=== PATIENT | female | born 1945 | race Hispanic/Latino ===

== ENCOUNTER 2018-03-24 20:23 | Inpatient (IN) | payer MEDICARE ==
[2018-03-24] MEDS ORDERED: Sodium Chloride 0.9% 1,000 ML IV ONE (20:46)
[2018-03-24] MEDS ORDERED: Sodium Chloride 0.9% 1,000 ML ONE (21:03)
[2018-03-24 21:11] LABS: BASO % 0.7 % (0.0-2.0); EOS % 0.6 % (0.0-4.0); HEMOGLOBIN 13.6 g/dL (11.0-16.0); LYMPH # 0.8 K/uL (1.0-4.3); MEAN CELL VOLUME 94.3 fL (81.0-99.0); MEAN CORPUSCULAR HEMOGLOBIN 32.4 pg (27.0-31.0); MEAN CORPUSCULAR HGB CONC 34.3 g/dL (33.0-37.0); MONO # 0.6 K/uL (0.0-0.8); MONO % 9.9 % (0.0-10.0); NEUT % 76.8 % (50.0-75.0); RBC 4.21 Mil/uL (3.80-5.20); RED CELL DISTRIBUTION WIDTH 14.3 % (11.5-14.5); WHITE BLOOD COUNT 6.5 K/uL (4.8-10.8)
[2018-03-24 21:15] LABS: ALBUMIN 3.5 g/dL (3.5-5.0); ALT/SGPT 23 U/L (9-52); AST/SGOT 39 U/L (14-36); BLOOD UREA NITROGEN 17 mg/dL (7-17); CALCIUM 8.5 mg/dl (8.6-10.4); GFR AFRICAN-AMERICAN > 60; GFR NON-AFRICAN AMERICAN > 60; LIPASE 125 U/L (23-300)
--- NOTE | 2018-03-24 21:18 | C.PDOC ---
History Of Present Illness 72 year female with no significant PMHx presents to the ED c/o weight loss of approximately 20 Lbs since last year along with frequent diarrhea stools. Patient also states having heat intolerance along with lower extremity swelling. Patient went to her PMD and was told she had hyperthyroidism and was placed on methimazole and betta blockers. Patient noted that since then diarrhea diminished however she still having 3-4 bowel movements a day. Patient recently ahd her betta fabienne changed from metoprolol to propanolol because her pulse was at 120s after changing the medication pulsed lowered to 100. Patient denies recent travel, recent camping, sick contacts. Chief Complaint (Nursing): GI Problem History Per: Patient History/Exam Limitations: no limitations Onset/Duration Of Symptoms: Days Current Symptoms Are (Timing): Still Present Location Of Pain/Discomfort: Diffuse Associated Symptoms: Diarrhea. denies: Nausea, Vomiting Exacerbating Factors: None Alleviating Factors: None Recent travel outside of the [place]: No Additional History Per: Patient Abnormal Vaginal Bleeding: No Past Medical History Reviewed: Historical Data, Nursing Documentation, Vital Signs Vital Signs: Last Vital Signs Temp 100.1 F H 03/24/18 21:08 Pulse 82 03/24/18 23:35 Resp 19 03/24/18 23:35 BP 86/32 L 03/24/18 23:35 Pulse Ox 95 03/24/18 23:44 - Medical History PMH: Cardia Arrhythmia, Hyperthyroidism (DX 2017. MARCH) Surgical History: No Surg Hx Family History: States: Unknown Family Hx - Social History Hx Alcohol Use: No Hx Substance Use: No - Immunization History Hx Tetanus Toxoid Vaccination: No Hx Influenza Vaccination: No Hx Pneumococcal Vaccination: No Review Of Systems Constitutional: Positive for: Weakness. Negative for: Fever, Chills Cardiovascular: Negative for: Chest Pain, Palpitations Respiratory: Negative for: Shortness of Breath Gastrointestinal: Positive for: Diarrhea. Negative for: Vomiting, Abdominal Pain Skin: Negative for: Rash Psych: Negative for: Depression, Suicidal ideation Physical Exam - Physical Exam Appears: Non-toxic, No Acute Distress Skin: Normal Color, Warm, Dry, Other (poor turgor ) Head: Atraumatic, Normacephalic Eye(s): bilateral: Normal Inspection Nose: No Discharge Oral Mucosa: Moist Neck: Normal ROM, Supple, Other (no thyromegaly) Chest: Symmetrical Cardiovascular: Rhythm Regular (midly accelerated at 104), No Murmur, No JVD Respiratory: Normal Breath Sounds, No Rales, No Rhonchi, No Wheezing Gastrointestinal/Abdominal: Soft, No Tenderness, No Guarding, No Rebound Extremity: Normal ROM, No Tenderness, Capillary Refill (< 2 seconds), Swelling ( 2+ b/l mid calf area) Pulses: Left Dorsalis Pedis: Normal, Right Dorsalis Pedis: Normal Neurological/Psych: Oriented x3, Normal Speech, Normal Cranial Nerves, Normal Motor, Normal Sensation Gait: Steady ED Course And Treatment - Laboratory Results Result Diagrams: 03/24/18 20:59 03/24/18 20:59 O2 Sat by Pulse Oximetry: 95 (ON RA) Pulse Ox Interpretation: Normal - CT Scan/US US abdomen Other Rad Studies (CT/US): Read By Radiologist, Radiology Report Reviewed CT/US Interpretation: FINDINGS: Liver: The liver measures 15.7 cm in craniocaudal span. No intrahepatic bile duct dilation. Gallbladder: Gallstones are seen in the gallbladder. The gallbladder wall is thickened measuring 5. mm. A trace amount of pericholecystic fluid is noted. Common bile duct: The common bile duct measures 4 mm. No stones. No dilation. Pancreas: The pancreatic head is not well-seen due to overlying bowel gas. The pancreatic tail is. not well-seen due to bowel gas. Right kidney: The right kidney measures 11.6 x 4.5 x 5.8 cm. No stones. No hydronephrosis. Free fluid: There is normal blood flow direction in the main portal vein. IMPRESSION: 1. Cholelithiasis with gallbladder wall thickening and small amount of pericholecystic fluid. This could. represent acute cholecystitis. Clinical correlation suggested.. Medical Decision Making Medical Decision Making: Impression: diarrhea related to hyperthyroidism, acute febrile illness, Gastroenteritis Plan: * Labs * IV fluids * Tylenol 650 mg PO * Zofran 4 mg IVP * Blood culture * Urine culture * Stool culture * UA Disposition - Disposition Disposition: HOSPITALIZED Disposition Time: 05:35 Condition: FAIR - Clinical Impression Clinical Impression: Cholecystitis - Scribe Statement The provider has reviewed the documentation as recorded by the Scribe Winston Lazaro All medical record entries made by the Scribe were at my direction and personally dictated by me. I have reviewed the chart and agree that the record accurately reflects my personal performance of the history, physical exam, medical decision making, and the department course for this patient. I have also personally directed, reviewed, and agree with the discharge instructions and disposition.
--- NOTE | 2018-03-24 23:41 | US ---
EXAM: US Abdomen Limited, Right Upper Quadrant EXAM DATE/TIME: Exam ordered 03/24/2018 10:04 PM CLINICAL HISTORY: 72 years old, female; Pain; Abdominal pain; Additional info: Lft elevation, pain TECHNIQUE: Real-time ultrasound of the right upper quadrant with image documentation. COMPARISON: No relevant prior studies available. FINDINGS: Liver: The liver measures 15.7 cm in craniocaudal span. No intrahepatic bile duct dilation. Gallbladder: Gallstones are seen in the gallbladder. The gallbladder wall is thickened measuring 5 mm. A trace amount of pericholecystic fluid is noted. Common bile duct: The common bile duct measures 4 mm. No stones. No dilation. Pancreas: The pancreatic head is not well-seen due to overlying bowel gas. The pancreatic tail is not well-seen due to bowel gas. Right kidney: The right kidney measures 11.6 x 4.5 x 5.8 cm. No stones. No hydronephrosis. Free fluid: There is normal blood flow direction in the main portal vein. IMPRESSION: 1. Cholelithiasis with gallbladder wall thickening and small amount of pericholecystic fluid. This could represent acute cholecystitis. Clinical correlation suggested..
[2018-03-24] MEDS ORDERED: Piperacillin/Tazobact 2.25 gm Inj IVPB STA (23:52)
[2018-03-25] MEDS ORDERED: Piperacillin/Tazobact 3.375 gm 100 ML IVPB ONE (00:07)
[2018-03-25] MEDS ORDERED: Iodixanol 320 MG/ML 100 ML BOTTLE IV ONE (01:31)
--- NOTE | 2018-03-25 01:44 | CP.PCM.CON ---
<Gregg John - Last Filed: 03/25/18 01:39> History of Present Illness - History of Present Illness History of Present Illness: Surgery: Dr. Cummins Reason for consult: r/o cholecystitis CC: yellow diarrhea HPI: Patient is a 72 y/o F w/ recent pmhx of hyperthyroidism presents complaining of yellow colored diarrhea, n/v which started about 1 day ago. She denies pain. She reports similar symptoms in the past on and off for about 20 years. She denies blood in stool or vomit. She states she notices the change in stool when she "eats something she isn't supposed to" i.e fatty foods. She states she has been told she has gallstones in the past and had pain before but currently denies similar symptoms of pain. She denies chest pain, SOB. She complains of subjective fever and chills. PMH: hyperthyroidism currently on Methimazole and Propranolol PSH: none Social: current light tobacco user however has smoked almost a pack/day since age 16, denies ETOH or drug abuse. Lives with family. Review of Systems - Constitutional Constitutional: Anorexia, Chills, Fever - EENT Eyes: absent: Blurred Vision, Change in Vision Ears: absent: Disequilibrium, Dizziness Nose/Mouth/Throat: absent: Nasal Congestion, Nasal Trauma - Cardiovascular Cardiovascular: absent: Chest Pain, Diaphoresis, Dyspnea - Respiratory Respiratory: absent: Cough, Wheezing - Gastrointestinal Gastrointestinal: Change in Stool Character, Diarrhea, Loose Stools, Nausea, Vomiting. absent: Abdominal Pain, Bloating, Constipation, Hematemesis, Hematochezia - Genitourinary Genitourinary: absent: Hematuria, Pyuria - Musculoskeletal Musculoskeletal: absent: Back Pain, Neck Pain - Integumentary Integumentary: absent: Acne, Bleeding Lesions - Neurological Neurological: absent: Disequilibrium, Dizziness - Psychiatric Psychiatric: absent: Anxiety, Depression - Endocrine Endocrine: absent: Polyphagia, Polyuria - Hematologic/Lymphatic Hematologic: absent: Easy Bleeding, Easy Bruising Past Patient History - Past Social History Smoking Status: Light Smoker < 10 Cigarettes Daily - CARDIAC Hx Cardia Arrhythmia: Yes - ENDOCRINE/METABOLIC Hx Hyperthyroidism: Yes (DX March) - PSYCHIATRIC Hx Substance Use: No Meds Allergies/Adverse Reactions: Allergies Allergy/AdvReac Type Severity Reaction Status Date / Time No Known Allergies Allergy Unverified 03/24/18 20:31 - Medications Medications: Current Medications Acetaminophen (Tylenol 325mg Tab) 650 mg PO Q6 PRN PRN Reason: Fever >100.4 F Lactated Ringer's (Lactated Ringer's) 1,000 mls @ 75 mls/hr IV .[id number] NEREYDA Ondansetron HCl (Zofran Inj) 4 mg IVP Q4 PRN PRN Reason: Nausea/Vomiting Physical Exam - Constitutional Appears: Non-toxic, No Acute Distress, Chronically Ill - Head Exam Head Exam: ATRAUMATIC, NORMOCEPHALIC - Eye Exam Eye Exam: EOMI, Normal appearance - ENT Exam ENT Exam: Mucous Membranes Moist - Respiratory Exam Respiratory Exam: NORMAL BREATHING PATTERN. absent: Respiratory Distress - Cardiovascular Exam Cardiovascular Exam: REGULAR RHYTHM. absent: Tachycardia - GI/Abdominal Exam GI & Abdominal Exam: Soft. absent: Distended, Guarding, Hernia, Rebound, Rigid , Tenderness - Extremities Exam Extremities exam: Positive for: normal inspection. Negative for: calf tenderness - Neurological Exam Neurological exam: Alert, Oriented x3 - Psychiatric Exam Psychiatric exam: Normal Affect, Normal Mood - Skin Skin Exam: Dry, Normal Color, Warm Results - Vital Signs Recent Vital Signs: Last Vital Signs Temp 100.1 F H 03/24/18 21:08 Pulse 82 03/24/18 23:35 Resp 19 03/24/18 23:35 BP 86/32 L 03/24/18 23:35 Pulse Ox 95 03/24/18 23:44 - Labs Result Diagrams: 03/24/18 20:59 03/24/18 20:59 Labs: Laboratory Results - last 24 hr 03/24/18 03/24/18 03/24/18 20:59 20:59 21:06 WBC 6.5 RBC 4.21 Hgb 13.6 Hct 39.7 MCV 94.3 MCH 32.4 H MCHC 34.3 RDW 14.3 Plt Count 114 L MPV 9.0 Neut % (Auto) 76.8 H Lymph % (Auto) 12.0 L Parmer % (Auto) 9.9 Eos % (Auto) 0.6 Baso % (Auto) 0.7 Neut # (Auto) 5.0 Lymph # (Auto) 0.8 L Parmer # (Auto) 0.6 Eos # (Auto) 0.0 Baso # (Auto) 0.0 Differential Comment Sodium 134 Potassium 4.8 Chloride 97 L Carbon Dioxide 21 L Anion Gap 21 H BUN 17 Creatinine 0.6 L Est GFR ( Amer) > 60 Est GFR (Non-Af Amer) > 60 Random Glucose 91 Lactic Acid 2.4 H Calcium 8.5 L Total Bilirubin 3.5 H AST 39 H ALT 23 Alkaline Phosphatase 103 Total Protein 7.0 Albumin 3.5 Globulin 3.5 Albumin/Globulin Ratio 1.0 Lipase 125 - Imaging and Cardiology US - abdomen Status: Report reviewed by me Additional comment: 5mm GB wall, + fluid, + stones, CBD 4mm no stones or dilation Assessment & Plan - Assessment and Plan (Free Text) Assessment: 72 y/o female w/ diarrhea found to have cholelithiasis r/o cholecystitis Plan: -Tbili 3.5-> will repeat in am after hydration if remains elevated will consider MRCP -plan for HIDA in am, patient w/o abdominal pain at this time -NPO- ok for meds -IVF hydration -symptomatic control -f/u CT scan -pending HIDA determines further surgical intervention, will need full medical clearance prior to OR. -further recs per Dr. Maria G Cross PGY3 <Warren Cummins - Last Filed: 03/29/18 22:09> Meds - Medications Medications: Current Medications Acetaminophen (Tylenol 650mg/20.3ml Solution Ud) 650 mg PO Q4H PRN PRN Reason: Temperature above 100.6 Last Admin: 03/28/18 14:47 Dose: 650 mg Cholestyramine Resin (Prevalite) 4 gm PO Q8H NEREYDA Last Admin: 03/29/18 15:20 Dose: 4 gm Famotidine (Pepcid) 20 mg PO BID NEREYDA Last Admin: 03/29/18 17:57 Dose: 20 mg Norepinephrine Bitartrate 4 mg (/ Dextrose) 254 mls @ 15.24 mls/hr IV .[id number] PRN; Protocol; 4 MCG/MIN PRN Reason: TITRATE PER MD ORDER Last Admin: 03/29/18 17:51 Dose: 3 mcg/min, 11.43 mls/hr Vasopressin 40 units/ Sodium (Chloride) 40 mls @ 0.6 mls/hr IV .Q24H NEREYDA; 0.01 UNITS/MIN PRN Reason: Protocol Last Admin: 03/29/18 17:49 Dose: 0.03 units/min, 1.8 mls/hr Meropenem 500 mg/ Sodium (Chloride) 100 mls @ 100 mls/hr IVPB Q8 NEREYDA PRN Reason: Protocol Last Admin: 03/29/18 21:09 Dose: 100 mls/hr Vancomycin/Sodium Chloride (Vancomycin 1 Gm/Ns 200 Ml) 1 gm in 200 mls @ 166.7 mls/hr IVPB Q24H NEREYDA PRN Reason: Protocol Stop: 04/01/18 10:01 Last Admin: 03/29/18 09:51 Dose: 166.7 mls/hr Acyclovir 500 mg/ Sodium (Chloride) 100 mls @ 100 mls/hr IV Q12H NEREYDA PRN Reason: Protocol Last Admin: 03/29/18 15:20 Dose: 100 mls/hr Sodium Chloride (Sodium Chloride 0.9%) 1,000 mls @ 75 mls/hr IV .[id number] [facility] Last Admin: 03/29/18 09:49 Dose: Not Given Fluconazole (Diflucan Iv 100 Mg/50 Ml Ns) 50 mls @ 100 mls/hr IVPB Q24H [facility] PRN Reason: Protocol Last Admin: 03/29/18 17:46 Dose: 100 mls/hr Levetiracetam 1,000 mg/ Sodium (Chloride) 110 mls @ 420 mls/hr IVPB Q12H [facility] Last Admin: 03/29/18 14:41 Dose: 420 mls/hr Propofol (Diprivan) 1,000 mg in 100 mls @ 1.742 mls/hr IV .Q24H PRN; Protocol; 5 MCG/KG/MIN PRN Reason: TITRATE PER MD ORDER Last Admin: 03/29/18 13:46 Dose: 5 mcg/kg/min, 1.742 mls/hr Insulin Aspart (Novolog) 0 unit SC Q6H [facility] PRN Reason: Protocol Last Admin: 03/29/18 17:57 Dose: Not Given Lactulose (Enulose) 20 gm PO BID [facility] Last Admin: 03/29/18 17:47 Dose: 20 gm Midodrine (Proamatine) 5 mg PO Q8H [facility] Last Admin: 03/29/18 21:19 Dose: 5 mg Phytonadione (Vitamin K Tab) 10 mg PO DAILY NEREYDA Stop: 03/31/18 10:01 Last Admin: 03/29/18 16:00 Dose: 10 mg Potassium Phos/Sodium Phos (Neutra-Phos) 1 pkt PO BID [facility] Last Admin: 03/29/18 17:59 Dose: 1 pkt Propranolol HCl (Inderal) 10 mg PO DAILY [facility] Last Admin: 03/29/18 09:50 Dose: 10 mg Propylthiouracil (Propylthiouracil) 300 mg PO Q8H NEREYDA Stop: 03/30/18 12:01 Last Admin: 03/29/18 21:00 Dose: 300 mg Results - Vital Signs Recent Vital Signs: Last Vital Signs Temp 97.8 F 03/29/18 16:00 Pulse 74 03/29/18 18:11 Resp 23 03/29/18 18:11 BP 106/49 L 03/29/18 18:11 Pulse Ox 92 L 03/29/18 18:11 - Labs Result Diagrams: 03/29/18 07:04 03/29/18 07:01 Labs: Laboratory Results - last 24 hr 03/29/18 03/29/18 03/29/18 05:22 07:01 07:01 WBC RBC Hgb Hct MCV MCH MCHC RDW Plt Count MPV Neut % (Auto) Lymph % (Auto) Parmer % (Auto) Eos % (Auto) Baso % (Auto) Neut # (Auto) Lymph # (Auto) Parmer # (Auto) Eos # (Auto) Baso # (Auto) PT INR Puncture Site Rr pCO2 40 pO2 71 L HCO3 33.2 H ABG pH 7.54 H ABG Total CO2 35.4 H ABG O2 Saturation 97.6 ABG Base Excess 10.7 H ABG Hemoglobin 11.9 ABG Carboxyhemoglobin 2.1 H POC ABG HHb (Measured) 2.3 ABG Methemoglobin 1.1 Jake Test Pos A-a O2 Difference 236.0 Respiratory Index 3.3 Hgb O2 Saturation 94.5 L Vent Mode Prvc Mechanical Rate 12 FiO2 50.0 Tidal Volume 380 PEEP 5 Sodium 140 Potassium 3.4 L Chloride 97 L Carbon Dioxide 35 H Anion Gap 12 BUN 45 H Creatinine 0.6 L Est GFR ( Amer) > 60 Est GFR (Non-Af Amer) > 60 Random Glucose 162 H Lactic Acid Calcium 7.5 L Phosphorus 1.4 L Magnesium 2.0 Total Bilirubin 7.2 H AST 2139 H ALT 914 H Alkaline Phosphatase 86 Total Protein 4.6 L Albumin 1.9 L Globulin 2.7 Albumin/Globulin Ratio 0.7 L Free T4 Thyroxine (T4) 6.18 Free T3 pg/mL 7.99 H Total T3 1.76 03/29/18 03/29/18 03/29/18 07:04 07:05 15:20 WBC 13.0 H RBC 3.90 Hgb 12.3 Hct 37.0 MCV 95.1 MCH 31.7 H MCHC 33.3 RDW 14.3 Plt Count 85 L MPV 11.1 Neut % (Auto) 80.1 H Lymph % (Auto) 13.3 L Parmer % (Auto) 5.5 Eos % (Auto) 0.9 Baso % (Auto) 0.2 Neut # (Auto) 10.4 H Lymph # (Auto) 1.7 Parmer # (Auto) 0.7 Eos # (Auto) 0.1 Baso # (Auto) 0.0 PT 30.2 H* INR 2.8 Puncture Site pCO2 pO2 HCO3 ABG pH ABG Total CO2 ABG O2 Saturation ABG Base Excess ABG Hemoglobin ABG Carboxyhemoglobin POC ABG HHb (Measured) ABG Methemoglobin Jake Test A-a O2 Difference Respiratory Index Hgb O2 Saturation Vent Mode Mechanical Rate FiO2 Tidal Volume PEEP Sodium Potassium Chloride Carbon Dioxide Anion Gap BUN Creatinine Est GFR ( Amer) Est GFR (Non-Af Amer) Random Glucose Lactic Acid Calcium Phosphorus Magnesium Total Bilirubin AST ALT Alkaline Phosphatase Total Protein Albumin Globulin Albumin/Globulin Ratio Free T4 5.21 H Thyroxine (T4) Free T3 pg/mL Total T3 03/29/18 15:29 WBC RBC Hgb Hct MCV MCH MCHC RDW Plt Count MPV Neut % (Auto) Lymph % (Auto) Parmer % (Auto) Eos % (Auto) Baso % (Auto) Neut # (Auto) Lymph # (Auto) Parmer # (Auto) Eos # (Auto) Baso # (Auto) PT INR Puncture Site pCO2 pO2 HCO3 ABG pH ABG Total CO2 ABG O2 Saturation ABG Base Excess ABG Hemoglobin ABG Carboxyhemoglobin POC ABG HHb (Measured) ABG Methemoglobin Jake Test A-a O2 Difference Respiratory Index Hgb O2 Saturation Vent Mode Mechanical Rate FiO2 Tidal Volume PEEP Sodium Potassium Chloride Carbon Dioxide Anion Gap BUN Creatinine Est GFR ( Amer) Est GFR (Non-Af Amer) Random Glucose Lactic Acid 1.7 Calcium Phosphorus Magnesium Total Bilirubin AST ALT Alkaline Phosphatase Total Protein Albumin Globulin Albumin/Globulin Ratio Free T4 Thyroxine (T4) Free T3 pg/mL Total T3 Attending/Attestation - Attestation I have personally seen and examined this patient.: Yes I have fully participated in the care of the patient.: Yes I have reviewed all pertinent clinical information: Yes Notes (Text): Pt was seen and examined at bedside Agree with above note and assessment Pt with severe gastroenteritis with gallstones Labs and radiology reviewed Ass: Gastroenteritis with acidosis with septic shock, gallstone Plan : GI consult ICU management IV antibiotics NPO, IVF Plan d.w pt in detail Risk and benefit explained in detail.
[2018-03-25] MEDS ORDERED: Lactated Ringer's 1,000 ML IV SCH ×3 (01:45→11:03)
[2018-03-25] MEDS ORDERED: Vitamins A & D Oint UD Foilpak ONE (02:12)
[2018-03-25] MEDS ORDERED: Sodium Chloride 0.9% 1,000 ML IV SCH (02:15)
--- NOTE | 2018-03-25 02:24 | CP.PCM.HP ---
<Mayda Estevez - Last Filed: 03/25/18 02:15> History of Present Illness - History of Present Illness History of Present Illness: H&P: 72 year old female with past medical history of recently diagnosed hyperthyroidism 2 weeks ago presented to hospital for intractable diarrhea, N/V and fall. Patient's daughter is at bedside and helps with history. Since yesterday, patient complained of subjective fevers and chills. Yesterday evening patient developed diarrhea with loose watery stools and N/V. She had about 3 episodes of NB/NB vomiting. patient denies having any hematochezia or hemetemesis. Later in the evening, patient was trying to get out of bed when she felt very dizzy and she fell. Denies hitting her or any LOC. Patient was then brought to ED. Patient was diagnosed with hyperthyroidism 2 weeks ago at which point she was started on methimazole and metoprolol. Due to feeling tired and fatigued, her BB was switched to propanolol earlier yesterday by her field traffic investigator and her methimazole was increased as well from tid to QID. ROS: Currently denies CP, SOB, abd pain, N/V, F/C, LA, dizziness. Patient is still c/o diarrhea and lightheadedness PMHx: stated above Sx: denies Social: current smoker 40-50 years, denies ETOH or drug use Meds: methimazole 10 mg BID and Propanolol 20 mg PO BID PMD: Tamra Marie Endo: Dr. Jess Veloz Cardio: Dr. Wilhelm Present on Admission - Present on Admission Any Indicators Present on Admission: No Review of Systems - Constitutional Constitutional: Chills, Fever - EENT Eyes: absent: Blurred Vision, Change in Vision Nose/Mouth/Throat: absent: Nasal Congestion, Nasal Discharge - Cardiovascular Cardiovascular: absent: Chest Pain, Dyspnea, Dyspnea on Exertion, Edema, Leg Edema - Respiratory Respiratory: absent: Cough, Dyspnea, Wheezing, Chest Congestion - Gastrointestinal Gastrointestinal: Diarrhea, Loose Stools, Nausea, Vomiting. absent: Abdominal Pain, Bloating, Constipation, Hematemesis, Hematochezia - Genitourinary Genitourinary: absent: Dysuria, Urinary Urgency - Musculoskeletal Musculoskeletal: absent: Back Pain, Numbness, Tingling - Integumentary Integumentary: absent: Acne, Lesions, Rash, Wounds - Neurological Neurological: absent: Tingling, Weakness - Psychiatric Psychiatric: absent: Anxiety, Depression - Endocrine Endocrine: Palpitations Past Patient History - Past Social History Smoking Status: Light Smoker < 10 Cigarettes Daily Chewing Tobacco Use: No Cigar Use: No Alcohol: None Drugs: Denies - CARDIAC Hx Cardia Arrhythmia: Yes - ENDOCRINE/METABOLIC Hx Hyperthyroidism: Yes (DX March) - PSYCHIATRIC Hx Substance Use: No Meds Allergies/Adverse Reactions: Allergies Allergy/AdvReac Type Severity Reaction Status Date / Time No Known Allergies Allergy Unverified 03/24/18 20:31 Physical Exam - Constitutional Appears: Non-toxic, No Acute Distress - Head Exam Head Exam: ATRAUMATIC - Eye Exam Eye Exam: EOMI - ENT Exam ENT Exam: Mucous Membranes Moist - Respiratory Exam Respiratory Exam: Clear to Auscultation Bilateral. absent: Rales, Rhonchi, Wheezes, Respiratory Distress - Cardiovascular Exam Cardiovascular Exam: REGULAR RHYTHM, +S1, +S2. absent: Diastolic murmur, Gallop , Rubs, Systolic Murmur - GI/Abdominal Exam GI & Abdominal Exam: Normal Bowel Sounds, Soft. absent: Distended, Firm, Guarding, Rebound, Rigid, Tenderness - Extremities Exam Extremities exam: Negative for: pedal edema, tenderness - Neurological Exam Neurological exam: Alert, Oriented x3 - Psychiatric Exam Psychiatric exam: Normal Affect, Normal Mood - Skin Skin Exam: Dry, Intact, Normal Color, Warm Results - Vital Signs Recent Vital Signs: Last Vital Signs Temp 100.1 F H 03/24/18 21:08 Pulse 82 03/24/18 23:35 Resp 19 03/24/18 23:35 BP 86/32 L 03/24/18 23:35 Pulse Ox 95 03/24/18 23:44 - Labs Result Diagrams: 03/24/18 20:59 03/24/18 20:59 Labs: Laboratory Results - last 24 hr 03/24/18 03/24/18 03/24/18 20:59 20:59 21:06 WBC 6.5 RBC 4.21 Hgb 13.6 Hct 39.7 MCV 94.3 MCH 32.4 H MCHC 34.3 RDW 14.3 Plt Count 114 L MPV 9.0 Neut % (Auto) 76.8 H Lymph % (Auto) 12.0 L [place] % (Auto) 9.9 Eos % (Auto) 0.6 Baso % (Auto) 0.7 Neut # (Auto) 5.0 Lymph # (Auto) 0.8 L [place] # (Auto) 0.6 Eos # (Auto) 0.0 Baso # (Auto) 0.0 Differential Comment Sodium 134 Potassium 4.8 Chloride 97 L Carbon Dioxide 21 L Anion Gap 21 H BUN 17 Creatinine 0.6 L Est GFR ( Amer) > 60 Est GFR (Non-Af Amer) > 60 Random Glucose 91 Lactic Acid 2.4 H Calcium 8.5 L Total Bilirubin 3.5 H AST 39 H ALT 23 Alkaline Phosphatase 103 Total Protein 7.0 Albumin 3.5 Globulin 3.5 Albumin/Globulin Ratio 1.0 Lipase 125 Assessment & Plan - Assessment and Plan (Free Text) Assessment: 72 year old female with past medical history of recently diagnosed hyperthyroidism is admitted for intractable diarrhea, N/V likely 2/2 gastroenteritis vs. cholecystitis vs. hyperthyroidism. US on admission showed cholelithiasis with gallbladder wall thickening and small amount of pericholecystic fluid which could represent acute cholecystitis. Patient was noted to have low grade temp of 100.1 on admission and was tachycardic. Intractable diarrhea - 2/2 gastroeneteritis vs. hyperthyroidism vs. cholecystitis - Will check stool studies for stool leukocytes, cultures, c diff and electrolytes - Will also check TSH and Free T4 - NS 100 cc - Will monitor Is and Os Cholelithiasis - with questionable cholecystitis seen on US - Surgery, Dr. Cummins consulted - Will check CT of abd pelvis. HIDA scan also ordered for am - NPO - Pain management with tylenol prn - zofran prn Hyperthyroidism - Recently diagnosed 2 weeks ago. - Will continue home medication: methimazole 10 mg BID - will hold propanolol for now until pt fluid resuscitated - Will check TSh and free T4 Lightheadedness - Likely due to dehydration vs. BB - Will start pt on LR 100 cc - Will check echo in am Prophylaxis - SCDs - Lovenox - Pepcid Case discussed with attending, dr. Quach - Date & Time Date: 03/25/18 Time: 02:24 <Balwinder Quach - Last Filed: 03/25/18 07:59> Results - Vital Signs Recent Vital Signs: Last Vital Signs Temp 98.5 F 03/25/18 06:27 Pulse 86 03/25/18 05:43 Resp 20 03/25/18 05:43 BP 101/48 L 03/25/18 05:43 Pulse Ox 92 L 03/25/18 05:43 - Labs Result Diagrams: 03/25/18 05:57 03/24/18 20:59 Labs: Laboratory Results - last 24 hr 03/24/18 03/24/18 03/24/18 20:59 20:59 21:06 WBC 6.5 RBC 4.21 Hgb 13.6 Hct 39.7 MCV 94.3 MCH 32.4 H MCHC 34.3 RDW 14.3 Plt Count 114 L MPV 9.0 Neut % (Auto) 76.8 H Lymph % (Auto) 12.0 L [place] % (Auto) 9.9 Eos % (Auto) 0.6 Baso % (Auto) 0.7 Neut # (Auto) 5.0 Lymph # (Auto) 0.8 L [place] # (Auto) 0.6 Eos # (Auto) 0.0 Baso # (Auto) 0.0 Differential Comment Sodium 134 Potassium 4.8 Chloride 97 L Carbon Dioxide 21 L Anion Gap 21 H BUN 17 Creatinine 0.6 L Est GFR ( Amer) > 60 Est GFR (Non-Af Amer) > 60 Random Glucose 91 Lactic Acid 2.4 H Calcium 8.5 L Total Bilirubin 3.5 H AST 39 H ALT 23 Alkaline Phosphatase 103 Total Protein 7.0 Albumin 3.5 Globulin 3.5 Albumin/Globulin Ratio 1.0 Lipase 125 Thyroxine (T4) TSH 3rd Generation 03/25/18 03/25/18 05:57 05:57 WBC 4.1 L RBC 3.74 L Hgb 12.0 Hct 35.3 MCV 94.4 MCH 32.1 H MCHC 34.0 RDW 13.9 Plt Count 88 L D MPV 8.6 Neut % (Auto) Lymph % (Auto) 13.3 L [place] % (Auto) 8.3 Eos % (Auto) 1.6 Baso % (Auto) 0.4 Neut # (Auto) Lymph # (Auto) 0.5 L [place] # (Auto) 0.3 Eos # (Auto) 0.1 Baso # (Auto) 0.0 Differential Comment Sodium Potassium Chloride Carbon Dioxide Anion Gap BUN Creatinine Est GFR ( Amer) Est GFR (Non-Af Amer) Random Glucose Lactic Acid Calcium Total Bilirubin AST ALT Alkaline Phosphatase Total Protein Albumin Globulin Albumin/Globulin Ratio Lipase Thyroxine (T4) 13.8 H TSH 3rd Generation < 0.02 L Attending/Attestation - Attestation I have personally seen and examined this patient.: Yes I have fully participated in the care of the patient.: Yes I have reviewed all pertinent clinical information: Yes Notes (Text): 03/25/18 07:54 * Hypotension likely form diarrhea, as presentation intractable, 2 days * Being treated and meds adjusted for hyperthyroid currently on methimazole 10mg bid, and propranolol 20mg bid * ? cholecystities distended gb lili gb fluid, and calculus, but clinically not tender no wbc count, if need any surg diagnosis should be confirmed by HIDA. * Tobacco abuse * Weight loss from hyperthyroid, which also needs out patient w/u to begin with thyroid scan, to r/o toxic nodule. * Prone to leg edema * Thrombocytopenia Plan IVF Possible hida continue methimazole, propranolol once fluid replaced and bp restored Echo Gi/dvt prophylaxis
--- NOTE | 2018-03-25 03:42 | CT ---
EXAM: CT Abdomen and Pelvis With Intravenous Contrast CLINICAL HISTORY: 72 years old, female; Pain; Abdominal pain TECHNIQUE: Axial computed tomography images of the abdomen and pelvis with intravenous contrast. All CT scans at this facility use one or more dose reduction techniques, viz.: automated exposure control; ma/kV adjustment per patient size (including targeted exams where dose is matched to indication; i.e. head); or iterative reconstruction technique. Coronal and sagittal reformatted images were created and reviewed. CONTRAST: 100 mL of administered intravenously. COMPARISON: US - GALL BLADDER 2018-03-24 22:36 FINDINGS: Lung bases: There is minimal bibasilar atelectasis. Pleural space: Trace right pleural effusion and overlying compressive atelectasis or infiltrate. Heart: The heart demonstrates mild diffuse enlargement. ABDOMEN: Liver: There is a focal liver hypodensity that cannot be further characterized on the current examination. Gallbladder and bile ducts: The gallbladder is distended and thickwalled. Mild haziness of the pericholecystic fat. No ductal dilation. Pancreas: The pancreatic duct is mildly prominent in the measuring 3 mm. In the pancreas is otherwise unremarkable. Spleen: There is a 7 mm hypervascular lesions. No splenomegaly. Adrenals: Unremarkable. No mass. Kidneys and ureters: There is a 3 mm stone in the lower pole of the left kidney.The right kidney is normal. No hydronephrosis. Stomach and bowel: Unremarkable. No obstruction. No mucosal thickening. PELVIS: Appendix: The appendix is mildly prominent measuring 7 mm. Bladder: Unremarkable. No mass. Reproductive: Unremarkable as visualized. ABDOMEN and PELVIS: Intraperitoneal space: Unremarkable. No free air. No significant fluid collection. Bones/joints: No acute fracture. No dislocation. Soft tissues: Unremarkable. Vasculature: The vasculature demonstrates diffuse mild atherosclerotic calcification. There is no evidence of an abdominal aortic aneurysm. Lymph nodes: Unremarkable. No enlarged lymph nodes. IMPRESSION: The gallbladder is distended and thickwalled with minimal stranding of the pericholecystic fat. The combination of findings including the ultrasound raises suspicion for acute cholecystitis. Refer to the dedicated abdominal ultrasound report. Small right pleural effusion with overlying compressive atelectasis or infiltrate. 5 mm small to characterize low-density liver lesion. For patients with low to average risk of malignancy, no further follow-up is necessary. For patients with high risk of malignancy (known malignancy that can metastasize or other risk factors), recommend follow-up abdominal CT or MR in 6 months. Hypervascular splenic lesion. Recommend follow-up abdominal MRI in 6-12 months.
[2018-03-25 06:03] LABS: RBC 3.74 Mil/uL (3.80-5.20); WHITE BLOOD COUNT 4.1 K/uL (4.8-10.8)
[2018-03-25 06:04] LABS: BASO % 0.4 % (0.0-2.0); EOS % 1.6 % (0.0-4.0); LYMPH # 0.5 K/uL (1.0-4.3); LYMPH % 13.3 % (20.0-40.0); MEAN CELL VOLUME 94.4 fL (81.0-99.0); MEAN CORPUSCULAR HEMOGLOBIN 32.1 pg (27.0-31.0); MEAN PLATELET VOLUME 8.6 fL (7.2-11.7); MONO # 0.3 K/uL (0.0-0.8); MONO % 8.3 % (0.0-10.0); RED CELL DISTRIBUTION WIDTH 13.9 % (11.5-14.5)
[2018-03-25 06:05] LABS: EOS # 0.1 K/uL (0.0-0.7)
[2018-03-25 06:34] LABS: T4 13.8 ug/dL (5.5-11.0)
[2018-03-25] MEDS ORDERED: methIMAzole 5 MG TAB PO SCH (10:00)
[2018-03-25] MEDS: methIMAzole 5 MG TAB PO SCH ×2 (11:08→18:55)
[2018-03-25] MEDS: Enoxaparin 40 mg Syringe SC SCH (12:33)
--- NOTE | 2018-03-25 12:34 | CP.PCM.PN ---
<Shannon Weaver - Last Filed: 03/25/18 16:02> Subjective - Date & Time of Evaluation Date of Evaluation: 03/25/18 Time of Evaluation: 08:00 - Subjective Subjective: Medicine Note for Hospitalist Service - Dr. Arnel Jean Patient was seen and examined at bedside. Patient reports weakness, nausea and diarrhea. Denied fever, chills, headache, chest pain, vomiting, or urinary symptoms. Objective - Vital Signs/Intake and Output Vital Signs (last 24 hours): Temp Pulse Resp BP Pulse Ox 98.9 F 121 H 23 104/54 L 94 L 03/25/18 11:47 03/25/18 11:40 03/25/18 11:40 03/25/18 11:06 03/25/18 11:40 Intake and Output: 03/25/18 03/25/18 06:59 18:59 Intake Total 100 Balance 100 - Medications Medications: Current Medications Acetaminophen (Tylenol 325mg Tab) 650 mg PO Q6 PRN PRN Reason: Fever >100.4 F Enoxaparin Sodium (Lovenox) 40 mg SC DAILY [facility] Last Admin: 03/25/18 12:33 Dose: 40 mg Famotidine (Pepcid) 20 mg PO BID [facility] Last Admin: 03/25/18 12:33 Dose: Not Given Lactated Ringer's (Lactated Ringer's) 1,000 mls @ 150 mls/hr IV .Q6H40M [facility] Last Admin: 03/25/18 11:07 Dose: 150 mls/hr Methimazole (Tapazole) 10 mg PO BID [facility] Last Admin: 03/25/18 11:08 Dose: 10 mg Ondansetron HCl (Zofran Inj) 4 mg IVP Q4 PRN PRN Reason: Nausea/Vomiting Propranolol HCl (Inderal) 10 mg PO DAILY [facility] - Labs Labs: 03/25/18 05:57 - Constitutional Appears: No Acute Distress - Head Exam Head Exam: NORMAL INSPECTION, NORMOCEPHALIC - Eye Exam Eye Exam: EOMI, Normal appearance (no exolpthamous noted ), PERRL Pupil Exam: NORMAL ACCOMODATION - ENT Exam ENT Exam: Mucous Membranes Dry, Normal Oropharynx - Neck Exam Neck Exam: absent: Thyromegaly (no nodules palpated ) - Respiratory Exam Respiratory Exam: Clear to Ausculation Bilateral, NORMAL BREATHING PATTERN - Cardiovascular Exam Cardiovascular Exam: Tachycardia - GI/Abdominal Exam GI & Abdominal Exam: Soft, Tenderness (generalized ), Normal Bowel Sounds - Extremities Exam Extremities Exam: Normal Inspection. absent: Pedal Edema, Tenderness - Neurological Exam Neurological Exam: Alert, Awake, Oriented x3 - Psychiatric Exam Psychiatric exam: Normal Affect, Normal Mood - Skin Skin Exam: Dry, Intact, Normal Color, Warm Assessment and Plan - Assessment and Plan (Free Text) Assessment: 72 year old female with past medical history of recently diagnosed hyperthyroidism is admitted for intractable diarrhea, N/V likely 2/2 gastroenteritis vs. cholecystitis vs. hyperthyroidism. Abdominal US on admission showed cholelithiasis with gallbladder wall thickening and small amount of pericholecystic fluid which could represent acute cholecystitis. HIDA - negative, cystic duct patent. Plan: Hyperthyroidism - Patient's mobile tester does not come to [facility]; Dr. Ani House consulted - Recently diagnosed 2 weeks ago - Thyroid US: no nodules, cysts, or masses noted - TSH: < 0.02, T4: 13.8, will repeat - Will continue the following medications and adjust accordingly: methimazole 10 mg BID, restarted propanolol 10mg PO daily - F/U autoimmune work up Tachycardia Likely 2/2 Hyperthyroidism - Will continue the following medications and adjust accordingly: methimazole 10 mg BID, restarted propanolol 10mg PO daily Intractable diarrhea Dehydration Dizziness - Likely secondary to hyperthyroidism - Will check stool studies for stool leukocytes, cultures, c diff and electrolytes - LR @150cc/hr - Once stool studies negative for infective cause, will place on Imodium for relief - Currently on liquid diet will advance as tolerated Hx of Cholelithiasis Ruled out Acute Cholecystitis - Surgery, Dr. Cummins consulted - CT of abd pelvis: GB distended and thick walled; combination of findings when associated with ultrasound are suspicuous for acute julio. - Abdominal US: cholelithiasis with GBW thickening and small amounts of percholecystic fluid. This could represent Acute cholecystitis. - HIDA scan: negative; patent cystic duct Liver Lesion - Incidental finding on CT. 5mm small lesion. If low risk of malignancy, no further follow up necessary. If high risk, recommended follow up CT or MRI in 6- 12 months. 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 Recommended follow up abdominal MRI in 6-12 months. Prophylaxis - SCDs - Lovenox - Pepcid Disposition: Pending reccs from [facility] for medical optimization to control her sympathetic symptoms. Rule out infectious cause for n/v/d. DW Dr. Arnel Jean, Shannon Weaver DO, PGY1 <Arnel Jean H - Last Filed: 03/25/18 16:38> Objective - Vital Signs/Intake and Output Vital Signs (last 24 hours): Temp Pulse Resp BP Pulse Ox 98.9 F 104 H 29 H 119/78 98 03/25/18 11:47 03/25/18 14:00 03/25/18 14:00 03/25/18 12:36 03/25/18 14:00 Intake and Output: 03/25/18 03/25/18 06:59 18:59 Intake Total 100 Balance 100 - Medications Medications: Current Medications Acetaminophen (Tylenol 650mg/20.3ml Solution Ud) 650 mg PO Q4H PRN PRN Reason: Temperature above 100.6 Enoxaparin Sodium (Lovenox) 40 mg SC DAILY [facility] Last Admin: 03/25/18 12:33 Dose: 40 mg Famotidine (Pepcid) 20 mg PO BID [facility] Last Admin: 03/25/18 12:33 Dose: Not Given Lactated Ringer's (Lactated Ringer's) 1,000 mls @ 150 mls/hr IV .Q6H40M [facility] Last Admin: 03/25/18 11:07 Dose: 150 mls/hr Ibuprofen (Motrin Tab) 400 mg PO Q6H PRN PRN Reason: Pain, Mild (1-3) Methimazole (Tapazole) 10 mg PO BID [facility] Last Admin: 03/25/18 11:08 Dose: 10 mg Ondansetron HCl (Zofran Inj) 4 mg IVP Q4 PRN PRN Reason: Nausea/Vomiting Propranolol HCl (Inderal) 10 mg PO DAILY [facility] - Labs Labs: 03/25/18 05:57 Attending/Attestation - Attestation I have personally seen and examined this patient.: Yes I have fully participated in the care of the patient.: Yes I have reviewed all pertinent clinical information, including history, physical exam and plan: Yes Notes (Text): 03/25/18 16:32 Medical attending: Patient was seen and eamined by me. Agree with the above note by the resident The patient is a 72 YO female who family explains has been recently diagnosed hyperthyroidism The patient has just been started on medication by her mobile tester She has been having a lot of diarrhea that is watery and it appears she has been dehydrated from this. We are continuing the patient on IVF - the blood pressure improved. When first arrived to hospital there was U/S and also CT of abdomen suggesting possible cholecystitis - however she does not have a WBC and never reported abdominal pain. HIDA scan returned and was normal. Will need ultrasound of thyroid, conintue with the tapazole and also propranolol , and also endocrinology evaluation and also replacement of IVF thank you Arnel Jean
--- NOTE | 2018-03-25 12:53 | NM ---
PROCEDURE: Nuclear Medicine Hepatobiliary Scan HISTORY: r/o cholecystitis COMPARISON: None available. TECHNIQUE: 8.3 mCi of technetium 99m Mebrofenin was administered intravenously. Planar images of the abdomen were obtained at 5 min intervals to 60 mins. Delayed images were also obtained. FINDINGS: LIVER: Timely and homogenous uptake. COMMON BILE DUCT: identified at 25 mins. GALLBLADDER: identified at 20 mins. SMALL BOWEL: Identified at 46 mins. IMPRESSION: Normal Hepatobiliary Scan. The cystic duct is patent.
--- NOTE | 2018-03-25 12:57 | RAD ---
HISTORY: decreased SaO2 COMPARISON: No prior study available for comparison TECHNIQUE: Chest PA and lateral FINDINGS: LUNGS: .No acute consolidation. PLEURA: No significant pleural effusion identified. No pneumothorax apparent. CARDIOVASCULAR: Cardiomegaly. OSSEOUS STRUCTURES: No significant abnormalities. VISUALIZED UPPER ABDOMEN: Normal. OTHER FINDINGS: None. IMPRESSION: No active disease.
--- NOTE | 2018-03-25 15:29 | US ---
HISTORY: new diagnosed hyperthyroidism TECHNIQUE: Sonographic evaluation of the thyroid gland. COMPARISON: FINDINGS: RIGHT LOBE: Measures 5.2 x 2.6 x 2.0 cm. Heterogeneous echotexture echotexture but normal flow. Nodules: None LEFT LOBE: Measures 4.9 x 1.9 x 2.2 cm. Heterogeneous echotexture echotexture but normal flow. Nodules: None ISTHMUS: Measures 5.7 cm. Heterogeneous echotexture echotexture but normal flow. Nodules: None OTHER FINDINGS: None . IMPRESSION: Mildly enlarged right lobe and isthmus are identified with the left lobe upper limits normal size. Overall parenchymal appearance is heterogeneous in echotexture without focal mass or cyst is defined.
[2018-03-25] MEDS ORDERED: Etomidate 20 mg/10ml Inj IV ONE (16:23)
[2018-03-25] MEDS ORDERED: Acetaminophen 650mg/20.3ml solution UD PO PRN (16:25)
[2018-03-25 16:47] LABS: BASO % 0.4 % (0.0-2.0); EOS % 0.4 % (0.0-4.0); HEMOGLOBIN 13.2 g/dL (11.0-16.0); INR 3.1; LYMPH # 0.4 K/uL (1.0-4.3); LYMPH % 6.1 % (20.0-40.0); MEAN CELL VOLUME 96.2 fL (81.0-99.0); MEAN CORPUSCULAR HEMOGLOBIN 31.7 pg (27.0-31.0); MEAN PLATELET VOLUME 9.4 fL (7.2-11.7); MONO # 0.8 K/uL (0.0-0.8); MONO % 11.1 % (0.0-10.0); NEUT # 5.8 K/uL (1.8-7.0); NRBC % 0.2 % (0.0-2.0); PLATELET COUNT 84 K/uL (130-400); RBC 4.16 Mil/uL (3.80-5.20); RED CELL DISTRIBUTION WIDTH 14.7 % (11.5-14.5)
--- NOTE | 2018-03-25 16:48 | RAD ---
HISTORY: post intubation COMPARISON: Portable chest 03/25/2018. FINDINGS: Endotracheal tube is identified placed terminating 2.5 cm above the kaila. LUNGS: No active pulmonary disease. PLEURA: No significant pleural effusion identified, no pneumothorax apparent. CARDIOVASCULAR: Stable cardiomegaly. No pulmonary vascular congestion. OSSEOUS STRUCTURES: No significant abnormalities. VISUALIZED UPPER ABDOMEN: Normal. OTHER FINDINGS: None. IMPRESSION: Stable cardiomegaly. No interval pulmonary vascular congestion, infiltrate, pneumothorax or pleural effusion identified. ET tube in good apparent position.
[2018-03-25 16:49] LABS: SQUAMOUS EPITHIAL 8 /hpf (0-5); URINE BACTERIA FEW (<OCC); URINE BILIRUBIN NEGATIVE (NEGATIVE); URINE BLOOD 1+ (NEGATIVE); URINE CLARITY Hazy (Clear); URINE COLOR Amber (YELLOW); URINE GLUCOSE (UA) NORMAL (Normal); URINE LEUKOCYTE ESTERASE TRACE Leu/uL (Negative); URINE PROTEIN 1+ mg/dL (NEGATIVE); URINE UROBILINOGEN NORMAL mg/dL (0.2-1.0)
[2018-03-25 16:53] LABS: ARTERIAL BLOOD GAS HCO3 17.2 mmol/L (21-28); ARTERIAL BLOOD GAS HEMOGLOBIN 12.7 g/dL (11.7-17.4); ARTERIAL BLOOD GAS O2 SAT 100.5 % (95-98); ARTERIAL BLOOD GAS PCO2 31 mm/Hg (35-45); ARTERIAL BLOOD GAS PO2 500 mm/Hg (80-100); ARTERIAL BLOOD GAS TCO2 16.3 mmol/L (22-28)
[2018-03-25 16:53] LABS: PROTHROMBIN TIME 34.1 SECONDS (9.7-12.2)
--- NOTE | 2018-03-25 16:57 | CARD ---
APPROVED REPORT EXAM: Two-dimensional and M-mode echocardiogram with Doppler and color Doppler. Other Information Quality : Good[employer] : INDICATION Dyspnea Tachycardia 2D DIMENSIONS IVSd0.6 (0.7-1.1cm)LVDd5.5 (3.9-5.9cm) PWd0.7 (0.7-1.1cm)LVDs5.0 (2.5-4.0cm) FS (%) 9.5 %LVEF (%)20.6 (>50%) M-Mode DIMENSIONS Left Atrium (MM)4.34 (2.5-4.0cm)Aortic Root2.44 (2.2-3.7cm) Aortic Cusp Exc.1.93 (1.5-2.0cm) Aortic Valve AI P 1/2 [id number] Mitral Valve MV E Khqiknsk13.6cm/sMV A Dsjdepbc23.3cm/sE/A ratio1.5 TDI E/Lateral E'0.0E/Medial E'0.0 Tricuspid Valve TR Peak [id number]/sTR Peak [id number] LEFT VENTRICLE The Left Ventricle is mildly dilated. There is normal left ventricular wall thickness. The systolic function is severely impaired. There is global hypokinesis of the left ventricle. Transmitral Doppler flow pattern is abnormal. No left ventricle thrombus noted on this study. RIGHT VENTRICLE The right ventricle is normal size. There is normal right ventricular wall thickness. Systolic function is mildly reduced. ATRIA The left atrium is mildly dilated. The right atrium is mildly dilated. AORTIC VALVE The aortic valve is mildly thickened. There is mild aortic regurgitation. MITRAL VALVE The mitral valve is mildly thickened. There is no mitral valve stenosis. Mitral regurgitation is mild to moderate. TRICUSPID VALVE There is moderate tricuspid regurgitation. GREAT VESSELS The aortic root is normal in size. The IVC collapses <50% with inspiration. PERICARDIAL EFFUSION There is no pericardial effusion. <Conclusion> The Left Ventricle is mildly dilated. There is normal left ventricular wall thickness. The systolic function is severely impaired. There is global hypokinesis of the left ventricle. No left ventricle thrombus noted on this study. There is mild aortic regurgitation. Mitral regurgitation is mild to moderate. There is moderate tricuspid regurgitation.
[2018-03-25 17:04] LABS: ALB/GLOB RATIO 0.9 (1.0-2.1); ALBUMIN 3.1 g/dL (3.5-5.0); ALT/SGPT 84 U/L (9-52); AST/SGOT 278 U/L (14-36); BLOOD UREA NITROGEN 32 mg/dL (7-17); CALCIUM 8.4 mg/dl (8.6-10.4); GFR AFRICAN-AMERICAN 59; GFR NON-AFRICAN AMERICAN 49
[2018-03-25] MEDS ORDERED: Dextrose 50% SYRINGE Inj (50 ml) IV STA ×2 (17:07→17:08)
[2018-03-25] MEDS ORDERED: Dextrose 50% SYRINGE Inj (50 ml) ONE (17:07)
[2018-03-25] MEDS ORDERED: Sodium Chloride 0.9% 250 ML IV ONE (17:19)
[2018-03-25] MEDS: Acetaminophen 650mg/20.3ml solution UD PO PRN (17:23)
[2018-03-25 17:25] LABS: BANDS 2 % (0-2); LYMPHOCYTE 5 % (20-40); MONOCYTE 8 % (0-10); NEUTROPHIL 85 % (50-75); TOTAL CELLS COUNTED 100
[2018-03-25 17:26] LABS: PLATELET ESTIMATE DECREASED (NORMAL)
[2018-03-25 17:47] LABS: ARTERIAL BLOOD GAS HEMOGLOBIN 12.4 g/dL (11.7-17.4); ARTERIAL BLOOD GAS O2 SAT 82.5 % (95-98); ARTERIAL BLOOD GAS PCO2 32 mm/Hg (35-45); ARTERIAL BLOOD GAS PH 7.22 (7.35-7.45); ARTERIAL BLOOD GAS PO2 49 mm/Hg (80-100); ARTERIAL BLOOD GAS TCO2 14.1 mmol/L (22-28)
[2018-03-25] MEDS ORDERED: Sodium Bicarbonate (8.4%) 50 Meq Syringe IVP ONE ×2 (17:49→17:50)
[2018-03-25] MEDS ORDERED: Sodium Chloride 0.9% 500 ML IV ONE (17:59)
[2018-03-25] MEDS ORDERED: Propranolol 1 mg/mL Inj IVP ONE (18:02)
--- NOTE | 2018-03-25 18:27 | CP.PCM.CON ---
<Blanca Carmen - Last Filed: 03/25/18 20:32> History of Present Illness - History of Present Illness History of Present Illness: 72 year old female with past medical history of recently diagnosed hyperthyroidism 2 weeks ago presented to hospital for intractable diarrhea, N/V and fall. Patient's daughter is at bedside and helps with history. Since yesterday, patient complained of subjective fevers and chills. Yesterday evening patient developed diarrhea with loose watery stools and N/V. She had about 3 episodes of NB/NB vomiting. patient denies having any hematochezia or hemetemesis. Later in the evening, patient was trying to get out of bed when she felt very dizzy and she fell. Denies hitting her or any LOC. Patient was then brought to ED. Patient was diagnosed with hyperthyroidism 2 weeks ago at which point she was started on methimazole and metoprolol. Due to feeling tired and fatigued, her BB was switched to propanolol earlier yesterday by her group marketing vp and her methimazole was increased as well from tid to QID. ICU team consulted on this patient for Respiratory distress post HIDA scan. Patient was intubated emergently and started on Norepinephrine and BiCarb Drip. Patient currently being treated for thyroid storm with Hydrocortisone and Methimazole ROS: Intubated. History from Chart. PMHx: stated above Sx: denies Social: current smoker 40-50 years, denies ETOH or drug use Meds: methimazole 10 mg BID and Propanolol 20 mg PO BID PMD: Tamra Marie Endo: Dr. Jess Veloz Cardio: Dr. Wilhelm Review of Systems - Review of Systems Systems not reviewed;Unavailable: Intubated All systems: reviewed and no additional remarkable complaints except (As per HPI ) Past Patient History - Past Social History Smoking Status: Light Smoker < 10 Cigarettes Daily - CARDIAC Hx Cardia Arrhythmia: Yes - PULMONARY Hx Respiratory Disorders: No - NEUROLOGICAL Hx Neurological Disorder: No - HEENT Hx HEENT Problems: No - RENAL Hx Chronic Kidney Disease: No - ENDOCRINE/METABOLIC Hx Hyperthyroidism: Yes (DX March) - HEMATOLOGICAL/ONCOLOGICAL Hx Blood Disorders: No - INTEGUMENTARY Hx Dermatological Problems: No - MUSCULOSKELETAL/RHEUMATOLOGICAL Hx Falls: Yes (felt dizzy at home and fell) - GASTROINTESTINAL Hx Diarrhea: Yes Hx Nausea: Yes - GENITOURINARY/GYNECOLOGICAL Hx Genitourinary Disorders: No - PSYCHIATRIC Hx Psychophysiologic Disorder: No Hx Substance Use: No - SURGICAL HISTORY Hx Surgeries: No - ANESTHESIA Hx Anesthesia: Yes Hx Anesthesia Reactions: No Hx Malignant Hyperthermia: No Has any member of the family had a problem w/ anesthesia?: No Meds Allergies/Adverse Reactions: Allergies Allergy/AdvReac Type Severity Reaction Status Date / Time No Known Allergies Allergy Unverified 03/24/18 20:31 - Medications Medications: Current Medications Acetaminophen (Tylenol 650mg/20.3ml Solution Ud) 650 mg PO Q4H PRN PRN Reason: Temperature above 100.6 Last Admin: 03/25/18 17:23 Dose: 650 mg Enoxaparin Sodium (Lovenox) 40 mg SC DAILY [facility] Last Admin: 03/25/18 12:33 Dose: 40 mg Famotidine (Pepcid) 20 mg PO BID [facility] Last Admin: 03/25/18 12:33 Dose: Not Given Piperacillin Sod/Tazobactam Sod (Zosyn 3.375 Gm Iv Premix) 3.375 gm in 50 mls @ 100 mls/hr IVPB Q8H [facility] PRN Reason: Protocol Sodium Bicarbonate 100 meq/ (Sodium Chloride) 1,100 mls @ 75 mls/hr IV .[id number] [facility] Last Admin: 03/25/18 18:14 Dose: 75 mls/hr Norepinephrine Bitartrate 4 mg (/ Dextrose) 254 mls @ 15.24 mls/hr IV .[id number] PRN; Protocol; 4 MCG/MIN PRN Reason: TITRATE PER MD ORDER Last Admin: 03/25/18 18:15 Dose: 4 mcg/min, 15.24 mls/hr Sodium Chloride (Sodium Chloride 0.9%) 500 mls @ 1,000 mls/hr IV .Q30M ONE Stop: 03/25/18 18:28 Last Admin: 03/25/18 18:18 Dose: 1,000 mls/hr Methimazole (Tapazole) 10 mg PO TID [facility] Propranolol HCl (Inderal) 10 mg PO DAILY [facility] Propranolol HCl (Propranolol Inj) 5 mg IVP ONCE ONE Stop: 03/25/18 18:03 Physical Exam - Additional Findings Additional findings: - Constitutional Appears: No Acute Distress - Head Exam Head Exam: NORMAL INSPECTION, NORMOCEPHALIC - Eye Exam Eye Exam: EOMI, Normal appearance (no exolpthamous noted ), PERRL Pupil Exam: NORMAL ACCOMODATION - ENT Exam ENT Exam: Mucous Membranes Dry, Normal Oropharynx - Neck Exam Neck Exam: absent: Thyromegaly (no nodules palpated ) - Respiratory Exam Respiratory Exam: Clear to Ausculation Bilateral, NORMAL BREATHING PATTERN - Cardiovascular Exam Cardiovascular Exam: Tachycardia - GI/Abdominal Exam GI & Abdominal Exam: Soft, Normal Bowel Sounds. - Extremities Exam Extremities Exam: Normal Inspection. absent: Pedal Edema, Tenderness - Neurological Exam Neurological Exam: Intubated. - Psychiatric Exam Psychiatric exam: Normal Affect, Normal Mood - Skin Skin Exam: Dry, Intact, Normal Color, Warm Results - Vital Signs Recent Vital Signs: Last Vital Signs Temp 104.1 F H 03/25/18 16:00 Pulse 104 H 03/25/18 17:30 Resp 28 H 03/25/18 17:30 BP 80/35 L 03/25/18 18:15 Pulse Ox 98 03/25/18 17:30 - Labs Result Diagrams: 03/25/18 16:34 03/25/18 16:39 Labs: Laboratory Results - last 24 hr 03/24/18 03/24/18 03/24/18 20:59 20:59 21:06 WBC 6.5 RBC 4.21 Hgb 13.6 Hct 39.7 MCV 94.3 MCH 32.4 H MCHC 34.3 RDW 14.3 Plt Count 114 L MPV 9.0 Neut % (Auto) 76.8 H Lymph % (Auto) 12.0 L [place] % (Auto) 9.9 Eos % (Auto) 0.6 Baso % (Auto) 0.7 Neut # (Auto) 5.0 Lymph # (Auto) 0.8 L [place] # (Auto) 0.6 Eos # (Auto) 0.0 Baso # (Auto) 0.0 Neutrophils % (Manual) Band Neutrophils % Lymphocytes % (Manual) Monocytes % (Manual) Differential Comment Platelet Estimate RBC Morphology PT INR Puncture Site pCO2 pO2 HCO3 ABG pH ABG Total CO2 ABG O2 Saturation ABG Base Excess ABG Hemoglobin ABG Carboxyhemoglobin POC ABG HHb (Measured) ABG Methemoglobin Jake Test A-a O2 Difference Respiratory Index Hgb O2 Saturation Vent Mode Mechanical Rate FiO2 Tidal Volume PEEP Sodium 134 Potassium 4.8 Chloride 97 L Carbon Dioxide 21 L Anion Gap 21 H BUN 17 Creatinine 0.6 L Est GFR ( Amer) > 60 Est GFR (Non-Af Amer) > 60 Random Glucose 91 Lactic Acid 2.4 H Calcium 8.5 L Total Bilirubin 3.5 H AST 39 H ALT 23 Alkaline Phosphatase 103 Total Creatine Kinase Total Protein 7.0 Albumin 3.5 Globulin 3.5 Albumin/Globulin Ratio 1.0 Lipase 125 Thyroxine (T4) TSH 3rd Generation Urine Color Urine Clarity Urine pH Ur Specific [place] Urine Protein Urine Glucose (UA) Urine Ketones Urine Blood Urine Nitrate Urine Bilirubin Urine Urobilinogen Ur Leukocyte Esterase Urine WBC (Auto) Urine RBC (Auto) Ur Squamous Epith Cells Urine Bacteria 03/25/18 03/25/18 03/25/18 05:57 05:57 16:34 WBC 4.1 L 7.0 D RBC 3.74 L 4.16 Hgb 12.0 13.2 Hct 35.3 40.0 MCV 94.4 96.2 MCH 32.1 H 31.7 H MCHC 34.0 33.0 RDW 13.9 14.7 H Plt Count 88 L D 84 L MPV 8.6 9.4 Neut % (Auto) 82.0 H Lymph % (Auto) 13.3 L 6.1 L [place] % (Auto) 8.3 11.1 H Eos % (Auto) 1.6 0.4 Baso % (Auto) 0.4 0.4 Neut # (Auto) 5.8 Lymph # (Auto) 0.5 L 0.4 L [place] # (Auto) 0.3 0.8 Eos # (Auto) 0.1 0.0 Baso # (Auto) 0.0 0.0 Neutrophils % (Manual) 85 H Band Neutrophils % 2 Lymphocytes % (Manual) 5 L Monocytes % (Manual) 8 Differential Comment Platelet Estimate Decreased L RBC Morphology Normal PT INR Puncture Site pCO2 pO2 HCO3 ABG pH ABG Total CO2 ABG O2 Saturation ABG Base Excess ABG Hemoglobin ABG Carboxyhemoglobin POC ABG HHb (Measured) ABG Methemoglobin Jake Test A-a O2 Difference Respiratory Index Hgb O2 Saturation Vent Mode Mechanical Rate FiO2 Tidal Volume PEEP Sodium Potassium Chloride Carbon Dioxide Anion Gap BUN Creatinine Est GFR ( Amer) Est GFR (Non-Af Amer) Random Glucose Lactic Acid Calcium Total Bilirubin AST ALT Alkaline Phosphatase Total Creatine Kinase Total Protein Albumin Globulin Albumin/Globulin Ratio Lipase Thyroxine (T4) 13.8 H TSH 3rd Generation < 0.02 L Urine Color Urine Clarity Urine pH Ur Specific [place] Urine Protein Urine Glucose (UA) Urine Ketones Urine Blood Urine Nitrate Urine Bilirubin Urine Urobilinogen Ur Leukocyte Esterase Urine WBC (Auto) Urine RBC (Auto) Ur Squamous Epith Cells Urine Bacteria 03/25/18 03/25/18 03/25/18 16:34 16:34 16:34 WBC RBC Hgb Hct MCV MCH MCHC RDW Plt Count MPV Neut % (Auto) Lymph % (Auto) [place] % (Auto) Eos % (Auto) Baso % (Auto) Neut # (Auto) Lymph # (Auto) [place] # (Auto) Eos # (Auto) Baso # (Auto) Neutrophils % (Manual) Band Neutrophils % Lymphocytes % (Manual) Monocytes % (Manual) Differential Comment Platelet Estimate RBC Morphology PT 34.1 H* INR 3.1 Puncture Site pCO2 pO2 HCO3 ABG pH ABG Total CO2 ABG O2 Saturation ABG Base Excess ABG Hemoglobin ABG Carboxyhemoglobin POC ABG HHb (Measured) ABG Methemoglobin Jake Test A-a O2 Difference Respiratory Index Hgb O2 Saturation Vent Mode Mechanical Rate FiO2 Tidal Volume PEEP Sodium Potassium Chloride Carbon Dioxide Anion Gap BUN Creatinine Est GFR ( Amer) Est GFR (Non-Af Amer) Random Glucose Lactic Acid 5.1 H* Calcium Total Bilirubin AST ALT Alkaline Phosphatase Total Creatine Kinase Total Protein Albumin Globulin Albumin/Globulin Ratio Lipase Thyroxine (T4) TSH 3rd Generation Urine Color Martha Urine Clarity Hazy Urine pH 5.0 Ur Specific [place] 1.057 H Urine Protein 1+ H Urine Glucose (UA) Normal Urine Ketones Negative Urine Blood 1+ H Urine Nitrate Negative Urine Bilirubin Negative Urine Urobilinogen Normal Ur Leukocyte Esterase Trace Urine WBC (Auto) 13 H Urine RBC (Auto) 14 H Ur Squamous Epith Cells 8 H Urine Bacteria Few H 03/25/18 03/25/18 03/25/18 16:39 16:50 17:44 WBC RBC Hgb Hct MCV MCH MCHC RDW Plt Count MPV Neut % (Auto) Lymph % (Auto) [place] % (Auto) Eos % (Auto) Baso % (Auto) Neut # (Auto) Lymph # (Auto) [place] # (Auto) Eos # (Auto) Baso # (Auto) Neutrophils % (Manual) Band Neutrophils % Lymphocytes % (Manual) Monocytes % (Manual) Differential Comment Platelet Estimate RBC Morphology PT INR Puncture Site Lb Line pCO2 31 L 32 L pO2 500 H 49 L HCO3 17.2 L 14.0 L ABG pH 7.30 L 7.22 L ABG Total CO2 16.3 L 14.1 L ABG O2 Saturation 100.5 H 82.5 L ABG Base Excess -9.9 L -13.5 L ABG Hemoglobin 12.7 12.4 ABG Carboxyhemoglobin 1.7 H 2.1 H POC ABG HHb (Measured) -0.5 L 17.0 H ABG Methemoglobin 1.2 0.8 Jake Test Na Na A-a O2 Difference 174.0 196.0 Respiratory Index 0.3 4.0 Hgb O2 Saturation 97.5 80.1 L Vent Mode Prvc Prvc Mechanical Rate 14 18 FiO2 100.0 40.0 Tidal Volume 400 400 PEEP 5 5 Sodium 135 Potassium 4.9 Chloride 101 Carbon Dioxide 17 L Anion Gap 21 H BUN 32 H Creatinine 1.1 Est GFR ( Amer) 59 Est GFR (Non-Af Amer) 49 Random Glucose < 20 L* D Lactic Acid Calcium 8.4 L Total Bilirubin 4.4 H AST 278 H D ALT 84 H D Alkaline Phosphatase 89 Total Creatine Kinase Total Protein 6.4 Albumin 3.1 L Globulin 3.3 Albumin/Globulin Ratio 0.9 L Lipase Thyroxine (T4) TSH 3rd Generation Urine Color Urine Clarity Urine pH Ur Specific [place] Urine Protein Urine Glucose (UA) Urine Ketones Urine Blood Urine Nitrate Urine Bilirubin Urine Urobilinogen Ur Leukocyte Esterase Urine WBC (Auto) Urine RBC (Auto) Ur Squamous Epith Cells Urine Bacteria 03/25/18 18:07 WBC RBC Hgb Hct MCV MCH MCHC RDW Plt Count MPV Neut % (Auto) Lymph % (Auto) [place] % (Auto) Eos % (Auto) Baso % (Auto) Neut # (Auto) Lymph # (Auto) [place] # (Auto) Eos # (Auto) Baso # (Auto) Neutrophils % (Manual) Band Neutrophils % Lymphocytes % (Manual) Monocytes % (Manual) Differential Comment Platelet Estimate RBC Morphology PT INR Puncture Site pCO2 pO2 HCO3 ABG pH ABG Total CO2 ABG O2 Saturation ABG Base Excess ABG Hemoglobin ABG Carboxyhemoglobin POC ABG HHb (Measured) ABG Methemoglobin Jake Test A-a O2 Difference Respiratory Index Hgb O2 Saturation Vent Mode Mechanical Rate FiO2 Tidal Volume PEEP Sodium Potassium Chloride Carbon Dioxide Anion Gap BUN Creatinine Est GFR ( Amer) Est GFR (Non-Af Amer) Random Glucose Lactic Acid Calcium Total Bilirubin AST ALT Alkaline Phosphatase Total Creatine Kinase 854 H Total Protein Albumin Globulin Albumin/Globulin Ratio Lipase Thyroxine (T4) TSH 3rd Generation Urine Color Urine Clarity Urine pH Ur Specific [place] Urine Protein Urine Glucose (UA) Urine Ketones Urine Blood Urine Nitrate Urine Bilirubin Urine Urobilinogen Ur Leukocyte Esterase Urine WBC (Auto) Urine RBC (Auto) Ur Squamous Epith Cells Urine Bacteria Assessment & Plan - Assessment and Plan (Free Text) Assessment: 72 year old female with past medical history of recently diagnosed hyperthyroidism is admitted for intractable diarrhea, N/V likely 2/2 gastroenteritis vs. cholecystitis vs. hyperthyroidism. Abdominal US on admission showed cholelithiasis with gallbladder wall thickening and small amount of pericholecystic fluid which could represent acute cholecystitis. HIDA - negative, cystic duct patent. Patient admitted to ICU for respiratory distress likely 2/2 to thyroid storm. Patient intubated in the ICU and started on Levophed and Bicarb drip. Treatment for thyroid storm began with Methimazole. Plan: Neuro: GCS: 7T Sedation: None Cardio A: tachycardia 2/2 to thyroid storm, Hypotension Cont. Propanolol Cont. Levophed Drip Cardiology on Consult. Pulm: Intubated PRVC 18RR, 40% Fi02, 400 TV, and 5 PEEP AB.22/32/49/14 Renal A: Metabolic Acidosis, Hypocalcemia, MICHELLE (Cr. from 0.6-1.1) Cont. Sodium Bicarb Drip GI A: Elevated LFTs, Likely Shock liver. Diarrhea Monitor Pepcid BID Liquid Diet. C Diff Ordered Fecal Leukocytes ORdered Endo: A: Hyperthyroidism, Thyroid Storm. TSH= <0.02, T4 - 12.9 Tapazole 10mg TID Propanolol 10mg Daily Thyroid US: no nodules, cysts, or masses noted F/U Autoimmune Workup Endocrinology Consulted. Heme/Onc A: Thrombycytopenia Monitor plaletes and stop Lovenox if it continues to downtrend Monitor H&H and signs of bleeding. Consider HIT panel. ID: A: Febrile likely 2/2 to thyroid storm NO Leukocytosis Zosyn for Empiric Coverage. PRN Tylenol F/U Pancultures ProCal Ordered Proph Lovenox and Pepcid Patient seen and discussed with ATtending Blanca Carmen, PGY- 1 <Jose Duran - Last Filed: 03/26/18 16:44> Meds - Medications Medications: Current Medications Acetaminophen (Tylenol 650mg/20.3ml Solution Ud) 650 mg PO Q4H PRN PRN Reason: Temperature above 100.6 Last Admin: 03/25/18 17:23 Dose: 650 mg Cholestyramine Resin (Prevalite) 4 gm PO Q8H [facility] Last Admin: 03/26/18 09:00 Dose: 4 gm Enoxaparin Sodium (Lovenox) 30 mg SC DAILY [facility] Famotidine (Pepcid) 20 mg PO BID [facility] Last Admin: 03/26/18 09:12 Dose: 20 mg Hydrocortisone Sodium Succinate (Solu-Cortef) 100 mg IV Q8H [facility] Last Admin: 03/26/18 09:13 Dose: 100 mg Piperacillin Sod/Tazobactam Sod (Zosyn 3.375 Gm Iv Premix) 3.375 gm in 50 mls @ 100 mls/hr IVPB Q8H [facility] PRN Reason: Protocol Last Admin: 03/26/18 09:30 Dose: 100 mls/hr Norepinephrine Bitartrate 4 mg (/ Dextrose) 254 mls @ 15.24 mls/hr IV .[id number] PRN; Protocol; 4 MCG/MIN PRN Reason: TITRATE PER MD ORDER Last Admin: 03/26/18 15:46 Dose: 9.84 mcg/min, 37.5 mls/hr Vasopressin 40 units/ Sodium (Chloride) 42 mls @ 0.63 mls/hr IV .Q24H [facility]; 0.01 UNITS/MIN PRN Reason: Protocol Last Admin: 03/26/18 13:50 Dose: 0.03 units/min, 2.4 mls/hr Dextrose (Dextrose 10% In Water) 500 mls @ 50 mls/hr IV .Q10H [facility] Last Admin: 03/26/18 05:27 Dose: 50 mls/hr Sodium Bicarbonate 150 meq/ (Dextrose) 1,000 mls @ 150 mls/hr IV .Q6H40M [facility] Propranolol HCl (Inderal) 10 mg PO DAILY [facility] Last Admin: 03/26/18 09:12 Dose: 10 mg Propylthiouracil (Propylthiouracil) 100 mg PO Q6 [facility] Last Admin: 03/26/18 13:40 Dose: 100 mg Results - Vital Signs Recent Vital Signs: Last Vital Signs Temp 98.9 F 03/26/18 12:00 Pulse 82 03/26/18 15:10 Resp 23 03/26/18 15:10 BP 99/39 L 03/26/18 15:46 Pulse Ox 98 03/26/18 15:10 - Labs Result Diagrams: 03/26/18 06:13 03/26/18 06:14 Labs: Laboratory Results - last 24 hr 03/25/18 03/25/18 03/25/18 08:15 16:34 16:34 WBC 7.0 D RBC 4.16 Hgb 13.2 Hct 40.0 MCV 96.2 MCH 31.7 H MCHC 33.0 RDW 14.7 H Plt Count 84 L MPV 9.4 Neut % (Auto) 82.0 H Lymph % (Auto) 6.1 L [place] % (Auto) 11.1 H Eos % (Auto) 0.4 Baso % (Auto) 0.4 Neut # (Auto) 5.8 Lymph # (Auto) 0.4 L [place] # (Auto) 0.8 Eos # (Auto) 0.0 Baso # (Auto) 0.0 Neutrophils % (Manual) 85 H Band Neutrophils % 2 Lymphocytes % (Manual) 5 L Monocytes % (Manual) 8 Toxic Granulation Platelet Estimate Decreased L Large Platelets RBC Morphology Normal Poikilocytosis (manual Ovalocytes Jeff Cells PT 34.1 H* INR 3.1 Puncture Site pCO2 pO2 HCO3 ABG pH ABG Total CO2 ABG O2 Saturation ABG Base Excess ABG Hemoglobin ABG Carboxyhemoglobin POC ABG HHb (Measured) ABG Methemoglobin Jake Test ABG Potassium A-a O2 Difference Respiratory Index Hgb O2 Saturation Glucose Lactate Vent Mode Mechanical Rate FiO2 Tidal Volume PEEP Crit Value Called To Crit Value Called By Crit Value Read Back Blood Gas Notified Time Sodium Potassium Chloride Carbon Dioxide Anion Gap BUN Creatinine Est GFR ( Amer) Est GFR (Non-Af Amer) POC Glucose (mg/dL) Random Glucose Lactic Acid Calcium Phosphorus Magnesium Total Bilirubin AST ALT Alkaline Phosphatase Total Creatine Kinase CK-MB (Mass) Troponin I Total Protein Albumin Globulin Albumin/Globulin Ratio Procalcitonin Free T4 Thyroxine (T4) Free T3 pg/mL Total T3 TSH 3rd Generation Cortisol AM Sample Arterial Blood Potassium Urine Color Urine Clarity Urine pH Ur Specific [place] Urine Protein Urine Glucose (UA) Urine Ketones Urine Blood Urine Nitrate Urine Bilirubin Urine Urobilinogen Ur Leukocyte Esterase Urine WBC (Auto) Urine RBC (Auto) Ur Squamous Epith Cells Urine Bacteria Stool Occult Blood C. difficile Ag & Toxin Negative 03/25/18 03/25/18 03/25/18 16:34 16:34 16:39 WBC RBC Hgb Hct MCV MCH MCHC RDW Plt Count MPV Neut % (Auto) Lymph % (Auto) [place] % (Auto) Eos % (Auto) Baso % (Auto) Neut # (Auto) Lymph # (Auto) [place] # (Auto) Eos # (Auto) Baso # (Auto) Neutrophils % (Manual) Band Neutrophils % Lymphocytes % (Manual) Monocytes % (Manual) Toxic Granulation Platelet Estimate Large Platelets RBC Morphology Poikilocytosis (manual Ovalocytes [place] Cells PT INR Puncture Site pCO2 pO2 HCO3 ABG pH ABG Total CO2 ABG O2 Saturation ABG Base Excess ABG Hemoglobin ABG Carboxyhemoglobin POC ABG HHb (Measured) ABG Methemoglobin Jake Test ABG Potassium A-a O2 Difference Respiratory Index Hgb O2 Saturation Glucose Lactate Vent Mode Mechanical Rate FiO2 Tidal Volume PEEP Crit Value Called To Crit Value Called By Crit Value Read Back Blood Gas Notified Time Sodium 135 Potassium 4.9 Chloride 101 Carbon Dioxide 17 L Anion Gap 21 H BUN 32 H Creatinine 1.1 Est GFR ( Amer) 59 Est GFR (Non-Af Amer) 49 POC Glucose (mg/dL) Random Glucose < 20 L* D Lactic Acid 5.1 H* Calcium 8.4 L Phosphorus Magnesium Total Bilirubin 4.4 H AST 278 H D ALT 84 H D Alkaline Phosphatase 89 Total Creatine Kinase CK-MB (Mass) Troponin I Total Protein 6.4 Albumin 3.1 L Globulin 3.3 Albumin/Globulin Ratio 0.9 L Procalcitonin Free T4 Thyroxine (T4) Free T3 pg/mL Total T3 TSH 3rd Generation Cortisol AM Sample Arterial Blood Potassium Urine Color Martha Urine Clarity Hazy Urine pH 5.0 Ur Specific [place] 1.057 H Urine Protein 1+ H Urine Glucose (UA) Normal Urine Ketones Negative Urine Blood 1+ H Urine Nitrate Negative Urine Bilirubin Negative Urine Urobilinogen Normal Ur Leukocyte Esterase Trace Urine WBC (Auto) 13 H Urine RBC (Auto) 14 H Ur Squamous Epith Cells 8 H Urine Bacteria Few H Stool Occult Blood C. difficile Ag & Toxin 03/25/18 03/25/18 03/25/18 16:50 17:44 18:07 WBC RBC Hgb Hct MCV MCH MCHC RDW Plt Count MPV Neut % (Auto) Lymph % (Auto) [place] % (Auto) Eos % (Auto) Baso % (Auto) Neut # (Auto) Lymph # (Auto) [place] # (Auto) Eos # (Auto) Baso # (Auto) Neutrophils % (Manual) Band Neutrophils % Lymphocytes % (Manual) Monocytes % (Manual) Toxic Granulation Platelet Estimate Large Platelets RBC Morphology Poikilocytosis (manual Ovalocytes [place] Cells PT INR Puncture Site Lb Line pCO2 31 L 32 L pO2 500 H 49 L HCO3 17.2 L 14.0 L ABG pH 7.30 L 7.22 L ABG Total CO2 16.3 L 14.1 L ABG O2 Saturation 100.5 H 82.5 L ABG Base Excess -9.9 L -13.5 L ABG Hemoglobin 12.7 12.4 ABG Carboxyhemoglobin 1.7 H 2.1 H POC ABG HHb (Measured) -0.5 L 17.0 H ABG Methemoglobin 1.2 0.8 Jake Test Na Na ABG Potassium A-a O2 Difference 174.0 196.0 Respiratory Index 0.3 4.0 Hgb O2 Saturation 97.5 80.1 L Glucose Lactate Vent Mode Prvc Prvc Mechanical Rate 14 18 FiO2 100.0 40.0 Tidal Volume 400 400 PEEP 5 5 Crit Value Called To Crit Value Called By Crit Value Read Back Blood Gas Notified Time Sodium Potassium Chloride Carbon Dioxide Anion Gap BUN Creatinine Est GFR ( Amer) Est GFR (Non-Af Amer) POC Glucose (mg/dL) Random Glucose Lactic Acid Calcium Phosphorus Magnesium Total Bilirubin AST ALT Alkaline Phosphatase Total Creatine Kinase 854 H CK-MB (Mass) 5.47 H Troponin I 0.1050 Total Protein Albumin Globulin Albumin/Globulin Ratio Procalcitonin Free T4 Thyroxine (T4) 12.9 H Free T3 pg/mL Total T3 TSH 3rd Generation Cortisol AM Sample Arterial Blood Potassium Urine Color Urine Clarity Urine pH Ur Specific [place] Urine Protein Urine Glucose (UA) Urine Ketones Urine Blood Urine Nitrate Urine Bilirubin Urine Urobilinogen Ur Leukocyte Esterase Urine WBC (Auto) Urine RBC (Auto) Ur Squamous Epith Cells Urine Bacteria Stool Occult Blood C. difficile Ag & Toxin 03/25/18 03/25/18 03/25/18 20:40 20:42 20:42 WBC 8.8 RBC 4.13 Hgb 13.3 Hct 40.0 MCV 97.0 MCH 32.1 H MCHC 33.1 RDW 14.8 H Plt Count 67 L MPV 9.3 Neut % (Auto) 86.3 H Lymph % (Auto) 5.5 L [place] % (Auto) 6.8 Eos % (Auto) 0.7 Baso % (Auto) 0.7 Neut # (Auto) 7.6 H Lymph # (Auto) 0.5 L [place] # (Auto) 0.6 Eos # (Auto) 0.1 Baso # (Auto) 0.1 Neutrophils % (Manual) 92 H Band Neutrophils % 2 Lymphocytes % (Manual) 3 L Monocytes % (Manual) 3 Toxic Granulation Platelet Estimate Decreased L Large Platelets RBC Morphology Normal Poikilocytosis (manual Ovalocytes [place] Cells PT INR Puncture Site pCO2 pO2 HCO3 ABG pH ABG Total CO2 ABG O2 Saturation ABG Base Excess ABG Hemoglobin ABG Carboxyhemoglobin POC ABG HHb (Measured) ABG Methemoglobin Jake Test ABG Potassium A-a O2 Difference Respiratory Index Hgb O2 Saturation Glucose Lactate Vent Mode Mechanical Rate FiO2 Tidal Volume PEEP Crit Value Called To Crit Value Called By Crit Value Read Back Blood Gas Notified Time Sodium Potassium Chloride Carbon Dioxide Anion Gap BUN Creatinine Est GFR ( Amer) Est GFR (Non-Af Amer) POC Glucose (mg/dL) 136 H Random Glucose Lactic Acid Calcium Phosphorus Magnesium Total Bilirubin AST ALT Alkaline Phosphatase Total Creatine Kinase CK-MB (Mass) Troponin I Total Protein Albumin Globulin Albumin/Globulin Ratio Procalcitonin 7.60 H Free T4 Thyroxine (T4) Free T3 pg/mL Total T3 TSH 3rd Generation Cortisol AM Sample Arterial Blood Potassium Urine Color Urine Clarity Urine pH Ur Specific [place] Urine Protein Urine Glucose (UA) Urine Ketones Urine Blood Urine Nitrate Urine Bilirubin Urine Urobilinogen Ur Leukocyte Esterase Urine WBC (Auto) Urine RBC (Auto) Ur Squamous Epith Cells Urine Bacteria Stool Occult Blood C. difficile Ag & Toxin 03/25/18 03/25/18 03/25/18 20:42 22:21 23:40 WBC RBC Hgb Hct MCV MCH MCHC RDW Plt Count MPV Neut % (Auto) Lymph % (Auto) [place] % (Auto) Eos % (Auto) Baso % (Auto) Neut # (Auto) Lymph # (Auto) [place] # (Auto) Eos # (Auto) Baso # (Auto) Neutrophils % (Manual) Band Neutrophils % Lymphocytes % (Manual) Monocytes % (Manual) Toxic Granulation Platelet Estimate Large Platelets RBC Morphology Poikilocytosis (manual Ovalocytes [place] Cells PT INR Puncture Site Lb pCO2 26 L pO2 198 H HCO3 13.6 L ABG pH 7.24 L ABG Total CO2 11.9 L ABG O2 Saturation 100.3 H ABG Base Excess -14.6 L ABG Hemoglobin ABG Carboxyhemoglobin POC ABG HHb (Measured) ABG Methemoglobin Jake Test Na ABG Potassium 4.0 A-a O2 Difference 55.0 Respiratory Index 0.3 Hgb O2 Saturation Glucose 77 Lactate 11.4 H* Vent Mode Prvc Mechanical Rate 18 FiO2 40.0 Tidal Volume 400 PEEP 5 Crit Value Called To Dr. gomez Crit Value Called By Pj mancuso Crit Value Read Back Y Blood Gas Notified Time 2225 Sodium 137 133.0 Potassium 4.2 Chloride 102 99.0 Carbon Dioxide 12 L Anion Gap 27 H BUN 35 H Creatinine 1.4 H Est GFR ( Amer) 45 Est GFR (Non-Af Amer) 37 POC Glucose (mg/dL) 79 Random Glucose 120 H Lactic Acid Calcium 7.6 L Phosphorus Magnesium Total Bilirubin 4.8 H AST 974 H D ALT 234 H D Alkaline Phosphatase 75 Total Creatine Kinase CK-MB (Mass) Troponin I Total Protein 5.8 L Albumin 2.7 L Globulin 3.0 Albumin/Globulin Ratio 0.9 L Procalcitonin Free T4 Thyroxine (T4) Free T3 pg/mL Total T3 TSH 3rd Generation Cortisol AM Sample Arterial Blood Potassium 4.0 Urine Color Urine Clarity Urine pH Ur Specific [place] Urine Protein Urine Glucose (UA) Urine Ketones Urine Blood Urine Nitrate Urine Bilirubin Urine Urobilinogen Ur Leukocyte Esterase Urine WBC (Auto) Urine RBC (Auto) Ur Squamous Epith Cells Urine Bacteria Stool Occult Blood C. difficile Ag & Toxin 03/26/18 03/26/18 03/26/18 03:16 04:25 05:03 WBC RBC Hgb Hct MCV MCH MCHC RDW Plt Count MPV Neut % (Auto) Lymph % (Auto) [place] % (Auto) Eos % (Auto) Baso % (Auto) Neut # (Auto) Lymph # (Auto) [place] # (Auto) Eos # (Auto) Baso # (Auto) Neutrophils % (Manual) Band Neutrophils % Lymphocytes % (Manual) Monocytes % (Manual) Toxic Granulation Platelet Estimate Large Platelets RBC Morphology Poikilocytosis (manual Ovalocytes Jeff Cells PT INR Puncture Site Lb pCO2 27 L pO2 179 H HCO3 17.9 L ABG pH 7.35 ABG Total CO2 15.7 L ABG O2 Saturation 99.9 H ABG Base Excess -9.1 L ABG Hemoglobin ABG Carboxyhemoglobin POC ABG HHb (Measured) ABG Methemoglobin Jake Test Na ABG Potassium 4.0 A-a O2 Difference 72.0 Respiratory Index 0.4 Hgb O2 Saturation Glucose 52 L Lactate 12.1 H* Vent Mode Prvc Mechanical Rate 18 FiO2 40.0 Tidal Volume 400 PEEP 5 Crit Value Called To Nirmala karimi/rn Crit Value Called By Phil monge/rt Crit Value Read Back Y Blood Gas Notified Time 445 Sodium 134.0 Potassium Chloride 98.0 Carbon Dioxide Anion Gap BUN Creatinine Est GFR ( Amer) Est GFR (Non-Af Amer) POC Glucose (mg/dL) 60 L Random Glucose Lactic Acid Calcium Phosphorus Magnesium Total Bilirubin AST ALT Alkaline Phosphatase Total Creatine Kinase 3135 H CK-MB (Mass) 21.2 H Troponin I 0.1160 Total Protein Albumin Globulin Albumin/Globulin Ratio Procalcitonin Free T4 Thyroxine (T4) Free T3 pg/mL Total T3 TSH 3rd Generation Cortisol AM Sample Arterial Blood Potassium 4.0 Urine Color Urine Clarity Urine pH Ur Specific [place] Urine Protein Urine Glucose (UA) Urine Ketones Urine Blood Urine Nitrate Urine Bilirubin Urine Urobilinogen Ur Leukocyte Esterase Urine WBC (Auto) Urine RBC (Auto) Ur Squamous Epith Cells Urine Bacteria Stool Occult Blood C. difficile Ag & Toxin 03/26/18 03/26/18 03/26/18 05:06 06:08 06:13 WBC 11.9 H RBC 4.02 Hgb 12.9 Hct 38.5 MCV 95.9 MCH 32.0 H MCHC 33.4 RDW 14.6 H Plt Count 82 L MPV 10.7 Neut % (Auto) 87.2 H Lymph % (Auto) 7.3 L [place] % (Auto) 5.3 Eos % (Auto) 0.1 Baso % (Auto) 0.1 Neut # (Auto) 10.4 H Lymph # (Auto) 0.9 L [place] # (Auto) 0.6 Eos # (Auto) 0.0 Baso # (Auto) 0.0 Neutrophils % (Manual) 72 Band Neutrophils % 16 H* Lymphocytes % (Manual) 7 L Monocytes % (Manual) 5 Toxic Granulation Present Platelet Estimate Decreased L Large Platelets Present RBC Morphology Poikilocytosis (manual Slight Ovalocytes Slight [place] Cells Slight PT INR Puncture Site pCO2 pO2 HCO3 ABG pH ABG Total CO2 ABG O2 Saturation ABG Base Excess ABG Hemoglobin ABG Carboxyhemoglobin POC ABG HHb (Measured) ABG Methemoglobin Jake Test ABG Potassium A-a O2 Difference Respiratory Index Hgb O2 Saturation Glucose Lactate Vent Mode Mechanical Rate FiO2 Tidal Volume PEEP Crit Value Called To Crit Value Called By Crit Value Read Back Blood Gas Notified Time Sodium Potassium Chloride Carbon Dioxide Anion Gap BUN Creatinine Est GFR ( Amer) Est GFR (Non-Af Amer) POC Glucose (mg/dL) 62 L Random Glucose Lactic Acid Calcium Phosphorus Magnesium Total Bilirubin AST ALT Alkaline Phosphatase Total Creatine Kinase CK-MB (Mass) Troponin I Total Protein Albumin Globulin Albumin/Globulin Ratio Procalcitonin Free T4 Thyroxine (T4) Free T3 pg/mL Total T3 TSH 3rd Generation Cortisol AM Sample Arterial Blood Potassium Urine Color Urine Clarity Urine pH Ur Specific [place] Urine Protein Urine Glucose (UA) Urine Ketones Urine Blood Urine Nitrate Urine Bilirubin Urine Urobilinogen Ur Leukocyte Esterase Urine WBC (Auto) Urine RBC (Auto) Ur Squamous Epith Cells Urine Bacteria Stool Occult Blood Positive H C. difficile Ag & Toxin 03/26/18 03/26/18 03/26/18 06:14 06:14 06:14 WBC RBC Hgb Hct MCV MCH MCHC RDW Plt Count MPV Neut % (Auto) Lymph % (Auto) [place] % (Auto) Eos % (Auto) Baso % (Auto) Neut # (Auto) Lymph # (Auto) [place] # (Auto) Eos # (Auto) Baso # (Auto) Neutrophils % (Manual) Band Neutrophils % Lymphocytes % (Manual) Monocytes % (Manual) Toxic Granulation Platelet Estimate Large Platelets RBC Morphology Poikilocytosis (manual Ovalocytes Jeff Cells PT INR Puncture Site pCO2 pO2 HCO3 ABG pH ABG Total CO2 ABG O2 Saturation ABG Base Excess ABG Hemoglobin ABG Carboxyhemoglobin POC ABG HHb (Measured) ABG Methemoglobin Jake Test ABG Potassium A-a O2 Difference Respiratory Index Hgb O2 Saturation Glucose Lactate Vent Mode Mechanical Rate FiO2 Tidal Volume PEEP Crit Value Called To Crit Value Called By Crit Value Read Back Blood Gas Notified Time Sodium 140 Potassium 4.4 Chloride 98 Carbon Dioxide 16 L Anion Gap 30 H BUN 40 H Creatinine 1.7 H Est GFR ( Amer) 36 Est GFR (Non-Af Amer) 30 POC Glucose (mg/dL) Random Glucose 44 L Lactic Acid Calcium 7.1 L Phosphorus 7.4 H Magnesium 1.9 Total Bilirubin 5.4 H AST 1390 H ALT 361 H D Alkaline Phosphatase 70 Total Creatine Kinase CK-MB (Mass) Troponin I Total Protein 5.7 L Albumin 2.7 L Globulin 3.0 Albumin/Globulin Ratio 0.9 L Procalcitonin Free T4 > 6.99 H Thyroxine (T4) 14.4 H Free T3 pg/mL Total T3 TSH 3rd Generation < 0.02 L Cortisol AM Sample > 616.0 H Arterial Blood Potassium Urine Color Urine Clarity Urine pH Ur Specific [place] Urine Protein Urine Glucose (UA) Urine Ketones Urine Blood Urine Nitrate Urine Bilirubin Urine Urobilinogen Ur Leukocyte Esterase Urine WBC (Auto) Urine RBC (Auto) Ur Squamous Epith Cells Urine Bacteria Stool Occult Blood C. difficile Ag & Toxin 03/26/18 03/26/18 03/26/18 07:40 08:54 08:54 WBC RBC Hgb Hct MCV MCH MCHC RDW Plt Count MPV Neut % (Auto) Lymph % (Auto) [place] % (Auto) Eos % (Auto) Baso % (Auto) Neut # (Auto) Lymph # (Auto) [place] # (Auto) Eos # (Auto) Baso # (Auto) Neutrophils % (Manual) Band Neutrophils % Lymphocytes % (Manual) Monocytes % (Manual) Toxic Granulation Platelet Estimate Large Platelets RBC Morphology Poikilocytosis (manual Ovalocytes [place] Cells PT INR Puncture Site pCO2 pO2 HCO3 ABG pH ABG Total CO2 ABG O2 Saturation ABG Base Excess ABG Hemoglobin ABG Carboxyhemoglobin POC ABG HHb (Measured) ABG Methemoglobin Jake Test ABG Potassium A-a O2 Difference Respiratory Index Hgb O2 Saturation Glucose Lactate Vent Mode Mechanical Rate FiO2 Tidal Volume PEEP Crit Value Called To Crit Value Called By Crit Value Read Back Blood Gas Notified Time Sodium Potassium Chloride Carbon Dioxide Anion Gap BUN Creatinine Est GFR ( Amer) Est GFR (Non-Af Amer) POC Glucose (mg/dL) 130 H Random Glucose Lactic Acid Calcium Phosphorus Magnesium Total Bilirubin AST ALT Alkaline Phosphatase Total Creatine Kinase CK-MB (Mass) Troponin I Total Protein Albumin Globulin Albumin/Globulin Ratio Procalcitonin 8.51 H Free T4 Thyroxine (T4) Free T3 pg/mL > 22.80 H Total T3 6.42 H TSH 3rd Generation Cortisol AM Sample Arterial Blood Potassium Urine Color Urine Clarity Urine pH Ur Specific [place] Urine Protein Urine Glucose (UA) Urine Ketones Urine Blood Urine Nitrate Urine Bilirubin Urine Urobilinogen Ur Leukocyte Esterase Urine WBC (Auto) Urine RBC (Auto) Ur Squamous Epith Cells Urine Bacteria Stool Occult Blood C. difficile Ag & Toxin 03/26/18 11:36 WBC RBC Hgb Hct MCV MCH MCHC RDW Plt Count MPV Neut % (Auto) Lymph % (Auto) [place] % (Auto) Eos % (Auto) Baso % (Auto) Neut # (Auto) Lymph # (Auto) [place] # (Auto) Eos # (Auto) Baso # (Auto) Neutrophils % (Manual) Band Neutrophils % Lymphocytes % (Manual) Monocytes % (Manual) Toxic Granulation Platelet Estimate Large Platelets RBC Morphology Poikilocytosis (manual Ovalocytes [place] Cells PT INR Puncture Site pCO2 pO2 HCO3 ABG pH ABG Total CO2 ABG O2 Saturation ABG Base Excess ABG Hemoglobin ABG Carboxyhemoglobin POC ABG HHb (Measured) ABG Methemoglobin Jake Test ABG Potassium A-a O2 Difference Respiratory Index Hgb O2 Saturation Glucose Lactate Vent Mode Mechanical Rate FiO2 Tidal Volume PEEP Crit Value Called To Crit Value Called By Crit Value Read Back Blood Gas Notified Time Sodium Potassium Chloride Carbon Dioxide Anion Gap BUN Creatinine Est GFR ( Amer) Est GFR (Non-Af Amer) POC Glucose (mg/dL) 201 H Random Glucose Lactic Acid Calcium Phosphorus Magnesium Total Bilirubin AST ALT Alkaline Phosphatase Total Creatine Kinase CK-MB (Mass) Troponin I Total Protein Albumin Globulin Albumin/Globulin Ratio Procalcitonin Free T4 Thyroxine (T4) Free T3 pg/mL Total T3 TSH 3rd Generation Cortisol AM Sample Arterial Blood Potassium Urine Color Urine Clarity Urine pH Ur Specific [place] Urine Protein Urine Glucose (UA) Urine Ketones Urine Blood Urine Nitrate Urine Bilirubin Urine Urobilinogen Ur Leukocyte Esterase Urine WBC (Auto) Urine RBC (Auto) Ur Squamous Epith Cells Urine Bacteria Stool Occult Blood C. difficile Ag & Toxin Attending/Attestation - Attestation I have personally seen and examined this patient.: Yes I have fully participated in the care of the patient.: Yes I have reviewed all pertinent clinical information: Yes Notes (Text): patient seen and examined. 72-year-old female initially admitted to telemetry for possible sepsis/ thyrotoxicosis and later transferred to intensive care unit after got intubated for respiratory distress and lethargy. Patient with long history of smoking. patient found to be in thyrotoxicosis crisis/storm Started on hydrocortisone, propranolol, methimazole, Endocrinology evaluation patient found to have low ejection fraction gentle hydration IV antibiotics Culture and sensitivity vent management
[2018-03-25 18:28] LABS: CK-MB 5.47 ng/mL (0.0-3.38); TROPONIN I 0.105 ng/mL (0.00-0.120)
[2018-03-25 18:33] LABS: T4 12.9 ug/dL (5.5-11.0)
--- NOTE | 2018-03-25 18:41 | CP.PCM.PN ---
Subjective - Date & Time of Evaluation Date of Evaluation: 03/25/18 Time of Evaluation: 18:35 - Subjective Subjective: Patient had to be intubated after she became alter mental status as well as difficulty breathing. She had echo just returned and was reporting severe left ventricular dysfunction and hypokinesis - her EF is only 20% I spoke with endocrinology about the elevated fever of 104 F as well as HRs that have been in the 100 - 110 range. Considering her severe elevated temperatures as well as elevated HR that our concern was for thyroid storm. As mentioned previously she only recently has been diagnosed with hyperthyroidism and only very recently started on medication propranolol as well as tapazole. We are giving IV hydrocortisone as well as I spoke with the family members at bed side as well. We need cardiology evaluation as well whom I spoke to. 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 Objective - Vital Signs/Intake and Output Vital Signs (last 24 hours): Temp Pulse Resp BP Pulse Ox 104.1 F H 104 H 28 H 80/35 L 98 03/25/18 16:00 03/25/18 17:30 03/25/18 17:30 03/25/18 18:15 03/25/18 17:30 Intake and Output: 03/25/18 03/25/18 06:59 18:59 Intake Total 200 Output Total 100 Balance 100 - Medications Medications: Current Medications Acetaminophen (Tylenol 650mg/20.3ml Solution Ud) 650 mg PO Q4H PRN PRN Reason: Temperature above 100.6 Last Admin: 03/25/18 17:23 Dose: 650 mg Enoxaparin Sodium (Lovenox) 40 mg SC DAILY [facility] Last Admin: 03/25/18 12:33 Dose: 40 mg Famotidine (Pepcid) 20 mg PO BID [facility] Last Admin: 03/25/18 12:33 Dose: Not Given Piperacillin Sod/Tazobactam Sod (Zosyn 3.375 Gm Iv Premix) 3.375 gm in 50 mls @ 100 mls/hr IVPB Q8H [facility] PRN Reason: Protocol Sodium Bicarbonate 100 meq/ (Sodium Chloride) 1,100 mls @ 75 mls/hr IV .[id number] [facility] Last Admin: 03/25/18 18:14 Dose: 75 mls/hr Norepinephrine Bitartrate 4 mg (/ Dextrose) 254 mls @ 15.24 mls/hr IV .[id number] PRN; Protocol; 4 MCG/MIN PRN Reason: TITRATE PER MD ORDER Last Admin: 03/25/18 18:15 Dose: 4 mcg/min, 15.24 mls/hr Methimazole (Tapazole) 10 mg PO TID NEREYDA Propranolol HCl (Inderal) 10 mg PO DAILY NEREYDA Propranolol HCl (Propranolol Inj) 5 mg IVP ONCE ONE Stop: 03/25/18 18:03 - Labs Labs: 03/25/18 16:34 03/25/18 16:39 PT 34.1 SECONDS (9.7-12.2) H* 03/25/18 16:34 INR 3.1 03/25/18 16:34 - Constitutional Appears: Confused, Chronically Ill - Head Exam Additional comments: Now intubated - Neurological Exam Neurological Exam: absent: Alert, Awake, Oriented x3 Additional comments: Intubated - Skin Skin Exam: Dry, Pallor Assessment and Plan - Assessment and Plan (Free Text) Assessment: 72 year old female with past medical history of recently diagnosed hyperthyroidism is admitted for intractable diarrhea, shortly thereafter developed respiratory distress and required intubation. There are fever 104 and rapid tachycardia. An echo was done showing severe hypokinesis and also low EF of 20% Thyroid Storm, elevated temperatures, rapid HR 03/25: Discussed with endocrinology. Has recieved IV hydrocortosone 250 mg Patient has been given IV hydrocortisone as well increased dose of tapazole to Q8. Continue the propranolol now, has also received IV propranol Per discussion with family members the patient has only been recently diagnosed with hyperthyroidism Will continue the following medications and adjust accordingly: methimazole 10 mg Q8H, Inderall 10 QD Respiratory failure: Now intubated 03/25: Likley secondary from worsening cardiac function. EF is very low and hypokinesis seen on echo She now has a central line and also on pressor IV levophed as well as bicarb ggt. Intractable diarrhea - secondary to hyperthyroidism Dehydration Dizziness Likely secondary to hyperthyroidism Will check stool studies for stool leukocytes, cultures, c diff and electrolytes Once stool studies negative for infective cause, will place on Imodium for relief Liver Lesion Incidental finding on CT. 5mm small lesion. If low risk of malignancy, no further follow up necessary. If high risk, recommended follow up CT or MRI in 6- 12 months. 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 Recommended follow up abdominal MRI in 6-12 months.
[2018-03-25] MEDS: Piperacill/Tazo 3.375gm in Dex 3.375 GM/50 ML BAG IVPB SCH (18:53)
[2018-03-25 20:45] LABS: BASO # 0.1 K/uL (0.0-0.2); BASO % 0.7 % (0.0-2.0); EOS # 0.1 K/uL (0.0-0.7); EOS % 0.7 % (0.0-4.0); HEMOGLOBIN 13.3 g/dL (11.0-16.0); LYMPH # 0.5 K/uL (1.0-4.3); LYMPH % 5.5 % (20.0-40.0); MEAN CORPUSCULAR HEMOGLOBIN 32.1 pg (27.0-31.0); MEAN CORPUSCULAR HGB CONC 33.1 g/dL (33.0-37.0); MEAN PLATELET VOLUME 9.3 fL (7.2-11.7); MONO # 0.6 K/uL (0.0-0.8); MONO % 6.8 % (0.0-10.0); NEUT # 7.6 K/uL (1.8-7.0); NEUT % 86.3 % (50.0-75.0); NRBC % 0.1 % (0.0-2.0); PLATELET COUNT 67 K/uL (130-400); RBC 4.13 Mil/uL (3.80-5.20); RED CELL DISTRIBUTION WIDTH 14.8 % (11.5-14.5); WHITE BLOOD COUNT 8.8 K/uL (4.8-10.8)
[2018-03-25 21:10] LABS: ALB/GLOB RATIO 0.9 (1.0-2.1); ALBUMIN 2.7 g/dL (3.5-5.0); CALCIUM 7.6 mg/dl (8.6-10.4)
[2018-03-25 21:25] LABS: BANDS 2 % (0-2); LYMPHOCYTE 3 % (20-40); MONOCYTE 3 % (0-10); NEUTROPHIL 92 % (50-75); PLATELET ESTIMATE DECREASED (NORMAL); TOTAL CELLS COUNTED 100
[2018-03-25 22:26] LABS: ARTERIAL BLOOD GAS HCO3 13.6 mmol/L (21-28); ARTERIAL BLOOD GAS O2 SAT 100.3 % (95-98); ARTERIAL BLOOD GAS PCO2 26 mm/Hg (35-45); ARTERIAL BLOOD GAS PH 7.24 (7.35-7.45); ARTERIAL BLOOD GAS PO2 198 mm/Hg (80-100); ARTERIAL BLOOD GAS TCO2 11.9 mmol/L (22-28)
[2018-03-26] MEDS: Piperacill/Tazo 3.375gm in Dex 3.375 GM/50 ML BAG IVPB SCH ×3 (01:22→16:59)
[2018-03-26 03:42] LABS: TROPONIN I 0.116 ng/mL (0.00-0.120)
[2018-03-26 03:51] LABS: CK-MB 21.2 ng/mL (0.0-3.38)
[2018-03-26 04:38] LABS: ARTERIAL BLOOD GAS HCO3 17.9 mmol/L (21-28); ARTERIAL BLOOD GAS O2 SAT 99.9 % (95-98); ARTERIAL BLOOD GAS PCO2 27 mm/Hg (35-45); ARTERIAL BLOOD GAS PH 7.35 (7.35-7.45); ARTERIAL BLOOD GAS PO2 179 mm/Hg (80-100); ARTERIAL BLOOD GAS TCO2 15.7 mmol/L (22-28)
[2018-03-26 06:18] LABS: BASO % 0.1 % (0.0-2.0); EOS % 0.1 % (0.0-4.0); HEMOGLOBIN 12.9 g/dL (11.0-16.0); LYMPH # 0.9 K/uL (1.0-4.3); LYMPH % 7.3 % (20.0-40.0); MEAN CELL VOLUME 95.9 fL (81.0-99.0); MEAN CORPUSCULAR HGB CONC 33.4 g/dL (33.0-37.0); MEAN PLATELET VOLUME 10.7 fL (7.2-11.7); MONO # 0.6 K/uL (0.0-0.8); MONO % 5.3 % (0.0-10.0); NEUT # 10.4 K/uL (1.8-7.0); NEUT % 87.2 % (50.0-75.0); PLATELET COUNT 82 K/uL (130-400); RBC 4.02 Mil/uL (3.80-5.20); RED CELL DISTRIBUTION WIDTH 14.6 % (11.5-14.5); WHITE BLOOD COUNT 11.9 K/uL (4.8-10.8)
[2018-03-26 06:46] LABS: ALB/GLOB RATIO 0.9 (1.0-2.1); ALBUMIN 2.7 g/dL (3.5-5.0); ALT/SGPT 361 U/L (9-52); BLOOD UREA NITROGEN 40 mg/dL (7-17); CALCIUM 7.1 mg/dl (8.6-10.4)
[2018-03-26 06:56] LABS: T4 14.4 ug/dL (5.5-11.0)
[2018-03-26 07:00] LABS: AST/SGOT 1390 U/L (14-36); GFR AFRICAN-AMERICAN 36; GFR NON-AFRICAN AMERICAN 30
[2018-03-26 08:20] LABS: BANDS 16 % (0-2); LYMPHOCYTE 7 % (20-40); MONOCYTE 5 % (0-10); OVALOCYTES SLIGHT; PLATELET ESTIMATE DECREASED (NORMAL); POIKILOCYTOSIS SLIGHT; TOTAL CELLS COUNTED 100
[2018-03-26 08:21] LABS: BURR CELLS SLIGHT; NEUTROPHIL 72 % (50-75); TOXIC GRANULATION PRESENT
--- NOTE | 2018-03-26 08:21 | CP.PCM.CON ---
History of Present Illness - History of Present Illness History of Present Illness: patient seen/examined. full consutl to follow discussed with daughter at the bedside. severe LV dysfunction, possibly related to hyperthyroidism. consider change to more cardioselective betablocker. medical therapy. eventual Lifevest. Past Patient History - Past Social History Smoking Status: Light Smoker < 10 Cigarettes Daily - CARDIAC Hx Cardia Arrhythmia: Yes - PULMONARY Hx Respiratory Disorders: No - NEUROLOGICAL Hx Neurological Disorder: No - HEENT Hx HEENT Problems: No - RENAL Hx Chronic Kidney Disease: No - ENDOCRINE/METABOLIC Hx Hyperthyroidism: Yes (DX 2017. MARCH) - HEMATOLOGICAL/ONCOLOGICAL Hx Blood Disorders: No - INTEGUMENTARY Hx Dermatological Problems: No - MUSCULOSKELETAL/RHEUMATOLOGICAL Hx Falls: Yes (felt dizzy at home and fell) - GASTROINTESTINAL Hx Diarrhea: Yes Hx Nausea: Yes - GENITOURINARY/GYNECOLOGICAL Hx Genitourinary Disorders: No - PSYCHIATRIC Hx Psychophysiologic Disorder: No Hx Substance Use: No - SURGICAL HISTORY Hx Surgeries: No - ANESTHESIA Hx Anesthesia: Yes Hx Anesthesia Reactions: No Hx Malignant Hyperthermia: No Has any member of the family had a problem w/ anesthesia?: No Meds Allergies/Adverse Reactions: Allergies Allergy/AdvReac Type Severity Reaction Status Date / Time No Known Allergies Allergy Unverified 03/24/18 20:31 - Medications Medications: Current Medications Acetaminophen (Tylenol 650mg/20.3ml Solution Ud) 650 mg PO Q4H PRN PRN Reason: Temperature above 100.6 Last Admin: 03/25/18 17:23 Dose: 650 mg Cholestyramine Resin (Prevalite) 4 gm PO Q8H REPLACED BY [facility] Enoxaparin Sodium (Lovenox) 40 mg SC DAILY REPLACED BY [facility] Last Admin: 03/25/18 12:33 Dose: 40 mg Famotidine (Pepcid) 20 mg PO BID REPLACED BY [facility] Last Admin: 03/25/18 18:52 Dose: 20 mg Hydrocortisone Sodium Succinate (Solu-Cortef) 100 mg IV Q8H REPLACED BY [facility] Piperacillin Sod/Tazobactam Sod (Zosyn 3.375 Gm Iv Premix) 3.375 gm in 50 mls @ 100 mls/hr IVPB Q8H NEREYDA PRN Reason: Protocol Last Admin: 03/26/18 01:22 Dose: 100 mls/hr Norepinephrine Bitartrate 4 mg (/ Dextrose) 254 mls @ 15.24 mls/hr IV .[id number] PRN; Protocol; 4 MCG/MIN PRN Reason: TITRATE PER MD ORDER Last Titration: 03/26/18 04:03 Dose: 9.84 mcg/min, 37.5 mls/hr Sodium Bicarbonate 150 meq/ (Sodium Chloride) 1,150 mls @ 150 mls/hr IV .[id number] NEREYDA Last Admin: 03/26/18 07:54 Dose: 150 mls/hr Vasopressin 40 units/ Sodium (Chloride) 42 mls @ 0.63 mls/hr IV .Q24H NEREYDA; 0.01 UNITS/MIN PRN Reason: Protocol Last Titration: 03/26/18 04:00 Dose: 0.03 units/min, 2.4 mls/hr Dextrose (Dextrose 10% In Water) 500 mls @ 50 mls/hr IV .Q10H NEREYDA Last Admin: 03/26/18 05:27 Dose: 50 mls/hr Methimazole (Tapazole) 10 mg PO TID REPLACED BY [facility] Last Admin: 03/25/18 20:44 Dose: 10 mg Propranolol HCl (Inderal) 10 mg PO DAILY REPLACED BY [facility] Results - Vital Signs Recent Vital Signs: Last Vital Signs Temp 100.1 F H 03/26/18 04:00 Pulse 85 03/26/18 07:50 Resp 23 03/26/18 07:50 BP 103/38 L 03/26/18 07:44 Pulse Ox 97 03/26/18 07:50 - Labs Result Diagrams: 03/26/18 06:13 03/26/18 06:14 Labs: Laboratory Results - last 24 hr 03/25/18 03/25/18 03/25/18 16:34 16:34 16:34 WBC 7.0 D RBC 4.16 Hgb 13.2 Hct 40.0 MCV 96.2 MCH 31.7 H MCHC 33.0 RDW 14.7 H Plt Count 84 L MPV 9.4 Neut % (Auto) 82.0 H Lymph % (Auto) 6.1 L [place] % (Auto) 11.1 H Eos % (Auto) 0.4 Baso % (Auto) 0.4 Neut # (Auto) 5.8 Lymph # (Auto) 0.4 L [place] # (Auto) 0.8 Eos # (Auto) 0.0 Baso # (Auto) 0.0 Neutrophils % (Manual) 85 H Band Neutrophils % 2 Lymphocytes % (Manual) 5 L Monocytes % (Manual) 8 Platelet Estimate Decreased L RBC Morphology Normal PT 34.1 H* INR 3.1 Puncture Site pCO2 pO2 HCO3 ABG pH ABG Total CO2 ABG O2 Saturation ABG Base Excess ABG Hemoglobin ABG Carboxyhemoglobin POC ABG HHb (Measured) ABG Methemoglobin Jake Test ABG Potassium A-a O2 Difference Respiratory Index Hgb O2 Saturation Glucose Lactate Vent Mode Mechanical Rate FiO2 Tidal Volume PEEP Crit Value Called To Crit Value Called By Crit Value Read Back Blood Gas Notified Time Sodium Potassium Chloride Carbon Dioxide Anion Gap BUN Creatinine Est GFR ( Amer) Est GFR (Non-Af Amer) POC Glucose (mg/dL) Random Glucose Lactic Acid Calcium Phosphorus Magnesium Total Bilirubin AST ALT Alkaline Phosphatase Total Creatine Kinase CK-MB (Mass) Troponin I Total Protein Albumin Globulin Albumin/Globulin Ratio Procalcitonin Free T4 Thyroxine (T4) TSH 3rd Generation Arterial Blood Potassium Urine Color Martha Urine Clarity Hazy Urine pH 5.0 Ur Specific Reform 1.057 H Urine Protein 1+ H Urine Glucose (UA) Normal Urine Ketones Negative Urine Blood 1+ H Urine Nitrate Negative Urine Bilirubin Negative Urine Urobilinogen Normal Ur Leukocyte Esterase Trace Urine WBC (Auto) 13 H Urine RBC (Auto) 14 H Ur Squamous Epith Cells 8 H Urine Bacteria Few H Stool Occult Blood 03/25/18 03/25/18 03/25/18 16:34 16:39 16:50 WBC RBC Hgb Hct MCV MCH MCHC RDW Plt Count MPV Neut % (Auto) Lymph % (Auto) [place] % (Auto) Eos % (Auto) Baso % (Auto) Neut # (Auto) Lymph # (Auto) [place] # (Auto) Eos # (Auto) Baso # (Auto) Neutrophils % (Manual) Band Neutrophils % Lymphocytes % (Manual) Monocytes % (Manual) Platelet Estimate RBC Morphology PT INR Puncture Site Lb pCO2 31 L pO2 500 H HCO3 17.2 L ABG pH 7.30 L ABG Total CO2 16.3 L ABG O2 Saturation 100.5 H ABG Base Excess -9.9 L ABG Hemoglobin 12.7 ABG Carboxyhemoglobin 1.7 H POC ABG HHb (Measured) -0.5 L ABG Methemoglobin 1.2 Jake Test Na ABG Potassium A-a O2 Difference 174.0 Respiratory Index 0.3 Hgb O2 Saturation 97.5 Glucose Lactate Vent Mode Prvc Mechanical Rate 14 FiO2 100.0 Tidal Volume 400 PEEP 5 Crit Value Called To Crit Value Called By Crit Value Read Back Blood Gas Notified Time Sodium 135 Potassium 4.9 Chloride 101 Carbon Dioxide 17 L Anion Gap 21 H BUN 32 H Creatinine 1.1 Est GFR ( Amer) 59 Est GFR (Non-Af Amer) 49 POC Glucose (mg/dL) Random Glucose < 20 L* D Lactic Acid 5.1 H* Calcium 8.4 L Phosphorus Magnesium Total Bilirubin 4.4 H AST 278 H D ALT 84 H D Alkaline Phosphatase 89 Total Creatine Kinase CK-MB (Mass) Troponin I Total Protein 6.4 Albumin 3.1 L Globulin 3.3 Albumin/Globulin Ratio 0.9 L Procalcitonin Free T4 Thyroxine (T4) TSH 3rd Generation Arterial Blood Potassium Urine Color Urine Clarity Urine pH Ur Specific Reform Urine Protein Urine Glucose (UA) Urine Ketones Urine Blood Urine Nitrate Urine Bilirubin Urine Urobilinogen Ur Leukocyte Esterase Urine WBC (Auto) Urine RBC (Auto) Ur Squamous Epith Cells Urine Bacteria Stool Occult Blood 03/25/18 03/25/18 03/25/18 17:44 18:07 20:40 WBC RBC Hgb Hct MCV MCH MCHC RDW Plt Count MPV Neut % (Auto) Lymph % (Auto) [place] % (Auto) Eos % (Auto) Baso % (Auto) Neut # (Auto) Lymph # (Auto) [place] # (Auto) Eos # (Auto) Baso # (Auto) Neutrophils % (Manual) Band Neutrophils % Lymphocytes % (Manual) Monocytes % (Manual) Platelet Estimate RBC Morphology PT INR Puncture Site Line pCO2 32 L pO2 49 L HCO3 14.0 L ABG pH 7.22 L ABG Total CO2 14.1 L ABG O2 Saturation 82.5 L ABG Base Excess -13.5 L ABG Hemoglobin 12.4 ABG Carboxyhemoglobin 2.1 H POC ABG HHb (Measured) 17.0 H ABG Methemoglobin 0.8 Jake Test Na ABG Potassium A-a O2 Difference 196.0 Respiratory Index 4.0 Hgb O2 Saturation 80.1 L Glucose Lactate Vent Mode Prvc Mechanical Rate 18 FiO2 40.0 Tidal Volume 400 PEEP 5 Crit Value Called To Crit Value Called By Crit Value Read Back Blood Gas Notified Time Sodium Potassium Chloride Carbon Dioxide Anion Gap BUN Creatinine Est GFR ( Amer) Est GFR (Non-Af Amer) POC Glucose (mg/dL) 136 H Random Glucose Lactic Acid Calcium Phosphorus Magnesium Total Bilirubin AST ALT Alkaline Phosphatase Total Creatine Kinase 854 H CK-MB (Mass) 5.47 H Troponin I 0.1050 Total Protein Albumin Globulin Albumin/Globulin Ratio Procalcitonin Free T4 Thyroxine (T4) 12.9 H TSH 3rd Generation Arterial Blood Potassium Urine Color Urine Clarity Urine pH Ur Specific Reform Urine Protein Urine Glucose (UA) Urine Ketones Urine Blood Urine Nitrate Urine Bilirubin Urine Urobilinogen Ur Leukocyte Esterase Urine WBC (Auto) Urine RBC (Auto) Ur Squamous Epith Cells Urine Bacteria Stool Occult Blood 03/25/18 03/25/18 03/25/18 20:42 20:42 20:42 WBC 8.8 RBC 4.13 Hgb 13.3 Hct 40.0 MCV 97.0 MCH 32.1 H MCHC 33.1 RDW 14.8 H Plt Count 67 L MPV 9.3 Neut % (Auto) 86.3 H Lymph % (Auto) 5.5 L [place] % (Auto) 6.8 Eos % (Auto) 0.7 Baso % (Auto) 0.7 Neut # (Auto) 7.6 H Lymph # (Auto) 0.5 L [place] # (Auto) 0.6 Eos # (Auto) 0.1 Baso # (Auto) 0.1 Neutrophils % (Manual) 92 H Band Neutrophils % 2 Lymphocytes % (Manual) 3 L Monocytes % (Manual) 3 Platelet Estimate Decreased L RBC Morphology Normal PT INR Puncture Site pCO2 pO2 HCO3 ABG pH ABG Total CO2 ABG O2 Saturation ABG Base Excess ABG Hemoglobin ABG Carboxyhemoglobin POC ABG HHb (Measured) ABG Methemoglobin Jake Test ABG Potassium A-a O2 Difference Respiratory Index Hgb O2 Saturation Glucose Lactate Vent Mode Mechanical Rate FiO2 Tidal Volume PEEP Crit Value Called To Crit Value Called By Crit Value Read Back Blood Gas Notified Time Sodium 137 Potassium 4.2 Chloride 102 Carbon Dioxide 12 L Anion Gap 27 H BUN 35 H Creatinine 1.4 H Est GFR ( Amer) 45 Est GFR (Non-Af Amer) 37 POC Glucose (mg/dL) Random Glucose 120 H Lactic Acid Calcium 7.6 L Phosphorus Magnesium Total Bilirubin 4.8 H AST 974 H D ALT 234 H D Alkaline Phosphatase 75 Total Creatine Kinase CK-MB (Mass) Troponin I Total Protein 5.8 L Albumin 2.7 L Globulin 3.0 Albumin/Globulin Ratio 0.9 L Procalcitonin 7.60 H Free T4 Thyroxine (T4) TSH 3rd Generation Arterial Blood Potassium Urine Color Urine Clarity Urine pH Ur Specific Reform Urine Protein Urine Glucose (UA) Urine Ketones Urine Blood Urine Nitrate Urine Bilirubin Urine Urobilinogen Ur Leukocyte Esterase Urine WBC (Auto) Urine RBC (Auto) Ur Squamous Epith Cells Urine Bacteria Stool Occult Blood 03/25/18 03/25/18 03/26/18 22:21 23:40 03:16 WBC RBC Hgb Hct MCV MCH MCHC RDW Plt Count MPV Neut % (Auto) Lymph % (Auto) [place] % (Auto) Eos % (Auto) Baso % (Auto) Neut # (Auto) Lymph # (Auto) [place] # (Auto) Eos # (Auto) Baso # (Auto) Neutrophils % (Manual) Band Neutrophils % Lymphocytes % (Manual) Monocytes % (Manual) Platelet Estimate RBC Morphology PT INR Puncture Site Lb pCO2 26 L pO2 198 H HCO3 13.6 L ABG pH 7.24 L ABG Total CO2 11.9 L ABG O2 Saturation 100.3 H ABG Base Excess -14.6 L ABG Hemoglobin ABG Carboxyhemoglobin POC ABG HHb (Measured) ABG Methemoglobin Jake Test Na ABG Potassium 4.0 A-a O2 Difference 55.0 Respiratory Index 0.3 Hgb O2 Saturation Glucose 77 Lactate 11.4 H* Vent Mode Prvc Mechanical Rate 18 FiO2 40.0 Tidal Volume 400 PEEP 5 Crit Value Called To Dr. gomez Crit Value Called By Pj mancuso Crit Value Read Back Y Blood Gas Notified Time 2224 Sodium 133.0 Potassium Chloride 99.0 Carbon Dioxide Anion Gap BUN Creatinine Est GFR ( Amer) Est GFR (Non-Af Amer) POC Glucose (mg/dL) 79 Random Glucose Lactic Acid Calcium Phosphorus Magnesium Total Bilirubin AST ALT Alkaline Phosphatase Total Creatine Kinase 3135 H CK-MB (Mass) 21.2 H Troponin I 0.1160 Total Protein Albumin Globulin Albumin/Globulin Ratio Procalcitonin Free T4 Thyroxine (T4) TSH 3rd Generation Arterial Blood Potassium 4.0 Urine Color Urine Clarity Urine pH Ur Specific Reform Urine Protein Urine Glucose (UA) Urine Ketones Urine Blood Urine Nitrate Urine Bilirubin Urine Urobilinogen Ur Leukocyte Esterase Urine WBC (Auto) Urine RBC (Auto) Ur Squamous Epith Cells Urine Bacteria Stool Occult Blood 03/26/18 03/26/18 03/26/18 04:25 05:03 05:06 WBC RBC Hgb Hct MCV MCH MCHC RDW Plt Count MPV Neut % (Auto) Lymph % (Auto) [place] % (Auto) Eos % (Auto) Baso % (Auto) Neut # (Auto) Lymph # (Auto) [place] # (Auto) Eos # (Auto) Baso # (Auto) Neutrophils % (Manual) Band Neutrophils % Lymphocytes % (Manual) Monocytes % (Manual) Platelet Estimate RBC Morphology PT INR Puncture Site Lb pCO2 27 L pO2 179 H HCO3 17.9 L ABG pH 7.35 ABG Total CO2 15.7 L ABG O2 Saturation 99.9 H ABG Base Excess -9.1 L ABG Hemoglobin ABG Carboxyhemoglobin POC ABG HHb (Measured) ABG Methemoglobin Jake Test Na ABG Potassium 4.0 A-a O2 Difference 72.0 Respiratory Index 0.4 Hgb O2 Saturation Glucose 52 L Lactate 12.1 H* Vent Mode Prvc Mechanical Rate 18 FiO2 40.0 Tidal Volume 400 PEEP 5 Crit Value Called To Nirmala karimi/rn Crit Value Called By Phil monge/rt Crit Value Read Back Y Blood Gas Notified Time 445 Sodium 134.0 Potassium Chloride 98.0 Carbon Dioxide Anion Gap BUN Creatinine Est GFR ( Amer) Est GFR (Non-Af Amer) POC Glucose (mg/dL) 60 L 62 L Random Glucose Lactic Acid Calcium Phosphorus Magnesium Total Bilirubin AST ALT Alkaline Phosphatase Total Creatine Kinase CK-MB (Mass) Troponin I Total Protein Albumin Globulin Albumin/Globulin Ratio Procalcitonin Free T4 Thyroxine (T4) TSH 3rd Generation Arterial Blood Potassium 4.0 Urine Color Urine Clarity Urine pH Ur Specific Reform Urine Protein Urine Glucose (UA) Urine Ketones Urine Blood Urine Nitrate Urine Bilirubin Urine Urobilinogen Ur Leukocyte Esterase Urine WBC (Auto) Urine RBC (Auto) Ur Squamous Epith Cells Urine Bacteria Stool Occult Blood 03/26/18 03/26/18 03/26/18 06:08 06:13 06:14 WBC 11.9 H RBC 4.02 Hgb 12.9 Hct 38.5 MCV 95.9 MCH 32.0 H MCHC 33.4 RDW 14.6 H Plt Count 82 L MPV 10.7 Neut % (Auto) 87.2 H Lymph % (Auto) 7.3 L [place] % (Auto) 5.3 Eos % (Auto) 0.1 Baso % (Auto) 0.1 Neut # (Auto) 10.4 H Lymph # (Auto) 0.9 L [place] # (Auto) 0.6 Eos # (Auto) 0.0 Baso # (Auto) 0.0 Neutrophils % (Manual) Band Neutrophils % Lymphocytes % (Manual) Monocytes % (Manual) Platelet Estimate RBC Morphology PT INR Puncture Site pCO2 pO2 HCO3 ABG pH ABG Total CO2 ABG O2 Saturation ABG Base Excess ABG Hemoglobin ABG Carboxyhemoglobin POC ABG HHb (Measured) ABG Methemoglobin Jake Test ABG Potassium A-a O2 Difference Respiratory Index Hgb O2 Saturation Glucose Lactate Vent Mode Mechanical Rate FiO2 Tidal Volume PEEP Crit Value Called To Crit Value Called By Crit Value Read Back Blood Gas Notified Time Sodium 140 Potassium 4.4 Chloride 98 Carbon Dioxide 16 L Anion Gap 30 H BUN 40 H Creatinine 1.7 H Est GFR ( Amer) 36 Est GFR (Non-Af Amer) 30 POC Glucose (mg/dL) Random Glucose 44 L Lactic Acid Calcium 7.1 L Phosphorus 7.4 H Magnesium 1.9 Total Bilirubin 5.4 H AST 1390 H ALT 361 H D Alkaline Phosphatase 70 Total Creatine Kinase CK-MB (Mass) Troponin I Total Protein 5.7 L Albumin 2.7 L Globulin 3.0 Albumin/Globulin Ratio 0.9 L Procalcitonin Free T4 Thyroxine (T4) 14.4 H TSH 3rd Generation < 0.02 L Arterial Blood Potassium Urine Color Urine Clarity Urine pH Ur Specific Reform Urine Protein Urine Glucose (UA) Urine Ketones Urine Blood Urine Nitrate Urine Bilirubin Urine Urobilinogen Ur Leukocyte Esterase Urine WBC (Auto) Urine RBC (Auto) Ur Squamous Epith Cells Urine Bacteria Stool Occult Blood Positive H 03/26/18 03/26/18 06:14 07:40 WBC RBC Hgb Hct MCV MCH MCHC RDW Plt Count MPV Neut % (Auto) Lymph % (Auto) [place] % (Auto) Eos % (Auto) Baso % (Auto) Neut # (Auto) Lymph # (Auto) [place] # (Auto) Eos # (Auto) Baso # (Auto) Neutrophils % (Manual) Band Neutrophils % Lymphocytes % (Manual) Monocytes % (Manual) Platelet Estimate RBC Morphology PT INR Puncture Site pCO2 pO2 HCO3 ABG pH ABG Total CO2 ABG O2 Saturation ABG Base Excess ABG Hemoglobin ABG Carboxyhemoglobin POC ABG HHb (Measured) ABG Methemoglobin Jake Test ABG Potassium A-a O2 Difference Respiratory Index Hgb O2 Saturation Glucose Lactate Vent Mode Mechanical Rate FiO2 Tidal Volume PEEP Crit Value Called To Crit Value Called By Crit Value Read Back Blood Gas Notified Time Sodium Potassium Chloride Carbon Dioxide Anion Gap BUN Creatinine Est GFR ( Amer) Est GFR (Non-Af Amer) POC Glucose (mg/dL) 130 H Random Glucose Lactic Acid Calcium Phosphorus Magnesium Total Bilirubin AST ALT Alkaline Phosphatase Total Creatine Kinase CK-MB (Mass) Troponin I Total Protein Albumin Globulin Albumin/Globulin Ratio Procalcitonin Free T4 > 6.99 H Thyroxine (T4) TSH 3rd Generation Arterial Blood Potassium Urine Color Urine Clarity Urine pH Ur Specific Reform Urine Protein Urine Glucose (UA) Urine Ketones Urine Blood Urine Nitrate Urine Bilirubin Urine Urobilinogen Ur Leukocyte Esterase Urine WBC (Auto) Urine RBC (Auto) Ur Squamous Epith Cells Urine Bacteria Stool Occult Blood
--- NOTE | 2018-03-26 08:21 | CP.PCM.CON ---
History of Present Illness - History of Present Illness History of Present Illness: I was asked to evaluate patient by Dr Gomez. Patient is a 72 year old female with PMH HTN, thryoid condition who presents with thyroid storm. The patient was previously diagnosed with hyperthyroidism, howevere was noncomplinat with outpatient therapy. The patient was seen by her loaders as outpatient, started on Toprol XL and was scheduled for echocardiogram. She presented with tachycardia fever hypotension. the patient required intubation. She currently has cardiomyopathy by echocardiogram with severe LV dysfunction, EF 20%. Review of Systems - Review of Systems Systems not reviewed;Unavailable: Intubated Past Patient History - Past Social History Smoking Status: Light Smoker < 10 Cigarettes Daily - CARDIAC Hx Cardia Arrhythmia: Yes - PULMONARY Hx Respiratory Disorders: No - NEUROLOGICAL Hx Neurological Disorder: No - HEENT Hx HEENT Problems: No - RENAL Hx Chronic Kidney Disease: No - ENDOCRINE/METABOLIC Hx Hyperthyroidism: Yes (DX March) - HEMATOLOGICAL/ONCOLOGICAL Hx Blood Disorders: No - INTEGUMENTARY Hx Dermatological Problems: No - MUSCULOSKELETAL/RHEUMATOLOGICAL Hx Falls: Yes (felt dizzy at home and fell) - GASTROINTESTINAL Hx Diarrhea: Yes Hx Nausea: Yes - GENITOURINARY/GYNECOLOGICAL Hx Genitourinary Disorders: No - PSYCHIATRIC Hx Psychophysiologic Disorder: No Hx Substance Use: No - SURGICAL HISTORY Hx Surgeries: No - ANESTHESIA Hx Anesthesia: Yes Hx Anesthesia Reactions: No Hx Malignant Hyperthermia: No Has any member of the family had a problem w/ anesthesia?: No Meds Allergies/Adverse Reactions: Allergies Allergy/AdvReac Type Severity Reaction Status Date / Time No Known Allergies Allergy Unverified 03/24/18 20:31 - Medications Medications: Current Medications Acetaminophen (Tylenol 650mg/20.3ml Solution Ud) 650 mg PO Q4H PRN PRN Reason: Temperature above 100.6 Last Admin: 03/25/18 17:23 Dose: 650 mg Cholestyramine Resin (Prevalite) 4 gm PO Q8H [facility] Enoxaparin Sodium (Lovenox) 40 mg SC DAILY [facility] Last Admin: 03/25/18 12:33 Dose: 40 mg Famotidine (Pepcid) 20 mg PO BID [facility] Last Admin: 03/25/18 18:52 Dose: 20 mg Hydrocortisone Sodium Succinate (Solu-Cortef) 100 mg IV Q8H [facility] Piperacillin Sod/Tazobactam Sod (Zosyn 3.375 Gm Iv Premix) 3.375 gm in 50 mls @ 100 mls/hr IVPB Q8H NEREYDA PRN Reason: Protocol Last Admin: 03/26/18 01:22 Dose: 100 mls/hr Norepinephrine Bitartrate 4 mg (/ Dextrose) 254 mls @ 15.24 mls/hr IV .[id number] PRN; Protocol; 4 MCG/MIN PRN Reason: TITRATE PER MD ORDER Last Titration: 03/26/18 04:03 Dose: 9.84 mcg/min, 37.5 mls/hr Sodium Bicarbonate 150 meq/ (Sodium Chloride) 1,150 mls @ 150 mls/hr IV .[id number] NEREYDA Last Admin: 03/26/18 07:54 Dose: 150 mls/hr Vasopressin 40 units/ Sodium (Chloride) 42 mls @ 0.63 mls/hr IV .Q24H NEREYDA; 0.01 UNITS/MIN PRN Reason: Protocol Last Titration: 03/26/18 04:00 Dose: 0.03 units/min, 2.4 mls/hr Dextrose (Dextrose 10% In Water) 500 mls @ 50 mls/hr IV .Q10H NEREYDA Last Admin: 03/26/18 05:27 Dose: 50 mls/hr Methimazole (Tapazole) 10 mg PO TID NEREYDA Last Admin: 03/25/18 20:44 Dose: 10 mg Propranolol HCl (Inderal) 10 mg PO DAILY NEREYDA Physical Exam - Constitutional Appears: Toxic - Head Exam Head Exam: NORMAL INSPECTION - Eye Exam Eye Exam: Normal appearance - ENT Exam ENT Exam: Mucous Membranes Dry - Neck Exam Neck exam: Positive for: Full Rom - Respiratory Exam Respiratory Exam: Decreased Breath Sounds - Cardiovascular Exam Cardiovascular Exam: Tachycardia - GI/Abdominal Exam GI & Abdominal Exam: Normal Bowel Sounds - Rectal Exam Rectal Exam: Deferred - Extremities Exam Extremities exam: Negative for: pedal edema - Back Exam Back exam: NORMAL INSPECTION - Skin Skin Exam: Normal Color Results - Vital Signs Recent Vital Signs: Last Vital Signs Temp 100.1 F H 03/26/18 04:00 Pulse 85 03/26/18 07:50 Resp 23 03/26/18 07:50 BP 103/38 L 03/26/18 07:44 Pulse Ox 97 03/26/18 07:50 - Labs Result Diagrams: 03/30/18 06:33 03/30/18 06:35 Labs: Laboratory Results - last 24 hr 03/25/18 03/25/18 03/25/18 16:34 16:34 16:34 WBC 7.0 D RBC 4.16 Hgb 13.2 Hct 40.0 MCV 96.2 MCH 31.7 H MCHC 33.0 RDW 14.7 H Plt Count 84 L MPV 9.4 Neut % (Auto) 82.0 H Lymph % (Auto) 6.1 L Weld % (Auto) 11.1 H Eos % (Auto) 0.4 Baso % (Auto) 0.4 Neut # (Auto) 5.8 Lymph # (Auto) 0.4 L Weld # (Auto) 0.8 Eos # (Auto) 0.0 Baso # (Auto) 0.0 Neutrophils % (Manual) 85 H Band Neutrophils % 2 Lymphocytes % (Manual) 5 L Monocytes % (Manual) 8 Platelet Estimate Decreased L RBC Morphology Normal PT 34.1 H* INR 3.1 Puncture Site pCO2 pO2 HCO3 ABG pH ABG Total CO2 ABG O2 Saturation ABG Base Excess ABG Hemoglobin ABG Carboxyhemoglobin POC ABG HHb (Measured) ABG Methemoglobin Jake Test ABG Potassium A-a O2 Difference Respiratory Index Hgb O2 Saturation Glucose Lactate Vent Mode Mechanical Rate FiO2 Tidal Volume PEEP Crit Value Called To Crit Value Called By Crit Value Read Back Blood Gas Notified Time Sodium Potassium Chloride Carbon Dioxide Anion Gap BUN Creatinine Est GFR ( Amer) Est GFR (Non-Af Amer) POC Glucose (mg/dL) Random Glucose Lactic Acid Calcium Phosphorus Magnesium Total Bilirubin AST ALT Alkaline Phosphatase Total Creatine Kinase CK-MB (Mass) Troponin I Total Protein Albumin Globulin Albumin/Globulin Ratio Procalcitonin Free T4 Thyroxine (T4) TSH 3rd Generation Arterial Blood Potassium Urine Color Martha Urine Clarity Hazy Urine pH 5.0 Ur Specific [place] 1.057 H Urine Protein 1+ H Urine Glucose (UA) Normal Urine Ketones Negative Urine Blood 1+ H Urine Nitrate Negative Urine Bilirubin Negative Urine Urobilinogen Normal Ur Leukocyte Esterase Trace Urine WBC (Auto) 13 H Urine RBC (Auto) 14 H Ur Squamous Epith Cells 8 H Urine Bacteria Few H Stool Occult Blood 03/25/18 03/25/18 03/25/18 16:34 16:39 16:50 WBC RBC Hgb Hct MCV MCH MCHC RDW Plt Count MPV Neut % (Auto) Lymph % (Auto) Weld % (Auto) Eos % (Auto) Baso % (Auto) Neut # (Auto) Lymph # (Auto) Weld # (Auto) Eos # (Auto) Baso # (Auto) Neutrophils % (Manual) Band Neutrophils % Lymphocytes % (Manual) Monocytes % (Manual) Platelet Estimate RBC Morphology PT INR Puncture Site Lb pCO2 31 L pO2 500 H HCO3 17.2 L ABG pH 7.30 L ABG Total CO2 16.3 L ABG O2 Saturation 100.5 H ABG Base Excess -9.9 L ABG Hemoglobin 12.7 ABG Carboxyhemoglobin 1.7 H POC ABG HHb (Measured) -0.5 L ABG Methemoglobin 1.2 Jake Test Na ABG Potassium A-a O2 Difference 174.0 Respiratory Index 0.3 Hgb O2 Saturation 97.5 Glucose Lactate Vent Mode Prvc Mechanical Rate 14 FiO2 100.0 Tidal Volume 400 PEEP 5 Crit Value Called To Crit Value Called By Crit Value Read Back Blood Gas Notified Time Sodium 135 Potassium 4.9 Chloride 101 Carbon Dioxide 17 L Anion Gap 21 H BUN 32 H Creatinine 1.1 Est GFR ( Amer) 59 Est GFR (Non-Af Amer) 49 POC Glucose (mg/dL) Random Glucose < 20 L* D Lactic Acid 5.1 H* Calcium 8.4 L Phosphorus Magnesium Total Bilirubin 4.4 H AST 278 H D ALT 84 H D Alkaline Phosphatase 89 Total Creatine Kinase CK-MB (Mass) Troponin I Total Protein 6.4 Albumin 3.1 L Globulin 3.3 Albumin/Globulin Ratio 0.9 L Procalcitonin Free T4 Thyroxine (T4) TSH 3rd Generation Arterial Blood Potassium Urine Color Urine Clarity Urine pH Ur Specific [place] Urine Protein Urine Glucose (UA) Urine Ketones Urine Blood Urine Nitrate Urine Bilirubin Urine Urobilinogen Ur Leukocyte Esterase Urine WBC (Auto) Urine RBC (Auto) Ur Squamous Epith Cells Urine Bacteria Stool Occult Blood 03/25/18 03/25/18 03/25/18 17:44 18:07 20:40 WBC RBC Hgb Hct MCV MCH MCHC RDW Plt Count MPV Neut % (Auto) Lymph % (Auto) Weld % (Auto) Eos % (Auto) Baso % (Auto) Neut # (Auto) Lymph # (Auto) Weld # (Auto) Eos # (Auto) Baso # (Auto) Neutrophils % (Manual) Band Neutrophils % Lymphocytes % (Manual) Monocytes % (Manual) Platelet Estimate RBC Morphology PT INR Puncture Site Line pCO2 32 L pO2 49 L HCO3 14.0 L ABG pH 7.22 L ABG Total CO2 14.1 L ABG O2 Saturation 82.5 L ABG Base Excess -13.5 L ABG Hemoglobin 12.4 ABG Carboxyhemoglobin 2.1 H POC ABG HHb (Measured) 17.0 H ABG Methemoglobin 0.8 Jake Test Na ABG Potassium A-a O2 Difference 196.0 Respiratory Index 4.0 Hgb O2 Saturation 80.1 L Glucose Lactate Vent Mode Prvc Mechanical Rate 18 FiO2 40.0 Tidal Volume 400 PEEP 5 Crit Value Called To Crit Value Called By Crit Value Read Back Blood Gas Notified Time Sodium Potassium Chloride Carbon Dioxide Anion Gap BUN Creatinine Est GFR ( Amer) Est GFR (Non-Af Amer) POC Glucose (mg/dL) 136 H Random Glucose Lactic Acid Calcium Phosphorus Magnesium Total Bilirubin AST ALT Alkaline Phosphatase Total Creatine Kinase 854 H CK-MB (Mass) 5.47 H Troponin I 0.1050 Total Protein Albumin Globulin Albumin/Globulin Ratio Procalcitonin Free T4 Thyroxine (T4) 12.9 H TSH 3rd Generation Arterial Blood Potassium Urine Color Urine Clarity Urine pH Ur Specific [place] Urine Protein Urine Glucose (UA) Urine Ketones Urine Blood Urine Nitrate Urine Bilirubin Urine Urobilinogen Ur Leukocyte Esterase Urine WBC (Auto) Urine RBC (Auto) Ur Squamous Epith Cells Urine Bacteria Stool Occult Blood 03/25/18 03/25/18 03/25/18 20:42 20:42 20:42 WBC 8.8 RBC 4.13 Hgb 13.3 Hct 40.0 MCV 97.0 MCH 32.1 H MCHC 33.1 RDW 14.8 H Plt Count 67 L MPV 9.3 Neut % (Auto) 86.3 H Lymph % (Auto) 5.5 L Weld % (Auto) 6.8 Eos % (Auto) 0.7 Baso % (Auto) 0.7 Neut # (Auto) 7.6 H Lymph # (Auto) 0.5 L Weld # (Auto) 0.6 Eos # (Auto) 0.1 Baso # (Auto) 0.1 Neutrophils % (Manual) 92 H Band Neutrophils % 2 Lymphocytes % (Manual) 3 L Monocytes % (Manual) 3 Platelet Estimate Decreased L RBC Morphology Normal PT INR Puncture Site pCO2 pO2 HCO3 ABG pH ABG Total CO2 ABG O2 Saturation ABG Base Excess ABG Hemoglobin ABG Carboxyhemoglobin POC ABG HHb (Measured) ABG Methemoglobin Jake Test ABG Potassium A-a O2 Difference Respiratory Index Hgb O2 Saturation Glucose Lactate Vent Mode Mechanical Rate FiO2 Tidal Volume PEEP Crit Value Called To Crit Value Called By Crit Value Read Back Blood Gas Notified Time Sodium 137 Potassium 4.2 Chloride 102 Carbon Dioxide 12 L Anion Gap 27 H BUN 35 H Creatinine 1.4 H Est GFR ( Amer) 45 Est GFR (Non-Af Amer) 37 POC Glucose (mg/dL) Random Glucose 120 H Lactic Acid Calcium 7.6 L Phosphorus Magnesium Total Bilirubin 4.8 H AST 974 H D ALT 234 H D Alkaline Phosphatase 75 Total Creatine Kinase CK-MB (Mass) Troponin I Total Protein 5.8 L Albumin 2.7 L Globulin 3.0 Albumin/Globulin Ratio 0.9 L Procalcitonin 7.60 H Free T4 Thyroxine (T4) TSH 3rd Generation Arterial Blood Potassium Urine Color Urine Clarity Urine pH Ur Specific [place] Urine Protein Urine Glucose (UA) Urine Ketones Urine Blood Urine Nitrate Urine Bilirubin Urine Urobilinogen Ur Leukocyte Esterase Urine WBC (Auto) Urine RBC (Auto) Ur Squamous Epith Cells Urine Bacteria Stool Occult Blood 03/25/18 03/25/18 03/26/18 22:21 23:40 03:16 WBC RBC Hgb Hct MCV MCH MCHC RDW Plt Count MPV Neut % (Auto) Lymph % (Auto) Weld % (Auto) Eos % (Auto) Baso % (Auto) Neut # (Auto) Lymph # (Auto) Weld # (Auto) Eos # (Auto) Baso # (Auto) Neutrophils % (Manual) Band Neutrophils % Lymphocytes % (Manual) Monocytes % (Manual) Platelet Estimate RBC Morphology PT INR Puncture Site Lb pCO2 26 L pO2 198 H HCO3 13.6 L ABG pH 7.24 L ABG Total CO2 11.9 L ABG O2 Saturation 100.3 H ABG Base Excess -14.6 L ABG Hemoglobin ABG Carboxyhemoglobin POC ABG HHb (Measured) ABG Methemoglobin Jake Test Na ABG Potassium 4.0 A-a O2 Difference 55.0 Respiratory Index 0.3 Hgb O2 Saturation Glucose 77 Lactate 11.4 H* Vent Mode Prvc Mechanical Rate 18 FiO2 40.0 Tidal Volume 400 PEEP 5 Crit Value Called To Dr. gomez Crit Value Called By Pj mancuso Crit Value Read Back Y Blood Gas Notified Time 2225 Sodium 133.0 Potassium Chloride 99.0 Carbon Dioxide Anion Gap BUN Creatinine Est GFR ( Amer) Est GFR (Non-Af Amer) POC Glucose (mg/dL) 79 Random Glucose Lactic Acid Calcium Phosphorus Magnesium Total Bilirubin AST ALT Alkaline Phosphatase Total Creatine Kinase 3135 H CK-MB (Mass) 21.2 H Troponin I 0.1160 Total Protein Albumin Globulin Albumin/Globulin Ratio Procalcitonin Free T4 Thyroxine (T4) TSH 3rd Generation Arterial Blood Potassium 4.0 Urine Color Urine Clarity Urine pH Ur Specific [place] Urine Protein Urine Glucose (UA) Urine Ketones Urine Blood Urine Nitrate Urine Bilirubin Urine Urobilinogen Ur Leukocyte Esterase Urine WBC (Auto) Urine RBC (Auto) Ur Squamous Epith Cells Urine Bacteria Stool Occult Blood 03/26/18 03/26/18 03/26/18 04:25 05:03 05:06 WBC RBC Hgb Hct MCV MCH MCHC RDW Plt Count MPV Neut % (Auto) Lymph % (Auto) Weld % (Auto) Eos % (Auto) Baso % (Auto) Neut # (Auto) Lymph # (Auto) Weld # (Auto) Eos # (Auto) Baso # (Auto) Neutrophils % (Manual) Band Neutrophils % Lymphocytes % (Manual) Monocytes % (Manual) Platelet Estimate RBC Morphology PT INR Puncture Site Lb pCO2 27 L pO2 179 H HCO3 17.9 L ABG pH 7.35 ABG Total CO2 15.7 L ABG O2 Saturation 99.9 H ABG Base Excess -9.1 L ABG Hemoglobin ABG Carboxyhemoglobin POC ABG HHb (Measured) ABG Methemoglobin Jake Test Na ABG Potassium 4.0 A-a O2 Difference 72.0 Respiratory Index 0.4 Hgb O2 Saturation Glucose 52 L Lactate 12.1 H* Vent Mode Prvc Mechanical Rate 18 FiO2 40.0 Tidal Volume 400 PEEP 5 Crit Value Called To Nirmala karimi/rn Crit Value Called By Phil monge/rt Crit Value Read Back Y Blood Gas Notified Time 445 Sodium 134.0 Potassium Chloride 98.0 Carbon Dioxide Anion Gap BUN Creatinine Est GFR ( Amer) Est GFR (Non-Af Amer) POC Glucose (mg/dL) 60 L 62 L Random Glucose Lactic Acid Calcium Phosphorus Magnesium Total Bilirubin AST ALT Alkaline Phosphatase Total Creatine Kinase CK-MB (Mass) Troponin I Total Protein Albumin Globulin Albumin/Globulin Ratio Procalcitonin Free T4 Thyroxine (T4) TSH 3rd Generation Arterial Blood Potassium 4.0 Urine Color Urine Clarity Urine pH Ur Specific [place] Urine Protein Urine Glucose (UA) Urine Ketones Urine Blood Urine Nitrate Urine Bilirubin Urine Urobilinogen Ur Leukocyte Esterase Urine WBC (Auto) Urine RBC (Auto) Ur Squamous Epith Cells Urine Bacteria Stool Occult Blood 03/26/18 03/26/18 03/26/18 06:08 06:13 06:14 WBC 11.9 H RBC 4.02 Hgb 12.9 Hct 38.5 MCV 95.9 MCH 32.0 H MCHC 33.4 RDW 14.6 H Plt Count 82 L MPV 10.7 Neut % (Auto) 87.2 H Lymph % (Auto) 7.3 L Weld % (Auto) 5.3 Eos % (Auto) 0.1 Baso % (Auto) 0.1 Neut # (Auto) 10.4 H Lymph # (Auto) 0.9 L Weld # (Auto) 0.6 Eos # (Auto) 0.0 Baso # (Auto) 0.0 Neutrophils % (Manual) Band Neutrophils % Lymphocytes % (Manual) Monocytes % (Manual) Platelet Estimate RBC Morphology PT INR Puncture Site pCO2 pO2 HCO3 ABG pH ABG Total CO2 ABG O2 Saturation ABG Base Excess ABG Hemoglobin ABG Carboxyhemoglobin POC ABG HHb (Measured) ABG Methemoglobin Jake Test ABG Potassium A-a O2 Difference Respiratory Index Hgb O2 Saturation Glucose Lactate Vent Mode Mechanical Rate FiO2 Tidal Volume PEEP Crit Value Called To Crit Value Called By Crit Value Read Back Blood Gas Notified Time Sodium 140 Potassium 4.4 Chloride 98 Carbon Dioxide 16 L Anion Gap 30 H BUN 40 H Creatinine 1.7 H Est GFR ( Amer) 36 Est GFR (Non-Af Amer) 30 POC Glucose (mg/dL) Random Glucose 44 L Lactic Acid Calcium 7.1 L Phosphorus 7.4 H Magnesium 1.9 Total Bilirubin 5.4 H AST 1390 H ALT 361 H D Alkaline Phosphatase 70 Total Creatine Kinase CK-MB (Mass) Troponin I Total Protein 5.7 L Albumin 2.7 L Globulin 3.0 Albumin/Globulin Ratio 0.9 L Procalcitonin Free T4 Thyroxine (T4) 14.4 H TSH 3rd Generation < 0.02 L Arterial Blood Potassium Urine Color Urine Clarity Urine pH Ur Specific [place] Urine Protein Urine Glucose (UA) Urine Ketones Urine Blood Urine Nitrate Urine Bilirubin Urine Urobilinogen Ur Leukocyte Esterase Urine WBC (Auto) Urine RBC (Auto) Ur Squamous Epith Cells Urine Bacteria Stool Occult Blood Positive H 03/26/18 03/26/18 06:14 07:40 WBC RBC Hgb Hct MCV MCH MCHC RDW Plt Count MPV Neut % (Auto) Lymph % (Auto) Weld % (Auto) Eos % (Auto) Baso % (Auto) Neut # (Auto) Lymph # (Auto) Weld # (Auto) Eos # (Auto) Baso # (Auto) Neutrophils % (Manual) Band Neutrophils % Lymphocytes % (Manual) Monocytes % (Manual) Platelet Estimate RBC Morphology PT INR Puncture Site pCO2 pO2 HCO3 ABG pH ABG Total CO2 ABG O2 Saturation ABG Base Excess ABG Hemoglobin ABG Carboxyhemoglobin POC ABG HHb (Measured) ABG Methemoglobin Jake Test ABG Potassium A-a O2 Difference Respiratory Index Hgb O2 Saturation Glucose Lactate Vent Mode Mechanical Rate FiO2 Tidal Volume PEEP Crit Value Called To Crit Value Called By Crit Value Read Back Blood Gas Notified Time Sodium Potassium Chloride Carbon Dioxide Anion Gap BUN Creatinine Est GFR ( Amer) Est GFR (Non-Af Amer) POC Glucose (mg/dL) 130 H Random Glucose Lactic Acid Calcium Phosphorus Magnesium Total Bilirubin AST ALT Alkaline Phosphatase Total Creatine Kinase CK-MB (Mass) Troponin I Total Protein Albumin Globulin Albumin/Globulin Ratio Procalcitonin Free T4 > 6.99 H Thyroxine (T4) TSH 3rd Generation Arterial Blood Potassium Urine Color Urine Clarity Urine pH Ur Specific [place] Urine Protein Urine Glucose (UA) Urine Ketones Urine Blood Urine Nitrate Urine Bilirubin Urine Urobilinogen Ur Leukocyte Esterase Urine WBC (Auto) Urine RBC (Auto) Ur Squamous Epith Cells Urine Bacteria Stool Occult Blood - EKG Data EKG Interpreted by: Myself Assessment & Plan (1) Cardiomyopathy Assessment and Plan: 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 conservative therapy, recommend cardioselective beta fabienne. patient will misti need eventual Lifevest and further cardiac evaluation Status: Acute
[2018-03-26 08:22] LABS: LARGE PLATELETS PRESENT
--- NOTE | 2018-03-26 08:34 | RAD ---
HISTORY: s/p LEFT TLC COMPARISON: Chest radiograph performed approximately 3 hours prior FINDINGS: LUNGS: No active pulmonary disease. PLEURA: No significant pleural effusion identified, no pneumothorax apparent. CARDIOVASCULAR: Sclerotic aortic calcifications. Cardiomediastinal silhouette stably enlarged. OSSEOUS STRUCTURES: Unchanged. VISUALIZED UPPER ABDOMEN: Normal. OTHER FINDINGS: New left internal jugular access central venous catheter with tip in the distal left innominate vein. New enteric tube with tip in the stomach. Endotracheal tube, unchanged. IMPRESSION: New left internal jugular access central venous catheter and enteric tube in satisfactory position. No appreciable pneumothorax.
--- NOTE | 2018-03-26 08:49 | CP.PCM.PN ---
Subjective - Date & Time of Evaluation Date of Evaluation: 03/26/18 Time of Evaluation: 08:30 - Subjective Subjective: Patient was seen and examined. Again I spoke with patient's family member at bed side. We had a long discussion. As mentioned previously this is a 72 year old female who was just recently diagnosed with hyperthyroidism outpatient. The patient came in on 03/24 with severe uncontrolled diarrhea. She was feeling weak, tired, and reportedly palpitations. She has had weight loss for some time as well. There have been fevers as well. Her respirations and mental status became worse and she required intubation. The patient remains intubated at this time with two IV pressor medications Norepeinephrne as well as Vasopressin She is on also on NaBicarb ggt as well as IVF D10@ 50 at this moment The chest XRAY again reveals cardiomegaly, the lung greenfield looked ok. Her urine out put was 695cc. She had some fluid boluses last night. The T4 level increased. Checking also T3 and Free T3. The % bands this morning was 16, checking procalcitonin as well. She is already on Zosyn will give a one time dose of vancomycin. The blood cultures are negative for 24hrs, howevever the urine cultures are still pending. Objective - Vital Signs/Intake and Output Vital Signs (last 24 hours): Temp Pulse Resp BP Pulse Ox 100.1 F H 85 23 103/38 L 97 03/26/18 04:00 03/26/18 07:50 03/26/18 07:50 03/26/18 07:44 03/26/18 07:50 Intake and Output: 03/26/18 03/26/18 06:59 18:59 Intake Total 2524.5 189.9 Output Total 595 Balance 1929.5 189.9 - Medications Medications: Current Medications Acetaminophen (Tylenol 650mg/20.3ml Solution Ud) 650 mg PO Q4H PRN PRN Reason: Temperature above 100.6 Last Admin: 03/25/18 17:23 Dose: 650 mg Cholestyramine Resin (Prevalite) 4 gm PO Q8H NEREYDA Enoxaparin Sodium (Lovenox) 40 mg SC DAILY [facility] Last Admin: 03/25/18 12:33 Dose: 40 mg Famotidine (Pepcid) 20 mg PO BID [facility] Last Admin: 03/25/18 18:52 Dose: 20 mg Hydrocortisone Sodium Succinate (Solu-Cortef) 100 mg IV Q8H NEREYDA Piperacillin Sod/Tazobactam Sod (Zosyn 3.375 Gm Iv Premix) 3.375 gm in 50 mls @ 100 mls/hr IVPB Q8H NEREYDA PRN Reason: Protocol Last Admin: 03/26/18 01:22 Dose: 100 mls/hr Norepinephrine Bitartrate 4 mg (/ Dextrose) 254 mls @ 15.24 mls/hr IV .[id number] PRN; Protocol; 4 MCG/MIN PRN Reason: TITRATE PER MD ORDER Last Titration: 03/26/18 04:03 Dose: 9.84 mcg/min, 37.5 mls/hr Sodium Bicarbonate 150 meq/ (Sodium Chloride) 1,150 mls @ 150 mls/hr IV .[id number] NEREYDA Last Admin: 03/26/18 07:54 Dose: 150 mls/hr Vasopressin 40 units/ Sodium (Chloride) 42 mls @ 0.63 mls/hr IV .Q24H NEREYDA; 0.01 UNITS/MIN PRN Reason: Protocol Last Titration: 03/26/18 04:00 Dose: 0.03 units/min, 2.4 mls/hr Dextrose (Dextrose 10% In Water) 500 mls @ 50 mls/hr IV .Q10H [facility] Last Admin: 03/26/18 05:27 Dose: 50 mls/hr Methimazole (Tapazole) 10 mg PO TID [facility] Last Admin: 03/25/18 20:44 Dose: 10 mg Propranolol HCl (Inderal) 10 mg PO DAILY [facility] - Labs Labs: 03/26/18 06:13 03/26/18 06:14 PT 34.1 SECONDS (9.7-12.2) H* 03/25/18 16:34 INR 3.1 03/25/18 16:34 - Constitutional Appears: Toxic, Chronically Ill - ENT Exam ENT Exam: Mucous Membranes Dry - Neck Exam Additional comments: Central line. - Respiratory Exam Additional comments: Mechanical breath sounds - Cardiovascular Exam Cardiovascular Exam: REGULAR RHYTHM - GI/Abdominal Exam GI & Abdominal Exam: Soft, Normal Bowel Sounds. absent: Distended, Firm, Guarding, Rigid, Tenderness - Neurological Exam Neurological Exam: absent: Alert, Awake, Oriented x3 Additional comments: Mechanical intubation - Skin Skin Exam: Pallor, Warm Assessment and Plan - Assessment and Plan (Free Text) Assessment: 72 year old female with past medical history of recently diagnosed hyperthyroidism is admitted for intractable diarrhea, shortly thereafter developed respiratory distress and required intubation. There have been fevers as high as 104 and also rapid tachycardia. An echo was done showing severe hypokinesis and also low EF of 20%. She is also being covered with IV abx in case of infection as well. Thyroid Storm, elevated temperatures, rapid HR 03/26: Tmax was 100.1, HR are in the 80s at this time NSR at this moment. She is now on Hydrocortisone 100 mg IV Q8, Cholestramynine 4 via NGT to slow T4 to T3 coversion. Remains on methimazole, considering her situation may have to change to PTU 03/25: Discussed with endocrinology. Has recieved IV hydrocortosone 250 mg Patient has been given IV hydrocortisone as well increased dose of tapazole to Q8. Continue the propranolol now, has also received IV propranol Per discussion with family members the patient has only been recently diagnosed with hyperthyroidism Will continue the following medications and adjust accordingly: methimazole 10 mg Q8H, Inderall 10 QD Respiratory failure: Now intubated 03/26: The chest XRAY is clear. Appreciate cardiology evaluation. 03/25: Likley secondary from worsening cardiac function. EF is very low and hypokinesis seen on echo She now has a central line and also on pressor IV levophed as well as bicarb ggt. Hypoglycemia: 03/26: Overnight has had several low accuchecks - likley she has burned up a lot of her energy stores (fat/glycogen) because of the hyperthyroidism. She was placed on D10 overnight @ 50 Potential sepsis, cultures pending 03/26: Last night was on Zosyn. The bands this morning increased to 16, added vancomycin x 1. Blood cultures negative 24 hrs, urine culture pending, the CXRAY does not have infiltrates Intractable diarrhea - secondary to hyperthyroidism Dehydration Dizziness Likely secondary to hyperthyroidism Will check stool studies for stool leukocytes, cultures, c diff and electrolytes Once stool studies negative for infective cause, will place on Imodium for relief Liver Lesion Incidental finding on CT. 5mm small lesion. If low risk of malignancy, no further follow up necessary. If high risk, recommended follow up CT or MRI in 6- 12 months. 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 Recommended follow up abdominal MRI in 6-12 months.
[2018-03-26] MEDS: Cholestyramine 4 gm/5.5 gm UD Packet PO SCH ×3 (09:00→16:58)
[2018-03-26] MEDS ORDERED: Vancomycin 1 gm/NS 200 ml 1 GM/200 ML BAG IVPB ONE (09:08)
[2018-03-26] MEDS: Enoxaparin 40 mg Syringe SC SCH (09:12)
--- NOTE | 2018-03-26 09:29 | RAD ---
HISTORY: vented COMPARISON: Chest radiograph dated 03/25/2018 FINDINGS: LUNGS: No active pulmonary disease. PLEURA: No significant pleural effusion identified, no pneumothorax apparent. CARDIOVASCULAR: Sclerotic calcifications. Cardiomediastinal silhouette stably enlarged. OSSEOUS STRUCTURES: Unchanged. VISUALIZED UPPER ABDOMEN: Normal. OTHER FINDINGS: Endotracheal, enteric tubes, unchanged. Left internal jugular access central venous catheter, unchanged. IMPRESSION: Stable tubes and lines. No significant interval.
[2018-03-26 09:54] LABS: T3 6.42 nmol/L (1.49-2.60)
[2018-03-26] MEDS ORDERED: Sodium Chloride 0.9% 500 ML IV ONE ×2 (10:16→10:45)
--- NOTE | 2018-03-26 10:46 | CON ---
DATE: LOCATION: ICU, room 17. HISTORY OF PRESENT ILLNESS: This is a 72-year-old female with recent diagnosis of hyperthyroidism and started on medical therapy, presenting here with intractable nausea, vomiting, and diarrhea and is being referred now for endocrine evaluation and management. She was actually evaluated of possible acute cholecystitis with ultrasound evidence of gallstone as noted. However, the HIDA scan was done and was reported as negative at this time. Moreover, she has developed febrile episode with progressive desaturation and hypoxemia and was eventually intubated tonight as noted. PAST MEDICAL HISTORY: As mentioned above, she was initially diagnosed about two weeks ago by Dr. 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 She was also given propranolol medication as noted. FAMILY HISTORY: Positive for hypertension and heart disease. SOCIAL HISTORY: The patient has a supportive family and is a current smoker for the last 50 years or so since her early adulthood. REVIEW OF SYSTEMS: As mentioned above, admits to generalized body weakness with episodic bouts of weakness and lightheadedness, worsened on the day of admission. Also admits to insomnia and obstructive sleep patterns with occasional bifrontal headaches. No visual changes noted otherwise. Bouts of palpitations and shortness of breath, especially on exertion. Her oral intake has been variable with nausea, dyspepsia, 05:20 vomiting episodes followed by loose watery diarrhea and vague and diffuse abdominal pain as noted. Admits episodic bouts of lower extremity paresthesias as well as edema as noted. PHYSICAL EXAMINATION GENERAL: This is an female. VITAL SIGNS: Currently endotracheally intubated with a blood pressure of 100/60, pulse of 110 beats per minute and regular, temperature initially was 100.1, respirations as per ventilator parameters. Height is 5 feet 2 inches, weight is 96 pounds. HEENT: Head is normocephalic. Eyes anicteric with pink conjunctivae. Funduscopy not possible at this time. Ears, nose, and throat otherwise normal. NECK: Supple. Thyroid gland shows nodular thyromegaly which is firm and nontender with no overt thyroid bruits nor any palpable cervical adenopathy nor any palpable thyroid nodule. HEART: Hyperdynamic precardium. S1 and S2 are rapid and regular. LUNGS: Show scattered rhonchi. ABDOMEN: Flat, soft with positive bowel sounds. EXTREMITIES: No peripheral edema. Pulses are +2 bilaterally. LABORATORY DATA: WBC is 8.8, hemoglobin of 13, hematocrit of 40, MCV of 97, platelets of 67,000. Chemistries showed a BUN of 32, sodium 135, potassium 4.9, chloride 101, CO2 of 17. Glucose was reported as less than 20 which is just prior to intubation and creatinine is 1.1. The previous glucose level was 91 mg/dL. Creatine kinase is 854. Troponin is 0.10. The initial thyroxine level is 13.8 with a TSH of less than 0.02 and subsequent T4 was 12.9 mcg/dL with a TSH of less than 0.02. ASSESSMENT: This is a 72-year-old female with early overt hyperthyroidism, on medical therapy prior to this admission with possible autoimmune thyroiditis and nodular goiter, presenting here with acute gastroenteritis like syndrome and possible acute cholecystitis with rapid deterioration to acute respiratory failure, currently endotracheally intubated at this time. With highly doubt the possibility of a thyroid storm which was brought into a diagnostic possibility today as noted. With the mildly elevated thyroxine levels and recent initiation of medical therapy with thiourea and beta-adrenergic blockade, the possibility of the aforementioned thyroid crisis is quite unlikely at this time. She has sinus tachycardia which is expected with physical stressors as noted. Moreover, an echocardiogram done today showed the possibility of dilated cardiomyopathy with extremely low ejection fraction as noted which is not uncommon in patients with hyperthyroidism and cardiac decompensation and congestive heart failure. PLAN OF MANAGEMENT: We will titrate to higher dosing her medical therapy with Tapazole given as 10 mg every 8 hours as discussed with the hospitalist today. We will continue the propranolol medications as ordered and obtain a comprehensive thyroid hormonal profile was given and ordered. We will add thyroid antibodies with thyroid-stimulating immunoglobulin and thyroid peroxidase antibody which will confirm the presence of underlying thyroid autoimmunity. The theater technician started her empirically on hydrocortisone medications as noted. We will obtain serial chemistries and supplement accordingly as needed. We will follow. Ani House MD
[2018-03-26 12:36] LABS: C DIFF TOXIN A B NEGATIVE (NEGATIVE)
[2018-03-26] MEDS ORDERED: Enoxaparin 30 mg Syringe SC SCH (13:13)
--- NOTE | 2018-03-26 14:24 | CP.CCUPN ---
"<Blanca Carmen - Last Filed: 03/26/18 14:21> CCU Subjective - Physician Review Subjective (Free Text): Patient seen and examined at bedside. No overnight events reported. Patient currently on Ventilator. GCS currently 3T. CCU Objective - Vital Signs / Intake & Output Vital Signs (Last 4 hours): Vital Signs Temp Pulse Resp BP Pulse Ox 03/26/18 13:50 113/42 L 03/26/18 13:30 88 24 98 03/26/18 13:20 87 23 98 03/26/18 13:14 87 24 104/36 L 98 03/26/18 13:10 87 24 98 03/26/18 13:00 85 23 98 03/26/18 12:50 84 23 97 03/26/18 12:44 84 23 109/39 L 97 03/26/18 12:25 83 23 97 03/26/18 12:00 98.9 F 03/26/18 11:50 79 20 97 03/26/18 11:44 78 21 91/37 L 98 03/26/18 11:40 78 22 97 03/26/18 11:30 78 20 98 03/26/18 11:20 78 22 97 03/26/18 11:18 92/32 L 03/26/18 11:14 78 22 89/28 L 97 03/26/18 11:10 78 20 97 03/26/18 11:00 82 16 99 03/26/18 10:50 84 22 98 03/26/18 10:44 85 23 100/40 L 97 03/26/18 10:40 86 20 97 03/26/18 10:30 85 22 97 03/26/18 10:28 85 22 102/34 L 97 03/26/18 10:24 85/34 L Intake and Output (Last 8hrs): Intake & Output 03/25/18 03/26/18 03/26/18 22:59 06:59 14:59 Intake Total 1459.0 1930.5 2539.3 Output Total 510 185 200 Balance 949.0 1745.5 2339.3 Weight 98 lb Intake: IV 9 296.0 245 Intake, IV Amount 1390.0 1634.5 2294.3 Left Distal Port Internal 90.0 322.5 277.5 Jugular Left Medial Port Internal 50 50 750 Jugular Left Proximal Port 400 1200 1050 Internal Jugular Right Antecubital 850 left distal port y 12.0 16.8 left proximal port y 50 200 Oral 0 Other 60 Output: Urine 510 185 200 Urethral (Garcia) 510 185 200 Other: # Bowel Movements 1 - Physical Exam Head: Positive for: Atraumatic Pupils: Positive for: PERRL, Sluggish Conjunctiva: Positive for: Normal Mouth: Positive for: Dry Respiratory/Chest: Positive for: Clear to Auscultation Cardiovascular: Positive for: Regular Rate and Rhythm, Normal S1, S2. Negative for: Tachycardic Abdomen: Positive for: Normal Bowel Sounds. Negative for: Distention Neurological: Negative for: GCS=15 (GCS=3T) Skin: Positive for: Warm, Dry Psychiatric: Negative for: Alert, Oriented x 3 - Medications Active Medications: Active Medications Generic Name Dose Route Start Last Admin Trade Name Freq PRN Reason Stop Dose Admin Acetaminophen 650 mg 03/25/18 16:30 03/25/18 17:23 Tylenol 650mg/20.3ml Solution Ud PO 650 mg Q4H PRN Administration Temperature above 100.6 Cholestyramine Resin 4 gm 03/26/18 08:15 03/26/18 09:00 Prevalite PO 4 gm Q8H NEREYDA Administration Enoxaparin Sodium 30 mg 03/26/18 13:13 Lovenox SC DAILY NEREYDA Famotidine 20 mg 03/25/18 10:00 03/26/18 09:12 Pepcid PO 20 mg BID NEREYDA Administration Hydrocortisone Sodium Succinate 100 mg 03/26/18 08:00 03/26/18 09:13 Solu-Cortef IV 100 mg Q8H NEREYDA Administration Piperacillin Sod/Tazobactam Sod 3.375 gm in 50 mls @ 100 mls/hr 03/25/18 18: 00 03/26/18 09:30 Zosyn 3.375 Gm Iv Premix IVPB 100 mls/hr Q8H NEREYDA Administration Protocol Norepinephrine Bitartrate 4 mg 254 mls @ 15.24 mls/hr 03/25/18 17:51 10:24 / Dextrose IV 9.84 mcg/min .[id number] PRN 37.5 mls/hr TITRATE PER MD ORDER Administration Protocol 4 MCG/MIN Sodium Bicarbonate 150 meq/ 1,150 mls @ 150 mls/hr 03/25/18 22:30 03/26/18 07 :54 Sodium Chloride IV 150 mls/hr .[id number] NEREYDA Administration Vasopressin 40 units/ Sodium 42 mls @ 0.63 mls/hr 03/26/18 00:15 03/26/18 13: 50 Chloride IV 0.03 units/min .Q24H NEREYDA 2.4 mls/hr Protocol Administration 0.01 UNITS/MIN Dextrose 500 mls @ 50 mls/hr 03/26/18 05:15 03/26/18 05:27 Dextrose 10% In Water IV 50 mls/hr .Q10H NEREYDA Administration Propranolol HCl 10 mg 03/26/18 10:00 03/26/18 09:12 Inderal PO 10 mg DAILY NEREYDA Administration Propylthiouracil 100 mg 03/26/18 13:30 03/26/18 13:40 Propylthiouracil PO 100 mg Q6 NEREYDA Administration - Patient Studies Lab Studies: Microbiology Studies 03/24/18 20:46 Blood Culture - Preliminary Blood NO GROWTH AFTER 24 HOURS 03/24/18 20:46 Blood Culture - Preliminary Blood NO GROWTH AFTER 24 HOURS Lab Studies 03/26/18 03/26/18 03/26/18 Range/Units 11:36 08:54 08:54 WBC (4.8-10.8) K/uL RBC (3.80-5.20) Mil/uL Hgb (11.0-16.0) g/dL Hct (34.0-47.0) % MCV (81.0-99.0) fL MCH (27.0-31.0) pg MCHC (33.0-37.0) g/dL RDW (11.5-14.5) % Plt Count (130-400) K/uL MPV (7.2-11.7) fL Neut % (Auto) (50.0-75.0) % Lymph % (Auto) (20.0-40.0) % [place] % (Auto) (0.0-10.0) % Eos % (Auto) (0.0-4.0) % Baso % (Auto) (0.0-2.0) % Neut # (Auto) (1.8-7.0) K/uL Lymph # (Auto) (1.0-4.3) K/uL [place] # (Auto) (0.0-0.8) K/uL Eos # (Auto) (0.0-0.7) K/uL Baso # (Auto) (0.0-0.2) K/uL Neutrophils % (Manual) (50-75) % Band Neutrophils % (0-2) % Lymphocytes % (Manual) (20-40) % Monocytes % (Manual) (0-10) % Toxic Granulation Platelet Estimate (NORMAL) Large Platelets RBC Morphology Poikilocytosis (manual Ovalocytes [place] Cells PT (9.7-12.2) SECONDS INR Puncture Site pCO2 (35-45) mm/Hg pO2 (80-100) mm/Hg HCO3 (21-28) mmol/L ABG pH (7.35-7.45) ABG Total CO2 (22-28) mmol/L ABG O2 Saturation (95-98) % ABG Base Excess (-2.0-3.0) mmol/L ABG Hemoglobin (11.7-17.4) g/dL ABG Carboxyhemoglobin (0.5-1.5) % POC ABG HHb (Measured) (0.0-5.0) % ABG Methemoglobin (0.0-3.0) % Jake Test ABG Potassium (3.6-5.2) mmol/L A-a O2 Difference mm/Hg Respiratory Index Hgb O2 Saturation (95.0-98.0) % Glucose (65-105) mg/dl Lactate (0.7-2.1) mmol/L Vent Mode Mechanical Rate FiO2 % Tidal Volume PEEP Crit Value Called To Crit Value Called By Crit Value Read Back Blood Gas Notified Time Sodium (132-148) mmol/L Potassium (3.6-5.2) mmol/L Chloride (98-107) mmol/L Carbon Dioxide (22-30) mmol/L Anion Gap (10-20) BUN (7-17) mg/dL Creatinine (0.7-1.2) mg/dL Est GFR ( Amer) Est GFR (Non-Af Amer) POC Glucose (mg/dL) 201 H (65-110) mg/dL Random Glucose (65-105) mg/dL Lactic Acid (0.7-2.1) mmol/L Calcium (8.6-10.4) mg/dl Phosphorus (2.5-4.5) mg/dL Magnesium (1.6-2.3) mg/dL Total Bilirubin (0.2-1.3) mg/dL AST (14-36) U/L ALT (9-52) U/L Alkaline Phosphatase (38-126) U/L Total Creatine Kinase (30-135) U/L CK-MB (Mass) (0.0-3.38) ng/mL Troponin I (0.00-0.120) ng/mL Total Protein (6.3-8.3) g/dL Albumin (3.5-5.0) g/dL Globulin (2.2-3.9) gm/dL Albumin/Globulin Ratio (1.0-2.1) Procalcitonin 8.51 H (0.19-0.49) NG/ML Free T4 (0.78-2.19) ng/dL Thyroxine (T4) (5.5-11.0) ug/dL Free T3 pg/mL > 22.80 H (2.77-5.27) pg/mL Total T3 6.42 H (1.49-2.60) nmol/L TSH 3rd Generation (0.46-4.68) mIU/L Cortisol AM Sample (4.46-22.7) ug/dL Arterial Blood Potassium (3.6-5.2) mmol/L Urine Color (YELLOW) Urine Clarity (Clear) Urine pH (5.0-8.0) Ur Specific [place] (1.003-1.030) Urine Protein (NEGATIVE) mg/dL Urine Glucose (UA) (Normal) mg/dL Urine Ketones (NEGATIVE) mg/dL Urine Blood (NEGATIVE) Urine Nitrate (NEGATIVE) Urine Bilirubin (NEGATIVE) Urine Urobilinogen (0.2-1.0) mg/dL Ur Leukocyte Esterase (Negative) [place]/uL Urine WBC (Auto) (0-5) /hpf Urine RBC (Auto) (0-3) /hpf Ur Squamous Epith Cells (0-5) /hpf Urine Bacteria (<OCC) Stool Occult Blood (NEGATIVE) C. difficile Ag & Toxin (NEGATIVE) 03/26/18 03/26/18 03/26/18 Range/Units 07:40 06:14 06:14 WBC (4.8-10.8) K/uL RBC (3.80-5.20) Mil/uL Hgb (11.0-16.0) g/dL Hct (34.0-47.0) % MCV (81.0-99.0) fL MCH (27.0-31.0) pg MCHC (33.0-37.0) g/dL RDW (11.5-14.5) % Plt Count (130-400) K/uL MPV (7.2-11.7) fL Neut % (Auto) (50.0-75.0) % Lymph % (Auto) (20.0-40.0) % [place] % (Auto) (0.0-10.0) % Eos % (Auto) (0.0-4.0) % Baso % (Auto) (0.0-2.0) % Neut # (Auto) (1.8-7.0) K/uL Lymph # (Auto) (1.0-4.3) K/uL [place] # (Auto) (0.0-0.8) K/uL Eos # (Auto) (0.0-0.7) K/uL Baso # (Auto) (0.0-0.2) K/uL Neutrophils % (Manual) (50-75) % Band Neutrophils % (0-2) % Lymphocytes % (Manual) (20-40) % Monocytes % (Manual) (0-10) % Toxic Granulation Platelet Estimate (NORMAL) Large Platelets RBC Morphology Poikilocytosis (manual Ovalocytes [place] Cells PT (9.7-12.2) SECONDS INR Puncture Site pCO2 (35-45) mm/Hg pO2 (80-100) mm/Hg HCO3 (21-28) mmol/L ABG pH (7.35-7.45) ABG Total CO2 (22-28) mmol/L ABG O2 Saturation (95-98) % ABG Base Excess (-2.0-3.0) mmol/L ABG Hemoglobin (11.7-17.4) g/dL ABG Carboxyhemoglobin (0.5-1.5) % POC ABG HHb (Measured) (0.0-5.0) % ABG Methemoglobin (0.0-3.0) % Jake Test ABG Potassium (3.6-5.2) mmol/L A-a O2 Difference mm/Hg Respiratory Index Hgb O2 Saturation (95.0-98.0) % Glucose (65-105) mg/dl Lactate (0.7-2.1) mmol/L Vent Mode Mechanical Rate FiO2 % Tidal Volume PEEP Crit Value Called To Crit Value Called By Crit Value Read Back Blood Gas Notified Time Sodium (132-148) mmol/L Potassium (3.6-5.2) mmol/L Chloride (98-107) mmol/L Carbon Dioxide (22-30) mmol/L Anion Gap (10-20) BUN (7-17) mg/dL Creatinine (0.7-1.2) mg/dL Est GFR ( Amer) Est GFR (Non-Af Amer) POC Glucose (mg/dL) 130 H (65-110) mg/dL Random Glucose (65-105) mg/dL Lactic Acid (0.7-2.1) mmol/L Calcium (8.6-10.4) mg/dl Phosphorus (2.5-4.5) mg/dL Magnesium (1.6-2.3) mg/dL Total Bilirubin (0.2-1.3) mg/dL AST (14-36) U/L ALT (9-52) U/L Alkaline Phosphatase (38-126) U/L Total Creatine Kinase (30-135) U/L CK-MB (Mass) (0.0-3.38) ng/mL Troponin I (0.00-0.120) ng/mL Total Protein (6.3-8.3) g/dL Albumin (3.5-5.0) g/dL Globulin (2.2-3.9) gm/dL Albumin/Globulin Ratio (1.0-2.1) Procalcitonin (0.19-0.49) NG/ML Free T4 > 6.99 H (0.78-2.19) ng/dL Thyroxine (T4) (5.5-11.0) ug/dL Free T3 pg/mL (2.77-5.27) pg/mL Total T3 (1.49-2.60) nmol/L TSH 3rd Generation (0.46-4.68) mIU/L Cortisol AM Sample > 616.0 H (4.46-22.7) ug/dL Arterial Blood Potassium (3.6-5.2) mmol/L Urine Color (YELLOW) Urine Clarity (Clear) Urine pH (5.0-8.0) Ur Specific [place] (1.003-1.030) Urine Protein (NEGATIVE) mg/dL Urine Glucose (UA) (Normal) mg/dL Urine Ketones (NEGATIVE) mg/dL Urine Blood (NEGATIVE) Urine Nitrate (NEGATIVE) Urine Bilirubin (NEGATIVE) Urine Urobilinogen (0.2-1.0) mg/dL Ur Leukocyte Esterase (Negative) [place]/uL Urine WBC (Auto) (0-5) /hpf Urine RBC (Auto) (0-3) /hpf Ur Squamous Epith Cells (0-5) /hpf Urine Bacteria (<OCC) Stool Occult Blood (NEGATIVE) C. difficile Ag & Toxin (NEGATIVE) 03/26/18 03/26/18 03/26/18 Range/Units 06:14 06:13 06:08 WBC 11.9 H (4.8-10.8) K/uL RBC 4.02 (3.80-5.20) Mil/uL Hgb 12.9 (11.0-16.0) g/dL Hct 38.5 (34.0-47.0) % MCV 95.9 (81.0-99.0) fL MCH 32.0 H (27.0-31.0) pg MCHC 33.4 (33.0-37.0) g/dL RDW 14.6 H (11.5-14.5) % Plt Count 82 L (130-400) K/uL MPV 10.7 (7.2-11.7) fL Neut % (Auto) 87.2 H (50.0-75.0) % Lymph % (Auto) 7.3 L (20.0-40.0) % [place] % (Auto) 5.3 (0.0-10.0) % Eos % (Auto) 0.1 (0.0-4.0) % Baso % (Auto) 0.1 (0.0-2.0) % Neut # (Auto) 10.4 H (1.8-7.0) K/uL Lymph # (Auto) 0.9 L (1.0-4.3) K/uL [place] # (Auto) 0.6 (0.0-0.8) K/uL Eos # (Auto) 0.0 (0.0-0.7) K/uL Baso # (Auto) 0.0 (0.0-0.2) K/uL Neutrophils % (Manual) 72 (50-75) % Band Neutrophils % 16 H* (0-2) % Lymphocytes % (Manual) 7 L (20-40) % Monocytes % (Manual) 5 (0-10) % Toxic Granulation Present Platelet Estimate Decreased L (NORMAL) Large Platelets Present RBC Morphology Poikilocytosis (manual Slight Ovalocytes Slight Jeff Cells Slight PT (9.7-12.2) SECONDS INR Puncture Site pCO2 (35-45) mm/Hg pO2 (80-100) mm/Hg HCO3 (21-28) mmol/L ABG pH (7.35-7.45) ABG Total CO2 (22-28) mmol/L ABG O2 Saturation (95-98) % ABG Base Excess (-2.0-3.0) mmol/L ABG Hemoglobin (11.7-17.4) g/dL ABG Carboxyhemoglobin (0.5-1.5) % POC ABG HHb (Measured) (0.0-5.0) % ABG Methemoglobin (0.0-3.0) % Jake Test ABG Potassium (3.6-5.2) mmol/L A-a O2 Difference mm/Hg Respiratory Index Hgb O2 Saturation (95.0-98.0) % Glucose (65-105) mg/dl Lactate (0.7-2.1) mmol/L Vent Mode Mechanical Rate FiO2 % Tidal Volume PEEP Crit Value Called To Crit Value Called By Crit Value Read Back Blood Gas Notified Time Sodium 140 (132-148) mmol/L Potassium 4.4 (3.6-5.2) mmol/L Chloride 98 (98-107) mmol/L Carbon Dioxide 16 L (22-30) mmol/L Anion Gap 30 H (10-20) BUN 40 H (7-17) mg/dL Creatinine 1.7 H (0.7-1.2) mg/dL Est GFR ( Amer) 36 Est GFR (Non-Af Amer) 30 POC Glucose (mg/dL) (65-110) mg/dL Random Glucose 44 L (65-105) mg/dL Lactic Acid (0.7-2.1) mmol/L Calcium 7.1 L (8.6-10.4) mg/dl Phosphorus 7.4 H (2.5-4.5) mg/dL Magnesium 1.9 (1.6-2.3) mg/dL Total Bilirubin 5.4 H (0.2-1.3) mg/dL AST 1390 H (14-36) U/L ALT 361 H D (9-52) U/L Alkaline Phosphatase 70 (38-126) U/L Total Creatine Kinase (30-135) U/L CK-MB (Mass) (0.0-3.38) ng/mL Troponin I (0.00-0.120) ng/mL Total Protein 5.7 L (6.3-8.3) g/dL Albumin 2.7 L (3.5-5.0) g/dL Globulin 3.0 (2.2-3.9) gm/dL Albumin/Globulin Ratio 0.9 L (1.0-2.1) Procalcitonin (0.19-0.49) NG/ML Free T4 (0.78-2.19) ng/dL Thyroxine (T4) 14.4 H (5.5-11.0) ug/dL Free T3 pg/mL (2.77-5.27) pg/mL Total T3 (1.49-2.60) nmol/L TSH 3rd Generation < 0.02 L (0.46-4.68) mIU/L Cortisol AM Sample (4.46-22.7) ug/dL Arterial Blood Potassium (3.6-5.2) mmol/L Urine Color (YELLOW) Urine Clarity (Clear) Urine pH (5.0-8.0) Ur Specific [place] (1.003-1.030) Urine Protein (NEGATIVE) mg/dL Urine Glucose (UA) (Normal) mg/dL Urine Ketones (NEGATIVE) mg/dL Urine Blood (NEGATIVE) Urine Nitrate (NEGATIVE) Urine Bilirubin (NEGATIVE) Urine Urobilinogen (0.2-1.0) mg/dL Ur Leukocyte Esterase (Negative) [place]/uL Urine WBC (Auto) (0-5) /hpf Urine RBC (Auto) (0-3) /hpf Ur Squamous Epith Cells (0-5) /hpf Urine Bacteria (<OCC) Stool Occult Blood Positive H (NEGATIVE) C. difficile Ag & Toxin (NEGATIVE) 03/26/18 03/26/18 03/26/18 Range/Units 05:06 05:03 04:25 WBC (4.8-10.8) K/uL RBC (3.80-5.20) Mil/uL Hgb (11.0-16.0) g/dL Hct (34.0-47.0) % MCV (81.0-99.0) fL MCH (27.0-31.0) pg MCHC (33.0-37.0) g/dL RDW (11.5-14.5) % Plt Count (130-400) K/uL MPV (7.2-11.7) fL Neut % (Auto) (50.0-75.0) % Lymph % (Auto) (20.0-40.0) % [place] % (Auto) (0.0-10.0) % Eos % (Auto) (0.0-4.0) % Baso % (Auto) (0.0-2.0) % Neut # (Auto) (1.8-7.0) K/uL Lymph # (Auto) (1.0-4.3) K/uL [place] # (Auto) (0.0-0.8) K/uL Eos # (Auto) (0.0-0.7) K/uL Baso # (Auto) (0.0-0.2) K/uL Neutrophils % (Manual) (50-75) % Band Neutrophils % (0-2) % Lymphocytes % (Manual) (20-40) % Monocytes % (Manual) (0-10) % Toxic Granulation Platelet Estimate (NORMAL) Large Platelets RBC Morphology Poikilocytosis (manual Ovalocytes [place] Cells PT (9.7-12.2) SECONDS INR Puncture Site Lb pCO2 27 L (35-45) mm/Hg pO2 179 H (80-100) mm/Hg HCO3 17.9 L (21-28) mmol/L ABG pH 7.35 (7.35-7.45) ABG Total CO2 15.7 L (22-28) mmol/L ABG O2 Saturation 99.9 H (95-98) % ABG Base Excess -9.1 L (-2.0-3.0) mmol/L ABG Hemoglobin (11.7-17.4) g/dL ABG Carboxyhemoglobin (0.5-1.5) % POC ABG HHb (Measured) (0.0-5.0) % ABG Methemoglobin (0.0-3.0) % Jake Test Na ABG Potassium 4.0 (3.6-5.2) mmol/L A-a O2 Difference 72.0 mm/Hg Respiratory Index 0.4 Hgb O2 Saturation (95.0-98.0) % Glucose 52 L (65-105) mg/dl Lactate 12.1 H* (0.7-2.1) mmol/L Vent Mode Prvc Mechanical Rate 18 FiO2 40.0 % Tidal Volume 400 PEEP 5 Crit Value Called To Nirmala karimi/rn Crit Value Called By Phil monge/rt Crit Value Read Back Y Blood Gas Notified Time 445 Sodium 134.0 (132-148) mmol/L Potassium (3.6-5.2) mmol/L Chloride 98.0 (98-107) mmol/L Carbon Dioxide (22-30) mmol/L Anion Gap (10-20) BUN (7-17) mg/dL Creatinine (0.7-1.2) mg/dL Est GFR ( Amer) Est GFR (Non-Af Amer) POC Glucose (mg/dL) 62 L 60 L (65-110) mg/dL Random Glucose (65-105) mg/dL Lactic Acid (0.7-2.1) mmol/L Calcium (8.6-10.4) mg/dl Phosphorus (2.5-4.5) mg/dL Magnesium (1.6-2.3) mg/dL Total Bilirubin (0.2-1.3) mg/dL AST (14-36) U/L ALT (9-52) U/L Alkaline Phosphatase (38-126) U/L Total Creatine Kinase (30-135) U/L CK-MB (Mass) (0.0-3.38) ng/mL Troponin I (0.00-0.120) ng/mL Total Protein (6.3-8.3) g/dL Albumin (3.5-5.0) g/dL Globulin (2.2-3.9) gm/dL Albumin/Globulin Ratio (1.0-2.1) Procalcitonin (0.19-0.49) NG/ML Free T4 (0.78-2.19) ng/dL Thyroxine (T4) (5.5-11.0) ug/dL Free T3 pg/mL (2.77-5.27) pg/mL Total T3 (1.49-2.60) nmol/L TSH 3rd Generation (0.46-4.68) mIU/L Cortisol AM Sample (4.46-22.7) ug/dL Arterial Blood Potassium 4.0 (3.6-5.2) mmol/L Urine Color (YELLOW) Urine Clarity (Clear) Urine pH (5.0-8.0) Ur Specific [place] (1.003-1.030) Urine Protein (NEGATIVE) mg/dL Urine Glucose (UA) (Normal) mg/dL Urine Ketones (NEGATIVE) mg/dL Urine Blood (NEGATIVE) Urine Nitrate (NEGATIVE) Urine Bilirubin (NEGATIVE) Urine Urobilinogen (0.2-1.0) mg/dL Ur Leukocyte Esterase (Negative) Isabel[place]/uL Urine WBC (Auto) (0-5) /hpf Urine RBC (Auto) (0-3) /hpf Ur Squamous Epith Cells (0-5) /hpf Urine Bacteria (<OCC) Stool Occult Blood (NEGATIVE) C. difficile Ag & Toxin (NEGATIVE) 03/26/18 03/25/18 03/25/18 Range/Units 03:16 23:40 22:21 WBC (4.8-10.8) K/uL RBC (3.80-5.20) Mil/uL Hgb (11.0-16.0) g/dL Hct (34.0-47.0) % MCV (81.0-99.0) fL MCH (27.0-31.0) pg MCHC (33.0-37.0) g/dL RDW (11.5-14.5) % Plt Count (130-400) K/uL MPV (7.2-11.7) fL Neut % (Auto) (50.0-75.0) % Lymph % (Auto) (20.0-40.0) % [place] % (Auto) (0.0-10.0) % Eos % (Auto) (0.0-4.0) % Baso % (Auto) (0.0-2.0) % Neut # (Auto) (1.8-7.0) K/uL Lymph # (Auto) (1.0-4.3) K/uL [place] # (Auto) (0.0-0.8) K/uL Eos # (Auto) (0.0-0.7) K/uL Baso # (Auto) (0.0-0.2) K/uL Neutrophils % (Manual) (50-75) % Band Neutrophils % (0-2) % Lymphocytes % (Manual) (20-40) % Monocytes % (Manual) (0-10) % Toxic Granulation Platelet Estimate (NORMAL) Large Platelets RBC Morphology Poikilocytosis (manual Ovalocytes [place] Cells PT (9.7-12.2) SECONDS INR Puncture Site Lb pCO2 26 L (35-45) mm/Hg pO2 198 H (80-100) mm/Hg HCO3 13.6 L (21-28) mmol/L ABG pH 7.24 L (7.35-7.45) ABG Total CO2 11.9 L (22-28) mmol/L ABG O2 Saturation 100.3 H (95-98) % ABG Base Excess -14.6 L (-2.0-3.0) mmol/L ABG Hemoglobin (11.7-17.4) g/dL ABG Carboxyhemoglobin (0.5-1.5) % POC ABG HHb (Measured) (0.0-5.0) % ABG Methemoglobin (0.0-3.0) % Jake Test Na ABG Potassium 4.0 (3.6-5.2) mmol/L A-a O2 Difference 55.0 mm/Hg Respiratory Index 0.3 Hgb O2 Saturation (95.0-98.0) % Glucose 77 (65-105) mg/dl Lactate 11.4 H* (0.7-2.1) mmol/L Vent Mode Prvc Mechanical Rate 18 FiO2 40.0 % Tidal Volume 400 PEEP 5 Crit Value Called To Dr. gomez Crit Value Called By Pj mancuso Crit Value Read Back Y Blood Gas Notified Time 222 Sodium 133.0 (132-148) mmol/L Potassium (3.6-5.2) mmol/L Chloride 99.0 (98-107) mmol/L Carbon Dioxide (22-30) mmol/L Anion Gap (10-20) BUN (7-17) mg/dL Creatinine (0.7-1.2) mg/dL Est GFR ( Amer) Est GFR (Non-Af Amer) POC Glucose (mg/dL) 79 (65-110) mg/dL Random Glucose (65-105) mg/dL Lactic Acid (0.7-2.1) mmol/L Calcium (8.6-10.4) mg/dl Phosphorus (2.5-4.5) mg/dL Magnesium (1.6-2.3) mg/dL Total Bilirubin (0.2-1.3) mg/dL AST (14-36) U/L ALT (9-52) U/L Alkaline Phosphatase (38-126) U/L Total Creatine Kinase 3135 H (30-135) U/L CK-MB (Mass) 21.2 H (0.0-3.38) ng/mL Troponin I 0.1160 (0.00-0.120) ng/mL Total Protein (6.3-8.3) g/dL Albumin (3.5-5.0) g/dL Globulin (2.2-3.9) gm/dL Albumin/Globulin Ratio (1.0-2.1) Procalcitonin (0.19-0.49) NG/ML Free T4 (0.78-2.19) ng/dL Thyroxine (T4) (5.5-11.0) ug/dL Free T3 pg/mL (2.77-5.27) pg/mL Total T3 (1.49-2.60) nmol/L TSH 3rd Generation (0.46-4.68) mIU/L Cortisol AM Sample (4.46-22.7) ug/dL Arterial Blood Potassium 4.0 (3.6-5.2) mmol/L Urine Color (YELLOW) Urine Clarity (Clear) Urine pH (5.0-8.0) Ur Specific [place] (1.003-1.030) Urine Protein (NEGATIVE) mg/dL Urine Glucose (UA) (Normal) mg/dL Urine Ketones (NEGATIVE) mg/dL Urine Blood (NEGATIVE) Urine Nitrate (NEGATIVE) Urine Bilirubin (NEGATIVE) Urine Urobilinogen (0.2-1.0) mg/dL Ur Leukocyte Esterase (Negative) [place]/uL Urine WBC (Auto) (0-5) /hpf Urine RBC (Auto) (0-3) /hpf Ur Squamous Epith Cells (0-5) /hpf Urine Bacteria (<OCC) Stool Occult Blood (NEGATIVE) C. difficile Ag & Toxin (NEGATIVE) 03/25/18 03/25/18 03/25/18 Range/Units 20:42 20:42 20:42 WBC 8.8 (4.8-10.8) K/uL RBC 4.13 (3.80-5.20) Mil/uL Hgb 13.3 (11.0-16.0) g/dL Hct 40.0 (34.0-47.0) % MCV 97.0 (81.0-99.0) fL MCH 32.1 H (27.0-31.0) pg MCHC 33.1 (33.0-37.0) g/dL RDW 14.8 H (11.5-14.5) % Plt Count 67 L (130-400) K/uL MPV 9.3 (7.2-11.7) fL Neut % (Auto) 86.3 H (50.0-75.0) % Lymph % (Auto) 5.5 L (20.0-40.0) % [place] % (Auto) 6.8 (0.0-10.0) % Eos % (Auto) 0.7 (0.0-4.0) % Baso % (Auto) 0.7 (0.0-2.0) % Neut # (Auto) 7.6 H (1.8-7.0) K/uL Lymph # (Auto) 0.5 L (1.0-4.3) K/uL [place] # (Auto) 0.6 (0.0-0.8) K/uL Eos # (Auto) 0.1 (0.0-0.7) K/uL Baso # (Auto) 0.1 (0.0-0.2) K/uL Neutrophils % (Manual) 92 H (50-75) % Band Neutrophils % 2 (0-2) % Lymphocytes % (Manual) 3 L (20-40) % Monocytes % (Manual) 3 (0-10) % Toxic Granulation Platelet Estimate Decreased L (NORMAL) Large Platelets RBC Morphology Normal Poikilocytosis (manual Ovalocytes [place] Cells PT (9.7-12.2) SECONDS INR Puncture Site pCO2 (35-45) mm/Hg pO2 (80-100) mm/Hg HCO3 (21-28) mmol/L ABG pH (7.35-7.45) ABG Total CO2 (22-28) mmol/L ABG O2 Saturation (95-98) % ABG Base Excess (-2.0-3.0) mmol/L ABG Hemoglobin (11.7-17.4) g/dL ABG Carboxyhemoglobin (0.5-1.5) % POC ABG HHb (Measured) (0.0-5.0) % ABG Methemoglobin (0.0-3.0) % Jake Test ABG Potassium (3.6-5.2) mmol/L A-a O2 Difference mm/Hg Respiratory Index Hgb O2 Saturation (95.0-98.0) % Glucose (65-105) mg/dl Lactate (0.7-2.1) mmol/L Vent Mode Mechanical Rate FiO2 % Tidal Volume PEEP Crit Value Called To Crit Value Called By Crit Value Read Back Blood Gas Notified Time Sodium 137 (132-148) mmol/L Potassium 4.2 (3.6-5.2) mmol/L Chloride 102 (98-107) mmol/L Carbon Dioxide 12 L (22-30) mmol/L Anion Gap 27 H (10-20) BUN 35 H (7-17) mg/dL Creatinine 1.4 H (0.7-1.2) mg/dL Est GFR ( Amer) 45 Est GFR (Non-Af Amer) 37 POC Glucose (mg/dL) (65-110) mg/dL Random Glucose 120 H (65-105) mg/dL Lactic Acid (0.7-2.1) mmol/L Calcium 7.6 L (8.6-10.4) mg/dl Phosphorus (2.5-4.5) mg/dL Magnesium (1.6-2.3) mg/dL Total Bilirubin 4.8 H (0.2-1.3) mg/dL AST 974 H D (14-36) U/L ALT 234 H D (9-52) U/L Alkaline Phosphatase 75 (38-126) U/L Total Creatine Kinase (30-135) U/L CK-MB (Mass) (0.0-3.38) ng/mL Troponin I (0.00-0.120) ng/mL Total Protein 5.8 L (6.3-8.3) g/dL Albumin 2.7 L (3.5-5.0) g/dL Globulin 3.0 (2.2-3.9) gm/dL Albumin/Globulin Ratio 0.9 L (1.0-2.1) Procalcitonin 7.60 H (0.19-0.49) NG/ML Free T4 (0.78-2.19) ng/dL Thyroxine (T4) (5.5-11.0) ug/dL Free T3 pg/mL (2.77-5.27) pg/mL Total T3 (1.49-2.60) nmol/L TSH 3rd Generation (0.46-4.68) mIU/L Cortisol AM Sample (4.46-22.7) ug/dL Arterial Blood Potassium (3.6-5.2) mmol/L Urine Color (YELLOW) Urine Clarity (Clear) Urine pH (5.0-8.0) Ur Specific [place] (1.003-1.030) Urine Protein (NEGATIVE) mg/dL Urine Glucose (UA) (Normal) mg/dL Urine Ketones (NEGATIVE) mg/dL Urine Blood (NEGATIVE) Urine Nitrate (NEGATIVE) Urine Bilirubin (NEGATIVE) Urine Urobilinogen (0.2-1.0) mg/dL Ur Leukocyte Esterase (Negative) [place]/uL Urine WBC (Auto) (0-5) /hpf Urine RBC (Auto) (0-3) /hpf Ur Squamous Epith Cells (0-5) /hpf Urine Bacteria (<OCC) Stool Occult Blood (NEGATIVE) C. difficile Ag & Toxin (NEGATIVE) 03/25/18 03/25/18 03/25/18 Range/Units 20:40 18:07 17:44 WBC (4.8-10.8) K/uL RBC (3.80-5.20) Mil/uL Hgb (11.0-16.0) g/dL Hct (34.0-47.0) % MCV (81.0-99.0) fL MCH (27.0-31.0) pg MCHC (33.0-37.0) g/dL RDW (11.5-14.5) % Plt Count (130-400) K/uL MPV (7.2-11.7) fL Neut % (Auto) (50.0-75.0) % Lymph % (Auto) (20.0-40.0) % [place] % (Auto) (0.0-10.0) % Eos % (Auto) (0.0-4.0) % Baso % (Auto) (0.0-2.0) % Neut # (Auto) (1.8-7.0) K/uL Lymph # (Auto) (1.0-4.3) K/uL [place] # (Auto) (0.0-0.8) K/uL Eos # (Auto) (0.0-0.7) K/uL Baso # (Auto) (0.0-0.2) K/uL Neutrophils % (Manual) (50-75) % Band Neutrophils % (0-2) % Lymphocytes % (Manual) (20-40) % Monocytes % (Manual) (0-10) % Toxic Granulation Platelet Estimate (NORMAL) Large Platelets RBC Morphology Poikilocytosis (manual Ovalocytes [place] Cells PT (9.7-12.2) SECONDS INR Puncture Site Line pCO2 32 L (35-45) mm/Hg pO2 49 L (80-100) mm/Hg HCO3 14.0 L (21-28) mmol/L ABG pH 7.22 L (7.35-7.45) ABG Total CO2 14.1 L (22-28) mmol/L ABG O2 Saturation 82.5 L (95-98) % ABG Base Excess -13.5 L (-2.0-3.0) mmol/L ABG Hemoglobin 12.4 (11.7-17.4) g/dL ABG Carboxyhemoglobin 2.1 H (0.5-1.5) % POC ABG HHb (Measured) 17.0 H (0.0-5.0) % ABG Methemoglobin 0.8 (0.0-3.0) % Jake Test Na ABG Potassium (3.6-5.2) mmol/L A-a O2 Difference 196.0 mm/Hg Respiratory Index 4.0 Hgb O2 Saturation 80.1 L (95.0-98.0) % Glucose (65-105) mg/dl Lactate (0.7-2.1) mmol/L Vent Mode Prvc Mechanical Rate 18 FiO2 40.0 % Tidal Volume 400 PEEP 5 Crit Value Called To Crit Value Called By Crit Value Read Back Blood Gas Notified Time Sodium (132-148) mmol/L Potassium (3.6-5.2) mmol/L Chloride (98-107) mmol/L Carbon Dioxide (22-30) mmol/L Anion Gap (10-20) BUN (7-17) mg/dL Creatinine (0.7-1.2) mg/dL Est GFR ( Amer) Est GFR (Non-Af Amer) POC Glucose (mg/dL) 136 H (65-110) mg/dL Random Glucose (65-105) mg/dL Lactic Acid (0.7-2.1) mmol/L Calcium (8.6-10.4) mg/dl Phosphorus (2.5-4.5) mg/dL Magnesium (1.6-2.3) mg/dL Total Bilirubin (0.2-1.3) mg/dL AST (14-36) U/L ALT (9-52) U/L Alkaline Phosphatase (38-126) U/L Total Creatine Kinase 854 H (30-135) U/L CK-MB (Mass) 5.47 H (0.0-3.38) ng/mL Troponin I 0.1050 (0.00-0.120) ng/mL Total Protein (6.3-8.3) g/dL Albumin (3.5-5.0) g/dL Globulin (2.2-3.9) gm/dL Albumin/Globulin Ratio (1.0-2.1) Procalcitonin (0.19-0.49) NG/ML Free T4 (0.78-2.19) ng/dL Thyroxine (T4) 12.9 H (5.5-11.0) ug/dL Free T3 pg/mL (2.77-5.27) pg/mL Total T3 (1.49-2.60) nmol/L TSH 3rd Generation (0.46-4.68) mIU/L Cortisol AM Sample (4.46-22.7) ug/dL Arterial Blood Potassium (3.6-5.2) mmol/L Urine Color (YELLOW) Urine Clarity (Clear) Urine pH (5.0-8.0) Ur Specific [place] (1.003-1.030) Urine Protein (NEGATIVE) mg/dL Urine Glucose (UA) (Normal) mg/dL Urine Ketones (NEGATIVE) mg/dL Urine Blood (NEGATIVE) Urine Nitrate (NEGATIVE) Urine Bilirubin (NEGATIVE) Urine Urobilinogen (0.2-1.0) mg/dL Ur Leukocyte Esterase (Negative) [place]/uL Urine WBC (Auto) (0-5) /hpf Urine RBC (Auto) (0-3) /hpf Ur Squamous Epith Cells (0-5) /hpf Urine Bacteria (<OCC) Stool Occult Blood (NEGATIVE) C. difficile Ag & Toxin (NEGATIVE) 03/25/18 03/25/18 03/25/18 Range/Units 16:50 16:39 16:34 WBC (4.8-10.8) K/uL RBC (3.80-5.20) Mil/uL Hgb (11.0-16.0) g/dL Hct (34.0-47.0) % MCV (81.0-99.0) fL MCH (27.0-31.0) pg MCHC (33.0-37.0) g/dL RDW (11.5-14.5) % Plt Count (130-400) K/uL MPV (7.2-11.7) fL Neut % (Auto) (50.0-75.0) % Lymph % (Auto) (20.0-40.0) % [place] % (Auto) (0.0-10.0) % Eos % (Auto) (0.0-4.0) % Baso % (Auto) (0.0-2.0) % Neut # (Auto) (1.8-7.0) K/uL Lymph # (Auto) (1.0-4.3) K/uL [place] # (Auto) (0.0-0.8) K/uL Eos # (Auto) (0.0-0.7) K/uL Baso # (Auto) (0.0-0.2) K/uL Neutrophils % (Manual) (50-75) % Band Neutrophils % (0-2) % Lymphocytes % (Manual) (20-40) % Monocytes % (Manual) (0-10) % Toxic Granulation Platelet Estimate (NORMAL) Large Platelets RBC Morphology Poikilocytosis (manual Ovalocytes [place] Cells PT (9.7-12.2) SECONDS INR Puncture Site Lb pCO2 31 L (35-45) mm/Hg pO2 500 H (80-100) mm/Hg HCO3 17.2 L (21-28) mmol/L ABG pH 7.30 L (7.35-7.45) ABG Total CO2 16.3 L (22-28) mmol/L ABG O2 Saturation 100.5 H (95-98) % ABG Base Excess -9.9 L (-2.0-3.0) mmol/L ABG Hemoglobin 12.7 (11.7-17.4) g/dL ABG Carboxyhemoglobin 1.7 H (0.5-1.5) % POC ABG HHb (Measured) -0.5 L (0.0-5.0) % ABG Methemoglobin 1.2 (0.0-3.0) % Jake Test Na ABG Potassium (3.6-5.2) mmol/L A-a O2 Difference 174.0 mm/Hg Respiratory Index 0.3 Hgb O2 Saturation 97.5 (95.0-98.0) % Glucose (65-105) mg/dl Lactate (0.7-2.1) mmol/L Vent Mode Prvc Mechanical Rate 14 FiO2 100.0 % Tidal Volume 400 PEEP 5 Crit Value Called To Crit Value Called By Crit Value Read Back Blood Gas Notified Time Sodium 135 (132-148) mmol/L Potassium 4.9 (3.6-5.2) mmol/L Chloride 101 (98-107) mmol/L Carbon Dioxide 17 L (22-30) mmol/L Anion Gap 21 H (10-20) BUN 32 H (7-17) mg/dL Creatinine 1.1 (0.7-1.2) mg/dL Est GFR ( Amer) 59 Est GFR (Non-Af Amer) 49 POC Glucose (mg/dL) (65-110) mg/dL Random Glucose < 20 L* D (65-105) mg/dL Lactic Acid 5.1 H* (0.7-2.1) mmol/L Calcium 8.4 L (8.6-10.4) mg/dl Phosphorus (2.5-4.5) mg/dL Magnesium (1.6-2.3) mg/dL Total Bilirubin 4.4 H (0.2-1.3) mg/dL AST 278 H D (14-36) U/L ALT 84 H D (9-52) U/L Alkaline Phosphatase 89 (38-126) U/L Total Creatine Kinase (30-135) U/L CK-MB (Mass) (0.0-3.38) ng/mL Troponin I (0.00-0.120) ng/mL Total Protein 6.4 (6.3-8.3) g/dL Albumin 3.1 L (3.5-5.0) g/dL Globulin 3.3 (2.2-3.9) gm/dL Albumin/Globulin Ratio 0.9 L (1.0-2.1) Procalcitonin (0.19-0.49) NG/ML Free T4 (0.78-2.19) ng/dL Thyroxine (T4) (5.5-11.0) ug/dL Free T3 pg/mL (2.77-5.27) pg/mL Total T3 (1.49-2.60) nmol/L TSH 3rd Generation (0.46-4.68) mIU/L Cortisol AM Sample (4.46-22.7) ug/dL Arterial Blood Potassium (3.6-5.2) mmol/L Urine Color (YELLOW) Urine Clarity (Clear) Urine pH (5.0-8.0) Ur Specific [place] (1.003-1.030) Urine Protein (NEGATIVE) mg/dL Urine Glucose (UA) (Normal) mg/dL Urine Ketones (NEGATIVE) mg/dL Urine Blood (NEGATIVE) Urine Nitrate (NEGATIVE) Urine Bilirubin (NEGATIVE) Urine Urobilinogen (0.2-1.0) mg/dL Ur Leukocyte Esterase (Negative) [place]/uL Urine WBC (Auto) (0-5) /hpf Urine RBC (Auto) (0-3) /hpf Ur Squamous Epith Cells (0-5) /hpf Urine Bacteria (<OCC) Stool Occult Blood (NEGATIVE) C. difficile Ag & Toxin (NEGATIVE) 03/25/18 03/25/18 03/25/18 Range/Units 16:34 16:34 16:34 WBC 7.0 D (4.8-10.8) K/uL RBC 4.16 (3.80-5.20) Mil/uL Hgb 13.2 (11.0-16.0) g/dL Hct 40.0 (34.0-47.0) % MCV 96.2 (81.0-99.0) fL MCH 31.7 H (27.0-31.0) pg MCHC 33.0 (33.0-37.0) g/dL RDW 14.7 H (11.5-14.5) % Plt Count 84 L (130-400) K/uL MPV 9.4 (7.2-11.7) fL Neut % (Auto) 82.0 H (50.0-75.0) % Lymph % (Auto) 6.1 L (20.0-40.0) % [place] % (Auto) 11.1 H (0.0-10.0) % Eos % (Auto) 0.4 (0.0-4.0) % Baso % (Auto) 0.4 (0.0-2.0) % Neut # (Auto) 5.8 (1.8-7.0) K/uL Lymph # (Auto) 0.4 L (1.0-4.3) K/uL [place] # (Auto) 0.8 (0.0-0.8) K/uL Eos # (Auto) 0.0 (0.0-0.7) K/uL Baso # (Auto) 0.0 (0.0-0.2) K/uL Neutrophils % (Manual) 85 H (50-75) % Band Neutrophils % 2 (0-2) % Lymphocytes % (Manual) 5 L (20-40) % Monocytes % (Manual) 8 (0-10) % Toxic Granulation Platelet Estimate Decreased L (NORMAL) Large Platelets RBC Morphology Normal Poikilocytosis (manual Ovalocytes [place] Cells PT 34.1 H* (9.7-12.2) SECONDS INR 3.1 Puncture Site pCO2 (35-45) mm/Hg pO2 (80-100) mm/Hg HCO3 (21-28) mmol/L ABG pH (7.35-7.45) ABG Total CO2 (22-28) mmol/L ABG O2 Saturation (95-98) % ABG Base Excess (-2.0-3.0) mmol/L ABG Hemoglobin (11.7-17.4) g/dL ABG Carboxyhemoglobin (0.5-1.5) % POC ABG HHb (Measured) (0.0-5.0) % ABG Methemoglobin (0.0-3.0) % Jake Test ABG Potassium (3.6-5.2) mmol/L A-a O2 Difference mm/Hg Respiratory Index Hgb O2 Saturation (95.0-98.0) % Glucose (65-105) mg/dl Lactate (0.7-2.1) mmol/L Vent Mode Mechanical Rate FiO2 % Tidal Volume PEEP Crit Value Called To Crit Value Called By Crit Value Read Back Blood Gas Notified Time Sodium (132-148) mmol/L Potassium (3.6-5.2) mmol/L Chloride (98-107) mmol/L Carbon Dioxide (22-30) mmol/L Anion Gap (10-20) BUN (7-17) mg/dL Creatinine (0.7-1.2) mg/dL Est GFR ( Amer) Est GFR (Non-Af Amer) POC Glucose (mg/dL) (65-110) mg/dL Random Glucose (65-105) mg/dL Lactic Acid (0.7-2.1) mmol/L Calcium (8.6-10.4) mg/dl Phosphorus (2.5-4.5) mg/dL Magnesium (1.6-2.3) mg/dL Total Bilirubin (0.2-1.3) mg/dL AST (14-36) U/L ALT (9-52) U/L Alkaline Phosphatase (38-126) U/L Total Creatine Kinase (30-135) U/L CK-MB (Mass) (0.0-3.38) ng/mL Troponin I (0.00-0.120) ng/mL Total Protein (6.3-8.3) g/dL Albumin (3.5-5.0) g/dL Globulin (2.2-3.9) gm/dL Albumin/Globulin Ratio (1.0-2.1) Procalcitonin (0.19-0.49) NG/ML Free T4 (0.78-2.19) ng/dL Thyroxine (T4) (5.5-11.0) ug/dL Free T3 pg/mL (2.77-5.27) pg/mL Total T3 (1.49-2.60) nmol/L TSH 3rd Generation (0.46-4.68) mIU/L Cortisol AM Sample (4.46-22.7) ug/dL Arterial Blood Potassium (3.6-5.2) mmol/L Urine Color [place] (YELLOW) Urine Clarity Hazy (Clear) Urine pH 5.0 (5.0-8.0) Ur Specific [place] 1.057 H (1.003-1.030) Urine Protein 1+ H (NEGATIVE) mg/dL Urine Glucose (UA) Normal (Normal) mg/dL Urine Ketones Negative (NEGATIVE) mg/dL Urine Blood 1+ H (NEGATIVE) Urine Nitrate Negative (NEGATIVE) Urine Bilirubin Negative (NEGATIVE) Urine Urobilinogen Normal (0.2-1.0) mg/dL Ur Leukocyte Esterase Trace (Negative) [place]/uL Urine WBC (Auto) 13 H (0-5) /hpf Urine RBC (Auto) 14 H (0-3) /hpf Ur Squamous Epith Cells 8 H (0-5) /hpf Urine Bacteria Few H (<OCC) Stool Occult Blood (NEGATIVE) C. difficile Ag & Toxin (NEGATIVE) 03/25/18 Range/Units 08:15 WBC (4.8-10.8) K/uL RBC (3.80-5.20) Mil/uL Hgb (11.0-16.0) g/dL Hct (34.0-47.0) % MCV (81.0-99.0) fL MCH (27.0-31.0) pg MCHC (33.0-37.0) g/dL RDW (11.5-14.5) % Plt Count (130-400) K/uL MPV (7.2-11.7) fL Neut % (Auto) (50.0-75.0) % Lymph % (Auto) (20.0-40.0) % [place] % (Auto) (0.0-10.0) % Eos % (Auto) (0.0-4.0) % Baso % (Auto) (0.0-2.0) % Neut # (Auto) (1.8-7.0) K/uL Lymph # (Auto) (1.0-4.3) K/uL [place] # (Auto) (0.0-0.8) K/uL Eos # (Auto) (0.0-0.7) K/uL Baso # (Auto) (0.0-0.2) K/uL Neutrophils % (Manual) (50-75) % Band Neutrophils % (0-2) % Lymphocytes % (Manual) (20-40) % Monocytes % (Manual) (0-10) % Toxic Granulation Platelet Estimate (NORMAL) Large Platelets RBC Morphology Poikilocytosis (manual Ovalocytes [place] Cells PT (9.7-12.2) SECONDS INR Puncture Site pCO2 (35-45) mm/Hg pO2 (80-100) mm/Hg HCO3 (21-28) mmol/L ABG pH (7.35-7.45) ABG Total CO2 (22-28) mmol/L ABG O2 Saturation (95-98) % ABG Base Excess (-2.0-3.0) mmol/L ABG Hemoglobin (11.7-17.4) g/dL ABG Carboxyhemoglobin (0.5-1.5) % POC ABG HHb (Measured) (0.0-5.0) % ABG Methemoglobin (0.0-3.0) % Jake Test ABG Potassium (3.6-5.2) mmol/L A-a O2 Difference mm/Hg Respiratory Index Hgb O2 Saturation (95.0-98.0) % Glucose (65-105) mg/dl Lactate (0.7-2.1) mmol/L Vent Mode Mechanical Rate FiO2 % Tidal Volume PEEP Crit Value Called To Crit Value Called By Crit Value Read Back Blood Gas Notified Time Sodium (132-148) mmol/L Potassium (3.6-5.2) mmol/L Chloride (98-107) mmol/L Carbon Dioxide (22-30) mmol/L Anion Gap (10-20) BUN (7-17) mg/dL Creatinine (0.7-1.2) mg/dL Est GFR ( Amer) Est GFR (Non-Af Amer) POC Glucose (mg/dL) (65-110) mg/dL Random Glucose (65-105) mg/dL Lactic Acid (0.7-2.1) mmol/L Calcium (8.6-10.4) mg/dl Phosphorus (2.5-4.5) mg/dL Magnesium (1.6-2.3) mg/dL Total Bilirubin (0.2-1.3) mg/dL AST (14-36) U/L ALT (9-52) U/L Alkaline Phosphatase (38-126) U/L Total Creatine Kinase (30-135) U/L CK-MB (Mass) (0.0-3.38) ng/mL Troponin I (0.00-0.120) ng/mL Total Protein (6.3-8.3) g/dL Albumin (3.5-5.0) g/dL Globulin (2.2-3.9) gm/dL Albumin/Globulin Ratio (1.0-2.1) Procalcitonin (0.19-0.49) NG/ML Free T4 (0.78-2.19) ng/dL Thyroxine (T4) (5.5-11.0) ug/dL Free T3 pg/mL (2.77-5.27) pg/mL Total T3 (1.49-2.60) nmol/L TSH 3rd Generation (0.46-4.68) mIU/L Cortisol AM Sample (4.46-22.7) ug/dL Arterial Blood Potassium (3.6-5.2) mmol/L Urine Color (YELLOW) Urine Clarity (Clear) Urine pH (5.0-8.0) Ur Specific [place] (1.003-1.030) Urine Protein (NEGATIVE) mg/dL Urine Glucose (UA) (Normal) mg/dL Urine Ketones (NEGATIVE) mg/dL Urine Blood (NEGATIVE) Urine Nitrate (NEGATIVE) Urine Bilirubin (NEGATIVE) Urine Urobilinogen (0.2-1.0) mg/dL Ur Leukocyte Esterase (Negative) [place]/uL Urine WBC (Auto) (0-5) /hpf Urine RBC (Auto) (0-3) /hpf Ur Squamous Epith Cells (0-5) /hpf Urine Bacteria (<OCC) Stool Occult Blood (NEGATIVE) C. difficile Ag & Toxin Negative (NEGATIVE) Laboratory Results - last 24 hr 03/25/18 03/25/18 03/25/18 08:15 16:34 16:34 WBC 7.0 D RBC 4.16 Hgb 13.2 Hct 40.0 MCV 96.2 MCH 31.7 H MCHC 33.0 RDW 14.7 H Plt Count 84 L MPV 9.4 Neut % (Auto) 82.0 H Lymph % (Auto) 6.1 L [place] % (Auto) 11.1 H Eos % (Auto) 0.4 Baso % (Auto) 0.4 Neut # (Auto) 5.8 Lymph # (Auto) 0.4 L [place] # (Auto) 0.8 Eos # (Auto) 0.0 Baso # (Auto) 0.0 Neutrophils % (Manual) 85 H Band Neutrophils % 2 Lymphocytes % (Manual) 5 L Monocytes % (Manual) 8 Toxic Granulation Platelet Estimate Decreased L Large Platelets RBC Morphology Normal Poikilocytosis (manual Ovalocytes [place] Cells PT 34.1 H* INR 3.1 Puncture Site pCO2 pO2 HCO3 ABG pH ABG Total CO2 ABG O2 Saturation ABG Base Excess ABG Hemoglobin ABG Carboxyhemoglobin POC ABG HHb (Measured) ABG Methemoglobin Jake Test ABG Potassium A-a O2 Difference Respiratory Index Hgb O2 Saturation Glucose Lactate Vent Mode Mechanical Rate FiO2 Tidal Volume PEEP Crit Value Called To Crit Value Called By Crit Value Read Back Blood Gas Notified Time Sodium Potassium Chloride Carbon Dioxide Anion Gap BUN Creatinine Est GFR ( Amer) Est GFR (Non-Af Amer) POC Glucose (mg/dL) Random Glucose Lactic Acid Calcium Phosphorus Magnesium Total Bilirubin AST ALT Alkaline Phosphatase Total Creatine Kinase CK-MB (Mass) Troponin I Total Protein Albumin Globulin Albumin/Globulin Ratio Procalcitonin Free T4 Thyroxine (T4) Free T3 pg/mL Total T3 TSH 3rd Generation Cortisol AM Sample Arterial Blood Potassium Urine Color Urine Clarity Urine pH Ur Specific [place] Urine Protein Urine Glucose (UA) Urine Ketones Urine Blood Urine Nitrate Urine Bilirubin Urine Urobilinogen Ur Leukocyte Esterase Urine WBC (Auto) Urine RBC (Auto) Ur Squamous Epith Cells Urine Bacteria Stool Occult Blood C. difficile Ag & Toxin Negative 03/25/18 03/25/18 03/25/18 16:34 16:34 16:39 WBC RBC Hgb Hct MCV MCH MCHC RDW Plt Count MPV Neut % (Auto) Lymph % (Auto) [place] % (Auto) Eos % (Auto) Baso % (Auto) Neut # (Auto) Lymph # (Auto) [place] # (Auto) Eos # (Auto) Baso # (Auto) Neutrophils % (Manual) Band Neutrophils % Lymphocytes % (Manual) Monocytes % (Manual) Toxic Granulation Platelet Estimate Large Platelets RBC Morphology Poikilocytosis (manual Ovalocytes Jeff Cells PT INR Puncture Site pCO2 pO2 HCO3 ABG pH ABG Total CO2 ABG O2 Saturation ABG Base Excess ABG Hemoglobin ABG Carboxyhemoglobin POC ABG HHb (Measured) ABG Methemoglobin Jake Test ABG Potassium A-a O2 Difference Respiratory Index Hgb O2 Saturation Glucose Lactate Vent Mode Mechanical Rate FiO2 Tidal Volume PEEP Crit Value Called To Crit Value Called By Crit Value Read Back Blood Gas Notified Time Sodium 135 Potassium 4.9 Chloride 101 Carbon Dioxide 17 L Anion Gap 21 H BUN 32 H Creatinine 1.1 Est GFR ( Amer) 59 Est GFR (Non-Af Amer) 49 POC Glucose (mg/dL) Random Glucose < 20 L* D Lactic Acid 5.1 H* Calcium 8.4 L Phosphorus Magnesium Total Bilirubin 4.4 H AST 278 H D ALT 84 H D Alkaline Phosphatase 89 Total Creatine Kinase CK-MB (Mass) Troponin I Total Protein 6.4 Albumin 3.1 L Globulin 3.3 Albumin/Globulin Ratio 0.9 L Procalcitonin Free T4 Thyroxine (T4) Free T3 pg/mL Total T3 TSH 3rd Generation Cortisol AM Sample Arterial Blood Potassium Urine Color Martha Urine Clarity Hazy Urine pH 5.0 Ur Specific [place] 1.057 H Urine Protein 1+ H Urine Glucose (UA) Normal Urine Ketones Negative Urine Blood 1+ H Urine Nitrate Negative Urine Bilirubin Negative Urine Urobilinogen Normal Ur Leukocyte Esterase Trace Urine WBC (Auto) 13 H Urine RBC (Auto) 14 H Ur Squamous Epith Cells 8 H Urine Bacteria Few H Stool Occult Blood C. difficile Ag & Toxin 03/25/18 03/25/18 03/25/18 16:50 17:44 18:07 WBC RBC Hgb Hct MCV MCH MCHC RDW Plt Count MPV Neut % (Auto) Lymph % (Auto) [place] % (Auto) Eos % (Auto) Baso % (Auto) Neut # (Auto) Lymph # (Auto) [place] # (Auto) Eos # (Auto) Baso # (Auto) Neutrophils % (Manual) Band Neutrophils % Lymphocytes % (Manual) Monocytes % (Manual) Toxic Granulation Platelet Estimate Large Platelets RBC Morphology Poikilocytosis (manual Ovalocytes [place] Cells PT INR Puncture Site Lb Line pCO2 31 L 32 L pO2 500 H 49 L HCO3 17.2 L 14.0 L ABG pH 7.30 L 7.22 L ABG Total CO2 16.3 L 14.1 L ABG O2 Saturation 100.5 H 82.5 L ABG Base Excess -9.9 L -13.5 L ABG Hemoglobin 12.7 12.4 ABG Carboxyhemoglobin 1.7 H 2.1 H POC ABG HHb (Measured) -0.5 L 17.0 H ABG Methemoglobin 1.2 0.8 Jake Test Na Na ABG Potassium A-a O2 Difference 174.0 196.0 Respiratory Index 0.3 4.0 Hgb O2 Saturation 97.5 80.1 L Glucose Lactate Vent Mode Prvc Prvc Mechanical Rate 14 18 FiO2 100.0 40.0 Tidal Volume 400 400 PEEP 5 5 Crit Value Called To Crit Value Called By Crit Value Read Back Blood Gas Notified Time Sodium Potassium Chloride Carbon Dioxide Anion Gap BUN Creatinine Est GFR ( Amer) Est GFR (Non-Af Amer) POC Glucose (mg/dL) Random Glucose Lactic Acid Calcium Phosphorus Magnesium Total Bilirubin AST ALT Alkaline Phosphatase Total Creatine Kinase 854 H CK-MB (Mass) 5.47 H Troponin I 0.1050 Total Protein Albumin Globulin Albumin/Globulin Ratio Procalcitonin Free T4 Thyroxine (T4) 12.9 H Free T3 pg/mL Total T3 TSH 3rd Generation Cortisol AM Sample Arterial Blood Potassium Urine Color Urine Clarity Urine pH Ur Specific [place] Urine Protein Urine Glucose (UA) Urine Ketones Urine Blood Urine Nitrate Urine Bilirubin Urine Urobilinogen Ur Leukocyte Esterase Urine WBC (Auto) Urine RBC (Auto) Ur Squamous Epith Cells Urine Bacteria Stool Occult Blood C. difficile Ag & Toxin 03/25/18 03/25/18 03/25/18 20:40 20:42 20:42 WBC 8.8 RBC 4.13 Hgb 13.3 Hct 40.0 MCV 97.0 MCH 32.1 H MCHC 33.1 RDW 14.8 H Plt Count 67 L MPV 9.3 Neut % (Auto) 86.3 H Lymph % (Auto) 5.5 L [place] % (Auto) 6.8 Eos % (Auto) 0.7 Baso % (Auto) 0.7 Neut # (Auto) 7.6 H Lymph # (Auto) 0.5 L [place] # (Auto) 0.6 Eos # (Auto) 0.1 Baso # (Auto) 0.1 Neutrophils % (Manual) 92 H Band Neutrophils % 2 Lymphocytes % (Manual) 3 L Monocytes % (Manual) 3 Toxic Granulation Platelet Estimate Decreased L Large Platelets RBC Morphology Normal Poikilocytosis (manual Ovalocytes [place] Cells PT INR Puncture Site pCO2 pO2 HCO3 ABG pH ABG Total CO2 ABG O2 Saturation ABG Base Excess ABG Hemoglobin ABG Carboxyhemoglobin POC ABG HHb (Measured) ABG Methemoglobin Jake Test ABG Potassium A-a O2 Difference Respiratory Index Hgb O2 Saturation Glucose Lactate Vent Mode Mechanical Rate FiO2 Tidal Volume PEEP Crit Value Called To Crit Value Called By Crit Value Read Back Blood Gas Notified Time Sodium Potassium Chloride Carbon Dioxide Anion Gap BUN Creatinine Est GFR ( Amer) Est GFR (Non-Af Amer) POC Glucose (mg/dL) 136 H Random Glucose Lactic Acid Calcium Phosphorus Magnesium Total Bilirubin AST ALT Alkaline Phosphatase Total Creatine Kinase CK-MB (Mass) Troponin I Total Protein Albumin Globulin Albumin/Globulin Ratio Procalcitonin 7.60 H Free T4 Thyroxine (T4) Free T3 pg/mL Total T3 TSH 3rd Generation Cortisol AM Sample Arterial Blood Potassium Urine Color Urine Clarity Urine pH Ur Specific [place] Urine Protein Urine Glucose (UA) Urine Ketones Urine Blood Urine Nitrate Urine Bilirubin Urine Urobilinogen Ur Leukocyte Esterase Urine WBC (Auto) Urine RBC (Auto) Ur Squamous Epith Cells Urine Bacteria Stool Occult Blood C. difficile Ag & Toxin 03/25/18 03/25/18 03/25/18 20:42 22:21 23:40 WBC RBC Hgb Hct MCV MCH MCHC RDW Plt Count MPV Neut % (Auto) Lymph % (Auto) [place] % (Auto) Eos % (Auto) Baso % (Auto) Neut # (Auto) Lymph # (Auto) [place] # (Auto) Eos # (Auto) Baso # (Auto) Neutrophils % (Manual) Band Neutrophils % Lymphocytes % (Manual) Monocytes % (Manual) Toxic Granulation Platelet Estimate Large Platelets RBC Morphology Poikilocytosis (manual Ovalocytes [place] Cells PT INR Puncture Site Lb pCO2 26 L pO2 198 H HCO3 13.6 L ABG pH 7.24 L ABG Total CO2 11.9 L ABG O2 Saturation 100.3 H ABG Base Excess -14.6 L ABG Hemoglobin ABG Carboxyhemoglobin POC ABG HHb (Measured) ABG Methemoglobin Jake Test Na ABG Potassium 4.0 A-a O2 Difference 55.0 Respiratory Index 0.3 Hgb O2 Saturation Glucose 77 Lactate 11.4 H* Vent Mode Prvc Mechanical Rate 18 FiO2 40.0 Tidal Volume 400 PEEP 5 Crit Value Called To Dr. gomez Crit Value Called By Pj mancuso Crit Value Read Back Y Blood Gas Notified Time 2224 Sodium 137 133.0 Potassium 4.2 Chloride 102 99.0 Carbon Dioxide 12 L Anion Gap 27 H BUN 35 H Creatinine 1.4 H Est GFR ( Amer) 45 Est GFR (Non-Af Amer) 37 POC Glucose (mg/dL) 79 Random Glucose 120 H Lactic Acid Calcium 7.6 L Phosphorus Magnesium Total Bilirubin 4.8 H AST 974 H D ALT 234 H D Alkaline Phosphatase 75 Total Creatine Kinase CK-MB (Mass) Troponin I Total Protein 5.8 L Albumin 2.7 L Globulin 3.0 Albumin/Globulin Ratio 0.9 L Procalcitonin Free T4 Thyroxine (T4) Free T3 pg/mL Total T3 TSH 3rd Generation Cortisol AM Sample Arterial Blood Potassium 4.0 Urine Color Urine Clarity Urine pH Ur Specific [place] Urine Protein Urine Glucose (UA) Urine Ketones Urine Blood Urine Nitrate Urine Bilirubin Urine Urobilinogen Ur Leukocyte Esterase Urine WBC (Auto) Urine RBC (Auto) Ur Squamous Epith Cells Urine Bacteria Stool Occult Blood C. difficile Ag & Toxin 03/26/18 03/26/18 03/26/18 03:16 04:25 05:03 WBC RBC Hgb Hct MCV MCH MCHC RDW Plt Count MPV Neut % (Auto) Lymph % (Auto) [place] % (Auto) Eos % (Auto) Baso % (Auto) Neut # (Auto) Lymph # (Auto) [place] # (Auto) Eos # (Auto) Baso # (Auto) Neutrophils % (Manual) Band Neutrophils % Lymphocytes % (Manual) Monocytes % (Manual) Toxic Granulation Platelet Estimate Large Platelets RBC Morphology Poikilocytosis (manual Ovalocytes Jeff Cells PT INR Puncture Site Lb pCO2 27 L pO2 179 H HCO3 17.9 L ABG pH 7.35 ABG Total CO2 15.7 L ABG O2 Saturation 99.9 H ABG Base Excess -9.1 L ABG Hemoglobin ABG Carboxyhemoglobin POC ABG HHb (Measured) ABG Methemoglobin Jake Test Na ABG Potassium 4.0 A-a O2 Difference 72.0 Respiratory Index 0.4 Hgb O2 Saturation Glucose 52 L Lactate 12.1 H* Vent Mode Prvc Mechanical Rate 18 FiO2 40.0 Tidal Volume 400 PEEP 5 Crit Value Called To Nirmala karimi/rn Crit Value Called By Phil monge/rt Crit Value Read Back Y Blood Gas Notified Time 445 Sodium 134.0 Potassium Chloride 98.0 Carbon Dioxide Anion Gap BUN Creatinine Est GFR ( Amer) Est GFR (Non-Af Amer) POC Glucose (mg/dL) 60 L Random Glucose Lactic Acid Calcium Phosphorus Magnesium Total Bilirubin AST ALT Alkaline Phosphatase Total Creatine Kinase 3135 H CK-MB (Mass) 21.2 H Troponin I 0.1160 Total Protein Albumin Globulin Albumin/Globulin Ratio Procalcitonin Free T4 Thyroxine (T4) Free T3 pg/mL Total T3 TSH 3rd Generation Cortisol AM Sample Arterial Blood Potassium 4.0 Urine Color Urine Clarity Urine pH Ur Specific [place] Urine Protein Urine Glucose (UA) Urine Ketones Urine Blood Urine Nitrate Urine Bilirubin Urine Urobilinogen Ur Leukocyte Esterase Urine WBC (Auto) Urine RBC (Auto) Ur Squamous Epith Cells Urine Bacteria Stool Occult Blood C. difficile Ag & Toxin 03/26/18 03/26/18 03/26/18 05:06 06:08 06:13 WBC 11.9 H RBC 4.02 Hgb 12.9 Hct 38.5 MCV 95.9 MCH 32.0 H MCHC 33.4 RDW 14.6 H Plt Count 82 L MPV 10.7 Neut % (Auto) 87.2 H Lymph % (Auto) 7.3 L [place] % (Auto) 5.3 Eos % (Auto) 0.1 Baso % (Auto) 0.1 Neut # (Auto) 10.4 H Lymph # (Auto) 0.9 L [place] # (Auto) 0.6 Eos # (Auto) 0.0 Baso # (Auto) 0.0 Neutrophils % (Manual) 72 Band Neutrophils % 16 H* Lymphocytes % (Manual) 7 L Monocytes % (Manual) 5 Toxic Granulation Present Platelet Estimate Decreased L Large Platelets Present RBC Morphology Poikilocytosis (manual Slight Ovalocytes Slight Jeff Cells Slight PT INR Puncture Site pCO2 pO2 HCO3 ABG pH ABG Total CO2 ABG O2 Saturation ABG Base Excess ABG Hemoglobin ABG Carboxyhemoglobin POC ABG HHb (Measured) ABG Methemoglobin Jake Test ABG Potassium A-a O2 Difference Respiratory Index Hgb O2 Saturation Glucose Lactate Vent Mode Mechanical Rate FiO2 Tidal Volume PEEP Crit Value Called To Crit Value Called By Crit Value Read Back Blood Gas Notified Time Sodium Potassium Chloride Carbon Dioxide Anion Gap BUN Creatinine Est GFR ( Amer) Est GFR (Non-Af Amer) POC Glucose (mg/dL) 62 L Random Glucose Lactic Acid Calcium Phosphorus Magnesium Total Bilirubin AST ALT Alkaline Phosphatase Total Creatine Kinase CK-MB (Mass) Troponin I Total Protein Albumin Globulin Albumin/Globulin Ratio Procalcitonin Free T4 Thyroxine (T4) Free T3 pg/mL Total T3 TSH 3rd Generation Cortisol AM Sample Arterial Blood Potassium Urine Color Urine Clarity Urine pH Ur Specific [place] Urine Protein Urine Glucose (UA) Urine Ketones Urine Blood Urine Nitrate Urine Bilirubin Urine Urobilinogen Ur Leukocyte Esterase Urine WBC (Auto) Urine RBC (Auto) Ur Squamous Epith Cells Urine Bacteria Stool Occult Blood Positive H C. difficile Ag & Toxin 03/26/18 03/26/18 03/26/18 06:14 06:14 06:14 WBC RBC Hgb Hct MCV MCH MCHC RDW Plt Count MPV Neut % (Auto) Lymph % (Auto) [place] % (Auto) Eos % (Auto) Baso % (Auto) Neut # (Auto) Lymph # (Auto) [place] # (Auto) Eos # (Auto) Baso # (Auto) Neutrophils % (Manual) Band Neutrophils % Lymphocytes % (Manual) Monocytes % (Manual) Toxic Granulation Platelet Estimate Large Platelets RBC Morphology Poikilocytosis (manual Ovalocytes [place] Cells PT INR Puncture Site pCO2 pO2 HCO3 ABG pH ABG Total CO2 ABG O2 Saturation ABG Base Excess ABG Hemoglobin ABG Carboxyhemoglobin POC ABG HHb (Measured) ABG Methemoglobin Jake Test ABG Potassium A-a O2 Difference Respiratory Index Hgb O2 Saturation Glucose Lactate Vent Mode Mechanical Rate FiO2 Tidal Volume PEEP Crit Value Called To Crit Value Called By Crit Value Read Back Blood Gas Notified Time Sodium 140 Potassium 4.4 Chloride 98 Carbon Dioxide 16 L Anion Gap 30 H BUN 40 H Creatinine 1.7 H Est GFR ( Amer) 36 Est GFR (Non-Af Amer) 30 POC Glucose (mg/dL) Random Glucose 44 L Lactic Acid Calcium 7.1 L Phosphorus 7.4 H Magnesium 1.9 Total Bilirubin 5.4 H AST 1390 H ALT 361 H D Alkaline Phosphatase 70 Total Creatine Kinase CK-MB (Mass) Troponin I Total Protein 5.7 L Albumin 2.7 L Globulin 3.0 Albumin/Globulin Ratio 0.9 L Procalcitonin Free T4 > 6.99 H Thyroxine (T4) 14.4 H Free T3 pg/mL Total T3 TSH 3rd Generation < 0.02 L Cortisol AM Sample > 616.0 H Arterial Blood Potassium Urine Color Urine Clarity Urine pH Ur Specific [place] Urine Protein Urine Glucose (UA) Urine Ketones Urine Blood Urine Nitrate Urine Bilirubin Urine Urobilinogen Ur Leukocyte Esterase Urine WBC (Auto) Urine RBC (Auto) Ur Squamous Epith Cells Urine Bacteria Stool Occult Blood C. difficile Ag & Toxin 03/26/18 03/26/18 03/26/18 07:40 08:54 08:54 WBC RBC Hgb Hct MCV MCH MCHC RDW Plt Count MPV Neut % (Auto) Lymph % (Auto) [place] % (Auto) Eos % (Auto) Baso % (Auto) Neut # (Auto) Lymph # (Auto) [place] # (Auto) Eos # (Auto) Baso # (Auto) Neutrophils % (Manual) Band Neutrophils % Lymphocytes % (Manual) Monocytes % (Manual) Toxic Granulation Platelet Estimate Large Platelets RBC Morphology Poikilocytosis (manual Ovalocytes [place] Cells PT INR Puncture Site pCO2 pO2 HCO3 ABG pH ABG Total CO2 ABG O2 Saturation ABG Base Excess ABG Hemoglobin ABG Carboxyhemoglobin POC ABG HHb (Measured) ABG Methemoglobin Jake Test ABG Potassium A-a O2 Difference Respiratory Index Hgb O2 Saturation Glucose Lactate Vent Mode Mechanical Rate FiO2 Tidal Volume PEEP Crit Value Called To Crit Value Called By Crit Value Read Back Blood Gas Notified Time Sodium Potassium Chloride Carbon Dioxide Anion Gap BUN Creatinine Est GFR ( Amer) Est GFR (Non-Af Amer) POC Glucose (mg/dL) 130 H Random Glucose Lactic Acid Calcium Phosphorus Magnesium Total Bilirubin AST ALT Alkaline Phosphatase Total Creatine Kinase CK-MB (Mass) Troponin I Total Protein Albumin Globulin Albumin/Globulin Ratio Procalcitonin 8.51 H Free T4 Thyroxine (T4) Free T3 pg/mL > 22.80 H Total T3 6.42 H TSH 3rd Generation Cortisol AM Sample Arterial Blood Potassium Urine Color Urine Clarity Urine pH Ur Specific [place] Urine Protein Urine Glucose (UA) Urine Ketones Urine Blood Urine Nitrate Urine Bilirubin Urine Urobilinogen Ur Leukocyte Esterase Urine WBC (Auto) Urine RBC (Auto) Ur Squamous Epith Cells Urine Bacteria Stool Occult Blood C. difficile Ag & Toxin 03/26/18 11:36 WBC RBC Hgb Hct MCV MCH MCHC RDW Plt Count MPV Neut % (Auto) Lymph % (Auto) [place] % (Auto) Eos % (Auto) Baso % (Auto) Neut # (Auto) Lymph # (Auto) [place] # (Auto) Eos # (Auto) Baso # (Auto) Neutrophils % (Manual) Band Neutrophils % Lymphocytes % (Manual) Monocytes % (Manual) Toxic Granulation Platelet Estimate Large Platelets RBC Morphology Poikilocytosis (manual Ovalocytes [place] Cells PT INR Puncture Site pCO2 pO2 HCO3 ABG pH ABG Total CO2 ABG O2 Saturation ABG Base Excess ABG Hemoglobin ABG Carboxyhemoglobin POC ABG HHb (Measured) ABG Methemoglobin Jake Test ABG Potassium A-a O2 Difference Respiratory Index Hgb O2 Saturation Glucose Lactate Vent Mode Mechanical Rate FiO2 Tidal Volume PEEP Crit Value Called To Crit Value Called By Crit Value Read Back Blood Gas Notified Time Sodium Potassium Chloride Carbon Dioxide Anion Gap BUN Creatinine Est GFR ( Amer) Est GFR (Non-Af Amer) POC Glucose (mg/dL) 201 H Random Glucose Lactic Acid Calcium Phosphorus Magnesium Total Bilirubin AST ALT Alkaline Phosphatase Total Creatine Kinase CK-MB (Mass) Troponin I Total Protein Albumin Globulin Albumin/Globulin Ratio Procalcitonin Free T4 Thyroxine (T4) Free T3 pg/mL Total T3 TSH 3rd Generation Cortisol AM Sample Arterial Blood Potassium Urine Color Urine Clarity Urine pH Ur Specific [place] Urine Protein Urine Glucose (UA) Urine Ketones Urine Blood Urine Nitrate Urine Bilirubin Urine Urobilinogen Ur Leukocyte Esterase Urine WBC (Auto) Urine RBC (Auto) Ur Squamous Epith Cells Urine Bacteria Stool Occult Blood C. difficile Ag & Toxin EKG/Cardiology Studies: Cardiology / EKG Studies 03/25/18 17:14 EKG [ELECTROCARDIOGRAM] Stat Comment: Mode Of Transportation: Reason For Exam: code sepsis Fingerstick Blood Sugar Results: 201 Review of Systems - Review of Systems Systems not reviewed;Unavailable: Intubated Assessment/Plan - Assessment and Plan (Free Text) Assessment: 72 year old female with past medical history of recently diagnosed hyperthyroidism is admitted for intractable diarrhea, N/V likely 2/2 gastroenteritis vs. cholecystitis vs. hyperthyroidism. Abdominal US on admission showed cholelithiasis with gallbladder wall thickening and small amount of pericholecystic fluid which could represent acute cholecystitis. HIDA - negative, cystic duct patent. Patient admitted to ICU for respiratory distress likely 2/2 to thyroid storm. Patient intubated in the ICU and started on Levophed and Bicarb drip. Currently being treat for Thyroid Storm. Patient isn't on sedation with a GCS of 3T. Plan: Neuro: GCS: 3T Will order CT Abd/Pelvis. Sedation: None Cardio A: tachycardia 2/2 to thyroid storm, Hypotension Cont. Propanolol Levophed Drip PRN Vasopressin drip Started. Cardiology on Consult, Recs appreciated. Pulm: Intubated PRVC 18RR, 40% Fi02, 400 TV, and 5 PEEP ABG (03/25) 7.22/32/49/14 ABG (03/26) 7.35/27/179/17.9 Renal A: Metabolic Acidosis, Hypocalcemia, MICHELLE (Cr. from 0.6-1.1) Cont. Sodium Bicarb Drip GI A: Elevated LFTs, Likely Shock liver. Diarrhea, HLD Monitor Pepcid BID Liquid Diet. Stool occult blodd - POSITIVE Consider GI Consult. C Diff Ordered - NEGATIVE Fecal Leukocytes ORdered - F/U Prevalite Started. Endo: A: Hyperthyroidism, Thyroid Storm. TSH= <0.02, T4 - 12.9, Free T3= 6.42, Free T3 pg/ml > 22.80 Cortisol > 616. Tapazole 10mg TID- DISCONTINUED START Propylthiouracil per Primary. Propanolol 10mg Daily Thyroid US: no nodules, cysts, or masses noted F/U Autoimmune Workup Endocrinology Consulted. Heme/Onc A: Thrombycytopenia Monitor plaletes and stop Lovenox if it continues to downtrend Monitor H&H and signs of bleeding. Consider HIT panel. ID: A: Febrile likely 2/2 to thyroid storm vs UTI?, Band Neutrophils, Leukocytosis. NO Leukocytosis Cont. Zosyn | 1Gram of Vancomycin given today per Primary. PRN Tylenol F/U Pancultures | Lactate 12.1 from 11.4 yesterday. ProCal Ordered Solu-Cortef 100mg IV q8H started. Proph Lovenox and Pepcid Patient seen and discussed with ATtending Blanca Carmen, PGY- 1 <Jose Duran - Last Filed: 03/26/18 17:31> CCU Objective - Vital Signs / Intake & Output Vital Signs (Last 4 hours): Vital Signs Pulse Resp BP Pulse Ox 03/26/18 15:46 99/39 L 03/26/18 15:10 82 23 98 03/26/18 15:00 83 24 97 03/26/18 14:50 88 22 97 03/26/18 14:44 88 22 114/50 L 97 03/26/18 14:40 93 H 26 H 98 03/26/18 14:30 93 H 26 H 98 03/26/18 14:20 91 H 26 H 98 03/26/18 14:14 92 H 25 H 113/40 L 98 03/26/18 14:10 91 H 25 H 98 03/26/18 13:50 113/42 L 03/26/18 13:44 113/42 L 03/26/18 13:40 89 25 H 98 Intake and Output (Last 8hrs): Intake & Output 03/26/18 03/26/18 03/26/18 06:59 14:59 22:59 Intake Total 1930.5 2736.7 451.4 Output Total 185 300 50 Balance 1745.5 2436.7 401.4 Weight 98 lb Intake: IV 296.0 245 254 Intake, IV Amount 1634.5 2491.7 197.4 Left Distal Port Internal 322.5 322.5 45 Jugular Left Medial Port Internal 50 750 Jugular Left Proximal Port 1200 1200 150 Internal Jugular left distal port y 12.0 19.2 2.4 left proximal port y 50 200 Output: Urine 185 300 50 Urethral (Garcia) 185 300 50 Other: # Bowel Movements 1 1 1 - Medications Active Medications: Active Medications Generic Name Dose Route Start Last Admin Trade Name Freq PRN Reason Stop Dose Admin Acetaminophen 650 mg 03/25/18 16:30 03/25/18 17:23 Tylenol 650mg/20.3ml Solution Ud PO 650 mg Q4H PRN Administration Temperature above 100.6 Cholestyramine Resin 4 gm 03/26/18 08:15 03/26/18 16:58 Prevalite PO 4 gm Q8H NEREYDA Administration Enoxaparin Sodium 30 mg 03/26/18 13:13 Lovenox SC DAILY NEREYDA Famotidine 20 mg 03/25/18 10:00 03/26/18 17:06 Pepcid PO 20 mg BID NEREYDA Administration Hydrocortisone Sodium Succinate 100 mg 03/26/18 08:00 03/26/18 16:59 Solu-Cortef IV 100 mg Q8H NEREYDA Administration Piperacillin Sod/Tazobactam Sod 3.375 gm in 50 mls @ 100 mls/hr 03/25/18 18: 00 03/26/18 16:59 Zosyn 3.375 Gm Iv Premix IVPB 100 mls/hr Q8H NEREYDA Administration Protocol Norepinephrine Bitartrate 4 mg 254 mls @ 15.24 mls/hr 03/25/18 17:51 15:46 / Dextrose IV 9.84 mcg/min .[id number] PRN 37.5 mls/hr TITRATE PER MD ORDER Administration Protocol 4 MCG/MIN Vasopressin 40 units/ Sodium 42 mls @ 0.63 mls/hr 03/26/18 00:15 03/26/18 13: 50 Chloride IV 0.03 units/min .Q24H NEREYDA 2.4 mls/hr Protocol Administration 0.01 UNITS/MIN Dextrose 500 mls @ 50 mls/hr 03/26/18 05:15 03/26/18 05:27 Dextrose 10% In Water IV 50 mls/hr .Q10H NEREYDA Administration Sodium Bicarbonate 150 meq/ 1,000 mls @ 150 mls/hr 03/26/18 15:45 Dextrose IV .[id number] NEREYDA Metronidazole 500 mg in 100 mls @ 100 mls/hr 03/26/18 22:00 Flagyl IVPB Q8 NEREYDA Protocol Propranolol HCl 10 mg 03/26/18 10:00 03/26/18 09:12 Inderal PO 10 mg DAILY NEREYDA Administration Propylthiouracil 100 mg 03/26/18 13:30 03/26/18 17:07 Propylthiouracil PO 100 mg Q6 NEREYDA Administration - Patient Studies Lab Studies: Microbiology Studies 03/25/18 16:00 Blood Culture - Preliminary Blood-Venous NO GROWTH AFTER 24 HOURS 03/25/18 16:30 Blood Culture - Preliminary Blood-Venous NO GROWTH AFTER 24 HOURS 03/24/18 20:46 Blood Culture - Preliminary Blood NO GROWTH AFTER 24 HOURS 03/24/18 20:46 Blood Culture - Preliminary Blood NO GROWTH AFTER 24 HOURS Lab Studies 03/26/18 03/26/18 03/26/18 Range/Units 11:36 08:54 08:54 WBC (4.8-10.8) K/uL RBC (3.80-5.20) Mil/uL Hgb (11.0-16.0) g/dL Hct (34.0-47.0) % MCV (81.0-99.0) fL MCH (27.0-31.0) pg MCHC (33.0-37.0) g/dL RDW (11.5-14.5) % Plt Count (130-400) K/uL MPV (7.2-11.7) fL Neut % (Auto) (50.0-75.0) % Lymph % (Auto) (20.0-40.0) % [place] % (Auto) (0.0-10.0) % Eos % (Auto) (0.0-4.0) % Baso % (Auto) (0.0-2.0) % Neut # (Auto) (1.8-7.0) K/uL Lymph # (Auto) (1.0-4.3) K/uL [place] # (Auto) (0.0-0.8) K/uL Eos # (Auto) (0.0-0.7) K/uL Baso # (Auto) (0.0-0.2) K/uL Neutrophils % (Manual) (50-75) % Band Neutrophils % (0-2) % Lymphocytes % (Manual) (20-40) % Monocytes % (Manual) (0-10) % Toxic Granulation Platelet Estimate (NORMAL) Large Platelets RBC Morphology Poikilocytosis (manual Ovalocytes Jeff Cells Puncture Site pCO2 (35-45) mm/Hg pO2 (80-100) mm/Hg HCO3 (21-28) mmol/L ABG pH (7.35-7.45) ABG Total CO2 (22-28) mmol/L ABG O2 Saturation (95-98) % ABG Base Excess (-2.0-3.0) mmol/L ABG Hemoglobin (11.7-17.4) g/dL ABG Carboxyhemoglobin (0.5-1.5) % POC ABG HHb (Measured) (0.0-5.0) % ABG Methemoglobin (0.0-3.0) % Jake Test ABG Potassium (3.6-5.2) mmol/L A-a O2 Difference mm/Hg Respiratory Index Hgb O2 Saturation (95.0-98.0) % Glucose (65-105) mg/dl Lactate (0.7-2.1) mmol/L Vent Mode Mechanical Rate FiO2 % Tidal Volume PEEP Crit Value Called To Crit Value Called By Crit Value Read Back Blood Gas Notified Time Sodium (132-148) mmol/L Potassium (3.6-5.2) mmol/L Chloride (98-107) mmol/L Carbon Dioxide (22-30) mmol/L Anion Gap (10-20) BUN (7-17) mg/dL Creatinine (0.7-1.2) mg/dL Est GFR ( Amer) Est GFR (Non-Af Amer) POC Glucose (mg/dL) 201 H (65-110) mg/dL Random Glucose (65-105) mg/dL Calcium (8.6-10.4) mg/dl Phosphorus (2.5-4.5) mg/dL Magnesium (1.6-2.3) mg/dL Total Bilirubin (0.2-1.3) mg/dL AST (14-36) U/L ALT (9-52) U/L Alkaline Phosphatase (38-126) U/L Total Creatine Kinase (30-135) U/L CK-MB (Mass) (0.0-3.38) ng/mL Troponin I (0.00-0.120) ng/mL Total Protein (6.3-8.3) g/dL Albumin (3.5-5.0) g/dL Globulin (2.2-3.9) gm/dL Albumin/Globulin Ratio (1.0-2.1) Procalcitonin 8.51 H (0.19-0.49) NG/ML Free T4 (0.78-2.19) ng/dL Thyroxine (T4) (5.5-11.0) ug/dL Free T3 pg/mL > 22.80 H (2.77-5.27) pg/mL Total T3 6.42 H (1.49-2.60) nmol/L TSH 3rd Generation (0.46-4.68) mIU/L Cortisol AM Sample (4.46-22.7) ug/dL Arterial Blood Potassium (3.6-5.2) mmol/L Stool Occult Blood (NEGATIVE) Stool Leukocytes, Qual (NEGATIVE) C. difficile Ag & Toxin (NEGATIVE) 03/26/18 03/26/18 03/26/18 Range/Units 07:40 06:14 06:14 WBC (4.8-10.8) K/uL RBC (3.80-5.20) Mil/uL Hgb (11.0-16.0) g/dL Hct (34.0-47.0) % MCV (81.0-99.0) fL MCH (27.0-31.0) pg MCHC (33.0-37.0) g/dL RDW (11.5-14.5) % Plt Count (130-400) K/uL MPV (7.2-11.7) fL Neut % (Auto) (50.0-75.0) % Lymph % (Auto) (20.0-40.0) % [place] % (Auto) (0.0-10.0) % Eos % (Auto) (0.0-4.0) % Baso % (Auto) (0.0-2.0) % Neut # (Auto) (1.8-7.0) K/uL Lymph # (Auto) (1.0-4.3) K/uL [place] # (Auto) (0.0-0.8) K/uL Eos # (Auto) (0.0-0.7) K/uL Baso # (Auto) (0.0-0.2) K/uL Neutrophils % (Manual) (50-75) % Band Neutrophils % (0-2) % Lymphocytes % (Manual) (20-40) % Monocytes % (Manual) (0-10) % Toxic Granulation Platelet Estimate (NORMAL) Large Platelets RBC Morphology Poikilocytosis (manual Ovalocytes Jeff Cells Puncture Site pCO2 (35-45) mm/Hg pO2 (80-100) mm/Hg HCO3 (21-28) mmol/L ABG pH (7.35-7.45) ABG Total CO2 (22-28) mmol/L ABG O2 Saturation (95-98) % ABG Base Excess (-2.0-3.0) mmol/L ABG Hemoglobin (11.7-17.4) g/dL ABG Carboxyhemoglobin (0.5-1.5) % POC ABG HHb (Measured) (0.0-5.0) % ABG Methemoglobin (0.0-3.0) % Jake Test ABG Potassium (3.6-5.2) mmol/L A-a O2 Difference mm/Hg Respiratory Index Hgb O2 Saturation (95.0-98.0) % Glucose (65-105) mg/dl Lactate (0.7-2.1) mmol/L Vent Mode Mechanical Rate FiO2 % Tidal Volume PEEP Crit Value Called To Crit Value Called By Crit Value Read Back Blood Gas Notified Time Sodium (132-148) mmol/L Potassium (3.6-5.2) mmol/L Chloride (98-107) mmol/L Carbon Dioxide (22-30) mmol/L Anion Gap (10-20) BUN (7-17) mg/dL Creatinine (0.7-1.2) mg/dL Est GFR ( Amer) Est GFR (Non-Af Amer) POC Glucose (mg/dL) 130 H (65-110) mg/dL Random Glucose (65-105) mg/dL Calcium (8.6-10.4) mg/dl Phosphorus (2.5-4.5) mg/dL Magnesium (1.6-2.3) mg/dL Total Bilirubin (0.2-1.3) mg/dL AST (14-36) U/L ALT (9-52) U/L Alkaline Phosphatase (38-126) U/L Total Creatine Kinase (30-135) U/L CK-MB (Mass) (0.0-3.38) ng/mL Troponin I (0.00-0.120) ng/mL Total Protein (6.3-8.3) g/dL Albumin (3.5-5.0) g/dL Globulin (2.2-3.9) gm/dL Albumin/Globulin Ratio (1.0-2.1) Procalcitonin (0.19-0.49) NG/ML Free T4 > 6.99 H (0.78-2.19) ng/dL Thyroxine (T4) (5.5-11.0) ug/dL Free T3 pg/mL (2.77-5.27) pg/mL Total T3 (1.49-2.60) nmol/L TSH 3rd Generation (0.46-4.68) mIU/L Cortisol AM Sample > 616.0 H (4.46-22.7) ug/dL Arterial Blood Potassium (3.6-5.2) mmol/L Stool Occult Blood (NEGATIVE) Stool Leukocytes, Qual (NEGATIVE) C. difficile Ag & Toxin (NEGATIVE) 03/26/18 03/26/18 03/26/18 Range/Units 06:14 06:13 06:08 WBC 11.9 H (4.8-10.8) K/uL RBC 4.02 (3.80-5.20) Mil/uL Hgb 12.9 (11.0-16.0) g/dL Hct 38.5 (34.0-47.0) % MCV 95.9 (81.0-99.0) fL MCH 32.0 H (27.0-31.0) pg MCHC 33.4 (33.0-37.0) g/dL RDW 14.6 H (11.5-14.5) % Plt Count 82 L (130-400) K/uL MPV 10.7 (7.2-11.7) fL Neut % (Auto) 87.2 H (50.0-75.0) % Lymph % (Auto) 7.3 L (20.0-40.0) % [place] % (Auto) 5.3 (0.0-10.0) % Eos % (Auto) 0.1 (0.0-4.0) % Baso % (Auto) 0.1 (0.0-2.0) % Neut # (Auto) 10.4 H (1.8-7.0) K/uL Lymph # (Auto) 0.9 L (1.0-4.3) K/uL [place] # (Auto) 0.6 (0.0-0.8) K/uL Eos # (Auto) 0.0 (0.0-0.7) K/uL Baso # (Auto) 0.0 (0.0-0.2) K/uL Neutrophils % (Manual) 72 (50-75) % Band Neutrophils % 16 H* (0-2) % Lymphocytes % (Manual) 7 L (20-40) % Monocytes % (Manual) 5 (0-10) % Toxic Granulation Present Platelet Estimate Decreased L (NORMAL) Large Platelets Present RBC Morphology Poikilocytosis (manual Slight Ovalocytes Slight [place] Cells Slight Puncture Site pCO2 (35-45) mm/Hg pO2 (80-100) mm/Hg HCO3 (21-28) mmol/L ABG pH (7.35-7.45) ABG Total CO2 (22-28) mmol/L ABG O2 Saturation (95-98) % ABG Base Excess (-2.0-3.0) mmol/L ABG Hemoglobin (11.7-17.4) g/dL ABG Carboxyhemoglobin (0.5-1.5) % POC ABG HHb (Measured) (0.0-5.0) % ABG Methemoglobin (0.0-3.0) % Jake Test ABG Potassium (3.6-5.2) mmol/L A-a O2 Difference mm/Hg Respiratory Index Hgb O2 Saturation (95.0-98.0) % Glucose (65-105) mg/dl Lactate (0.7-2.1) mmol/L Vent Mode Mechanical Rate FiO2 % Tidal Volume PEEP Crit Value Called To Crit Value Called By Crit Value Read Back Blood Gas Notified Time Sodium 140 (132-148) mmol/L Potassium 4.4 (3.6-5.2) mmol/L Chloride 98 (98-107) mmol/L Carbon Dioxide 16 L (22-30) mmol/L Anion Gap 30 H (10-20) BUN 40 H (7-17) mg/dL Creatinine 1.7 H (0.7-1.2) mg/dL Est GFR ( Amer) 36 Est GFR (Non-Af Amer) 30 POC Glucose (mg/dL) (65-110) mg/dL Random Glucose 44 L (65-105) mg/dL Calcium 7.1 L (8.6-10.4) mg/dl Phosphorus 7.4 H (2.5-4.5) mg/dL Magnesium 1.9 (1.6-2.3) mg/dL Total Bilirubin 5.4 H (0.2-1.3) mg/dL AST 1390 H (14-36) U/L ALT 361 H D (9-52) U/L Alkaline Phosphatase 70 (38-126) U/L Total Creatine Kinase (30-135) U/L CK-MB (Mass) (0.0-3.38) ng/mL Troponin I (0.00-0.120) ng/mL Total Protein 5.7 L (6.3-8.3) g/dL Albumin 2.7 L (3.5-5.0) g/dL Globulin 3.0 (2.2-3.9) gm/dL Albumin/Globulin Ratio 0.9 L (1.0-2.1) Procalcitonin (0.19-0.49) NG/ML Free T4 (0.78-2.19) ng/dL Thyroxine (T4) 14.4 H (5.5-11.0) ug/dL Free T3 pg/mL (2.77-5.27) pg/mL Total T3 (1.49-2.60) nmol/L TSH 3rd Generation < 0.02 L (0.46-4.68) mIU/L Cortisol AM Sample (4.46-22.7) ug/dL Arterial Blood Potassium (3.6-5.2) mmol/L Stool Occult Blood Positive H (NEGATIVE) Stool Leukocytes, Qual (NEGATIVE) C. difficile Ag & Toxin (NEGATIVE) 03/26/18 03/26/18 03/26/18 Range/Units 05:06 05:03 04:25 WBC (4.8-10.8) K/uL RBC (3.80-5.20) Mil/uL Hgb (11.0-16.0) g/dL Hct (34.0-47.0) % MCV (81.0-99.0) fL MCH (27.0-31.0) pg MCHC (33.0-37.0) g/dL RDW (11.5-14.5) % Plt Count (130-400) K/uL MPV (7.2-11.7) fL Neut % (Auto) (50.0-75.0) % Lymph % (Auto) (20.0-40.0) % [place] % (Auto) (0.0-10.0) % Eos % (Auto) (0.0-4.0) % Baso % (Auto) (0.0-2.0) % Neut # (Auto) (1.8-7.0) K/uL Lymph # (Auto) (1.0-4.3) K/uL [place] # (Auto) (0.0-0.8) K/uL Eos # (Auto) (0.0-0.7) K/uL Baso # (Auto) (0.0-0.2) K/uL Neutrophils % (Manual) (50-75) % Band Neutrophils % (0-2) % Lymphocytes % (Manual) (20-40) % Monocytes % (Manual) (0-10) % Toxic Granulation Platelet Estimate (NORMAL) Large Platelets RBC Morphology Poikilocytosis (manual Ovalocytes Jeff Cells Puncture Site Lb pCO2 27 L (35-45) mm/Hg pO2 179 H (80-100) mm/Hg HCO3 17.9 L (21-28) mmol/L ABG pH 7.35 (7.35-7.45) ABG Total CO2 15.7 L (22-28) mmol/L ABG O2 Saturation 99.9 H (95-98) % ABG Base Excess -9.1 L (-2.0-3.0) mmol/L ABG Hemoglobin (11.7-17.4) g/dL ABG Carboxyhemoglobin (0.5-1.5) % POC ABG HHb (Measured) (0.0-5.0) % ABG Methemoglobin (0.0-3.0) % Jake Test Na ABG Potassium 4.0 (3.6-5.2) mmol/L A-a O2 Difference 72.0 mm/Hg Respiratory Index 0.4 Hgb O2 Saturation (95.0-98.0) % Glucose 52 L (65-105) mg/dl Lactate 12.1 H* (0.7-2.1) mmol/L Vent Mode Prvc Mechanical Rate 18 FiO2 40.0 % Tidal Volume 400 PEEP 5 Crit Value Called To Nirmala karimi/rn Crit Value Called By Phil monge/rt Crit Value Read Back Y Blood Gas Notified Time 445 Sodium 134.0 (132-148) mmol/L Potassium (3.6-5.2) mmol/L Chloride 98.0 (98-107) mmol/L Carbon Dioxide (22-30) mmol/L Anion Gap (10-20) BUN (7-17) mg/dL Creatinine (0.7-1.2) mg/dL Est GFR ( Amer) Est GFR (Non-Af Amer) POC Glucose (mg/dL) 62 L 60 L (65-110) mg/dL Random Glucose (65-105) mg/dL Calcium (8.6-10.4) mg/dl Phosphorus (2.5-4.5) mg/dL Magnesium (1.6-2.3) mg/dL Total Bilirubin (0.2-1.3) mg/dL AST (14-36) U/L ALT (9-52) U/L Alkaline Phosphatase (38-126) U/L Total Creatine Kinase (30-135) U/L CK-MB (Mass) (0.0-3.38) ng/mL Troponin I (0.00-0.120) ng/mL Total Protein (6.3-8.3) g/dL Albumin (3.5-5.0) g/dL Globulin (2.2-3.9) gm/dL Albumin/Globulin Ratio (1.0-2.1) Procalcitonin (0.19-0.49) NG/ML Free T4 (0.78-2.19) ng/dL Thyroxine (T4) (5.5-11.0) ug/dL Free T3 pg/mL (2.77-5.27) pg/mL Total T3 (1.49-2.60) nmol/L TSH 3rd Generation (0.46-4.68) mIU/L Cortisol AM Sample (4.46-22.7) ug/dL Arterial Blood Potassium 4.0 (3.6-5.2) mmol/L Stool Occult Blood (NEGATIVE) Stool Leukocytes, Qual (NEGATIVE) C. difficile Ag & Toxin (NEGATIVE) 03/26/18 03/25/18 03/25/18 Range/Units 03:16 23:40 22:21 WBC (4.8-10.8) K/uL RBC (3.80-5.20) Mil/uL Hgb (11.0-16.0) g/dL Hct (34.0-47.0) % MCV (81.0-99.0) fL MCH (27.0-31.0) pg MCHC (33.0-37.0) g/dL RDW (11.5-14.5) % Plt Count (130-400) K/uL MPV (7.2-11.7) fL Neut % (Auto) (50.0-75.0) % Lymph % (Auto) (20.0-40.0) % [place] % (Auto) (0.0-10.0) % Eos % (Auto) (0.0-4.0) % Baso % (Auto) (0.0-2.0) % Neut # (Auto) (1.8-7.0) K/uL Lymph # (Auto) (1.0-4.3) K/uL [place] # (Auto) (0.0-0.8) K/uL Eos # (Auto) (0.0-0.7) K/uL Baso # (Auto) (0.0-0.2) K/uL Neutrophils % (Manual) (50-75) % Band Neutrophils % (0-2) % Lymphocytes % (Manual) (20-40) % Monocytes % (Manual) (0-10) % Toxic Granulation Platelet Estimate (NORMAL) Large Platelets RBC Morphology Poikilocytosis (manual Ovalocytes Jeff Cells Puncture Site Lb pCO2 26 L (35-45) mm/Hg pO2 198 H (80-100) mm/Hg HCO3 13.6 L (21-28) mmol/L ABG pH 7.24 L (7.35-7.45) ABG Total CO2 11.9 L (22-28) mmol/L ABG O2 Saturation 100.3 H (95-98) % ABG Base Excess -14.6 L (-2.0-3.0) mmol/L ABG Hemoglobin (11.7-17.4) g/dL ABG Carboxyhemoglobin (0.5-1.5) % POC ABG HHb (Measured) (0.0-5.0) % ABG Methemoglobin (0.0-3.0) % Jake Test Na ABG Potassium 4.0 (3.6-5.2) mmol/L A-a O2 Difference 55.0 mm/Hg Respiratory Index 0.3 Hgb O2 Saturation (95.0-98.0) % Glucose 77 (65-105) mg/dl Lactate 11.4 H* (0.7-2.1) mmol/L Vent Mode Prvc Mechanical Rate 18 FiO2 40.0 % Tidal Volume 400 PEEP 5 Crit Value Called To Dr. gomez Crit Value Called By Pj mancuso Crit Value Read Back Y Blood Gas Notified Time 2225 Sodium 133.0 (132-148) mmol/L Potassium (3.6-5.2) mmol/L Chloride 99.0 (98-107) mmol/L Carbon Dioxide (22-30) mmol/L Anion Gap (10-20) BUN (7-17) mg/dL Creatinine (0.7-1.2) mg/dL Est GFR ( Amer) Est GFR (Non-Af Amer) POC Glucose (mg/dL) 79 (65-110) mg/dL Random Glucose (65-105) mg/dL Calcium (8.6-10.4) mg/dl Phosphorus (2.5-4.5) mg/dL Magnesium (1.6-2.3) mg/dL Total Bilirubin (0.2-1.3) mg/dL AST (14-36) U/L ALT (9-52) U/L Alkaline Phosphatase (38-126) U/L Total Creatine Kinase 3135 H (30-135) U/L CK-MB (Mass) 21.2 H (0.0-3.38) ng/mL Troponin I 0.1160 (0.00-0.120) ng/mL Total Protein (6.3-8.3) g/dL Albumin (3.5-5.0) g/dL Globulin (2.2-3.9) gm/dL Albumin/Globulin Ratio (1.0-2.1) Procalcitonin (0.19-0.49) NG/ML Free T4 (0.78-2.19) ng/dL Thyroxine (T4) (5.5-11.0) ug/dL Free T3 pg/mL (2.77-5.27) pg/mL Total T3 (1.49-2.60) nmol/L TSH 3rd Generation (0.46-4.68) mIU/L Cortisol AM Sample (4.46-22.7) ug/dL Arterial Blood Potassium 4.0 (3.6-5.2) mmol/L Stool Occult Blood (NEGATIVE) Stool Leukocytes, Qual (NEGATIVE) C. difficile Ag & Toxin (NEGATIVE) 03/25/18 03/25/18 03/25/18 Range/Units 20:42 20:42 20:42 WBC 8.8 (4.8-10.8) K/uL RBC 4.13 (3.80-5.20) Mil/uL Hgb 13.3 (11.0-16.0) g/dL Hct 40.0 (34.0-47.0) % MCV 97.0 (81.0-99.0) fL MCH 32.1 H (27.0-31.0) pg MCHC 33.1 (33.0-37.0) g/dL RDW 14.8 H (11.5-14.5) % Plt Count 67 L (130-400) K/uL MPV 9.3 (7.2-11.7) fL Neut % (Auto) 86.3 H (50.0-75.0) % Lymph % (Auto) 5.5 L (20.0-40.0) % [place] % (Auto) 6.8 (0.0-10.0) % Eos % (Auto) 0.7 (0.0-4.0) % Baso % (Auto) 0.7 (0.0-2.0) % Neut # (Auto) 7.6 H (1.8-7.0) K/uL Lymph # (Auto) 0.5 L (1.0-4.3) K/uL [place] # (Auto) 0.6 (0.0-0.8) K/uL Eos # (Auto) 0.1 (0.0-0.7) K/uL Baso # (Auto) 0.1 (0.0-0.2) K/uL Neutrophils % (Manual) 92 H (50-75) % Band Neutrophils % 2 (0-2) % Lymphocytes % (Manual) 3 L (20-40) % Monocytes % (Manual) 3 (0-10) % Toxic Granulation Platelet Estimate Decreased L (NORMAL) Large Platelets RBC Morphology Normal Poikilocytosis (manual Ovalocytes [place] Cells Puncture Site pCO2 (35-45) mm/Hg pO2 (80-100) mm/Hg HCO3 (21-28) mmol/L ABG pH (7.35-7.45) ABG Total CO2 (22-28) mmol/L ABG O2 Saturation (95-98) % ABG Base Excess (-2.0-3.0) mmol/L ABG Hemoglobin (11.7-17.4) g/dL ABG Carboxyhemoglobin (0.5-1.5) % POC ABG HHb (Measured) (0.0-5.0) % ABG Methemoglobin (0.0-3.0) % Jake Test ABG Potassium (3.6-5.2) mmol/L A-a O2 Difference mm/Hg Respiratory Index Hgb O2 Saturation (95.0-98.0) % Glucose (65-105) mg/dl Lactate (0.7-2.1) mmol/L Vent Mode Mechanical Rate FiO2 % Tidal Volume PEEP Crit Value Called To Crit Value Called By Crit Value Read Back Blood Gas Notified Time Sodium 137 (132-148) mmol/L Potassium 4.2 (3.6-5.2) mmol/L Chloride 102 (98-107) mmol/L Carbon Dioxide 12 L (22-30) mmol/L Anion Gap 27 H (10-20) BUN 35 H (7-17) mg/dL Creatinine 1.4 H (0.7-1.2) mg/dL Est GFR ( Amer) 45 Est GFR (Non-Af Amer) 37 POC Glucose (mg/dL) (65-110) mg/dL Random Glucose 120 H (65-105) mg/dL Calcium 7.6 L (8.6-10.4) mg/dl Phosphorus (2.5-4.5) mg/dL Magnesium (1.6-2.3) mg/dL Total Bilirubin 4.8 H (0.2-1.3) mg/dL AST 974 H D (14-36) U/L ALT 234 H D (9-52) U/L Alkaline Phosphatase 75 (38-126) U/L Total Creatine Kinase (30-135) U/L CK-MB (Mass) (0.0-3.38) ng/mL Troponin I (0.00-0.120) ng/mL Total Protein 5.8 L (6.3-8.3) g/dL Albumin 2.7 L (3.5-5.0) g/dL Globulin 3.0 (2.2-3.9) gm/dL Albumin/Globulin Ratio 0.9 L (1.0-2.1) Procalcitonin 7.60 H (0.19-0.49) NG/ML Free T4 (0.78-2.19) ng/dL Thyroxine (T4) (5.5-11.0) ug/dL Free T3 pg/mL (2.77-5.27) pg/mL Total T3 (1.49-2.60) nmol/L TSH 3rd Generation (0.46-4.68) mIU/L Cortisol AM Sample (4.46-22.7) ug/dL Arterial Blood Potassium (3.6-5.2) mmol/L Stool Occult Blood (NEGATIVE) Stool Leukocytes, Qual (NEGATIVE) C. difficile Ag & Toxin (NEGATIVE) 03/25/18 03/25/18 03/25/18 Range/Units 20:40 18:07 17:44 WBC (4.8-10.8) K/uL RBC (3.80-5.20) Mil/uL Hgb (11.0-16.0) g/dL Hct (34.0-47.0) % MCV (81.0-99.0) fL MCH (27.0-31.0) pg MCHC (33.0-37.0) g/dL RDW (11.5-14.5) % Plt Count (130-400) K/uL MPV (7.2-11.7) fL Neut % (Auto) (50.0-75.0) % Lymph % (Auto) (20.0-40.0) % [place] % (Auto) (0.0-10.0) % Eos % (Auto) (0.0-4.0) % Baso % (Auto) (0.0-2.0) % Neut # (Auto) (1.8-7.0) K/uL Lymph # (Auto) (1.0-4.3) K/uL [place] # (Auto) (0.0-0.8) K/uL Eos # (Auto) (0.0-0.7) K/uL Baso # (Auto) (0.0-0.2) K/uL Neutrophils % (Manual) (50-75) % Band Neutrophils % (0-2) % Lymphocytes % (Manual) (20-40) % Monocytes % (Manual) (0-10) % Toxic Granulation Platelet Estimate (NORMAL) Large Platelets RBC Morphology Poikilocytosis (manual Ovalocytes [place] Cells Puncture Site Line pCO2 32 L (35-45) mm/Hg pO2 49 L (80-100) mm/Hg HCO3 14.0 L (21-28) mmol/L ABG pH 7.22 L (7.35-7.45) ABG Total CO2 14.1 L (22-28) mmol/L ABG O2 Saturation 82.5 L (95-98) % ABG Base Excess -13.5 L (-2.0-3.0) mmol/L ABG Hemoglobin 12.4 (11.7-17.4) g/dL ABG Carboxyhemoglobin 2.1 H (0.5-1.5) % POC ABG HHb (Measured) 17.0 H (0.0-5.0) % ABG Methemoglobin 0.8 (0.0-3.0) % Jake Test Na ABG Potassium (3.6-5.2) mmol/L A-a O2 Difference 196.0 mm/Hg Respiratory Index 4.0 Hgb O2 Saturation 80.1 L (95.0-98.0) % Glucose (65-105) mg/dl Lactate (0.7-2.1) mmol/L Vent Mode Prvc Mechanical Rate 18 FiO2 40.0 % Tidal Volume 400 PEEP 5 Crit Value Called To Crit Value Called By Crit Value Read Back Blood Gas Notified Time Sodium (132-148) mmol/L Potassium (3.6-5.2) mmol/L Chloride (98-107) mmol/L Carbon Dioxide (22-30) mmol/L Anion Gap (10-20) BUN (7-17) mg/dL Creatinine (0.7-1.2) mg/dL Est GFR ( Amer) Est GFR (Non-Af Amer) POC Glucose (mg/dL) 136 H (65-110) mg/dL Random Glucose (65-105) mg/dL Calcium (8.6-10.4) mg/dl Phosphorus (2.5-4.5) mg/dL Magnesium (1.6-2.3) mg/dL Total Bilirubin (0.2-1.3) mg/dL AST (14-36) U/L ALT (9-52) U/L Alkaline Phosphatase (38-126) U/L Total Creatine Kinase 854 H (30-135) U/L CK-MB (Mass) 5.47 H (0.0-3.38) ng/mL Troponin I 0.1050 (0.00-0.120) ng/mL Total Protein (6.3-8.3) g/dL Albumin (3.5-5.0) g/dL Globulin (2.2-3.9) gm/dL Albumin/Globulin Ratio (1.0-2.1) Procalcitonin (0.19-0.49) NG/ML Free T4 (0.78-2.19) ng/dL Thyroxine (T4) 12.9 H (5.5-11.0) ug/dL Free T3 pg/mL (2.77-5.27) pg/mL Total T3 (1.49-2.60) nmol/L TSH 3rd Generation (0.46-4.68) mIU/L Cortisol AM Sample (4.46-22.7) ug/dL Arterial Blood Potassium (3.6-5.2) mmol/L Stool Occult Blood (NEGATIVE) Stool Leukocytes, Qual (NEGATIVE) C. difficile Ag & Toxin (NEGATIVE) 03/25/18 Range/Units 08:15 WBC (4.8-10.8) K/uL RBC (3.80-5.20) Mil/uL Hgb (11.0-16.0) g/dL Hct (34.0-47.0) % MCV (81.0-99.0) fL MCH (27.0-31.0) pg MCHC (33.0-37.0) g/dL RDW (11.5-14.5) % Plt Count (130-400) K/uL MPV (7.2-11.7) fL Neut % (Auto) (50.0-75.0) % Lymph % (Auto) (20.0-40.0) % [place] % (Auto) (0.0-10.0) % Eos % (Auto) (0.0-4.0) % Baso % (Auto) (0.0-2.0) % Neut # (Auto) (1.8-7.0) K/uL Lymph # (Auto) (1.0-4.3) K/uL [place] # (Auto) (0.0-0.8) K/uL Eos # (Auto) (0.0-0.7) K/uL Baso # (Auto) (0.0-0.2) K/uL Neutrophils % (Manual) (50-75) % Band Neutrophils % (0-2) % Lymphocytes % (Manual) (20-40) % Monocytes % (Manual) (0-10) % Toxic Granulation Platelet Estimate (NORMAL) Large Platelets RBC Morphology Poikilocytosis (manual Ovalocytes Jeff Cells Puncture Site pCO2 (35-45) mm/Hg pO2 (80-100) mm/Hg HCO3 (21-28) mmol/L ABG pH (7.35-7.45) ABG Total CO2 (22-28) mmol/L ABG O2 Saturation (95-98) % ABG Base Excess (-2.0-3.0) mmol/L ABG Hemoglobin (11.7-17.4) g/dL ABG Carboxyhemoglobin (0.5-1.5) % POC ABG HHb (Measured) (0.0-5.0) % ABG Methemoglobin (0.0-3.0) % Jake Test ABG Potassium (3.6-5.2) mmol/L A-a O2 Difference mm/Hg Respiratory Index Hgb O2 Saturation (95.0-98.0) % Glucose (65-105) mg/dl Lactate (0.7-2.1) mmol/L Vent Mode Mechanical Rate FiO2 % Tidal Volume PEEP Crit Value Called To Crit Value Called By Crit Value Read Back Blood Gas Notified Time Sodium (132-148) mmol/L Potassium (3.6-5.2) mmol/L Chloride (98-107) mmol/L Carbon Dioxide (22-30) mmol/L Anion Gap (10-20) BUN (7-17) mg/dL Creatinine (0.7-1.2) mg/dL Est GFR ( Amer) Est GFR (Non-Af Amer) POC Glucose (mg/dL) (65-110) mg/dL Random Glucose (65-105) mg/dL Calcium (8.6-10.4) mg/dl Phosphorus (2.5-4.5) mg/dL Magnesium (1.6-2.3) mg/dL Total Bilirubin (0.2-1.3) mg/dL AST (14-36) U/L ALT (9-52) U/L Alkaline Phosphatase (38-126) U/L Total Creatine Kinase (30-135) U/L CK-MB (Mass) (0.0-3.38) ng/mL Troponin I (0.00-0.120) ng/mL Total Protein (6.3-8.3) g/dL Albumin (3.5-5.0) g/dL Globulin (2.2-3.9) gm/dL Albumin/Globulin Ratio (1.0-2.1) Procalcitonin (0.19-0.49) NG/ML Free T4 (0.78-2.19) ng/dL Thyroxine (T4) (5.5-11.0) ug/dL Free T3 pg/mL (2.77-5.27) pg/mL Total T3 (1.49-2.60) nmol/L TSH 3rd Generation (0.46-4.68) mIU/L Cortisol AM Sample (4.46-22.7) ug/dL Arterial Blood Potassium (3.6-5.2) mmol/L Stool Occult Blood (NEGATIVE) Stool Leukocytes, Qual Positive H (NEGATIVE) C. difficile Ag & Toxin Negative (NEGATIVE) Laboratory Results - last 24 hr 03/25/18 03/25/18 03/25/18 08:15 17:44 18:07 WBC RBC Hgb Hct MCV MCH MCHC RDW Plt Count MPV Neut % (Auto) Lymph % (Auto) [place] % (Auto) Eos % (Auto) Baso % (Auto) Neut # (Auto) Lymph # (Auto) [place] # (Auto) Eos # (Auto) Baso # (Auto) Neutrophils % (Manual) Band Neutrophils % Lymphocytes % (Manual) Monocytes % (Manual) Toxic Granulation Platelet Estimate Large Platelets RBC Morphology Poikilocytosis (manual Ovalocytes Jeff Cells Puncture Site Line pCO2 32 L pO2 49 L HCO3 14.0 L ABG pH 7.22 L ABG Total CO2 14.1 L ABG O2 Saturation 82.5 L ABG Base Excess -13.5 L ABG Hemoglobin 12.4 ABG Carboxyhemoglobin 2.1 H POC ABG HHb (Measured) 17.0 H ABG Methemoglobin 0.8 Jake Test Na ABG Potassium A-a O2 Difference 196.0 Respiratory Index 4.0 Hgb O2 Saturation 80.1 L Glucose Lactate Vent Mode Prvc Mechanical Rate 18 FiO2 40.0 Tidal Volume 400 PEEP 5 Crit Value Called To Crit Value Called By Crit Value Read Back Blood Gas Notified Time Sodium Potassium Chloride Carbon Dioxide Anion Gap BUN Creatinine Est GFR ( Amer) Est GFR (Non-Af Amer) POC Glucose (mg/dL) Random Glucose Calcium Phosphorus Magnesium Total Bilirubin AST ALT Alkaline Phosphatase Total Creatine Kinase 854 H CK-MB (Mass) 5.47 H Troponin I 0.1050 Total Protein Albumin Globulin Albumin/Globulin Ratio Procalcitonin Free T4 Thyroxine (T4) 12.9 H Free T3 pg/mL Total T3 TSH 3rd Generation Cortisol AM Sample Arterial Blood Potassium Stool Occult Blood Stool Leukocytes, Qual Positive H C. difficile Ag & Toxin Negative 03/25/18 03/25/18 03/25/18 20:40 20:42 20:42 WBC 8.8 RBC 4.13 Hgb 13.3 Hct 40.0 MCV 97.0 MCH 32.1 H MCHC 33.1 RDW 14.8 H Plt Count 67 L MPV 9.3 Neut % (Auto) 86.3 H Lymph % (Auto) 5.5 L [place] % (Auto) 6.8 Eos % (Auto) 0.7 Baso % (Auto) 0.7 Neut # (Auto) 7.6 H Lymph # (Auto) 0.5 L [place] # (Auto) 0.6 Eos # (Auto) 0.1 Baso # (Auto) 0.1 Neutrophils % (Manual) 92 H Band Neutrophils % 2 Lymphocytes % (Manual) 3 L Monocytes % (Manual) 3 Toxic Granulation Platelet Estimate Decreased L Large Platelets RBC Morphology Normal Poikilocytosis (manual Ovalocytes Jeff Cells Puncture Site pCO2 pO2 HCO3 ABG pH ABG Total CO2 ABG O2 Saturation ABG Base Excess ABG Hemoglobin ABG Carboxyhemoglobin POC ABG HHb (Measured) ABG Methemoglobin Jake Test ABG Potassium A-a O2 Difference Respiratory Index Hgb O2 Saturation Glucose Lactate Vent Mode Mechanical Rate FiO2 Tidal Volume PEEP Crit Value Called To Crit Value Called By Crit Value Read Back Blood Gas Notified Time Sodium Potassium Chloride Carbon Dioxide Anion Gap BUN Creatinine Est GFR ( Amer) Est GFR (Non-Af Amer) POC Glucose (mg/dL) 136 H Random Glucose Calcium Phosphorus Magnesium Total Bilirubin AST ALT Alkaline Phosphatase Total Creatine Kinase CK-MB (Mass) Troponin I Total Protein Albumin Globulin Albumin/Globulin Ratio Procalcitonin 7.60 H Free T4 Thyroxine (T4) Free T3 pg/mL Total T3 TSH 3rd Generation Cortisol AM Sample Arterial Blood Potassium Stool Occult Blood Stool Leukocytes, Qual C. difficile Ag & Toxin 03/25/18 03/25/18 03/25/18 20:42 22:21 23:40 WBC RBC Hgb Hct MCV MCH MCHC RDW Plt Count MPV Neut % (Auto) Lymph % (Auto) [place] % (Auto) Eos % (Auto) Baso % (Auto) Neut # (Auto) Lymph # (Auto) [place] # (Auto) Eos # (Auto) Baso # (Auto) Neutrophils % (Manual) Band Neutrophils % Lymphocytes % (Manual) Monocytes % (Manual) Toxic Granulation Platelet Estimate Large Platelets RBC Morphology Poikilocytosis (manual Ovalocytes [place] Cells Puncture Site Lb pCO2 26 L pO2 198 H HCO3 13.6 L ABG pH 7.24 L ABG Total CO2 11.9 L ABG O2 Saturation 100.3 H ABG Base Excess -14.6 L ABG Hemoglobin ABG Carboxyhemoglobin POC ABG HHb (Measured) ABG Methemoglobin Jake Test Na ABG Potassium 4.0 A-a O2 Difference 55.0 Respiratory Index 0.3 Hgb O2 Saturation Glucose 77 Lactate 11.4 H* Vent Mode Prvc Mechanical Rate 18 FiO2 40.0 Tidal Volume 400 PEEP 5 Crit Value Called To Dr. gomez Crit Value Called By Pj mallavo Crit Value Read Back Y Blood Gas Notified Time 2225 Sodium 137 133.0 Potassium 4.2 Chloride 102 99.0 Carbon Dioxide 12 L Anion Gap 27 H BUN 35 H Creatinine 1.4 H Est GFR ( Amer) 45 Est GFR (Non-Af Amer) 37 POC Glucose (mg/dL) 79 Random Glucose 120 H Calcium 7.6 L Phosphorus Magnesium Total Bilirubin 4.8 H AST 974 H D ALT 234 H D Alkaline Phosphatase 75 Total Creatine Kinase CK-MB (Mass) Troponin I Total Protein 5.8 L Albumin 2.7 L Globulin 3.0 Albumin/Globulin Ratio 0.9 L Procalcitonin Free T4 Thyroxine (T4) Free T3 pg/mL Total T3 TSH 3rd Generation Cortisol AM Sample Arterial Blood Potassium 4.0 Stool Occult Blood Stool Leukocytes, Qual C. difficile Ag & Toxin 03/26/18 03/26/18 03/26/18 03:16 04:25 05:03 WBC RBC Hgb Hct MCV MCH MCHC RDW Plt Count MPV Neut % (Auto) Lymph % (Auto) [place] % (Auto) Eos % (Auto) Baso % (Auto) Neut # (Auto) Lymph # (Auto) [place] # (Auto) Eos # (Auto) Baso # (Auto) Neutrophils % (Manual) Band Neutrophils % Lymphocytes % (Manual) Monocytes % (Manual) Toxic Granulation Platelet Estimate Large Platelets RBC Morphology Poikilocytosis (manual Ovalocytes [place] Cells Puncture Site Lb pCO2 27 L pO2 179 H HCO3 17.9 L ABG pH 7.35 ABG Total CO2 15.7 L ABG O2 Saturation 99.9 H ABG Base Excess -9.1 L ABG Hemoglobin ABG Carboxyhemoglobin POC ABG HHb (Measured) ABG Methemoglobin Jake Test Na ABG Potassium 4.0 A-a O2 Difference 72.0 Respiratory Index 0.4 Hgb O2 Saturation Glucose 52 L Lactate 12.1 H* Vent Mode Prvc Mechanical Rate 18 FiO2 40.0 Tidal Volume 400 PEEP 5 Crit Value Called To Nirmala karimi/rn Crit Value Called By Phil monge/rt Crit Value Read Back Y Blood Gas Notified Time 445 Sodium 134.0 Potassium Chloride 98.0 Carbon Dioxide Anion Gap BUN Creatinine Est GFR ( Amer) Est GFR (Non-Af Amer) POC Glucose (mg/dL) 60 L Random Glucose Calcium Phosphorus Magnesium Total Bilirubin AST ALT Alkaline Phosphatase Total Creatine Kinase 3135 H CK-MB (Mass) 21.2 H Troponin I 0.1160 Total Protein Albumin Globulin Albumin/Globulin Ratio Procalcitonin Free T4 Thyroxine (T4) Free T3 pg/mL Total T3 TSH 3rd Generation Cortisol AM Sample Arterial Blood Potassium 4.0 Stool Occult Blood Stool Leukocytes, Qual C. difficile Ag & Toxin 03/26/18 03/26/18 03/26/18 05:06 06:08 06:13 WBC 11.9 H RBC 4.02 Hgb 12.9 Hct 38.5 MCV 95.9 MCH 32.0 H MCHC 33.4 RDW 14.6 H Plt Count 82 L MPV 10.7 Neut % (Auto) 87.2 H Lymph % (Auto) 7.3 L [place] % (Auto) 5.3 Eos % (Auto) 0.1 Baso % (Auto) 0.1 Neut # (Auto) 10.4 H Lymph # (Auto) 0.9 L [place] # (Auto) 0.6 Eos # (Auto) 0.0 Baso # (Auto) 0.0 Neutrophils % (Manual) 72 Band Neutrophils % 16 H* Lymphocytes % (Manual) 7 L Monocytes % (Manual) 5 Toxic Granulation Present Platelet Estimate Decreased L Large Platelets Present RBC Morphology Poikilocytosis (manual Slight Ovalocytes Slight Jeff Cells Slight Puncture Site pCO2 pO2 HCO3 ABG pH ABG Total CO2 ABG O2 Saturation ABG Base Excess ABG Hemoglobin ABG Carboxyhemoglobin POC ABG HHb (Measured) ABG Methemoglobin Jake Test ABG Potassium A-a O2 Difference Respiratory Index Hgb O2 Saturation Glucose Lactate Vent Mode Mechanical Rate FiO2 Tidal Volume PEEP Crit Value Called To Crit Value Called By Crit Value Read Back Blood Gas Notified Time Sodium Potassium Chloride Carbon Dioxide Anion Gap BUN Creatinine Est GFR ( Amer) Est GFR (Non-Af Amer) POC Glucose (mg/dL) 62 L Random Glucose Calcium Phosphorus Magnesium Total Bilirubin AST ALT Alkaline Phosphatase Total Creatine Kinase CK-MB (Mass) Troponin I Total Protein Albumin Globulin Albumin/Globulin Ratio Procalcitonin Free T4 Thyroxine (T4) Free T3 pg/mL Total T3 TSH 3rd Generation Cortisol AM Sample Arterial Blood Potassium Stool Occult Blood Positive H Stool Leukocytes, Qual C. difficile Ag & Toxin 03/26/18 03/26/18 03/26/18 06:14 06:14 06:14 WBC RBC Hgb Hct MCV MCH MCHC RDW Plt Count MPV Neut % (Auto) Lymph % (Auto) [place] % (Auto) Eos % (Auto) Baso % (Auto) Neut # (Auto) Lymph # (Auto) [place] # (Auto) Eos # (Auto) Baso # (Auto) Neutrophils % (Manual) Band Neutrophils % Lymphocytes % (Manual) Monocytes % (Manual) Toxic Granulation Platelet Estimate Large Platelets RBC Morphology Poikilocytosis (manual Ovalocytes Jeff Cells Puncture Site pCO2 pO2 HCO3 ABG pH ABG Total CO2 ABG O2 Saturation ABG Base Excess ABG Hemoglobin ABG Carboxyhemoglobin POC ABG HHb (Measured) ABG Methemoglobin Jake Test ABG Potassium A-a O2 Difference Respiratory Index Hgb O2 Saturation Glucose Lactate Vent Mode Mechanical Rate FiO2 Tidal Volume PEEP Crit Value Called To Crit Value Called By Crit Value Read Back Blood Gas Notified Time Sodium 140 Potassium 4.4 Chloride 98 Carbon Dioxide 16 L Anion Gap 30 H BUN 40 H Creatinine 1.7 H Est GFR ( Amer) 36 Est GFR (Non-Af Amer) 30 POC Glucose (mg/dL) Random Glucose 44 L Calcium 7.1 L Phosphorus 7.4 H Magnesium 1.9 Total Bilirubin 5.4 H AST 1390 H ALT 361 H D Alkaline Phosphatase 70 Total Creatine Kinase CK-MB (Mass) Troponin I Total Protein 5.7 L Albumin 2.7 L Globulin 3.0 Albumin/Globulin Ratio 0.9 L Procalcitonin Free T4 > 6.99 H Thyroxine (T4) 14.4 H Free T3 pg/mL Total T3 TSH 3rd Generation < 0.02 L Cortisol AM Sample > 616.0 H Arterial Blood Potassium Stool Occult Blood Stool Leukocytes, Qual C. difficile Ag & Toxin 03/26/18 03/26/18 03/26/18 07:40 08:54 08:54 WBC RBC Hgb Hct MCV MCH MCHC RDW Plt Count MPV Neut % (Auto) Lymph % (Auto) [place] % (Auto) Eos % (Auto) Baso % (Auto) Neut # (Auto) Lymph # (Auto) [place] # (Auto) Eos # (Auto) Baso # (Auto) Neutrophils % (Manual) Band Neutrophils % Lymphocytes % (Manual) Monocytes % (Manual) Toxic Granulation Platelet Estimate Large Platelets RBC Morphology Poikilocytosis (manual Ovalocytes Jeff Cells Puncture Site pCO2 pO2 HCO3 ABG pH ABG Total CO2 ABG O2 Saturation ABG Base Excess ABG Hemoglobin ABG Carboxyhemoglobin POC ABG HHb (Measured) ABG Methemoglobin Jake Test ABG Potassium A-a O2 Difference Respiratory Index Hgb O2 Saturation Glucose Lactate Vent Mode Mechanical Rate FiO2 Tidal Volume PEEP Crit Value Called To Crit Value Called By Crit Value Read Back Blood Gas Notified Time Sodium Potassium Chloride Carbon Dioxide Anion Gap BUN Creatinine Est GFR ( Amer) Est GFR (Non-Af Amer) POC Glucose (mg/dL) 130 H Random Glucose Calcium Phosphorus Magnesium Total Bilirubin AST ALT Alkaline Phosphatase Total Creatine Kinase CK-MB (Mass) Troponin I Total Protein Albumin Globulin Albumin/Globulin Ratio Procalcitonin 8.51 H Free T4 Thyroxine (T4) Free T3 pg/mL > 22.80 H Total T3 6.42 H TSH 3rd Generation Cortisol AM Sample Arterial Blood Potassium Stool Occult Blood Stool Leukocytes, Qual C. difficile Ag & Toxin 03/26/18 11:36 WBC RBC Hgb Hct MCV MCH MCHC RDW Plt Count MPV Neut % (Auto) Lymph % (Auto) [place] % (Auto) Eos % (Auto) Baso % (Auto) Neut # (Auto) Lymph # (Auto) [place] # (Auto) Eos # (Auto) Baso # (Auto) Neutrophils % (Manual) Band Neutrophils % Lymphocytes % (Manual) Monocytes % (Manual) Toxic Granulation Platelet Estimate Large Platelets RBC Morphology Poikilocytosis (manual Ovalocytes [place] Cells Puncture Site pCO2 pO2 HCO3 ABG pH ABG Total CO2 ABG O2 Saturation ABG Base Excess ABG Hemoglobin ABG Carboxyhemoglobin POC ABG HHb (Measured) ABG Methemoglobin Jake Test ABG Potassium A-a O2 Difference Respiratory Index Hgb O2 Saturation Glucose Lactate Vent Mode Mechanical Rate FiO2 Tidal Volume PEEP Crit Value Called To Crit Value Called By Crit Value Read Back Blood Gas Notified Time Sodium Potassium Chloride Carbon Dioxide Anion Gap BUN Creatinine Est GFR ( Amer) Est GFR (Non-Af Amer) POC Glucose (mg/dL) 201 H Random Glucose Calcium Phosphorus Magnesium Total Bilirubin AST ALT Alkaline Phosphatase Total Creatine Kinase CK-MB (Mass) Troponin I Total Protein Albumin Globulin Albumin/Globulin Ratio Procalcitonin Free T4 Thyroxine (T4) Free T3 pg/mL Total T3 TSH 3rd Generation Cortisol AM Sample Arterial Blood Potassium Stool Occult Blood Stool Leukocytes, Qual C. difficile Ag & Toxin EKG/Cardiology Studies: Cardiology / EKG Studies 03/25/18 17:14 EKG [ELECTROCARDIOGRAM] Stat Comment: Mode Of Transportation: Reason For Exam: code sepsis Attending/Attestation - Attestation I have personally seen and examined this patient.: Yes I have fully participated in the care of the patient.: Yes I have reviewed all pertinent clinical information: Yes Notes (Text): 03/26/18 17:30 Patient seen and examined in the intensive Remained intubated on ventilatory support FiO2 40% On bicarbonate drip for metabolic acidosis Started on two pressors last night for hypotension Continue steroids Continue beta fabienne Started on PTU does not respond to vocal commands CT of the head Continue antibiotics Infectious disease Gentle hydration"
[2018-03-26] MEDS ORDERED: Sodium Bicarbonate 8.4% 150 MEQ in Dextrose 5% In Water 1,000 ML IV SCH (15:45)
[2018-03-26] MEDS ORDERED: Sodium Bicarbonate 8.4% 150 MEQ in Dextrose 5% In Water 850 ML IV SCH (15:45)
[2018-03-26] MEDS: Sodium Bicarbonate 8.4% 150 MEQ in Dextrose 5% In Water 850 ML IV SCH ×2 (16:00→22:54)
--- NOTE | 2018-03-26 16:38 | CP.PCM.CON ---
History of Present Illness - History of Present Illness History of Present Illness: Initial Nephrology Consultation: Assessment: critical non-oliguric Acute Kidney Injury (N17.9) likely due to sepsis/shock, contrast active smoker hyperthyroidism abnormal LFT, cholelithiasis and ? cholecystitis, thyroid storm, acute respi failure s/p intubation septic shock, lactic acidosis coagulopathic, thrombocytopenia Rhabdomyolysis, hyperphosphatemia Plan No acute need for renal replacement therapy at this time but will need close follow up. BP control with meds as ordered (on vasopressors). Patient not on ACEI/ARB due to MICHELLE. maintain hemodynamics stable, avoid hypotension Monitor Input/Output, daily weights and renal function with basic metabolic panel, CPK and phos bicarb drip as D5W with 150 meq bicarb ordered. if need to use 0.45% saline, please do not add more than 75 meq bicarb (to keep fluid isotonic) Dose meds/antibiotics for reduced GFR. Avoid fleets enema/magnesium based laxatives. Avoid nephrotoxins/NSAIDs/ iodinated contrast (unless needed emergently) Glycemic control Further work up/management as per primary team Thanks for allowing me to participate in care of your patient. Will follow patient with you. Please call if any Qs. d/w team and family Dr Sonu Hodge Office: [phone] Chief Complaint; unable HPI: Pt is a 72 F active smoker and recently diagnosed with hyperthyroidism came with loose stool and found to have abnormal LFT, cholelithiasis and ? cholecystitis, thyroid storm, respi failure and intubated, transferred to ICU also with septic shock, lactic acidosis and MICHELLE hence renal consulted no known OTC/herbal meds or NSAIDs had recent iodinated contrast exposure. Noted obvious episodes of low BP. ROS: unable Physical Examination: General Appearance: now in no acute respiratory distress, ill appearing intubated. Vitals reviewed and noted as below Head; Atraumatic, normocephalic ENT: no ulcers no thrush. Tongue is midline/dry. Oropharynx: no rash or ulcers.orally intubated EYES: Pupils are equal, round and reactive to light accommodation. Eye muscles and extraocular movement intact. Sclera is icteric. Neck; supple no lymphadenopathy, no thyromegaly or bruit Lungs: Normal respiratory rate/effort. Breath sounds bilateral equal and clear anteriorly Heart: Normal rate. s1s2 normal. No rub or gallop. Extremities: no edema. No varicose veins Neurological: Patient is not responsive Skin: Warm and dry. Normal turgor. No rash. Palpitation: Normal elasticity for age Abdomen: Abdomen is soft. Bowel sounds +. There is no abdominal tenderness, no guarding/rigidity no organomegaly Psych:unable MSK: no joint tenderness or swelling. Digits and nails normal, no deformity : kidney or bladder not palpable. has johnson Labs/imaging reviewed. Past medical history, past surgical history, family history, social history, allergy reviewed and noted as below Family hx: no hx of CKD. Rest non-contributory CPK 3135 Lactic acid 12 INR 3.1 UA SG 1.057 1 + protein renal imaging: unremarkable Past Patient History - Past Social History Smoking Status: Light Smoker < 10 Cigarettes Daily - CARDIAC Hx Cardia Arrhythmia: Yes - PULMONARY Hx Respiratory Disorders: No - NEUROLOGICAL Hx Neurological Disorder: No - HEENT Hx HEENT Problems: No - RENAL Hx Chronic Kidney Disease: No - ENDOCRINE/METABOLIC Hx Hyperthyroidism: Yes (DX March) - HEMATOLOGICAL/ONCOLOGICAL Hx Blood Disorders: No - INTEGUMENTARY Hx Dermatological Problems: No - MUSCULOSKELETAL/RHEUMATOLOGICAL Hx Falls: Yes (felt dizzy at home and fell) - GASTROINTESTINAL Hx Diarrhea: Yes Hx Nausea: Yes - GENITOURINARY/GYNECOLOGICAL Hx Genitourinary Disorders: No - PSYCHIATRIC Hx Psychophysiologic Disorder: No Hx Substance Use: No - SURGICAL HISTORY Hx Surgeries: No - ANESTHESIA Hx Anesthesia: Yes Hx Anesthesia Reactions: No Hx Malignant Hyperthermia: No Has any member of the family had a problem w/ anesthesia?: No Meds Allergies/Adverse Reactions: Allergies Allergy/AdvReac Type Severity Reaction Status Date / Time No Known Allergies Allergy Unverified 03/24/18 20:31 - Medications Medications: Current Medications Acetaminophen (Tylenol 650mg/20.3ml Solution Ud) 650 mg PO Q4H PRN PRN Reason: Temperature above 100.6 Last Admin: 03/25/18 17:23 Dose: 650 mg Cholestyramine Resin (Prevalite) 4 gm PO Q8H [facility] Last Admin: 03/26/18 09:00 Dose: 4 gm Enoxaparin Sodium (Lovenox) 30 mg SC DAILY [facility] Famotidine (Pepcid) 20 mg PO BID [facility] Last Admin: 03/26/18 09:12 Dose: 20 mg Hydrocortisone Sodium Succinate (Solu-Cortef) 100 mg IV Q8H [facility] Last Admin: 03/26/18 09:13 Dose: 100 mg Piperacillin Sod/Tazobactam Sod (Zosyn 3.375 Gm Iv Premix) 3.375 gm in 50 mls @ 100 mls/hr IVPB Q8H [facility] PRN Reason: Protocol Last Admin: 03/26/18 09:30 Dose: 100 mls/hr Norepinephrine Bitartrate 4 mg (/ Dextrose) 254 mls @ 15.24 mls/hr IV .[id number] PRN; Protocol; 4 MCG/MIN PRN Reason: TITRATE PER MD ORDER Last Admin: 03/26/18 15:46 Dose: 9.84 mcg/min, 37.5 mls/hr Vasopressin 40 units/ Sodium (Chloride) 42 mls @ 0.63 mls/hr IV .Q24H N[facility]; 0.01 UNITS/MIN PRN Reason: Protocol Last Admin: 03/26/18 13:50 Dose: 0.03 units/min, 2.4 mls/hr Dextrose (Dextrose 10% In Water) 500 mls @ 50 mls/hr IV .Q10H [facility] Last Admin: 03/26/18 05:27 Dose: 50 mls/hr Sodium Bicarbonate 150 meq/ (Dextrose) 1,000 mls @ 150 mls/hr IV .[id number] [facility] Propranolol HCl (Inderal) 10 mg PO DAILY [facility] Last Admin: 03/26/18 09:12 Dose: 10 mg Propylthiouracil (Propylthiouracil) 100 mg PO Q6 [facility] Last Admin: 03/26/18 13:40 Dose: 100 mg Results - Vital Signs Recent Vital Signs: Last Vital Signs Temp 98.9 F 03/26/18 12:00 Pulse 82 03/26/18 15:10 Resp 23 03/26/18 15:10 BP 99/39 L 03/26/18 15:46 Pulse Ox 98 03/26/18 15:10 - Labs Result Diagrams: 03/26/18 06:13 03/26/18 06:14 Labs: Laboratory Results - last 24 hr 03/25/18 03/25/18 03/25/18 08:15 16:34 16:34 WBC 7.0 D RBC 4.16 Hgb 13.2 Hct 40.0 MCV 96.2 MCH 31.7 H MCHC 33.0 RDW 14.7 H Plt Count 84 L MPV 9.4 Neut % (Auto) 82.0 H Lymph % (Auto) 6.1 L [place] % (Auto) 11.1 H Eos % (Auto) 0.4 Baso % (Auto) 0.4 Neut # (Auto) 5.8 Lymph # (Auto) 0.4 L [place] # (Auto) 0.8 Eos # (Auto) 0.0 Baso # (Auto) 0.0 Neutrophils % (Manual) 85 H Band Neutrophils % 2 Lymphocytes % (Manual) 5 L Monocytes % (Manual) 8 Toxic Granulation Platelet Estimate Decreased L Large Platelets RBC Morphology Normal Poikilocytosis (manual Ovalocytes Jeff Cells PT 34.1 H* INR 3.1 Puncture Site pCO2 pO2 HCO3 ABG pH ABG Total CO2 ABG O2 Saturation ABG Base Excess ABG Hemoglobin ABG Carboxyhemoglobin POC ABG HHb (Measured) ABG Methemoglobin Jake Test ABG Potassium A-a O2 Difference Respiratory Index Hgb O2 Saturation Glucose Lactate Vent Mode Mechanical Rate FiO2 Tidal Volume PEEP Crit Value Called To Crit Value Called By Crit Value Read Back Blood Gas Notified Time Sodium Potassium Chloride Carbon Dioxide Anion Gap BUN Creatinine Est GFR ( Amer) Est GFR (Non-Af Amer) POC Glucose (mg/dL) Random Glucose Lactic Acid Calcium Phosphorus Magnesium Total Bilirubin AST ALT Alkaline Phosphatase Total Creatine Kinase CK-MB (Mass) Troponin I Total Protein Albumin Globulin Albumin/Globulin Ratio Procalcitonin Free T4 Thyroxine (T4) Free T3 pg/mL Total T3 TSH 3rd Generation Cortisol AM Sample Arterial Blood Potassium Urine Color Urine Clarity Urine pH Ur Specific [place] Urine Protein Urine Glucose (UA) Urine Ketones Urine Blood Urine Nitrate Urine Bilirubin Urine Urobilinogen Ur Leukocyte Esterase Urine WBC (Auto) Urine RBC (Auto) Ur Squamous Epith Cells Urine Bacteria Stool Occult Blood C. difficile Ag & Toxin Negative 03/25/18 03/25/18 03/25/18 16:34 16:34 16:39 WBC RBC Hgb Hct MCV MCH MCHC RDW Plt Count MPV Neut % (Auto) Lymph % (Auto) [place] % (Auto) Eos % (Auto) Baso % (Auto) Neut # (Auto) Lymph # (Auto) [place] # (Auto) Eos # (Auto) Baso # (Auto) Neutrophils % (Manual) Band Neutrophils % Lymphocytes % (Manual) Monocytes % (Manual) Toxic Granulation Platelet Estimate Large Platelets RBC Morphology Poikilocytosis (manual Ovalocytes Whipple Cells PT INR Puncture Site pCO2 pO2 HCO3 ABG pH ABG Total CO2 ABG O2 Saturation ABG Base Excess ABG Hemoglobin ABG Carboxyhemoglobin POC ABG HHb (Measured) ABG Methemoglobin Jake Test ABG Potassium A-a O2 Difference Respiratory Index Hgb O2 Saturation Glucose Lactate Vent Mode Mechanical Rate FiO2 Tidal Volume PEEP Crit Value Called To Crit Value Called By Crit Value Read Back Blood Gas Notified Time Sodium 135 Potassium 4.9 Chloride 101 Carbon Dioxide 17 L Anion Gap 21 H BUN 32 H Creatinine 1.1 Est GFR ( Amer) 59 Est GFR (Non-Af Amer) 49 POC Glucose (mg/dL) Random Glucose < 20 L* D Lactic Acid 5.1 H* Calcium 8.4 L Phosphorus Magnesium Total Bilirubin 4.4 H AST 278 H D ALT 84 H D Alkaline Phosphatase 89 Total Creatine Kinase CK-MB (Mass) Troponin I Total Protein 6.4 Albumin 3.1 L Globulin 3.3 Albumin/Globulin Ratio 0.9 L Procalcitonin Free T4 Thyroxine (T4) Free T3 pg/mL Total T3 TSH 3rd Generation Cortisol AM Sample Arterial Blood Potassium Urine Color [place] Urine Clarity Hazy Urine pH 5.0 Ur Specific [place] 1.057 H Urine Protein 1+ H Urine Glucose (UA) Normal Urine Ketones Negative Urine Blood 1+ H Urine Nitrate Negative Urine Bilirubin Negative Urine Urobilinogen Normal Ur Leukocyte Esterase Trace Urine WBC (Auto) 13 H Urine RBC (Auto) 14 H Ur Squamous Epith Cells 8 H Urine Bacteria Few H Stool Occult Blood C. difficile Ag & Toxin 03/25/18 03/25/18 03/25/18 16:50 17:44 18:07 WBC RBC Hgb Hct MCV MCH MCHC RDW Plt Count MPV Neut % (Auto) Lymph % (Auto) [place] % (Auto) Eos % (Auto) Baso % (Auto) Neut # (Auto) Lymph # (Auto) [place] # (Auto) Eos # (Auto) Baso # (Auto) Neutrophils % (Manual) Band Neutrophils % Lymphocytes % (Manual) Monocytes % (Manual) Toxic Granulation Platelet Estimate Large Platelets RBC Morphology Poikilocytosis (manual Ovalocytes Whipple Cells PT INR Puncture Site Lb Line pCO2 31 L 32 L pO2 500 H 49 L HCO3 17.2 L 14.0 L ABG pH 7.30 L 7.22 L ABG Total CO2 16.3 L 14.1 L ABG O2 Saturation 100.5 H 82.5 L ABG Base Excess -9.9 L -13.5 L ABG Hemoglobin 12.7 12.4 ABG Carboxyhemoglobin 1.7 H 2.1 H POC ABG HHb (Measured) -0.5 L 17.0 H ABG Methemoglobin 1.2 0.8 Jake Test Na Na ABG Potassium A-a O2 Difference 174.0 196.0 Respiratory Index 0.3 4.0 Hgb O2 Saturation 97.5 80.1 L Glucose Lactate Vent Mode Prvc Prvc Mechanical Rate 14 18 FiO2 100.0 40.0 Tidal Volume 400 400 PEEP 5 5 Crit Value Called To Crit Value Called By Crit Value Read Back Blood Gas Notified Time Sodium Potassium Chloride Carbon Dioxide Anion Gap BUN Creatinine Est GFR ( Amer) Est GFR (Non-Af Amer) POC Glucose (mg/dL) Random Glucose Lactic Acid Calcium Phosphorus Magnesium Total Bilirubin AST ALT Alkaline Phosphatase Total Creatine Kinase 854 H CK-MB (Mass) 5.47 H Troponin I 0.1050 Total Protein Albumin Globulin Albumin/Globulin Ratio Procalcitonin Free T4 Thyroxine (T4) 12.9 H Free T3 pg/mL Total T3 TSH 3rd Generation Cortisol AM Sample Arterial Blood Potassium Urine Color Urine Clarity Urine pH Ur Specific [place] Urine Protein Urine Glucose (UA) Urine Ketones Urine Blood Urine Nitrate Urine Bilirubin Urine Urobilinogen Ur Leukocyte Esterase Urine WBC (Auto) Urine RBC (Auto) Ur Squamous Epith Cells Urine Bacteria Stool Occult Blood C. difficile Ag & Toxin 03/25/18 03/25/18 03/25/18 20:40 20:42 20:42 WBC 8.8 RBC 4.13 Hgb 13.3 Hct 40.0 MCV 97.0 MCH 32.1 H MCHC 33.1 RDW 14.8 H Plt Count 67 L MPV 9.3 Neut % (Auto) 86.3 H Lymph % (Auto) 5.5 L [place] % (Auto) 6.8 Eos % (Auto) 0.7 Baso % (Auto) 0.7 Neut # (Auto) 7.6 H Lymph # (Auto) 0.5 L [place] # (Auto) 0.6 Eos # (Auto) 0.1 Baso # (Auto) 0.1 Neutrophils % (Manual) 92 H Band Neutrophils % 2 Lymphocytes % (Manual) 3 L Monocytes % (Manual) 3 Toxic Granulation Platelet Estimate Decreased L Large Platelets RBC Morphology Normal Poikilocytosis (manual Ovalocytes Whipple Cells PT INR Puncture Site pCO2 pO2 HCO3 ABG pH ABG Total CO2 ABG O2 Saturation ABG Base Excess ABG Hemoglobin ABG Carboxyhemoglobin POC ABG HHb (Measured) ABG Methemoglobin Jake Test ABG Potassium A-a O2 Difference Respiratory Index Hgb O2 Saturation Glucose Lactate Vent Mode Mechanical Rate FiO2 Tidal Volume PEEP Crit Value Called To Crit Value Called By Crit Value Read Back Blood Gas Notified Time Sodium Potassium Chloride Carbon Dioxide Anion Gap BUN Creatinine Est GFR ( Amer) Est GFR (Non-Af Amer) POC Glucose (mg/dL) 136 H Random Glucose Lactic Acid Calcium Phosphorus Magnesium Total Bilirubin AST ALT Alkaline Phosphatase Total Creatine Kinase CK-MB (Mass) Troponin I Total Protein Albumin Globulin Albumin/Globulin Ratio Procalcitonin 7.60 H Free T4 Thyroxine (T4) Free T3 pg/mL Total T3 TSH 3rd Generation Cortisol AM Sample Arterial Blood Potassium Urine Color Urine Clarity Urine pH Ur Specific [place] Urine Protein Urine Glucose (UA) Urine Ketones Urine Blood Urine Nitrate Urine Bilirubin Urine Urobilinogen Ur Leukocyte Esterase Urine WBC (Auto) Urine RBC (Auto) Ur Squamous Epith Cells Urine Bacteria Stool Occult Blood C. difficile Ag & Toxin 03/25/18 03/25/18 03/25/18 20:42 22:21 23:40 WBC RBC Hgb Hct MCV MCH MCHC RDW Plt Count MPV Neut % (Auto) Lymph % (Auto) [place] % (Auto) Eos % (Auto) Baso % (Auto) Neut # (Auto) Lymph # (Auto) [place] # (Auto) Eos # (Auto) Baso # (Auto) Neutrophils % (Manual) Band Neutrophils % Lymphocytes % (Manual) Monocytes % (Manual) Toxic Granulation Platelet Estimate Large Platelets RBC Morphology Poikilocytosis (manual Ovalocytes Jeff Cells PT INR Puncture Site Lb pCO2 26 L pO2 198 H HCO3 13.6 L ABG pH 7.24 L ABG Total CO2 11.9 L ABG O2 Saturation 100.3 H ABG Base Excess -14.6 L ABG Hemoglobin ABG Carboxyhemoglobin POC ABG HHb (Measured) ABG Methemoglobin Jake Test Na ABG Potassium 4.0 A-a O2 Difference 55.0 Respiratory Index 0.3 Hgb O2 Saturation Glucose 77 Lactate 11.4 H* Vent Mode Prvc Mechanical Rate 18 FiO2 40.0 Tidal Volume 400 PEEP 5 Crit Value Called To Dr. gomez Crit Value Called By Pj mancuso Crit Value Read Back Y Blood Gas Notified Time 2225 Sodium 137 133.0 Potassium 4.2 Chloride 102 99.0 Carbon Dioxide 12 L Anion Gap 27 H BUN 35 H Creatinine 1.4 H Est GFR ( Amer) 45 Est GFR (Non-Af Amer) 37 POC Glucose (mg/dL) 79 Random Glucose 120 H Lactic Acid Calcium 7.6 L Phosphorus Magnesium Total Bilirubin 4.8 H AST 974 H D ALT 234 H D Alkaline Phosphatase 75 Total Creatine Kinase CK-MB (Mass) Troponin I Total Protein 5.8 L Albumin 2.7 L Globulin 3.0 Albumin/Globulin Ratio 0.9 L Procalcitonin Free T4 Thyroxine (T4) Free T3 pg/mL Total T3 TSH 3rd Generation Cortisol AM Sample Arterial Blood Potassium 4.0 Urine Color Urine Clarity Urine pH Ur Specific [place] Urine Protein Urine Glucose (UA) Urine Ketones Urine Blood Urine Nitrate Urine Bilirubin Urine Urobilinogen Ur Leukocyte Esterase Urine WBC (Auto) Urine RBC (Auto) Ur Squamous Epith Cells Urine Bacteria Stool Occult Blood C. difficile Ag & Toxin 03/26/18 03/26/18 03/26/18 03:16 04:25 05:03 WBC RBC Hgb Hct MCV MCH MCHC RDW Plt Count MPV Neut % (Auto) Lymph % (Auto) [place] % (Auto) Eos % (Auto) Baso % (Auto) Neut # (Auto) Lymph # (Auto) [place] # (Auto) Eos # (Auto) Baso # (Auto) Neutrophils % (Manual) Band Neutrophils % Lymphocytes % (Manual) Monocytes % (Manual) Toxic Granulation Platelet Estimate Large Platelets RBC Morphology Poikilocytosis (manual Ovalocytes Whipple Cells PT INR Puncture Site Lb pCO2 27 L pO2 179 H HCO3 17.9 L ABG pH 7.35 ABG Total CO2 15.7 L ABG O2 Saturation 99.9 H ABG Base Excess -9.1 L ABG Hemoglobin ABG Carboxyhemoglobin POC ABG HHb (Measured) ABG Methemoglobin Jake Test Na ABG Potassium 4.0 A-a O2 Difference 72.0 Respiratory Index 0.4 Hgb O2 Saturation Glucose 52 L Lactate 12.1 H* Vent Mode Prvc Mechanical Rate 18 FiO2 40.0 Tidal Volume 400 PEEP 5 Crit Value Called To Nirmala karimi/rn Crit Value Called By Phil monge/rt Crit Value Read Back Y Blood Gas Notified Time 445 Sodium 134.0 Potassium Chloride 98.0 Carbon Dioxide Anion Gap BUN Creatinine Est GFR ( Amer) Est GFR (Non-Af Amer) POC Glucose (mg/dL) 60 L Random Glucose Lactic Acid Calcium Phosphorus Magnesium Total Bilirubin AST ALT Alkaline Phosphatase Total Creatine Kinase 3135 H CK-MB (Mass) 21.2 H Troponin I 0.1160 Total Protein Albumin Globulin Albumin/Globulin Ratio Procalcitonin Free T4 Thyroxine (T4) Free T3 pg/mL Total T3 TSH 3rd Generation Cortisol AM Sample Arterial Blood Potassium 4.0 Urine Color Urine Clarity Urine pH Ur Specific [place] Urine Protein Urine Glucose (UA) Urine Ketones Urine Blood Urine Nitrate Urine Bilirubin Urine Urobilinogen Ur Leukocyte Esterase Urine WBC (Auto) Urine RBC (Auto) Ur Squamous Epith Cells Urine Bacteria Stool Occult Blood C. difficile Ag & Toxin 03/26/18 03/26/18 03/26/18 05:06 06:08 06:13 WBC 11.9 H RBC 4.02 Hgb 12.9 Hct 38.5 MCV 95.9 MCH 32.0 H MCHC 33.4 RDW 14.6 H Plt Count 82 L MPV 10.7 Neut % (Auto) 87.2 H Lymph % (Auto) 7.3 L [place] % (Auto) 5.3 Eos % (Auto) 0.1 Baso % (Auto) 0.1 Neut # (Auto) 10.4 H Lymph # (Auto) 0.9 L [place] # (Auto) 0.6 Eos # (Auto) 0.0 Baso # (Auto) 0.0 Neutrophils % (Manual) 72 Band Neutrophils % 16 H* Lymphocytes % (Manual) 7 L Monocytes % (Manual) 5 Toxic Granulation Present Platelet Estimate Decreased L Large Platelets Present RBC Morphology Poikilocytosis (manual Slight Ovalocytes Slight Whipple Cells Slight PT INR Puncture Site pCO2 pO2 HCO3 ABG pH ABG Total CO2 ABG O2 Saturation ABG Base Excess ABG Hemoglobin ABG Carboxyhemoglobin POC ABG HHb (Measured) ABG Methemoglobin Jake Test ABG Potassium A-a O2 Difference Respiratory Index Hgb O2 Saturation Glucose Lactate Vent Mode Mechanical Rate FiO2 Tidal Volume PEEP Crit Value Called To Crit Value Called By Crit Value Read Back Blood Gas Notified Time Sodium Potassium Chloride Carbon Dioxide Anion Gap BUN Creatinine Est GFR ( Amer) Est GFR (Non-Af Amer) POC Glucose (mg/dL) 62 L Random Glucose Lactic Acid Calcium Phosphorus Magnesium Total Bilirubin AST ALT Alkaline Phosphatase Total Creatine Kinase CK-MB (Mass) Troponin I Total Protein Albumin Globulin Albumin/Globulin Ratio Procalcitonin Free T4 Thyroxine (T4) Free T3 pg/mL Total T3 TSH 3rd Generation Cortisol AM Sample Arterial Blood Potassium Urine Color Urine Clarity Urine pH Ur Specific [place] Urine Protein Urine Glucose (UA) Urine Ketones Urine Blood Urine Nitrate Urine Bilirubin Urine Urobilinogen Ur Leukocyte Esterase Urine WBC (Auto) Urine RBC (Auto) Ur Squamous Epith Cells Urine Bacteria Stool Occult Blood Positive H C. difficile Ag & Toxin 03/26/18 03/26/18 03/26/18 06:14 06:14 06:14 WBC RBC Hgb Hct MCV MCH MCHC RDW Plt Count MPV Neut % (Auto) Lymph % (Auto) [place] % (Auto) Eos % (Auto) Baso % (Auto) Neut # (Auto) Lymph # (Auto) [place] # (Auto) Eos # (Auto) Baso # (Auto) Neutrophils % (Manual) Band Neutrophils % Lymphocytes % (Manual) Monocytes % (Manual) Toxic Granulation Platelet Estimate Large Platelets RBC Morphology Poikilocytosis (manual Ovalocytes Jeff Cells PT INR Puncture Site pCO2 pO2 HCO3 ABG pH ABG Total CO2 ABG O2 Saturation ABG Base Excess ABG Hemoglobin ABG Carboxyhemoglobin POC ABG HHb (Measured) ABG Methemoglobin Jake Test ABG Potassium A-a O2 Difference Respiratory Index Hgb O2 Saturation Glucose Lactate Vent Mode Mechanical Rate FiO2 Tidal Volume PEEP Crit Value Called To Crit Value Called By Crit Value Read Back Blood Gas Notified Time Sodium 140 Potassium 4.4 Chloride 98 Carbon Dioxide 16 L Anion Gap 30 H BUN 40 H Creatinine 1.7 H Est GFR ( Amer) 36 Est GFR (Non-Af Amer) 30 POC Glucose (mg/dL) Random Glucose 44 L Lactic Acid Calcium 7.1 L Phosphorus 7.4 H Magnesium 1.9 Total Bilirubin 5.4 H AST 1390 H ALT 361 H D Alkaline Phosphatase 70 Total Creatine Kinase CK-MB (Mass) Troponin I Total Protein 5.7 L Albumin 2.7 L Globulin 3.0 Albumin/Globulin Ratio 0.9 L Procalcitonin Free T4 > 6.99 H Thyroxine (T4) 14.4 H Free T3 pg/mL Total T3 TSH 3rd Generation < 0.02 L Cortisol AM Sample > 616.0 H Arterial Blood Potassium Urine Color Urine Clarity Urine pH Ur Specific [place] Urine Protein Urine Glucose (UA) Urine Ketones Urine Blood Urine Nitrate Urine Bilirubin Urine Urobilinogen Ur Leukocyte Esterase Urine WBC (Auto) Urine RBC (Auto) Ur Squamous Epith Cells Urine Bacteria Stool Occult Blood C. difficile Ag & Toxin 03/26/18 03/26/18 03/26/18 07:40 08:54 08:54 WBC RBC Hgb Hct MCV MCH MCHC RDW Plt Count MPV Neut % (Auto) Lymph % (Auto) [place] % (Auto) Eos % (Auto) Baso % (Auto) Neut # (Auto) Lymph # (Auto) [place] # (Auto) Eos # (Auto) Baso # (Auto) Neutrophils % (Manual) Band Neutrophils % Lymphocytes % (Manual) Monocytes % (Manual) Toxic Granulation Platelet Estimate Large Platelets RBC Morphology Poikilocytosis (manual Ovalocytes Jeff Cells PT INR Puncture Site pCO2 pO2 HCO3 ABG pH ABG Total CO2 ABG O2 Saturation ABG Base Excess ABG Hemoglobin ABG Carboxyhemoglobin POC ABG HHb (Measured) ABG Methemoglobin Jake Test ABG Potassium A-a O2 Difference Respiratory Index Hgb O2 Saturation Glucose Lactate Vent Mode Mechanical Rate FiO2 Tidal Volume PEEP Crit Value Called To Crit Value Called By Crit Value Read Back Blood Gas Notified Time Sodium Potassium Chloride Carbon Dioxide Anion Gap BUN Creatinine Est GFR ( Amer) Est GFR (Non-Af Amer) POC Glucose (mg/dL) 130 H Random Glucose Lactic Acid Calcium Phosphorus Magnesium Total Bilirubin AST ALT Alkaline Phosphatase Total Creatine Kinase CK-MB (Mass) Troponin I Total Protein Albumin Globulin Albumin/Globulin Ratio Procalcitonin 8.51 H Free T4 Thyroxine (T4) Free T3 pg/mL > 22.80 H Total T3 6.42 H TSH 3rd Generation Cortisol AM Sample Arterial Blood Potassium Urine Color Urine Clarity Urine pH Ur Specific [place] Urine Protein Urine Glucose (UA) Urine Ketones Urine Blood Urine Nitrate Urine Bilirubin Urine Urobilinogen Ur Leukocyte Esterase Urine WBC (Auto) Urine RBC (Auto) Ur Squamous Epith Cells Urine Bacteria Stool Occult Blood C. difficile Ag & Toxin 03/26/18 11:36 WBC RBC Hgb Hct MCV MCH MCHC RDW Plt Count MPV Neut % (Auto) Lymph % (Auto) [place] % (Auto) Eos % (Auto) Baso % (Auto) Neut # (Auto) Lymph # (Auto) [place] # (Auto) Eos # (Auto) Baso # (Auto) Neutrophils % (Manual) Band Neutrophils % Lymphocytes % (Manual) Monocytes % (Manual) Toxic Granulation Platelet Estimate Large Platelets RBC Morphology Poikilocytosis (manual Ovalocytes Whipple Cells PT INR Puncture Site pCO2 pO2 HCO3 ABG pH ABG Total CO2 ABG O2 Saturation ABG Base Excess ABG Hemoglobin ABG Carboxyhemoglobin POC ABG HHb (Measured) ABG Methemoglobin Jake Test ABG Potassium A-a O2 Difference Respiratory Index Hgb O2 Saturation Glucose Lactate Vent Mode Mechanical Rate FiO2 Tidal Volume PEEP Crit Value Called To Crit Value Called By Crit Value Read Back Blood Gas Notified Time Sodium Potassium Chloride Carbon Dioxide Anion Gap BUN Creatinine Est GFR ( Amer) Est GFR (Non-Af Amer) POC Glucose (mg/dL) 201 H Random Glucose Lactic Acid Calcium Phosphorus Magnesium Total Bilirubin AST ALT Alkaline Phosphatase Total Creatine Kinase CK-MB (Mass) Troponin I Total Protein Albumin Globulin Albumin/Globulin Ratio Procalcitonin Free T4 Thyroxine (T4) Free T3 pg/mL Total T3 TSH 3rd Generation Cortisol AM Sample Arterial Blood Potassium Urine Color Urine Clarity Urine pH Ur Specific [place] Urine Protein Urine Glucose (UA) Urine Ketones Urine Blood Urine Nitrate Urine Bilirubin Urine Urobilinogen Ur Leukocyte Esterase Urine WBC (Auto) Urine RBC (Auto) Ur Squamous Epith Cells Urine Bacteria Stool Occult Blood C. difficile Ag & Toxin
[2018-03-26 16:50] LABS: FECAL LEUKOCYTES POSITIVE (NEGATIVE)
--- NOTE | 2018-03-26 17:10 | CT ---
PROCEDURE: CT HEAD WITHOUT CONTRAST. HISTORY: AMS COMPARISON: None available. TECHNIQUE: Axial computed tomography images were obtained through the head/brain without intravenous contrast. Radiation dose: Total exam DLP = 1343.30 mGy-cm. This CT exam was performed using one or more of the following dose reduction techniques: Automated exposure control, adjustment of the mA and/or kV according to patient size, and/or use of iterative reconstruction technique. FINDINGS: HEMORRHAGE: No intracranial hemorrhage. BRAIN: No mass effect or edema. Minimal diffuse age-appropriate atrophy. No chronic white matter ischemic change. No evidence of acute infarct. VENTRICLES: Unremarkable. No hydrocephalus. CALVARIUM: Unremarkable. PARANASAL SINUSES: Unremarkable as visualized. No significant inflammatory changes. MASTOID AIR CELLS: Unremarkable as visualized. No inflammatory changes. OTHER FINDINGS: None. IMPRESSION: No intracranial mass, hemorrhage or evidence of acute infarct.
--- NOTE | 2018-03-26 17:29 | PCM.PROC ---
Procedures Attestation:: I certify that I have explained the specified Operation(s) or Procedure(s), risks, benefits and reasonable alternatives to the Patient and/or other person responsible. The opportunity was given to ask questions and all questions answered - Intubation Time Out Performed: Yes Sedative: Etomidate Laryngoscope: Krystina ET Tube Size: 7.5 ET Tube Uncuffed: No ET Tube Secured Locarion: Lips ET Tube Placement Confirmation: Visualized Passing Through Cords, Breath Sounds Equal Bilaterally, No Breath Sounds Over Epigastrum, Confirmation w/Capnometry Patient Tolerated Procedure: Well Procedure Immediate Complications: None
--- NOTE | 2018-03-26 17:30 | PCM.PROC ---
Procedures Attestation:: I certify that I have explained the specified Operation(s) or Procedure(s), risks, benefits and reasonable alternatives to the Patient and/or other person responsible. The opportunity was given to ask questions and all questions answered - Central Line Placement Left Internal Jugular Triple Lumen Catheter Aseptic technique was employed throughout the procedure: Hand Hygiene done prior to procedure, Full sterile barriers (mask, hair cover, sterile gown, sterile gloves), Full body sterile drape, Chloraprep Antiseptic: 30 second prep for IJ or SC sites CVP Time Out Performed: Yes Pt. Placed on Pulse Ox Monitor: Yes Central Line Prep: Chlorhexidine-Alcohol Combination Local Anesthesia Used: Lidocaine 1% Amount of Anesthesia Used (mls): 3 Ultrasound Used for Placement: Yes Central Line Lumen Inserted: triple Central Line Length: 16 cm Post Procedure: Sutured in Place, Good Blood Return, All Ports Aspirated, Flushed, Capped, Sterile Dressing Applied Secured by: Suture Post procedure dressing: Chlorhexidine disc (Biopatch) Post Procedure X-Ray: Yes Patient Tolerated Procedure: Well
--- NOTE | 2018-03-26 18:25 | CP.PCM.PN ---
<Gergg John - Last Filed: 03/26/18 18:21> Subjective - Date & Time of Evaluation Date of Evaluation: 03/26/18 Time of Evaluation: 18:21 - Subjective Subjective: Surgery: Dr. Cummins Patient clinically same. Remains intubated in ICU. Requiring 2 pressors for BP support. Objective - Vital Signs/Intake and Output Vital Signs (last 24 hours): Temp Pulse Resp BP Pulse Ox 98.9 F 82 23 99/39 L 98 03/26/18 12:00 03/26/18 15:10 03/26/18 15:10 03/26/18 15:46 03/26/18 15:10 Intake and Output: 03/26/18 03/26/18 06:59 18:59 Intake Total 2524.5 3188.1 Output Total 595 350 Balance 1929.5 2838.1 - Medications Medications: Current Medications Acetaminophen (Tylenol 650mg/20.3ml Solution Ud) 650 mg PO Q4H PRN PRN Reason: Temperature above 100.6 Last Admin: 03/25/18 17:23 Dose: 650 mg Cholestyramine Resin (Prevalite) 4 gm PO Q8H [facility] Last Admin: 03/26/18 16:58 Dose: 4 gm Enoxaparin Sodium (Lovenox) 30 mg SC DAILY [facility] Famotidine (Pepcid) 20 mg PO BID [facility] Last Admin: 03/26/18 17:06 Dose: 20 mg Hydrocortisone Sodium Succinate (Solu-Cortef) 100 mg IV Q8H [facility] Last Admin: 03/26/18 16:59 Dose: 100 mg Piperacillin Sod/Tazobactam Sod (Zosyn 3.375 Gm Iv Premix) 3.375 gm in 50 mls @ 100 mls/hr IVPB Q8H [facility] PRN Reason: Protocol Last Admin: 03/26/18 16:59 Dose: 100 mls/hr Norepinephrine Bitartrate 4 mg (/ Dextrose) 254 mls @ 15.24 mls/hr IV .[id number] PRN; Protocol; 4 MCG/MIN PRN Reason: TITRATE PER MD ORDER Last Admin: 03/26/18 15:46 Dose: 9.84 mcg/min, 37.5 mls/hr Sodium Bicarbonate 150 meq/ (Dextrose) 1,000 mls @ 150 mls/hr IV .[id number] [facility] Metronidazole (Flagyl) 500 mg in 100 mls @ 100 mls/hr IVPB Q8 [facility] PRN Reason: Protocol Vasopressin 40 units/ Sodium (Chloride) 40 mls @ 0.6 mls/hr IV .Q24H [facility]; 0.01 UNITS/MIN PRN Reason: Protocol Propranolol HCl (Inderal) 10 mg PO DAILY [facility] Last Admin: 03/26/18 09:12 Dose: 10 mg Propylthiouracil (Propylthiouracil) 100 mg PO Q6 [facility] Last Admin: 03/26/18 17:07 Dose: 100 mg - Labs Labs: 03/26/18 06:13 03/26/18 06:14 PT 34.1 SECONDS (9.7-12.2) H* 03/25/18 16:34 INR 3.1 03/25/18 16:34 - Constitutional Appears: Toxic, No Acute Distress - Head Exam Head Exam: ATRAUMATIC, NORMOCEPHALIC - Eye Exam Eye Exam: EOMI Additional comments: ET tube intact - ENT Exam ENT Exam: Mucous Membranes Dry - Respiratory Exam Additional comments: mechanical ventilation - Cardiovascular Exam Cardiovascular Exam: REGULAR RHYTHM. absent: Tachycardia - GI/Abdominal Exam GI & Abdominal Exam: Soft. absent: Distended, Tenderness, Rebound Assessment and Plan - Assessment and Plan (Free Text) Assessment: 72 y/o female w/ thyroid storm, cholecystitis ruled out but now with transaminitis Plan: -medical management per ICU -recommend GI consult and possible MRCP to r/o choledocholithiasis -could be 2/2 shock liver -no acute surgical intervention at this time -further recs per Dr. Cummins AKite PGY3 <Warren Cummins B - Last Filed: 03/29/18 22:19> Objective - Vital Signs/Intake and Output Vital Signs (last 24 hours): Temp Pulse Resp BP Pulse Ox 97.8 F 74 23 106/49 L 92 L 03/29/18 16:00 03/29/18 18:11 03/29/18 18:11 03/29/18 18:11 03/29/18 18:11 Intake and Output: 03/29/18 03/30/18 18:59 06:59 Intake Total 2187.1 Output Total 1430 Balance 757.1 - Medications Medications: Current Medications Acetaminophen (Tylenol 650mg/20.3ml Solution Ud) 650 mg PO Q4H PRN PRN Reason: Temperature above 100.6 Last Admin: 03/28/18 14:47 Dose: 650 mg Cholestyramine Resin (Prevalite) 4 gm PO Q8H [facility] Last Admin: 03/29/18 15:20 Dose: 4 gm Famotidine (Pepcid) 20 mg PO BID [facility] Last Admin: 03/29/18 17:57 Dose: 20 mg Norepinephrine Bitartrate 4 mg (/ Dextrose) 254 mls @ 15.24 mls/hr IV .[id number] PRN; Protocol; 4 MCG/MIN PRN Reason: TITRATE PER MD ORDER Last Admin: 03/29/18 17:51 Dose: 3 mcg/min, 11.43 mls/hr Vasopressin 40 units/ Sodium (Chloride) 40 mls @ 0.6 mls/hr IV .Q24H [facility]; 0.01 UNITS/MIN PRN Reason: Protocol Last Admin: 03/29/18 17:49 Dose: 0.03 units/min, 1.8 mls/hr Meropenem 500 mg/ Sodium (Chloride) 100 mls @ 100 mls/hr IVPB Q8 [facility] PRN Reason: Protocol Last Admin: 03/29/18 21:09 Dose: 100 mls/hr Vancomycin/Sodium Chloride (Vancomycin 1 Gm/Ns 200 Ml) 1 gm in 200 mls @ 166.7 mls/hr IVPB Q24H [facility] PRN Reason: Protocol Stop: 04/01/18 10:01 Last Admin: 03/29/18 09:51 Dose: 166.7 mls/hr Acyclovir 500 mg/ Sodium (Chloride) 100 mls @ 100 mls/hr IV Q12H [facility] PRN Reason: Protocol Last Admin: 03/29/18 15:20 Dose: 100 mls/hr Sodium Chloride (Sodium Chloride 0.9%) 1,000 mls @ 75 mls/hr IV .[id number] [facility] Last Admin: 03/29/18 09:49 Dose: Not Given Fluconazole (Diflucan Iv 100 Mg/50 Ml Ns) 50 mls @ 100 mls/hr IVPB Q24H [facility] PRN Reason: Protocol Last Admin: 03/29/18 17:46 Dose: 100 mls/hr Levetiracetam 1,000 mg/ Sodium (Chloride) 110 mls @ 420 mls/hr IVPB Q12H [facility] Last Admin: 03/29/18 14:41 Dose: 420 mls/hr Propofol (Diprivan) 1,000 mg in 100 mls @ 1.742 mls/hr IV .Q24H PRN; Protocol; 5 MCG/KG/MIN PRN Reason: TITRATE PER MD ORDER Last Admin: 03/29/18 13:46 Dose: 5 mcg/kg/min, 1.742 mls/hr Insulin Aspart (Novolog) 0 unit SC Q6H [facility] PRN Reason: Protocol Last Admin: 03/29/18 17:57 Dose: Not Given Lactulose (Enulose) 20 gm PO BID [facility] Last Admin: 03/29/18 17:47 Dose: 20 gm Midodrine (Proamatine) 5 mg PO Q8H [facility] Last Admin: 03/29/18 21:19 Dose: 5 mg Phytonadione (Vitamin K Tab) 10 mg PO DAILY [facility] Stop: 03/31/18 10:01 Last Admin: 03/29/18 16:00 Dose: 10 mg Potassium Phos/Sodium Phos (Neutra-Phos) 1 pkt PO BID [facility] Last Admin: 03/29/18 17:59 Dose: 1 pkt Propranolol HCl (Inderal) 10 mg PO DAILY [facility] Last Admin: 03/29/18 09:50 Dose: 10 mg Propylthiouracil (Propylthiouracil) 300 mg PO Q8H [facility] Stop: 03/30/18 12:01 Last Admin: 03/29/18 21:00 Dose: 300 mg - Labs Labs: 03/29/18 07:04 03/29/18 07:01 PT 30.2 SECONDS (9.7-12.2) H* 03/29/18 15:20 INR 2.8 03/29/18 15:20 Attending/Attestation - Attestation I have personally seen and examined this patient.: Yes I have fully participated in the care of the patient.: Yes I have reviewed all pertinent clinical information, including history, physical exam and plan: Yes Notes (Text): Pt with thyroid andrew and septic shock C/w IV antibiotics C/w ICU management Plan d.w primary team in detail Risk and benefit explained in detail.
[2018-03-26] MEDS: Aztreonam 1 GM in Sodium Chloride 0.9% 100 ML IVPB SCH (21:13)
[2018-03-26] MEDS: metroNIDAZOLE IV 500 mg/100 ml 500 MG/100 ML BAG IVPB SCH (21:52)
[2018-03-26] MEDS: Meropenem 500 MG in Sodium Chloride 0.9% 100 ML IVPB SCH (22:50)
[2018-03-27] MEDS ORDERED: (Novolin R) Insulin Human Regular 100 units/ml vial SC PRN
[2018-03-27] MEDS: Cholestyramine 4 gm/5.5 gm UD Packet PO SCH ×3 (00:12→16:15)
[2018-03-27] MEDS: (Novolin R) Insulin Human Regular 100 units/ml vial SC SCH ×2 (00:13→05:44)
[2018-03-27] MEDS: Aztreonam 1 GM in Sodium Chloride 0.9% 100 ML IVPB SCH ×2 (04:27→11:57)
[2018-03-27] MEDS: metroNIDAZOLE IV 500 mg/100 ml 500 MG/100 ML BAG IVPB SCH ×3 (05:11→21:16)
[2018-03-27 05:18] LABS: ABG ALLEN TEST POS; ARTERIAL BLOOD GAS HCO3 33.5 mmol/L (21-28); ARTERIAL BLOOD GAS O2 SAT 99.3 % (95-98); ARTERIAL BLOOD GAS PCO2 47 mm/Hg (35-45); ARTERIAL BLOOD GAS PH 7.49 (7.35-7.45); ARTERIAL BLOOD GAS PO2 107 mm/Hg (80-100); ARTERIAL BLOOD GAS TCO2 37.2 mmol/L (22-28)
[2018-03-27] MEDS: Meropenem 500 MG in Sodium Chloride 0.9% 100 ML IVPB SCH ×3 (06:15→22:34)
[2018-03-27 06:38] LABS: BASO # 0.1 K/uL (0.0-0.2); BASO % 0.4 % (0.0-2.0); EOS # 0.1 K/uL (0.0-0.7); EOS % 0.7 % (0.0-4.0); HEMOGLOBIN 12.5 g/dL (11.0-16.0); LYMPH % 7.5 % (20.0-40.0); MEAN CELL VOLUME 94.3 fL (81.0-99.0); MEAN CORPUSCULAR HEMOGLOBIN 31.9 pg (27.0-31.0); MEAN CORPUSCULAR HGB CONC 33.8 g/dL (33.0-37.0); MONO # 0.6 K/uL (0.0-0.8); MONO % 4.7 % (0.0-10.0); NEUT % 86.7 % (50.0-75.0); NRBC % 0.1 % (0.0-2.0); PLATELET COUNT 114 K/uL (130-400); RBC 3.93 Mil/uL (3.80-5.20); RED CELL DISTRIBUTION WIDTH 14.3 % (11.5-14.5); WHITE BLOOD COUNT 13.9 K/uL (4.8-10.8)
[2018-03-27] MEDS: Sodium Bicarbonate 8.4% 150 MEQ in Dextrose 5% In Water 850 ML IV SCH (06:50)
[2018-03-27 07:12] LABS: T4 10.1 ug/dL (5.5-11.0)
--- NOTE | 2018-03-27 07:20 | PN ---
DATE: 03/26/2018 ENDO FOLLOWUP NOTE LOCATION: ICU room 17. SUBJECTIVE: This is a 72-year-old female who is currently endotracheally intubated and also concomitant hyperthyroidism; both historically, clinically and biochemically as noted. LABORATORY DATA: Her repeat thyroid studies today showed a total T4 of 14.4 with TSH of less than 0.02 and a free T4 of over 6.99. The free T3 was reported as over 22.80, total T3 of 6.42. The initial total T4 was 12.9 mg/dL. She remains intubated at this time and the possibility of a thyroid crisis has been discussed with the hospitalist who also has started the patient empirically on IV steroid therapy which has been given since last night. Moreover, there has been a discussion, rather, the patient should be changed over to a short-acting thiourea medication such as propylthiouracil or PTU as discussed. This could be given briefly for inpatient management but not for long-term outpatient management, physically only for management of thyrotoxicosis in . We will concur with switching the patient over to propylthiouracil given as 100 mg every 6 hours as ordered. We will obtain serial chemistries and supplement accordingly as needed. We will also obtain serial thyroid studies as ordered. We will follow up with you. Ani House MD
[2018-03-27 07:34] LABS: ALB/GLOB RATIO 0.8 (1.0-2.1); ALBUMIN 2.3 g/dL (3.5-5.0); CALCIUM 6.2 mg/dl (8.6-10.4); T3 2.8 nmol/L (1.49-2.60)
--- NOTE | 2018-03-27 08:11 | CP.PCM.PN ---
<Gregg John - Last Filed: 03/27/18 08:08> Subjective - Date & Time of Evaluation Date of Evaluation: 03/27/18 Time of Evaluation: 08:08 - Subjective Subjective: Surgery: Dr. Cummins Patient remains intubated in ICU. Clinically stable overnight. Pressor support weaning. Blood pressure improving. Objective - Vital Signs/Intake and Output Vital Signs (last 24 hours): Temp Pulse Resp BP Pulse Ox 98.8 F 83 16 120/54 L 98 03/27/18 06:00 03/27/18 07:50 03/27/18 07:50 03/27/18 07:44 03/27/18 07:50 Intake and Output: 03/27/18 03/27/18 06:59 18:59 Intake Total 3952.8 209.9 Output Total 730 Balance 3222.8 209.9 - Medications Medications: Current Medications Acetaminophen (Tylenol 650mg/20.3ml Solution Ud) 650 mg PO Q4H PRN PRN Reason: Temperature above 100.6 Last Admin: 03/25/18 17:23 Dose: 650 mg Cholestyramine Resin (Prevalite) 4 gm PO Q8H [facility] Last Admin: 03/27/18 00:12 Dose: 4 gm Enoxaparin Sodium (Lovenox) 30 mg SC DAILY [facility] Famotidine (Pepcid) 20 mg PO BID [facility] Last Admin: 03/26/18 17:06 Dose: 20 mg Hydrocortisone Sodium Succinate (Solu-Cortef) 100 mg IV Q8H [facility] Last Admin: 03/27/18 00:11 Dose: 100 mg Norepinephrine Bitartrate 4 mg (/ Dextrose) 254 mls @ 15.24 mls/hr IV .[id number] PRN; Protocol; 4 MCG/MIN PRN Reason: TITRATE PER MD ORDER Last Admin: 03/27/18 05:13 Dose: 11.81 mcg/min, 45 mls/hr Sodium Bicarbonate 150 meq/ (Dextrose) 1,000 mls @ 150 mls/hr IV .Q6H40M [facility] Last Admin: 03/27/18 06:50 Dose: 150 mls/hr Metronidazole (Flagyl) 500 mg in 100 mls @ 100 mls/hr IVPB Q8 [facility] PRN Reason: Protocol Last Admin: 03/27/18 05:11 Dose: 100 mls/hr Vasopressin 40 units/ Sodium (Chloride) 40 mls @ 0.6 mls/hr IV .Q24H [facility]; 0.01 UNITS/MIN PRN Reason: Protocol Last Titration: 03/26/18 20:00 Dose: 0.04 units/min, 2.4 mls/hr Meropenem 500 mg/ Sodium (Chloride) 100 mls @ 100 mls/hr IVPB Q8 [facility] PRN Reason: Protocol Last Admin: 03/27/18 06:15 Dose: 100 mls/hr Aztreonam 1 gm/ Sodium (Chloride) 100 mls @ 200 mls/hr IVPB Q8H [facility] PRN Reason: Protocol Last Admin: 03/27/18 04:27 Dose: 200 mls/hr Insulin Human Regular (Novolin R) 0 unit SC Q6H [facility] PRN Reason: Protocol Last Admin: 03/27/18 05:44 Dose: 6 unit Insulin Human Regular (Novolin R) 0 unit SC ACHS [facility] PRN Reason: Protocol Propranolol HCl (Inderal) 10 mg PO DAILY [facility] Last Admin: 03/26/18 09:12 Dose: 10 mg Propylthiouracil (Propylthiouracil) 100 mg PO Q6 [facility] Last Admin: 03/27/18 05:44 Dose: 100 mg - Labs Labs: 03/27/18 06:29 03/27/18 06:31 PT 34.1 SECONDS (9.7-12.2) H* 03/25/18 16:34 INR 3.1 03/25/18 16:34 - Constitutional Appears: Toxic, Chronically Ill - Head Exam Head Exam: ATRAUMATIC, NORMOCEPHALIC - Eye Exam Eye Exam: Scleral icterus - ENT Exam ENT Exam: Mucous Membranes Dry - Respiratory Exam Respiratory Exam: absent: Respiratory Distress Additional comments: mechanical ventilation - Cardiovascular Exam Cardiovascular Exam: REGULAR RHYTHM. absent: Tachycardia - GI/Abdominal Exam GI & Abdominal Exam: Soft. absent: Distended, Guarding, Tenderness, Rebound - Neurological Exam Additional comments: sedated - Skin Skin Exam: Dry, Warm Additional comments: mild jaundice Assessment and Plan - Assessment and Plan (Free Text) Assessment: 72 y/o female w/ sepsis and thyroid storm now with transaminitis Plan: -Cholecystitis r/o, HIDA neg -TBili elevated on admission and continues to rise, could be 2/2 to shock liver vs CBD pathology -recommend GI consult -possible MRCP pending GI recs -will follow -further recs per Dr. Maria G SOS[facility] PGY3 <Warren Cummins - Last Filed: 03/29/18 22:22> Objective - Vital Signs/Intake and Output Vital Signs (last 24 hours): Temp Pulse Resp BP Pulse Ox 97.8 F 74 23 106/49 L 92 L 03/29/18 16:00 03/29/18 18:11 03/29/18 18:11 03/29/18 18:11 03/29/18 18:11 Intake and Output: 03/29/18 03/30/18 18:59 06:59 Intake Total 2187.1 Output Total 1430 Balance 757.1 - Medications Medications: Current Medications Acetaminophen (Tylenol 650mg/20.3ml Solution Ud) 650 mg PO Q4H PRN PRN Reason: Temperature above 100.6 Last Admin: 03/28/18 14:47 Dose: 650 mg Cholestyramine Resin (Prevalite) 4 gm PO Q8H [facility] Last Admin: 03/29/18 15:20 Dose: 4 gm Famotidine (Pepcid) 20 mg PO BID [facility] Last Admin: 03/29/18 17:57 Dose: 20 mg Norepinephrine Bitartrate 4 mg (/ Dextrose) 254 mls @ 15.24 mls/hr IV .[id number] PRN; Protocol; 4 MCG/MIN PRN Reason: TITRATE PER MD ORDER Last Admin: 03/29/18 17:51 Dose: 3 mcg/min, 11.43 mls/hr Vasopressin 40 units/ Sodium (Chloride) 40 mls @ 0.6 mls/hr IV .Q24H [facility]; 0.01 UNITS/MIN PRN Reason: Protocol Last Admin: 03/29/18 17:49 Dose: 0.03 units/min, 1.8 mls/hr Meropenem 500 mg/ Sodium (Chloride) 100 mls @ 100 mls/hr IVPB Q8 [facility] PRN Reason: Protocol Last Admin: 03/29/18 21:09 Dose: 100 mls/hr Vancomycin/Sodium Chloride (Vancomycin 1 Gm/Ns 200 Ml) 1 gm in 200 mls @ 166.7 mls/hr IVPB Q24H [facility] PRN Reason: Protocol Stop: 04/01/18 10:01 Last Admin: 03/29/18 09:51 Dose: 166.7 mls/hr Acyclovir 500 mg/ Sodium (Chloride) 100 mls @ 100 mls/hr IV Q12H [facility] PRN Reason: Protocol Last Admin: 03/29/18 15:20 Dose: 100 mls/hr Sodium Chloride (Sodium Chloride 0.9%) 1,000 mls @ 75 mls/hr IV .[id number] [facility] Last Admin: 03/29/18 09:49 Dose: Not Given Fluconazole (Diflucan Iv 100 Mg/50 Ml Ns) 50 mls @ 100 mls/hr IVPB Q24H [facility] PRN Reason: Protocol Last Admin: 03/29/18 17:46 Dose: 100 mls/hr Levetiracetam 1,000 mg/ Sodium (Chloride) 110 mls @ 420 mls/hr IVPB Q12H [facility] Last Admin: 03/29/18 14:41 Dose: 420 mls/hr Propofol (Diprivan) 1,000 mg in 100 mls @ 1.742 mls/hr IV .Q24H PRN; Protocol; 5 MCG/KG/MIN PRN Reason: TITRATE PER MD ORDER Last Admin: 03/29/18 13:46 Dose: 5 mcg/kg/min, 1.742 mls/hr Insulin Aspart (Novolog) 0 unit SC Q6H [facility] PRN Reason: Protocol Last Admin: 03/29/18 17:57 Dose: Not Given Lactulose (Enulose) 20 gm PO BID [facility] Last Admin: 03/29/18 17:47 Dose: 20 gm Midodrine (Proamatine) 5 mg PO Q8H [facility] Last Admin: 03/29/18 21:19 Dose: 5 mg Phytonadione (Vitamin K Tab) 10 mg PO DAILY [facility] Stop: 03/31/18 10:01 Last Admin: 03/29/18 16:00 Dose: 10 mg Potassium Phos/Sodium Phos (Neutra-Phos) 1 pkt PO BID [facility] Last Admin: 03/29/18 17:59 Dose: 1 pkt Propranolol HCl (Inderal) 10 mg PO DAILY [facility] Last Admin: 03/29/18 09:50 Dose: 10 mg Propylthiouracil (Propylthiouracil) 300 mg PO Q8H [facility] Stop: 03/30/18 12:01 Last Admin: 03/29/18 21:00 Dose: 300 mg - Labs Labs: 03/29/18 07:04 03/29/18 07:01 PT 30.2 SECONDS (9.7-12.2) H* 03/29/18 15:20 INR 2.8 03/29/18 15:20 Attending/Attestation - Attestation I have personally seen and examined this patient.: Yes I have fully participated in the care of the patient.: Yes I have reviewed all pertinent clinical information, including history, physical exam and plan: Yes Notes (Text): Pt was seen and examined at bedside Agree with above note and assessment Pt is improving clinically IV antibiotics No acute general surgical intervention required f.u prn Plan d.w primary team in detail
--- NOTE | 2018-03-27 08:29 | RAD ---
Chest x-ray single frontal view History: Ventilated. Comparison: 03/16/2018 Findings: Lines and tubes in stable position. Diffuse increased interstitial lung markings which may represent venous congestion versus edema versus infiltrate. Right hilar prominence. Tortuous ectatic aorta. Mild cardiomegaly. Degenerative changes in the spine and shoulders. Impression: Lines and tubes in stable position. Diffuse increased interstitial lung markings which may represent venous congestion versus edema versus infiltrate. Right hilar prominence. Tortuous ectatic aorta. Mild cardiomegaly.
[2018-03-27 08:35] LABS: BANDS 18 % (0-2); LYMPHOCYTE 4 % (20-40); MONOCYTE 6 % (0-10); PLATELET ESTIMATE SLIGHTLY DECREASED (NORMAL); REACTIVE LYMPHOCYTES 1 % (0-0); TOTAL CELLS COUNTED 100
[2018-03-27 08:36] LABS: LARGE PLATELETS PRESENT; OVALOCYTES SLIGHT
[2018-03-27 08:37] LABS: NEUTROPHIL 71 % (50-75); POIKILOCYTOSIS SLIGHT
--- NOTE | 2018-03-27 09:04 | CP.PCM.PN ---
Subjective - Date & Time of Evaluation Date of Evaluation: 03/27/18 Time of Evaluation: 09:00 - Subjective Subjective: Patient remains intubated. She remains on two pressor medications as well as sodium bicarb ggt The recorded urine output is 1,200 The urine culture still has not returned, ordering another one. Abx changed to meropenom and aztreonam by ID The T3 decreased yesterday Tmax was 100.3 yesterday. Not on cooling blankets at this moment Family members at bedside and we again discussed. Yesterday had Head CT without contrast and this was negative for acute events. As mentioned previously this is a 72 year old female who was just recently diagnosed with hyperthyroidism outpatient. The patient came in on 03/24 with severe uncontrolled diarrhea. She was feeling weak, tired, and reportedly palpitations. She fell out of her bed as she was trying to go to bathroom. She has had weight loss for some time as well. There have been fevers as well. Her respirations and mental status became worse and she required intubation. My concern is she is in a thyroid crisis/storm possibly from an infection or possible from IV contrast. She also has a very low EF and hypokinesis and it maybe that she had a cardiac arrthmia as well. Her T3 has decreased. Objective - Vital Signs/Intake and Output Vital Signs (last 24 hours): Temp Pulse Resp BP Pulse Ox 98.8 F 83 16 120/54 L 98 03/27/18 06:00 03/27/18 07:50 03/27/18 07:50 03/27/18 07:44 03/27/18 07:50 Intake and Output: 03/27/18 03/27/18 06:59 18:59 Intake Total 3952.8 209.9 Output Total 730 Balance 3222.8 209.9 - Medications Medications: Current Medications Acetaminophen (Tylenol 650mg/20.3ml Solution Ud) 650 mg PO Q4H PRN PRN Reason: Temperature above 100.6 Last Admin: 03/25/18 17:23 Dose: 650 mg Cholestyramine Resin (Prevalite) 4 gm PO Q8H NEREYDA Last Admin: 03/27/18 00:12 Dose: 4 gm Enoxaparin Sodium (Lovenox) 30 mg SC DAILY NEREYDA Famotidine (Pepcid) 20 mg PO BID NEREYDA Last Admin: 03/26/18 17:06 Dose: 20 mg Hydrocortisone Sodium Succinate (Solu-Cortef) 100 mg IV Q8H NEREYDA Last Admin: 03/27/18 00:11 Dose: 100 mg Norepinephrine Bitartrate 4 mg (/ Dextrose) 254 mls @ 15.24 mls/hr IV .[id number] PRN; Protocol; 4 MCG/MIN PRN Reason: TITRATE PER MD ORDER Last Admin: 03/27/18 05:13 Dose: 11.81 mcg/min, 45 mls/hr Sodium Bicarbonate 150 meq/ (Dextrose) 1,000 mls @ 150 mls/hr IV .[id number] NEREYDA Last Admin: 03/27/18 06:50 Dose: 150 mls/hr Metronidazole (Flagyl) 500 mg in 100 mls @ 100 mls/hr IVPB Q8 NEREYDA PRN Reason: Protocol Last Admin: 03/27/18 05:11 Dose: 100 mls/hr Vasopressin 40 units/ Sodium (Chloride) 40 mls @ 0.6 mls/hr IV .Q24H NEREYDA; 0.01 UNITS/MIN PRN Reason: Protocol Last Titration: 03/26/18 20:00 Dose: 0.04 units/min, 2.4 mls/hr Meropenem 500 mg/ Sodium (Chloride) 100 mls @ 100 mls/hr IVPB Q8 NEREYDA PRN Reason: Protocol Last Admin: 03/27/18 06:15 Dose: 100 mls/hr Aztreonam 1 gm/ Sodium (Chloride) 100 mls @ 200 mls/hr IVPB Q8H NEREYDA PRN Reason: Protocol Last Admin: 03/27/18 04:27 Dose: 200 mls/hr Insulin Human Regular (Novolin R) 0 unit SC Q6H NEREYDA PRN Reason: Protocol Last Admin: 03/27/18 05:44 Dose: 6 unit Insulin Human Regular (Novolin R) 0 unit SC ACHS NEREYDA PRN Reason: Protocol Propranolol HCl (Inderal) 10 mg PO DAILY [facility] Last Admin: 03/26/18 09:12 Dose: 10 mg Propylthiouracil (Propylthiouracil) 100 mg PO Q6 [facility] Last Admin: 03/27/18 05:44 Dose: 100 mg - Labs Labs: 03/27/18 06:29 03/27/18 06:31 PT 34.1 SECONDS (9.7-12.2) H* 03/25/18 16:34 INR 3.1 03/25/18 16:34 - Constitutional Appears: Toxic, Unkempt, Cachectic, Chronically Ill - Eye Exam Eye Exam: EOMI, Normal appearance - ENT Exam ENT Exam: Mucous Membranes Moist Additional comments: NGT/OGT - Neck Exam Additional comments: Central line - Respiratory Exam Respiratory Exam: Decreased Breath Sounds Additional comments: Mechanical breath sounds, intubated - GI/Abdominal Exam GI & Abdominal Exam: Soft, Normal Bowel Sounds - Neurological Exam Neuro motor strength exam: Left Upper Extremity: 0, Right Upper Extremity: 0, Left Lower Extremity: 0, Right Lower Extremity: 0 - Skin Skin Exam: Pallor, Warm Assessment and Plan - Assessment and Plan (Free Text) Assessment: 72 year old female with past medical history of recently diagnosed hyperthyroidism is admitted for intractable diarrhea, shortly thereafter developed respiratory distress and required intubation. There have been fevers as high as 104 and also rapid tachycardia. An echo was done showing severe hypokinesis and also low EF of 20%. She is also being covered with IV abx in case of infection as well. Thyroid Storm, elevated temperatures, rapid HR 03/27: The T3 has decreased from 23 to 13. Yesterday started on PTU and Cholestramyine and Hydrocotizone IV. My concern is there maybe some underlying infection that has exacerbated her into thyroid crisis. Or this maybe have been made worse with IV contrast material. The blood cultures negative so far, the urine culture is being re- ordered. CXRAYs look ok, probably not pnuemonia 03/26: Tmax was 100.1, HR are in the 80s at this time NSR at this moment. She is now on Hydrocortisone 100 mg IV Q8, Cholestramynine 4 via NGT to slow T4 to T3 coversion. Remains on methimazole, considering her situation may have to change to PTU 03/25: Discussed with endocrinology. Has recieved IV hydrocortosone 250 mg Patient has been given IV hydrocortisone as well increased dose of tapazole to Q8. Continue the propranolol now, has also received IV propranol Per discussion with family members the patient has only been recently diagnosed with hyperthyroidism Will continue the following medications and adjust accordingly: methimazole 10 mg Q8H, Inderall 10 QD Respiratory failure: Now intubated 03/26: The chest XRAY is clear. Appreciate cardiology evaluation. 03/25: Likley secondary from worsening cardiac function. EF is very low and hypokinesis seen on echo She now has a central line and also on pressor IV levophed as well as bicarb ggt. Hypoglycemia: 03/27: Overnight was high. The D10 was stopped overnight. Started on SSI this morning. Continue follow accucheks 03/26: Overnight has had several low accuchecks - misti she has burned up a lot of her energy stores (fat/glycogen) because of the hyperthyroidism. She was placed on D10 overnight @ 50 Potential sepsis, cultures pending 03/27: Discussed with ID yesterday. Abx changed to meropenom, aztreonam and also flagyl. Blood cultures negative so far. Urine culture has to be taken again. Her UA suggest possible UTI. She did have a HIDA scan and this was negative. 03/26: Last night was on Zosyn. The bands this morning increased to 16, added vancomycin x 1. Blood cultures negative 24 hrs, urine culture pending, the CXRAY does not have infiltrates Intractable diarrhea - secondary to hyperthyroidism Dehydration Dizziness Likely secondary to hyperthyroidism Will check stool studies for stool leukocytes, cultures, c diff and electrolytes Once stool studies negative for infective cause, will place on Imodium for relief Liver Lesion Incidental finding on CT. 5mm small lesion. If low risk of malignancy, no further follow up necessary. If high risk, recommended follow up CT or MRI in 6- 12 months. 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 Recommended follow up abdominal MRI in 6-12 months.
--- NOTE | 2018-03-27 09:41 | CP.PCM.CON ---
<Jeremias Ribeiro - Last Filed: 03/27/18 10:48> History of Present Illness - History of Present Illness History of Present Illness: PGY4 Initial GI Consult Albina Jewell is a 72F w/ hx of hyperthyroidism who presented to the ED with abd pain and diarrhea. At the time of evaluation, pt was intubated and was not able to answer questions. All information obtained was from the EMR, staff , and daughter. Pt arrived to the Ed with complaints of diarrhea, weakness, and abd pain. Pt had been recently diagnosed with hyperthyroidism was started on methimazole as an oupt. The day prior to arrival in the ED patient complained of subjective fevers and chills. The daughter reported her worsening diarrhea 2 -3 days prior. Apparently the stool was watery and not formed. Denies any melena or BRBPR. She had about 3 episodes of NB/NB vomiting. Patient was trying to get out of bed when she felt very dizzy and she fell. Denies hitting her or any LOC. She was found to have acute gallbladder wall thickening and pericholecystic fluid on CT and US. Pt was then taken to [facility] for further eval. After HIDA Scan, pt was in respiratory distress and was eventually extubated. Pt hospital course has been complicated, as she is currently being treated for thyroid storm. GI was consulted for elevated LFTS. PMHx: Hyperhyroidism Sx: denies Social: current smoker 40-50 years, denies ETOH or drug use Meds: methimazole 10 mg BID and Propanolol 20 mg PO BID Endo hx: unknown ROS: could not assess due to sedation Past Patient History - Past Social History Smoking Status: Light Smoker < 10 Cigarettes Daily - CARDIAC Hx Cardia Arrhythmia: Yes - PULMONARY Hx Respiratory Disorders: No - NEUROLOGICAL Hx Neurological Disorder: No - HEENT Hx HEENT Problems: No - RENAL Hx Chronic Kidney Disease: No - ENDOCRINE/METABOLIC Hx Hyperthyroidism: Yes (DX March) - HEMATOLOGICAL/ONCOLOGICAL Hx Blood Disorders: No - INTEGUMENTARY Hx Dermatological Problems: No - MUSCULOSKELETAL/RHEUMATOLOGICAL Hx Falls: Yes (felt dizzy at home and fell) - GASTROINTESTINAL Hx Diarrhea: Yes Hx Nausea: Yes - GENITOURINARY/GYNECOLOGICAL Hx Genitourinary Disorders: No - PSYCHIATRIC Hx Psychophysiologic Disorder: No Hx Substance Use: No - SURGICAL HISTORY Hx Surgeries: No - ANESTHESIA Hx Anesthesia: Yes Hx Anesthesia Reactions: No Hx Malignant Hyperthermia: No Has any member of the family had a problem w/ anesthesia?: No Meds Allergies/Adverse Reactions: Allergies Allergy/AdvReac Type Severity Reaction Status Date / Time No Known Allergies Allergy Unverified 03/24/18 20:31 - Medications Medications: Current Medications Acetaminophen (Tylenol 650mg/20.3ml Solution Ud) 650 mg PO Q4H PRN PRN Reason: Temperature above 100.6 Last Admin: 03/25/18 17:23 Dose: 650 mg Cholestyramine Resin (Prevalite) 4 gm PO Q8H [facility] Last Admin: 03/27/18 09:24 Dose: 4 gm Enoxaparin Sodium (Lovenox) 30 mg SC DAILY [facility] Last Admin: 03/27/18 09:22 Dose: 30 mg Famotidine (Pepcid) 20 mg PO BID [facility] Last Admin: 03/27/18 09:23 Dose: 20 mg Hydrocortisone Sodium Succinate (Solu-Cortef) 100 mg IV Q8H [facility] Last Admin: 03/27/18 09:00 Dose: 100 mg Norepinephrine Bitartrate 4 mg (/ Dextrose) 254 mls @ 15.24 mls/hr IV .[id number] PRN; Protocol; 4 MCG/MIN PRN Reason: TITRATE PER MD ORDER Last Titration: 03/27/18 09:23 Dose: 9 mcg/min, 34.29 mls/hr Sodium Bicarbonate 150 meq/ (Dextrose) 1,000 mls @ 150 mls/hr IV .Q6H40M [facility] Last Admin: 03/27/18 06:50 Dose: 150 mls/hr Metronidazole (Flagyl) 500 mg in 100 mls @ 100 mls/hr IVPB Q8 NEREYDA PRN Reason: Protocol Last Admin: 03/27/18 05:11 Dose: 100 mls/hr Vasopressin 40 units/ Sodium (Chloride) 40 mls @ 0.6 mls/hr IV .Q24H NEREYDA; 0.01 UNITS/MIN PRN Reason: Protocol Last Titration: 03/26/18 20:00 Dose: 0.04 units/min, 2.4 mls/hr Meropenem 500 mg/ Sodium (Chloride) 100 mls @ 100 mls/hr IVPB Q8 NEREYDA PRN Reason: Protocol Last Admin: 03/27/18 06:15 Dose: 100 mls/hr Aztreonam 1 gm/ Sodium (Chloride) 100 mls @ 200 mls/hr IVPB Q8H NEREYDA PRN Reason: Protocol Last Admin: 03/27/18 04:27 Dose: 200 mls/hr Potassium Chloride (Potassium Chloride 20 Meq/100 Ml) 20 meq in 100 mls @ 50 mls/hr IVPB ONCE ONE Stop: 03/27/18 11:17 Last Admin: 03/27/18 09:25 Dose: 50 mls/hr Potassium Chloride (Potassium Chloride 20 Meq/100 Ml) 20 meq in 100 mls @ 50 mls/hr IVPB ONCE ONE Stop: 03/27/18 13:59 Insulin Human Regular (Novolin R) 0 unit SC Q6H NEREYDA PRN Reason: Protocol Last Admin: 03/27/18 05:44 Dose: 6 unit Insulin Human Regular (Novolin R) 0 unit SC ACHS NEREYDA PRN Reason: Protocol Propranolol HCl (Inderal) 10 mg PO DAILY [facility] Last Admin: 03/27/18 09:26 Dose: 10 mg Propylthiouracil (Propylthiouracil) 100 mg PO Q6 [facility] Last Admin: 03/27/18 05:44 Dose: 100 mg Physical Exam - Constitutional Appears: Well, No Acute Distress - Head Exam Head Exam: ATRAUMATIC, NORMOCEPHALIC - Eye Exam Eye Exam: Scleral icterus - ENT Exam ENT Exam: Mucous Membranes Moist, Normal Exam - Neck Exam Neck exam: Positive for: Normal Inspection - Respiratory Exam Respiratory Exam: Clear to Auscultation Bilateral, NORMAL BREATHING PATTERN. absent: Rales, Rhonchi, Wheezes, Respiratory Distress - Cardiovascular Exam Cardiovascular Exam: REGULAR RHYTHM, +S1, +S2 - GI/Abdominal Exam GI & Abdominal Exam: Normal Bowel Sounds, Rigid, Soft. absent: Diminished Bowel Sounds, Distended, Hernia, Organomegaly, Tenderness - Extremities Exam Extremities exam: Negative for: joint swelling, pedal edema - Neurological Exam Neurological exam: Altered - Psychiatric Exam Additional comments: cannot assess - Skin Skin Exam: Dry, Intact, Warm Additional comments: juandiced Results - Vital Signs Recent Vital Signs: Last Vital Signs Temp 98.3 F 03/27/18 08:00 Pulse 82 03/27/18 09:00 Resp 18 03/27/18 09:00 BP 122/54 L 03/27/18 09:00 Pulse Ox 98 03/27/18 09:00 - Labs Result Diagrams: 03/27/18 06:29 03/27/18 06:31 Labs: Laboratory Results - last 24 hr 03/25/18 03/26/18 03/26/18 08:15 06:14 08:54 WBC RBC Hgb Hct MCV MCH MCHC RDW Plt Count MPV Neut % (Auto) Lymph % (Auto) [place] % (Auto) Eos % (Auto) Baso % (Auto) Neut # (Auto) Lymph # (Auto) [place] # (Auto) Eos # (Auto) Baso # (Auto) Neutrophils % (Manual) Band Neutrophils % Lymphocytes % (Manual) Reactive Lymphs % Monocytes % (Manual) Platelet Estimate Large Platelets Poikilocytosis (manual Ovalocytes Puncture Site pCO2 pO2 HCO3 ABG pH ABG Total CO2 ABG O2 Saturation ABG Base Excess ABG Hemoglobin ABG Carboxyhemoglobin POC ABG HHb (Measured) ABG Methemoglobin Jake Test A-a O2 Difference Respiratory Index Hgb O2 Saturation Vent Mode Mechanical Rate FiO2 Tidal Volume PEEP Sodium Potassium Chloride Carbon Dioxide Anion Gap BUN Creatinine Est GFR ( Amer) Est GFR (Non-Af Amer) POC Glucose (mg/dL) Random Glucose Calcium Phosphorus Magnesium Total Bilirubin AST ALT Alkaline Phosphatase Total Creatine Kinase Total Protein Albumin Globulin Albumin/Globulin Ratio Procalcitonin 8.51 H Free T4 Thyroxine (T4) Free T3 pg/mL Total T3 Cortisol AM Sample > 616.0 H Stool Leukocytes, Qual Positive H Random Vancomycin C. difficile Ag & Toxin Negative 03/26/18 03/26/18 03/26/18 08:54 11:36 17:54 WBC RBC Hgb Hct MCV MCH MCHC RDW Plt Count MPV Neut % (Auto) Lymph % (Auto) [place] % (Auto) Eos % (Auto) Baso % (Auto) Neut # (Auto) Lymph # (Auto) [place] # (Auto) Eos # (Auto) Baso # (Auto) Neutrophils % (Manual) Band Neutrophils % Lymphocytes % (Manual) Reactive Lymphs % Monocytes % (Manual) Platelet Estimate Large Platelets Poikilocytosis (manual Ovalocytes Puncture Site pCO2 pO2 HCO3 ABG pH ABG Total CO2 ABG O2 Saturation ABG Base Excess ABG Hemoglobin ABG Carboxyhemoglobin POC ABG HHb (Measured) ABG Methemoglobin Jake Test A-a O2 Difference Respiratory Index Hgb O2 Saturation Vent Mode Mechanical Rate FiO2 Tidal Volume PEEP Sodium Potassium Chloride Carbon Dioxide Anion Gap BUN Creatinine Est GFR ( Amer) Est GFR (Non-Af Amer) POC Glucose (mg/dL) 201 H 259 H Random Glucose Calcium Phosphorus Magnesium Total Bilirubin AST ALT Alkaline Phosphatase Total Creatine Kinase Total Protein Albumin Globulin Albumin/Globulin Ratio Procalcitonin Free T4 Thyroxine (T4) Free T3 pg/mL > 22.80 H Total T3 6.42 H Cortisol AM Sample Stool Leukocytes, Qual Random Vancomycin C. difficile Ag & Toxin 03/26/18 03/27/18 03/27/18 23:37 05:09 05:38 WBC RBC Hgb Hct MCV MCH MCHC RDW Plt Count MPV Neut % (Auto) Lymph % (Auto) [place] % (Auto) Eos % (Auto) Baso % (Auto) Neut # (Auto) Lymph # (Auto) [place] # (Auto) Eos # (Auto) Baso # (Auto) Neutrophils % (Manual) Band Neutrophils % Lymphocytes % (Manual) Reactive Lymphs % Monocytes % (Manual) Platelet Estimate Large Platelets Poikilocytosis (manual Ovalocytes Puncture Site Rr pCO2 47 H pO2 107 H HCO3 33.5 H ABG pH 7.49 H ABG Total CO2 37.2 H ABG O2 Saturation 99.3 H ABG Base Excess 11.0 H ABG Hemoglobin 12.0 ABG Carboxyhemoglobin 1.8 H POC ABG HHb (Measured) 0.7 ABG Methemoglobin 1.1 Jake Test Pos A-a O2 Difference 119.0 Respiratory Index 1.1 Hgb O2 Saturation 96.3 Vent Mode Prvc Mechanical Rate 16 FiO2 40.0 Tidal Volume 400 PEEP 5 Sodium Potassium Chloride Carbon Dioxide Anion Gap BUN Creatinine Est GFR ( Amer) Est GFR (Non-Af Amer) POC Glucose (mg/dL) 325 H 457 H* Random Glucose Calcium Phosphorus Magnesium Total Bilirubin AST ALT Alkaline Phosphatase Total Creatine Kinase Total Protein Albumin Globulin Albumin/Globulin Ratio Procalcitonin Free T4 Thyroxine (T4) Free T3 pg/mL Total T3 Cortisol AM Sample Stool Leukocytes, Qual Random Vancomycin C. difficile Ag & Toxin 03/27/18 03/27/18 03/27/18 06:29 06:31 06:31 WBC 13.9 H RBC 3.93 Hgb 12.5 Hct 37.1 MCV 94.3 MCH 31.9 H MCHC 33.8 RDW 14.3 Plt Count 114 L D MPV 10.0 Neut % (Auto) 86.7 H Lymph % (Auto) 7.5 L [place] % (Auto) 4.7 Eos % (Auto) 0.7 Baso % (Auto) 0.4 Neut # (Auto) 12.0 H Lymph # (Auto) 1.0 [place] # (Auto) 0.6 Eos # (Auto) 0.1 Baso # (Auto) 0.1 Neutrophils % (Manual) 71 Band Neutrophils % 18 H* Lymphocytes % (Manual) 4 L Reactive Lymphs % 1 H Monocytes % (Manual) 6 Platelet Estimate Slightly decreased L Large Platelets Present Poikilocytosis (manual Slight Ovalocytes Slight Puncture Site pCO2 pO2 HCO3 ABG pH ABG Total CO2 ABG O2 Saturation ABG Base Excess ABG Hemoglobin ABG Carboxyhemoglobin POC ABG HHb (Measured) ABG Methemoglobin Jake Test A-a O2 Difference Respiratory Index Hgb O2 Saturation Vent Mode Mechanical Rate FiO2 Tidal Volume PEEP Sodium 137 Potassium 3.1 L Chloride 90 L Carbon Dioxide 39 H Anion Gap 11 BUN 55 H Creatinine 1.3 H Est GFR ( Amer) 49 Est GFR (Non-Af Amer) 40 POC Glucose (mg/dL) Random Glucose 412 H* D Calcium 6.2 L Phosphorus 4.0 Magnesium 2.0 Total Bilirubin 5.1 H AST 2304 H ALT 668 H D Alkaline Phosphatase 80 Total Creatine Kinase 1322 H Total Protein 4.9 L Albumin 2.3 L Globulin 2.7 Albumin/Globulin Ratio 0.8 L Procalcitonin Free T4 Thyroxine (T4) 10.1 Free T3 pg/mL 13.40 H Total T3 2.80 H Cortisol AM Sample Stool Leukocytes, Qual Random Vancomycin 6.5 C. difficile Ag & Toxin 03/27/18 06:31 WBC RBC Hgb Hct MCV MCH MCHC RDW Plt Count MPV Neut % (Auto) Lymph % (Auto) [place] % (Auto) Eos % (Auto) Baso % (Auto) Neut # (Auto) Lymph # (Auto) [place] # (Auto) Eos # (Auto) Baso # (Auto) Neutrophils % (Manual) Band Neutrophils % Lymphocytes % (Manual) Reactive Lymphs % Monocytes % (Manual) Platelet Estimate Large Platelets Poikilocytosis (manual Ovalocytes Puncture Site pCO2 pO2 HCO3 ABG pH ABG Total CO2 ABG O2 Saturation ABG Base Excess ABG Hemoglobin ABG Carboxyhemoglobin POC ABG HHb (Measured) ABG Methemoglobin Jake Test A-a O2 Difference Respiratory Index Hgb O2 Saturation Vent Mode Mechanical Rate FiO2 Tidal Volume PEEP Sodium Potassium Chloride Carbon Dioxide Anion Gap BUN Creatinine Est GFR ( Amer) Est GFR (Non-Af Amer) POC Glucose (mg/dL) Random Glucose Calcium Phosphorus Magnesium Total Bilirubin AST ALT Alkaline Phosphatase Total Creatine Kinase Total Protein Albumin Globulin Albumin/Globulin Ratio Procalcitonin Free T4 6.00 H Thyroxine (T4) Free T3 pg/mL Total T3 Cortisol AM Sample Stool Leukocytes, Qual Random Vancomycin C. difficile Ag & Toxin Assessment & Plan - Assessment and Plan (Free Text) Assessment: Albina Jewell is a 72F w/ hx of hyperthyroidism who presented w/ near syncope, diarrhea, and abd pain. Pt was found to have acute cholecystitis on imaging. Course complicated with sepsis, rhabdomyolysis, thyroid storm, respiratory failure Acute Cholecystitis Repiratory Failure Diarrhea, r/o infectous etiology, DDx: thyroid storm Thyroid storm Elevate liver enzymes, etiology unknown, r/o autoimmune and viral etiology; ddx : acute cholecystitis, rhabdomyolysis MICHELLE Sepsis cholelithiasis Plan: -would stop tube feeds for now -continue to monitor LFTs -recheck INR -continue abx -will sent for hepatitis and autoimmune serologies -HIDA neg -CT revealed normal CBD, + cholelithiasis -continue IV Hydration -Abd U/s Revealed normal CBD -will continue to follow D/W Dr. Pacheco <Loc Pacheco - Last Filed: 03/27/18 14:03> Meds - Medications Medications: Current Medications Acetaminophen (Tylenol 650mg/20.3ml Solution Ud) 650 mg PO Q4H PRN PRN Reason: Temperature above 100.6 Last Admin: 03/25/18 17:23 Dose: 650 mg Cholestyramine Resin (Prevalite) 4 gm PO Q8H [facility] Last Admin: 03/27/18 09:24 Dose: 4 gm Enoxaparin Sodium (Lovenox) 30 mg SC DAILY [facility] Last Admin: 03/27/18 09:22 Dose: 30 mg Famotidine (Pepcid) 20 mg PO BID [facility] Last Admin: 03/27/18 09:23 Dose: 20 mg Hydrocortisone Sodium Succinate (Solu-Cortef) 50 mg IV Q12H NEREYDA Norepinephrine Bitartrate 4 mg (/ Dextrose) 254 mls @ 15.24 mls/hr IV .[id number] PRN; Protocol; 4 MCG/MIN PRN Reason: TITRATE PER MD ORDER Last Admin: 03/27/18 12:01 Dose: 9 mcg/min, 34.29 mls/hr Metronidazole (Flagyl) 500 mg in 100 mls @ 100 mls/hr IVPB Q8 NEREYDA PRN Reason: Protocol Last Admin: 03/27/18 13:42 Dose: 100 mls/hr Vasopressin 40 units/ Sodium (Chloride) 40 mls @ 0.6 mls/hr IV .Q24H NEREYDA; 0.01 UNITS/MIN PRN Reason: Protocol Last Titration: 03/26/18 20:00 Dose: 0.04 units/min, 2.4 mls/hr Meropenem 500 mg/ Sodium (Chloride) 100 mls @ 100 mls/hr IVPB Q8 NEREYDA PRN Reason: Protocol Last Admin: 03/27/18 13:52 Dose: 100 mls/hr Aztreonam 1 gm/ Sodium (Chloride) 100 mls @ 200 mls/hr IVPB Q8H NEREYDA PRN Reason: Protocol Last Admin: 03/27/18 11:57 Dose: 200 mls/hr Potassium Chloride (Potassium Chloride 20 Meq/100 Ml) 20 meq in 100 mls @ 50 mls/hr IVPB ONCE ONE Stop: 03/27/18 13:59 Last Admin: 03/27/18 11:57 Dose: 50 mls/hr Vancomycin/Sodium Chloride (Vancomycin 1 Gm/Ns 200 Ml) 1 gm in 200 mls @ 166.7 mls/hr IVPB Q24H NEREYDA PRN Reason: Protocol Stop: 04/01/18 10:01 Last Admin: 03/27/18 12:20 Dose: 166.7 mls/hr Sodium Chloride (Sodium Chloride 0.9%) 1,000 mls @ 100 mls/hr IV .Q10H NEREYDA Levetiracetam 1,000 mg/ (Dextrose) 110 mls @ 420 mls/hr IVPB Q12H NEREYDA Insulin Aspart (Novolog) 0 unit SC Q6H NEREYDA PRN Reason: Protocol Last Admin: 03/27/18 12:03 Dose: 10 unit Midodrine (Proamatine) 5 mg PO Q8H NEREYDA Propranolol HCl (Inderal) 10 mg PO DAILY NEREYDA Last Admin: 03/27/18 09:26 Dose: 10 mg Propylthiouracil (Propylthiouracil) 300 mg PO Q8H NEREYDA Stop: 03/30/18 12:01 Last Admin: 03/27/18 12:07 Dose: 300 mg Results - Vital Signs Recent Vital Signs: Last Vital Signs Temp 99.7 F H 03/27/18 12:00 Pulse 82 03/27/18 13:14 Resp 20 03/27/18 13:14 BP 110/45 L 03/27/18 13:00 Pulse Ox 97 03/27/18 13:14 - Labs Result Diagrams: 03/27/18 06:29 03/27/18 06:31 Labs: Laboratory Results - last 24 hr 03/25/18 03/26/18 03/26/18 08:15 17:54 23:37 WBC RBC Hgb Hct MCV MCH MCHC RDW Plt Count MPV Neut % (Auto) Lymph % (Auto) [place] % (Auto) Eos % (Auto) Baso % (Auto) Neut # (Auto) Lymph # (Auto) [place] # (Auto) Eos # (Auto) Baso # (Auto) Neutrophils % (Manual) Band Neutrophils % Lymphocytes % (Manual) Reactive Lymphs % Monocytes % (Manual) Platelet Estimate Large Platelets Poikilocytosis (manual Ovalocytes PT INR Puncture Site pCO2 pO2 HCO3 ABG pH ABG Total CO2 ABG O2 Saturation ABG Base Excess ABG Hemoglobin ABG Carboxyhemoglobin POC ABG HHb (Measured) ABG Methemoglobin Jake Test A-a O2 Difference Respiratory Index Hgb O2 Saturation Vent Mode Mechanical Rate FiO2 Tidal Volume PEEP Sodium Potassium Chloride Carbon Dioxide Anion Gap BUN Creatinine Est GFR ( Amer) Est GFR (Non-Af Amer) POC Glucose (mg/dL) 259 H 325 H Random Glucose Lactic Acid Calcium Phosphorus Magnesium Total Bilirubin AST ALT Alkaline Phosphatase Ammonia Total Creatine Kinase Total Protein Albumin Globulin Albumin/Globulin Ratio Free T4 Thyroxine (T4) Free T3 pg/mL Total T3 Stool Leukocytes, Qual Positive H Random Vancomycin IgG Hepatitis A IgM Ab Hep Bs Antigen Hep B Core IgM Ab Hepatitis C Antibody 03/27/18 03/27/18 03/27/18 05:09 05:38 06:29 WBC 13.9 H RBC 3.93 Hgb 12.5 Hct 37.1 MCV 94.3 MCH 31.9 H MCHC 33.8 RDW 14.3 Plt Count 114 L D MPV 10.0 Neut % (Auto) 86.7 H Lymph % (Auto) 7.5 L [place] % (Auto) 4.7 Eos % (Auto) 0.7 Baso % (Auto) 0.4 Neut # (Auto) 12.0 H Lymph # (Auto) 1.0 [place] # (Auto) 0.6 Eos # (Auto) 0.1 Baso # (Auto) 0.1 Neutrophils % (Manual) 71 Band Neutrophils % 18 H* Lymphocytes % (Manual) 4 L Reactive Lymphs % 1 H Monocytes % (Manual) 6 Platelet Estimate Slightly decreased L Large Platelets Present Poikilocytosis (manual Slight Ovalocytes Slight PT INR Puncture Site Rr pCO2 47 H pO2 107 H HCO3 33.5 H ABG pH 7.49 H ABG Total CO2 37.2 H ABG O2 Saturation 99.3 H ABG Base Excess 11.0 H ABG Hemoglobin 12.0 ABG Carboxyhemoglobin 1.8 H POC ABG HHb (Measured) 0.7 ABG Methemoglobin 1.1 Jake Test Pos A-a O2 Difference 119.0 Respiratory Index 1.1 Hgb O2 Saturation 96.3 Vent Mode Prvc Mechanical Rate 16 FiO2 40.0 Tidal Volume 400 PEEP 5 Sodium Potassium Chloride Carbon Dioxide Anion Gap BUN Creatinine Est GFR ( Amer) Est GFR (Non-Af Amer) POC Glucose (mg/dL) 457 H* Random Glucose Lactic Acid Calcium Phosphorus Magnesium Total Bilirubin AST ALT Alkaline Phosphatase Ammonia Total Creatine Kinase Total Protein Albumin Globulin Albumin/Globulin Ratio Free T4 Thyroxine (T4) Free T3 pg/mL Total T3 Stool Leukocytes, Qual Random Vancomycin IgG Hepatitis A IgM Ab Hep Bs Antigen Hep B Core IgM Ab Hepatitis C Antibody 03/27/18 03/27/18 03/27/18 06:31 06:31 06:31 WBC RBC Hgb Hct MCV MCH MCHC RDW Plt Count MPV Neut % (Auto) Lymph % (Auto) [place] % (Auto) Eos % (Auto) Baso % (Auto) Neut # (Auto) Lymph # (Auto) [place] # (Auto) Eos # (Auto) Baso # (Auto) Neutrophils % (Manual) Band Neutrophils % Lymphocytes % (Manual) Reactive Lymphs % Monocytes % (Manual) Platelet Estimate Large Platelets Poikilocytosis (manual Ovalocytes PT INR Puncture Site pCO2 pO2 HCO3 ABG pH ABG Total CO2 ABG O2 Saturation ABG Base Excess ABG Hemoglobin ABG Carboxyhemoglobin POC ABG HHb (Measured) ABG Methemoglobin Jake Test A-a O2 Difference Respiratory Index Hgb O2 Saturation Vent Mode Mechanical Rate FiO2 Tidal Volume PEEP Sodium 137 Potassium 3.1 L Chloride 90 L Carbon Dioxide 39 H Anion Gap 11 BUN 55 H Creatinine 1.3 H Est GFR ( Amer) 49 Est GFR (Non-Af Amer) 40 POC Glucose (mg/dL) Random Glucose 412 H* D Lactic Acid Calcium 6.2 L Phosphorus 4.0 Magnesium 2.0 Total Bilirubin 5.1 H AST 2304 H ALT 668 H D Alkaline Phosphatase 80 Ammonia Total Creatine Kinase 1322 H Total Protein 4.9 L Albumin 2.3 L Globulin 2.7 Albumin/Globulin Ratio 0.8 L Free T4 6.00 H Thyroxine (T4) 10.1 Free T3 pg/mL 13.40 H Total T3 2.80 H Stool Leukocytes, Qual Random Vancomycin 6.5 IgG Hepatitis A IgM Ab Hep Bs Antigen Hep B Core IgM Ab Hepatitis C Antibody 03/27/18 03/27/18 03/27/18 11:30 11:52 11:52 WBC RBC Hgb Hct MCV MCH MCHC RDW Plt Count MPV Neut % (Auto) Lymph % (Auto) [place] % (Auto) Eos % (Auto) Baso % (Auto) Neut # (Auto) Lymph # (Auto) [place] # (Auto) Eos # (Auto) Baso # (Auto) Neutrophils % (Manual) Band Neutrophils % Lymphocytes % (Manual) Reactive Lymphs % Monocytes % (Manual) Platelet Estimate Large Platelets Poikilocytosis (manual Ovalocytes PT 34.1 H* INR 3.1 Puncture Site pCO2 pO2 HCO3 ABG pH ABG Total CO2 ABG O2 Saturation ABG Base Excess ABG Hemoglobin ABG Carboxyhemoglobin POC ABG HHb (Measured) ABG Methemoglobin Jake Test A-a O2 Difference Respiratory Index Hgb O2 Saturation Vent Mode Mechanical Rate FiO2 Tidal Volume PEEP Sodium Potassium Chloride Carbon Dioxide Anion Gap BUN Creatinine Est GFR ( Amer) Est GFR (Non-Af Amer) POC Glucose (mg/dL) 443 H* Random Glucose Lactic Acid 3.3 H Calcium Phosphorus Magnesium Total Bilirubin AST ALT Alkaline Phosphatase Ammonia Total Creatine Kinase Total Protein Albumin Globulin Albumin/Globulin Ratio Free T4 Thyroxine (T4) Free T3 pg/mL Total T3 Stool Leukocytes, Qual Random Vancomycin IgG Hepatitis A IgM Ab Hep Bs Antigen Hep B Core IgM Ab Hepatitis C Antibody 03/27/18 03/27/18 03/27/18 11:52 11:52 11:52 WBC RBC Hgb Hct MCV MCH MCHC RDW Plt Count MPV Neut % (Auto) Lymph % (Auto) [place] % (Auto) Eos % (Auto) Baso % (Auto) Neut # (Auto) Lymph # (Auto) [place] # (Auto) Eos # (Auto) Baso # (Auto) Neutrophils % (Manual) Band Neutrophils % Lymphocytes % (Manual) Reactive Lymphs % Monocytes % (Manual) Platelet Estimate Large Platelets Poikilocytosis (manual Ovalocytes PT INR Puncture Site pCO2 pO2 HCO3 ABG pH ABG Total CO2 ABG O2 Saturation ABG Base Excess ABG Hemoglobin ABG Carboxyhemoglobin POC ABG HHb (Measured) ABG Methemoglobin Jake Test A-a O2 Difference Respiratory Index Hgb O2 Saturation Vent Mode Mechanical Rate FiO2 Tidal Volume PEEP Sodium Potassium Chloride Carbon Dioxide Anion Gap BUN Creatinine Est GFR ( Amer) Est GFR (Non-Af Amer) POC Glucose (mg/dL) Random Glucose Lactic Acid Calcium Phosphorus Magnesium Total Bilirubin AST ALT Alkaline Phosphatase Ammonia 65 H Total Creatine Kinase Total Protein Albumin Globulin Albumin/Globulin Ratio Free T4 Thyroxine (T4) Free T3 pg/mL Total T3 Stool Leukocytes, Qual Random Vancomycin IgG 1286.3 Hepatitis A IgM Ab Negative Hep Bs Antigen Negative Hep B Core IgM Ab Negative Hepatitis C Antibody Negative Attending/Attestation - Attestation I have personally seen and examined this patient.: Yes I have fully participated in the care of the patient.: Yes I have reviewed all pertinent clinical information: Yes Notes (Text): 03/27/18 13:56 I have seen and examined patient with GI fellow. Agree with above documentation with the following additions. In brief, this is a 72 year old female with history of hyperthyroidism who presents with complaint of abdominal pain and diarrhea. Her hospital course was complicated by development of sepsis with respiratory distress requiring intubation. GI called for evaluation of elevated LFTs. She is currently seen in critical care unit on vasopressor support and unable to participate in meaningful conversation. Additional information obtained via chart review, discussion with nursing staff and patient's daughter at bedside. Apparently she began having diarrhea with 2- 3 loose bowel movements daily over the past 2 days without presence of rectal bleeding. In addition, she was describing sharp epigastric abdominal pain. There was no reported fever/chills, weight loss. Unknown regarding prior endoscopic evaluation. Hyperthyroidism - acute disease exacerbation, storm Septic shock Transaminitis Abdominal pain, acute cholecystitis Acute renal insufficiency - NPO - Ventilator and vasopressor support as per critical care team - Continue to monitor LFTs, obtain viral hepatitis and autoimmune panel testing - Continue with antibiotic therapy, obtain blood culture results - Follow up surgical recommendations - US imaging reviewed by me showing normal caliber CBD, +cholelithiasis - Currently no indication for GI intervention, will continue to monitor patient clinical course
[2018-03-27] MEDS ORDERED: (Novolin R) Insulin Human Regular 100 units/ml vial SC SCH (11:30)
[2018-03-27] MEDS: (Novolog) Insulin Aspart, Recombinant 100 u/ml 10 ml vial SC SCH ×2 (12:03→17:53)
[2018-03-27 12:11] LABS: INR 3.1
[2018-03-27 12:14] LABS: PROTHROMBIN TIME 34.1 SECONDS (9.7-12.2)
[2018-03-27] MEDS: Vancomycin 1 gm/NS 200 ml 1 GM/200 ML BAG IVPB SCH (12:20)
--- NOTE | 2018-03-27 12:41 | CP.PCM.PN ---
Subjective - Date & Time of Evaluation Date of Evaluation: 03/27/18 Time of Evaluation: 12:37 - Subjective Subjective: Nephrology Consultation: Assessment: critical non-oliguric Acute Kidney Injury (N17.9) likely due to sepsis/shock, contrast Hypokalemia, hypocalcemia active smoker hyperthyroidism abnormal LFT, cholelithiasis and ? cholecystitis, thyroid storm, acute respi failure s/p intubation septic shock, lactic acidosis coagulopathic, thrombocytopenia Rhabdomyolysis, hyperphosphatemia Plan No acute need for renal replacement therapy at this time, MICHELLE improving. BP control with meds as ordered (on vasopressors). Patient not on ACEI/ARB due to MICHELLE. maintain hemodynamics stable, avoid hypotension Monitor Input/Output, daily weights and renal function with basic metabolic panel, CPK and phos d/c bicarb drip and started NS @ 100 ml/hr GI, Endocrine following dose of calcium gluconate 2 gm IVPB supplement lytes as needed Dose meds/antibiotics for improved GFR. Avoid fleets enema/magnesium based laxatives. Avoid nephrotoxins/NSAIDs Glycemic control Further work up/management as per primary team Thanks for allowing me to participate in care of your patient. Will follow patient with you. Please call if any Qs. d/w team and family Dr Sonu Hodge Office: [phone] Chief Complaint; unable HPI: Pt is a 72 F active smoker and recently diagnosed with hyperthyroidism came with loose stool and found to have abnormal LFT, cholelithiasis and ? cholecystitis, thyroid storm, respi failure and intubated, transferred to ICU also with septic shock, lactic acidosis and MICHELLE hence renal consulted no known OTC/herbal meds or NSAIDs had recent iodinated contrast exposure. Noted obvious episodes of low BP. ROS: unable Physical Examination: General Appearance: now in no acute respiratory distress, ill appearing intubated. Vitals reviewed and noted as below Head; Atraumatic, normocephalic ENT: no ulcers no thrush. Tongue is midline/dry. Oropharynx: no rash or ulcers.orally intubated EYES: Pupils are equal, round and reactive to light accommodation. Eye muscles and extraocular movement intact. Sclera is icteric. Neck; supple no lymphadenopathy, no thyromegaly or bruit Lungs: Normal respiratory rate/effort. Breath sounds bilateral equal and clear anteriorly Heart: Normal rate. s1s2 normal. No rub or gallop. Extremities: no edema. No varicose veins Neurological: Patient is not responsive Skin: Warm and dry. Normal turgor. No rash. Palpitation: Normal elasticity for age Abdomen: Abdomen is soft. Bowel sounds +. There is no abdominal tenderness, no guarding/rigidity no organomegaly Psych:unable MSK: no joint tenderness or swelling. Digits and nails normal, no deformity : kidney or bladder not palpable. has johnson Labs/imaging reviewed. Past medical history, past surgical history, family history, social history, allergy reviewed and noted as below Family hx: no hx of CKD. Rest non-contributory CPK 3135 Lactic acid 12 INR 3.1 UA SG 1.057 1 + protein renal imaging: unremarkable Objective - Vital Signs/Intake and Output Vital Signs (last 24 hours): Temp Pulse Resp BP Pulse Ox 99.7 F H 81 16 112/59 L 97 03/27/18 12:00 03/27/18 12:14 03/27/18 12:14 03/27/18 12:14 03/27/18 12:14 Intake and Output: 03/27/18 03/27/18 06:59 18:59 Intake Total 3952.8 1672.7 Output Total 730 Balance 3222.8 1672.7 - Medications Medications: Current Medications Acetaminophen (Tylenol 650mg/20.3ml Solution Ud) 650 mg PO Q4H PRN PRN Reason: Temperature above 100.6 Last Admin: 03/25/18 17:23 Dose: 650 mg Cholestyramine Resin (Prevalite) 4 gm PO Q8H [facility] Last Admin: 03/27/18 09:24 Dose: 4 gm Enoxaparin Sodium (Lovenox) 30 mg SC DAILY [facility] Last Admin: 03/27/18 09:22 Dose: 30 mg Famotidine (Pepcid) 20 mg PO BID [facility] Last Admin: 03/27/18 09:23 Dose: 20 mg Hydrocortisone Sodium Succinate (Solu-Cortef) 50 mg IV Q12H [facility] Norepinephrine Bitartrate 4 mg (/ Dextrose) 254 mls @ 15.24 mls/hr IV .[id number] PRN; Protocol; 4 MCG/MIN PRN Reason: TITRATE PER MD ORDER Last Admin: 03/27/18 12:01 Dose: 9 mcg/min, 34.29 mls/hr Metronidazole (Flagyl) 500 mg in 100 mls @ 100 mls/hr IVPB Q8 [facility] PRN Reason: Protocol Last Admin: 03/27/18 05:11 Dose: 100 mls/hr Vasopressin 40 units/ Sodium (Chloride) 40 mls @ 0.6 mls/hr IV .Q24H [facility]; 0.01 UNITS/MIN PRN Reason: Protocol Last Titration: 03/26/18 20:00 Dose: 0.04 units/min, 2.4 mls/hr Meropenem 500 mg/ Sodium (Chloride) 100 mls @ 100 mls/hr IVPB Q8 N[facility]YDA PRN Reason: Protocol Last Admin: 03/27/18 06:15 Dose: 100 mls/hr Aztreonam 1 gm/ Sodium (Chloride) 100 mls @ 200 mls/hr IVPB Q8H [facility] PRN Reason: Protocol Last Admin: 03/27/18 11:57 Dose: 200 mls/hr Potassium Chloride (Potassium Chloride 20 Meq/100 Ml) 20 meq in 100 mls @ 50 mls/hr IVPB ONCE ONE Stop: 03/27/18 13:59 Last Admin: 03/27/18 11:57 Dose: 50 mls/hr Vancomycin/Sodium Chloride (Vancomycin 1 Gm/Ns 200 Ml) 1 gm in 200 mls @ 166.7 mls/hr IVPB Q24H [facility] PRN Reason: Protocol Stop: 04/01/18 10:01 Last Admin: 03/27/18 12:20 Dose: 166.7 mls/hr Insulin Aspart (Novolog) 0 unit SC Q6H [facility] PRN Reason: Protocol Last Admin: 03/27/18 12:03 Dose: 10 unit Midodrine (Proamatine) 5 mg PO Q8H [facility] Propranolol HCl (Inderal) 10 mg PO DAILY [facility] Last Admin: 03/27/18 09:26 Dose: 10 mg Propylthiouracil (Propylthiouracil) 300 mg PO Q8H [facility] Stop: 03/30/18 12:01 Last Admin: 03/27/18 12:07 Dose: 300 mg - Labs Labs: 03/27/18 06:29 03/27/18 06:31 PT 34.1 SECONDS (9.7-12.2) H* 03/27/18 11:52 INR 3.1 05/17/18 11:52
[2018-03-27] MEDS ORDERED: Sodium Chloride 0.9% 1,000 ML IV SCH (12:45)
[2018-03-27 12:48] LABS: HEPATITIS B SURFACE AG Negative (NEGATIVE)
[2018-03-27 12:53] LABS: HEPATITIS A IGM NEGATIVE (NEGATIVE); HEPATITIS B CORE AB NEGATIVE (NEGATIVE)
[2018-03-27 13:05] LABS: HEPATITIS C ANTIBODY NEGATIVE (NEGATIVE)
--- NOTE | 2018-03-27 13:21 | CP.PCM.PN ---
Subjective - Date & Time of Evaluation Date of Evaluation: 03/27/18 Time of Evaluation: 12:00 - Subjective Subjective: remains intubated. family is at the bedside Objective - Vital Signs/Intake and Output Vital Signs (last 24 hours): Temp Pulse Resp BP Pulse Ox 99.7 F H 81 16 112/59 L 97 03/27/18 12:00 03/27/18 12:14 03/27/18 12:14 03/27/18 12:14 03/27/18 12:14 Intake and Output: 03/27/18 03/27/18 06:59 18:59 Intake Total 3952.8 1672.7 Output Total 730 Balance 3222.8 1672.7 - Medications Medications: Current Medications Acetaminophen (Tylenol 650mg/20.3ml Solution Ud) 650 mg PO Q4H PRN PRN Reason: Temperature above 100.6 Last Admin: 03/25/18 17:23 Dose: 650 mg Cholestyramine Resin (Prevalite) 4 gm PO Q8H [facility] Last Admin: 03/27/18 09:24 Dose: 4 gm Enoxaparin Sodium (Lovenox) 30 mg SC DAILY [facility] Last Admin: 03/27/18 09:22 Dose: 30 mg Famotidine (Pepcid) 20 mg PO BID [facility] Last Admin: 03/27/18 09:23 Dose: 20 mg Hydrocortisone Sodium Succinate (Solu-Cortef) 50 mg IV Q12H [facility] Norepinephrine Bitartrate 4 mg (/ Dextrose) 254 mls @ 15.24 mls/hr IV .[id number] PRN; Protocol; 4 MCG/MIN PRN Reason: TITRATE PER MD ORDER Last Admin: 03/27/18 12:01 Dose: 9 mcg/min, 34.29 mls/hr Metronidazole (Flagyl) 500 mg in 100 mls @ 100 mls/hr IVPB Q8 [facility] PRN Reason: Protocol Last Admin: 03/27/18 05:11 Dose: 100 mls/hr Vasopressin 40 units/ Sodium (Chloride) 40 mls @ 0.6 mls/hr IV .Q24H [facility]; 0.01 UNITS/MIN PRN Reason: Protocol Last Titration: 03/26/18 20:00 Dose: 0.04 units/min, 2.4 mls/hr Meropenem 500 mg/ Sodium (Chloride) 100 mls @ 100 mls/hr IVPB Q8 [facility] PRN Reason: Protocol Last Admin: 03/27/18 06:15 Dose: 100 mls/hr Aztreonam 1 gm/ Sodium (Chloride) 100 mls @ 200 mls/hr IVPB Q8H [facility] PRN Reason: Protocol Last Admin: 03/27/18 11:57 Dose: 200 mls/hr Potassium Chloride (Potassium Chloride 20 Meq/100 Ml) 20 meq in 100 mls @ 50 mls/hr IVPB ONCE ONE Stop: 03/27/18 13:59 Last Admin: 03/27/18 11:57 Dose: 50 mls/hr Vancomycin/Sodium Chloride (Vancomycin 1 Gm/Ns 200 Ml) 1 gm in 200 mls @ 166.7 mls/hr IVPB Q24H [facility] PRN Reason: Protocol Stop: 04/01/18 10:01 Last Admin: 03/27/18 12:20 Dose: 166.7 mls/hr Sodium Chloride (Sodium Chloride 0.9%) 1,000 mls @ 100 mls/hr IV .Q10H [facility] Insulin Aspart (Novolog) 0 unit SC Q6H [facility] PRN Reason: Protocol Last Admin: 03/27/18 12:03 Dose: 10 unit Midodrine (Proamatine) 5 mg PO Q8H [facility] Propranolol HCl (Inderal) 10 mg PO DAILY [facility] Last Admin: 03/27/18 09:26 Dose: 10 mg Propylthiouracil (Propylthiouracil) 300 mg PO Q8H [facility] Stop: 03/30/18 12:01 Last Admin: 03/27/18 12:07 Dose: 300 mg - Labs Labs: 03/27/18 06:29 03/27/18 06:31 PT 34.1 SECONDS (9.7-12.2) H* 03/27/18 11:52 INR 3.1 03/27/18 11:52 - Constitutional Appears: Non-toxic - Head Exam Head Exam: NORMAL INSPECTION - Eye Exam Eye Exam: Normal appearance - ENT Exam ENT Exam: Mucous Membranes Moist - Neck Exam Neck Exam: Full ROM - Respiratory Exam Respiratory Exam: NORMAL BREATHING PATTERN - Cardiovascular Exam Cardiovascular Exam: REGULAR RHYTHM - GI/Abdominal Exam GI & Abdominal Exam: Normal Bowel Sounds - Rectal Exam Rectal Exam: Deferred - Extremities Exam Extremities Exam: absent: Pedal Edema - Back Exam Back Exam: NORMAL INSPECTION - Neurological Exam Neurological Exam: Alert - Psychiatric Exam Psychiatric exam: Normal Affect - Skin Skin Exam: Normal Color Assessment and Plan (1) Cardiomyopathy Assessment & Plan: dilated. misti due to hyperthyroidism. medical therapy. thryoid control. misti will need a Lifevest Status: Acute
[2018-03-27 13:58] LABS: SQUAMOUS EPITHIAL < 1 /hpf (0-5); URINE BACTERIA RARE (<OCC); URINE BILIRUBIN NEGATIVE (NEGATIVE); URINE BLOOD 2+ (NEGATIVE); URINE CLARITY Hazy (Clear); URINE COLOR Yellow (YELLOW); URINE GLUCOSE (UA) 3+ mg/dL (Normal); URINE LEUKOCYTE ESTERASE 2+ Leu/uL (Negative); URINE PROTEIN NEGATIVE (NEGATIVE); URINE UROBILINOGEN NORMAL mg/dL (0.2-1.0)
--- NOTE | 2018-03-27 14:18 | CP.PCM.CON ---
History of Present Illness - History of Present Illness History of Present Illness: 72 yr old woman who has thyroid storm, who 72 year old female with past medical history of recently diagnosed hyperthyroidism 2 weeks ago presented to hospital for intractable diarrhea, N/V and fall. Patient's daughter is at bedside and helps with history. Since yesterday, patient complained of subjective fevers and chills. Yesterday evening patient developed diarrhea with loose watery stools and N/V. She had about 3 episodes of NB/NB vomiting. patient denies having any hematochezia or hemetemesis. Later in the evening, patient was trying to get out of bed when she felt very dizzy and she fell. Denies hitting her or any LOC. Patient was then brought to ED. Patient was diagnosed with hyperthyroidism 2 weeks ago at which point she was started on methimazole and metoprolol. Due to feeling tired and fatigued, her BB was switched to propanolol earlier yesterday by her director general and her methimazole was increased as well from tid to QID. ROS: Currently denies CP, SOB, abd pain, N/V, F/C, LA, dizziness. Patient is still c/o diarrhea and lightheadedness PMHx: stated above Sx: denies Social: current smoker 40-50 years, denies ETOH or drug use Meds: methimazole 10 mg BID and Propanolol 20 mg PO BID PMD: Tamra Marie Endo: Dr. Jess Veloz Cardio: Dr. Wilhelm Past Patient History - Past Social History Smoking Status: Light Smoker < 10 Cigarettes Daily - CARDIAC Hx Cardia Arrhythmia: Yes - PULMONARY Hx Respiratory Disorders: No - NEUROLOGICAL Hx Neurological Disorder: No - HEENT Hx HEENT Problems: No - RENAL Hx Chronic Kidney Disease: No - ENDOCRINE/METABOLIC Hx Hyperthyroidism: Yes (DX March) - HEMATOLOGICAL/ONCOLOGICAL Hx Blood Disorders: No - INTEGUMENTARY Hx Dermatological Problems: No - MUSCULOSKELETAL/RHEUMATOLOGICAL Hx Falls: Yes (felt dizzy at home and fell) - GASTROINTESTINAL Hx Diarrhea: Yes Hx Nausea: Yes - GENITOURINARY/GYNECOLOGICAL Hx Genitourinary Disorders: No - PSYCHIATRIC Hx Psychophysiologic Disorder: No Hx Substance Use: No - SURGICAL HISTORY Hx Surgeries: No - ANESTHESIA Hx Anesthesia: Yes Hx Anesthesia Reactions: No Hx Malignant Hyperthermia: No Has any member of the family had a problem w/ anesthesia?: No Meds Allergies/Adverse Reactions: Allergies Allergy/AdvReac Type Severity Reaction Status Date / Time No Known Allergies Allergy Unverified 03/24/18 20:31 - Medications Medications: Current Medications Acetaminophen (Tylenol 650mg/20.3ml Solution Ud) 650 mg PO Q4H PRN PRN Reason: Temperature above 100.6 Last Admin: 03/25/18 17:23 Dose: 650 mg Cholestyramine Resin (Prevalite) 4 gm PO Q8H [facility] Last Admin: 03/27/18 09:24 Dose: 4 gm Enoxaparin Sodium (Lovenox) 30 mg SC DAILY [facility] Last Admin: 03/27/18 09:22 Dose: 30 mg Famotidine (Pepcid) 20 mg PO BID [facility] Last Admin: 03/27/18 09:23 Dose: 20 mg Hydrocortisone Sodium Succinate (Solu-Cortef) 50 mg IV Q12H [facility] Norepinephrine Bitartrate 4 mg (/ Dextrose) 254 mls @ 15.24 mls/hr IV .[id number] PRN; Protocol; 4 MCG/MIN PRN Reason: TITRATE PER MD ORDER Last Admin: 03/27/18 12:01 Dose: 9 mcg/min, 34.29 mls/hr Metronidazole (Flagyl) 500 mg in 100 mls @ 100 mls/hr IVPB Q8 [facility] PRN Reason: Protocol Last Admin: 03/27/18 13:42 Dose: 100 mls/hr Vasopressin 40 units/ Sodium (Chloride) 40 mls @ 0.6 mls/hr IV .Q24H [facility]; 0.01 UNITS/MIN PRN Reason: Protocol Last Titration: 03/26/18 20:00 Dose: 0.04 units/min, 2.4 mls/hr Meropenem 500 mg/ Sodium (Chloride) 100 mls @ 100 mls/hr IVPB Q8 [facility] PRN Reason: Protocol Last Admin: 03/27/18 13:52 Dose: 100 mls/hr Aztreonam 1 gm/ Sodium (Chloride) 100 mls @ 200 mls/hr IVPB Q8H [facility] PRN Reason: Protocol Last Admin: 03/27/18 11:57 Dose: 200 mls/hr Vancomycin/Sodium Chloride (Vancomycin 1 Gm/Ns 200 Ml) 1 gm in 200 mls @ 166.7 mls/hr IVPB Q24H [facility] PRN Reason: Protocol Stop: 04/01/18 10:01 Last Admin: 03/27/18 12:20 Dose: 166.7 mls/hr Sodium Chloride (Sodium Chloride 0.9%) 1,000 mls @ 100 mls/hr IV .Q10H [facility] Last Admin: 03/27/18 14:06 Dose: 100 mls/hr Levetiracetam 1,000 mg/ (Dextrose) 110 mls @ 420 mls/hr IVPB Q12H [facility] Acyclovir 500 mg/ Sodium (Chloride) 100 mls @ 100 mls/hr IV Q12H [facility] PRN Reason: Protocol Insulin Aspart (Novolog) 0 unit SC Q6H [facility] PRN Reason: Protocol Last Admin: 03/27/18 12:03 Dose: 10 unit Midodrine (Proamatine) 5 mg PO Q8H [facility] Propranolol HCl (Inderal) 10 mg PO DAILY [facility] Last Admin: 03/27/18 09:26 Dose: 10 mg Propylthiouracil (Propylthiouracil) 300 mg PO Q8H [facility] Stop: 03/30/18 12:01 Last Admin: 03/27/18 12:07 Dose: 300 mg Results - Vital Signs Recent Vital Signs: Last Vital Signs Temp 99.7 F H 03/27/18 12:00 Pulse 78 03/27/18 14:00 Resp 18 03/27/18 14:00 BP 111/40 L 03/27/18 14:00 Pulse Ox 97 03/27/18 14:00 - Labs Result Diagrams: 03/27/18 06:29 03/27/18 06:31 Labs: Laboratory Results - last 24 hr 03/25/18 03/26/18 03/26/18 08:15 17:54 23:37 WBC RBC Hgb Hct MCV MCH MCHC RDW Plt Count MPV Neut % (Auto) Lymph % (Auto) [place] % (Auto) Eos % (Auto) Baso % (Auto) Neut # (Auto) Lymph # (Auto) [place] # (Auto) Eos # (Auto) Baso # (Auto) Neutrophils % (Manual) Band Neutrophils % Lymphocytes % (Manual) Reactive Lymphs % Monocytes % (Manual) Platelet Estimate Large Platelets Poikilocytosis (manual Ovalocytes PT INR Puncture Site pCO2 pO2 HCO3 ABG pH ABG Total CO2 ABG O2 Saturation ABG Base Excess ABG Hemoglobin ABG Carboxyhemoglobin POC ABG HHb (Measured) ABG Methemoglobin Jake Test A-a O2 Difference Respiratory Index Hgb O2 Saturation Vent Mode Mechanical Rate FiO2 Tidal Volume PEEP Sodium Potassium Chloride Carbon Dioxide Anion Gap BUN Creatinine Est GFR ( Amer) Est GFR (Non-Af Amer) POC Glucose (mg/dL) 259 H 325 H Random Glucose Lactic Acid Calcium Phosphorus Magnesium Total Bilirubin AST ALT Alkaline Phosphatase Ammonia Total Creatine Kinase Total Protein Albumin Globulin Albumin/Globulin Ratio Free T4 Thyroxine (T4) Free T3 pg/mL Total T3 Urine Color Urine Clarity Urine pH Ur Specific [place] Urine Protein Urine Glucose (UA) Urine Ketones Urine Blood Urine Nitrate Urine Bilirubin Urine Urobilinogen Ur Leukocyte Esterase Urine WBC (Auto) Urine RBC (Auto) Ur Squamous Epith Cells Urine Bacteria Urine Yeast (Budding) Stool Leukocytes, Qual Positive H Random Vancomycin IgG Hepatitis A IgM Ab Hep Bs Antigen Hep B Core IgM Ab Hepatitis C Antibody 03/27/18 03/27/18 03/27/18 05:09 05:38 06:29 WBC 13.9 H RBC 3.93 Hgb 12.5 Hct 37.1 MCV 94.3 MCH 31.9 H MCHC 33.8 RDW 14.3 Plt Count 114 L D MPV 10.0 Neut % (Auto) 86.7 H Lymph % (Auto) 7.5 L [place] % (Auto) 4.7 Eos % (Auto) 0.7 Baso % (Auto) 0.4 Neut # (Auto) 12.0 H Lymph # (Auto) 1.0 [place] # (Auto) 0.6 Eos # (Auto) 0.1 Baso # (Auto) 0.1 Neutrophils % (Manual) 71 Band Neutrophils % 18 H* Lymphocytes % (Manual) 4 L Reactive Lymphs % 1 H Monocytes % (Manual) 6 Platelet Estimate Slightly decreased L Large Platelets Present Poikilocytosis (manual Slight Ovalocytes Slight PT INR Puncture Site Rr pCO2 47 H pO2 107 H HCO3 33.5 H ABG pH 7.49 H ABG Total CO2 37.2 H ABG O2 Saturation 99.3 H ABG Base Excess 11.0 H ABG Hemoglobin 12.0 ABG Carboxyhemoglobin 1.8 H POC ABG HHb (Measured) 0.7 ABG Methemoglobin 1.1 Jkae Test Pos A-a O2 Difference 119.0 Respiratory Index 1.1 Hgb O2 Saturation 96.3 Vent Mode Prvc Mechanical Rate 16 FiO2 40.0 Tidal Volume 400 PEEP 5 Sodium Potassium Chloride Carbon Dioxide Anion Gap BUN Creatinine Est GFR ( Amer) Est GFR (Non-Af Amer) POC Glucose (mg/dL) 457 H* Random Glucose Lactic Acid Calcium Phosphorus Magnesium Total Bilirubin AST ALT Alkaline Phosphatase Ammonia Total Creatine Kinase Total Protein Albumin Globulin Albumin/Globulin Ratio Free T4 Thyroxine (T4) Free T3 pg/mL Total T3 Urine Color Urine Clarity Urine pH Ur Specific [place] Urine Protein Urine Glucose (UA) Urine Ketones Urine Blood Urine Nitrate Urine Bilirubin Urine Urobilinogen Ur Leukocyte Esterase Urine WBC (Auto) Urine RBC (Auto) Ur Squamous Epith Cells Urine Bacteria Urine Yeast (Budding) Stool Leukocytes, Qual Random Vancomycin IgG Hepatitis A IgM Ab Hep Bs Antigen Hep B Core IgM Ab Hepatitis C Antibody 03/27/18 03/27/18 03/27/18 06:31 06:31 06:31 WBC RBC Hgb Hct MCV MCH MCHC RDW Plt Count MPV Neut % (Auto) Lymph % (Auto) [place] % (Auto) Eos % (Auto) Baso % (Auto) Neut # (Auto) Lymph # (Auto) [place] # (Auto) Eos # (Auto) Baso # (Auto) Neutrophils % (Manual) Band Neutrophils % Lymphocytes % (Manual) Reactive Lymphs % Monocytes % (Manual) Platelet Estimate Large Platelets Poikilocytosis (manual Ovalocytes PT INR Puncture Site pCO2 pO2 HCO3 ABG pH ABG Total CO2 ABG O2 Saturation ABG Base Excess ABG Hemoglobin ABG Carboxyhemoglobin POC ABG HHb (Measured) ABG Methemoglobin Jake Test A-a O2 Difference Respiratory Index Hgb O2 Saturation Vent Mode Mechanical Rate FiO2 Tidal Volume PEEP Sodium 137 Potassium 3.1 L Chloride 90 L Carbon Dioxide 39 H Anion Gap 11 BUN 55 H Creatinine 1.3 H Est GFR ( Amer) 49 Est GFR (Non-Af Amer) 40 POC Glucose (mg/dL) Random Glucose 412 H* D Lactic Acid Calcium 6.2 L Phosphorus 4.0 Magnesium 2.0 Total Bilirubin 5.1 H AST 2304 H ALT 668 H D Alkaline Phosphatase 80 Ammonia Total Creatine Kinase 1322 H Total Protein 4.9 L Albumin 2.3 L Globulin 2.7 Albumin/Globulin Ratio 0.8 L Free T4 6.00 H Thyroxine (T4) 10.1 Free T3 pg/mL 13.40 H Total T3 2.80 H Urine Color Urine Clarity Urine pH Ur Specific [place] Urine Protein Urine Glucose (UA) Urine Ketones Urine Blood Urine Nitrate Urine Bilirubin Urine Urobilinogen Ur Leukocyte Esterase Urine WBC (Auto) Urine RBC (Auto) Ur Squamous Epith Cells Urine Bacteria Urine Yeast (Budding) Stool Leukocytes, Qual Random Vancomycin 6.5 IgG Hepatitis A IgM Ab Hep Bs Antigen Hep B Core IgM Ab Hepatitis C Antibody 03/27/18 03/27/18 03/27/18 11:30 11:52 11:52 WBC RBC Hgb Hct MCV MCH MCHC RDW Plt Count MPV Neut % (Auto) Lymph % (Auto) [place] % (Auto) Eos % (Auto) Baso % (Auto) Neut # (Auto) Lymph # (Auto) [place] # (Auto) Eos # (Auto) Baso # (Auto) Neutrophils % (Manual) Band Neutrophils % Lymphocytes % (Manual) Reactive Lymphs % Monocytes % (Manual) Platelet Estimate Large Platelets Poikilocytosis (manual Ovalocytes PT 34.1 H* INR 3.1 Puncture Site pCO2 pO2 HCO3 ABG pH ABG Total CO2 ABG O2 Saturation ABG Base Excess ABG Hemoglobin ABG Carboxyhemoglobin POC ABG HHb (Measured) ABG Methemoglobin Jake Test A-a O2 Difference Respiratory Index Hgb O2 Saturation Vent Mode Mechanical Rate FiO2 Tidal Volume PEEP Sodium Potassium Chloride Carbon Dioxide Anion Gap BUN Creatinine Est GFR ( Amer) Est GFR (Non-Af Amer) POC Glucose (mg/dL) 443 H* Random Glucose Lactic Acid 3.3 H Calcium Phosphorus Magnesium Total Bilirubin AST ALT Alkaline Phosphatase Ammonia Total Creatine Kinase Total Protein Albumin Globulin Albumin/Globulin Ratio Free T4 Thyroxine (T4) Free T3 pg/mL Total T3 Urine Color Urine Clarity Urine pH Ur Specific [place] Urine Protein Urine Glucose (UA) Urine Ketones Urine Blood Urine Nitrate Urine Bilirubin Urine Urobilinogen Ur Leukocyte Esterase Urine WBC (Auto) Urine RBC (Auto) Ur Squamous Epith Cells Urine Bacteria Urine Yeast (Budding) Stool Leukocytes, Qual Random Vancomycin IgG Hepatitis A IgM Ab Hep Bs Antigen Hep B Core IgM Ab Hepatitis C Antibody 03/27/18 03/27/18 03/27/18 11:52 11:52 11:52 WBC RBC Hgb Hct MCV MCH MCHC RDW Plt Count MPV Neut % (Auto) Lymph % (Auto) [place] % (Auto) Eos % (Auto) Baso % (Auto) Neut # (Auto) Lymph # (Auto) [place] # (Auto) Eos # (Auto) Baso # (Auto) Neutrophils % (Manual) Band Neutrophils % Lymphocytes % (Manual) Reactive Lymphs % Monocytes % (Manual) Platelet Estimate Large Platelets Poikilocytosis (manual Ovalocytes PT INR Puncture Site pCO2 pO2 HCO3 ABG pH ABG Total CO2 ABG O2 Saturation ABG Base Excess ABG Hemoglobin ABG Carboxyhemoglobin POC ABG HHb (Measured) ABG Methemoglobin Jake Test A-a O2 Difference Respiratory Index Hgb O2 Saturation Vent Mode Mechanical Rate FiO2 Tidal Volume PEEP Sodium Potassium Chloride Carbon Dioxide Anion Gap BUN Creatinine Est GFR ( Amer) Est GFR (Non-Af Amer) POC Glucose (mg/dL) Random Glucose Lactic Acid Calcium Phosphorus Magnesium Total Bilirubin AST ALT Alkaline Phosphatase Ammonia 65 H Total Creatine Kinase Total Protein Albumin Globulin Albumin/Globulin Ratio Free T4 Thyroxine (T4) Free T3 pg/mL Total T3 Urine Color Urine Clarity Urine pH Ur Specific [place] Urine Protein Urine Glucose (UA) Urine Ketones Urine Blood Urine Nitrate Urine Bilirubin Urine Urobilinogen Ur Leukocyte Esterase Urine WBC (Auto) Urine RBC (Auto) Ur Squamous Epith Cells Urine Bacteria Urine Yeast (Budding) Stool Leukocytes, Qual Random Vancomycin IgG 1286.3 Hepatitis A IgM Ab Negative Hep Bs Antigen Negative Hep B Core IgM Ab Negative Hepatitis C Antibody Negative 03/27/18 13:40 WBC RBC Hgb Hct MCV MCH MCHC RDW Plt Count MPV Neut % (Auto) Lymph % (Auto) [place] % (Auto) Eos % (Auto) Baso % (Auto) Neut # (Auto) Lymph # (Auto) [place] # (Auto) Eos # (Auto) Baso # (Auto) Neutrophils % (Manual) Band Neutrophils % Lymphocytes % (Manual) Reactive Lymphs % Monocytes % (Manual) Platelet Estimate Large Platelets Poikilocytosis (manual Ovalocytes PT INR Puncture Site pCO2 pO2 HCO3 ABG pH ABG Total CO2 ABG O2 Saturation ABG Base Excess ABG Hemoglobin ABG Carboxyhemoglobin POC ABG HHb (Measured) ABG Methemoglobin Jake Test A-a O2 Difference Respiratory Index Hgb O2 Saturation Vent Mode Mechanical Rate FiO2 Tidal Volume PEEP Sodium Potassium Chloride Carbon Dioxide Anion Gap BUN Creatinine Est GFR ( Amer) Est GFR (Non-Af Amer) POC Glucose (mg/dL) Random Glucose Lactic Acid Calcium Phosphorus Magnesium Total Bilirubin AST ALT Alkaline Phosphatase Ammonia Total Creatine Kinase Total Protein Albumin Globulin Albumin/Globulin Ratio Free T4 Thyroxine (T4) Free T3 pg/mL Total T3 Urine Color Yellow Urine Clarity Hazy Urine pH 5.0 Ur Specific [place] 1.009 Urine Protein Negative Urine Glucose (UA) 3+ H Urine Ketones Negative Urine Blood 2+ H Urine Nitrate Negative Urine Bilirubin Negative Urine Urobilinogen Normal Ur Leukocyte Esterase 2+ H Urine WBC (Auto) 44 H Urine RBC (Auto) 28 H Ur Squamous Epith Cells < 1 Urine Bacteria Rare Urine Yeast (Budding) Mod H Stool Leukocytes, Qual Random Vancomycin IgG Hepatitis A IgM Ab Hep Bs Antigen Hep B Core IgM Ab Hepatitis C Antibody Assessment & Plan - Assessment and Plan (Free Text) Assessment: 72 yr old woman who 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 Plan: 1. MRI brain would be preferable , but repeat ct head can be done tomorrow am. 2. CTA head stat to rule out basiar artery thrombosis. 3. start acyclovir IV 4. Start keppra 1000 mg IV now and on 500 mg IV keppra bid 5. EEG tomorrow 6. Medical management as per ICU team Discussed with family and Dr. Jean and Thank you Dr. sherman
[2018-03-27] MEDS ORDERED: Iodixanol 320 MG/ML 100 ML BOTTLE IV ONE (14:35)
[2018-03-27] MEDS ORDERED: Midazolam 50 mg/10 ml 100 MG in Dextrose 5% In Water 80 ML IV PRN (15:00)
[2018-03-27] MEDS ORDERED: Phytonadione 10 mg/ml Inj (Adult) IV STA (15:05)
[2018-03-27] MEDS ORDERED: Phytonadione 10 MG in Sodium Chloride 0.9% 50 ML IV ONE (15:15)
--- NOTE | 2018-03-27 15:22 | CP.CCUPN ---
CCU Subjective - Physician Review Subjective (Free Text): Patient seen and examined at bedside. Patient's chart reviewed with input from daughters. Patient has long history of thyroid disorder and did not seek medical attention. As per daughters, patient had sympotms of hair loss, weight loss for more than 3 years. Patient's clinical symptoms worsen and patient went to an final inspector paper, but Critical Care Time Spent (in minutes): 45 CCU Objective - Vital Signs / Intake & Output Vital Signs (Last 4 hours): Vital Signs Temp Pulse Resp BP Pulse Ox 03/27/18 15:00 83 17 110/41 L 98 03/27/18 14:00 79 23 111/40 L 97 03/27/18 13:14 82 20 97 03/27/18 13:00 76 17 110/45 L 98 03/27/18 12:14 81 16 112/59 L 97 03/27/18 12:01 17 110/60 97 03/27/18 12:00 99.7 F H 79 16 112/59 L 97 Intake and Output (Last 8hrs): Intake & Output 03/27/18 03/27/18 03/27/18 06:59 14:59 22:59 Intake Total 2613.2 2380.4 236.7 Output Total 500 Balance 2113.2 2380.4 236.7 Weight 110 lb Intake: IV 254 254 Intake, IV Amount 1979.2 2106.4 236.7 Left Distal Port Internal 360 287.2 34.3 Jugular Left Medial Port Internal 400 750 100 Jugular Left Proximal Port 1200 1050 100 Internal Jugular left distal port y 19.2 19.2 2.4 Tube Feeding 160 20 Other 220 Output: Urine 500 Urethral (Garcia) 500 Other: # Bowel Movements 1 - Physical Exam Head: Positive for: Atraumatic Pupils: Positive for: PERRL, Sluggish Conjunctiva: Positive for: Normal Mouth: Positive for: Dry Respiratory/Chest: Positive for: Clear to Auscultation Cardiovascular: Positive for: Regular Rate and Rhythm, Normal S1, S2. Negative for: Tachycardic Abdomen: Positive for: Normal Bowel Sounds. Negative for: Distention Neurological: Negative for: GCS=15 (GCS=3T) Skin: Positive for: Warm, Dry Psychiatric: Negative for: Alert, Oriented x 3 - Medications Active Medications: Active Medications Generic Name Dose Route Start Last Admin Trade Name Freq PRN Reason Stop Dose Admin Acetaminophen 650 mg 03/25/18 16:30 03/25/18 17:23 Tylenol 650mg/20.3ml Solution Ud PO 650 mg Q4H PRN Administration Temperature above 100.6 Cholestyramine Resin 4 gm 03/26/18 08:15 03/27/18 09:24 Prevalite PO 4 gm Q8H NEREYDA Administration Famotidine 20 mg 03/25/18 10:00 03/27/18 09:23 Pepcid PO 20 mg BID NEREYDA Administration Hydrocortisone Sodium Succinate 50 mg 03/27/18 22:00 Solu-Cortef IV Q12H NEREYDA Norepinephrine Bitartrate 4 mg 254 mls @ 15.24 mls/hr 03/25/18 17:51 12:01 / Dextrose IV 9 mcg/min .[id number] PRN 34.29 mls/hr TITRATE PER MD ORDER Administration Protocol 4 MCG/MIN Metronidazole 500 mg in 100 mls @ 100 mls/hr 03/26/18 22:00 03/27/18 13:42 Flagyl IVPB 100 mls/hr Q8 NEREYDA Administration Protocol Vasopressin 40 units/ Sodium 40 mls @ 0.6 mls/hr 03/26/18 18:15 03/26/18 20: 00 Chloride IV 0.04 units/min .Q24H NEREYDA 2.4 mls/hr Protocol Titration 0.01 UNITS/MIN Meropenem 500 mg/ Sodium 100 mls @ 100 mls/hr 03/26/18 22:00 03/27/18 13:52 Chloride IVPB 100 mls/hr Q8 NEREYDA Administration Protocol Aztreonam 1 gm/ Sodium 100 mls @ 200 mls/hr 03/26/18 20:30 03/27/18 11:57 Chloride IVPB 200 mls/hr Q8H NEREYDA Administration Protocol Vancomycin/Sodium Chloride 1 gm in 200 mls @ 166.7 mls/hr 03/27/18 10:00 12:20 Vancomycin 1 Gm/Ns 200 Ml IVPB 04/01/18 10:01 166.7 mls/hr Q24H NEREYDA Administration Protocol Sodium Chloride 1,000 mls @ 100 mls/hr 03/27/18 12:45 03/27/18 14:06 Sodium Chloride 0.9% IV 100 mls/hr .Q10H NEREYDA Administration Levetiracetam 1,000 mg/ 110 mls @ 420 mls/hr 03/27/18 15:00 03/27/18 14:43 Dextrose IVPB 420 mls/hr Q12H NEREYDA Administration Acyclovir 500 mg/ Sodium 100 mls @ 100 mls/hr 03/27/18 16:00 Chloride IV Q12H NEREYDA Protocol Midazolam HCl 100 mg/ Dextrose 100 mls @ 0.99 mls/hr 03/27/18 15:00 IV .Q24H PRN TITRATE PER MD ORDER Protocol 0.02 MG/KG/HR Sodium Chloride 1,000 mls @ 75 mls/hr 03/27/18 15:15 Sodium Chloride 0.9% IV .[id number] NEREYDA Phytonadione 10 mg/ Sodium 51 mls @ 100 mls/hr 03/27/18 15:15 Chloride IV 03/27/18 15:45 ONCE ONE Insulin Aspart 0 unit 03/27/18 12:00 03/27/18 12:03 Novolog SC 10 unit Q6H NEREYDA Administration Protocol Lactulose 20 gm 03/27/18 15:18 Enulose PO BID PRN Other Midodrine 5 mg 03/27/18 14:00 03/27/18 14:18 Proamatine PO 5 mg Q8H NEREYDA Administration Propranolol HCl 10 mg 03/26/18 10:00 03/27/18 09:26 Inderal PO 10 mg DAILY NEREYDA Administration Propylthiouracil 300 mg 03/27/18 12:00 03/27/18 12:07 Propylthiouracil PO 03/30/18 12:01 300 mg Q8H NEREYDA Administration - Patient Studies Lab Studies: Microbiology Studies 03/25/18 16:34 Urine Culture - Final Urine,Catheterized Yeast Species 03/25/18 05:57 MRSA Culture (Admit) - Final Nose MRSA NOT DETECTED 03/24/18 20:46 Blood Culture - Preliminary Blood NO GROWTH AFTER 48 HOURS 03/24/18 20:46 Blood Culture - Preliminary Blood NO GROWTH AFTER 48 HOURS 03/25/18 16:00 Blood Culture - Preliminary Blood-Venous NO GROWTH AFTER 24 HOURS 03/25/18 16:30 Blood Culture - Preliminary Blood-Venous NO GROWTH AFTER 24 HOURS Lab Studies 03/27/18 03/27/18 03/27/18 Range/Units 13:40 11:52 11:52 WBC (4.8-10.8) K/uL RBC (3.80-5.20) Mil/uL Hgb (11.0-16.0) g/dL Hct (34.0-47.0) % MCV (81.0-99.0) fL MCH (27.0-31.0) pg MCHC (33.0-37.0) g/dL RDW (11.5-14.5) % Plt Count (130-400) K/uL MPV (7.2-11.7) fL Neut % (Auto) (50.0-75.0) % Lymph % (Auto) (20.0-40.0) % Bee % (Auto) (0.0-10.0) % Eos % (Auto) (0.0-4.0) % Baso % (Auto) (0.0-2.0) % Neut # (Auto) (1.8-7.0) K/uL Lymph # (Auto) (1.0-4.3) K/uL Bee # (Auto) (0.0-0.8) K/uL Eos # (Auto) (0.0-0.7) K/uL Baso # (Auto) (0.0-0.2) K/uL Neutrophils % (Manual) (50-75) % Band Neutrophils % (0-2) % Lymphocytes % (Manual) (20-40) % Reactive Lymphs % (0-0) % Monocytes % (Manual) (0-10) % Platelet Estimate (NORMAL) Large Platelets Poikilocytosis (manual Ovalocytes PT (9.7-12.2) SECONDS INR Puncture Site pCO2 (35-45) mm/Hg pO2 (80-100) mm/Hg HCO3 (21-28) mmol/L ABG pH (7.35-7.45) ABG Total CO2 (22-28) mmol/L ABG O2 Saturation (95-98) % ABG Base Excess (-2.0-3.0) mmol/L ABG Hemoglobin (11.7-17.4) g/dL ABG Carboxyhemoglobin (0.5-1.5) % POC ABG HHb (Measured) (0.0-5.0) % ABG Methemoglobin (0.0-3.0) % Jake Test A-a O2 Difference mm/Hg Respiratory Index Hgb O2 Saturation (95.0-98.0) % Vent Mode Mechanical Rate FiO2 % Tidal Volume PEEP Sodium (132-148) mmol/L Potassium (3.6-5.2) mmol/L Chloride (98-107) mmol/L Carbon Dioxide (22-30) mmol/L Anion Gap (10-20) BUN (7-17) mg/dL Creatinine (0.7-1.2) mg/dL Est GFR ( Amer) Est GFR (Non-Af Amer) POC Glucose (mg/dL) (65-110) mg/dL Random Glucose (65-105) mg/dL Lactic Acid (0.7-2.1) mmol/L Calcium (8.6-10.4) mg/dl Phosphorus (2.5-4.5) mg/dL Magnesium (1.6-2.3) mg/dL Total Bilirubin (0.2-1.3) mg/dL AST (14-36) U/L ALT (9-52) U/L Alkaline Phosphatase (38-126) U/L Ammonia (9-33) umol/L Total Creatine Kinase (30-135) U/L Total Protein (6.3-8.3) g/dL Albumin (3.5-5.0) g/dL Globulin (2.2-3.9) gm/dL Albumin/Globulin Ratio (1.0-2.1) Free T4 (0.78-2.19) ng/dL Thyroxine (T4) (5.5-11.0) ug/dL Free T3 pg/mL (2.77-5.27) pg/mL Total T3 (1.49-2.60) nmol/L Urine Color Yellow (YELLOW) Urine Clarity Hazy (Clear) Urine pH 5.0 (5.0-8.0) Ur Specific May 1.009 (1.003-1.030) Urine Protein Negative (NEGATIVE) mg/dL Urine Glucose (UA) 3+ H (Normal) mg/dL Urine Ketones Negative (NEGATIVE) mg/dL Urine Blood 2+ H (NEGATIVE) Urine Nitrate Negative (NEGATIVE) Urine Bilirubin Negative (NEGATIVE) Urine Urobilinogen Normal (0.2-1.0) mg/dL Ur Leukocyte Esterase 2+ H (Negative) Isabela/uL Urine WBC (Auto) 44 H (0-5) /hpf Urine RBC (Auto) 28 H (0-3) /hpf Ur Squamous Epith Cells < 1 (0-5) /hpf Urine Bacteria Rare (<OCC) Urine Yeast (Budding) Mod H (NEGATIVE) /hpf Stool Leukocytes, Qual (NEGATIVE) Random Vancomycin ug/mL IgG 1286.3 (700.0-1600.0) mg/dL Hepatitis A IgM Ab Negative (NEGATIVE) Hep Bs Antigen Negative (NEGATIVE) Hep B Core IgM Ab Negative (NEGATIVE) Hepatitis C Antibody Negative (NEGATIVE) 03/27/18 03/27/18 03/27/18 Range/Units 11:52 11:52 11:52 WBC (4.8-10.8) K/uL RBC (3.80-5.20) Mil/uL Hgb (11.0-16.0) g/dL Hct (34.0-47.0) % MCV (81.0-99.0) fL MCH (27.0-31.0) pg MCHC (33.0-37.0) g/dL RDW (11.5-14.5) % Plt Count (130-400) K/uL MPV (7.2-11.7) fL Neut % (Auto) (50.0-75.0) % Lymph % (Auto) (20.0-40.0) % Bee % (Auto) (0.0-10.0) % Eos % (Auto) (0.0-4.0) % Baso % (Auto) (0.0-2.0) % Neut # (Auto) (1.8-7.0) K/uL Lymph # (Auto) (1.0-4.3) K/uL Bee # (Auto) (0.0-0.8) K/uL Eos # (Auto) (0.0-0.7) K/uL Baso # (Auto) (0.0-0.2) K/uL Neutrophils % (Manual) (50-75) % Band Neutrophils % (0-2) % Lymphocytes % (Manual) (20-40) % Reactive Lymphs % (0-0) % Monocytes % (Manual) (0-10) % Platelet Estimate (NORMAL) Large Platelets Poikilocytosis (manual Ovalocytes PT 34.1 H* (9.7-12.2) SECONDS INR 3.1 Puncture Site pCO2 (35-45) mm/Hg pO2 (80-100) mm/Hg HCO3 (21-28) mmol/L ABG pH (7.35-7.45) ABG Total CO2 (22-28) mmol/L ABG O2 Saturation (95-98) % ABG Base Excess (-2.0-3.0) mmol/L ABG Hemoglobin (11.7-17.4) g/dL ABG Carboxyhemoglobin (0.5-1.5) % POC ABG HHb (Measured) (0.0-5.0) % ABG Methemoglobin (0.0-3.0) % Jake Test A-a O2 Difference mm/Hg Respiratory Index Hgb O2 Saturation (95.0-98.0) % Vent Mode Mechanical Rate FiO2 % Tidal Volume PEEP Sodium (132-148) mmol/L Potassium (3.6-5.2) mmol/L Chloride (98-107) mmol/L Carbon Dioxide (22-30) mmol/L Anion Gap (10-20) BUN (7-17) mg/dL Creatinine (0.7-1.2) mg/dL Est GFR ( Amer) Est GFR (Non-Af Amer) POC Glucose (mg/dL) (65-110) mg/dL Random Glucose (65-105) mg/dL Lactic Acid 3.3 H (0.7-2.1) mmol/L Calcium (8.6-10.4) mg/dl Phosphorus (2.5-4.5) mg/dL Magnesium (1.6-2.3) mg/dL Total Bilirubin (0.2-1.3) mg/dL AST (14-36) U/L ALT (9-52) U/L Alkaline Phosphatase (38-126) U/L Ammonia 65 H (9-33) umol/L Total Creatine Kinase (30-135) U/L Total Protein (6.3-8.3) g/dL Albumin (3.5-5.0) g/dL Globulin (2.2-3.9) gm/dL Albumin/Globulin Ratio (1.0-2.1) Free T4 (0.78-2.19) ng/dL Thyroxine (T4) (5.5-11.0) ug/dL Free T3 pg/mL (2.77-5.27) pg/mL Total T3 (1.49-2.60) nmol/L Urine Color (YELLOW) Urine Clarity (Clear) Urine pH (5.0-8.0) Ur Specific May (1.003-1.030) Urine Protein (NEGATIVE) mg/dL Urine Glucose (UA) (Normal) mg/dL Urine Ketones (NEGATIVE) mg/dL Urine Blood (NEGATIVE) Urine Nitrate (NEGATIVE) Urine Bilirubin (NEGATIVE) Urine Urobilinogen (0.2-1.0) mg/dL Ur Leukocyte Esterase (Negative) Isabela/uL Urine WBC (Auto) (0-5) /hpf Urine RBC (Auto) (0-3) /hpf Ur Squamous Epith Cells (0-5) /hpf Urine Bacteria (<OCC) Urine Yeast (Budding) (NEGATIVE) /hpf Stool Leukocytes, Qual (NEGATIVE) Random Vancomycin ug/mL IgG (700.0-1600.0) mg/dL Hepatitis A IgM Ab (NEGATIVE) Hep Bs Antigen (NEGATIVE) Hep B Core IgM Ab (NEGATIVE) Hepatitis C Antibody (NEGATIVE) 03/27/18 03/27/18 03/27/18 Range/Units 11:30 06:31 06:31 WBC (4.8-10.8) K/uL RBC (3.80-5.20) Mil/uL Hgb (11.0-16.0) g/dL Hct (34.0-47.0) % MCV (81.0-99.0) fL MCH (27.0-31.0) pg MCHC (33.0-37.0) g/dL RDW (11.5-14.5) % Plt Count (130-400) K/uL MPV (7.2-11.7) fL Neut % (Auto) (50.0-75.0) % Lymph % (Auto) (20.0-40.0) % Bee % (Auto) (0.0-10.0) % Eos % (Auto) (0.0-4.0) % Baso % (Auto) (0.0-2.0) % Neut # (Auto) (1.8-7.0) K/uL Lymph # (Auto) (1.0-4.3) K/uL Bee # (Auto) (0.0-0.8) K/uL Eos # (Auto) (0.0-0.7) K/uL Baso # (Auto) (0.0-0.2) K/uL Neutrophils % (Manual) (50-75) % Band Neutrophils % (0-2) % Lymphocytes % (Manual) (20-40) % Reactive Lymphs % (0-0) % Monocytes % (Manual) (0-10) % Platelet Estimate (NORMAL) Large Platelets Poikilocytosis (manual Ovalocytes PT (9.7-12.2) SECONDS INR Puncture Site pCO2 (35-45) mm/Hg pO2 (80-100) mm/Hg HCO3 (21-28) mmol/L ABG pH (7.35-7.45) ABG Total CO2 (22-28) mmol/L ABG O2 Saturation (95-98) % ABG Base Excess (-2.0-3.0) mmol/L ABG Hemoglobin (11.7-17.4) g/dL ABG Carboxyhemoglobin (0.5-1.5) % POC ABG HHb (Measured) (0.0-5.0) % ABG Methemoglobin (0.0-3.0) % Jake Test A-a O2 Difference mm/Hg Respiratory Index Hgb O2 Saturation (95.0-98.0) % Vent Mode Mechanical Rate FiO2 % Tidal Volume PEEP Sodium (132-148) mmol/L Potassium (3.6-5.2) mmol/L Chloride (98-107) mmol/L Carbon Dioxide (22-30) mmol/L Anion Gap (10-20) BUN (7-17) mg/dL Creatinine (0.7-1.2) mg/dL Est GFR ( Amer) Est GFR (Non-Af Amer) POC Glucose (mg/dL) 443 H* (65-110) mg/dL Random Glucose (65-105) mg/dL Lactic Acid (0.7-2.1) mmol/L Calcium (8.6-10.4) mg/dl Phosphorus (2.5-4.5) mg/dL Magnesium (1.6-2.3) mg/dL Total Bilirubin (0.2-1.3) mg/dL AST (14-36) U/L ALT (9-52) U/L Alkaline Phosphatase (38-126) U/L Ammonia (9-33) umol/L Total Creatine Kinase (30-135) U/L Total Protein (6.3-8.3) g/dL Albumin (3.5-5.0) g/dL Globulin (2.2-3.9) gm/dL Albumin/Globulin Ratio (1.0-2.1) Free T4 6.00 H (0.78-2.19) ng/dL Thyroxine (T4) (5.5-11.0) ug/dL Free T3 pg/mL (2.77-5.27) pg/mL Total T3 (1.49-2.60) nmol/L Urine Color (YELLOW) Urine Clarity (Clear) Urine pH (5.0-8.0) Ur Specific May (1.003-1.030) Urine Protein (NEGATIVE) mg/dL Urine Glucose (UA) (Normal) mg/dL Urine Ketones (NEGATIVE) mg/dL Urine Blood (NEGATIVE) Urine Nitrate (NEGATIVE) Urine Bilirubin (NEGATIVE) Urine Urobilinogen (0.2-1.0) mg/dL Ur Leukocyte Esterase (Negative) Isabela/uL Urine WBC (Auto) (0-5) /hpf Urine RBC (Auto) (0-3) /hpf Ur Squamous Epith Cells (0-5) /hpf Urine Bacteria (<OCC) Urine Yeast (Budding) (NEGATIVE) /hpf Stool Leukocytes, Qual (NEGATIVE) Random Vancomycin 6.5 ug/mL IgG (700.0-1600.0) mg/dL Hepatitis A IgM Ab (NEGATIVE) Hep Bs Antigen (NEGATIVE) Hep B Core IgM Ab (NEGATIVE) Hepatitis C Antibody (NEGATIVE) 03/27/18 03/27/18 03/27/18 Range/Units 06:31 06:29 05:38 WBC 13.9 H (4.8-10.8) K/uL RBC 3.93 (3.80-5.20) Mil/uL Hgb 12.5 (11.0-16.0) g/dL Hct 37.1 (34.0-47.0) % MCV 94.3 (81.0-99.0) fL MCH 31.9 H (27.0-31.0) pg MCHC 33.8 (33.0-37.0) g/dL RDW 14.3 (11.5-14.5) % Plt Count 114 L D (130-400) K/uL MPV 10.0 (7.2-11.7) fL Neut % (Auto) 86.7 H (50.0-75.0) % Lymph % (Auto) 7.5 L (20.0-40.0) % Bee % (Auto) 4.7 (0.0-10.0) % Eos % (Auto) 0.7 (0.0-4.0) % Baso % (Auto) 0.4 (0.0-2.0) % Neut # (Auto) 12.0 H (1.8-7.0) K/uL Lymph # (Auto) 1.0 (1.0-4.3) K/uL Bee # (Auto) 0.6 (0.0-0.8) K/uL Eos # (Auto) 0.1 (0.0-0.7) K/uL Baso # (Auto) 0.1 (0.0-0.2) K/uL Neutrophils % (Manual) 71 (50-75) % Band Neutrophils % 18 H* (0-2) % Lymphocytes % (Manual) 4 L (20-40) % Reactive Lymphs % 1 H (0-0) % Monocytes % (Manual) 6 (0-10) % Platelet Estimate Slightly decreased L (NORMAL) Large Platelets Present Poikilocytosis (manual Slight Ovalocytes Slight PT (9.7-12.2) SECONDS INR Puncture Site pCO2 (35-45) mm/Hg pO2 (80-100) mm/Hg HCO3 (21-28) mmol/L ABG pH (7.35-7.45) ABG Total CO2 (22-28) mmol/L ABG O2 Saturation (95-98) % ABG Base Excess (-2.0-3.0) mmol/L ABG Hemoglobin (11.7-17.4) g/dL ABG Carboxyhemoglobin (0.5-1.5) % POC ABG HHb (Measured) (0.0-5.0) % ABG Methemoglobin (0.0-3.0) % Jake Test A-a O2 Difference mm/Hg Respiratory Index Hgb O2 Saturation (95.0-98.0) % Vent Mode Mechanical Rate FiO2 % Tidal Volume PEEP Sodium 137 (132-148) mmol/L Potassium 3.1 L (3.6-5.2) mmol/L Chloride 90 L (98-107) mmol/L Carbon Dioxide 39 H (22-30) mmol/L Anion Gap 11 (10-20) BUN 55 H (7-17) mg/dL Creatinine 1.3 H (0.7-1.2) mg/dL Est GFR ( Amer) 49 Est GFR (Non-Af Amer) 40 POC Glucose (mg/dL) 457 H* (65-110) mg/dL Random Glucose 412 H* D (65-105) mg/dL Lactic Acid (0.7-2.1) mmol/L Calcium 6.2 L (8.6-10.4) mg/dl Phosphorus 4.0 (2.5-4.5) mg/dL Magnesium 2.0 (1.6-2.3) mg/dL Total Bilirubin 5.1 H (0.2-1.3) mg/dL AST 2304 H (14-36) U/L ALT 668 H D (9-52) U/L Alkaline Phosphatase 80 (38-126) U/L Ammonia (9-33) umol/L Total Creatine Kinase 1322 H (30-135) U/L Total Protein 4.9 L (6.3-8.3) g/dL Albumin 2.3 L (3.5-5.0) g/dL Globulin 2.7 (2.2-3.9) gm/dL Albumin/Globulin Ratio 0.8 L (1.0-2.1) Free T4 (0.78-2.19) ng/dL Thyroxine (T4) 10.1 (5.5-11.0) ug/dL Free T3 pg/mL 13.40 H (2.77-5.27) pg/mL Total T3 2.80 H (1.49-2.60) nmol/L Urine Color (YELLOW) Urine Clarity (Clear) Urine pH (5.0-8.0) Ur Specific May (1.003-1.030) Urine Protein (NEGATIVE) mg/dL Urine Glucose (UA) (Normal) mg/dL Urine Ketones (NEGATIVE) mg/dL Urine Blood (NEGATIVE) Urine Nitrate (NEGATIVE) Urine Bilirubin (NEGATIVE) Urine Urobilinogen (0.2-1.0) mg/dL Ur Leukocyte Esterase (Negative) Isabela/uL Urine WBC (Auto) (0-5) /hpf Urine RBC (Auto) (0-3) /hpf Ur Squamous Epith Cells (0-5) /hpf Urine Bacteria (<OCC) Urine Yeast (Budding) (NEGATIVE) /hpf Stool Leukocytes, Qual (NEGATIVE) Random Vancomycin ug/mL IgG (700.0-1600.0) mg/dL Hepatitis A IgM Ab (NEGATIVE) Hep Bs Antigen (NEGATIVE) Hep B Core IgM Ab (NEGATIVE) Hepatitis C Antibody (NEGATIVE) 03/27/18 03/26/18 03/26/18 Range/Units 05:09 23:37 17:54 WBC (4.8-10.8) K/uL RBC (3.80-5.20) Mil/uL Hgb (11.0-16.0) g/dL Hct (34.0-47.0) % MCV (81.0-99.0) fL MCH (27.0-31.0) pg MCHC (33.0-37.0) g/dL RDW (11.5-14.5) % Plt Count (130-400) K/uL MPV (7.2-11.7) fL Neut % (Auto) (50.0-75.0) % Lymph % (Auto) (20.0-40.0) % Bee % (Auto) (0.0-10.0) % Eos % (Auto) (0.0-4.0) % Baso % (Auto) (0.0-2.0) % Neut # (Auto) (1.8-7.0) K/uL Lymph # (Auto) (1.0-4.3) K/uL Bee # (Auto) (0.0-0.8) K/uL Eos # (Auto) (0.0-0.7) K/uL Baso # (Auto) (0.0-0.2) K/uL Neutrophils % (Manual) (50-75) % Band Neutrophils % (0-2) % Lymphocytes % (Manual) (20-40) % Reactive Lymphs % (0-0) % Monocytes % (Manual) (0-10) % Platelet Estimate (NORMAL) Large Platelets Poikilocytosis (manual Ovalocytes PT (9.7-12.2) SECONDS INR Puncture Site Rr pCO2 47 H (35-45) mm/Hg pO2 107 H (80-100) mm/Hg HCO3 33.5 H (21-28) mmol/L ABG pH 7.49 H (7.35-7.45) ABG Total CO2 37.2 H (22-28) mmol/L ABG O2 Saturation 99.3 H (95-98) % ABG Base Excess 11.0 H (-2.0-3.0) mmol/L ABG Hemoglobin 12.0 (11.7-17.4) g/dL ABG Carboxyhemoglobin 1.8 H (0.5-1.5) % POC ABG HHb (Measured) 0.7 (0.0-5.0) % ABG Methemoglobin 1.1 (0.0-3.0) % Jake Test Pos A-a O2 Difference 119.0 mm/Hg Respiratory Index 1.1 Hgb O2 Saturation 96.3 (95.0-98.0) % Vent Mode Prvc Mechanical Rate 16 FiO2 40.0 % Tidal Volume 400 PEEP 5 Sodium (132-148) mmol/L Potassium (3.6-5.2) mmol/L Chloride (98-107) mmol/L Carbon Dioxide (22-30) mmol/L Anion Gap (10-20) BUN (7-17) mg/dL Creatinine (0.7-1.2) mg/dL Est GFR ( Amer) Est GFR (Non-Af Amer) POC Glucose (mg/dL) 325 H 259 H (65-110) mg/dL Random Glucose (65-105) mg/dL Lactic Acid (0.7-2.1) mmol/L Calcium (8.6-10.4) mg/dl Phosphorus (2.5-4.5) mg/dL Magnesium (1.6-2.3) mg/dL Total Bilirubin (0.2-1.3) mg/dL AST (14-36) U/L ALT (9-52) U/L Alkaline Phosphatase (38-126) U/L Ammonia (9-33) umol/L Total Creatine Kinase (30-135) U/L Total Protein (6.3-8.3) g/dL Albumin (3.5-5.0) g/dL Globulin (2.2-3.9) gm/dL Albumin/Globulin Ratio (1.0-2.1) Free T4 (0.78-2.19) ng/dL Thyroxine (T4) (5.5-11.0) ug/dL Free T3 pg/mL (2.77-5.27) pg/mL Total T3 (1.49-2.60) nmol/L Urine Color (YELLOW) Urine Clarity (Clear) Urine pH (5.0-8.0) Ur Specific May (1.003-1.030) Urine Protein (NEGATIVE) mg/dL Urine Glucose (UA) (Normal) mg/dL Urine Ketones (NEGATIVE) mg/dL Urine Blood (NEGATIVE) Urine Nitrate (NEGATIVE) Urine Bilirubin (NEGATIVE) Urine Urobilinogen (0.2-1.0) mg/dL Ur Leukocyte Esterase (Negative) Isabela/uL Urine WBC (Auto) (0-5) /hpf Urine RBC (Auto) (0-3) /hpf Ur Squamous Epith Cells (0-5) /hpf Urine Bacteria (<OCC) Urine Yeast (Budding) (NEGATIVE) /hpf Stool Leukocytes, Qual (NEGATIVE) Random Vancomycin ug/mL IgG (700.0-1600.0) mg/dL Hepatitis A IgM Ab (NEGATIVE) Hep Bs Antigen (NEGATIVE) Hep B Core IgM Ab (NEGATIVE) Hepatitis C Antibody (NEGATIVE) 03/25/18 Range/Units 08:15 WBC (4.8-10.8) K/uL RBC (3.80-5.20) Mil/uL Hgb (11.0-16.0) g/dL Hct (34.0-47.0) % MCV (81.0-99.0) fL MCH (27.0-31.0) pg MCHC (33.0-37.0) g/dL RDW (11.5-14.5) % Plt Count (130-400) K/uL MPV (7.2-11.7) fL Neut % (Auto) (50.0-75.0) % Lymph % (Auto) (20.0-40.0) % Bee % (Auto) (0.0-10.0) % Eos % (Auto) (0.0-4.0) % Baso % (Auto) (0.0-2.0) % Neut # (Auto) (1.8-7.0) K/uL Lymph # (Auto) (1.0-4.3) K/uL Bee # (Auto) (0.0-0.8) K/uL Eos # (Auto) (0.0-0.7) K/uL Baso # (Auto) (0.0-0.2) K/uL Neutrophils % (Manual) (50-75) % Band Neutrophils % (0-2) % Lymphocytes % (Manual) (20-40) % Reactive Lymphs % (0-0) % Monocytes % (Manual) (0-10) % Platelet Estimate (NORMAL) Large Platelets Poikilocytosis (manual Ovalocytes PT (9.7-12.2) SECONDS INR Puncture Site pCO2 (35-45) mm/Hg pO2 (80-100) mm/Hg HCO3 (21-28) mmol/L ABG pH (7.35-7.45) ABG Total CO2 (22-28) mmol/L ABG O2 Saturation (95-98) % ABG Base Excess (-2.0-3.0) mmol/L ABG Hemoglobin (11.7-17.4) g/dL ABG Carboxyhemoglobin (0.5-1.5) % POC ABG HHb (Measured) (0.0-5.0) % ABG Methemoglobin (0.0-3.0) % Jake Test A-a O2 Difference mm/Hg Respiratory Index Hgb O2 Saturation (95.0-98.0) % Vent Mode Mechanical Rate FiO2 % Tidal Volume PEEP Sodium (132-148) mmol/L Potassium (3.6-5.2) mmol/L Chloride (98-107) mmol/L Carbon Dioxide (22-30) mmol/L Anion Gap (10-20) BUN (7-17) mg/dL Creatinine (0.7-1.2) mg/dL Est GFR ( Amer) Est GFR (Non-Af Amer) POC Glucose (mg/dL) (65-110) mg/dL Random Glucose (65-105) mg/dL Lactic Acid (0.7-2.1) mmol/L Calcium (8.6-10.4) mg/dl Phosphorus (2.5-4.5) mg/dL Magnesium (1.6-2.3) mg/dL Total Bilirubin (0.2-1.3) mg/dL AST (14-36) U/L ALT (9-52) U/L Alkaline Phosphatase (38-126) U/L Ammonia (9-33) umol/L Total Creatine Kinase (30-135) U/L Total Protein (6.3-8.3) g/dL Albumin (3.5-5.0) g/dL Globulin (2.2-3.9) gm/dL Albumin/Globulin Ratio (1.0-2.1) Free T4 (0.78-2.19) ng/dL Thyroxine (T4) (5.5-11.0) ug/dL Free T3 pg/mL (2.77-5.27) pg/mL Total T3 (1.49-2.60) nmol/L Urine Color (YELLOW) Urine Clarity (Clear) Urine pH (5.0-8.0) Ur Specific May (1.003-1.030) Urine Protein (NEGATIVE) mg/dL Urine Glucose (UA) (Normal) mg/dL Urine Ketones (NEGATIVE) mg/dL Urine Blood (NEGATIVE) Urine Nitrate (NEGATIVE) Urine Bilirubin (NEGATIVE) Urine Urobilinogen (0.2-1.0) mg/dL Ur Leukocyte Esterase (Negative) Isabela/uL Urine WBC (Auto) (0-5) /hpf Urine RBC (Auto) (0-3) /hpf Ur Squamous Epith Cells (0-5) /hpf Urine Bacteria (<OCC) Urine Yeast (Budding) (NEGATIVE) /hpf Stool Leukocytes, Qual Positive H (NEGATIVE) Random Vancomycin ug/mL IgG (700.0-1600.0) mg/dL Hepatitis A IgM Ab (NEGATIVE) Hep Bs Antigen (NEGATIVE) Hep B Core IgM Ab (NEGATIVE) Hepatitis C Antibody (NEGATIVE) Laboratory Results - last 24 hr 03/25/18 03/26/18 03/26/18 08:15 17:54 23:37 WBC RBC Hgb Hct MCV MCH MCHC RDW Plt Count MPV Neut % (Auto) Lymph % (Auto) Bee % (Auto) Eos % (Auto) Baso % (Auto) Neut # (Auto) Lymph # (Auto) Bee # (Auto) Eos # (Auto) Baso # (Auto) Neutrophils % (Manual) Band Neutrophils % Lymphocytes % (Manual) Reactive Lymphs % Monocytes % (Manual) Platelet Estimate Large Platelets Poikilocytosis (manual Ovalocytes PT INR Puncture Site pCO2 pO2 HCO3 ABG pH ABG Total CO2 ABG O2 Saturation ABG Base Excess ABG Hemoglobin ABG Carboxyhemoglobin POC ABG HHb (Measured) ABG Methemoglobin Jake Test A-a O2 Difference Respiratory Index Hgb O2 Saturation Vent Mode Mechanical Rate FiO2 Tidal Volume PEEP Sodium Potassium Chloride Carbon Dioxide Anion Gap BUN Creatinine Est GFR ( Amer) Est GFR (Non-Af Amer) POC Glucose (mg/dL) 259 H 325 H Random Glucose Lactic Acid Calcium Phosphorus Magnesium Total Bilirubin AST ALT Alkaline Phosphatase Ammonia Total Creatine Kinase Total Protein Albumin Globulin Albumin/Globulin Ratio Free T4 Thyroxine (T4) Free T3 pg/mL Total T3 Urine Color Urine Clarity Urine pH Ur Specific May Urine Protein Urine Glucose (UA) Urine Ketones Urine Blood Urine Nitrate Urine Bilirubin Urine Urobilinogen Ur Leukocyte Esterase Urine WBC (Auto) Urine RBC (Auto) Ur Squamous Epith Cells Urine Bacteria Urine Yeast (Budding) Stool Leukocytes, Qual Positive H Random Vancomycin IgG Hepatitis A IgM Ab Hep Bs Antigen Hep B Core IgM Ab Hepatitis C Antibody 03/27/18 03/27/18 03/27/18 05:09 05:38 06:29 WBC 13.9 H RBC 3.93 Hgb 12.5 Hct 37.1 MCV 94.3 MCH 31.9 H MCHC 33.8 RDW 14.3 Plt Count 114 L D MPV 10.0 Neut % (Auto) 86.7 H Lymph % (Auto) 7.5 L Bee % (Auto) 4.7 Eos % (Auto) 0.7 Baso % (Auto) 0.4 Neut # (Auto) 12.0 H Lymph # (Auto) 1.0 Bee # (Auto) 0.6 Eos # (Auto) 0.1 Baso # (Auto) 0.1 Neutrophils % (Manual) 71 Band Neutrophils % 18 H* Lymphocytes % (Manual) 4 L Reactive Lymphs % 1 H Monocytes % (Manual) 6 Platelet Estimate Slightly decreased L Large Platelets Present Poikilocytosis (manual Slight Ovalocytes Slight PT INR Puncture Site Rr pCO2 47 H pO2 107 H HCO3 33.5 H ABG pH 7.49 H ABG Total CO2 37.2 H ABG O2 Saturation 99.3 H ABG Base Excess 11.0 H ABG Hemoglobin 12.0 ABG Carboxyhemoglobin 1.8 H POC ABG HHb (Measured) 0.7 ABG Methemoglobin 1.1 Jake Test Pos A-a O2 Difference 119.0 Respiratory Index 1.1 Hgb O2 Saturation 96.3 Vent Mode Prvc Mechanical Rate 16 FiO2 40.0 Tidal Volume 400 PEEP 5 Sodium Potassium Chloride Carbon Dioxide Anion Gap BUN Creatinine Est GFR ( Amer) Est GFR (Non-Af Amer) POC Glucose (mg/dL) 457 H* Random Glucose Lactic Acid Calcium Phosphorus Magnesium Total Bilirubin AST ALT Alkaline Phosphatase Ammonia Total Creatine Kinase Total Protein Albumin Globulin Albumin/Globulin Ratio Free T4 Thyroxine (T4) Free T3 pg/mL Total T3 Urine Color Urine Clarity Urine pH Ur Specific May Urine Protein Urine Glucose (UA) Urine Ketones Urine Blood Urine Nitrate Urine Bilirubin Urine Urobilinogen Ur Leukocyte Esterase Urine WBC (Auto) Urine RBC (Auto) Ur Squamous Epith Cells Urine Bacteria Urine Yeast (Budding) Stool Leukocytes, Qual Random Vancomycin IgG Hepatitis A IgM Ab Hep Bs Antigen Hep B Core IgM Ab Hepatitis C Antibody 03/27/18 03/27/18 03/27/18 06:31 06:31 06:31 WBC RBC Hgb Hct MCV MCH MCHC RDW Plt Count MPV Neut % (Auto) Lymph % (Auto) Bee % (Auto) Eos % (Auto) Baso % (Auto) Neut # (Auto) Lymph # (Auto) Bee # (Auto) Eos # (Auto) Baso # (Auto) Neutrophils % (Manual) Band Neutrophils % Lymphocytes % (Manual) Reactive Lymphs % Monocytes % (Manual) Platelet Estimate Large Platelets Poikilocytosis (manual Ovalocytes PT INR Puncture Site pCO2 pO2 HCO3 ABG pH ABG Total CO2 ABG O2 Saturation ABG Base Excess ABG Hemoglobin ABG Carboxyhemoglobin POC ABG HHb (Measured) ABG Methemoglobin Jake Test A-a O2 Difference Respiratory Index Hgb O2 Saturation Vent Mode Mechanical Rate FiO2 Tidal Volume PEEP Sodium 137 Potassium 3.1 L Chloride 90 L Carbon Dioxide 39 H Anion Gap 11 BUN 55 H Creatinine 1.3 H Est GFR ( Amer) 49 Est GFR (Non-Af Amer) 40 POC Glucose (mg/dL) Random Glucose 412 H* D Lactic Acid Calcium 6.2 L Phosphorus 4.0 Magnesium 2.0 Total Bilirubin 5.1 H AST 2304 H ALT 668 H D Alkaline Phosphatase 80 Ammonia Total Creatine Kinase 1322 H Total Protein 4.9 L Albumin 2.3 L Globulin 2.7 Albumin/Globulin Ratio 0.8 L Free T4 6.00 H Thyroxine (T4) 10.1 Free T3 pg/mL 13.40 H Total T3 2.80 H Urine Color Urine Clarity Urine pH Ur Specific May Urine Protein Urine Glucose (UA) Urine Ketones Urine Blood Urine Nitrate Urine Bilirubin Urine Urobilinogen Ur Leukocyte Esterase Urine WBC (Auto) Urine RBC (Auto) Ur Squamous Epith Cells Urine Bacteria Urine Yeast (Budding) Stool Leukocytes, Qual Random Vancomycin 6.5 IgG Hepatitis A IgM Ab Hep Bs Antigen Hep B Core IgM Ab Hepatitis C Antibody 03/27/18 03/27/18 03/27/18 11:30 11:52 11:52 WBC RBC Hgb Hct MCV MCH MCHC RDW Plt Count MPV Neut % (Auto) Lymph % (Auto) Bee % (Auto) Eos % (Auto) Baso % (Auto) Neut # (Auto) Lymph # (Auto) Bee # (Auto) Eos # (Auto) Baso # (Auto) Neutrophils % (Manual) Band Neutrophils % Lymphocytes % (Manual) Reactive Lymphs % Monocytes % (Manual) Platelet Estimate Large Platelets Poikilocytosis (manual Ovalocytes PT 34.1 H* INR 3.1 Puncture Site pCO2 pO2 HCO3 ABG pH ABG Total CO2 ABG O2 Saturation ABG Base Excess ABG Hemoglobin ABG Carboxyhemoglobin POC ABG HHb (Measured) ABG Methemoglobin Jake Test A-a O2 Difference Respiratory Index Hgb O2 Saturation Vent Mode Mechanical Rate FiO2 Tidal Volume PEEP Sodium Potassium Chloride Carbon Dioxide Anion Gap BUN Creatinine Est GFR ( Amer) Est GFR (Non-Af Amer) POC Glucose (mg/dL) 443 H* Random Glucose Lactic Acid 3.3 H Calcium Phosphorus Magnesium Total Bilirubin AST ALT Alkaline Phosphatase Ammonia Total Creatine Kinase Total Protein Albumin Globulin Albumin/Globulin Ratio Free T4 Thyroxine (T4) Free T3 pg/mL Total T3 Urine Color Urine Clarity Urine pH Ur Specific May Urine Protein Urine Glucose (UA) Urine Ketones Urine Blood Urine Nitrate Urine Bilirubin Urine Urobilinogen Ur Leukocyte Esterase Urine WBC (Auto) Urine RBC (Auto) Ur Squamous Epith Cells Urine Bacteria Urine Yeast (Budding) Stool Leukocytes, Qual Random Vancomycin IgG Hepatitis A IgM Ab Hep Bs Antigen Hep B Core IgM Ab Hepatitis C Antibody 03/27/18 03/27/18 03/27/18 11:52 11:52 11:52 WBC RBC Hgb Hct MCV MCH MCHC RDW Plt Count MPV Neut % (Auto) Lymph % (Auto) Bee % (Auto) Eos % (Auto) Baso % (Auto) Neut # (Auto) Lymph # (Auto) Bee # (Auto) Eos # (Auto) Baso # (Auto) Neutrophils % (Manual) Band Neutrophils % Lymphocytes % (Manual) Reactive Lymphs % Monocytes % (Manual) Platelet Estimate Large Platelets Poikilocytosis (manual Ovalocytes PT INR Puncture Site pCO2 pO2 HCO3 ABG pH ABG Total CO2 ABG O2 Saturation ABG Base Excess ABG Hemoglobin ABG Carboxyhemoglobin POC ABG HHb (Measured) ABG Methemoglobin Jake Test A-a O2 Difference Respiratory Index Hgb O2 Saturation Vent Mode Mechanical Rate FiO2 Tidal Volume PEEP Sodium Potassium Chloride Carbon Dioxide Anion Gap BUN Creatinine Est GFR ( Amer) Est GFR (Non-Af Amer) POC Glucose (mg/dL) Random Glucose Lactic Acid Calcium Phosphorus Magnesium Total Bilirubin AST ALT Alkaline Phosphatase Ammonia 65 H Total Creatine Kinase Total Protein Albumin Globulin Albumin/Globulin Ratio Free T4 Thyroxine (T4) Free T3 pg/mL Total T3 Urine Color Urine Clarity Urine pH Ur Specific May Urine Protein Urine Glucose (UA) Urine Ketones Urine Blood Urine Nitrate Urine Bilirubin Urine Urobilinogen Ur Leukocyte Esterase Urine WBC (Auto) Urine RBC (Auto) Ur Squamous Epith Cells Urine Bacteria Urine Yeast (Budding) Stool Leukocytes, Qual Random Vancomycin IgG 1286.3 Hepatitis A IgM Ab Negative Hep Bs Antigen Negative Hep B Core IgM Ab Negative Hepatitis C Antibody Negative 03/27/18 13:40 WBC RBC Hgb Hct MCV MCH MCHC RDW Plt Count MPV Neut % (Auto) Lymph % (Auto) Bee % (Auto) Eos % (Auto) Baso % (Auto) Neut # (Auto) Lymph # (Auto) Bee # (Auto) Eos # (Auto) Baso # (Auto) Neutrophils % (Manual) Band Neutrophils % Lymphocytes % (Manual) Reactive Lymphs % Monocytes % (Manual) Platelet Estimate Large Platelets Poikilocytosis (manual Ovalocytes PT INR Puncture Site pCO2 pO2 HCO3 ABG pH ABG Total CO2 ABG O2 Saturation ABG Base Excess ABG Hemoglobin ABG Carboxyhemoglobin POC ABG HHb (Measured) ABG Methemoglobin Jake Test A-a O2 Difference Respiratory Index Hgb O2 Saturation Vent Mode Mechanical Rate FiO2 Tidal Volume PEEP Sodium Potassium Chloride Carbon Dioxide Anion Gap BUN Creatinine Est GFR ( Amer) Est GFR (Non-Af Amer) POC Glucose (mg/dL) Random Glucose Lactic Acid Calcium Phosphorus Magnesium Total Bilirubin AST ALT Alkaline Phosphatase Ammonia Total Creatine Kinase Total Protein Albumin Globulin Albumin/Globulin Ratio Free T4 Thyroxine (T4) Free T3 pg/mL Total T3 Urine Color Yellow Urine Clarity Hazy Urine pH 5.0 Ur Specific May 1.009 Urine Protein Negative Urine Glucose (UA) 3+ H Urine Ketones Negative Urine Blood 2+ H Urine Nitrate Negative Urine Bilirubin Negative Urine Urobilinogen Normal Ur Leukocyte Esterase 2+ H Urine WBC (Auto) 44 H Urine RBC (Auto) 28 H Ur Squamous Epith Cells < 1 Urine Bacteria Rare Urine Yeast (Budding) Mod H Stool Leukocytes, Qual Random Vancomycin IgG Hepatitis A IgM Ab Hep Bs Antigen Hep B Core IgM Ab Hepatitis C Antibody Fingerstick Blood Sugar Results: 443 Review of Systems - Review of Systems Review of Systems: limited ROS 2nd intubation Assessment/Plan - Assessment and Plan (Free Text) Assessment: AMS: suspect encephalopthy metabolic, drug related and/or infectious: obtain ammonia level, pt/inr, repeat ct head, obtain neurology eval and obtain eeg stat , neurology advsied to start vano/kandace and acyclovir -shock: combination of sepsis and cardiogenic: titrate off pressors, start midodrine and hydrocortisone, continue empriical abx, serial lactic -NG tube feeds -MICHELLE: slow resolution avoid nephrotoxic drugs -hyperthyroidism: continu PTU, avoid CT with IV contrast and start propanolol when off pressors -chronic systolic heart failrue:continue to monitor, titrate norepi to keep MAP >65 dvt ppx INR >2.0 PUD ppx protonix Prognosis guarded as patient has been intubated for more than 24 hours and has not awaken despite no sedation. cc time 45 minutes d/w daughters at bedside regarding current clinical management, d/w Dr. Jean and Dr. Hua - Date & Time Date: 03/27/18 Time: 15:00
[2018-03-27] MEDS: Sodium Chloride 0.9% 1,000 ML IV SCH (15:30)
[2018-03-27] MEDS: Acyclovir 500 MG in Sodium Chloride 0.9% 100 ML IV SCH (15:34)
--- NOTE | 2018-03-27 15:51 | CP.PCM.CON ---
History of Present Illness - History of Present Illness History of Present Illness: dictated Past Patient History - Past Social History Smoking Status: Light Smoker < 10 Cigarettes Daily - CARDIAC Hx Cardia Arrhythmia: Yes - PULMONARY Hx Respiratory Disorders: No - NEUROLOGICAL Hx Neurological Disorder: No - HEENT Hx HEENT Problems: No - RENAL Hx Chronic Kidney Disease: No - ENDOCRINE/METABOLIC Hx Hyperthyroidism: Yes (DX 2017. MARCH) - HEMATOLOGICAL/ONCOLOGICAL Hx Blood Disorders: No - INTEGUMENTARY Hx Dermatological Problems: No - MUSCULOSKELETAL/RHEUMATOLOGICAL Hx Falls: Yes (felt dizzy at home and fell) - GASTROINTESTINAL Hx Diarrhea: Yes Hx Nausea: Yes - GENITOURINARY/GYNECOLOGICAL Hx Genitourinary Disorders: No - PSYCHIATRIC Hx Psychophysiologic Disorder: No Hx Substance Use: No - SURGICAL HISTORY Hx Surgeries: No - ANESTHESIA Hx Anesthesia: Yes Hx Anesthesia Reactions: No Hx Malignant Hyperthermia: No Has any member of the family had a problem w/ anesthesia?: No Meds Allergies/Adverse Reactions: Allergies Allergy/AdvReac Type Severity Reaction Status Date / Time No Known Allergies Allergy Unverified 03/24/18 20:31 - Medications Medications: Current Medications Acetaminophen (Tylenol 650mg/20.3ml Solution Ud) 650 mg PO Q4H PRN PRN Reason: Temperature above 100.6 Last Admin: 03/25/18 17:23 Dose: 650 mg Cholestyramine Resin (Prevalite) 4 gm PO Q8H [facility] Last Admin: 03/27/18 09:24 Dose: 4 gm Famotidine (Pepcid) 20 mg PO BID NEREYDA Last Admin: 03/27/18 09:23 Dose: 20 mg Hydrocortisone Sodium Succinate (Solu-Cortef) 50 mg IV Q12H NEREYDA Norepinephrine Bitartrate 4 mg (/ Dextrose) 254 mls @ 15.24 mls/hr IV .[id number] PRN; Protocol; 4 MCG/MIN PRN Reason: TITRATE PER MD ORDER Last Admin: 03/27/18 12:01 Dose: 9 mcg/min, 34.29 mls/hr Metronidazole (Flagyl) 500 mg in 100 mls @ 100 mls/hr IVPB Q8 NEREYDA PRN Reason: Protocol Last Admin: 03/27/18 13:42 Dose: 100 mls/hr Vasopressin 40 units/ Sodium (Chloride) 40 mls @ 0.6 mls/hr IV .Q24H NEREYDA; 0.01 UNITS/MIN PRN Reason: Protocol Last Titration: 03/26/18 20:00 Dose: 0.04 units/min, 2.4 mls/hr Meropenem 500 mg/ Sodium (Chloride) 100 mls @ 100 mls/hr IVPB Q8 NEREYDA PRN Reason: Protocol Last Admin: 03/27/18 13:52 Dose: 100 mls/hr Vancomycin/Sodium Chloride (Vancomycin 1 Gm/Ns 200 Ml) 1 gm in 200 mls @ 166.7 mls/hr IVPB Q24H NEREYDA PRN Reason: Protocol Stop: 04/01/18 10:01 Last Admin: 03/27/18 12:20 Dose: 166.7 mls/hr Sodium Chloride (Sodium Chloride 0.9%) 1,000 mls @ 100 mls/hr IV .Q10H [facility] Last Admin: 03/27/18 14:06 Dose: 100 mls/hr Levetiracetam 1,000 mg/ (Dextrose) 110 mls @ 420 mls/hr IVPB Q12H [facility] Last Admin: 03/27/18 14:43 Dose: 420 mls/hr Acyclovir 500 mg/ Sodium (Chloride) 100 mls @ 100 mls/hr IV Q12H NEREYDA PRN Reason: Protocol Last Admin: 03/27/18 15:34 Dose: 100 mls/hr Midazolam HCl 100 mg/ Dextrose 100 mls @ 0.99 mls/hr IV .Q24H PRN; Protocol; 0.02 MG/KG/HR PRN Reason: TITRATE PER MD ORDER Last Admin: 03/27/18 15:26 Dose: 0.02 mg/kg/hr, 0.99 mls/hr Sodium Chloride (Sodium Chloride 0.9%) 1,000 mls @ 75 mls/hr IV .[id number] [facility] Last Admin: 03/27/18 15:30 Dose: Not Given Fluconazole (Diflucan Iv 100 Mg/50 Ml Ns) 50 mls @ 100 mls/hr IVPB Q24H NEREYDA PRN Reason: Protocol Insulin Aspart (Novolog) 0 unit SC Q6H NEREYDA PRN Reason: Protocol Last Admin: 03/27/18 12:03 Dose: 10 unit Lactulose (Enulose) 20 gm PO BID PRN PRN Reason: Other Midodrine (Proamatine) 5 mg PO Q8H ENREYDA Last Admin: 03/27/18 14:18 Dose: 5 mg Propranolol HCl (Inderal) 10 mg PO DAILY [facility] Last Admin: 03/27/18 09:26 Dose: 10 mg Propylthiouracil (Propylthiouracil) 300 mg PO Q8H [facility] Stop: 03/30/18 12:01 Last Admin: 03/27/18 12:07 Dose: 300 mg Results - Vital Signs Recent Vital Signs: Last Vital Signs Temp 99.7 F H 03/27/18 12:00 Pulse 83 03/27/18 15:00 Resp 17 03/27/18 15:00 BP 110/41 L 03/27/18 15:00 Pulse Ox 98 03/27/18 15:00 - Labs Result Diagrams: 03/27/18 06:29 03/27/18 06:31 Labs: Laboratory Results - last 24 hr 03/25/18 03/26/18 03/26/18 08:15 17:54 23:37 WBC RBC Hgb Hct MCV MCH MCHC RDW Plt Count MPV Neut % (Auto) Lymph % (Auto) [place]gs % (Auto) Eos % (Auto) Baso % (Auto) Neut # (Auto) Lymph # (Auto) [place]gs # (Auto) Eos # (Auto) Baso # (Auto) Neutrophils % (Manual) Band Neutrophils % Lymphocytes % (Manual) Reactive Lymphs % Monocytes % (Manual) Platelet Estimate Large Platelets Poikilocytosis (manual Ovalocytes PT INR Puncture Site pCO2 pO2 HCO3 ABG pH ABG Total CO2 ABG O2 Saturation ABG Base Excess ABG Hemoglobin ABG Carboxyhemoglobin POC ABG HHb (Measured) ABG Methemoglobin Jake Test A-a O2 Difference Respiratory Index Hgb O2 Saturation Vent Mode Mechanical Rate FiO2 Tidal Volume PEEP Sodium Potassium Chloride Carbon Dioxide Anion Gap BUN Creatinine Est GFR ( Amer) Est GFR (Non-Af Amer) POC Glucose (mg/dL) 259 H 325 H Random Glucose Lactic Acid Calcium Phosphorus Magnesium Total Bilirubin AST ALT Alkaline Phosphatase Ammonia Total Creatine Kinase Total Protein Albumin Globulin Albumin/Globulin Ratio Free T4 Thyroxine (T4) Free T3 pg/mL Total T3 Urine Color Urine Clarity Urine pH Ur Specific Dairy Urine Protein Urine Glucose (UA) Urine Ketones Urine Blood Urine Nitrate Urine Bilirubin Urine Urobilinogen Ur Leukocyte Esterase Urine WBC (Auto) Urine RBC (Auto) Ur Squamous Epith Cells Urine Bacteria Urine Yeast (Budding) Stool Leukocytes, Qual Positive H Random Vancomycin IgG Hepatitis A IgM Ab Hep Bs Antigen Hep B Core IgM Ab Hepatitis C Antibody 03/27/18 03/27/18 03/27/18 05:09 05:38 06:29 WBC 13.9 H RBC 3.93 Hgb 12.5 Hct 37.1 MCV 94.3 MCH 31.9 H MCHC 33.8 RDW 14.3 Plt Count 114 L D MPV 10.0 Neut % (Auto) 86.7 H Lymph % (Auto) 7.5 L Twiggs % (Auto) 4.7 Eos % (Auto) 0.7 Baso % (Auto) 0.4 Neut # (Auto) 12.0 H Lymph # (Auto) 1.0 Tw[place]gs # (Auto) 0.6 Eos # (Auto) 0.1 Baso # (Auto) 0.1 Neutrophils % (Manual) 71 Band Neutrophils % 18 H* Lymphocytes % (Manual) 4 L Reactive Lymphs % 1 H Monocytes % (Manual) 6 Platelet Estimate Slightly decreased L Large Platelets Present Poikilocytosis (manual Slight Ovalocytes Slight PT INR Puncture Site Rr pCO2 47 H pO2 107 H HCO3 33.5 H ABG pH 7.49 H ABG Total CO2 37.2 H ABG O2 Saturation 99.3 H ABG Base Excess 11.0 H ABG Hemoglobin 12.0 ABG Carboxyhemoglobin 1.8 H POC ABG HHb (Measured) 0.7 ABG Methemoglobin 1.1 Jake Test Pos A-a O2 Difference 119.0 Respiratory Index 1.1 Hgb O2 Saturation 96.3 Vent Mode Prvc Mechanical Rate 16 FiO2 40.0 Tidal Volume 400 PEEP 5 Sodium Potassium Chloride Carbon Dioxide Anion Gap BUN Creatinine Est GFR ( Amer) Est GFR (Non-Af Amer) POC Glucose (mg/dL) 457 H* Random Glucose Lactic Acid Calcium Phosphorus Magnesium Total Bilirubin AST ALT Alkaline Phosphatase Ammonia Total Creatine Kinase Total Protein Albumin Globulin Albumin/Globulin Ratio Free T4 Thyroxine (T4) Free T3 pg/mL Total T3 Urine Color Urine Clarity Urine pH Ur Specific Dairy Urine Protein Urine Glucose (UA) Urine Ketones Urine Blood Urine Nitrate Urine Bilirubin Urine Urobilinogen Ur Leukocyte Esterase Urine WBC (Auto) Urine RBC (Auto) Ur Squamous Epith Cells Urine Bacteria Urine Yeast (Budding) Stool Leukocytes, Qual Random Vancomycin IgG Hepatitis A IgM Ab Hep Bs Antigen Hep B Core IgM Ab Hepatitis C Antibody 03/27/18 03/27/18 03/27/18 06:31 06:31 06:31 WBC RBC Hgb Hct MCV MCH MCHC RDW Plt Count MPV Neut % (Auto) Lymph % (Auto) [place] % (Auto) Eos % (Auto) Baso % (Auto) Neut # (Auto) Lymph # (Auto) [place] # (Auto) Eos # (Auto) Baso # (Auto) Neutrophils % (Manual) Band Neutrophils % Lymphocytes % (Manual) Reactive Lymphs % Monocytes % (Manual) Platelet Estimate Large Platelets Poikilocytosis (manual Ovalocytes PT INR Puncture Site pCO2 pO2 HCO3 ABG pH ABG Total CO2 ABG O2 Saturation ABG Base Excess ABG Hemoglobin ABG Carboxyhemoglobin POC ABG HHb (Measured) ABG Methemoglobin Jake Test A-a O2 Difference Respiratory Index Hgb O2 Saturation Vent Mode Mechanical Rate FiO2 Tidal Volume PEEP Sodium 137 Potassium 3.1 L Chloride 90 L Carbon Dioxide 39 H Anion Gap 11 BUN 55 H Creatinine 1.3 H Est GFR ( Amer) 49 Est GFR (Non-Af Amer) 40 POC Glucose (mg/dL) Random Glucose 412 H* D Lactic Acid Calcium 6.2 L Phosphorus 4.0 Magnesium 2.0 Total Bilirubin 5.1 H AST 2304 H ALT 668 H D Alkaline Phosphatase 80 Ammonia Total Creatine Kinase 1322 H Total Protein 4.9 L Albumin 2.3 L Globulin 2.7 Albumin/Globulin Ratio 0.8 L Free T4 6.00 H Thyroxine (T4) 10.1 Free T3 pg/mL 13.40 H Total T3 2.80 H Urine Color Urine Clarity Urine pH Ur Specific Dairy Urine Protein Urine Glucose (UA) Urine Ketones Urine Blood Urine Nitrate Urine Bilirubin Urine Urobilinogen Ur Leukocyte Esterase Urine WBC (Auto) Urine RBC (Auto) Ur Squamous Epith Cells Urine Bacteria Urine Yeast (Budding) Stool Leukocytes, Qual Random Vancomycin 6.5 IgG Hepatitis A IgM Ab Hep Bs Antigen Hep B Core IgM Ab Hepatitis C Antibody 03/27/18 03/27/18 03/27/18 11:30 11:52 11:52 WBC RBC Hgb Hct MCV MCH MCHC RDW Plt Count MPV Neut % (Auto) Lymph % (Auto) [place] % (Auto) Eos % (Auto) Baso % (Auto) Neut # (Auto) Lymph # (Auto) [place] # (Auto) Eos # (Auto) Baso # (Auto) Neutrophils % (Manual) Band Neutrophils % Lymphocytes % (Manual) Reactive Lymphs % Monocytes % (Manual) Platelet Estimate Large Platelets Poikilocytosis (manual Ovalocytes PT 34.1 H* INR 3.1 Puncture Site pCO2 pO2 HCO3 ABG pH ABG Total CO2 ABG O2 Saturation ABG Base Excess ABG Hemoglobin ABG Carboxyhemoglobin POC ABG HHb (Measured) ABG Methemoglobin Jake Test A-a O2 Difference Respiratory Index Hgb O2 Saturation Vent Mode Mechanical Rate FiO2 Tidal Volume PEEP Sodium Potassium Chloride Carbon Dioxide Anion Gap BUN Creatinine Est GFR ( Amer) Est GFR (Non-Af Amer) POC Glucose (mg/dL) 443 H* Random Glucose Lactic Acid 3.3 H Calcium Phosphorus Magnesium Total Bilirubin AST ALT Alkaline Phosphatase Ammonia Total Creatine Kinase Total Protein Albumin Globulin Albumin/Globulin Ratio Free T4 Thyroxine (T4) Free T3 pg/mL Total T3 Urine Color Urine Clarity Urine pH Ur Specific Dairy Urine Protein Urine Glucose (UA) Urine Ketones Urine Blood Urine Nitrate Urine Bilirubin Urine Urobilinogen Ur Leukocyte Esterase Urine WBC (Auto) Urine RBC (Auto) Ur Squamous Epith Cells Urine Bacteria Urine Yeast (Budding) Stool Leukocytes, Qual Random Vancomycin IgG Hepatitis A IgM Ab Hep Bs Antigen Hep B Core IgM Ab Hepatitis C Antibody 03/27/18 03/27/18 03/27/18 11:52 11:52 11:52 WBC RBC Hgb Hct MCV MCH MCHC RDW Plt Count MPV Neut % (Auto) Lymph % (Auto) [place] % (Auto) Eos % (Auto) Baso % (Auto) Neut # (Auto) Lymph # (Auto) [place] # (Auto) Eos # (Auto) Baso # (Auto) Neutrophils % (Manual) Band Neutrophils % Lymphocytes % (Manual) Reactive Lymphs % Monocytes % (Manual) Platelet Estimate Large Platelets Poikilocytosis (manual Ovalocytes PT INR Puncture Site pCO2 pO2 HCO3 ABG pH ABG Total CO2 ABG O2 Saturation ABG Base Excess ABG Hemoglobin ABG Carboxyhemoglobin POC ABG HHb (Measured) ABG Methemoglobin Jake Test A-a O2 Difference Respiratory Index Hgb O2 Saturation Vent Mode Mechanical Rate FiO2 Tidal Volume PEEP Sodium Potassium Chloride Carbon Dioxide Anion Gap BUN Creatinine Est GFR ( Amer) Est GFR (Non-Af Amer) POC Glucose (mg/dL) Random Glucose Lactic Acid Calcium Phosphorus Magnesium Total Bilirubin AST ALT Alkaline Phosphatase Ammonia 65 H Total Creatine Kinase Total Protein Albumin Globulin Albumin/Globulin Ratio Free T4 Thyroxine (T4) Free T3 pg/mL Total T3 Urine Color Urine Clarity Urine pH Ur Specific Dairy Urine Protein Urine Glucose (UA) Urine Ketones Urine Blood Urine Nitrate Urine Bilirubin Urine Urobilinogen Ur Leukocyte Esterase Urine WBC (Auto) Urine RBC (Auto) Ur Squamous Epith Cells Urine Bacteria Urine Yeast (Budding) Stool Leukocytes, Qual Random Vancomycin IgG 1286.3 Hepatitis A IgM Ab Negative Hep Bs Antigen Negative Hep B Core IgM Ab Negative Hepatitis C Antibody Negative 03/27/18 13:40 WBC RBC Hgb Hct MCV MCH MCHC RDW Plt Count MPV Neut % (Auto) Lymph % (Auto) [place] % (Auto) Eos % (Auto) Baso % (Auto) Neut # (Auto) Lymph # (Auto) [place] # (Auto) Eos # (Auto) Baso # (Auto) Neutrophils % (Manual) Band Neutrophils % Lymphocytes % (Manual) Reactive Lymphs % Monocytes % (Manual) Platelet Estimate Large Platelets Poikilocytosis (manual Ovalocytes PT INR Puncture Site pCO2 pO2 HCO3 ABG pH ABG Total CO2 ABG O2 Saturation ABG Base Excess ABG Hemoglobin ABG Carboxyhemoglobin POC ABG HHb (Measured) ABG Methemoglobin Jake Test A-a O2 Difference Respiratory Index Hgb O2 Saturation Vent Mode Mechanical Rate FiO2 Tidal Volume PEEP Sodium Potassium Chloride Carbon Dioxide Anion Gap BUN Creatinine Est GFR ( Amer) Est GFR (Non-Af Amer) POC Glucose (mg/dL) Random Glucose Lactic Acid Calcium Phosphorus Magnesium Total Bilirubin AST ALT Alkaline Phosphatase Ammonia Total Creatine Kinase Total Protein Albumin Globulin Albumin/Globulin Ratio Free T4 Thyroxine (T4) Free T3 pg/mL Total T3 Urine Color Yellow Urine Clarity Hazy Urine pH 5.0 Ur Specific Dairy 1.009 Urine Protein Negative Urine Glucose (UA) 3+ H Urine Ketones Negative Urine Blood 2+ H Urine Nitrate Negative Urine Bilirubin Negative Urine Urobilinogen Normal Ur Leukocyte Esterase 2+ H Urine WBC (Auto) 44 H Urine RBC (Auto) 28 H Ur Squamous Epith Cells < 1 Urine Bacteria Rare Urine Yeast (Budding) Mod H Stool Leukocytes, Qual Random Vancomycin IgG Hepatitis A IgM Ab Hep Bs Antigen Hep B Core IgM Ab Hepatitis C Antibody
--- NOTE | 2018-03-27 17:33 | CT ---
PROCEDURE: CT Angiography of the Brain. HISTORY: stroke COMPARISON: None available. TECHNIQUE: CT angiography of the intracranial and neck arteries was performed. Coronal and sagittal maximum intensity projection reformatted images were generated. Contrast Dose: Visipaque 320, 100 cc Radiation dose:Total exam DLP = 444.15 mGy-cm. This CT exam was performed using one or more of the following dose reduction techniques: Automated exposure control, adjustment of the mA and/or kV according to patient size, and/or use of iterative reconstruction technique. FINDINGS: INTERNAL CEREBRAL ARTERIES: Unremarkable. The skull base, petrous, cavernous and supraclinoid segments are bilaterally widely patent. ANTERIOR CEREBRAL ARTERIES: Unremarkable. A1 and A2 segments are widely patent. Smaller distal branches unremarkable, as visualized. MIDDLE CEREBRAL ARTERIES: Unremarkable. M1 and M2 segments are widely patent. Perisylvian branches grossly symmetric. POSTERIOR CIRCULATION: Basilar Artery: Unremarkable. Distal Vertebral Arteries: Unremarkable. Posterior Cerebral Arteries: Unremarkable. Posterior Inferior Cerebellar Arteries: Unremarkable. NECK CTA: Common Carotid arteries: The bilateral common carotid appear widely patent from their origins to their bifurcations with no significant stenosis appreciated. No evidence to suggest common carotid artery dissection trace left carotid bulbar atherosclerotic plaque identified. . Internal Carotid arteries: No significant stenosis is appreciated throughout the cervical internal carotid artery segments bilaterally and there is no evidence of dissection either. External Carotid arteries: Appear unremarkable bilaterally. Vertebral arteries: The bilateral vertebral arteries appear normal in caliber from their origins to their junction with the basilar artery. No significant stenosis or definite pattern of dissection. ANEURYSM/ VASCULAR MALFORMATIONS: None. OTHER FINDINGS: None. IMPRESSION: No occlusion or significant stenosis appreciated within the major intracranial and neck arterial circulation, as discussed above.
[2018-03-27] MEDS: Fluconazole IV 100mg/50 ml NS 50 ML IVPB SCH (18:23)
[2018-03-27] MEDS ORDERED: Acetylcysteine 20% Inhal Soln (4ml) ONE (20:04)
[2018-03-27] MEDS: Acetylcysteine 20% Inhal Soln (4ml) PO SCH (20:11)
--- NOTE | 2018-03-27 22:54 | CARD ---
APPROVED REPORT EKG Measurement Heart [id number] <Conclusion> Normal sinus rhythm Low voltage QRS in limb leads Poor R wave progression Abnormal ECG
[2018-03-28] MEDS: Cholestyramine 4 gm/5.5 gm UD Packet PO SCH ×4 (00:25→23:48)
[2018-03-28] MEDS: Acyclovir 500 MG in Sodium Chloride 0.9% 100 ML IV SCH ×2 (04:02→16:21)
[2018-03-28] MEDS: Sodium Chloride 0.9% 1,000 ML IV SCH ×2 (04:35→18:00)
[2018-03-28] MEDS: metroNIDAZOLE IV 500 mg/100 ml 500 MG/100 ML BAG IVPB SCH (05:06)
[2018-03-28 05:29] LABS: ABG ALLEN TEST POS; ARTERIAL BLOOD GAS HCO3 37.1 mmol/L (21-28); ARTERIAL BLOOD GAS HEMOGLOBIN 11.8 g/dL (11.7-17.4); ARTERIAL BLOOD GAS O2 SAT 98.7 % (95-98); ARTERIAL BLOOD GAS PCO2 43 mm/Hg (35-45); ARTERIAL BLOOD GAS PH 7.57 (7.35-7.45); ARTERIAL BLOOD GAS PO2 76 mm/Hg (80-100); ARTERIAL BLOOD GAS TCO2 40.7 mmol/L (22-28)
[2018-03-28] MEDS: (Novolog) Insulin Aspart, Recombinant 100 u/ml 10 ml vial SC SCH ×4 (05:39→19:12)
[2018-03-28] MEDS: Meropenem 500 MG in Sodium Chloride 0.9% 100 ML IVPB SCH ×3 (06:15→21:18)
[2018-03-28 06:17] LABS: BASO % 0.2 % (0.0-2.0); EOS % 0.2 % (0.0-4.0); HEMOGLOBIN 11.9 g/dL (11.0-16.0); LYMPH # 0.8 K/uL (1.0-4.3); LYMPH % 7.4 % (20.0-40.0); MEAN CELL VOLUME 93.3 fL (81.0-99.0); MEAN CORPUSCULAR HEMOGLOBIN 31.9 pg (27.0-31.0); MEAN CORPUSCULAR HGB CONC 34.3 g/dL (33.0-37.0); MEAN PLATELET VOLUME 10.6 fL (7.2-11.7); MONO # 0.4 K/uL (0.0-0.8); NEUT % 88.2 % (50.0-75.0); NRBC % 0.3 % (0.0-2.0); PLATELET COUNT 80 K/uL (130-400); RBC 3.74 Mil/uL (3.80-5.20); RED CELL DISTRIBUTION WIDTH 14.3 % (11.5-14.5); WHITE BLOOD COUNT 11.3 K/uL (4.8-10.8)
[2018-03-28 06:44] LABS: ALB/GLOB RATIO 0.8 (1.0-2.1); ALT/SGPT 862 U/L (9-52); BLOOD UREA NITROGEN 50 mg/dL (7-17); CALCIUM 6.8 mg/dl (8.6-10.4); GAMMA GLUTAMYL TRANSPEPTIDASE 50 U/L (8-78); GFR AFRICAN-AMERICAN > 60; GFR NON-AFRICAN AMERICAN > 60; T4 8.29 ug/dL (5.5-11.0)
[2018-03-28 06:50] LABS: AST/SGOT 2488 U/L (14-36)
--- NOTE | 2018-03-28 06:51 | CP.PCM.PN ---
Subjective - Date & Time of Evaluation Date of Evaluation: 03/28/18 Time of Evaluation: 06:49 - Subjective Subjective: Ms. Jewell was seen and examined at the bedside in ICU. She is on mechanical ventilator on PRVC mode. Her pupils are reactive to light with 3 mm size equal bilaterally, + corneal reflex, + gag reflex, withdraws from any noxious stimuli with GCS- 4T. EEG was done yesterday. CTA done yesterday which showed no occlusion or significant stenosis appreciated within the major intracranial and neck arterial circulation. There was no untoward events overnight. Objective - Vital Signs/Intake and Output Vital Signs (last 24 hours): Temp Pulse Resp BP Pulse Ox 99.5 F 85 22 124/44 L 93 L 03/28/18 04:00 03/28/18 06:11 03/28/18 06:11 03/28/18 06:11 03/28/18 06:11 Intake and Output: 03/27/18 03/28/18 18:59 06:59 Intake Total 3539.9 2432.6 Output Total 755 980 Balance 2784.9 1452.6 - Medications Medications: Current Medications Acetaminophen (Tylenol 650mg/20.3ml Solution Ud) 650 mg PO Q4H PRN PRN Reason: Temperature above 100.6 Last Admin: 03/25/18 17:23 Dose: 650 mg Acetylcysteine (Acetylcysteine 20%) 8 ml PO Q12H [facility] Stop: 03/29/18 07:16 Last Admin: 03/27/18 20:11 Dose: 8 ml Cholestyramine Resin (Prevalite) 4 gm PO Q8H [facility] Last Admin: 03/28/18 00:25 Dose: 4 gm Famotidine (Pepcid) 20 mg PO BID [facility] Last Admin: 03/27/18 17:56 Dose: 20 mg Hydrocortisone Sodium Succinate (Solu-Cortef) 50 mg IV Q12H [facility] Last Admin: 03/27/18 21:22 Dose: 50 mg Norepinephrine Bitartrate 4 mg (/ Dextrose) 254 mls @ 15.24 mls/hr IV .[id number] PRN; Protocol; 4 MCG/MIN PRN Reason: TITRATE PER MD ORDER Last Titration: 03/28/18 06:16 Dose: 4.93 mcg/min, 18.8 mls/hr Metronidazole (Flagyl) 500 mg in 100 mls @ 100 mls/hr IVPB Q8 [facility] PRN Reason: Protocol Last Admin: 03/28/18 05:06 Dose: 100 mls/hr Vasopressin 40 units/ Sodium (Chloride) 40 mls @ 0.6 mls/hr IV .Q24H [facility]; 0.01 UNITS/MIN PRN Reason: Protocol Last Admin: 03/27/18 17:57 Dose: 0.04 units/min, 2.4 mls/hr Meropenem 500 mg/ Sodium (Chloride) 100 mls @ 100 mls/hr IVPB Q8 [facility] PRN Reason: Protocol Last Admin: 03/28/18 06:15 Dose: 100 mls/hr Vancomycin/Sodium Chloride (Vancomycin 1 Gm/Ns 200 Ml) 1 gm in 200 mls @ 166.7 mls/hr IVPB Q24H [facility] PRN Reason: Protocol Stop: 04/01/18 10:01 Last Admin: 03/27/18 12:20 Dose: 166.7 mls/hr Levetiracetam 1,000 mg/ (Dextrose) 110 mls @ 420 mls/hr IVPB Q12H [facility] Last Admin: 03/28/18 03:23 Dose: 420 mls/hr Acyclovir 500 mg/ Sodium (Chloride) 100 mls @ 100 mls/hr IV Q12H [facility] PRN Reason: Protocol Last Admin: 03/28/18 04:02 Dose: 100 mls/hr Sodium Chloride (Sodium Chloride 0.9%) 1,000 mls @ 75 mls/hr IV .[id number] [facility] Last Admin: 03/28/18 04:35 Dose: Not Given Fluconazole (Diflucan Iv 100 Mg/50 Ml Ns) 50 mls @ 100 mls/hr IVPB Q24H [facility] PRN Reason: Protocol Last Admin: 03/27/18 18:23 Dose: 100 mls/hr Insulin Aspart (Novolog) 0 unit SC Q6H [facility] PRN Reason: Protocol Last Admin: 03/28/18 05:39 Dose: 2 unit Lactulose (Enulose) 20 gm PO BID PRN PRN Reason: Other Midodrine (Proamatine) 5 mg PO Q8H [facility] Last Admin: 03/28/18 05:07 Dose: 5 mg Propranolol HCl (Inderal) 10 mg PO DAILY [facility] Last Admin: 03/27/18 09:26 Dose: 10 mg Propylthiouracil (Propylthiouracil) 300 mg PO Q8H [facility] Stop: 03/30/18 12:01 Last Admin: 03/28/18 03:24 Dose: 300 mg - Labs Labs: 03/28/18 05:59 03/28/18 06:02 PT 34.1 SECONDS (9.7-12.2) H* 03/27/18 11:52 INR 3.1 03/27/18 11:52 - Constitutional Appears: No Acute Distress - Head Exam Head Exam: NORMAL INSPECTION - Eye Exam Pupil Exam: PERRL Additional comments: 3 mm equal bilaterally - Neurological Exam Neuro motor strength exam: Left Upper Extremity: 0, Right Upper Extremity: 0, Left Lower Extremity: 0, Right Lower Extremity: 0 Additional comments: GCS- 4T Assessment and Plan (1) Seizure Assessment & Plan: Case discussed with Dr. Hua, continue all current medical regimen. Recommend repeat CT scan of the head. Pending EEG results. Status: Acute
[2018-03-28 06:57] LABS: T3 2.44 nmol/L (1.49-2.60)
[2018-03-28] MEDS: Acetylcysteine 20% Inhal Soln (4ml) PO SCH ×2 (07:03→18:44)
--- NOTE | 2018-03-28 07:07 | CON ---
DATE: Consult requested by Arnel Jean DO HISTORY OF PRESENT ILLNESS: This patient is a 72-year-old female. She was recently diagnosed with hyperthyroidism two weeks ago and she has been having diarrhea, nausea, vomiting, and falls. She has had these symptoms for a long time but she has not sought medical attention, and the patient was complaining of fever and chills a day before coming here. She came here on 03/25/2018 and in the evening she developed diarrhea, nausea, vomiting and has denied any bleeding on admission. Denied any blood in the vomitus, and she was trying to get out of bed, she fell and was very dizzy. She denied any loss of consciousness, came to the emergency room and the patient was recently diagnosed with hyperthyroidism two weeks ago and was started on metamizole and metoprolol and was very weak and tired and yesterday by her fire truck driver, her metamizole was increased to three times a day or four times a day. The history is taken mostly from the chart and Dr. Jean personally spoke to me about the patient. The patient remains intubated in ICU. I am asked to evaluate. She is on two vasopressors and her family was at the bedside when I saw the patient today. Also, neurologist is following the patient. The patient was having this nausea, vomiting and was admitted. She had no chest pain when she was admitted. No shortness of breath and was just complaining of diarrhea and lightheadedness. SOCIAL HISTORY: Significant for smoking 40-50 years and no ETOH or drug abuse. REVIEW OF SYSTEMS: She has lost weight and was having chills and fever. On admission, she denied any blurred vision or change of vision. She was having no chest pain, no dyspnea. No edema. No cough. No wheezing. She did have diarrhea, loose BM, nausea, vomiting, abdominal pain, bloating, constipation. She had no dysuria, urinary urgency. She had no pain, back pain, or numbness or tingling. No skin problems. She did have endocrine problems and palpitations. No psych issues. She did come with dizziness and her previous history is significant for smoking and was with cardiac, hyperthyroidism diagnosed in 2018, two weeks ago. No history of substance abuse. ALLERGIES: SHE IS NOT ALLERGIC TO ANY MEDICINES. She came with GI symptoms. They did a CAT scan of abdomen and pelvis and the patient was placed on antibiotics. However, this patient from Saturday, the family says, has been confused soon after she had the CAT scan. She had to be intubated for severe shortness of breath and has been intubated and she has not been sedated but she is not waking up and family is concerned. She remains on vasopressors. She is not allergic to any medicine. MEDICATIONS: Include Tylenol, acyclovir was just added today based on the findings in the EEG. 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 She is on hydrocortisone 50 q.12. She is on insulin coverage, lactulose, she is on Talwin q. 12. She is on meropenem. She is on metronidazole, metamizole, midodrine, norepinephrine, propranolol, PTU, sodium chloride, and I just started vancomycin 1 gm and vasopressin, she is on that. I just discontinued Azactam as the cultures are negative so far and only culture lab did is the sputum and urine showed yeast. PHYSICAL EXAMINATION: GENERAL: I find she is intubated and remains unresponsive. VITAL SIGNS: T-max was 100.1 today, pulse 86, blood pressure 109/45, respirations are 17. HEENT: Head is atraumatic, unresponsive, intubated. NECK: Supple, otherwise. LUNGS: Clear mostly. HEART: S1 and S2 are regular. ABDOMEN: Soft and nontender. No guarding, no rigidity present. EXTREMITIES: Have no edema noted. She is making urine. There is a Garcia catheter. LABORATORY DATA: White count is 13.9, hemoglobin 12.5, hematocrit 37.1, platelet count is 114. Chemistry, I might have lost, but the creatinine is 1.3 today. Currently, this computer connection is giving me hard time. EEG, I would like to dictate partially the other information later. I discussed the findings with the neurologist, and she said that the EEG was very suggestive of encephalitis, so acyclovir was added, it was 500 every 12 as she does have renal insufficiency at this time and her thyroid function was suggestive of thyroid storm and she is being followed by Dr. House and has been on medications, so we will follow with them. At this time, I have planned to continue these antibiotics and she remains stable on vasopressors and will follow and also send for test in the blood and she is also looking for neurologist, also suspecting stroke, so that needs to be monitored and that needs to be also seen what the test results will show and just wanted to go over the test, the lab reports, so at this time the computer is back. Sodium is 137, potassium 3.1, chlorides are 90, CO2 is 39, BUN is 55, creatinine is 1.3, and liver functions, AST is 2308 and ALT is 668. These liver functions can also go up with thyroid function drugs, so these need to be monitored for liver toxicity. Also, she is on Keppra, so we will send for a Keppra level tomorrow and ammonia level was little high; so we will follow. At this time, her chest x-ray, I cannot get it at this time. IMPRESSION AND PLAN: This patient with thyroidism came with acute respiratory failure. She was ruled out for cholecystitis by HIDA scan. Did have abdominal pain. Liver function tests are elevated, may be related to the drugs. We will get her Keppra level also and continue present antibiotics and antiviral. We will consider changing the Garcia catheter tomorrow or day after and we will follow with other consultants.. We will follow. Sammy Avendano MD
--- NOTE | 2018-03-28 07:17 | PN ---
DATE: 03/27/2018 ENDO FOLLOWUP NOTE LOCATION: ICU room 17. PHYSICAL EXAMINATION: GENERAL: This is a 72-year-old female with overt thyrotoxicosis both historically, clinically, and biochemically and actually developed acute respiratory failure at this time and endotracheally intubated at this time. ASSESSMENT AND PLAN: She is being empirically treated for possible thyroid crisis with high dose medical therapy using thiourea as ordered. They are switched to over now to propylthiouracil or PTU given as 300 mg every 8 hours as noted. Her glycemic fluctuations are expected with hypothyroid therapy as given. LABORATORY STUDIES: Her latest chemistries showed BUN of 55, sodium 137, potassium 3.1, chloride 90, CO2 of 39, glucose 412, and creatinine 1.3. Her liver profile studies are still elevated as noted with a total creatine kinase of . Continue with the PTU medications as ordered with 300 mg every 8 hours. We will obtain serial thyroid studies and titrate as noted. ASSESSMENT AND PLAN: but high dose of thiourea, possible hepatotoxicity with regard to this matter. The hydrocortisone down to 60 mg IV every 12 hours and tomorrow morning. elevated hydrocortisone as noted. We are awaiting the thyroid antibodies which will confirm on the basis of underlying thyroid autoimmune disease. Ani oHuse MD
[2018-03-28] MEDS ORDERED: Potassium Chloride 20 mEq/15 ml LIQ UD PO STA (07:21)
--- NOTE | 2018-03-28 08:08 | RAD ---
Chest x-ray single frontal view History: Ventilated. Comparison: 03/27/2018 Findings: Lines and tubes stable position. Moderate venous congestion. Diffuse increased interstitial lung markings. Biapical pleural thickening with upper lobe granulomatous changes. Nodularity at the left costophrenic angle. Cardiomegaly. Calcification at the aortic knob. Degenerative changes spine and shoulders. Impression: Lines and tubes stable position. Moderate venous congestion. Diffuse increased interstitial lung markings. Biapical pleural thickening with upper lobe granulomatous changes. Nodularity at the left costophrenic angle. Cardiomegaly. Calcification at the aortic knob. Degenerative changes spine and shoulders.
[2018-03-28] MEDS ORDERED: Phytonadione 10 mg/ml Inj (Adult) SC STA (08:30)
[2018-03-28 08:36] LABS: BANDS 16 % (0-2); LYMPHOCYTE 5 % (20-40); MONOCYTE 2 % (0-10); NEUTROPHIL 77 % (50-75); PLATELET ESTIMATE DECREASED (NORMAL); TOTAL CELLS COUNTED 100
[2018-03-28 08:38] LABS: ANISOCYTOSIS SLIGHT; LARGE PLATELETS PRESENT
[2018-03-28 08:39] LABS: HYPOCHROMIC SLIGHT; POLYCHROMIC SLIGHT
--- NOTE | 2018-03-28 08:56 | CP.PCM.PN ---
Subjective - Date & Time of Evaluation Date of Evaluation: 03/28/18 Time of Evaluation: 08:45 - Subjective Subjective: Patient was seen and examined She remains intubated on PRVC settings at this time HR is 70s to 80s NSR, the blood pressure systolic in the 110s to 120s. They were able to decrease pressors overnight Urine output recorded 1735 Tmax 100.1 Yesterday discussed with neurology, the patient had EEG which was suggestive of either stroke or HSV encephalitis. After some discussion a CTA was done, we did discuss that the contrast could make the thyroid crisis worse but we need to get better evaluation for a stroke. Per my discussion with radiology the CTA was normal. Because the EEG could indicate HSV, Acylovir and Keppra was started. I also spoke with ID as well. The LFT and T maryam are higher, this maybe from the PTU. The T3 was 14 and T4 6.9 today As mentioned previously this is a 72 year old female who was just recently diagnosed with hyperthyroidism outpatient. The patient came in on 03/24 with severe uncontrolled diarrhea. She was feeling weak, tired, and reportedly palpitations. She fell out of her bed as she was trying to go to bathroom. She has had weight loss for some time as well. There have been fevers as well. Her respirations and mental status became worse and she required intubation. My concern is she is in a thyroid crisis/storm possibly from an infection or possible from IV contrast. She also has a very low EF and hypokinesis Objective - Vital Signs/Intake and Output Vital Signs (last 24 hours): Temp Pulse Resp BP Pulse Ox 99.5 F 85 22 124/44 L 93 L 03/28/18 04:00 03/28/18 06:11 03/28/18 06:11 03/28/18 06:11 03/28/18 06:11 Intake and Output: 03/28/18 03/28/18 06:59 18:59 Intake Total 2432.6 Output Total 980 Balance 1452.6 - Medications Medications: Current Medications Acetaminophen (Tylenol 650mg/20.3ml Solution Ud) 650 mg PO Q4H PRN PRN Reason: Temperature above 100.6 Last Admin: 03/25/18 17:23 Dose: 650 mg Acetylcysteine (Acetylcysteine 20%) 8 ml PO Q12H [facility] Stop: 03/29/18 07:16 Last Admin: 03/28/18 07:03 Dose: 8 ml Cholestyramine Resin (Prevalite) 4 gm PO Q8H [facility] Last Admin: 03/28/18 08:13 Dose: 4 gm Famotidine (Pepcid) 20 mg PO BID [facility] Last Admin: 03/27/18 17:56 Dose: 20 mg Hydrocortisone Sodium Succinate (Solu-Cortef) 50 mg IV Q12H [facility] Last Admin: 03/27/18 21:22 Dose: 50 mg Norepinephrine Bitartrate 4 mg (/ Dextrose) 254 mls @ 15.24 mls/hr IV .[id number] PRN; Protocol; 4 MCG/MIN PRN Reason: TITRATE PER MD ORDER Last Titration: 03/28/18 06:16 Dose: 4.93 mcg/min, 18.8 mls/hr Metronidazole (Flagyl) 500 mg in 100 mls @ 100 mls/hr IVPB Q8 [facility] PRN Reason: Protocol Last Admin: 03/28/18 05:06 Dose: 100 mls/hr Vasopressin 40 units/ Sodium (Chloride) 40 mls @ 0.6 mls/hr IV .Q24H [facility]; 0.01 UNITS/MIN PRN Reason: Protocol Last Admin: 03/27/18 17:57 Dose: 0.04 units/min, 2.4 mls/hr Meropenem 500 mg/ Sodium (Chloride) 100 mls @ 100 mls/hr IVPB Q8 [facility] PRN Reason: Protocol Last Admin: 03/28/18 06:15 Dose: 100 mls/hr Vancomycin/Sodium Chloride (Vancomycin 1 Gm/Ns 200 Ml) 1 gm in 200 mls @ 166.7 mls/hr IVPB Q24H [facility] PRN Reason: Protocol Stop: 04/01/18 10:01 Last Admin: 03/27/18 12:20 Dose: 166.7 mls/hr Acyclovir 500 mg/ Sodium (Chloride) 100 mls @ 100 mls/hr IV Q12H [facility] PRN Reason: Protocol Last Admin: 03/28/18 04:02 Dose: 100 mls/hr Sodium Chloride (Sodium Chloride 0.9%) 1,000 mls @ 75 mls/hr IV .[id number] [facility] Last Admin: 03/28/18 04:35 Dose: Not Given Fluconazole (Diflucan Iv 100 Mg/50 Ml Ns) 50 mls @ 100 mls/hr IVPB Q24H [facility] PRN Reason: Protocol Last Admin: 03/27/18 18:23 Dose: 100 mls/hr Potassium Chloride (Potassium Chloride 10 Meq/100 Ml) 10 meq in 100 mls @ 100 mls/hr IVPB ONCE ONE Stop: 03/28/18 08:59 Last Admin: 03/28/18 08:11 Dose: 100 mls/hr Potassium Chloride (Potassium Chloride 20 Meq/100 Ml) 20 meq in 100 mls @ 50 mls/hr IVPB ONCE ONE Stop: 03/28/18 10:59 Potassium Chloride (Potassium Chloride 20 Meq/100 Ml) 20 meq in 100 mls @ 50 mls/hr IVPB ONCE ONE Stop: 03/28/18 10:44 Potassium Chloride (Potassium Chloride 20 Meq/100 Ml) 20 meq in 100 mls @ 50 mls/hr IVPB ONCE ONE Stop: 03/28/18 12:44 Potassium Chloride (Potassium Chloride 20 Meq/100 Ml) 20 meq in 100 mls @ 50 mls/hr IVPB ONCE ONE Stop: 03/28/18 14:44 Levetiracetam 500 mg/ Dextrose 105 mls @ 420 mls/hr IVPB Q12H [facility] Insulin Aspart (Novolog) 0 unit SC Q6H [facility] PRN Reason: Protocol Last Admin: 03/28/18 05:39 Dose: 2 unit Lactulose (Enulose) 20 gm PO BID PRN PRN Reason: Other Midodrine (Proamatine) 5 mg PO Q8H [facility] Last Admin: 03/28/18 05:07 Dose: 5 mg Propranolol HCl (Inderal) 10 mg PO DAILY [facility] Last Admin: 03/27/18 09:26 Dose: 10 mg Propylthiouracil (Propylthiouracil) 300 mg PO Q8H [facility] Stop: 03/30/18 12:01 Last Admin: 03/28/18 03:24 Dose: 300 mg - Labs Labs: 03/28/18 05:59 03/28/18 06:02 PT 34.1 SECONDS (9.7-12.2) H* 03/27/18 11:52 INR 3.1 03/27/18 11:52 - Constitutional Appears: Toxic, Unkempt, Cachectic, Chronically Ill - Eye Exam Eye Exam: Scleral icterus Additional comments: Scheral icturus. Pinpoint pupils. - ENT Exam ENT Exam: Mucous Membranes Moist - Respiratory Exam Respiratory Exam: Clear to Ausculation Bilateral Additional comments: Mechanical breath sounds - Cardiovascular Exam Cardiovascular Exam: REGULAR RHYTHM - GI/Abdominal Exam GI & Abdominal Exam: Soft, Normal Bowel Sounds - Neurological Exam Neurological Exam: absent: Alert, Awake, Oriented x3 Neuro motor strength exam: Left Upper Extremity: 0, Right Upper Extremity: 0, Left Lower Extremity: 0, Right Lower Extremity: 0 - Skin Skin Exam: Pallor, Warm Attending/Attestation - Attestation I have personally seen and examined this patient.: Yes I have fully participated in the care of the patient.: Yes I have reviewed all pertinent clinical information, including history, physical exam and plan: Yes Notes (Text): 72 year old female with past medical history of recently diagnosed hyperthyroidism is admitted for intractable diarrhea, shortly thereafter developed respiratory distress and required intubation. There have been fevers as high as 104 and also rapid tachycardia. An echo was done showing severe hypokinesis and also low EF of 20%. She is also being covered with IV abx in case of infection as well. As of 03/27 she was started on Acylovir for the potential of HSV infection Thyroid Storm, elevated temperatures, rapid HR 03/28: HR is 70s to 80s now. NSR. Tmax 100.1 Hydrocortisone IV decreased to BID. The patient remains on PTU, Propranolol as well. 03/27: The T3 has decreased from 23 to 13. Yesterday started on PTU and Cholestramyine and Hydrocotizone IV. My concern is there maybe some underlying infection that has exacerbated her into thyroid crisis. Or this maybe have been made worse with IV contrast material. The blood cultures negative so far, the urine culture is being re- ordered. CXRAYs look ok, probably not pnuemonia 03/26: Tmax was 100.1, HR are in the 80s at this time NSR at this moment. She is now on Hydrocortisone 100 mg IV Q8, Cholestramynine 4 via NGT to slow T4 to T3 coversion. Remains on methimazole, considering her situation may have to change to PTU 03/25: Discussed with endocrinology. Has recieved IV hydrocortosone 250 mg Patient has been given IV hydrocortisone as well increased dose of tapazole to Q8. Continue the propranolol now, has also received IV propranol Per discussion with family members the patient has only been recently diagnosed with hyperthyroidism Will continue the following medications and adjust accordingly: methimazole 10 mg Q8H, Inderall 10 QD Respiratory failure: Now intubated 03/26: The chest XRAY is clear. Appreciate cardiology evaluation. 03/25: Likley secondary from worsening cardiac function. EF is very low and hypokinesis seen on echo She now has a central line and also on pressor IV levophed as well as bicarb ggt. Hypoglycemia: 03/27: Overnight was high. The D10 was stopped overnight. Started on SSI this morning. Continue follow accucheks 03/26: Overnight has had several low accuchecks - likley she has burned up a lot of her energy stores (fat/glycogen) because of the hyperthyroidism. She was placed on D10 overnight @ 50 Potential sepsis, cultures pending 03/28: Per discussion with neurology, patient was started on Acyclovir last night and Keppra. Blood cultures remains negative. WBC stable, However there is still a large left shift 03/27: Discussed with ID yesterday. Abx changed to meropenom, aztreonam and also flagyl. Blood cultures negative so far. Urine culture has to be taken again. Her UA suggest possible UTI. She did have a HIDA scan and this was negative. 03/26: Last night was on Zosyn. The bands this morning increased to 16, added vancomycin x 1. Blood cultures negative 24 hrs, urine culture pending, the CXRAY does not have infiltrates Intractable diarrhea - secondary to hyperthyroidism Dehydration Dizziness Likely secondary to hyperthyroidism Will check stool studies for stool leukocytes, cultures, c diff and electrolytes Once stool studies negative for infective cause, will place on Imodium for relief Elavated LFTs and Liver Lesion 03/28: The PTU maybe increasing her LFTs Incidental finding on CT. 5mm small lesion. If low risk of malignancy, no further follow up necessary. If high risk, recommended follow up CT or MRI in 6- 12 months. 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 Recommended follow up abdominal MRI in 6-12 months.
[2018-03-28 08:59] LABS: INR 3.2
[2018-03-28 09:08] LABS: PROTHROMBIN TIME 34.9 SECONDS (9.7-12.2)
[2018-03-28 09:14] LABS: CERULOPLASMIN 29 mg/dL (18-53)
--- NOTE | 2018-03-28 10:18 | CP.PCM.PN ---
<Jeremias Ribeiro - Last Filed: 03/28/18 10:18> Subjective - Date & Time of Evaluation Date of Evaluation: 03/28/18 Time of Evaluation: 07:00 - Subjective Subjective: PGY4 GI Follow-up Pt seen and examined bedside Intudated and on vent no overnight events still on pressors ROS: 12 point ROS conducted, neg other than above Objective - Vital Signs/Intake and Output Vital Signs (last 24 hours): Temp Pulse Resp BP Pulse Ox 99.2 F 86 22 125/51 L 97 03/28/18 08:00 03/28/18 09:00 03/28/18 09:00 03/28/18 08:11 03/28/18 09:00 Intake and Output: 03/28/18 03/28/18 06:59 18:59 Intake Total 2432.6 423.6 Output Total 980 180 Balance 1452.6 243.6 - Medications Medications: Current Medications Acetaminophen (Tylenol 650mg/20.3ml Solution Ud) 650 mg PO Q4H PRN PRN Reason: Temperature above 100.6 Last Admin: 03/25/18 17:23 Dose: 650 mg Acetylcysteine (Acetylcysteine 20%) 8 ml PO Q12H [facility] Stop: 03/29/18 07:16 Last Admin: 03/28/18 07:03 Dose: 8 ml Cholestyramine Resin (Prevalite) 4 gm PO Q8H [facility] Last Admin: 03/28/18 08:13 Dose: 4 gm Famotidine (Pepcid) 20 mg PO BID [facility] Last Admin: 03/27/18 17:56 Dose: 20 mg Hydrocortisone Sodium Succinate (Solu-Cortef) 50 mg IV Q12H [facility] Last Admin: 03/27/18 21:22 Dose: 50 mg Norepinephrine Bitartrate 4 mg (/ Dextrose) 254 mls @ 15.24 mls/hr IV .[id number] PRN; Protocol; 4 MCG/MIN PRN Reason: TITRATE PER MD ORDER Last Titration: 03/28/18 06:16 Dose: 4.93 mcg/min, 18.8 mls/hr Vasopressin 40 units/ Sodium (Chloride) 40 mls @ 0.6 mls/hr IV .Q24H [facility]; 0.01 UNITS/MIN PRN Reason: Protocol Last Admin: 03/27/18 17:57 Dose: 0.04 units/min, 2.4 mls/hr Meropenem 500 mg/ Sodium (Chloride) 100 mls @ 100 mls/hr IVPB Q8 [facility] PRN Reason: Protocol Last Admin: 03/28/18 06:15 Dose: 100 mls/hr Vancomycin/Sodium Chloride (Vancomycin 1 Gm/Ns 200 Ml) 1 gm in 200 mls @ 166.7 mls/hr IVPB Q24H [facility] PRN Reason: Protocol Stop: 04/01/18 10:01 Last Admin: 03/27/18 12:20 Dose: 166.7 mls/hr Acyclovir 500 mg/ Sodium (Chloride) 100 mls @ 100 mls/hr IV Q12H [facility] PRN Reason: Protocol Last Admin: 03/28/18 04:02 Dose: 100 mls/hr Sodium Chloride (Sodium Chloride 0.9%) 1,000 mls @ 75 mls/hr IV .[id number] [facility] Last Admin: 03/28/18 04:35 Dose: Not Given Fluconazole (Diflucan Iv 100 Mg/50 Ml Ns) 50 mls @ 100 mls/hr IVPB Q24H [facility] PRN Reason: Protocol Last Admin: 03/27/18 18:23 Dose: 100 mls/hr Potassium Chloride (Potassium Chloride 20 Meq/100 Ml) 20 meq in 100 mls @ 50 mls/hr IVPB ONCE ONE Stop: 03/28/18 10:59 Last Admin: 03/28/18 09:46 Dose: 50 mls/hr Potassium Chloride (Potassium Chloride 20 Meq/100 Ml) 20 meq in 100 mls @ 50 mls/hr IVPB ONCE ONE Stop: 03/28/18 10:44 Potassium Chloride (Potassium Chloride 20 Meq/100 Ml) 20 meq in 100 mls @ 50 mls/hr IVPB ONCE ONE Stop: 03/28/18 12:44 Potassium Chloride (Potassium Chloride 20 Meq/100 Ml) 20 meq in 100 mls @ 50 mls/hr IVPB ONCE ONE Stop: 03/28/18 14:44 Levetiracetam 500 mg/ Dextrose 105 mls @ 420 mls/hr IVPB Q12H [facility] Last Admin: 03/28/18 09:18 Dose: 420 mls/hr Insulin Aspart (Novolog) 0 unit SC Q6H [facility] PRN Reason: Protocol Last Admin: 03/28/18 05:39 Dose: 2 unit Lactulose (Enulose) 20 gm PO BID PRN PRN Reason: Other Midodrine (Proamatine) 5 mg PO Q8H [facility] Last Admin: 03/28/18 05:07 Dose: 5 mg Propranolol HCl (Inderal) 10 mg PO DAILY [facility] Last Admin: 03/27/18 09:26 Dose: 10 mg Propylthiouracil (Propylthiouracil) 300 mg PO Q8H [facility] Stop: 03/30/18 12:01 Last Admin: 03/28/18 03:24 Dose: 300 mg - Labs Labs: 03/28/18 05:59 03/28/18 06:02 PT 34.9 SECONDS (9.7-12.2) H* 03/28/18 08:34 INR 3.2 03/28/18 08:34 - Constitutional Appears: Well, No Acute Distress - Head Exam Head Exam: ATRAUMATIC, NORMOCEPHALIC - Eye Exam Eye Exam: Normal appearance - ENT Exam ENT Exam: Mucous Membranes Moist, Normal Exam - Neck Exam Neck Exam: Normal Inspection - Respiratory Exam Respiratory Exam: Clear to Ausculation Bilateral, NORMAL BREATHING PATTERN. absent: Rales, Rhonchi, Wheezes, Respiratory Distress - Cardiovascular Exam Cardiovascular Exam: REGULAR RHYTHM, +S1, +S2 - GI/Abdominal Exam GI & Abdominal Exam: Soft, Normal Bowel Sounds. absent: Distended, Firm, Guarding, Rigid, Tenderness, Diminished Bowel Sounds, Hyperactive Bowel Sounds, Organomegaly - Extremities Exam Extremities Exam: absent: Joint Swelling, Pedal Edema - Neurological Exam Neurological Exam: Alert, Awake, Oriented x3 - Psychiatric Exam Psychiatric exam: Normal Affect, Normal Mood - Skin Skin Exam: Dry, Intact, Normal Color, Warm Assessment and Plan - Assessment and Plan (Free Text) Assessment: Albina Jewell is a 72F w/ hx of hyperthyroidism who presented w/ near syncope, diarrhea, and abd pain. Pt was found to have acute cholecystitis on imaging. Course complicated with sepsis, rhabdomyolysis, thyroid storm, respiratory failure Elevate liver enzymes, etiology unknown, but likely multifactorial from thyroid storm, sepsis, mediation induced, rhabdo, r/o autoimmune and viral etiology; ddx : acute cholecystitis, rhabdomyolysis, medication induced Repiratory Failure Diarrhea, r/o infectous etiology, DDx: thyroid storm Thyroid storm MICHELLE Sepsis cholelithiasis Hypodense lesion in liver, small, inconclusive on CT Plan: -would recommend stopping tube feeds for now -continue to monitor LFTs -recheck INR -Hep viral serologies neg -HIDA neg -CT revealed normal CBD, + cholelithiasis -continue IV Hydration -Abd U/s Revealed normal CBD -will get direct bilirubin -recommend CT liver, once medially stable, not urgent, to eval hepatic lesion -can consider switching abx -initial rise of LFts may be 2/2 thyroid meds D/W Dr. Hall <Bib Hall - Last Filed: 03/28/18 13:04> Objective - Vital Signs/Intake and Output Vital Signs (last 24 hours): Temp Pulse Resp BP Pulse Ox 100.1 F H 82 23 104/55 L 97 03/28/18 12:00 03/28/18 12:52 03/28/18 12:52 03/28/18 12:52 03/28/18 12:52 Intake and Output: 03/28/18 03/28/18 06:59 18:59 Intake Total 2432.6 520.6 Output Total 980 180 Balance 1452.6 340.6 - Medications Medications: Current Medications Acetaminophen (Tylenol 650mg/20.3ml Solution Ud) 650 mg PO Q4H PRN PRN Reason: Temperature above 100.6 Last Admin: 03/25/18 17:23 Dose: 650 mg Acetylcysteine (Acetylcysteine 20%) 8 ml PO Q12H [facility] Stop: 03/29/18 07:16 Last Admin: 03/28/18 07:03 Dose: 8 ml Cholestyramine Resin (Prevalite) 4 gm PO Q8H [facility] Last Admin: 03/28/18 08:13 Dose: 4 gm Famotidine (Pepcid) 20 mg PO BID [facility] Last Admin: 03/28/18 10:51 Dose: 20 mg Norepinephrine Bitartrate 4 mg (/ Dextrose) 254 mls @ 15.24 mls/hr IV .[id number] PRN; Protocol; 4 MCG/MIN PRN Reason: TITRATE PER MD ORDER Last Admin: 03/28/18 12:52 Dose: 4.93 mcg/min, 18.8 mls/hr Vasopressin 40 units/ Sodium (Chloride) 40 mls @ 0.6 mls/hr IV .Q24H [facility]; 0.01 UNITS/MIN PRN Reason: Protocol Last Admin: 03/27/18 17:57 Dose: 0.04 units/min, 2.4 mls/hr Meropenem 500 mg/ Sodium (Chloride) 100 mls @ 100 mls/hr IVPB Q8 [facility] PRN Reason: Protocol Last Admin: 03/28/18 06:15 Dose: 100 mls/hr Vancomycin/Sodium Chloride (Vancomycin 1 Gm/Ns 200 Ml) 1 gm in 200 mls @ 166.7 mls/hr IVPB Q24H [facility] PRN Reason: Protocol Stop: 04/01/18 10:01 Last Admin: 03/28/18 10:51 Dose: 166.7 mls/hr Acyclovir 500 mg/ Sodium (Chloride) 100 mls @ 100 mls/hr IV Q12H [facility] PRN Reason: Protocol Last Admin: 03/28/18 04:02 Dose: 100 mls/hr Sodium Chloride (Sodium Chloride 0.9%) 1,000 mls @ 75 mls/hr IV .[id number] [facility] Last Admin: 03/28/18 04:35 Dose: Not Given Fluconazole (Diflucan Iv 100 Mg/50 Ml Ns) 50 mls @ 100 mls/hr IVPB Q24H [facility] PRN Reason: Protocol Last Admin: 03/27/18 18:23 Dose: 100 mls/hr Potassium Chloride (Potassium Chloride 20 Meq/100 Ml) 20 meq in 100 mls @ 50 mls/hr IVPB ONCE ONE Stop: 03/28/18 14:44 Levetiracetam 500 mg/ Dextrose 105 mls @ 420 mls/hr IVPB Q12H [facility] Last Admin: 03/28/18 09:18 Dose: 420 mls/hr Insulin Aspart (Novolog) 0 unit SC Q6H [facility] PRN Reason: Protocol Last Admin: 03/28/18 11:39 Dose: 2 unit Lactulose (Enulose) 20 gm PO BID PRN PRN Reason: Other Midodrine (Proamatine) 5 mg PO Q8H [facility] Last Admin: 03/28/18 05:07 Dose: 5 mg Propranolol HCl (Inderal) 10 mg PO DAILY [facility] Last Admin: 03/28/18 11:35 Dose: 10 mg Propylthiouracil (Propylthiouracil) 300 mg PO Q8H [facility] Stop: 03/30/18 12:01 Last Admin: 03/28/18 11:36 Dose: 300 mg - Labs Labs: 03/28/18 05:59 03/28/18 06:02 PT 34.9 SECONDS (9.7-12.2) H* 03/28/18 08:34 INR 3.2 03/28/18 08:34 Attending/Attestation - Attestation I have personally seen and examined this patient.: Yes I have fully participated in the care of the patient.: Yes I have reviewed all pertinent clinical information, including history, physical exam and plan: Yes Notes (Text): 03/28/18 13:03 72 year old female with newly diagnosed hyperthyroidism also with elevated lfts. Also gallstones, but normal CBD. No fever or positive blood cultures. Normal HIDA. Await LFT workup. Most likely etiology at this point may be due to underlying thyroid disease vs drug toxicity from methimazole. Would hold methimazole. Treatment of hyperthyroid per endocrinology. Check daily lfts. Check direct bili. Monitor CK.
[2018-03-28] MEDS: Vancomycin 1 gm/NS 200 ml 1 GM/200 ML BAG IVPB SCH (10:51)
[2018-03-28] MEDS: Acetaminophen 650mg/20.3ml solution UD PO PRN (14:47)
--- NOTE | 2018-03-28 15:21 | CP.PCM.PN ---
Subjective - Date & Time of Evaluation Date of Evaluation: 03/28/18 Time of Evaluation: 02:45 - Subjective Subjective: dictated Objective - Vital Signs/Intake and Output Vital Signs (last 24 hours): Temp Pulse Resp BP Pulse Ox 100.8 F H 82 23 104/55 L 97 03/28/18 14:47 03/28/18 12:52 03/28/18 12:52 03/28/18 12:52 03/28/18 12:52 Intake and Output: 03/28/18 03/28/18 06:59 18:59 Intake Total 2432.6 1194.2 Output Total 980 360 Balance 1452.6 834.2 - Medications Medications: Current Medications Acetaminophen (Tylenol 650mg/20.3ml Solution Ud) 650 mg PO Q4H PRN PRN Reason: Temperature above 100.6 Last Admin: 03/28/18 14:47 Dose: 650 mg Acetylcysteine (Acetylcysteine 20%) 8 ml PO Q12H [facility] Stop: 03/29/18 07:16 Last Admin: 03/28/18 07:03 Dose: 8 ml Cholestyramine Resin (Prevalite) 4 gm PO Q8H [facility] Last Admin: 03/28/18 08:13 Dose: 4 gm Famotidine (Pepcid) 20 mg PO BID [facility] Last Admin: 03/28/18 10:51 Dose: 20 mg Norepinephrine Bitartrate 4 mg (/ Dextrose) 254 mls @ 15.24 mls/hr IV .[id number] PRN; Protocol; 4 MCG/MIN PRN Reason: TITRATE PER MD ORDER Last Admin: 03/28/18 12:52 Dose: 4.93 mcg/min, 18.8 mls/hr Vasopressin 40 units/ Sodium (Chloride) 40 mls @ 0.6 mls/hr IV .Q24H [facility]; 0.01 UNITS/MIN PRN Reason: Protocol Last Admin: 03/27/18 17:57 Dose: 0.04 units/min, 2.4 mls/hr Meropenem 500 mg/ Sodium (Chloride) 100 mls @ 100 mls/hr IVPB Q8 [facility] PRN Reason: Protocol Last Admin: 03/28/18 14:43 Dose: 100 mls/hr Vancomycin/Sodium Chloride (Vancomycin 1 Gm/Ns 200 Ml) 1 gm in 200 mls @ 166.7 mls/hr IVPB Q24H [facility] PRN Reason: Protocol Stop: 04/01/18 10:01 Last Admin: 03/28/18 10:51 Dose: 166.7 mls/hr Acyclovir 500 mg/ Sodium (Chloride) 100 mls @ 100 mls/hr IV Q12H [facility] PRN Reason: Protocol Last Admin: 03/28/18 04:02 Dose: 100 mls/hr Sodium Chloride (Sodium Chloride 0.9%) 1,000 mls @ 75 mls/hr IV .[id number] [facility] Last Admin: 03/28/18 04:35 Dose: Not Given Fluconazole (Diflucan Iv 100 Mg/50 Ml Ns) 50 mls @ 100 mls/hr IVPB Q24H [facility] PRN Reason: Protocol Last Admin: 03/27/18 18:23 Dose: 100 mls/hr Levetiracetam 500 mg/ Dextrose 105 mls @ 420 mls/hr IVPB Q12H [facility] Last Admin: 03/28/18 09:18 Dose: 420 mls/hr Insulin Aspart (Novolog) 0 unit SC Q6H [facility] PRN Reason: Protocol Last Admin: 03/28/18 11:39 Dose: 2 unit Lactulose (Enulose) 20 gm PO BID PRN PRN Reason: Other Midodrine (Proamatine) 5 mg PO Q8H [facility] Last Admin: 03/28/18 14:43 Dose: 5 mg Propranolol HCl (Inderal) 10 mg PO DAILY [facility] Last Admin: 03/28/18 11:35 Dose: 10 mg Propylthiouracil (Propylthiouracil) 300 mg PO Q8H [facility] Stop: 03/30/18 12:01 Last Admin: 03/28/18 11:36 Dose: 300 mg - Labs Labs: 03/28/18 05:59 03/28/18 06:02 PT 34.9 SECONDS (9.7-12.2) H* 03/28/18 08:34 INR 3.2 03/28/18 08:34
--- NOTE | 2018-03-28 15:43 | CP.PCM.PN ---
Subjective - Date & Time of Evaluation Date of Evaluation: 03/28/18 Time of Evaluation: 15:42 - Subjective Subjective: Nephrology Consultation: Assessment: critical non-oliguric Acute Kidney Injury (N17.9) likely due to sepsis/shock, contrast : Resolved Hypokalemia, hypocalcemia active smoker hyperthyroidism abnormal LFT, cholelithiasis and ? cholecystitis, thyroid storm, acute respi failure s/p intubation septic shock, lactic acidosis coagulopathic, thrombocytopenia Rhabdomyolysis, hyperphosphatemia Plan No acute need for renal replacement therapy at this time, MICHELLE resolved Patient not on ACEI/ARB due to MICHELLE. maintain hemodynamics stable, avoid hypotension Monitor Input/Output, daily weights and renal function with basic metabolic panel continue with IVF as NS @ 75-100 ml/hr GI, Endocrine following dose of calcium gluconate 2 gm IVPB supplement lytes as needed Dose meds/antibiotics for improved GFR. Avoid fleets enema/magnesium based laxatives. Avoid nephrotoxins/NSAIDs Glycemic control Further work up/management as per primary team Thanks for allowing me to participate in care of your patient. Will follow patient with you. Please call if any Qs. d/w team and family Dr Sonu Hodge Office: [phone] Chief Complaint; unable HPI: Pt is a 72 F active smoker and recently diagnosed with hyperthyroidism came with loose stool and found to have abnormal LFT, cholelithiasis and ? cholecystitis, thyroid storm, respi failure and intubated, transferred to ICU also with septic shock, lactic acidosis and MICHELLE hence renal consulted no known OTC/herbal meds or NSAIDs had recent iodinated contrast exposure. Noted obvious episodes of low BP. ROS: unable. noted overnight events. UOP good Physical Examination: General Appearance: now in no acute respiratory distress, ill appearing intubated. Vitals reviewed and noted as below Head; Atraumatic, normocephalic ENT: no ulcers no thrush. Tongue is midline/dry. Oropharynx: no rash or ulcers.orally intubated EYES: Pupils are equal, round and reactive to light accommodation. Eye muscles and extraocular movement intact. Sclera is icteric. Neck; supple no lymphadenopathy, no thyromegaly or bruit Lungs: Normal respiratory rate/effort. Breath sounds bilateral equal and clear anteriorly Heart: Normal rate. s1s2 normal. No rub or gallop. Extremities: no edema. No varicose veins Neurological: Patient is not responsive Skin: Warm and dry. Normal turgor. No rash. Palpitation: Normal elasticity for age Abdomen: Abdomen is soft. Bowel sounds +. There is no abdominal tenderness, no guarding/rigidity no organomegaly Psych:unable MSK: no joint tenderness or swelling. Digits and nails normal, no deformity : kidney or bladder not palpable. has johnson Labs/imaging reviewed. Past medical history, past surgical history, family history, social history, allergy reviewed and noted as below Family hx: no hx of CKD. Rest non-contributory CPK 3135 Lactic acid 12 INR 3.1 UA SG 1.057 1 + protein renal imaging: unremarkable Objective - Vital Signs/Intake and Output Vital Signs (last 24 hours): Temp Pulse Resp BP Pulse Ox 100.8 F H 82 23 104/55 L 97 03/28/18 14:47 03/28/18 12:52 03/28/18 12:52 03/28/18 12:52 03/28/18 12:52 Intake and Output: 03/28/18 03/28/18 06:59 18:59 Intake Total 2432.6 1194.2 Output Total 980 360 Balance 1452.6 834.2 - Medications Medications: Current Medications Acetaminophen (Tylenol 650mg/20.3ml Solution Ud) 650 mg PO Q4H PRN PRN Reason: Temperature above 100.6 Last Admin: 03/28/18 14:47 Dose: 650 mg Acetylcysteine (Acetylcysteine 20%) 8 ml PO Q12H [facility] Stop: 03/29/18 07:16 Last Admin: 03/28/18 07:03 Dose: 8 ml Cholestyramine Resin (Prevalite) 4 gm PO Q8H [facility] Last Admin: 03/28/18 08:13 Dose: 4 gm Famotidine (Pepcid) 20 mg PO BID [facility] Last Admin: 03/28/18 10:51 Dose: 20 mg Norepinephrine Bitartrate 4 mg (/ Dextrose) 254 mls @ 15.24 mls/hr IV .[id number] PRN; Protocol; 4 MCG/MIN PRN Reason: TITRATE PER MD ORDER Last Admin: 03/28/18 12:52 Dose: 4.93 mcg/min, 18.8 mls/hr Vasopressin 40 units/ Sodium (Chloride) 40 mls @ 0.6 mls/hr IV .Q24H [facility]; 0.01 UNITS/MIN PRN Reason: Protocol Last Admin: 03/27/18 17:57 Dose: 0.04 units/min, 2.4 mls/hr Meropenem 500 mg/ Sodium (Chloride) 100 mls @ 100 mls/hr IVPB Q8 [facility] PRN Reason: Protocol Last Admin: 03/28/18 14:43 Dose: 100 mls/hr Vancomycin/Sodium Chloride (Vancomycin 1 Gm/Ns 200 Ml) 1 gm in 200 mls @ 166.7 mls/hr IVPB Q24H [facility] PRN Reason: Protocol Stop: 04/01/18 10:01 Last Admin: 03/28/18 10:51 Dose: 166.7 mls/hr Acyclovir 500 mg/ Sodium (Chloride) 100 mls @ 100 mls/hr IV Q12H [facility] PRN Reason: Protocol Last Admin: 03/28/18 04:02 Dose: 100 mls/hr Sodium Chloride (Sodium Chloride 0.9%) 1,000 mls @ 75 mls/hr IV .[id number] [facility] Last Admin: 03/28/18 04:35 Dose: Not Given Fluconazole (Diflucan Iv 100 Mg/50 Ml Ns) 50 mls @ 100 mls/hr IVPB Q24H [facility] PRN Reason: Protocol Last Admin: 03/27/18 18:23 Dose: 100 mls/hr Levetiracetam 500 mg/ Dextrose 105 mls @ 420 mls/hr IVPB Q12H [facility] Last Admin: 03/28/18 09:18 Dose: 420 mls/hr Insulin Aspart (Novolog) 0 unit SC Q6H [facility] PRN Reason: Protocol Last Admin: 03/28/18 11:39 Dose: 2 unit Lactulose (Enulose) 20 gm PO BID PRN PRN Reason: Other Midodrine (Proamatine) 5 mg PO Q8H [facility] Last Admin: 03/28/18 14:43 Dose: 5 mg Propranolol HCl (Inderal) 10 mg PO DAILY [facility] Last Admin: 03/28/18 11:35 Dose: 10 mg Propylthiouracil (Propylthiouracil) 300 mg PO Q8H [facility] Stop: 03/30/18 12:01 Last Admin: 03/28/18 11:36 Dose: 300 mg - Labs Labs: 03/28/18 05:59 03/28/18 06:02 PT 34.9 SECONDS (9.7-12.2) H* 03/28/18 08:34 INR 3.2 03/28/18 08:34
--- NOTE | 2018-03-28 17:23 | CARD ---
APPROVED REPORT EKG Measurement Heart [id number] <Conclusion> Sinus rhythm with premature supraventricular complexes Possible Left atrial enlargement Abnormal ECG
--- NOTE | 2018-03-28 17:57 | CP.CCUPN ---
"<Blanca Carmen - Last Filed: 03/28/18 17:40> CCU Subjective - Physician Review Subjective (Free Text): Patient seen and examined at bedside. No overnight events reported. Patient currently on Ventilator. GCS currently 3T. CCU Objective - Vital Signs / Intake & Output Vital Signs (Last 4 hours): Vital Signs Temp 03/28/18 14:47 100.8 F H Intake and Output (Last 8hrs): Intake & Output 03/28/18 03/28/18 03/28/18 06:59 14:59 22:59 Intake Total 1368.5 1194.2 Output Total 530 360 Balance 838.5 834.2 Intake: IV 133 97 Intake, IV Amount 875.5 727.2 Left Distal Port Internal 131.3 112.8 Jugular Left Proximal Port 725 600 Internal Jugular left distal port y 19.2 14.4 Tube Feeding 160 120 Other 200 250 Output: Urine 530 360 Urethral (Garcia) 530 360 Other: # Bowel Movements 1 1 - Physical Exam Head: Positive for: Atraumatic Pupils: Positive for: PERRL, Sluggish Conjunctiva: Positive for: Normal Mouth: Positive for: Dry Respiratory/Chest: Positive for: Clear to Auscultation Cardiovascular: Positive for: Regular Rate and Rhythm, Normal S1, S2. Negative for: Tachycardic Abdomen: Positive for: Normal Bowel Sounds. Negative for: Distention Neurological: Negative for: GCS=15 (GCS=3T) Skin: Positive for: Warm, Dry Psychiatric: Negative for: Alert, Oriented x 3 - Medications Active Medications: Active Medications Generic Name Dose Route Start Last Admin Trade Name Jonoq PRN Reason Stop Dose Admin Acetaminophen 650 mg 03/25/18 16:30 03/28/18 14:47 Tylenol 650mg/20.3ml Solution Ud PO 650 mg Q4H PRN Administration Temperature above 100.6 Acetylcysteine 8 ml 03/27/18 19:15 03/28/18 07:03 Acetylcysteine 20% PO 03/29/18 07:16 8 ml Q12H NEREYDA Administration Cholestyramine Resin 4 gm 03/26/18 08:15 03/28/18 16:22 Prevalite PO 4 gm Q8H NEREYDA Administration Famotidine 20 mg 03/25/18 10:00 03/28/18 10:51 Pepcid PO 20 mg BID NEREYDA Administration Norepinephrine Bitartrate 4 mg 254 mls @ 15.24 mls/hr 03/25/18 17:51 12:52 / Dextrose IV 4.93 mcg/min .[id number] PRN 18.8 mls/hr TITRATE PER MD ORDER Administration Protocol 4 MCG/MIN Vasopressin 40 units/ Sodium 40 mls @ 0.6 mls/hr 03/26/18 18:15 03/27/18 17: 57 Chloride IV 0.04 units/min .Q24H NEREYDA 2.4 mls/hr Protocol Administration 0.01 UNITS/MIN Meropenem 500 mg/ Sodium 100 mls @ 100 mls/hr 03/26/18 22:00 03/28/18 14:43 Chloride IVPB 100 mls/hr Q8 NEREYDA Administration Protocol Vancomycin/Sodium Chloride 1 gm in 200 mls @ 166.7 mls/hr 03/27/18 10:00 10:51 Vancomycin 1 Gm/Ns 200 Ml IVPB 04/01/18 10:01 166.7 mls/hr Q24H NEREYDA Administration Protocol Acyclovir 500 mg/ Sodium 100 mls @ 100 mls/hr 03/27/18 16:00 03/28/18 16:21 Chloride IV 100 mls/hr Q12H NEREYDA Administration Protocol Sodium Chloride 1,000 mls @ 75 mls/hr 03/27/18 15:15 03/28/18 04:35 Sodium Chloride 0.9% IV Not Given .[id number] NEREYDA Fluconazole 50 mls @ 100 mls/hr 03/27/18 18:00 03/27/18 18:23 Diflucan Iv 100 Mg/50 Ml Ns IVPB 100 mls/hr Q24H NEREYDA Administration Protocol Levetiracetam 500 mg/ Dextrose 105 mls @ 420 mls/hr 03/28/18 09:00 03/28/18 09:18 IVPB 420 mls/hr Q12H NEREYDA Administration Insulin Aspart 0 unit 03/27/18 12:00 03/28/18 11:39 Novolog SC 2 unit Q6H NEREYDA Administration Protocol Lactulose 20 gm 03/27/18 15:18 Enulose PO BID PRN Other Midodrine 5 mg 03/27/18 14:00 03/28/18 14:43 Proamatine PO 5 mg Q8H NEREYDA Administration Propranolol HCl 10 mg 03/26/18 10:00 03/28/18 11:35 Inderal PO 10 mg DAILY NEREYDA Administration Propylthiouracil 300 mg 03/27/18 12:00 03/28/18 11:36 Propylthiouracil PO 03/30/18 12:01 300 mg Q8H NEREYDA Administration - Patient Studies Lab Studies: Microbiology Studies 03/25/18 16:00 Blood Culture - Preliminary Blood-Venous NO GROWTH AFTER 3 DAYS 03/25/18 16:30 Blood Culture - Preliminary Blood-Venous NO GROWTH AFTER 3 DAYS 03/25/18 08:15 Stool Culture - Final Stool NO SALMONELLA, SHIGELLA OR CAMPYLOBACTER ISOLATED. 03/24/18 20:46 Blood Culture - Preliminary Blood NO GROWTH AFTER 3 DAYS 03/24/18 20:46 Blood Culture - Preliminary Blood NO GROWTH AFTER 3 DAYS 03/27/18 13:50 Gram Stain - Final Trachasp 03/25/18 16:34 Urine Culture - Final Urine,Catheterized Yeast Species 03/25/18 05:57 MRSA Culture (Admit) - Final Nose MRSA NOT DETECTED Lab Studies 03/28/18 03/28/18 03/28/18 Range/Units 11:30 11:13 11:13 WBC (4.8-10.8) K/uL RBC (3.80-5.20) Mil/uL Hgb (11.0-16.0) g/dL Hct (34.0-47.0) % MCV (81.0-99.0) fL MCH (27.0-31.0) pg MCHC (33.0-37.0) g/dL RDW (11.5-14.5) % Plt Count (130-400) K/uL MPV (7.2-11.7) fL Neut % (Auto) (50.0-75.0) % Lymph % (Auto) (20.0-40.0) % Kerr % (Auto) (0.0-10.0) % Eos % (Auto) (0.0-4.0) % Baso % (Auto) (0.0-2.0) % Neut # (Auto) (1.8-7.0) K/uL Lymph # (Auto) (1.0-4.3) K/uL Kerr # (Auto) (0.0-0.8) K/uL Eos # (Auto) (0.0-0.7) K/uL Baso # (Auto) (0.0-0.2) K/uL Neutrophils % (Manual) (50-75) % Band Neutrophils % (0-2) % Lymphocytes % (Manual) (20-40) % Monocytes % (Manual) (0-10) % Platelet Estimate (NORMAL) Large Platelets Polychromasia Hypochromasia (manual) Anisocytosis (manual) PT (9.7-12.2) SECONDS INR Puncture Site pCO2 (35-45) mm/Hg pO2 (80-100) mm/Hg HCO3 (21-28) mmol/L ABG pH (7.35-7.45) ABG Total CO2 (22-28) mmol/L ABG O2 Saturation (95-98) % ABG Base Excess (-2.0-3.0) mmol/L ABG Hemoglobin (11.7-17.4) g/dL ABG Carboxyhemoglobin (0.5-1.5) % POC ABG HHb (Measured) (0.0-5.0) % ABG Methemoglobin (0.0-3.0) % Jake Test A-a O2 Difference mm/Hg Respiratory Index Hgb O2 Saturation (95.0-98.0) % Vent Mode Mechanical Rate FiO2 % Tidal Volume PEEP Sodium (132-148) mmol/L Potassium (3.6-5.2) mmol/L Chloride (98-107) mmol/L Carbon Dioxide (22-30) mmol/L Anion Gap (10-20) BUN (7-17) mg/dL Creatinine (0.7-1.2) mg/dL Est GFR ( Amer) Est GFR (Non-Af Amer) POC Glucose (mg/dL) 187 H (65-110) mg/dL Random Glucose (65-105) mg/dL Hemoglobin A1c (4.2-6.5) % Lactic Acid (0.7-2.1) mmol/L Calcium (8.6-10.4) mg/dl Phosphorus (2.5-4.5) mg/dL Magnesium (1.6-2.3) mg/dL Total Bilirubin (0.2-1.3) mg/dL Direct Bilirubin 4.7 H (0.0-0.4) mg/dL GGT (8-78) U/L AST (14-36) U/L ALT (9-52) U/L Alkaline Phosphatase (38-126) U/L Total Creatine Kinase (30-135) U/L Total Protein (6.3-8.3) g/dL Albumin (3.5-5.0) g/dL Globulin (2.2-3.9) gm/dL Albumin/Globulin Ratio (1.0-2.1) Ceruloplasmin (18-53) mg/dL Procalcitonin (0.19-0.49) NG/ML Free T4 (0.78-2.19) ng/dL Thyroxine (T4) (5.5-11.0) ug/dL Free T3 pg/mL (2.77-5.27) pg/mL Total T3 (1.49-2.60) nmol/L Cortisol AM Sample (4.46-22.7) ug/dL Anti-Mitochondrial Ab (Negative) Thyroperoxidase Ab (<9) IU/mL Thyroglobulin Antibody (< OR = 1) IU/mL HSV Source Description HIV 1&2 Antibody Screen Negative (NEGATIVE) 03/28/18 03/28/18 03/28/18 Range/Units 11:13 08:34 08:32 WBC (4.8-10.8) K/uL RBC (3.80-5.20) Mil/uL Hgb (11.0-16.0) g/dL Hct (34.0-47.0) % MCV (81.0-99.0) fL MCH (27.0-31.0) pg MCHC (33.0-37.0) g/dL RDW (11.5-14.5) % Plt Count (130-400) K/uL MPV (7.2-11.7) fL Neut % (Auto) (50.0-75.0) % Lymph % (Auto) (20.0-40.0) % Kerr % (Auto) (0.0-10.0) % Eos % (Auto) (0.0-4.0) % Baso % (Auto) (0.0-2.0) % Neut # (Auto) (1.8-7.0) K/uL Lymph # (Auto) (1.0-4.3) K/uL Kerr # (Auto) (0.0-0.8) K/uL Eos # (Auto) (0.0-0.7) K/uL Baso # (Auto) (0.0-0.2) K/uL Neutrophils % (Manual) (50-75) % Band Neutrophils % (0-2) % Lymphocytes % (Manual) (20-40) % Monocytes % (Manual) (0-10) % Platelet Estimate (NORMAL) Large Platelets Polychromasia Hypochromasia (manual) Anisocytosis (manual) PT 34.9 H* (9.7-12.2) SECONDS INR 3.2 Puncture Site pCO2 (35-45) mm/Hg pO2 (80-100) mm/Hg HCO3 (21-28) mmol/L ABG pH (7.35-7.45) ABG Total CO2 (22-28) mmol/L ABG O2 Saturation (95-98) % ABG Base Excess (-2.0-3.0) mmol/L ABG Hemoglobin (11.7-17.4) g/dL ABG Carboxyhemoglobin (0.5-1.5) % POC ABG HHb (Measured) (0.0-5.0) % ABG Methemoglobin (0.0-3.0) % Jake Test A-a O2 Difference mm/Hg Respiratory Index Hgb O2 Saturation (95.0-98.0) % Vent Mode Mechanical Rate FiO2 % Tidal Volume PEEP Sodium (132-148) mmol/L Potassium (3.6-5.2) mmol/L Chloride (98-107) mmol/L Carbon Dioxide (22-30) mmol/L Anion Gap (10-20) BUN (7-17) mg/dL Creatinine (0.7-1.2) mg/dL Est GFR ( Amer) Est GFR (Non-Af Amer) POC Glucose (mg/dL) (65-110) mg/dL Random Glucose (65-105) mg/dL Hemoglobin A1c (4.2-6.5) % Lactic Acid (0.7-2.1) mmol/L Calcium (8.6-10.4) mg/dl Phosphorus (2.5-4.5) mg/dL Magnesium (1.6-2.3) mg/dL Total Bilirubin (0.2-1.3) mg/dL Direct Bilirubin (0.0-0.4) mg/dL GGT (8-78) U/L AST (14-36) U/L ALT (9-52) U/L Alkaline Phosphatase (38-126) U/L Total Creatine Kinase 431 H (30-135) U/L Total Protein (6.3-8.3) g/dL Albumin (3.5-5.0) g/dL Globulin (2.2-3.9) gm/dL Albumin/Globulin Ratio (1.0-2.1) Ceruloplasmin (18-53) mg/dL Procalcitonin 4.09 H (0.19-0.49) NG/ML Free T4 (0.78-2.19) ng/dL Thyroxine (T4) (5.5-11.0) ug/dL Free T3 pg/mL (2.77-5.27) pg/mL Total T3 (1.49-2.60) nmol/L Cortisol AM Sample (4.46-22.7) ug/dL Anti-Mitochondrial Ab (Negative) Thyroperoxidase Ab (<9) IU/mL Thyroglobulin Antibody (< OR = 1) IU/mL HSV Source Description HIV 1&2 Antibody Screen (NEGATIVE) 03/28/18 03/28/18 03/28/18 Range/Units 07:08 06:02 06:02 WBC (4.8-10.8) K/uL RBC (3.80-5.20) Mil/uL Hgb (11.0-16.0) g/dL Hct (34.0-47.0) % MCV (81.0-99.0) fL MCH (27.0-31.0) pg MCHC (33.0-37.0) g/dL RDW (11.5-14.5) % Plt Count (130-400) K/uL MPV (7.2-11.7) fL Neut % (Auto) (50.0-75.0) % Lymph % (Auto) (20.0-40.0) % Kerr % (Auto) (0.0-10.0) % Eos % (Auto) (0.0-4.0) % Baso % (Auto) (0.0-2.0) % Neut # (Auto) (1.8-7.0) K/uL Lymph # (Auto) (1.0-4.3) K/uL Kerr # (Auto) (0.0-0.8) K/uL Eos # (Auto) (0.0-0.7) K/uL Baso # (Auto) (0.0-0.2) K/uL Neutrophils % (Manual) (50-75) % Band Neutrophils % (0-2) % Lymphocytes % (Manual) (20-40) % Monocytes % (Manual) (0-10) % Platelet Estimate (NORMAL) Large Platelets Polychromasia Hypochromasia (manual) Anisocytosis (manual) PT (9.7-12.2) SECONDS INR Puncture Site pCO2 (35-45) mm/Hg pO2 (80-100) mm/Hg HCO3 (21-28) mmol/L ABG pH (7.35-7.45) ABG Total CO2 (22-28) mmol/L ABG O2 Saturation (95-98) % ABG Base Excess (-2.0-3.0) mmol/L ABG Hemoglobin (11.7-17.4) g/dL ABG Carboxyhemoglobin (0.5-1.5) % POC ABG HHb (Measured) (0.0-5.0) % ABG Methemoglobin (0.0-3.0) % Jake Test A-a O2 Difference mm/Hg Respiratory Index Hgb O2 Saturation (95.0-98.0) % Vent Mode Mechanical Rate FiO2 % Tidal Volume PEEP Sodium (132-148) mmol/L Potassium (3.6-5.2) mmol/L Chloride (98-107) mmol/L Carbon Dioxide (22-30) mmol/L Anion Gap (10-20) BUN (7-17) mg/dL Creatinine (0.7-1.2) mg/dL Est GFR ( Amer) Est GFR (Non-Af Amer) POC Glucose (mg/dL) (65-110) mg/dL Random Glucose (65-105) mg/dL Hemoglobin A1c 5.5 (4.2-6.5) % Lactic Acid (0.7-2.1) mmol/L Calcium (8.6-10.4) mg/dl Phosphorus (2.5-4.5) mg/dL Magnesium (1.6-2.3) mg/dL Total Bilirubin (0.2-1.3) mg/dL Direct Bilirubin (0.0-0.4) mg/dL GGT (8-78) U/L AST (14-36) U/L ALT (9-52) U/L Alkaline Phosphatase (38-126) U/L Total Creatine Kinase (30-135) U/L Total Protein (6.3-8.3) g/dL Albumin (3.5-5.0) g/dL Globulin (2.2-3.9) gm/dL Albumin/Globulin Ratio (1.0-2.1) Ceruloplasmin (18-53) mg/dL Procalcitonin (0.19-0.49) NG/ML Free T4 6.98 H (0.78-2.19) ng/dL Thyroxine (T4) (5.5-11.0) ug/dL Free T3 pg/mL (2.77-5.27) pg/mL Total T3 (1.49-2.60) nmol/L Cortisol AM Sample 118.0 H (4.46-22.7) ug/dL Anti-Mitochondrial Ab (Negative) Thyroperoxidase Ab (<9) IU/mL Thyroglobulin Antibody (< OR = 1) IU/mL HSV Source Description HIV 1&2 Antibody Screen (NEGATIVE) 03/28/18 03/28/18 03/28/18 Range/Units 06:02 06:02 05:59 WBC 11.3 H (4.8-10.8) K/uL RBC 3.74 L (3.80-5.20) Mil/uL Hgb 11.9 (11.0-16.0) g/dL Hct 34.9 (34.0-47.0) % MCV 93.3 (81.0-99.0) fL MCH 31.9 H (27.0-31.0) pg MCHC 34.3 (33.0-37.0) g/dL RDW 14.3 (11.5-14.5) % Plt Count 80 L D (130-400) K/uL MPV 10.6 (7.2-11.7) fL Neut % (Auto) 88.2 H (50.0-75.0) % Lymph % (Auto) 7.4 L (20.0-40.0) % Kerr % (Auto) 4.0 (0.0-10.0) % Eos % (Auto) 0.2 (0.0-4.0) % Baso % (Auto) 0.2 (0.0-2.0) % Neut # (Auto) 10.0 H (1.8-7.0) K/uL Lymph # (Auto) 0.8 L (1.0-4.3) K/uL Kerr # (Auto) 0.4 (0.0-0.8) K/uL Eos # (Auto) 0.0 (0.0-0.7) K/uL Baso # (Auto) 0.0 (0.0-0.2) K/uL Neutrophils % (Manual) 77 H (50-75) % Band Neutrophils % 16 H* (0-2) % Lymphocytes % (Manual) 5 L (20-40) % Monocytes % (Manual) 2 (0-10) % Platelet Estimate Decreased L (NORMAL) Large Platelets Present Polychromasia Slight Hypochromasia (manual) Slight Anisocytosis (manual) Slight PT (9.7-12.2) SECONDS INR Puncture Site pCO2 (35-45) mm/Hg pO2 (80-100) mm/Hg HCO3 (21-28) mmol/L ABG pH (7.35-7.45) ABG Total CO2 (22-28) mmol/L ABG O2 Saturation (95-98) % ABG Base Excess (-2.0-3.0) mmol/L ABG Hemoglobin (11.7-17.4) g/dL ABG Carboxyhemoglobin (0.5-1.5) % POC ABG HHb (Measured) (0.0-5.0) % ABG Methemoglobin (0.0-3.0) % Jake Test A-a O2 Difference mm/Hg Respiratory Index Hgb O2 Saturation (95.0-98.0) % Vent Mode Mechanical Rate FiO2 % Tidal Volume PEEP Sodium 139 (132-148) mmol/L Potassium 2.5 L* (3.6-5.2) mmol/L Chloride 91 L (98-107) mmol/L Carbon Dioxide 38 H (22-30) mmol/L Anion Gap 12 (10-20) BUN 50 H (7-17) mg/dL Creatinine 0.7 (0.7-1.2) mg/dL Est GFR ( Amer) > 60 Est GFR (Non-Af Amer) > 60 POC Glucose (mg/dL) (65-110) mg/dL Random Glucose 157 H (65-105) mg/dL Hemoglobin A1c (4.2-6.5) % Lactic Acid (0.7-2.1) mmol/L Calcium 6.8 L (8.6-10.4) mg/dl Phosphorus 2.1 L (2.5-4.5) mg/dL Magnesium 1.9 (1.6-2.3) mg/dL Total Bilirubin 6.2 H (0.2-1.3) mg/dL Direct Bilirubin (0.0-0.4) mg/dL GGT 50 (8-78) U/L AST 2488 H (14-36) U/L ALT 862 H D (9-52) U/L Alkaline Phosphatase 75 (38-126) U/L Total Creatine Kinase (30-135) U/L Total Protein 4.7 L (6.3-8.3) g/dL Albumin 2.0 L (3.5-5.0) g/dL Globulin 2.6 (2.2-3.9) gm/dL Albumin/Globulin Ratio 0.8 L (1.0-2.1) Ceruloplasmin (18-53) mg/dL Procalcitonin (0.19-0.49) NG/ML Free T4 (0.78-2.19) ng/dL Thyroxine (T4) 8.29 (5.5-11.0) ug/dL Free T3 pg/mL 14.40 H (2.77-5.27) pg/mL Total T3 2.44 (1.49-2.60) nmol/L Cortisol AM Sample (4.46-22.7) ug/dL Anti-Mitochondrial Ab (Negative) Thyroperoxidase Ab (<9) IU/mL Thyroglobulin Antibody (< OR = 1) IU/mL HSV Source Description Serum, vial pour-off HIV 1&2 Antibody Screen (NEGATIVE) 03/28/18 03/28/18 03/28/18 Range/Units 05:34 05:21 01:22 WBC (4.8-10.8) K/uL RBC (3.80-5.20) Mil/uL Hgb (11.0-16.0) g/dL Hct (34.0-47.0) % MCV (81.0-99.0) fL MCH (27.0-31.0) pg MCHC (33.0-37.0) g/dL RDW (11.5-14.5) % Plt Count (130-400) K/uL MPV (7.2-11.7) fL Neut % (Auto) (50.0-75.0) % Lymph % (Auto) (20.0-40.0) % Kerr % (Auto) (0.0-10.0) % Eos % (Auto) (0.0-4.0) % Baso % (Auto) (0.0-2.0) % Neut # (Auto) (1.8-7.0) K/uL Lymph # (Auto) (1.0-4.3) K/uL Kerr # (Auto) (0.0-0.8) K/uL Eos # (Auto) (0.0-0.7) K/uL Baso # (Auto) (0.0-0.2) K/uL Neutrophils % (Manual) (50-75) % Band Neutrophils % (0-2) % Lymphocytes % (Manual) (20-40) % Monocytes % (Manual) (0-10) % Platelet Estimate (NORMAL) Large Platelets Polychromasia Hypochromasia (manual) Anisocytosis (manual) PT (9.7-12.2) SECONDS INR Puncture Site Rr pCO2 43 (35-45) mm/Hg pO2 76 L (80-100) mm/Hg HCO3 37.1 H (21-28) mmol/L ABG pH 7.57 H (7.35-7.45) ABG Total CO2 40.7 H (22-28) mmol/L ABG O2 Saturation 98.7 H (95-98) % ABG Base Excess 15.7 H (-2.0-3.0) mmol/L ABG Hemoglobin 11.8 (11.7-17.4) g/dL ABG Carboxyhemoglobin 2.3 H (0.5-1.5) % POC ABG HHb (Measured) 1.3 (0.0-5.0) % ABG Methemoglobin 0.8 (0.0-3.0) % Jake Test Pos A-a O2 Difference 155.0 mm/Hg Respiratory Index 2.0 Hgb O2 Saturation 95.6 (95.0-98.0) % Vent Mode Prvc Mechanical Rate 16 FiO2 40.0 % Tidal Volume 400 PEEP 5 Sodium (132-148) mmol/L Potassium (3.6-5.2) mmol/L Chloride (98-107) mmol/L Carbon Dioxide (22-30) mmol/L Anion Gap (10-20) BUN (7-17) mg/dL Creatinine (0.7-1.2) mg/dL Est GFR ( Amer) Est GFR (Non-Af Amer) POC Glucose (mg/dL) 183 H 142 H (65-110) mg/dL Random Glucose (65-105) mg/dL Hemoglobin A1c (4.2-6.5) % Lactic Acid (0.7-2.1) mmol/L Calcium (8.6-10.4) mg/dl Phosphorus (2.5-4.5) mg/dL Magnesium (1.6-2.3) mg/dL Total Bilirubin (0.2-1.3) mg/dL Direct Bilirubin (0.0-0.4) mg/dL GGT (8-78) U/L AST (14-36) U/L ALT (9-52) U/L Alkaline Phosphatase (38-126) U/L Total Creatine Kinase (30-135) U/L Total Protein (6.3-8.3) g/dL Albumin (3.5-5.0) g/dL Globulin (2.2-3.9) gm/dL Albumin/Globulin Ratio (1.0-2.1) Ceruloplasmin (18-53) mg/dL Procalcitonin (0.19-0.49) NG/ML Free T4 (0.78-2.19) ng/dL Thyroxine (T4) (5.5-11.0) ug/dL Free T3 pg/mL (2.77-5.27) pg/mL Total T3 (1.49-2.60) nmol/L Cortisol AM Sample (4.46-22.7) ug/dL Anti-Mitochondrial Ab (Negative) Thyroperoxidase Ab (<9) IU/mL Thyroglobulin Antibody (< OR = 1) IU/mL HSV Source Description HIV 1&2 Antibody Screen (NEGATIVE) 03/27/18 03/27/18 03/27/18 Range/Units 20:10 17:49 11:52 WBC (4.8-10.8) K/uL RBC (3.80-5.20) Mil/uL Hgb (11.0-16.0) g/dL Hct (34.0-47.0) % MCV (81.0-99.0) fL MCH (27.0-31.0) pg MCHC (33.0-37.0) g/dL RDW (11.5-14.5) % Plt Count (130-400) K/uL MPV (7.2-11.7) fL Neut % (Auto) (50.0-75.0) % Lymph % (Auto) (20.0-40.0) % Kerr % (Auto) (0.0-10.0) % Eos % (Auto) (0.0-4.0) % Baso % (Auto) (0.0-2.0) % Neut # (Auto) (1.8-7.0) K/uL Lymph # (Auto) (1.0-4.3) K/uL Kerr # (Auto) (0.0-0.8) K/uL Eos # (Auto) (0.0-0.7) K/uL Baso # (Auto) (0.0-0.2) K/uL Neutrophils % (Manual) (50-75) % Band Neutrophils % (0-2) % Lymphocytes % (Manual) (20-40) % Monocytes % (Manual) (0-10) % Platelet Estimate (NORMAL) Large Platelets Polychromasia Hypochromasia (manual) Anisocytosis (manual) PT (9.7-12.2) SECONDS INR Puncture Site pCO2 (35-45) mm/Hg pO2 (80-100) mm/Hg HCO3 (21-28) mmol/L ABG pH (7.35-7.45) ABG Total CO2 (22-28) mmol/L ABG O2 Saturation (95-98) % ABG Base Excess (-2.0-3.0) mmol/L ABG Hemoglobin (11.7-17.4) g/dL ABG Carboxyhemoglobin (0.5-1.5) % POC ABG HHb (Measured) (0.0-5.0) % ABG Methemoglobin (0.0-3.0) % Jake Test A-a O2 Difference mm/Hg Respiratory Index Hgb O2 Saturation (95.0-98.0) % Vent Mode Mechanical Rate FiO2 % Tidal Volume PEEP Sodium (132-148) mmol/L Potassium (3.6-5.2) mmol/L Chloride (98-107) mmol/L Carbon Dioxide (22-30) mmol/L Anion Gap (10-20) BUN (7-17) mg/dL Creatinine (0.7-1.2) mg/dL Est GFR ( Amer) Est GFR (Non-Af Amer) POC Glucose (mg/dL) 152 H (65-110) mg/dL Random Glucose (65-105) mg/dL Hemoglobin A1c (4.2-6.5) % Lactic Acid 1.9 (0.7-2.1) mmol/L Calcium (8.6-10.4) mg/dl Phosphorus (2.5-4.5) mg/dL Magnesium (1.6-2.3) mg/dL Total Bilirubin (0.2-1.3) mg/dL Direct Bilirubin (0.0-0.4) mg/dL GGT (8-78) U/L AST (14-36) U/L ALT (9-52) U/L Alkaline Phosphatase (38-126) U/L Total Creatine Kinase (30-135) U/L Total Protein (6.3-8.3) g/dL Albumin (3.5-5.0) g/dL Globulin (2.2-3.9) gm/dL Albumin/Globulin Ratio (1.0-2.1) Ceruloplasmin 29 (18-53) mg/dL Procalcitonin (0.19-0.49) NG/ML Free T4 (0.78-2.19) ng/dL Thyroxine (T4) (5.5-11.0) ug/dL Free T3 pg/mL (2.77-5.27) pg/mL Total T3 (1.49-2.60) nmol/L Cortisol AM Sample (4.46-22.7) ug/dL Anti-Mitochondrial Ab Negative (Negative) Thyroperoxidase Ab (<9) IU/mL Thyroglobulin Antibody (< OR = 1) IU/mL HSV Source Description HIV 1&2 Antibody Screen (NEGATIVE) 03/26/18 03/25/18 03/25/18 Range/Units 06:14 20:42 20:42 WBC (4.8-10.8) K/uL RBC (3.80-5.20) Mil/uL Hgb (11.0-16.0) g/dL Hct (34.0-47.0) % MCV (81.0-99.0) fL MCH (27.0-31.0) pg MCHC (33.0-37.0) g/dL RDW (11.5-14.5) % Plt Count (130-400) K/uL MPV (7.2-11.7) fL Neut % (Auto) (50.0-75.0) % Lymph % (Auto) (20.0-40.0) % Kerr % (Auto) (0.0-10.0) % Eos % (Auto) (0.0-4.0) % Baso % (Auto) (0.0-2.0) % Neut # (Auto) (1.8-7.0) K/uL Lymph # (Auto) (1.0-4.3) K/uL Kerr # (Auto) (0.0-0.8) K/uL Eos # (Auto) (0.0-0.7) K/uL Baso # (Auto) (0.0-0.2) K/uL Neutrophils % (Manual) (50-75) % Band Neutrophils % (0-2) % Lymphocytes % (Manual) (20-40) % Monocytes % (Manual) (0-10) % Platelet Estimate (NORMAL) Large Platelets Polychromasia Hypochromasia (manual) Anisocytosis (manual) PT (9.7-12.2) SECONDS INR Puncture Site pCO2 (35-45) mm/Hg pO2 (80-100) mm/Hg HCO3 (21-28) mmol/L ABG pH (7.35-7.45) ABG Total CO2 (22-28) mmol/L ABG O2 Saturation (95-98) % ABG Base Excess (-2.0-3.0) mmol/L ABG Hemoglobin (11.7-17.4) g/dL ABG Carboxyhemoglobin (0.5-1.5) % POC ABG HHb (Measured) (0.0-5.0) % ABG Methemoglobin (0.0-3.0) % Jake Test A-a O2 Difference mm/Hg Respiratory Index Hgb O2 Saturation (95.0-98.0) % Vent Mode Mechanical Rate FiO2 % Tidal Volume PEEP Sodium (132-148) mmol/L Potassium (3.6-5.2) mmol/L Chloride (98-107) mmol/L Carbon Dioxide (22-30) mmol/L Anion Gap (10-20) BUN (7-17) mg/dL Creatinine (0.7-1.2) mg/dL Est GFR ( Amer) Est GFR (Non-Af Amer) POC Glucose (mg/dL) (65-110) mg/dL Random Glucose (65-105) mg/dL Hemoglobin A1c (4.2-6.5) % Lactic Acid (0.7-2.1) mmol/L Calcium (8.6-10.4) mg/dl Phosphorus (2.5-4.5) mg/dL Magnesium (1.6-2.3) mg/dL Total Bilirubin (0.2-1.3) mg/dL Direct Bilirubin (0.0-0.4) mg/dL GGT (8-78) U/L AST (14-36) U/L ALT (9-52) U/L Alkaline Phosphatase (38-126) U/L Total Creatine Kinase (30-135) U/L Total Protein (6.3-8.3) g/dL Albumin (3.5-5.0) g/dL Globulin (2.2-3.9) gm/dL Albumin/Globulin Ratio (1.0-2.1) Ceruloplasmin (18-53) mg/dL Procalcitonin (0.19-0.49) NG/ML Free T4 (0.78-2.19) ng/dL Thyroxine (T4) (5.5-11.0) ug/dL Free T3 pg/mL (2.77-5.27) pg/mL Total T3 (1.49-2.60) nmol/L Cortisol AM Sample (4.46-22.7) ug/dL Anti-Mitochondrial Ab (Negative) Thyroperoxidase Ab 77 H 77 H 79 H (<9) IU/mL Thyroglobulin Antibody <1 <1 (< OR = 1) IU/mL HSV Source Description HIV 1&2 Antibody Screen (NEGATIVE) Laboratory Results - last 24 hr 03/25/18 03/25/18 03/26/18 20:42 20:42 06:14 WBC RBC Hgb Hct MCV MCH MCHC RDW Plt Count MPV Neut % (Auto) Lymph % (Auto) Kerr % (Auto) Eos % (Auto) Baso % (Auto) Neut # (Auto) Lymph # (Auto) Kerr # (Auto) Eos # (Auto) Baso # (Auto) Neutrophils % (Manual) Band Neutrophils % Lymphocytes % (Manual) Monocytes % (Manual) Platelet Estimate Large Platelets Polychromasia Hypochromasia (manual) Anisocytosis (manual) PT INR Puncture Site pCO2 pO2 HCO3 ABG pH ABG Total CO2 ABG O2 Saturation ABG Base Excess ABG Hemoglobin ABG Carboxyhemoglobin POC ABG HHb (Measured) ABG Methemoglobin Jake Test A-a O2 Difference Respiratory Index Hgb O2 Saturation Vent Mode Mechanical Rate FiO2 Tidal Volume PEEP Sodium Potassium Chloride Carbon Dioxide Anion Gap BUN Creatinine Est GFR ( Amer) Est GFR (Non-Af Amer) POC Glucose (mg/dL) Random Glucose Hemoglobin A1c Lactic Acid Calcium Phosphorus Magnesium Total Bilirubin Direct Bilirubin GGT AST ALT Alkaline Phosphatase Total Creatine Kinase Total Protein Albumin Globulin Albumin/Globulin Ratio Ceruloplasmin Procalcitonin Free T4 Thyroxine (T4) Free T3 pg/mL Total T3 Cortisol AM Sample Anti-Mitochondrial Ab Thyroperoxidase Ab 79 H 77 H 77 H Thyroglobulin Antibody <1 <1 HSV Source Description HIV 1&2 Antibody Screen 03/27/18 03/27/18 03/27/18 11:52 17:49 20:10 WBC RBC Hgb Hct MCV MCH MCHC RDW Plt Count MPV Neut % (Auto) Lymph % (Auto) Kerr % (Auto) Eos % (Auto) Baso % (Auto) Neut # (Auto) Lymph # (Auto) Kerr # (Auto) Eos # (Auto) Baso # (Auto) Neutrophils % (Manual) Band Neutrophils % Lymphocytes % (Manual) Monocytes % (Manual) Platelet Estimate Large Platelets Polychromasia Hypochromasia (manual) Anisocytosis (manual) PT INR Puncture Site pCO2 pO2 HCO3 ABG pH ABG Total CO2 ABG O2 Saturation ABG Base Excess ABG Hemoglobin ABG Carboxyhemoglobin POC ABG HHb (Measured) ABG Methemoglobin Jake Test A-a O2 Difference Respiratory Index Hgb O2 Saturation Vent Mode Mechanical Rate FiO2 Tidal Volume PEEP Sodium Potassium Chloride Carbon Dioxide Anion Gap BUN Creatinine Est GFR ( Amer) Est GFR (Non-Af Amer) POC Glucose (mg/dL) 152 H Random Glucose Hemoglobin A1c Lactic Acid 1.9 Calcium Phosphorus Magnesium Total Bilirubin Direct Bilirubin GGT AST ALT Alkaline Phosphatase Total Creatine Kinase Total Protein Albumin Globulin Albumin/Globulin Ratio Ceruloplasmin 29 Procalcitonin Free T4 Thyroxine (T4) Free T3 pg/mL Total T3 Cortisol AM Sample Anti-Mitochondrial Ab Negative Thyroperoxidase Ab Thyroglobulin Antibody HSV Source Description HIV 1&2 Antibody Screen 03/28/18 03/28/18 03/28/18 01:22 05:21 05:34 WBC RBC Hgb Hct MCV MCH MCHC RDW Plt Count MPV Neut % (Auto) Lymph % (Auto) Kerr % (Auto) Eos % (Auto) Baso % (Auto) Neut # (Auto) Lymph # (Auto) Kerr # (Auto) Eos # (Auto) Baso # (Auto) Neutrophils % (Manual) Band Neutrophils % Lymphocytes % (Manual) Monocytes % (Manual) Platelet Estimate Large Platelets Polychromasia Hypochromasia (manual) Anisocytosis (manual) PT INR Puncture Site Rr pCO2 43 pO2 76 L HCO3 37.1 H ABG pH 7.57 H ABG Total CO2 40.7 H ABG O2 Saturation 98.7 H ABG Base Excess 15.7 H ABG Hemoglobin 11.8 ABG Carboxyhemoglobin 2.3 H POC ABG HHb (Measured) 1.3 ABG Methemoglobin 0.8 Jake Test Pos A-a O2 Difference 155.0 Respiratory Index 2.0 Hgb O2 Saturation 95.6 Vent Mode Prvc Mechanical Rate 16 FiO2 40.0 Tidal Volume 400 PEEP 5 Sodium Potassium Chloride Carbon Dioxide Anion Gap BUN Creatinine Est GFR ( Amer) Est GFR (Non-Af Amer) POC Glucose (mg/dL) 142 H 183 H Random Glucose Hemoglobin A1c Lactic Acid Calcium Phosphorus Magnesium Total Bilirubin Direct Bilirubin GGT AST ALT Alkaline Phosphatase Total Creatine Kinase Total Protein Albumin Globulin Albumin/Globulin Ratio Ceruloplasmin Procalcitonin Free T4 Thyroxine (T4) Free T3 pg/mL Total T3 Cortisol AM Sample Anti-Mitochondrial Ab Thyroperoxidase Ab Thyroglobulin Antibody HSV Source Description HIV 1&2 Antibody Screen 03/28/18 03/28/18 03/28/18 05:59 06:02 06:02 WBC 11.3 H RBC 3.74 L Hgb 11.9 Hct 34.9 MCV 93.3 MCH 31.9 H MCHC 34.3 RDW 14.3 Plt Count 80 L D MPV 10.6 Neut % (Auto) 88.2 H Lymph % (Auto) 7.4 L Kerr % (Auto) 4.0 Eos % (Auto) 0.2 Baso % (Auto) 0.2 Neut # (Auto) 10.0 H Lymph # (Auto) 0.8 L Kerr # (Auto) 0.4 Eos # (Auto) 0.0 Baso # (Auto) 0.0 Neutrophils % (Manual) 77 H Band Neutrophils % 16 H* Lymphocytes % (Manual) 5 L Monocytes % (Manual) 2 Platelet Estimate Decreased L Large Platelets Present Polychromasia Slight Hypochromasia (manual) Slight Anisocytosis (manual) Slight PT INR Puncture Site pCO2 pO2 HCO3 ABG pH ABG Total CO2 ABG O2 Saturation ABG Base Excess ABG Hemoglobin ABG Carboxyhemoglobin POC ABG HHb (Measured) ABG Methemoglobin Jake Test A-a O2 Difference Respiratory Index Hgb O2 Saturation Vent Mode Mechanical Rate FiO2 Tidal Volume PEEP Sodium 139 Potassium 2.5 L* Chloride 91 L Carbon Dioxide 38 H Anion Gap 12 BUN 50 H Creatinine 0.7 Est GFR ( Amer) > 60 Est GFR (Non-Af Amer) > 60 POC Glucose (mg/dL) Random Glucose 157 H Hemoglobin A1c Lactic Acid Calcium 6.8 L Phosphorus 2.1 L Magnesium 1.9 Total Bilirubin 6.2 H Direct Bilirubin GGT 50 AST 2488 H ALT 862 H D Alkaline Phosphatase 75 Total Creatine Kinase Total Protein 4.7 L Albumin 2.0 L Globulin 2.6 Albumin/Globulin Ratio 0.8 L Ceruloplasmin Procalcitonin Free T4 Thyroxine (T4) 8.29 Free T3 pg/mL 14.40 H Total T3 2.44 Cortisol AM Sample Anti-Mitochondrial Ab Thyroperoxidase Ab Thyroglobulin Antibody HSV Source Description Serum, vial pour-off HIV 1&2 Antibody Screen 03/28/18 03/28/18 03/28/18 06:02 06:02 07:08 WBC RBC Hgb Hct MCV MCH MCHC RDW Plt Count MPV Neut % (Auto) Lymph % (Auto) Kerr % (Auto) Eos % (Auto) Baso % (Auto) Neut # (Auto) Lymph # (Auto) Kerr # (Auto) Eos # (Auto) Baso # (Auto) Neutrophils % (Manual) Band Neutrophils % Lymphocytes % (Manual) Monocytes % (Manual) Platelet Estimate Large Platelets Polychromasia Hypochromasia (manual) Anisocytosis (manual) PT INR Puncture Site pCO2 pO2 HCO3 ABG pH ABG Total CO2 ABG O2 Saturation ABG Base Excess ABG Hemoglobin ABG Carboxyhemoglobin POC ABG HHb (Measured) ABG Methemoglobin Jake Test A-a O2 Difference Respiratory Index Hgb O2 Saturation Vent Mode Mechanical Rate FiO2 Tidal Volume PEEP Sodium Potassium Chloride Carbon Dioxide Anion Gap BUN Creatinine Est GFR ( Amer) Est GFR (Non-Af Amer) POC Glucose (mg/dL) Random Glucose Hemoglobin A1c 5.5 Lactic Acid Calcium Phosphorus Magnesium Total Bilirubin Direct Bilirubin GGT AST ALT Alkaline Phosphatase Total Creatine Kinase Total Protein Albumin Globulin Albumin/Globulin Ratio Ceruloplasmin Procalcitonin Free T4 6.98 H Thyroxine (T4) Free T3 pg/mL Total T3 Cortisol AM Sample 118.0 H Anti-Mitochondrial Ab Thyroperoxidase Ab Thyroglobulin Antibody HSV Source Description HIV 1&2 Antibody Screen 03/28/18 03/28/18 03/28/18 08:32 08:34 11:13 WBC RBC Hgb Hct MCV MCH MCHC RDW Plt Count MPV Neut % (Auto) Lymph % (Auto) Kerr % (Auto) Eos % (Auto) Baso % (Auto) Neut # (Auto) Lymph # (Auto) Kerr # (Auto) Eos # (Auto) Baso # (Auto) Neutrophils % (Manual) Band Neutrophils % Lymphocytes % (Manual) Monocytes % (Manual) Platelet Estimate Large Platelets Polychromasia Hypochromasia (manual) Anisocytosis (manual) PT 34.9 H* INR 3.2 Puncture Site pCO2 pO2 HCO3 ABG pH ABG Total CO2 ABG O2 Saturation ABG Base Excess ABG Hemoglobin ABG Carboxyhemoglobin POC ABG HHb (Measured) ABG Methemoglobin Jake Test A-a O2 Difference Respiratory Index Hgb O2 Saturation Vent Mode Mechanical Rate FiO2 Tidal Volume PEEP Sodium Potassium Chloride Carbon Dioxide Anion Gap BUN Creatinine Est GFR ( Amer) Est GFR (Non-Af Amer) POC Glucose (mg/dL) Random Glucose Hemoglobin A1c Lactic Acid Calcium Phosphorus Magnesium Total Bilirubin Direct Bilirubin GGT AST ALT Alkaline Phosphatase Total Creatine Kinase 431 H Total Protein Albumin Globulin Albumin/Globulin Ratio Ceruloplasmin Procalcitonin 4.09 H Free T4 Thyroxine (T4) Free T3 pg/mL Total T3 Cortisol AM Sample Anti-Mitochondrial Ab Thyroperoxidase Ab Thyroglobulin Antibody HSV Source Description HIV 1&2 Antibody Screen 03/28/18 03/28/18 03/28/18 11:13 11:13 11:30 WBC RBC Hgb Hct MCV MCH MCHC RDW Plt Count MPV Neut % (Auto) Lymph % (Auto) Kerr % (Auto) Eos % (Auto) Baso % (Auto) Neut # (Auto) Lymph # (Auto) Kerr # (Auto) Eos # (Auto) Baso # (Auto) Neutrophils % (Manual) Band Neutrophils % Lymphocytes % (Manual) Monocytes % (Manual) Platelet Estimate Large Platelets Polychromasia Hypochromasia (manual) Anisocytosis (manual) PT INR Puncture Site pCO2 pO2 HCO3 ABG pH ABG Total CO2 ABG O2 Saturation ABG Base Excess ABG Hemoglobin ABG Carboxyhemoglobin POC ABG HHb (Measured) ABG Methemoglobin Jake Test A-a O2 Difference Respiratory Index Hgb O2 Saturation Vent Mode Mechanical Rate FiO2 Tidal Volume PEEP Sodium Potassium Chloride Carbon Dioxide Anion Gap BUN Creatinine Est GFR ( Amer) Est GFR (Non-Af Amer) POC Glucose (mg/dL) 187 H Random Glucose Hemoglobin A1c Lactic Acid Calcium Phosphorus Magnesium Total Bilirubin Direct Bilirubin 4.7 H GGT AST ALT Alkaline Phosphatase Total Creatine Kinase Total Protein Albumin Globulin Albumin/Globulin Ratio Ceruloplasmin Procalcitonin Free T4 Thyroxine (T4) Free T3 pg/mL Total T3 Cortisol AM Sample Anti-Mitochondrial Ab Thyroperoxidase Ab Thyroglobulin Antibody HSV Source Description HIV 1&2 Antibody Screen Negative Fingerstick Blood Sugar Results: 187 Review of Systems - Review of Systems Systems not reviewed;Unavailable: Intubated Assessment/Plan - Assessment and Plan (Free Text) Assessment: 72 year old female with past medical history of recently diagnosed hyperthyroidism is admitted for intractable diarrhea, N/V likely 2/2 gastroenteritis vs. cholecystitis vs. hyperthyroidism. Abdominal US on admission showed cholelithiasis with gallbladder wall thickening and small amount of pericholecystic fluid which could represent acute cholecystitis. HIDA - negative, cystic duct patent. Patient admitted to ICU for respiratory distress likely 2/2 to thyroid storm. Patient intubated in the ICU and started on Levophed and Bicarb drip. Currently being treat for Thyroid Storm. Patient isn't on sedation with a GCS of 3T. Plan: Neuro: A: AMS GCS: 3T Sedation: None Head/Neck CTA: Negative for any occlusion or significant stenosis. EEG per Neuro shows CVA vs HSV Encephalitis Patient started on Acyclovir and Keppra Repat CT, EEG per Neuro Consider Lumbar Tap. Cardio A: tachycardia 2/2 to thyroid storm, Hypotension, Acute Systolic CHF ECHO showed EF of 20% Cont. Propanolol Levophed Drip PRN Cont. Vasopressin Drip Cont. Midodrine 5mg PO Q8H Cardiology on Consult, Recs appreciated. Pulm: Intubated PRVC 16RR, 40% Fi02, 400 TV, and 5 PEEP ABG (03/25) 7.22/32/49/14 ABG (03/26) 7.35/27/179/17.9 ABG (03/28): 7.57/43/76/37.1 Renal A: Metabolic Acidosis, Hypocalcemia, MICHELLE (Cr. from 0.6-1.1) Cont. Sodium Bicarb Drip GI A: Elevated LFTs (Worsening), Likely Shock liver vs Medication induced. . Diarrhea, HLD Monitor Pepcid BID Liquid Diet. Stool occult blodd - POSITIVE Consider GI Consult. C Diff Ordered - NEGATIVE Fecal Leukocytes ORdered - F/U Prevalite Started. Flagyl DC'd Endo: A: Hyperthyroidism, Thyroid Storm, Acute Thyroiditis TSH= <0.02, T4 - 12.9--> 6.98, Free T3= 6.42, Free T3 pg/ml > 22.80 Thyroperoxidase AB - Elevated, Follow up TIS Cortisol > 616. Tapazole 10mg TID- DISCONTINUED Cont. PTU 300mg Q8H Propanolol 10mg Daily Thyroid US: no nodules, cysts, or masses noted Endocrinology Consulted. Heme/Onc A: Thrombycytopenia Monitor plaletes and stop Lovenox if it continues to downtrend Monitor H&H and signs of bleeding. Consider HIT panel. ID: A: Febrile likely 2/2 to thyroid storm vs UTI, Band Neutrophils, Leukocytosis ( improving), Possible HSV Encephalitis Cont. Zosyn, Vancomycin, Meropenem Urine Culture Grew Yeast Species. Started on Diflucan per ID. PRN Tylenol F/U Pancultures | Lactate 12.1 from 11.4 yesterday. ProCal Elevated at 4.09 Solu-Cortef 100mg IV q8H started. Cont. Acyclovir F/U HSV HIV - NEGATIVE HEpatitis Panel - NEGATIVE C. Diff - NEGATIVE Proph Lovenox and Pepcid Patient seen and discussed with ATtending Blanca Carmen, PGY- 1 <Jose Duran S - Last Filed: 03/28/18 18:25> CCU Objective - Vital Signs / Intake & Output Vital Signs (Last 4 hours): Vital Signs Temp 03/28/18 14:47 100.8 F H Intake and Output (Last 8hrs): Intake & Output 03/28/18 03/28/18 03/28/18 06:59 14:59 22:59 Intake Total 1368.5 1194.2 Output Total 530 360 Balance 838.5 834.2 Intake: IV 133 97 Intake, IV Amount 875.5 727.2 Left Distal Port Internal 131.3 112.8 Jugular Left Proximal Port 725 600 Internal Jugular left distal port y 19.2 14.4 Tube Feeding 160 120 Other 200 250 Output: Urine 530 360 Urethral (Garcia) 530 360 Other: # Bowel Movements 1 1 - Medications Active Medications: Active Medications Generic Name Dose Route Start Last Admin Trade Name Freq PRN Reason Stop Dose Admin Acetaminophen 650 mg 03/25/18 16:30 03/28/18 14:47 Tylenol 650mg/20.3ml Solution Ud PO 650 mg Q4H PRN Administration Temperature above 100.6 Acetylcysteine 8 ml 03/27/18 19:15 03/28/18 07:03 Acetylcysteine 20% PO 03/29/18 07:16 8 ml Q12H NEREYDA Administration Cholestyramine Resin 4 gm 03/26/18 08:15 03/28/18 16:22 Prevalite PO 4 gm Q8H NEREYDA Administration Famotidine 20 mg 03/25/18 10:00 03/28/18 10:51 Pepcid PO 20 mg BID NEREYDA Administration Norepinephrine Bitartrate 4 mg 254 mls @ 15.24 mls/hr 03/25/18 17:51 12:52 / Dextrose IV 4.93 mcg/min .[id number] PRN 18.8 mls/hr TITRATE PER MD ORDER Administration Protocol 4 MCG/MIN Vasopressin 40 units/ Sodium 40 mls @ 0.6 mls/hr 03/26/18 18:15 03/27/18 17: 57 Chloride IV 0.04 units/min .Q24H NEREYDA 2.4 mls/hr Protocol Administration 0.01 UNITS/MIN Meropenem 500 mg/ Sodium 100 mls @ 100 mls/hr 03/26/18 22:00 03/28/18 14:43 Chloride IVPB 100 mls/hr Q8 NEREYDA Administration Protocol Vancomycin/Sodium Chloride 1 gm in 200 mls @ 166.7 mls/hr 03/27/18 10:00 10:51 Vancomycin 1 Gm/Ns 200 Ml IVPB 04/01/18 10:01 166.7 mls/hr Q24H NEREYDA Administration Protocol Acyclovir 500 mg/ Sodium 100 mls @ 100 mls/hr 03/27/18 16:00 03/28/18 16:21 Chloride IV 100 mls/hr Q12H NEREYDA Administration Protocol Sodium Chloride 1,000 mls @ 75 mls/hr 03/27/18 15:15 03/28/18 04:35 Sodium Chloride 0.9% IV Not Given .[id number] NEREYDA Fluconazole 50 mls @ 100 mls/hr 03/27/18 18:00 03/27/18 18:23 Diflucan Iv 100 Mg/50 Ml Ns IVPB 100 mls/hr Q24H NEREYDA Administration Protocol Levetiracetam 500 mg/ Dextrose 105 mls @ 420 mls/hr 03/28/18 09:00 03/28/18 09:18 IVPB 420 mls/hr Q12H NEREYDA Administration Insulin Aspart 0 unit 03/27/18 12:00 03/28/18 11:39 Novolog SC 2 unit Q6H NEREYDA Administration Protocol Lactulose 20 gm 03/27/18 15:18 Enulose PO BID PRN Other Midodrine 5 mg 03/27/18 14:00 03/28/18 14:43 Proamatine PO 5 mg Q8H NEREYDA Administration Propranolol HCl 10 mg 03/26/18 10:00 03/28/18 11:35 Inderal PO 10 mg DAILY NEREYDA Administration Propylthiouracil 300 mg 03/27/18 12:00 03/28/18 11:36 Propylthiouracil PO 03/30/18 12:01 300 mg Q8H NEREYDA Administration - Patient Studies Lab Studies: Microbiology Studies 03/25/18 16:00 Blood Culture - Preliminary Blood-Venous NO GROWTH AFTER 3 DAYS 03/25/18 16:30 Blood Culture - Preliminary Blood-Venous NO GROWTH AFTER 3 DAYS 03/25/18 08:15 Stool Culture - Final Stool NO SALMONELLA, SHIGELLA OR CAMPYLOBACTER ISOLATED. 03/24/18 20:46 Blood Culture - Preliminary Blood NO GROWTH AFTER 3 DAYS 03/24/18 20:46 Blood Culture - Preliminary Blood NO GROWTH AFTER 3 DAYS 03/27/18 13:50 Gram Stain - Final Trachasp 03/25/18 16:34 Urine Culture - Final Urine,Catheterized Yeast Species 03/25/18 05:57 MRSA Culture (Admit) - Final Nose MRSA NOT DETECTED Lab Studies 03/28/18 03/28/18 03/28/18 Range/Units 11:30 11:13 11:13 WBC (4.8-10.8) K/uL RBC (3.80-5.20) Mil/uL Hgb (11.0-16.0) g/dL Hct (34.0-47.0) % MCV (81.0-99.0) fL MCH (27.0-31.0) pg MCHC (33.0-37.0) g/dL RDW (11.5-14.5) % Plt Count (130-400) K/uL MPV (7.2-11.7) fL Neut % (Auto) (50.0-75.0) % Lymph % (Auto) (20.0-40.0) % Kerr % (Auto) (0.0-10.0) % Eos % (Auto) (0.0-4.0) % Baso % (Auto) (0.0-2.0) % Neut # (Auto) (1.8-7.0) K/uL Lymph # (Auto) (1.0-4.3) K/uL Kerr # (Auto) (0.0-0.8) K/uL Eos # (Auto) (0.0-0.7) K/uL Baso # (Auto) (0.0-0.2) K/uL Neutrophils % (Manual) (50-75) % Band Neutrophils % (0-2) % Lymphocytes % (Manual) (20-40) % Monocytes % (Manual) (0-10) % Platelet Estimate (NORMAL) Large Platelets Polychromasia Hypochromasia (manual) Anisocytosis (manual) PT (9.7-12.2) SECONDS INR Puncture Site pCO2 (35-45) mm/Hg pO2 (80-100) mm/Hg HCO3 (21-28) mmol/L ABG pH (7.35-7.45) ABG Total CO2 (22-28) mmol/L ABG O2 Saturation (95-98) % ABG Base Excess (-2.0-3.0) mmol/L ABG Hemoglobin (11.7-17.4) g/dL ABG Carboxyhemoglobin (0.5-1.5) % POC ABG HHb (Measured) (0.0-5.0) % ABG Methemoglobin (0.0-3.0) % Jake Test A-a O2 Difference mm/Hg Respiratory Index Hgb O2 Saturation (95.0-98.0) % Vent Mode Mechanical Rate FiO2 % Tidal Volume PEEP Sodium (132-148) mmol/L Potassium (3.6-5.2) mmol/L Chloride (98-107) mmol/L Carbon Dioxide (22-30) mmol/L Anion Gap (10-20) BUN (7-17) mg/dL Creatinine (0.7-1.2) mg/dL Est GFR ( Amer) Est GFR (Non-Af Amer) POC Glucose (mg/dL) 187 H (65-110) mg/dL Random Glucose (65-105) mg/dL Hemoglobin A1c (4.2-6.5) % Lactic Acid (0.7-2.1) mmol/L Calcium (8.6-10.4) mg/dl Phosphorus (2.5-4.5) mg/dL Magnesium (1.6-2.3) mg/dL Total Bilirubin (0.2-1.3) mg/dL Direct Bilirubin 4.7 H (0.0-0.4) mg/dL GGT (8-78) U/L AST (14-36) U/L ALT (9-52) U/L Alkaline Phosphatase (38-126) U/L Total Creatine Kinase (30-135) U/L Total Protein (6.3-8.3) g/dL Albumin (3.5-5.0) g/dL Globulin (2.2-3.9) gm/dL Albumin/Globulin Ratio (1.0-2.1) Ceruloplasmin (18-53) mg/dL Procalcitonin (0.19-0.49) NG/ML Free T4 (0.78-2.19) ng/dL Thyroxine (T4) (5.5-11.0) ug/dL Free T3 pg/mL (2.77-5.27) pg/mL Total T3 (1.49-2.60) nmol/L Cortisol AM Sample (4.46-22.7) ug/dL Anti-Mitochondrial Ab (Negative) Thyroperoxidase Ab (<9) IU/mL Thyroglobulin Antibody (< OR = 1) IU/mL HSV Source Description HIV 1&2 Antibody Screen Negative (NEGATIVE) 03/28/18 03/28/18 03/28/18 Range/Units 11:13 08:34 08:32 WBC (4.8-10.8) K/uL RBC (3.80-5.20) Mil/uL Hgb (11.0-16.0) g/dL Hct (34.0-47.0) % MCV (81.0-99.0) fL MCH (27.0-31.0) pg MCHC (33.0-37.0) g/dL RDW (11.5-14.5) % Plt Count (130-400) K/uL MPV (7.2-11.7) fL Neut % (Auto) (50.0-75.0) % Lymph % (Auto) (20.0-40.0) % Kerr % (Auto) (0.0-10.0) % Eos % (Auto) (0.0-4.0) % Baso % (Auto) (0.0-2.0) % Neut # (Auto) (1.8-7.0) K/uL Lymph # (Auto) (1.0-4.3) K/uL Kerr # (Auto) (0.0-0.8) K/uL Eos # (Auto) (0.0-0.7) K/uL Baso # (Auto) (0.0-0.2) K/uL Neutrophils % (Manual) (50-75) % Band Neutrophils % (0-2) % Lymphocytes % (Manual) (20-40) % Monocytes % (Manual) (0-10) % Platelet Estimate (NORMAL) Large Platelets Polychromasia Hypochromasia (manual) Anisocytosis (manual) PT 34.9 H* (9.7-12.2) SECONDS INR 3.2 Puncture Site pCO2 (35-45) mm/Hg pO2 (80-100) mm/Hg HCO3 (21-28) mmol/L ABG pH (7.35-7.45) ABG Total CO2 (22-28) mmol/L ABG O2 Saturation (95-98) % ABG Base Excess (-2.0-3.0) mmol/L ABG Hemoglobin (11.7-17.4) g/dL ABG Carboxyhemoglobin (0.5-1.5) % POC ABG HHb (Measured) (0.0-5.0) % ABG Methemoglobin (0.0-3.0) % Jake Test A-a O2 Difference mm/Hg Respiratory Index Hgb O2 Saturation (95.0-98.0) % Vent Mode Mechanical Rate FiO2 % Tidal Volume PEEP Sodium (132-148) mmol/L Potassium (3.6-5.2) mmol/L Chloride (98-107) mmol/L Carbon Dioxide (22-30) mmol/L Anion Gap (10-20) BUN (7-17) mg/dL Creatinine (0.7-1.2) mg/dL Est GFR ( Amer) Est GFR (Non-Af Amer) POC Glucose (mg/dL) (65-110) mg/dL Random Glucose (65-105) mg/dL Hemoglobin A1c (4.2-6.5) % Lactic Acid (0.7-2.1) mmol/L Calcium (8.6-10.4) mg/dl Phosphorus (2.5-4.5) mg/dL Magnesium (1.6-2.3) mg/dL Total Bilirubin (0.2-1.3) mg/dL Direct Bilirubin (0.0-0.4) mg/dL GGT (8-78) U/L AST (14-36) U/L ALT (9-52) U/L Alkaline Phosphatase (38-126) U/L Total Creatine Kinase 431 H (30-135) U/L Total Protein (6.3-8.3) g/dL Albumin (3.5-5.0) g/dL Globulin (2.2-3.9) gm/dL Albumin/Globulin Ratio (1.0-2.1) Ceruloplasmin (18-53) mg/dL Procalcitonin 4.09 H (0.19-0.49) NG/ML Free T4 (0.78-2.19) ng/dL Thyroxine (T4) (5.5-11.0) ug/dL Free T3 pg/mL (2.77-5.27) pg/mL Total T3 (1.49-2.60) nmol/L Cortisol AM Sample (4.46-22.7) ug/dL Anti-Mitochondrial Ab (Negative) Thyroperoxidase Ab (<9) IU/mL Thyroglobulin Antibody (< OR = 1) IU/mL HSV Source Description HIV 1&2 Antibody Screen (NEGATIVE) 03/28/18 03/28/18 03/28/18 Range/Units 07:08 06:02 06:02 WBC (4.8-10.8) K/uL RBC (3.80-5.20) Mil/uL Hgb (11.0-16.0) g/dL Hct (34.0-47.0) % MCV (81.0-99.0) fL MCH (27.0-31.0) pg MCHC (33.0-37.0) g/dL RDW (11.5-14.5) % Plt Count (130-400) K/uL MPV (7.2-11.7) fL Neut % (Auto) (50.0-75.0) % Lymph % (Auto) (20.0-40.0) % Kerr % (Auto) (0.0-10.0) % Eos % (Auto) (0.0-4.0) % Baso % (Auto) (0.0-2.0) % Neut # (Auto) (1.8-7.0) K/uL Lymph # (Auto) (1.0-4.3) K/uL Kerr # (Auto) (0.0-0.8) K/uL Eos # (Auto) (0.0-0.7) K/uL Baso # (Auto) (0.0-0.2) K/uL Neutrophils % (Manual) (50-75) % Band Neutrophils % (0-2) % Lymphocytes % (Manual) (20-40) % Monocytes % (Manual) (0-10) % Platelet Estimate (NORMAL) Large Platelets Polychromasia Hypochromasia (manual) Anisocytosis (manual) PT (9.7-12.2) SECONDS INR Puncture Site pCO2 (35-45) mm/Hg pO2 (80-100) mm/Hg HCO3 (21-28) mmol/L ABG pH (7.35-7.45) ABG Total CO2 (22-28) mmol/L ABG O2 Saturation (95-98) % ABG Base Excess (-2.0-3.0) mmol/L ABG Hemoglobin (11.7-17.4) g/dL ABG Carboxyhemoglobin (0.5-1.5) % POC ABG HHb (Measured) (0.0-5.0) % ABG Methemoglobin (0.0-3.0) % Jake Test A-a O2 Difference mm/Hg Respiratory Index Hgb O2 Saturation (95.0-98.0) % Vent Mode Mechanical Rate FiO2 % Tidal Volume PEEP Sodium (132-148) mmol/L Potassium (3.6-5.2) mmol/L Chloride (98-107) mmol/L Carbon Dioxide (22-30) mmol/L Anion Gap (10-20) BUN (7-17) mg/dL Creatinine (0.7-1.2) mg/dL Est GFR ( Amer) Est GFR (Non-Af Amer) POC Glucose (mg/dL) (65-110) mg/dL Random Glucose (65-105) mg/dL Hemoglobin A1c 5.5 (4.2-6.5) % Lactic Acid (0.7-2.1) mmol/L Calcium (8.6-10.4) mg/dl Phosphorus (2.5-4.5) mg/dL Magnesium (1.6-2.3) mg/dL Total Bilirubin (0.2-1.3) mg/dL Direct Bilirubin (0.0-0.4) mg/dL GGT (8-78) U/L AST (14-36) U/L ALT (9-52) U/L Alkaline Phosphatase (38-126) U/L Total Creatine Kinase (30-135) U/L Total Protein (6.3-8.3) g/dL Albumin (3.5-5.0) g/dL Globulin (2.2-3.9) gm/dL Albumin/Globulin Ratio (1.0-2.1) Ceruloplasmin (18-53) mg/dL Procalcitonin (0.19-0.49) NG/ML Free T4 6.98 H (0.78-2.19) ng/dL Thyroxine (T4) (5.5-11.0) ug/dL Free T3 pg/mL (2.77-5.27) pg/mL Total T3 (1.49-2.60) nmol/L Cortisol AM Sample 118.0 H (4.46-22.7) ug/dL Anti-Mitochondrial Ab (Negative) Thyroperoxidase Ab (<9) IU/mL Thyroglobulin Antibody (< OR = 1) IU/mL HSV Source Description HIV 1&2 Antibody Screen (NEGATIVE) 03/28/18 03/28/18 03/28/18 Range/Units 06:02 06:02 05:59 WBC 11.3 H (4.8-10.8) K/uL RBC 3.74 L (3.80-5.20) Mil/uL Hgb 11.9 (11.0-16.0) g/dL Hct 34.9 (34.0-47.0) % MCV 93.3 (81.0-99.0) fL MCH 31.9 H (27.0-31.0) pg MCHC 34.3 (33.0-37.0) g/dL RDW 14.3 (11.5-14.5) % Plt Count 80 L D (130-400) K/uL MPV 10.6 (7.2-11.7) fL Neut % (Auto) 88.2 H (50.0-75.0) % Lymph % (Auto) 7.4 L (20.0-40.0) % Kerr % (Auto) 4.0 (0.0-10.0) % Eos % (Auto) 0.2 (0.0-4.0) % Baso % (Auto) 0.2 (0.0-2.0) % Neut # (Auto) 10.0 H (1.8-7.0) K/uL Lymph # (Auto) 0.8 L (1.0-4.3) K/uL Kerr # (Auto) 0.4 (0.0-0.8) K/uL Eos # (Auto) 0.0 (0.0-0.7) K/uL Baso # (Auto) 0.0 (0.0-0.2) K/uL Neutrophils % (Manual) 77 H (50-75) % Band Neutrophils % 16 H* (0-2) % Lymphocytes % (Manual) 5 L (20-40) % Monocytes % (Manual) 2 (0-10) % Platelet Estimate Decreased L (NORMAL) Large Platelets Present Polychromasia Slight Hypochromasia (manual) Slight Anisocytosis (manual) Slight PT (9.7-12.2) SECONDS INR Puncture Site pCO2 (35-45) mm/Hg pO2 (80-100) mm/Hg HCO3 (21-28) mmol/L ABG pH (7.35-7.45) ABG Total CO2 (22-28) mmol/L ABG O2 Saturation (95-98) % ABG Base Excess (-2.0-3.0) mmol/L ABG Hemoglobin (11.7-17.4) g/dL ABG Carboxyhemoglobin (0.5-1.5) % POC ABG HHb (Measured) (0.0-5.0) % ABG Methemoglobin (0.0-3.0) % Jake Test A-a O2 Difference mm/Hg Respiratory Index Hgb O2 Saturation (95.0-98.0) % Vent Mode Mechanical Rate FiO2 % Tidal Volume PEEP Sodium 139 (132-148) mmol/L Potassium 2.5 L* (3.6-5.2) mmol/L Chloride 91 L (98-107) mmol/L Carbon Dioxide 38 H (22-30) mmol/L Anion Gap 12 (10-20) BUN 50 H (7-17) mg/dL Creatinine 0.7 (0.7-1.2) mg/dL Est GFR ( Amer) > 60 Est GFR (Non-Af Amer) > 60 POC Glucose (mg/dL) (65-110) mg/dL Random Glucose 157 H (65-105) mg/dL Hemoglobin A1c (4.2-6.5) % Lactic Acid (0.7-2.1) mmol/L Calcium 6.8 L (8.6-10.4) mg/dl Phosphorus 2.1 L (2.5-4.5) mg/dL Magnesium 1.9 (1.6-2.3) mg/dL Total Bilirubin 6.2 H (0.2-1.3) mg/dL Direct Bilirubin (0.0-0.4) mg/dL GGT 50 (8-78) U/L AST 2488 H (14-36) U/L ALT 862 H D (9-52) U/L Alkaline Phosphatase 75 (38-126) U/L Total Creatine Kinase (30-135) U/L Total Protein 4.7 L (6.3-8.3) g/dL Albumin 2.0 L (3.5-5.0) g/dL Globulin 2.6 (2.2-3.9) gm/dL Albumin/Globulin Ratio 0.8 L (1.0-2.1) Ceruloplasmin (18-53) mg/dL Procalcitonin (0.19-0.49) NG/ML Free T4 (0.78-2.19) ng/dL Thyroxine (T4) 8.29 (5.5-11.0) ug/dL Free T3 pg/mL 14.40 H (2.77-5.27) pg/mL Total T3 2.44 (1.49-2.60) nmol/L Cortisol AM Sample (4.46-22.7) ug/dL Anti-Mitochondrial Ab (Negative) Thyroperoxidase Ab (<9) IU/mL Thyroglobulin Antibody (< OR = 1) IU/mL HSV Source Description Serum, vial pour-off HIV 1&2 Antibody Screen (NEGATIVE) 03/28/18 03/28/18 03/28/18 Range/Units 05:34 05:21 01:22 WBC (4.8-10.8) K/uL RBC (3.80-5.20) Mil/uL Hgb (11.0-16.0) g/dL Hct (34.0-47.0) % MCV (81.0-99.0) fL MCH (27.0-31.0) pg MCHC (33.0-37.0) g/dL RDW (11.5-14.5) % Plt Count (130-400) K/uL MPV (7.2-11.7) fL Neut % (Auto) (50.0-75.0) % Lymph % (Auto) (20.0-40.0) % Kerr % (Auto) (0.0-10.0) % Eos % (Auto) (0.0-4.0) % Baso % (Auto) (0.0-2.0) % Neut # (Auto) (1.8-7.0) K/uL Lymph # (Auto) (1.0-4.3) K/uL Kerr # (Auto) (0.0-0.8) K/uL Eos # (Auto) (0.0-0.7) K/uL Baso # (Auto) (0.0-0.2) K/uL Neutrophils % (Manual) (50-75) % Band Neutrophils % (0-2) % Lymphocytes % (Manual) (20-40) % Monocytes % (Manual) (0-10) % Platelet Estimate (NORMAL) Large Platelets Polychromasia Hypochromasia (manual) Anisocytosis (manual) PT (9.7-12.2) SECONDS INR Puncture Site Rr pCO2 43 (35-45) mm/Hg pO2 76 L (80-100) mm/Hg HCO3 37.1 H (21-28) mmol/L ABG pH 7.57 H (7.35-7.45) ABG Total CO2 40.7 H (22-28) mmol/L ABG O2 Saturation 98.7 H (95-98) % ABG Base Excess 15.7 H (-2.0-3.0) mmol/L ABG Hemoglobin 11.8 (11.7-17.4) g/dL ABG Carboxyhemoglobin 2.3 H (0.5-1.5) % POC ABG HHb (Measured) 1.3 (0.0-5.0) % ABG Methemoglobin 0.8 (0.0-3.0) % Jake Test Pos A-a O2 Difference 155.0 mm/Hg Respiratory Index 2.0 Hgb O2 Saturation 95.6 (95.0-98.0) % Vent Mode Prvc Mechanical Rate 16 FiO2 40.0 % Tidal Volume 400 PEEP 5 Sodium (132-148) mmol/L Potassium (3.6-5.2) mmol/L Chloride (98-107) mmol/L Carbon Dioxide (22-30) mmol/L Anion Gap (10-20) BUN (7-17) mg/dL Creatinine (0.7-1.2) mg/dL Est GFR ( Amer) Est GFR (Non-Af Amer) POC Glucose (mg/dL) 183 H 142 H (65-110) mg/dL Random Glucose (65-105) mg/dL Hemoglobin A1c (4.2-6.5) % Lactic Acid (0.7-2.1) mmol/L Calcium (8.6-10.4) mg/dl Phosphorus (2.5-4.5) mg/dL Magnesium (1.6-2.3) mg/dL Total Bilirubin (0.2-1.3) mg/dL Direct Bilirubin (0.0-0.4) mg/dL GGT (8-78) U/L AST (14-36) U/L ALT (9-52) U/L Alkaline Phosphatase (38-126) U/L Total Creatine Kinase (30-135) U/L Total Protein (6.3-8.3) g/dL Albumin (3.5-5.0) g/dL Globulin (2.2-3.9) gm/dL Albumin/Globulin Ratio (1.0-2.1) Ceruloplasmin (18-53) mg/dL Procalcitonin (0.19-0.49) NG/ML Free T4 (0.78-2.19) ng/dL Thyroxine (T4) (5.5-11.0) ug/dL Free T3 pg/mL (2.77-5.27) pg/mL Total T3 (1.49-2.60) nmol/L Cortisol AM Sample (4.46-22.7) ug/dL Anti-Mitochondrial Ab (Negative) Thyroperoxidase Ab (<9) IU/mL Thyroglobulin Antibody (< OR = 1) IU/mL HSV Source Description HIV 1&2 Antibody Screen (NEGATIVE) 03/27/18 03/27/18 03/26/18 Range/Units 20:10 11:52 06:14 WBC (4.8-10.8) K/uL RBC (3.80-5.20) Mil/uL Hgb (11.0-16.0) g/dL Hct (34.0-47.0) % MCV (81.0-99.0) fL MCH (27.0-31.0) pg MCHC (33.0-37.0) g/dL RDW (11.5-14.5) % Plt Count (130-400) K/uL MPV (7.2-11.7) fL Neut % (Auto) (50.0-75.0) % Lymph % (Auto) (20.0-40.0) % Kerr % (Auto) (0.0-10.0) % Eos % (Auto) (0.0-4.0) % Baso % (Auto) (0.0-2.0) % Neut # (Auto) (1.8-7.0) K/uL Lymph # (Auto) (1.0-4.3) K/uL Kerr # (Auto) (0.0-0.8) K/uL Eos # (Auto) (0.0-0.7) K/uL Baso # (Auto) (0.0-0.2) K/uL Neutrophils % (Manual) (50-75) % Band Neutrophils % (0-2) % Lymphocytes % (Manual) (20-40) % Monocytes % (Manual) (0-10) % Platelet Estimate (NORMAL) Large Platelets Polychromasia Hypochromasia (manual) Anisocytosis (manual) PT (9.7-12.2) SECONDS INR Puncture Site pCO2 (35-45) mm/Hg pO2 (80-100) mm/Hg HCO3 (21-28) mmol/L ABG pH (7.35-7.45) ABG Total CO2 (22-28) mmol/L ABG O2 Saturation (95-98) % ABG Base Excess (-2.0-3.0) mmol/L ABG Hemoglobin (11.7-17.4) g/dL ABG Carboxyhemoglobin (0.5-1.5) % POC ABG HHb (Measured) (0.0-5.0) % ABG Methemoglobin (0.0-3.0) % Jake Test A-a O2 Difference mm/Hg Respiratory Index Hgb O2 Saturation (95.0-98.0) % Vent Mode Mechanical Rate FiO2 % Tidal Volume PEEP Sodium (132-148) mmol/L Potassium (3.6-5.2) mmol/L Chloride (98-107) mmol/L Carbon Dioxide (22-30) mmol/L Anion Gap (10-20) BUN (7-17) mg/dL Creatinine (0.7-1.2) mg/dL Est GFR ( Amer) Est GFR (Non-Af Amer) POC Glucose (mg/dL) (65-110) mg/dL Random Glucose (65-105) mg/dL Hemoglobin A1c (4.2-6.5) % Lactic Acid 1.9 (0.7-2.1) mmol/L Calcium (8.6-10.4) mg/dl Phosphorus (2.5-4.5) mg/dL Magnesium (1.6-2.3) mg/dL Total Bilirubin (0.2-1.3) mg/dL Direct Bilirubin (0.0-0.4) mg/dL GGT (8-78) U/L AST (14-36) U/L ALT (9-52) U/L Alkaline Phosphatase (38-126) U/L Total Creatine Kinase (30-135) U/L Total Protein (6.3-8.3) g/dL Albumin (3.5-5.0) g/dL Globulin (2.2-3.9) gm/dL Albumin/Globulin Ratio (1.0-2.1) Ceruloplasmin 29 (18-53) mg/dL Procalcitonin (0.19-0.49) NG/ML Free T4 (0.78-2.19) ng/dL Thyroxine (T4) (5.5-11.0) ug/dL Free T3 pg/mL (2.77-5.27) pg/mL Total T3 (1.49-2.60) nmol/L Cortisol AM Sample (4.46-22.7) ug/dL Anti-Mitochondrial Ab Negative (Negative) Thyroperoxidase Ab 77 H (<9) IU/mL Thyroglobulin Antibody (< OR = 1) IU/mL HSV Source Description HIV 1&2 Antibody Screen (NEGATIVE) 03/25/18 03/25/18 Range/Units 20:42 20:42 WBC (4.8-10.8) K/uL RBC (3.80-5.20) Mil/uL Hgb (11.0-16.0) g/dL Hct (34.0-47.0) % MCV (81.0-99.0) fL MCH (27.0-31.0) pg MCHC (33.0-37.0) g/dL RDW (11.5-14.5) % Plt Count (130-400) K/uL MPV (7.2-11.7) fL Neut % (Auto) (50.0-75.0) % Lymph % (Auto) (20.0-40.0) % Kerr % (Auto) (0.0-10.0) % Eos % (Auto) (0.0-4.0) % Baso % (Auto) (0.0-2.0) % Neut # (Auto) (1.8-7.0) K/uL Lymph # (Auto) (1.0-4.3) K/uL Kerr # (Auto) (0.0-0.8) K/uL Eos # (Auto) (0.0-0.7) K/uL Baso # (Auto) (0.0-0.2) K/uL Neutrophils % (Manual) (50-75) % Band Neutrophils % (0-2) % Lymphocytes % (Manual) (20-40) % Monocytes % (Manual) (0-10) % Platelet Estimate (NORMAL) Large Platelets Polychromasia Hypochromasia (manual) Anisocytosis (manual) PT (9.7-12.2) SECONDS INR Puncture Site pCO2 (35-45) mm/Hg pO2 (80-100) mm/Hg HCO3 (21-28) mmol/L ABG pH (7.35-7.45) ABG Total CO2 (22-28) mmol/L ABG O2 Saturation (95-98) % ABG Base Excess (-2.0-3.0) mmol/L ABG Hemoglobin (11.7-17.4) g/dL ABG Carboxyhemoglobin (0.5-1.5) % POC ABG HHb (Measured) (0.0-5.0) % ABG Methemoglobin (0.0-3.0) % Jake Test A-a O2 Difference mm/Hg Respiratory Index Hgb O2 Saturation (95.0-98.0) % Vent Mode Mechanical Rate FiO2 % Tidal Volume PEEP Sodium (132-148) mmol/L Potassium (3.6-5.2) mmol/L Chloride (98-107) mmol/L Carbon Dioxide (22-30) mmol/L Anion Gap (10-20) BUN (7-17) mg/dL Creatinine (0.7-1.2) mg/dL Est GFR ( Amer) Est GFR (Non-Af Amer) POC Glucose (mg/dL) (65-110) mg/dL Random Glucose (65-105) mg/dL Hemoglobin A1c (4.2-6.5) % Lactic Acid (0.7-2.1) mmol/L Calcium (8.6-10.4) mg/dl Phosphorus (2.5-4.5) mg/dL Magnesium (1.6-2.3) mg/dL Total Bilirubin (0.2-1.3) mg/dL Direct Bilirubin (0.0-0.4) mg/dL GGT (8-78) U/L AST (14-36) U/L ALT (9-52) U/L Alkaline Phosphatase (38-126) U/L Total Creatine Kinase (30-135) U/L Total Protein (6.3-8.3) g/dL Albumin (3.5-5.0) g/dL Globulin (2.2-3.9) gm/dL Albumin/Globulin Ratio (1.0-2.1) Ceruloplasmin (18-53) mg/dL Procalcitonin (0.19-0.49) NG/ML Free T4 (0.78-2.19) ng/dL Thyroxine (T4) (5.5-11.0) ug/dL Free T3 pg/mL (2.77-5.27) pg/mL Total T3 (1.49-2.60) nmol/L Cortisol AM Sample (4.46-22.7) ug/dL Anti-Mitochondrial Ab (Negative) Thyroperoxidase Ab 77 H 79 H (<9) IU/mL Thyroglobulin Antibody <1 <1 (< OR = 1) IU/mL HSV Source Description HIV 1&2 Antibody Screen (NEGATIVE) Laboratory Results - last 24 hr 03/25/18 03/25/18 03/26/18 20:42 20:42 06:14 WBC RBC Hgb Hct MCV MCH MCHC RDW Plt Count MPV Neut % (Auto) Lymph % (Auto) Kerr % (Auto) Eos % (Auto) Baso % (Auto) Neut # (Auto) Lymph # (Auto) Kerr # (Auto) Eos # (Auto) Baso # (Auto) Neutrophils % (Manual) Band Neutrophils % Lymphocytes % (Manual) Monocytes % (Manual) Platelet Estimate Large Platelets Polychromasia Hypochromasia (manual) Anisocytosis (manual) PT INR Puncture Site pCO2 pO2 HCO3 ABG pH ABG Total CO2 ABG O2 Saturation ABG Base Excess ABG Hemoglobin ABG Carboxyhemoglobin POC ABG HHb (Measured) ABG Methemoglobin Jake Test A-a O2 Difference Respiratory Index Hgb O2 Saturation Vent Mode Mechanical Rate FiO2 Tidal Volume PEEP Sodium Potassium Chloride Carbon Dioxide Anion Gap BUN Creatinine Est GFR ( Amer) Est GFR (Non-Af Amer) POC Glucose (mg/dL) Random Glucose Hemoglobin A1c Lactic Acid Calcium Phosphorus Magnesium Total Bilirubin Direct Bilirubin GGT AST ALT Alkaline Phosphatase Total Creatine Kinase Total Protein Albumin Globulin Albumin/Globulin Ratio Ceruloplasmin Procalcitonin Free T4 Thyroxine (T4) Free T3 pg/mL Total T3 Cortisol AM Sample Anti-Mitochondrial Ab Thyroperoxidase Ab 79 H 77 H 77 H Thyroglobulin Antibody <1 <1 HSV Source Description HIV 1&2 Antibody Screen 03/27/18 03/27/18 03/28/18 11:52 20:10 01:22 WBC RBC Hgb Hct MCV MCH MCHC RDW Plt Count MPV Neut % (Auto) Lymph % (Auto) Kerr % (Auto) Eos % (Auto) Baso % (Auto) Neut # (Auto) Lymph # (Auto) Kerr # (Auto) Eos # (Auto) Baso # (Auto) Neutrophils % (Manual) Band Neutrophils % Lymphocytes % (Manual) Monocytes % (Manual) Platelet Estimate Large Platelets Polychromasia Hypochromasia (manual) Anisocytosis (manual) PT INR Puncture Site pCO2 pO2 HCO3 ABG pH ABG Total CO2 ABG O2 Saturation ABG Base Excess ABG Hemoglobin ABG Carboxyhemoglobin POC ABG HHb (Measured) ABG Methemoglobin Jake Test A-a O2 Difference Respiratory Index Hgb O2 Saturation Vent Mode Mechanical Rate FiO2 Tidal Volume PEEP Sodium Potassium Chloride Carbon Dioxide Anion Gap BUN Creatinine Est GFR ( Amer) Est GFR (Non-Af Amer) POC Glucose (mg/dL) 142 H Random Glucose Hemoglobin A1c Lactic Acid 1.9 Calcium Phosphorus Magnesium Total Bilirubin Direct Bilirubin GGT AST ALT Alkaline Phosphatase Total Creatine Kinase Total Protein Albumin Globulin Albumin/Globulin Ratio Ceruloplasmin 29 Procalcitonin Free T4 Thyroxine (T4) Free T3 pg/mL Total T3 Cortisol AM Sample Anti-Mitochondrial Ab Negative Thyroperoxidase Ab Thyroglobulin Antibody HSV Source Description HIV 1&2 Antibody Screen 03/28/18 03/28/18 03/28/18 05:21 05:34 05:59 WBC 11.3 H RBC 3.74 L Hgb 11.9 Hct 34.9 MCV 93.3 MCH 31.9 H MCHC 34.3 RDW 14.3 Plt Count 80 L D MPV 10.6 Neut % (Auto) 88.2 H Lymph % (Auto) 7.4 L Kerr % (Auto) 4.0 Eos % (Auto) 0.2 Baso % (Auto) 0.2 Neut # (Auto) 10.0 H Lymph # (Auto) 0.8 L Kerr # (Auto) 0.4 Eos # (Auto) 0.0 Baso # (Auto) 0.0 Neutrophils % (Manual) 77 H Band Neutrophils % 16 H* Lymphocytes % (Manual) 5 L Monocytes % (Manual) 2 Platelet Estimate Decreased L Large Platelets Present Polychromasia Slight Hypochromasia (manual) Slight Anisocytosis (manual) Slight PT INR Puncture Site Rr pCO2 43 pO2 76 L HCO3 37.1 H ABG pH 7.57 H ABG Total CO2 40.7 H ABG O2 Saturation 98.7 H ABG Base Excess 15.7 H ABG Hemoglobin 11.8 ABG Carboxyhemoglobin 2.3 H POC ABG HHb (Measured) 1.3 ABG Methemoglobin 0.8 Jake Test Pos A-a O2 Difference 155.0 Respiratory Index 2.0 Hgb O2 Saturation 95.6 Vent Mode Prvc Mechanical Rate 16 FiO2 40.0 Tidal Volume 400 PEEP 5 Sodium Potassium Chloride Carbon Dioxide Anion Gap BUN Creatinine Est GFR ( Amer) Est GFR (Non-Af Amer) POC Glucose (mg/dL) 183 H Random Glucose Hemoglobin A1c Lactic Acid Calcium Phosphorus Magnesium Total Bilirubin Direct Bilirubin GGT AST ALT Alkaline Phosphatase Total Creatine Kinase Total Protein Albumin Globulin Albumin/Globulin Ratio Ceruloplasmin Procalcitonin Free T4 Thyroxine (T4) Free T3 pg/mL Total T3 Cortisol AM Sample Anti-Mitochondrial Ab Thyroperoxidase Ab Thyroglobulin Antibody HSV Source Description HIV 1&2 Antibody Screen 03/28/18 03/28/18 03/28/18 06:02 06:02 06:02 WBC RBC Hgb Hct MCV MCH MCHC RDW Plt Count MPV Neut % (Auto) Lymph % (Auto) Kerr % (Auto) Eos % (Auto) Baso % (Auto) Neut # (Auto) Lymph # (Auto) Kerr # (Auto) Eos # (Auto) Baso # (Auto) Neutrophils % (Manual) Band Neutrophils % Lymphocytes % (Manual) Monocytes % (Manual) Platelet Estimate Large Platelets Polychromasia Hypochromasia (manual) Anisocytosis (manual) PT INR Puncture Site pCO2 pO2 HCO3 ABG pH ABG Total CO2 ABG O2 Saturation ABG Base Excess ABG Hemoglobin ABG Carboxyhemoglobin POC ABG HHb (Measured) ABG Methemoglobin Jake Test A-a O2 Difference Respiratory Index Hgb O2 Saturation Vent Mode Mechanical Rate FiO2 Tidal Volume PEEP Sodium 139 Potassium 2.5 L* Chloride 91 L Carbon Dioxide 38 H Anion Gap 12 BUN 50 H Creatinine 0.7 Est GFR ( Amer) > 60 Est GFR (Non-Af Amer) > 60 POC Glucose (mg/dL) Random Glucose 157 H Hemoglobin A1c Lactic Acid Calcium 6.8 L Phosphorus 2.1 L Magnesium 1.9 Total Bilirubin 6.2 H Direct Bilirubin GGT 50 AST 2488 H ALT 862 H D Alkaline Phosphatase 75 Total Creatine Kinase Total Protein 4.7 L Albumin 2.0 L Globulin 2.6 Albumin/Globulin Ratio 0.8 L Ceruloplasmin Procalcitonin Free T4 Thyroxine (T4) 8.29 Free T3 pg/mL 14.40 H Total T3 2.44 Cortisol AM Sample 118.0 H Anti-Mitochondrial Ab Thyroperoxidase Ab Thyroglobulin Antibody HSV Source Description Serum, vial pour-off HIV 1&2 Antibody Screen 03/28/18 03/28/18 03/28/18 06:02 07:08 08:32 WBC RBC Hgb Hct MCV MCH MCHC RDW Plt Count MPV Neut % (Auto) Lymph % (Auto) Kerr % (Auto) Eos % (Auto) Baso % (Auto) Neut # (Auto) Lymph # (Auto) Kerr # (Auto) Eos # (Auto) Baso # (Auto) Neutrophils % (Manual) Band Neutrophils % Lymphocytes % (Manual) Monocytes % (Manual) Platelet Estimate Large Platelets Polychromasia Hypochromasia (manual) Anisocytosis (manual) PT INR Puncture Site pCO2 pO2 HCO3 ABG pH ABG Total CO2 ABG O2 Saturation ABG Base Excess ABG Hemoglobin ABG Carboxyhemoglobin POC ABG HHb (Measured) ABG Methemoglobin Jake Test A-a O2 Difference Respiratory Index Hgb O2 Saturation Vent Mode Mechanical Rate FiO2 Tidal Volume PEEP Sodium Potassium Chloride Carbon Dioxide Anion Gap BUN Creatinine Est GFR ( Amer) Est GFR (Non-Af Amer) POC Glucose (mg/dL) Random Glucose Hemoglobin A1c 5.5 Lactic Acid Calcium Phosphorus Magnesium Total Bilirubin Direct Bilirubin GGT AST ALT Alkaline Phosphatase Total Creatine Kinase 431 H Total Protein Albumin Globulin Albumin/Globulin Ratio Ceruloplasmin Procalcitonin Free T4 6.98 H Thyroxine (T4) Free T3 pg/mL Total T3 Cortisol AM Sample Anti-Mitochondrial Ab Thyroperoxidase Ab Thyroglobulin Antibody HSV Source Description HIV 1&2 Antibody Screen 03/28/18 03/28/18 03/28/18 08:34 11:13 11:13 WBC RBC Hgb Hct MCV MCH MCHC RDW Plt Count MPV Neut % (Auto) Lymph % (Auto) Kerr % (Auto) Eos % (Auto) Baso % (Auto) Neut # (Auto) Lymph # (Auto) Kerr # (Auto) Eos # (Auto) Baso # (Auto) Neutrophils % (Manual) Band Neutrophils % Lymphocytes % (Manual) Monocytes % (Manual) Platelet Estimate Large Platelets Polychromasia Hypochromasia (manual) Anisocytosis (manual) PT 34.9 H* INR 3.2 Puncture Site pCO2 pO2 HCO3 ABG pH ABG Total CO2 ABG O2 Saturation ABG Base Excess ABG Hemoglobin ABG Carboxyhemoglobin POC ABG HHb (Measured) ABG Methemoglobin Jake Test A-a O2 Difference Respiratory Index Hgb O2 Saturation Vent Mode Mechanical Rate FiO2 Tidal Volume PEEP Sodium Potassium Chloride Carbon Dioxide Anion Gap BUN Creatinine Est GFR ( Amer) Est GFR (Non-Af Amer) POC Glucose (mg/dL) Random Glucose Hemoglobin A1c Lactic Acid Calcium Phosphorus Magnesium Total Bilirubin Direct Bilirubin GGT AST ALT Alkaline Phosphatase Total Creatine Kinase Total Protein Albumin Globulin Albumin/Globulin Ratio Ceruloplasmin Procalcitonin 4.09 H Free T4 Thyroxine (T4) Free T3 pg/mL Total T3 Cortisol AM Sample Anti-Mitochondrial Ab Thyroperoxidase Ab Thyroglobulin Antibody HSV Source Description HIV 1&2 Antibody Screen Negative 03/28/18 03/28/18 11:13 11:30 WBC RBC Hgb Hct MCV MCH MCHC RDW Plt Count MPV Neut % (Auto) Lymph % (Auto) Kerr % (Auto) Eos % (Auto) Baso % (Auto) Neut # (Auto) Lymph # (Auto) Kerr # (Auto) Eos # (Auto) Baso # (Auto) Neutrophils % (Manual) Band Neutrophils % Lymphocytes % (Manual) Monocytes % (Manual) Platelet Estimate Large Platelets Polychromasia Hypochromasia (manual) Anisocytosis (manual) PT INR Puncture Site pCO2 pO2 HCO3 ABG pH ABG Total CO2 ABG O2 Saturation ABG Base Excess ABG Hemoglobin ABG Carboxyhemoglobin POC ABG HHb (Measured) ABG Methemoglobin Jake Test A-a O2 Difference Respiratory Index Hgb O2 Saturation Vent Mode Mechanical Rate FiO2 Tidal Volume PEEP Sodium Potassium Chloride Carbon Dioxide Anion Gap BUN Creatinine Est GFR ( Amer) Est GFR (Non-Af Amer) POC Glucose (mg/dL) 187 H Random Glucose Hemoglobin A1c Lactic Acid Calcium Phosphorus Magnesium Total Bilirubin Direct Bilirubin 4.7 H GGT AST ALT Alkaline Phosphatase Total Creatine Kinase Total Protein Albumin Globulin Albumin/Globulin Ratio Ceruloplasmin Procalcitonin Free T4 Thyroxine (T4) Free T3 pg/mL Total T3 Cortisol AM Sample Anti-Mitochondrial Ab Thyroperoxidase Ab Thyroglobulin Antibody HSV Source Description HIV 1&2 Antibody Screen Attending/Attestation - Attestation I have personally seen and examined this patient.: Yes I have fully participated in the care of the patient.: Yes I have reviewed all pertinent clinical information: Yes Notes (Text): 03/28/18 18:21 Patient seen and examined in the intensive care unit. Case discussed with all staff in the morning. Patient remained intubated on ventilatory support FiO2 increased to 50% no response to vocal commands CTA head negative for CVA continue PTU, propranolol, hydrocortisone Continue IV antibiotics per infectious disease On acyclovir started by neurology for possible encephalitis on EEG Continue present treatment for now case discussed with family at length"
[2018-03-28] MEDS: Fluconazole IV 100mg/50 ml NS 50 ML IVPB SCH (18:43)
--- NOTE | 2018-03-28 18:52 | CT ---
PROCEDURE: CT HEAD WITHOUT CONTRAST. HISTORY: follow up change of mental status COMPARISON: 03/26/2018 CT head TECHNIQUE: Axial computed tomography images were obtained through the head/brain without intravenous contrast. Radiation dose: Total exam DLP = 1276.00 mGy-cm. This CT exam was performed using one or more of the following dose reduction techniques: Automated exposure control, adjustment of the mA and/or kV according to patient size, and/or use of iterative reconstruction technique. FINDINGS: HEMORRHAGE: No intracranial hemorrhage. BRAIN: No mass effect or edema. No atrophy or chronic microvascular ischemic changes. VENTRICLES: Unremarkable. No hydrocephalus. CALVARIUM: Unremarkable. PARANASAL SINUSES: Unremarkable as visualized. No significant inflammatory changes. MASTOID AIR CELLS: Unremarkable as visualized. No inflammatory changes. OTHER FINDINGS: None. IMPRESSION: No acute intracranial abnormalities. No significant findings to account for the clinical presentation. No significant interval change compared to the prior examination(s).
[2018-03-28 20:48] LABS: THYROGLOBULIN 1360.2 ng/mL (2.8-40.9)
--- NOTE | 2018-03-28 23:59 | PN ---
DATE: 03/28/2018 SUBJECTIVE: She remains unresponsive, on the respirator. She had a CTA yesterday which was unremarkable. PHYSICAL EXAMINATION: VITAL SIGNS: T-max is 100.8, rectal, blood pressure 104/55, respirations are 23, pulse is 82. GENERAL: Unresponsive. HEENT: Head is atraumatic. NECK: Supple. She is on a respirator. LUNGS: Clear. HEART: S1, S2 regular. ABDOMEN: Soft, nontender. No guarding, no rigidity present. EXTREMITIES: Venodyne boots on. ASSESSMENT AND PLAN: At this time, she is on acyclovir. There was a repeat EEG done by the neurologist to confirm which we are waiting for. She does have active hyperthyroidism, acute respiratory failure and thyroid storm and still remains febrile with septic shock, lactic acidosis, rhabdomyolysis. We will continue present antibiotics. Has significant liver enzymes abnormality, could be related to the thyroid medications. Cholecystitis was ruled out. The patient still remains on vasopressors and prognosis remains guarded. We will follow. Micro [place], she had a urine culture which had yeast species and if she is stable, we may want to change the Garcia catheter tomorrow. We will check her status first and will follow tomorrow. Sammy Avendano MD
[2018-03-29] MEDS: (Novolog) Insulin Aspart, Recombinant 100 u/ml 10 ml vial SC SCH ×4 (00:11→17:57)
[2018-03-29] MEDS: Acyclovir 500 MG in Sodium Chloride 0.9% 100 ML IV SCH ×2 (03:38→15:20)
[2018-03-29] MEDS: Meropenem 500 MG in Sodium Chloride 0.9% 100 ML IVPB SCH ×3 (05:48→21:09)
[2018-03-29 05:51] LABS: ABG ALLEN TEST POS; ARTERIAL BLOOD GAS HCO3 33.2 mmol/L (21-28); ARTERIAL BLOOD GAS HEMOGLOBIN 11.9 g/dL (11.7-17.4); ARTERIAL BLOOD GAS O2 SAT 97.6 % (95-98); ARTERIAL BLOOD GAS PCO2 40 mm/Hg (35-45); ARTERIAL BLOOD GAS PH 7.54 (7.35-7.45); ARTERIAL BLOOD GAS PO2 71 mm/Hg (80-100); ARTERIAL BLOOD GAS TCO2 35.4 mmol/L (22-28)
[2018-03-29] MEDS: Acetylcysteine 20% Inhal Soln (4ml) PO SCH (06:48)
[2018-03-29 07:15] LABS: BASO % 0.2 % (0.0-2.0); EOS # 0.1 K/uL (0.0-0.7); EOS % 0.9 % (0.0-4.0); HEMOGLOBIN 12.3 g/dL (11.0-16.0); LYMPH # 1.7 K/uL (1.0-4.3); LYMPH % 13.3 % (20.0-40.0); MEAN CELL VOLUME 95.1 fL (81.0-99.0); MEAN CORPUSCULAR HEMOGLOBIN 31.7 pg (27.0-31.0); MEAN CORPUSCULAR HGB CONC 33.3 g/dL (33.0-37.0); MEAN PLATELET VOLUME 11.1 fL (7.2-11.7); MONO # 0.7 K/uL (0.0-0.8); MONO % 5.5 % (0.0-10.0); NEUT # 10.4 K/uL (1.8-7.0); NEUT % 80.1 % (50.0-75.0); NRBC % 0.2 % (0.0-2.0); RBC 3.9 Mil/uL (3.80-5.20); RED CELL DISTRIBUTION WIDTH 14.3 % (11.5-14.5)
--- NOTE | 2018-03-29 07:20 | CP.PCM.PN ---
Subjective - Date & Time of Evaluation Date of Evaluation: 03/28/18 Time of Evaluation: 19:30 - Subjective Subjective: patient has no clinical change. remains intubated. Objective - Vital Signs/Intake and Output Vital Signs (last 24 hours): Temp Pulse Resp BP Pulse Ox 99.5 F 70 22 122/55 L 94 L 03/29/18 00:00 03/29/18 07:00 03/29/18 07:00 03/29/18 06:11 03/29/18 07:00 Intake and Output: 03/29/18 03/29/18 06:59 18:59 Intake Total 2528.4 112.4 Output Total 490 Balance 2038.4 112.4 - Medications Medications: Current Medications Acetaminophen (Tylenol 650mg/20.3ml Solution Ud) 650 mg PO Q4H PRN PRN Reason: Temperature above 100.6 Last Admin: 03/28/18 14:47 Dose: 650 mg Cholestyramine Resin (Prevalite) 4 gm PO Q8H NEREYDA Last Admin: 03/28/18 23:48 Dose: 4 gm Famotidine (Pepcid) 20 mg PO BID [facility] Last Admin: 03/28/18 18:45 Dose: 20 mg Norepinephrine Bitartrate 4 mg (/ Dextrose) 254 mls @ 15.24 mls/hr IV .[id number] PRN; Protocol; 4 MCG/MIN PRN Reason: TITRATE PER MD ORDER Last Admin: 03/29/18 04:28 Dose: 4.93 mcg/min, 18.8 mls/hr Vasopressin 40 units/ Sodium (Chloride) 40 mls @ 0.6 mls/hr IV .Q24H NEREYDA; 0.01 UNITS/MIN PRN Reason: Protocol Last Admin: 03/28/18 22:59 Dose: 0.04 units/min, 2.4 mls/hr Meropenem 500 mg/ Sodium (Chloride) 100 mls @ 100 mls/hr IVPB Q8 NEREYDA PRN Reason: Protocol Last Admin: 03/29/18 05:48 Dose: 100 mls/hr Vancomycin/Sodium Chloride (Vancomycin 1 Gm/Ns 200 Ml) 1 gm in 200 mls @ 166.7 mls/hr IVPB Q24H [facility]YDA PRN Reason: Protocol Stop: 04/01/18 10:01 Last Admin: 03/28/18 10:51 Dose: 166.7 mls/hr Acyclovir 500 mg/ Sodium (Chloride) 100 mls @ 100 mls/hr IV Q12H [facility]YDA PRN Reason: Protocol Last Admin: 03/29/18 03:38 Dose: 100 mls/hr Sodium Chloride (Sodium Chloride 0.9%) 1,000 mls @ 75 mls/hr IV .[id number] [facility] Last Admin: 03/28/18 18:00 Dose: 75 mls/hr Fluconazole (Diflucan Iv 100 Mg/50 Ml Ns) 50 mls @ 100 mls/hr IVPB Q24H [facility] PRN Reason: Protocol Last Admin: 03/28/18 18:43 Dose: 100 mls/hr Levetiracetam 500 mg/ Dextrose 105 mls @ 420 mls/hr IVPB Q12H [facility] Last Admin: 03/28/18 21:03 Dose: 420 mls/hr Insulin Aspart (Novolog) 0 unit SC Q6H [facility] PRN Reason: Protocol Last Admin: 03/29/18 05:48 Dose: 3 unit Lactulose (Enulose) 20 gm PO BID PRN PRN Reason: Other Midodrine (Proamatine) 5 mg PO Q8H [facility] Last Admin: 03/29/18 05:50 Dose: 5 mg Propranolol HCl (Inderal) 10 mg PO DAILY [facility] Last Admin: 03/28/18 11:35 Dose: 10 mg Propylthiouracil (Propylthiouracil) 300 mg PO Q8H [facility] Stop: 03/30/18 12:01 Last Admin: 03/29/18 03:38 Dose: 300 mg - Labs Labs: 03/28/18 05:59 03/28/18 06:02 PT 34.9 SECONDS (9.7-12.2) H* 03/28/18 08:34 INR 3.2 03/28/18 08:34 - Constitutional Appears: Toxic - Head Exam Head Exam: NORMAL INSPECTION - Eye Exam Eye Exam: Normal appearance - ENT Exam ENT Exam: Mucous Membranes Moist - Neck Exam Neck Exam: Full ROM - Respiratory Exam Respiratory Exam: Decreased Breath Sounds - Cardiovascular Exam Cardiovascular Exam: REGULAR RHYTHM - GI/Abdominal Exam GI & Abdominal Exam: Normal Bowel Sounds - Rectal Exam Rectal Exam: Deferred - Extremities Exam Extremities Exam: Pedal Edema - Back Exam Back Exam: NORMAL INSPECTION - Neurological Exam Neurological Exam: Alert - Psychiatric Exam Psychiatric exam: Normal Affect - Skin Skin Exam: Normal Color Assessment and Plan (1) Cardiomyopathy Assessment & Plan: likely due to thyrotoxicosis. continue endocrine therapy. conservative management for cardiomyopathy. consdier weaning pressors. Status: Acute
--- NOTE | 2018-03-29 07:21 | CP.PCM.PN ---
Subjective - Date & Time of Evaluation Date of Evaluation: 03/29/18 Time of Evaluation: 07:10 - Subjective Subjective: remains intubated. Objective - Vital Signs/Intake and Output Vital Signs (last 24 hours): Temp Pulse Resp BP Pulse Ox 99.5 F 70 22 122/55 L 94 L 03/29/18 00:00 03/29/18 07:00 03/29/18 07:00 03/29/18 06:11 03/29/18 07:00 Intake and Output: 03/29/18 03/29/18 06:59 18:59 Intake Total 2528.4 112.4 Output Total 490 Balance 2038.4 112.4 - Medications Medications: Current Medications Acetaminophen (Tylenol 650mg/20.3ml Solution Ud) 650 mg PO Q4H PRN PRN Reason: Temperature above 100.6 Last Admin: 03/28/18 14:47 Dose: 650 mg Cholestyramine Resin (Prevalite) 4 gm PO Q8H [facility] Last Admin: 03/28/18 23:48 Dose: 4 gm Famotidine (Pepcid) 20 mg PO BID [facility] Last Admin: 03/28/18 18:45 Dose: 20 mg Norepinephrine Bitartrate 4 mg (/ Dextrose) 254 mls @ 15.24 mls/hr IV .[id number] PRN; Protocol; 4 MCG/MIN PRN Reason: TITRATE PER MD ORDER Last Admin: 03/29/18 04:28 Dose: 4.93 mcg/min, 18.8 mls/hr Vasopressin 40 units/ Sodium (Chloride) 40 mls @ 0.6 mls/hr IV .Q24H [facility]; 0.01 UNITS/MIN PRN Reason: Protocol Last Admin: 03/28/18 22:59 Dose: 0.04 units/min, 2.4 mls/hr Meropenem 500 mg/ Sodium (Chloride) 100 mls @ 100 mls/hr IVPB Q8 [facility] PRN Reason: Protocol Last Admin: 03/29/18 05:48 Dose: 100 mls/hr Vancomycin/Sodium Chloride (Vancomycin 1 Gm/Ns 200 Ml) 1 gm in 200 mls @ 166.7 mls/hr IVPB Q24H [facility] PRN Reason: Protocol Stop: 04/01/18 10:01 Last Admin: 03/28/18 10:51 Dose: 166.7 mls/hr Acyclovir 500 mg/ Sodium (Chloride) 100 mls @ 100 mls/hr IV Q12H [facility] PRN Reason: Protocol Last Admin: 03/29/18 03:38 Dose: 100 mls/hr Sodium Chloride (Sodium Chloride 0.9%) 1,000 mls @ 75 mls/hr IV .[id number] [facility] Last Admin: 03/28/18 18:00 Dose: 75 mls/hr Fluconazole (Diflucan Iv 100 Mg/50 Ml Ns) 50 mls @ 100 mls/hr IVPB Q24H [facility] PRN Reason: Protocol Last Admin: 03/28/18 18:43 Dose: 100 mls/hr Levetiracetam 500 mg/ Dextrose 105 mls @ 420 mls/hr IVPB Q12H [facility] Last Admin: 03/28/18 21:03 Dose: 420 mls/hr Insulin Aspart (Novolog) 0 unit SC Q6H [facility] PRN Reason: Protocol Last Admin: 03/29/18 05:48 Dose: 3 unit Lactulose (Enulose) 20 gm PO BID PRN PRN Reason: Other Midodrine (Proamatine) 5 mg PO Q8H [facility] Last Admin: 03/29/18 05:50 Dose: 5 mg Propranolol HCl (Inderal) 10 mg PO DAILY [facility] Last Admin: 03/28/18 11:35 Dose: 10 mg Propylthiouracil (Propylthiouracil) 300 mg PO Q8H [facility] Stop: 03/30/18 12:01 Last Admin: 03/29/18 03:38 Dose: 300 mg - Labs Labs: 03/28/18 05:59 03/28/18 06:02 PT 34.9 SECONDS (9.7-12.2) H* 03/28/18 08:34 INR 3.2 03/28/18 08:34 - Constitutional Appears: Non-toxic - Head Exam Head Exam: NORMAL INSPECTION - Eye Exam Eye Exam: Normal appearance - ENT Exam ENT Exam: Mucous Membranes Moist - Neck Exam Neck Exam: Full ROM - Respiratory Exam Respiratory Exam: Decreased Breath Sounds - Cardiovascular Exam Cardiovascular Exam: REGULAR RHYTHM - GI/Abdominal Exam GI & Abdominal Exam: Normal Bowel Sounds - Rectal Exam Rectal Exam: Deferred - Extremities Exam Extremities Exam: Pedal Edema - Back Exam Back Exam: NORMAL INSPECTION - Neurological Exam Neurological Exam: Alert - Psychiatric Exam Psychiatric exam: Normal Affect - Skin Skin Exam: Normal Color Assessment and Plan (1) Cardiomyopathy Assessment & Plan: medical therapy for cardiomyopathy. wean vasopressin Status: Acute
[2018-03-29 07:26] LABS: ALB/GLOB RATIO 0.7 (1.0-2.1); ALBUMIN 1.9 g/dL (3.5-5.0); ALT/SGPT 914 U/L (9-52); BLOOD UREA NITROGEN 45 mg/dL (7-17); CALCIUM 7.5 mg/dl (8.6-10.4); GFR AFRICAN-AMERICAN > 60; GFR NON-AFRICAN AMERICAN > 60
[2018-03-29 07:39] LABS: AST/SGOT 2139 U/L (14-36)
[2018-03-29 07:42] LABS: T4 6.18 ug/dL (5.5-11.0)
[2018-03-29 07:56] LABS: T3 1.76 nmol/L (1.49-2.60)
--- NOTE | 2018-03-29 08:25 | RAD ---
Chest x-ray single frontal view History: Ventilated. Comparison: 03/28/2018 Findings: Endotracheal to extending into the trachea approximately 1.5 centimeters above the kaila. NG tube extending into the stomach. Multiple overlying external wires. Additional lines and tubes in stable position. Biapical pleural thickening with upper lobe granulomatous changes. Diffuse increased interstitial lung markings which may represent underlying edema versus congestion versus infiltrate. Right hilar prominence. Patchy increased markings at the left lung base with question trace left pleural effusion. Mild cardiomegaly. Degenerative changes in the spine and shoulders. Impression: Endotracheal to extending into the trachea approximately 1.5 centimeters above the kaila. NG tube extending into the stomach. Multiple overlying external wires. Additional lines and tubes in stable position. Biapical pleural thickening with upper lobe granulomatous changes. Diffuse increased interstitial lung markings which may represent underlying edema versus congestion versus infiltrate. Right hilar prominence. Patchy increased markings at the left lung base with question trace left pleural effusion. Mild cardiomegaly.
--- NOTE | 2018-03-29 08:29 | CP.PCM.PN ---
Subjective - Date & Time of Evaluation Date of Evaluation: 03/29/18 Time of Evaluation: 08:10 - Subjective Subjective: Patient was seen and examined Family faithfully at bedside. I spoke with them again The repeat CT scan was negative for acute process. Patient remains intubated, non verbal, non responsive The patient's HR in the 70s to 80s NSR. The systolic BP is in the 110, she remains on two IV pressors at the moment Urine Outs was 1290 Tmax 100.8 Remains on abx Vancomycin and Meropenom. Blood cultures negative On Acylovir IV after EEGs suggest possibility of HSV encephalitis Elevated LFTs and T bili, either from shock liver or from the PTU. As mentioned previously this is a 72 year old female who was just recently diagnosed with hyperthyroidism outpatient. The patient came in on 03/24 with severe uncontrolled diarrhea. She was feeling weak, tired, and reportedly palpitations. She fell out of her bed as she was trying to go to bathroom. She has had weight loss for some time as well. There have been fevers as well. Her respirations and mental status became worse and she required intubation. Concern is she is in a thyroid crisis/storm possibly from an infection or possible from IV contrast. She also has a very low EF and hypokinesis Objective - Vital Signs/Intake and Output Vital Signs (last 24 hours): Temp Pulse Resp BP Pulse Ox 98.5 F 70 22 122/55 L 94 L 03/29/18 04:00 03/29/18 07:00 03/29/18 07:00 03/29/18 06:11 03/29/18 07:00 Intake and Output: 03/29/18 03/29/18 06:59 18:59 Intake Total 2528.4 112.4 Output Total 490 Balance 2038.4 112.4 - Medications Medications: Current Medications Acetaminophen (Tylenol 650mg/20.3ml Solution Ud) 650 mg PO Q4H PRN PRN Reason: Temperature above 100.6 Last Admin: 03/28/18 14:47 Dose: 650 mg Cholestyramine Resin (Prevalite) 4 gm PO Q8H [facility] Last Admin: 03/28/18 23:48 Dose: 4 gm Famotidine (Pepcid) 20 mg PO BID [facility] Last Admin: 03/28/18 18:45 Dose: 20 mg Norepinephrine Bitartrate 4 mg (/ Dextrose) 254 mls @ 15.24 mls/hr IV .[id number] PRN; Protocol; 4 MCG/MIN PRN Reason: TITRATE PER MD ORDER Last Admin: 03/29/18 04:28 Dose: 4.93 mcg/min, 18.8 mls/hr Vasopressin 40 units/ Sodium (Chloride) 40 mls @ 0.6 mls/hr IV .Q24H [facility]; 0.01 UNITS/MIN PRN Reason: Protocol Last Admin: 03/28/18 22:59 Dose: 0.04 units/min, 2.4 mls/hr Meropenem 500 mg/ Sodium (Chloride) 100 mls @ 100 mls/hr IVPB Q8 [facility] PRN Reason: Protocol Last Admin: 03/29/18 05:48 Dose: 100 mls/hr Vancomycin/Sodium Chloride (Vancomycin 1 Gm/Ns 200 Ml) 1 gm in 200 mls @ 166.7 mls/hr IVPB Q24H [facility] PRN Reason: Protocol Stop: 04/01/18 10:01 Last Admin: 03/28/18 10:51 Dose: 166.7 mls/hr Acyclovir 500 mg/ Sodium (Chloride) 100 mls @ 100 mls/hr IV Q12H [facility] PRN Reason: Protocol Last Admin: 03/29/18 03:38 Dose: 100 mls/hr Sodium Chloride (Sodium Chloride 0.9%) 1,000 mls @ 75 mls/hr IV .[id number] [facility] Last Admin: 03/28/18 18:00 Dose: 75 mls/hr Fluconazole (Diflucan Iv 100 Mg/50 Ml Ns) 50 mls @ 100 mls/hr IVPB Q24H [facility] PRN Reason: Protocol Last Admin: 03/28/18 18:43 Dose: 100 mls/hr Levetiracetam 500 mg/ Dextrose 105 mls @ 420 mls/hr IVPB Q12H [facility] Last Admin: 03/28/18 21:03 Dose: 420 mls/hr Insulin Aspart (Novolog) 0 unit SC Q6H [facility] PRN Reason: Protocol Last Admin: 03/29/18 05:48 Dose: 3 unit Lactulose (Enulose) 20 gm PO BID PRN PRN Reason: Other Midodrine (Proamatine) 5 mg PO Q8H [facility] Last Admin: 03/29/18 05:50 Dose: 5 mg Propranolol HCl (Inderal) 10 mg PO DAILY [facility] Last Admin: 03/28/18 11:35 Dose: 10 mg Propylthiouracil (Propylthiouracil) 300 mg PO Q8H [facility] Stop: 03/30/18 12:01 Last Admin: 03/29/18 03:38 Dose: 300 mg - Labs Labs: 03/29/18 07:04 03/29/18 07:01 PT 34.9 SECONDS (9.7-12.2) H* 03/28/18 08:34 INR 3.2 03/28/18 08:34 - Constitutional Appears: Toxic, Cachectic, Chronically Ill - Eye Exam Eye Exam: Scleral icterus Additional comments: Sceral icterus. Today the pupils were more resposnive to light - ENT Exam ENT Exam: Mucous Membranes Moist Additional comments: ET tube - Neck Exam Additional comments: Central line - Respiratory Exam Additional comments: Mechanical breath sounds - Cardiovascular Exam Cardiovascular Exam: REGULAR RHYTHM - Exam Additional comments: Garcia cather - urine cloudy yellow color - Extremities Exam Additional comments: Edema left hand and arm - Neurological Exam Neuro motor strength exam: Left Upper Extremity: 0, Right Upper Extremity: 0, Left Lower Extremity: 0, Right Lower Extremity: 0 - Skin Skin Exam: Pallor, Warm Assessment and Plan - Assessment and Plan (Free Text) Assessment: Overall: 72 year old female with past medical history of recently diagnosed hyperthyroidism is admitted for intractable diarrhea, shortly thereafter developed respiratory distress and required intubation. There have been fevers as high as 104 and also rapid tachycardia. An echo was done showing severe hypokinesis and also low EF of 20%. She is also being covered with IV abx in case of infection as well. As of 03/27 she was started on Acylovir for the potential of HSV infection Thyroid Storm, elevated temperatures, rapid HR - Likey from infection or from IV contrast 03/28: Remains on PTU. The IV hydrocortisone was DC yesterday The T4, FT3, T3 are decreasing. 03/28: HR is 70s to 80s now. NSR. Tmax 100.1 Hydrocortisone IV decreased to BID. The patient remains on PTU, Propranolol as well. 03/27: The T3 has decreased from 23 to 13. Yesterday started on PTU and Cholestramyine and Hydrocotizone IV. My concern is there maybe some underlying infection that has exacerbated her into thyroid crisis. Or this maybe have been made worse with IV contrast material. The blood cultures negative so far, the urine culture is being re- ordered. CXRAYs look ok, probably not pnuemonia 03/26: Tmax was 100.1, HR are in the 80s at this time NSR at this moment. She is now on Hydrocortisone 100 mg IV Q8, Cholestramynine 4 via NGT to slow T4 to T3 coversion. Remains on methimazole, considering her situation may have to change to PTU 03/25: Discussed with endocrinology. Has recieved IV hydrocortosone 250 mg Patient has been given IV hydrocortisone as well increased dose of tapazole to Q8. Continue the propranolol now, has also received IV propranol Per discussion with family members the patient has only been recently diagnosed with hyperthyroidism Will continue the following medications and adjust accordingly: methimazole 10 mg Q8H, Inderall 10 QD Respiratory failure, hypotention: Now intubated 03/26: The chest XRAY is clear. Appreciate cardiology evaluation. 03/25: Likley secondary from worsening cardiac function. EF is very low and hypokinesis seen on echo She now has a central line and also on pressor IV levophed as well as bicarb ggt. Altermental State: 03/29: Patient has had a total of 3 CT scans of the head - these have been negative. Our concern was for potential stroke, which so far probably is not but we will monitor. EEGs suggest possibility of viral HSV Encephalitis. She has been placed on IV Acylovir as well as IV Keppra. At somepoint maybe will need an LP to test for HSV. There are serum HSV pending at the moment. She also has high ammonia level from liver injury. Lactulose has been ordered. Hypoglycemia: 03/27: Overnight was high. The D10 was stopped overnight. Started on SSI this morning. Continue follow accucheks 03/26: Overnight has had several low accuchecks - likley she has burned up a lot of her energy stores (fat/glycogen) because of the hyperthyroidism. She was placed on D10 overnight @ 50 Potential sepsis, cultures pending 03/28: Per discussion with neurology, patient was started on Acyclovir last night and Keppra. Blood cultures remains negative. WBC stable, However there is still a large left shift 03/27: Discussed with ID yesterday. Abx changed to meropenom, aztreonam and also flagyl. Blood cultures negative so far. Urine culture has to be taken again. Her UA suggest possible UTI. She did have a HIDA scan and this was negative. 03/26: Last night was on Zosyn. The bands this morning increased to 16, added vancomycin x 1. Blood cultures negative 24 hrs, urine culture pending, the CXRAY does not have infiltrates Intractable diarrhea - secondary to hyperthyroidism Dehydration Dizziness Likely secondary to hyperthyroidism Elavated LFTs and Liver Lesion 03/29: On lactulose. Ammonia level is elevated. 03/28: The PTU maybe increasing her LFTs Incidental finding on CT. 5mm small lesion. If low risk of malignancy, no further follow up necessary. If high risk, recommended follow up CT or MRI in 6- 12 months. 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 Recommended follow up abdominal MRI in 6-12 months.
[2018-03-29] MEDS: Cholestyramine 4 gm/5.5 gm UD Packet PO SCH ×3 (09:00→23:44)
[2018-03-29] MEDS: Sodium Chloride 0.9% 1,000 ML IV SCH (09:49)
[2018-03-29] MEDS: Vancomycin 1 gm/NS 200 ml 1 GM/200 ML BAG IVPB SCH (09:51)
--- NOTE | 2018-03-29 12:08 | CP.PCM.PN ---
<Jeremias Ribeiro - Last Filed: 03/29/18 12:18> Subjective - Date & Time of Evaluation Date of Evaluation: 03/29/18 Time of Evaluation: 08:30 - Subjective Subjective: PGY4 GI Follow-up Pt seen and examined bedside still unconscious no overnight events no sig neurological improvements ROS: could not be conducted Objective - Vital Signs/Intake and Output Vital Signs (last 24 hours): Temp Pulse Resp BP Pulse Ox 97.6 F 70 22 115/49 L 95 03/29/18 08:00 03/29/18 09:11 03/29/18 09:11 03/29/18 09:11 03/29/18 09:11 Intake and Output: 03/29/18 03/29/18 06:59 18:59 Intake Total 2528.4 337.2 Output Total 490 90 Balance 2038.4 247.2 - Medications Medications: Current Medications Acetaminophen (Tylenol 650mg/20.3ml Solution Ud) 650 mg PO Q4H PRN PRN Reason: Temperature above 100.6 Last Admin: 03/28/18 14:47 Dose: 650 mg Cholestyramine Resin (Prevalite) 4 gm PO Q8H [facility] Last Admin: 03/29/18 09:00 Dose: 4 gm Famotidine (Pepcid) 20 mg PO BID [facility] Last Admin: 03/29/18 09:51 Dose: 20 mg Norepinephrine Bitartrate 4 mg (/ Dextrose) 254 mls @ 15.24 mls/hr IV .[id number] PRN; Protocol; 4 MCG/MIN PRN Reason: TITRATE PER MD ORDER Last Admin: 03/29/18 04:28 Dose: 4.93 mcg/min, 18.8 mls/hr Vasopressin 40 units/ Sodium (Chloride) 40 mls @ 0.6 mls/hr IV .Q24H [facility]; 0.01 UNITS/MIN PRN Reason: Protocol Last Admin: 03/28/18 22:59 Dose: 0.04 units/min, 2.4 mls/hr Meropenem 500 mg/ Sodium (Chloride) 100 mls @ 100 mls/hr IVPB Q8 [facility] PRN Reason: Protocol Last Admin: 03/29/18 05:48 Dose: 100 mls/hr Vancomycin/Sodium Chloride (Vancomycin 1 Gm/Ns 200 Ml) 1 gm in 200 mls @ 166.7 mls/hr IVPB Q24H [facility] PRN Reason: Protocol Stop: 04/01/18 10:01 Last Admin: 03/29/18 09:51 Dose: 166.7 mls/hr Acyclovir 500 mg/ Sodium (Chloride) 100 mls @ 100 mls/hr IV Q12H [facility] PRN Reason: Protocol Last Admin: 03/29/18 03:38 Dose: 100 mls/hr Sodium Chloride (Sodium Chloride 0.9%) 1,000 mls @ 75 mls/hr IV .[id number] [facility] Last Admin: 03/29/18 09:49 Dose: Not Given Fluconazole (Diflucan Iv 100 Mg/50 Ml Ns) 50 mls @ 100 mls/hr IVPB Q24H [facility] PRN Reason: Protocol Last Admin: 03/28/18 18:43 Dose: 100 mls/hr Levetiracetam 500 mg/ Dextrose 105 mls @ 420 mls/hr IVPB Q12H [facility] Last Admin: 03/29/18 09:50 Dose: 420 mls/hr Insulin Aspart (Novolog) 0 unit SC Q6H [facility] PRN Reason: Protocol Last Admin: 03/29/18 05:48 Dose: 3 unit Lactulose (Enulose) 20 gm PO BID [facility] Midodrine (Proamatine) 5 mg PO Q8H [facility] Last Admin: 03/29/18 05:50 Dose: 5 mg Propranolol HCl (Inderal) 10 mg PO DAILY [facility] Last Admin: 03/29/18 09:50 Dose: 10 mg Propylthiouracil (Propylthiouracil) 300 mg PO Q8H [facility] Stop: 03/30/18 12:01 Last Admin: 03/29/18 03:38 Dose: 300 mg - Labs Labs: 03/29/18 07:04 03/29/18 07:01 PT 34.9 SECONDS (9.7-12.2) H* 03/28/18 08:34 INR 3.2 03/28/18 08:34 - Constitutional Appears: No Acute Distress, Chronically Ill - Head Exam Head Exam: ATRAUMATIC, NORMOCEPHALIC - Eye Exam Eye Exam: Normal appearance - ENT Exam ENT Exam: Mucous Membranes Moist, Normal Exam - Neck Exam Neck Exam: Normal Inspection - Respiratory Exam Respiratory Exam: Clear to Ausculation Bilateral, NORMAL BREATHING PATTERN. absent: Prolonged Expiratory Phase, Rales, Rhonchi, Wheezes, Respiratory Distress - Cardiovascular Exam Cardiovascular Exam: REGULAR RHYTHM, +S1, +S2 - GI/Abdominal Exam GI & Abdominal Exam: Soft, Normal Bowel Sounds. absent: Distended, Firm, Guarding, Rigid, Tenderness, Organomegaly - Extremities Exam Extremities Exam: absent: Joint Swelling, Pedal Edema - Neurological Exam Neurological Exam: Altered - Psychiatric Exam Additional comments: cannot asses due to AMS - Skin Skin Exam: Dry, Intact, Warm Additional comments: juandiced Assessment and Plan - Assessment and Plan (Free Text) Assessment: Albina Jewell is a 72F w/ hx of hyperthyroidism who presented w/ near syncope, diarrhea, and abd pain. Pt was found to have acute cholecystitis on imaging. Course complicated with sepsis, rhabdomyolysis, thyroid storm, respiratory failure Elevate liver enzymes, etiology unknown, but likely multifactorial from thyroid storm, sepsis, mediation induced, rhabdo, r/o autoimmune and viral etiology; ddx : acute cholecystitis, rhabdomyolysis, medication induced Repiratory Failure Diarrhea, r/o infectous etiology, DDx: thyroid storm Thyroid storm MICHELLE Sepsis cholelithiasis Hypodense lesion in liver, small, inconclusive on CT Plan: -send for factor 2, 5, 8 levels -continue to monitor LFTs -recheck INR -Hep viral serologies neg -HIDA neg -CT revealed normal CBD, + cholelithiasis -continue IV Hydration -Abd U/s Revealed normal CBD -recommend CT liver, once medially stable, not urgent, to eval hepatic lesion -initial rise of LFts may be 2/2 thyroid meds -continue to monitor D/W Dr. Hall <Bib Hall - Last Filed: 03/29/18 18:25> Objective - Vital Signs/Intake and Output Vital Signs (last 24 hours): Temp Pulse Resp BP Pulse Ox 97.9 F 71 23 107/48 L 92 L 03/29/18 12:00 03/29/18 14:11 03/29/18 14:11 03/29/18 17:51 03/29/18 14:11 Intake and Output: 03/29/18 03/29/18 06:59 18:59 Intake Total 2528.4 1113.2 Output Total 490 320 Balance 2038.4 793.2 - Medications Medications: Current Medications Acetaminophen (Tylenol 650mg/20.3ml Solution Ud) 650 mg PO Q4H PRN PRN Reason: Temperature above 100.6 Last Admin: 03/28/18 14:47 Dose: 650 mg Cholestyramine Resin (Prevalite) 4 gm PO Q8H [facility] Last Admin: 03/29/18 15:20 Dose: 4 gm Famotidine (Pepcid) 20 mg PO BID [facility] Last Admin: 03/29/18 17:57 Dose: 20 mg Norepinephrine Bitartrate 4 mg (/ Dextrose) 254 mls @ 15.24 mls/hr IV .[id number] PRN; Protocol; 4 MCG/MIN PRN Reason: TITRATE PER MD ORDER Last Admin: 03/29/18 17:51 Dose: 3 mcg/min, 11.43 mls/hr Vasopressin 40 units/ Sodium (Chloride) 40 mls @ 0.6 mls/hr IV .Q24H [facility]; 0.01 UNITS/MIN PRN Reason: Protocol Last Admin: 03/29/18 17:49 Dose: 0.03 units/min, 1.8 mls/hr Meropenem 500 mg/ Sodium (Chloride) 100 mls @ 100 mls/hr IVPB Q8 [facility] PRN Reason: Protocol Last Admin: 03/29/18 14:45 Dose: 100 mls/hr Vancomycin/Sodium Chloride (Vancomycin 1 Gm/Ns 200 Ml) 1 gm in 200 mls @ 166.7 mls/hr IVPB Q24H [facility] PRN Reason: Protocol Stop: 04/01/18 10:01 Last Admin: 03/29/18 09:51 Dose: 166.7 mls/hr Acyclovir 500 mg/ Sodium (Chloride) 100 mls @ 100 mls/hr IV Q12H [facility] PRN Reason: Protocol Last Admin: 03/29/18 15:20 Dose: 100 mls/hr Sodium Chloride (Sodium Chloride 0.9%) 1,000 mls @ 75 mls/hr IV .[id number] [facility] Last Admin: 03/29/18 09:49 Dose: Not Given Fluconazole (Diflucan Iv 100 Mg/50 Ml Ns) 50 mls @ 100 mls/hr IVPB Q24H [facility] PRN Reason: Protocol Last Admin: 03/29/18 17:46 Dose: 100 mls/hr Levetiracetam 1,000 mg/ Sodium (Chloride) 110 mls @ 420 mls/hr IVPB Q12H [facility] Last Admin: 03/29/18 14:41 Dose: 420 mls/hr Propofol (Diprivan) 1,000 mg in 100 mls @ 1.742 mls/hr IV .Q24H PRN; Protocol; 5 MCG/KG/MIN PRN Reason: TITRATE PER MD ORDER Last Admin: 03/29/18 13:46 Dose: 5 mcg/kg/min, 1.742 mls/hr Insulin Aspart (Novolog) 0 unit SC Q6H [facility] PRN Reason: Protocol Last Admin: 03/29/18 17:57 Dose: Not Given Lactulose (Enulose) 20 gm PO BID [facility] Last Admin: 03/29/18 17:47 Dose: 20 gm Midodrine (Proamatine) 5 mg PO Q8H [facility] Last Admin: 03/29/18 14:44 Dose: 5 mg Phytonadione (Vitamin K Tab) 10 mg PO DAILY [facility] Stop: 03/31/18 10:01 Last Admin: 03/29/18 16:00 Dose: 10 mg Potassium Chloride (Potassium Chloride Oral Soln) 40 meq PO Q6H [facility] Stop: 03/29/18 21:31 Last Admin: 03/29/18 16:00 Dose: 40 meq Potassium Phos/Sodium Phos (Neutra-Phos) 1 pkt PO BID [facility] Last Admin: 03/29/18 17:59 Dose: 1 pkt Propranolol HCl (Inderal) 10 mg PO DAILY [facility] Last Admin: 03/29/18 09:50 Dose: 10 mg Propylthiouracil (Propylthiouracil) 300 mg PO Q8H [facility] Stop: 03/30/18 12:01 Last Admin: 03/29/18 12:47 Dose: 300 mg - Labs Labs: 03/29/18 07:04 03/29/18 07:01 PT 30.2 SECONDS (9.7-12.2) H* 03/29/18 15:20 INR 2.8 03/29/18 15:20 Attending/Attestation - Attestation I have personally seen and examined this patient.: Yes I have fully participated in the care of the patient.: Yes I have reviewed all pertinent clinical information, including history, physical exam and plan: Yes Notes (Text): 03/29/18 18:24 72 year old female with newly diagnosed hyperthyroidism also with elevated lfts. Also gallstones, but normal CBD. Most likely etiology at this point may be due to underlying thyroid disease vs drug toxicity from methimazole. Treatment of hyperthyroid per endocrinology. Check daily lfts.
--- NOTE | 2018-03-29 13:21 | PCM.EEG ---
Electroencephalogram Report - Electroencephalogram Report Procedure Date: 03/28/18 Interpretation: see below Impression: This is an abnormal EEG. There are frequent PLEDS, more frequent than last EEG, and occasional temporal sharps. There are also more prevalent triphasic waves in the left hemisphere.
--- NOTE | 2018-03-29 13:35 | CP.PCM.PN ---
Subjective - Date & Time of Evaluation Date of Evaluation: 03/29/18 Time of Evaluation: 13:30 - Subjective Subjective: Patient is off sedation, and has minimally reactive to light, with no gag, no corneals, no spontaneous movement. no clinical seizures noted. Pupils 2mm-1mm, no localizing to painful stimuli. Objective - Vital Signs/Intake and Output Vital Signs (last 24 hours): Temp Pulse Resp BP Pulse Ox 97.9 F 70 22 115/49 L 95 03/29/18 12:00 03/29/18 09:11 03/29/18 09:11 03/29/18 09:11 03/29/18 09:11 Intake and Output: 03/29/18 03/29/18 06:59 18:59 Intake Total 2528.4 337.2 Output Total 490 90 Balance 2038.4 247.2 - Medications Medications: Current Medications Acetaminophen (Tylenol 650mg/20.3ml Solution Ud) 650 mg PO Q4H PRN PRN Reason: Temperature above 100.6 Last Admin: 03/28/18 14:47 Dose: 650 mg Cholestyramine Resin (Prevalite) 4 gm PO Q8H [facility] Last Admin: 03/29/18 09:00 Dose: 4 gm Famotidine (Pepcid) 20 mg PO BID [facility] Last Admin: 03/29/18 09:51 Dose: 20 mg Norepinephrine Bitartrate 4 mg (/ Dextrose) 254 mls @ 15.24 mls/hr IV .[id number] PRN; Protocol; 4 MCG/MIN PRN Reason: TITRATE PER MD ORDER Last Admin: 03/29/18 04:28 Dose: 4.93 mcg/min, 18.8 mls/hr Vasopressin 40 units/ Sodium (Chloride) 40 mls @ 0.6 mls/hr IV .Q24H NEREYDA; 0.01 UNITS/MIN PRN Reason: Protocol Last Admin: 03/28/18 22:59 Dose: 0.04 units/min, 2.4 mls/hr Meropenem 500 mg/ Sodium (Chloride) 100 mls @ 100 mls/hr IVPB Q8 N[facility]YDA PRN Reason: Protocol Last Admin: 03/29/18 05:48 Dose: 100 mls/hr Vancomycin/Sodium Chloride (Vancomycin 1 Gm/Ns 200 Ml) 1 gm in 200 mls @ 166.7 mls/hr IVPB Q24H [facility] PRN Reason: Protocol Stop: 04/01/18 10:01 Last Admin: 03/29/18 09:51 Dose: 166.7 mls/hr Acyclovir 500 mg/ Sodium (Chloride) 100 mls @ 100 mls/hr IV Q12H N[facility]DA PRN Reason: Protocol Last Admin: 03/29/18 03:38 Dose: 100 mls/hr Sodium Chloride (Sodium Chloride 0.9%) 1,000 mls @ 75 mls/hr IV .[id number] [facility] Last Admin: 03/29/18 09:49 Dose: Not Given Fluconazole (Diflucan Iv 100 Mg/50 Ml Ns) 50 mls @ 100 mls/hr IVPB Q24H N[facility]YDA PRN Reason: Protocol Last Admin: 03/28/18 18:43 Dose: 100 mls/hr Levetiracetam 1,000 mg/ Sodium (Chloride) 110 mls @ 420 mls/hr IVPB Q12H [facility] Propofol (Diprivan) 1,000 mg in 100 mls @ 1.742 mls/hr IV .Q24H PRN; Protocol; 5 MCG/KG/MIN PRN Reason: TITRATE PER MD ORDER Insulin Aspart (Novolog) 0 unit SC Q6H NEREYDA PRN Reason: Protocol Last Admin: 03/29/18 05:48 Dose: 3 unit Lactulose (Enulose) 20 gm PO BID [facility] Midodrine (Proamatine) 5 mg PO Q8H [facility] Last Admin: 03/29/18 05:50 Dose: 5 mg Propranolol HCl (Inderal) 10 mg PO DAILY [facility] Last Admin: 03/29/18 09:50 Dose: 10 mg Propylthiouracil (Propylthiouracil) 300 mg PO Q8H [facility] Stop: 03/30/18 12:01 Last Admin: 03/29/18 03:38 Dose: 300 mg - Labs Labs: 03/29/18 07:04 03/29/18 07:01 PT 34.9 SECONDS (9.7-12.2) H* 03/28/18 08:34 INR 3.2 03/28/18 08:34 Assessment and Plan - Assessment and Plan (Free Text) Assessment: 72 yr old woman who has multiple medical problems, with neurological status that could be explained by one of several differentials: she may be having subclinical seizures, although not visualized on EEG; brainstem stroke; severe hepatic encephalopathy superimposed on above conditions. plan: 1. MRI Brain without contrast nadir 2. start propofol IV for sedation and seizure management. 3. Increase keppra to 1000 mg iv bid, and incresae to 1500 mg IV bid tomorrow. 4. EEG saturday. 5. continue to treat ammonia with lactulose. Dr. Hua,
[2018-03-29] MEDS: Propofol 10 mg/ml 1,000 MG/100 ML VIAL IV PRN (13:46)
--- NOTE | 2018-03-29 13:56 | PN ---
DATE: ENDO FOLLOWUP NOTE LOCATION: ICU, room 17 SUBJECTIVE: This is a 72-year-old female with recent overt thyrotoxicosis and possible thyroid crisis, who remains endotracheally intubated at this time and is nonresponsive and currently on IV pressors as given. Her latest thyroid studies showed a T4 of 6.18, total free T4 of 5.21, and a free T3 of 7.99 as noted. Her latest chemistries shows a BUN of 45, sodium 140, potassium 3.4, chloride 97, CO2 35, glucose 162, and creatinine 3.6. She has ongoing IV antibiotic management also for underlying possible cholecystitis as noted. We have discontinued the IV steroids as ordered. We will obtain serial chemistries and supplement accordingly as needed. We will also recommend that the propylthiouracil or PTU be tapered down as the thyroid indices are remarkably improved as noted. Of significance is the fact that she was actually already treated for hyperthyroidism even prior to this admission by her slitter and cutter operator in [facility]. Some intercurrent physical factors, especially growing infection or bacteremia could her over to near thyroid crisis as noted. We will obtain serial chemistries and supplement accordingly as needed. We will follow. Ani House MD
[2018-03-29] MEDS: levETIRAcetam 1,000 MG in Sodium Chloride 0.9% 100 ML IVPB SCH (14:41)
--- NOTE | 2018-03-29 14:55 | CP.PCM.PN ---
Subjective - Date & Time of Evaluation Date of Evaluation: 03/29/18 Time of Evaluation: 13:30 - Subjective Subjective: Nephrology Consultation: Assessment: critical non-oliguric Acute Kidney Injury (N17.9) likely due to sepsis/shock, contrast : Resolved Hypokalemia, hypocalcemia active smoker hyperthyroidism abnormal LFT, cholelithiasis and ? cholecystitis, thyroid storm, acute respi failure s/p intubation septic shock, lactic acidosis coagulopathic, thrombocytopenia Rhabdomyolysis, hypophosphatemia Plan No acute need for renal replacement therapy at this time, MICHELLE resolved Patient not on ACEI/ARB due to MICHELLE. maintain hemodynamics stable, avoid hypotension will start po neutra phos for hypophosphatemia Monitor Input/Output, daily weights and renal function with basic metabolic panel f/u neuro re: mental status replete K S: seen and examined w/ family at bedside Physical Examination: General Appearance: ill appearing intubated. Vitals reviewed and noted as below Head; Atraumatic, normocephalic ENT: no ulcers no thrush. Oropharynx: no rash or ulcers.orally intubated EYES: icteric Neck; supple no lymphadenopathy, Lungs: Normal respiratory rate/effort. Breath sounds bilateral equal and clear anteriorly Heart: Normal rate. s1s2 normal. No rub or gallop. Extremities: no edema. No varicose veins Neurological: Patient is not responsive Skin: Warm and dry. Normal turgor. No rash. Palpitation: Normal elasticity for age Abdomen: Abdomen is soft. Bowel sounds reduced There is no abdominal tenderness , no guarding/rigidity no organomegaly Psych:unable MSK: no joint tenderness or swelling. Digits and nails normal, no deformity : kidney or bladder not palpable. has johnson Labs/imaging reviewed. Past medical history, past surgical history, family history, social history, allergy reviewed and noted as below Family hx: no hx of CKD. Rest non-contributory CPK 3135 Lactic acid 12 INR 3.1 UA SG 1.057 1 + protein renal imaging: unremarkable Objective - Vital Signs/Intake and Output Vital Signs (last 24 hours): Temp Pulse Resp BP Pulse Ox 97.9 F 71 23 113/49 L 92 L 03/29/18 12:00 03/29/18 14:11 03/29/18 14:11 03/29/18 14:11 03/29/18 14:11 Intake and Output: 03/29/18 03/29/18 06:59 18:59 Intake Total 2528.4 819.2 Output Total 490 320 Balance 2038.4 499.2 - Medications Medications: Current Medications Acetaminophen (Tylenol 650mg/20.3ml Solution Ud) 650 mg PO Q4H PRN PRN Reason: Temperature above 100.6 Last Admin: 03/28/18 14:47 Dose: 650 mg Cholestyramine Resin (Prevalite) 4 gm PO Q8H [facility] Last Admin: 03/29/18 09:00 Dose: 4 gm Famotidine (Pepcid) 20 mg PO BID [facility] Last Admin: 03/29/18 09:51 Dose: 20 mg Norepinephrine Bitartrate 4 mg (/ Dextrose) 254 mls @ 15.24 mls/hr IV .[id number] PRN; Protocol; 4 MCG/MIN PRN Reason: TITRATE PER MD ORDER Last Admin: 03/29/18 04:28 Dose: 4.93 mcg/min, 18.8 mls/hr Vasopressin 40 units/ Sodium (Chloride) 40 mls @ 0.6 mls/hr IV .Q24H [facility]EREYDA; 0.01 UNITS/MIN PRN Reason: Protocol Last Admin: 03/28/18 22:59 Dose: 0.04 units/min, 2.4 mls/hr Meropenem 500 mg/ Sodium (Chloride) 100 mls @ 100 mls/hr IVPB Q8 NEREYDA PRN Reason: Protocol Last Admin: 03/29/18 14:45 Dose: 100 mls/hr Vancomycin/Sodium Chloride (Vancomycin 1 Gm/Ns 200 Ml) 1 gm in 200 mls @ 166.7 mls/hr IVPB Q24H [facility] PRN Reason: Protocol Stop: 04/01/18 10:01 Last Admin: 03/29/18 09:51 Dose: 166.7 mls/hr Acyclovir 500 mg/ Sodium (Chloride) 100 mls @ 100 mls/hr IV Q12H [facility] PRN Reason: Protocol Last Admin: 03/29/18 03:38 Dose: 100 mls/hr Sodium Chloride (Sodium Chloride 0.9%) 1,000 mls @ 75 mls/hr IV .[id number] [facility] Last Admin: 03/29/18 09:49 Dose: Not Given Fluconazole (Diflucan Iv 100 Mg/50 Ml Ns) 50 mls @ 100 mls/hr IVPB Q24H [facility] PRN Reason: Protocol Last Admin: 03/28/18 18:43 Dose: 100 mls/hr Levetiracetam 1,000 mg/ Sodium (Chloride) 110 mls @ 420 mls/hr IVPB Q12H [facility] Last Admin: 03/29/18 14:41 Dose: 420 mls/hr Propofol (Diprivan) 1,000 mg in 100 mls @ 1.742 mls/hr IV .Q24H PRN; Protocol; 5 MCG/KG/MIN PRN Reason: TITRATE PER MD ORDER Last Admin: 03/29/18 13:46 Dose: 5 mcg/kg/min, 1.742 mls/hr Insulin Aspart (Novolog) 0 unit SC Q6H [facility] PRN Reason: Protocol Last Admin: 03/29/18 13:44 Dose: Not Given Lactulose (Enulose) 20 gm PO BID [facility] Midodrine (Proamatine) 5 mg PO Q8H [facility] Last Admin: 03/29/18 14:44 Dose: 5 mg Propranolol HCl (Inderal) 10 mg PO DAILY [facility] Last Admin: 03/29/18 09:50 Dose: 10 mg Propylthiouracil (Propylthiouracil) 300 mg PO Q8H [facility] Stop: 03/30/18 12:01 Last Admin: 03/29/18 12:47 Dose: 300 mg - Labs Labs: 03/29/18 07:04 03/29/18 07:01 PT 34.9 SECONDS (9.7-12.2) H* 03/28/18 08:34 INR 3.2 03/28/18 08:34
[2018-03-29] MEDS ORDERED: Phytonadione 10 mg/ml Inj (Adult) IV STA (15:24)
[2018-03-29 15:31] LABS: INR 2.8
[2018-03-29 15:35] LABS: PROTHROMBIN TIME 30.2 SECONDS (9.7-12.2)
[2018-03-29] MEDS: Potassium Chloride 20 mEq/15 ml LIQ UD PO SCH ×2 (16:00→21:09)
--- NOTE | 2018-03-29 17:23 | CP.PCM.PN ---
Subjective - Date & Time of Evaluation Date of Evaluation: 04/05/18 Time of Evaluation: 03:00 - Subjective Subjective: dictated Objective - Vital Signs/Intake and Output Vital Signs (last 24 hours): Temp Pulse Resp BP Pulse Ox 97.9 F 71 23 113/49 L 92 L 03/29/18 12:00 03/29/18 14:11 03/29/18 14:11 03/29/18 14:11 03/29/18 14:11 Intake and Output: 03/29/18 03/29/18 06:59 18:59 Intake Total 2528.4 819.2 Output Total 490 320 Balance 2038.4 499.2 - Medications Medications: Current Medications Acetaminophen (Tylenol 650mg/20.3ml Solution Ud) 650 mg PO Q4H PRN PRN Reason: Temperature above 100.6 Last Admin: 03/28/18 14:47 Dose: 650 mg Cholestyramine Resin (Prevalite) 4 gm PO Q8H [facility] Last Admin: 03/29/18 15:20 Dose: 4 gm Famotidine (Pepcid) 20 mg PO BID [facility] Last Admin: 03/29/18 09:51 Dose: 20 mg Norepinephrine Bitartrate 4 mg (/ Dextrose) 254 mls @ 15.24 mls/hr IV .[id number] PRN; Protocol; 4 MCG/MIN PRN Reason: TITRATE PER MD ORDER Last Admin: 03/29/18 04:28 Dose: 4.93 mcg/min, 18.8 mls/hr Vasopressin 40 units/ Sodium (Chloride) 40 mls @ 0.6 mls/hr IV .Q24H [facility]EREYDA; 0.01 UNITS/MIN PRN Reason: Protocol Last Admin: 03/28/18 22:59 Dose: 0.04 units/min, 2.4 mls/hr Meropenem 500 mg/ Sodium (Chloride) 100 mls @ 100 mls/hr IVPB Q8 NEREYDA PRN Reason: Protocol Last Admin: 03/29/18 14:45 Dose: 100 mls/hr Vancomycin/Sodium Chloride (Vancomycin 1 Gm/Ns 200 Ml) 1 gm in 200 mls @ 166.7 mls/hr IVPB Q24H [facility] PRN Reason: Protocol Stop: 04/01/18 10:01 Last Admin: 03/29/18 09:51 Dose: 166.7 mls/hr Acyclovir 500 mg/ Sodium (Chloride) 100 mls @ 100 mls/hr IV Q12H [facility] PRN Reason: Protocol Last Admin: 03/29/18 15:20 Dose: 100 mls/hr Sodium Chloride (Sodium Chloride 0.9%) 1,000 mls @ 75 mls/hr IV .[id number] [facility] Last Admin: 03/29/18 09:49 Dose: Not Given Fluconazole (Diflucan Iv 100 Mg/50 Ml Ns) 50 mls @ 100 mls/hr IVPB Q24H [facility] PRN Reason: Protocol Last Admin: 03/28/18 18:43 Dose: 100 mls/hr Levetiracetam 1,000 mg/ Sodium (Chloride) 110 mls @ 420 mls/hr IVPB Q12H [facility] Last Admin: 03/29/18 14:41 Dose: 420 mls/hr Propofol (Diprivan) 1,000 mg in 100 mls @ 1.742 mls/hr IV .Q24H PRN; Protocol; 5 MCG/KG/MIN PRN Reason: TITRATE PER MD ORDER Last Admin: 03/29/18 13:46 Dose: 5 mcg/kg/min, 1.742 mls/hr Potassium Chloride (Potassium Chloride 20 Meq/100 Ml) 20 meq in 100 mls @ 50 mls/hr IVPB ONCE ONE Stop: 03/29/18 17:24 Insulin Aspart (Novolog) 0 unit SC Q6H NEREYDA PRN Reason: Protocol Last Admin: 03/29/18 13:44 Dose: Not Given Lactulose (Enulose) 20 gm PO BID [facility] Midodrine (Proamatine) 5 mg PO Q8H [facility] Last Admin: 03/29/18 14:44 Dose: 5 mg Phytonadione (Vitamin K Tab) 10 mg PO DAILY [facility] Stop: 03/31/18 10:01 Potassium Chloride (Potassium Chloride Oral Soln) 40 meq PO Q6H [facility] Stop: 03/29/18 21:31 Potassium Phos/Sodium Phos (Neutra-Phos) 1 pkt PO BID [facility] Propranolol HCl (Inderal) 10 mg PO DAILY [facility] Last Admin: 03/29/18 09:50 Dose: 10 mg Propylthiouracil (Propylthiouracil) 300 mg PO Q8H [facility] Stop: 03/30/18 12:01 Last Admin: 03/29/18 12:47 Dose: 300 mg - Labs Labs: 03/29/18 07:04 03/29/18 07:01 PT 30.2 SECONDS (9.7-12.2) H* 03/29/18 15:20 INR 2.8 03/29/18 15:20
[2018-03-29] MEDS: Fluconazole IV 100mg/50 ml NS 50 ML IVPB SCH (17:46)
[2018-03-29] MEDS: Potassium & Sodium Phosphate PO SCH (17:59)
--- NOTE | 2018-03-29 22:46 | PN ---
DATE: 03/29/2018 SUBJECTIVE: The patient remains unresponsive on the ventilator but today, she looks slightly more responsive, even though she is lethargic. The nurse said she is also getting lactulose for diabetic encephalopathy. She remains on all the antibiotics we will go over it again and the daughters were at the bedside. PHYSICAL EXAMINATION: VITAL SIGNS: T-max is 97.9, blood pressure 114/47, respirations are 22, saturations 92%. HEENT: Head is atraumatic. NECK: Supple. LUNGS: Clear. No crackles or rales present. HEART: S1 and S2 is regular. ABDOMEN: Soft, nontender. No guarding, no rigidity present. EXTREMITIES: Have no edema. Venodyne boots present. LABORATORY DATA: White count is 13 today, hemoglobin 12.3, hematocrit 37, platelet count is 85. There was no differential today of any bandemia. INR is still 2.8 because of the hepatic issues. Sodium is 140, potassium 3.4, chlorides are 97, CO2 is 35, creatinine is 0.6. She remains severely jaundiced with bilirubin of 7.2, AST of 2139 and ALT of 914. The CAT scan repeat was negative for any stroke. ASSESSMENT AND PLAN: The patient is with a thyroid storm, respiratory failure, unresponsive at this time and is with hepatic issues, could be due to the thyroid storm as well as due to the medications. We had started acyclovir on 03/27/2018, and she is on cholestyramine and famotidine, fluconazole because comfort is there and also on seizure medication Keppra and meropenem and vancomycin at this time. Micro [place], the sputum came out yeast, urine came out with the culture yeast species, so we will ask them to change the Garcia catheter tomorrow, and I am also waiting for the HSV screening in the serum as her INR remains high and those need to be followed as she remains jaundiced. We will follow. Her CAT scan of abdomen was negative and chest x-ray was noted as some left side infiltrate and effusion, but does not account for the bandemia and the procalcitonin level at this time, it could be related to thyroid toxicosis and thyroid storm. Diarrhea now is from the lactulose also, so will empirically continue these antibiotics at this time. Sammy Avendano MD [facility] # [id number]
[2018-03-30] MEDS: (Novolog) Insulin Aspart, Recombinant 100 u/ml 10 ml vial SC SCH ×4 (00:08→18:03)
[2018-03-30] MEDS: Sodium Chloride 0.9% 1,000 ML IV SCH ×2 (01:00→16:51)
[2018-03-30] MEDS: levETIRAcetam 1,000 MG in Sodium Chloride 0.9% 100 ML IVPB SCH (01:01)
[2018-03-30] MEDS: Acyclovir 500 MG in Sodium Chloride 0.9% 100 ML IV SCH (04:21)
[2018-03-30] MEDS: Meropenem 500 MG in Sodium Chloride 0.9% 100 ML IVPB SCH (05:21)
[2018-03-30 06:09] LABS: ABG ALLEN TEST POS; ARTERIAL BLOOD GAS HCO3 32.2 mmol/L (21-28); ARTERIAL BLOOD GAS HEMOGLOBIN 11.6 g/dL (11.7-17.4); ARTERIAL BLOOD GAS PCO2 37 mm/Hg (35-45); ARTERIAL BLOOD GAS PH 7.55 (7.35-7.45); ARTERIAL BLOOD GAS PO2 79 mm/Hg (80-100); ARTERIAL BLOOD GAS TCO2 33.5 mmol/L (22-28)
[2018-03-30] MEDS: Propofol 10 mg/ml 1,000 MG/100 ML VIAL IV PRN (06:29)
[2018-03-30 06:47] LABS: SQUAMOUS EPITHIAL < 1 /hpf (0-5); URINE BACTERIA RARE (<OCC); URINE BILIRUBIN 1+ (NEGATIVE); URINE BLOOD 1+ (NEGATIVE); URINE CLARITY Clear (Clear); URINE COLOR Amber (YELLOW); URINE GLUCOSE (UA) 1+ mg/dL (Normal); URINE LEUKOCYTE ESTERASE NEG Leu/uL (Negative); URINE PROTEIN NEGATIVE (NEGATIVE); URINE UROBILINOGEN NORMAL mg/dL (0.2-1.0)
[2018-03-30 06:49] LABS: BASO % 0.2 % (0.0-2.0); EOS # 0.3 K/uL (0.0-0.7); HEMOGLOBIN 11.9 g/dL (11.0-16.0); LYMPH # 1.3 K/uL (1.0-4.3); LYMPH % 11.4 % (20.0-40.0); MEAN CELL VOLUME 94.1 fL (81.0-99.0); MEAN CORPUSCULAR HEMOGLOBIN 31.9 pg (27.0-31.0); MEAN CORPUSCULAR HGB CONC 33.9 g/dL (33.0-37.0); MEAN PLATELET VOLUME 10.7 fL (7.2-11.7); MONO # 0.6 K/uL (0.0-0.8); MONO % 5.7 % (0.0-10.0); NEUT # 8.8 K/uL (1.8-7.0); NEUT % 79.7 % (50.0-75.0); NRBC % 0.1 % (0.0-2.0); RBC 3.73 Mil/uL (3.80-5.20); RED CELL DISTRIBUTION WIDTH 14.5 % (11.5-14.5); WHITE BLOOD COUNT 11.1 K/uL (4.8-10.8)
[2018-03-30 06:55] LABS: INR 2.7
[2018-03-30 07:05] LABS: PROTHROMBIN TIME 29.7 SECONDS (9.7-12.2)
[2018-03-30 07:05] LABS: ALB/GLOB RATIO 0.7 (1.0-2.1); ALT/SGPT 687 U/L (9-52); BLOOD UREA NITROGEN 35 mg/dL (7-17); CALCIUM 7.1 mg/dl (8.6-10.4); GFR AFRICAN-AMERICAN > 60; GFR NON-AFRICAN AMERICAN > 60
[2018-03-30 07:17] LABS: T4 7.65 ug/dL (5.5-11.0)
[2018-03-30 07:32] LABS: AST/SGOT 1055 U/L (14-36)
--- NOTE | 2018-03-30 08:40 | CP.PCM.PN ---
Subjective - Date & Time of Evaluation Date of Evaluation: 03/30/18 Time of Evaluation: 08:30 - Subjective Subjective: patient remains intubated. no clinical change. Objective - Vital Signs/Intake and Output Vital Signs (last 24 hours): Temp Pulse Resp BP Pulse Ox 99 F 77 24 111/45 L 93 L 03/30/18 00:00 03/30/18 02:11 03/30/18 02:11 03/30/18 02:11 03/30/18 02:11 Intake and Output: 03/30/18 03/30/18 06:59 18:59 Intake Total 1475.4 Output Total 260 Balance 1215.4 - Medications Medications: Current Medications Acetaminophen (Tylenol 650mg/20.3ml Solution Ud) 650 mg PO Q4H PRN PRN Reason: Temperature above 100.6 Last Admin: 03/28/18 14:47 Dose: 650 mg Cholestyramine Resin (Prevalite) 4 gm PO Q8H [facility] Last Admin: 03/29/18 23:44 Dose: 4 gm Famotidine (Pepcid) 20 mg PO BID [facility] Last Admin: 03/29/18 17:57 Dose: 20 mg Norepinephrine Bitartrate 4 mg (/ Dextrose) 254 mls @ 15.24 mls/hr IV .[id number] PRN; Protocol; 4 MCG/MIN PRN Reason: TITRATE PER MD ORDER Last Titration: 03/30/18 01:04 Dose: 1.96 mcg/min, 7.5 mls/hr Vasopressin 40 units/ Sodium (Chloride) 40 mls @ 0.6 mls/hr IV .Q24H [facility]ERE[facility]; 0.01 UNITS/MIN PRN Reason: Protocol Last Admin: 03/29/18 17:49 Dose: 0.03 units/min, 1.8 mls/hr Meropenem 500 mg/ Sodium (Chloride) 100 mls @ 100 mls/hr IVPB Q8 NEREYDA PRN Reason: Protocol Last Admin: 03/30/18 05:21 Dose: 100 mls/hr Vancomycin/Sodium Chloride (Vancomycin 1 Gm/Ns 200 Ml) 1 gm in 200 mls @ 166.7 mls/hr IVPB Q24H NEREYDA PRN Reason: Protocol Stop: 04/01/18 10:01 Last Admin: 03/29/18 09:51 Dose: 166.7 mls/hr Acyclovir 500 mg/ Sodium (Chloride) 100 mls @ 100 mls/hr IV Q12H NEREYDA PRN Reason: Protocol Last Admin: 03/30/18 04:21 Dose: 100 mls/hr Sodium Chloride (Sodium Chloride 0.9%) 1,000 mls @ 75 mls/hr IV .[id number] [facility] Last Admin: 03/30/18 01:00 Dose: 75 mls/hr Fluconazole (Diflucan Iv 100 Mg/50 Ml Ns) 50 mls @ 100 mls/hr IVPB Q24H [facility] PRN Reason: Protocol Last Admin: 03/29/18 17:46 Dose: 100 mls/hr Levetiracetam 1,000 mg/ Sodium (Chloride) 110 mls @ 420 mls/hr IVPB Q12H [facility] Last Admin: 03/30/18 01:01 Dose: 420 mls/hr Propofol (Diprivan) 1,000 mg in 100 mls @ 1.742 mls/hr IV .Q24H PRN; Protocol; 5 MCG/KG/MIN PRN Reason: TITRATE PER MD ORDER Last Admin: 03/30/18 06:29 Dose: 5 mcg/kg/min, 1.742 mls/hr Insulin Aspart (Novolog) 0 unit SC Q6H NEREYDA PRN Reason: Protocol Last Admin: 03/30/18 06:00 Dose: Not Given Lactulose (Enulose) 20 gm PO BID [facility] Last Admin: 03/29/18 17:47 Dose: 20 gm Midodrine (Proamatine) 5 mg PO Q8H [facility] Last Admin: 03/30/18 05:21 Dose: 5 mg Phytonadione (Vitamin K Tab) 10 mg PO DAILY [facility] Stop: 03/31/18 10:01 Last Admin: 03/29/18 16:00 Dose: 10 mg Potassium Phos/Sodium Phos (Neutra-Phos) 1 pkt PO BID [facility] Last Admin: 03/29/18 17:59 Dose: 1 pkt Propranolol HCl (Inderal) 10 mg PO DAILY [facility] Last Admin: 03/29/18 09:50 Dose: 10 mg Propylthiouracil (Propylthiouracil) 300 mg PO Q8H [facility] Stop: 03/30/18 12:01 Last Admin: 03/30/18 04:21 Dose: 300 mg - Labs Labs: 03/30/18 06:33 03/30/18 06:35 PT 29.7 SECONDS (9.7-12.2) H* 03/30/18 06:34 INR 2.7 03/30/18 06:34 APTT 45 SECONDS (21-34) H 03/30/18 06:34 - Constitutional Appears: Non-toxic - Head Exam Head Exam: NORMAL INSPECTION - Eye Exam Eye Exam: Normal appearance - ENT Exam ENT Exam: Mucous Membranes Moist - Neck Exam Neck Exam: Full ROM - Respiratory Exam Respiratory Exam: Decreased Breath Sounds - Cardiovascular Exam Cardiovascular Exam: REGULAR RHYTHM - GI/Abdominal Exam GI & Abdominal Exam: Normal Bowel Sounds - Rectal Exam Rectal Exam: Deferred - Extremities Exam Extremities Exam: absent: Pedal Edema - Back Exam Back Exam: NORMAL INSPECTION - Neurological Exam Neurological Exam: Alert - Psychiatric Exam Psychiatric exam: Normal Affect - Skin Skin Exam: Normal Color Assessment and Plan (1) Cardiomyopathy Assessment & Plan: due to thyrotoxicosis. stable rhythm. consider more cardioselective beta fabienne Status: Acute
[2018-03-30] MEDS: Cholestyramine 4 gm/5.5 gm UD Packet PO SCH ×2 (08:41→16:50)
--- NOTE | 2018-03-30 08:50 | CP.PCM.PN ---
Subjective - Date & Time of Evaluation Date of Evaluation: 03/30/18 Time of Evaluation: 08:30 - Subjective Subjective: Patient was seen and examined by me. She remains intubated at this time on [facility]. Tmax was 99 HR in the 70s, NSR and Systolic BP in the 110s. She remains on two pressor medications The T4, Free T4, and Free T3 have decreased to almost normal now. Per endocrinology will decrease PTU Ammonia is decreased to 24 AST and ALT and INR have decreased. T bili is still high. Remains on abx Vancomycin and Meropenom. Blood cultures negative. There is positive growth for yeast. She is on IV fluconazole. On Acylovir IV after EEGs suggest possibility of HSV encephalitis As mentioned previously this is a 72 year old female who was just diagnosed with hyperthyroidism outpatient. The patient came in on 03/24 with severe uncontrolled diarrhea. She was feeling weak, tired, and reportedly palpitations. She fell out of her bed as she was trying to go to bathroom. She has had weight loss for some time as well. There have been fevers as well. Her respirations and mental status became worse and she required intubation. Concern is she is in a thyroid crisis/storm possibly from an infection or possible from IV contrast. She also has a very low EF and hypokinesis Objective - Vital Signs/Intake and Output Vital Signs (last 24 hours): Temp Pulse Resp BP Pulse Ox 99 F 75 22 107/43 L 95 03/30/18 00:00 03/30/18 08:11 03/30/18 08:11 03/30/18 08:11 03/30/18 08:11 Intake and Output: 03/30/18 03/30/18 06:59 18:59 Intake Total 2299.4 106.0 Output Total 600 Balance 1699.4 106.0 - Medications Medications: Current Medications Acetaminophen (Tylenol 650mg/20.3ml Solution Ud) 650 mg PO Q4H PRN PRN Reason: Temperature above 100.6 Last Admin: 03/28/18 14:47 Dose: 650 mg Cholestyramine Resin (Prevalite) 4 gm PO Q8H [facility] Last Admin: 03/30/18 08:41 Dose: 4 gm Famotidine (Pepcid) 20 mg PO BID [facility] Last Admin: 03/29/18 17:57 Dose: 20 mg Norepinephrine Bitartrate 4 mg (/ Dextrose) 254 mls @ 15.24 mls/hr IV .[id number] PRN; Protocol; 4 MCG/MIN PRN Reason: TITRATE PER MD ORDER Last Titration: 03/30/18 01:04 Dose: 1.96 mcg/min, 7.5 mls/hr Vasopressin 40 units/ Sodium (Chloride) 40 mls @ 0.6 mls/hr IV .Q24H [facility]; 0.01 UNITS/MIN PRN Reason: Protocol Last Admin: 03/29/18 17:49 Dose: 0.03 units/min, 1.8 mls/hr Meropenem 500 mg/ Sodium (Chloride) 100 mls @ 100 mls/hr IVPB Q8 [facility] PRN Reason: Protocol Last Admin: 03/30/18 05:21 Dose: 100 mls/hr Vancomycin/Sodium Chloride (Vancomycin 1 Gm/Ns 200 Ml) 1 gm in 200 mls @ 166.7 mls/hr IVPB Q24H [facility] PRN Reason: Protocol Stop: 04/01/18 10:01 Last Admin: 03/29/18 09:51 Dose: 166.7 mls/hr Acyclovir 500 mg/ Sodium (Chloride) 100 mls @ 100 mls/hr IV Q12H [facility] PRN Reason: Protocol Last Admin: 03/30/18 04:21 Dose: 100 mls/hr Sodium Chloride (Sodium Chloride 0.9%) 1,000 mls @ 75 mls/hr IV .[id number] [facility] Last Admin: 03/30/18 01:00 Dose: 75 mls/hr Fluconazole (Diflucan Iv 100 Mg/50 Ml Ns) 50 mls @ 100 mls/hr IVPB Q24H [facility] PRN Reason: Protocol Last Admin: 03/29/18 17:46 Dose: 100 mls/hr Levetiracetam 1,000 mg/ Sodium (Chloride) 110 mls @ 420 mls/hr IVPB Q12H [facility] Last Admin: 03/30/18 01:01 Dose: 420 mls/hr Propofol (Diprivan) 1,000 mg in 100 mls @ 1.742 mls/hr IV .Q24H PRN; Protocol; 5 MCG/KG/MIN PRN Reason: TITRATE PER MD ORDER Last Admin: 03/30/18 06:29 Dose: 5 mcg/kg/min, 1.742 mls/hr Insulin Aspart (Novolog) 0 unit SC Q6H [facility] PRN Reason: Protocol Last Admin: 03/30/18 06:00 Dose: Not Given Lactulose (Enulose) 20 gm PO BID [facility] Last Admin: 03/29/18 17:47 Dose: 20 gm Midodrine (Proamatine) 5 mg PO Q8H [facility] Last Admin: 03/30/18 05:21 Dose: 5 mg Phytonadione (Vitamin K Tab) 10 mg PO DAILY [facility] Stop: 03/31/18 10:01 Last Admin: 03/29/18 16:00 Dose: 10 mg Potassium Phos/Sodium Phos (Neutra-Phos) 1 pkt PO BID [facility] Last Admin: 03/29/18 17:59 Dose: 1 pkt Propranolol HCl (Inderal) 10 mg PO DAILY [facility] Last Admin: 03/29/18 09:50 Dose: 10 mg Propylthiouracil (Propylthiouracil) 300 mg PO Q8H [facility] Stop: 03/30/18 12:01 Last Admin: 03/30/18 04:21 Dose: 300 mg - Labs Labs: 03/30/18 06:33 03/30/18 06:35 PT 29.7 SECONDS (9.7-12.2) H* 03/30/18 06:34 INR 2.7 03/30/18 06:34 APTT 45 SECONDS (21-34) H 03/30/18 06:34 Assessment and Plan - Assessment and Plan (Free Text) Assessment: Overall: 72 year old female with past medical history of recently diagnosed hyperthyroidism is admitted for intractable diarrhea, shortly thereafter developed respiratory distress and required intubation. There have been fevers as high as 104 and also rapid tachycardia. An echo was done showing severe hypokinesis and also low EF of 20%. She is also being covered with IV abx in case of infection as well. As of 03/27 she was started on Acylovir for the potential of HSV infection Thyroid Storm, elevated temperatures, rapid HR - Likey from infection or from IV contrast 03/30: Free T4, T4, Free T3 almost in normal range. Per endocrinology will decrease the PTU. She remains on the cholestrymine as well. TSH will probably stay low for a long time. Off of the hydrocortosine IV 03/28: Remains on PTU. The IV hydrocortisone was DC yesterday The T4, FT3, T3 are decreasing. 03/28: HR is 70s to 80s now. NSR. Tmax 100.1 Hydrocortisone IV decreased to BID. The patient remains on PTU, Propranolol as well. 03/27: The T3 has decreased from 23 to 13. Yesterday started on PTU and Cholestramyine and Hydrocotizone IV. My concern is there maybe some underlying infection that has exacerbated her into thyroid crisis. Or this maybe have been made worse with IV contrast material. The blood cultures negative so far, the urine culture is being re- ordered. CXRAYs look ok, probably not pnuemonia 03/26: Tmax was 100.1, HR are in the 80s at this time NSR at this moment. She is now on Hydrocortisone 100 mg IV Q8, Cholestramynine 4 via NGT to slow T4 to T3 coversion. Remains on methimazole, considering her situation may have to change to PTU 03/25: Discussed with endocrinology. Has recieved IV hydrocortosone 250 mg Patient has been given IV hydrocortisone as well increased dose of tapazole to Q8. Continue the propranolol now, has also received IV propranol Per discussion with family members the patient has only been recently diagnosed with hyperthyroidism Will continue the following medications and adjust accordingly: methimazole 10 mg Q8H, Inderall 10 QD Altermental State: 03/30: Yesterday after discussing with neurology about the EEG, I started patient on propfol due to potential seizures. The EEG is concerning for either siezure, HSV encephalitis, or a stroke. So far she has had 3 CTs that have been negative. We would like to get an open MRI to assess for a possible brain stem stroke. She would have to be moved to [place] for the open MRI. We are not able to do this on Saturday due to staffing issues. She is on propofol now, however it needs to be noted that she was non resposnive without propofol. She is also on Keppra IV BID as well. 03/29: Patient has had a total of 3 CT scans of the head - these have been negative. Our concern was for potential stroke, which so far probably is not but we will monitor. EEGs suggest possibility of viral HSV Encephalitis. She has been placed on IV Acylovir as well as IV Keppra. At somepoint maybe will need an LP to test for HSV. There are serum HSV pending at the moment. She also has high ammonia level from liver injury. Lactulose has been ordered. Respiratory failure, hypotention: Now intubated 03/26: The chest XRAY is clear. Appreciate cardiology evaluation. 03/25: Likley secondary from worsening cardiac function. EF is very low and hypokinesis seen on echo She now has a central line and also on pressor IV levophed as well as bicarb ggt. Hypoglycemia: 03/27: Overnight was high. The D10 was stopped overnight. Started on SSI this morning. Continue follow accucheks 03/26: Overnight has had several low accuchecks - likley she has burned up a lot of her energy stores (fat/glycogen) because of the hyperthyroidism. She was placed on D10 overnight @ 50 Potential sepsis, cultures pending 03/30: The repeat blood cultures negative. Tmax decreased a lot now. On Vancomycin and Meropenom. 03/28: Per discussion with neurology, patient was started on Acyclovir last night and Keppra. Blood cultures remains negative. WBC stable, However there is still a large left shift 03/27: Discussed with ID yesterday. Abx changed to meropenom, aztreonam and also flagyl. Blood cultures negative so far. Urine culture has to be taken again. Her UA suggest possible UTI. She did have a HIDA scan and this was negative. 03/26: Last night was on Zosyn. The bands this morning increased to 16, added vancomycin x 1. Blood cultures negative 24 hrs, urine culture pending, the CXRAY does not have infiltrates Intractable diarrhea - secondary to hyperthyroidism 03/30: Remains on IVF, the rate is slower now Elavated LFTs and Liver Lesion 03/30: Ammonia is decreased 03/29: On lactulose. Ammonia level is elevated. 03/28: The PTU maybe increasing her LFTs Incidental finding on CT. 5mm small lesion. If low risk of malignancy, no further follow up necessary. If high risk, recommended follow up CT or MRI in 6- 12 months. 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 Recommended follow up abdominal MRI in 6-12 months.
[2018-03-30] MEDS ORDERED: Potassium Phosphate 15 MMOLE in Dextrose 5% In Water 250 ML IVPB ONE (09:26)
[2018-03-30] MEDS ORDERED: Magnesium Sulfate 1 gm in D5W 1 GM/100 ML BAG IVPB ONE (09:30)
--- NOTE | 2018-03-30 10:32 | CP.PCM.PN ---
<Marcy Chandler - Last Filed: 03/30/18 10:38> Subjective - Date & Time of Evaluation Date of Evaluation: 03/30/18 Time of Evaluation: 10:32 - Subjective Subjective: Ms. Jewell was seen and examined at the bedside in ICU. She is on mechanical ventilator on PRVC mode. Her pupils are reactive to light with 3 mm size equal bilaterally, + corneal reflex, + gag reflex, with minimally withdrawing from any noxious stimuli with GCS- 4T. with minimal opening of bilateral eyelids as a response to noxious stimuli. At present, she is on vasopressin and levophed , and diprivan drip for sedation. EEG showed abnormal EEG result with PLEDS. There was no untoward events overnight. Objective - Vital Signs/Intake and Output Vital Signs (last 24 hours): Temp Pulse Resp BP Pulse Ox 98.5 F 75 22 107/42 L 95 03/30/18 08:00 03/30/18 10:11 03/30/18 10:11 03/30/18 10:11 03/30/18 10:11 Intake and Output: 03/30/18 03/30/18 06:59 18:59 Intake Total 2299.4 106.0 Output Total 600 Balance 1699.4 106.0 - Medications Medications: Current Medications Acetaminophen (Tylenol 650mg/20.3ml Solution Ud) 650 mg PO Q4H PRN PRN Reason: Temperature above 100.6 Last Admin: 03/28/18 14:47 Dose: 650 mg Ascorbic Acid (Vitamin C 500 Mg Tab) 500 mg PO DAILY [facility] Cholestyramine Resin (Prevalite) 4 gm PO Q8H [facility] Last Admin: 03/30/18 08:41 Dose: 4 gm Famotidine (Pepcid) 20 mg PO BID [facility] Last Admin: 03/29/18 17:57 Dose: 20 mg Folic Acid (Folic Acid) 1 mg PO DAILY [facility] Norepinephrine Bitartrate 4 mg (/ Dextrose) 254 mls @ 15.24 mls/hr IV .[id number] PRN; Protocol; 4 MCG/MIN PRN Reason: TITRATE PER MD ORDER Last Titration: 03/30/18 01:04 Dose: 1.96 mcg/min, 7.5 mls/hr Vasopressin 40 units/ Sodium (Chloride) 40 mls @ 0.6 mls/hr IV .Q24H [facility]; 0.01 UNITS/MIN PRN Reason: Protocol Last Admin: 03/29/18 17:49 Dose: 0.03 units/min, 1.8 mls/hr Meropenem 500 mg/ Sodium (Chloride) 100 mls @ 100 mls/hr IVPB Q8 [facility] PRN Reason: Protocol Last Admin: 03/30/18 05:21 Dose: 100 mls/hr Vancomycin/Sodium Chloride (Vancomycin 1 Gm/Ns 200 Ml) 1 gm in 200 mls @ 166.7 mls/hr IVPB Q24H [facility] PRN Reason: Protocol Stop: 04/01/18 10:01 Last Admin: 03/29/18 09:51 Dose: 166.7 mls/hr Acyclovir 500 mg/ Sodium (Chloride) 100 mls @ 100 mls/hr IV Q12H [facility] PRN Reason: Protocol Last Admin: 03/30/18 04:21 Dose: 100 mls/hr Sodium Chloride (Sodium Chloride 0.9%) 1,000 mls @ 75 mls/hr IV .[id number] [facility] Last Admin: 03/30/18 01:00 Dose: 75 mls/hr Fluconazole (Diflucan Iv 100 Mg/50 Ml Ns) 50 mls @ 100 mls/hr IVPB Q24H [facility] PRN Reason: Protocol Last Admin: 03/29/18 17:46 Dose: 100 mls/hr Levetiracetam 1,000 mg/ Sodium (Chloride) 110 mls @ 420 mls/hr IVPB Q12H [facility] Last Admin: 03/30/18 01:01 Dose: 420 mls/hr Propofol (Diprivan) 1,000 mg in 100 mls @ 1.742 mls/hr IV .Q24H PRN; Protocol; 5 MCG/KG/MIN PRN Reason: TITRATE PER MD ORDER Last Admin: 03/30/18 06:29 Dose: 5 mcg/kg/min, 1.742 mls/hr Potassium Phosphate 15 mmole/ (Dextrose) 255 mls @ 42.5 mls/hr IVPB ONCE ONE Stop: 03/30/18 15:25 Insulin Aspart (Novolog) 0 unit SC Q6H [facility] PRN Reason: Protocol Last Admin: 03/30/18 06:00 Dose: Not Given Lactulose (Enulose) 20 gm PO BID [facility] Last Admin: 03/29/18 17:47 Dose: 20 gm Midodrine (Proamatine) 5 mg PO Q8H [facility] Last Admin: 03/30/18 05:21 Dose: 5 mg Multivitamins/Vitamin C (Multi-Delyn Liquid) 5 ml PO DAILY [facility] Phytonadione (Vitamin K Tab) 10 mg PO DAILY [facility] Stop: 03/31/18 10:01 Last Admin: 03/29/18 16:00 Dose: 10 mg Potassium Chloride (Potassium Chloride Oral Soln) 40 meq PO Q6H [facility] Stop: 03/30/18 15:31 Potassium Phos/Sodium Phos (Neutra-Phos) 1 pkt PO BID [facility] Last Admin: 03/29/18 17:59 Dose: 1 pkt Propranolol HCl (Inderal) 10 mg PO DAILY [facility] Last Admin: 03/29/18 09:50 Dose: 10 mg Propylthiouracil (Propylthiouracil) 100 mg PO Q8H [facility] Stop: 03/30/18 12:01 Thiamine HCl (Vitamin B1 Tab) 200 mg PO Q8H [facility] - Labs Labs: 03/30/18 06:33 03/30/18 06:35 PT 29.7 SECONDS (9.7-12.2) H* 03/30/18 06:34 INR 2.7 03/30/18 06:34 APTT 45 SECONDS (21-34) H 03/30/18 06:34 - Constitutional Appears: No Acute Distress - Head Exam Head Exam: NORMAL INSPECTION - Eye Exam Pupil Exam: PERRL Additional comments: 2 mm sluggish - Neurological Exam Neuro motor strength exam: Left Upper Extremity: 0, Right Upper Extremity: 0, Left Lower Extremity: 0, Right Lower Extremity: 0 Additional comments: GCS- 4T on sedation. Assessment and Plan (1) Seizure Assessment & Plan: Case discussed with Dr. Hua, continue all current medical regimen. Recommend MRI of the brain without contrast, pending repeat EEG in am. Status: Acute <Osiris Hua - Last Filed: 03/31/18 11:24> Objective - Vital Signs/Intake and Output Vital Signs (last 24 hours): Temp Pulse Resp BP Pulse Ox 98.5 F 75 21 109/44 L 96 03/31/18 08:00 03/31/18 09:11 03/31/18 09:11 03/31/18 09:11 03/31/18 09:11 Intake and Output: 03/31/18 03/31/18 06:59 18:59 Intake Total 1787.8 347.0 Output Total 660 100 Balance 1127.8 247.0 - Medications Medications: Current Medications Albumin Human (Albumin Human 25% (12.5 Gm/50 Ml)) 12.5 gm IV Q12H [facility] Stop: 04/02/18 06:16 Last Admin: 03/31/18 05:18 Dose: 12.5 gm Ascorbic Acid (Vitamin C 500 Mg Tab) 500 mg PO DAILY [facility] Last Admin: 03/31/18 09:55 Dose: 500 mg Cholestyramine Resin (Prevalite) 4 gm PO Q8H [facility] Last Admin: 03/31/18 08:18 Dose: 4 gm Famotidine (Pepcid) 20 mg PO BID [facility] Last Admin: 03/31/18 09:55 Dose: 20 mg Folic Acid (Folic Acid) 1 mg PO DAILY [facility] Last Admin: 03/31/18 09:55 Dose: 1 mg Norepinephrine Bitartrate 4 mg (/ Dextrose) 254 mls @ 15.24 mls/hr IV .[id number] PRN; Protocol; 4 MCG/MIN PRN Reason: TITRATE PER MD ORDER Last Titration: 03/31/18 02:18 Dose: 0 mcg/min, 0 mls/hr Vasopressin 40 units/ Sodium (Chloride) 40 mls @ 0.6 mls/hr IV .Q24H [facility]; 0.01 UNITS/MIN PRN Reason: Protocol Last Admin: 03/30/18 21:13 Dose: 0.03 units/min, 1.8 mls/hr Vancomycin/Sodium Chloride (Vancomycin 1 Gm/Ns 200 Ml) 1 gm in 200 mls @ 166.7 mls/hr IVPB Q24H [facility] PRN Reason: Protocol Stop: 04/01/18 10:01 Last Admin: 03/31/18 09:54 Dose: 166.7 mls/hr Sodium Chloride (Sodium Chloride 0.9%) 1,000 mls @ 75 mls/hr IV .[id number] [facility] Last Admin: 03/31/18 00:29 Dose: Not Given Fluconazole (Diflucan Iv 100 Mg/50 Ml Ns) 50 mls @ 100 mls/hr IVPB Q24H [facility] PRN Reason: Protocol Last Admin: 03/30/18 17:35 Dose: 100 mls/hr Propofol (Diprivan) 1,000 mg in 100 mls @ 1.742 mls/hr IV .Q24H PRN; Protocol; 5 MCG/KG/MIN PRN Reason: TITRATE PER MD ORDER Last Admin: 03/30/18 06:29 Dose: 5 mcg/kg/min, 1.742 mls/hr Levetiracetam 1,500 mg/ (Dextrose) 115 mls @ 420 mls/hr IVPB Q12H [facility] Last Admin: 03/31/18 09:47 Dose: 420 mls/hr Cefepime HCl 1 gm/ Dextrose 50 mls @ 100 mls/hr IVPB Q12H [facility] PRN Reason: Protocol Last Admin: 03/30/18 22:31 Dose: 100 mls/hr Insulin Aspart (Novolog) 0 unit SC Q6H [facility] PRN Reason: Protocol Last Admin: 03/31/18 05:29 Dose: 2 unit Midodrine (Proamatine) 5 mg PO Q8H [facility] Last Admin: 03/31/18 05:30 Dose: 5 mg Multivitamins/Vitamin C (Multi-Delyn Liquid) 5 ml PO DAILY [facility] Last Admin: 03/31/18 09:55 Dose: 5 ml Propranolol HCl (Inderal) 10 mg PO DAILY [facility] Last Admin: 03/31/18 09:55 Dose: 10 mg Thiamine HCl (Vitamin B1 Tab) 200 mg PO Q8H [facility] Last Admin: 03/31/18 09:55 Dose: 200 mg - Labs Labs: 03/31/18 06:00 03/31/18 06:00 PT 25.4 SECONDS (9.7-12.2) H 03/31/18 06:00 INR 2.3 03/31/18 06:00 APTT 44 SECONDS (21-34) H 03/31/18 06:00 Assessment and Plan - Assessment and Plan (Free Text) Assessment: Plan continued: 1. Please also decrease the propofol so we may obtain the EEG 2. please contact when eeg is completed please contact dr whit Hua
[2018-03-30] MEDS: Vancomycin 1 gm/NS 200 ml 1 GM/200 ML BAG IVPB SCH (10:35)
[2018-03-30] MEDS: Potassium Chloride 20 mEq/15 ml LIQ UD PO SCH ×2 (10:36→16:49)
--- NOTE | 2018-03-30 10:39 | CP.PCM.PN ---
<Jeremias Ribeiro - Last Filed: 03/30/18 10:43> Subjective - Date & Time of Evaluation Date of Evaluation: 03/30/18 Time of Evaluation: 08:00 - Subjective Subjective: PGY4 GI Follow-up Pt seen and examined bedside unconscious no overnight events on cooling protocol ROS: could not be conducted Objective - Vital Signs/Intake and Output Vital Signs (last 24 hours): Temp Pulse Resp BP Pulse Ox 98.5 F 75 22 107/42 L 95 03/30/18 08:00 03/30/18 10:11 03/30/18 10:11 03/30/18 10:11 03/30/18 10:11 Intake and Output: 03/30/18 03/30/18 06:59 18:59 Intake Total 2299.4 106.0 Output Total 600 Balance 1699.4 106.0 - Medications Medications: Current Medications Acetaminophen (Tylenol 650mg/20.3ml Solution Ud) 650 mg PO Q4H PRN PRN Reason: Temperature above 100.6 Last Admin: 03/28/18 14:47 Dose: 650 mg Ascorbic Acid (Vitamin C 500 Mg Tab) 500 mg PO DAILY [facility] Last Admin: 03/30/18 10:36 Dose: 500 mg Cholestyramine Resin (Prevalite) 4 gm PO Q8H [facility] Last Admin: 03/30/18 08:41 Dose: 4 gm Famotidine (Pepcid) 20 mg PO BID [facility] Last Admin: 03/30/18 10:35 Dose: 20 mg Folic Acid (Folic Acid) 1 mg PO DAILY [facility] Last Admin: 03/30/18 10:36 Dose: 1 mg Norepinephrine Bitartrate 4 mg (/ Dextrose) 254 mls @ 15.24 mls/hr IV .[id number] PRN; Protocol; 4 MCG/MIN PRN Reason: TITRATE PER MD ORDER Last Titration: 03/30/18 01:04 Dose: 1.96 mcg/min, 7.5 mls/hr Vasopressin 40 units/ Sodium (Chloride) 40 mls @ 0.6 mls/hr IV .Q24H [facility]; 0.01 UNITS/MIN PRN Reason: Protocol Last Admin: 03/29/18 17:49 Dose: 0.03 units/min, 1.8 mls/hr Meropenem 500 mg/ Sodium (Chloride) 100 mls @ 100 mls/hr IVPB Q8 [facility] PRN Reason: Protocol Last Admin: 03/30/18 05:21 Dose: 100 mls/hr Vancomycin/Sodium Chloride (Vancomycin 1 Gm/Ns 200 Ml) 1 gm in 200 mls @ 166.7 mls/hr IVPB Q24H [facility] PRN Reason: Protocol Stop: 04/01/18 10:01 Last Admin: 03/30/18 10:35 Dose: 166.7 mls/hr Acyclovir 500 mg/ Sodium (Chloride) 100 mls @ 100 mls/hr IV Q12H [facility] PRN Reason: Protocol Last Admin: 03/30/18 04:21 Dose: 100 mls/hr Sodium Chloride (Sodium Chloride 0.9%) 1,000 mls @ 75 mls/hr IV .[id number] [facility] Last Admin: 03/30/18 01:00 Dose: 75 mls/hr Fluconazole (Diflucan Iv 100 Mg/50 Ml Ns) 50 mls @ 100 mls/hr IVPB Q24H [facility] PRN Reason: Protocol Last Admin: 03/29/18 17:46 Dose: 100 mls/hr Levetiracetam 1,000 mg/ Sodium (Chloride) 110 mls @ 420 mls/hr IVPB Q12H [facility] Last Admin: 03/30/18 01:01 Dose: 420 mls/hr Propofol (Diprivan) 1,000 mg in 100 mls @ 1.742 mls/hr IV .Q24H PRN; Protocol; 5 MCG/KG/MIN PRN Reason: TITRATE PER MD ORDER Last Admin: 03/30/18 06:29 Dose: 5 mcg/kg/min, 1.742 mls/hr Potassium Phosphate 15 mmole/ (Dextrose) 255 mls @ 42.5 mls/hr IVPB ONCE ONE Stop: 03/30/18 15:25 Insulin Aspart (Novolog) 0 unit SC Q6H [facility] PRN Reason: Protocol Last Admin: 03/30/18 06:00 Dose: Not Given Lactulose (Enulose) 20 gm PO BID [facility] Last Admin: 03/30/18 10:35 Dose: 20 gm Midodrine (Proamatine) 5 mg PO Q8H [facility] Last Admin: 03/30/18 05:21 Dose: 5 mg Multivitamins/Vitamin C (Multi-Delyn Liquid) 5 ml PO DAILY [facility] Phytonadione (Vitamin K Tab) 10 mg PO DAILY [facility] Stop: 03/31/18 10:01 Last Admin: 03/29/18 16:00 Dose: 10 mg Potassium Chloride (Potassium Chloride Oral Soln) 40 meq PO Q6H [facility] Stop: 03/30/18 15:31 Last Admin: 03/30/18 10:36 Dose: 40 meq Potassium Phos/Sodium Phos (Neutra-Phos) 1 pkt PO BID [facility] Last Admin: 03/29/18 17:59 Dose: 1 pkt Propranolol HCl (Inderal) 10 mg PO DAILY [facility] Last Admin: 03/30/18 10:35 Dose: 10 mg Propylthiouracil (Propylthiouracil) 100 mg PO Q8H [facility] Stop: 03/30/18 12:01 Last Admin: 03/30/18 10:36 Dose: 100 mg Thiamine HCl (Vitamin B1 Tab) 200 mg PO Q8H [facility] Last Admin: 03/30/18 10:35 Dose: 200 mg - Labs Labs: 03/30/18 06:33 03/30/18 06:35 PT 29.7 SECONDS (9.7-12.2) H* 03/30/18 06:34 INR 2.7 03/30/18 06:34 APTT 45 SECONDS (21-34) H 03/30/18 06:34 - Constitutional Appears: No Acute Distress - Head Exam Head Exam: ATRAUMATIC, NORMOCEPHALIC - Eye Exam Eye Exam: Scleral icterus Pupil Exam: Fixed - ENT Exam ENT Exam: Mucous Membranes Moist - Respiratory Exam Respiratory Exam: Clear to Ausculation Bilateral, NORMAL BREATHING PATTERN. absent: Rales, Rhonchi, Wheezes, Respiratory Distress - GI/Abdominal Exam GI & Abdominal Exam: Soft, Normal Bowel Sounds. absent: Distended, Firm, Guarding, Rigid, Tenderness, Organomegaly - Neurological Exam Neurological Exam: Alert, Awake, Oriented x3 - Psychiatric Exam Psychiatric exam: Normal Affect, Normal Mood - Skin Skin Exam: Dry, Intact, Normal Color, Warm Assessment and Plan - Assessment and Plan (Free Text) Assessment: Albina Jewell is a 72F w/ hx of hyperthyroidism who presented w/ near syncope, diarrhea, and abd pain. Pt was found to have acute cholecystitis on imaging. Course complicated with sepsis, rhabdomyolysis, thyroid storm, respiratory failure Elevate liver enzymes, etiology unknown, but likely multifactorial from thyroid storm, sepsis, mediation induced, rhabdo Repiratory Failure Diarrhea DDx: thyroid storm Thyroid storm MICHELLE Sepsis cholelithiasis Hypodense lesion in liver, small, inconclusive on CT Plan: -factor 2, 5, 8 levels pending -continue to monitor LFTs, ASt/ALT improving , bilirubin rising -recheck INR in the AM -Hep viral serologies neg -HIDA neg -CT revealed normal CBD, + cholelithiasis -recommend CT liver, once medially stable, not urgent, to eval hepatic lesion -initial rise of LFts may be 2/2 thyroid meds and storm -continue to monitor, will likely improve over time D/W Dr. Hall <Bib Hall - Last Filed: 03/30/18 19:21> Objective - Vital Signs/Intake and Output Vital Signs (last 24 hours): Temp Pulse Resp BP Pulse Ox 98.6 F 74 21 103/42 L 96 03/30/18 16:00 03/30/18 18:11 03/30/18 18:11 03/30/18 18:11 03/30/18 18:11 Intake and Output: 03/30/18 03/31/18 18:59 06:59 Intake Total 1754.5 Output Total 300 Balance 1454.5 - Medications Medications: Current Medications Acetaminophen (Tylenol 650mg/20.3ml Solution Ud) 650 mg PO Q4H PRN PRN Reason: Temperature above 100.6 Last Admin: 03/28/18 14:47 Dose: 650 mg Albumin Human (Albumin Human 25% (12.5 Gm/50 Ml)) 12.5 gm IV Q12H [facility] Stop: 04/02/18 06:16 Ascorbic Acid (Vitamin C 500 Mg Tab) 500 mg PO DAILY [facility] Last Admin: 03/30/18 10:36 Dose: 500 mg Cholestyramine Resin (Prevalite) 4 gm PO Q8H [facility] Last Admin: 03/30/18 16:50 Dose: 4 gm Famotidine (Pepcid) 20 mg PO BID [facility] Last Admin: 03/30/18 10:35 Dose: 20 mg Folic Acid (Folic Acid) 1 mg PO DAILY [facility] Last Admin: 03/30/18 10:36 Dose: 1 mg Norepinephrine Bitartrate 4 mg (/ Dextrose) 254 mls @ 15.24 mls/hr IV .[id number] PRN; Protocol; 4 MCG/MIN PRN Reason: TITRATE PER MD ORDER Last Titration: 03/30/18 01:04 Dose: 1.96 mcg/min, 7.5 mls/hr Vasopressin 40 units/ Sodium (Chloride) 40 mls @ 0.6 mls/hr IV .Q24H [facility]; 0.01 UNITS/MIN PRN Reason: Protocol Last Admin: 03/29/18 17:49 Dose: 0.03 units/min, 1.8 mls/hr Vancomycin/Sodium Chloride (Vancomycin 1 Gm/Ns 200 Ml) 1 gm in 200 mls @ 166.7 mls/hr IVPB Q24H [facility] PRN Reason: Protocol Stop: 04/01/18 10:01 Last Admin: 03/30/18 10:35 Dose: 166.7 mls/hr Sodium Chloride (Sodium Chloride 0.9%) 1,000 mls @ 75 mls/hr IV .[id number] [facility] Last Admin: 03/30/18 16:51 Dose: 75 mls/hr Fluconazole (Diflucan Iv 100 Mg/50 Ml Ns) 50 mls @ 100 mls/hr IVPB Q24H [facility] PRN Reason: Protocol Last Admin: 03/30/18 17:35 Dose: 100 mls/hr Propofol (Diprivan) 1,000 mg in 100 mls @ 1.742 mls/hr IV .Q24H PRN; Protocol; 5 MCG/KG/MIN PRN Reason: TITRATE PER MD ORDER Last Admin: 03/30/18 06:29 Dose: 5 mcg/kg/min, 1.742 mls/hr Levetiracetam 1,500 mg/ (Dextrose) 115 mls @ 420 mls/hr IVPB Q12H [facility] Cefepime HCl 1 gm/ Dextrose 50 mls @ 100 mls/hr IVPB Q12H [facility] PRN Reason: Protocol Last Admin: 03/30/18 12:59 Dose: 100 mls/hr Insulin Aspart (Novolog) 0 unit SC Q6H [facility] PRN Reason: Protocol Last Admin: 03/30/18 18:03 Dose: 2 unit Lactulose (Enulose) 20 gm PO BID [facility] Last Admin: 03/30/18 17:35 Dose: 20 gm Midodrine (Proamatine) 5 mg PO Q8H [facility] Last Admin: 03/30/18 13:44 Dose: 5 mg Multivitamins/Vitamin C (Multi-Delyn Liquid) 5 ml PO DAILY [facility] Last Admin: 03/30/18 11:05 Dose: 5 ml Phytonadione (Vitamin K Tab) 10 mg PO DAILY [facility] Stop: 03/31/18 10:01 Last Admin: 03/30/18 11:05 Dose: 10 mg Potassium Phos/Sodium Phos (Neutra-Phos) 1 pkt PO BID [facility] Last Admin: 03/30/18 17:35 Dose: 1 pkt Propranolol HCl (Inderal) 10 mg PO DAILY [facility] Last Admin: 03/30/18 10:35 Dose: 10 mg Thiamine HCl (Vitamin B1 Tab) 200 mg PO Q8H [facility] Last Admin: 03/30/18 10:35 Dose: 200 mg - Labs Labs: 03/30/18 06:33 03/30/18 06:35 PT 29.7 SECONDS (9.7-12.2) H* 03/30/18 06:34 INR 2.7 03/30/18 06:34 APTT 45 SECONDS (21-34) H 03/30/18 06:34 Attending/Attestation - Attestation I have personally seen and examined this patient.: Yes I have fully participated in the care of the patient.: Yes I have reviewed all pertinent clinical information, including history, physical exam and plan: Yes Notes (Text): 03/30/18 19:20 72 year old female with thyroid storm. SHe is critically ill in ICU. Suspect her overall clinical presentation including abnormal LFTs is due to her thyroid storm. Altered mental status does not appear to be related to any liver disease and probably more likely also is a consequence of thyroid disease.
[2018-03-30] MEDS: Potassium & Sodium Phosphate PO SCH ×2 (11:05→17:35)
[2018-03-30] MEDS: Multiple Vitamins Oral Solution PO SCH (11:05)
--- NOTE | 2018-03-30 13:16 | RAD ---
HISTORY: Evaluate endotracheal tube. COMPARISON: March 29, 2018. FINDINGS: LUNGS: Worsening pulmonary vascular congestion. No discrete infiltrates PLEURA: No significant pleural effusion identified, no pneumothorax apparent. CARDIOVASCULAR: Cardiomegaly. OSSEOUS STRUCTURES: No significant abnormalities. VISUALIZED UPPER ABDOMEN: Normal. OTHER FINDINGS: Endotracheal tube remains less than 2 cm above the kaila by in stable position. Stable position of left IJ catheter and nasogastric tube. IMPRESSION: Cardiomegaly and worsening CHF. Stable low lying endotracheal tube. Additional support apparatus also unchanged including center venous catheter and nasogastric tube.
--- NOTE | 2018-03-30 13:47 | CP.CCUPN ---
CCU Subjective - Physician Review Subjective (Free Text): Patient seen and examined at bedside. Patient intubated. not responsive. on low dose pressors norepi 2 mch and vaso 2.4 units/hr. no fevers overnight tolerating NG tube feeds 03/30/18 13:42 CCU Objective - Vital Signs / Intake & Output Vital Signs (Last 4 hours): Vital Signs Pulse Resp BP Pulse Ox 03/30/18 13:11 69 22 94/39 L 96 03/30/18 13:00 69 23 96 03/30/18 12:11 71 22 94/43 L 94 L 03/30/18 11:11 76 22 102/40 L 95 03/30/18 10:11 75 22 107/42 L 95 Intake and Output (Last 8hrs): Intake & Output 03/29/18 03/30/18 03/30/18 22:59 06:59 14:59 Intake Total 1725.8 1639.8 106.0 Output Total 640 420 Balance 1085.8 1219.8 106.0 Weight 131 lb Intake: IV 294 154 Intake, IV Amount 1231.8 995.8 86.0 Left Distal Port Internal 102.0 67.8 7.5 Jugular Left Medial Port Internal 13.6 13.6 1.7 Jugular Left Proximal Port 600 600 75 Internal Jugular left distal port y 16.2 14.4 1.8 left proximal port y 500 300 Tube Feeding 0 140 20 Other 200 350 Output: Urine 340 420 Urethral (Garcia) 340 420 Stool 300 Emesis 0 Other: # Bowel Movements 1 1 - Physical Exam Physical Exam Limitations: Negative for: Altered Mental Status Head: Positive for: Atraumatic, Normocephalic Pupils: Positive for: Sluggish Conjunctiva: Positive for: Normal Mouth: Positive for: Moist Mucous Membranes Respiratory/Chest: Positive for: Good Air Exchange, Rales. Negative for: Respiratory Distress, Accessory Muscle Use, Rhonchi Cardiovascular: Positive for: Regular Rate and Rhythm, Normal S1, S2. Negative for: Tachycardic Abdomen: Positive for: Normal Bowel Sounds. Negative for: Distention Neurological: Negative for: GCS=15 (GCS=3T) Skin: Positive for: Warm, Dry Psychiatric: Negative for: Alert, Oriented x 3 - Medications Active Medications: Active Medications Generic Name Dose Route Start Last Admin Trade Name Freq PRN Reason Stop Dose Admin Acetaminophen 650 mg 03/25/18 16:30 03/28/18 14:47 Tylenol 650mg/20.3ml Solution Ud PO 650 mg Q4H PRN Administration Temperature above 100.6 Ascorbic Acid 500 mg 03/30/18 10:00 03/30/18 10:36 Vitamin C 500 Mg Tab PO 500 mg DAILY NEREYDA Administration Cholestyramine Resin 4 gm 03/26/18 08:15 03/30/18 08:41 Prevalite PO 4 gm Q8H NEREYDA Administration Famotidine 20 mg 03/25/18 10:00 03/30/18 10:35 Pepcid PO 20 mg BID NEREYDA Administration Folic Acid 1 mg 03/30/18 10:00 03/30/18 10:36 Folic Acid PO 1 mg DAILY NEREYDA Administration Norepinephrine Bitartrate 4 mg 254 mls @ 15.24 mls/hr 03/25/18 17:51 01:04 / Dextrose IV 1.96 mcg/min .[id number] PRN 7.5 mls/hr TITRATE PER MD ORDER Titration Protocol 4 MCG/MIN Vasopressin 40 units/ Sodium 40 mls @ 0.6 mls/hr 03/26/18 18:15 03/29/18 17: 49 Chloride IV 0.03 units/min .Q24H NEREYDA 1.8 mls/hr Protocol Administration 0.01 UNITS/MIN Vancomycin/Sodium Chloride 1 gm in 200 mls @ 166.7 mls/hr 03/27/18 10:00 10:35 Vancomycin 1 Gm/Ns 200 Ml IVPB 04/01/18 10:01 166.7 mls/hr Q24H NEREYDA Administration Protocol Sodium Chloride 1,000 mls @ 75 mls/hr 03/27/18 15:15 03/30/18 01:00 Sodium Chloride 0.9% IV 75 mls/hr .[id number] NEREYDA Administration Fluconazole 50 mls @ 100 mls/hr 03/27/18 18:00 03/29/18 17:46 Diflucan Iv 100 Mg/50 Ml Ns IVPB 100 mls/hr Q24H NEREYDA Administration Protocol Propofol 1,000 mg in 100 mls @ 1.742 mls/hr 03/29/18 13:17 03/30/18 06:29 Diprivan IV 5 mcg/kg/min .Q24H PRN 1.742 mls/hr TITRATE PER MD ORDER Administration Protocol 5 MCG/KG/MIN Potassium Phosphate 15 mmole/ 255 mls @ 42.5 mls/hr 03/30/18 09:26 03/30/18 11:06 Dextrose IVPB 03/30/18 15:25 42.5 mls/hr ONCE ONE Administration Levetiracetam 1,500 mg/ 115 mls @ 420 mls/hr 03/30/18 21:00 Dextrose IVPB Q12H NEREYDA Cefepime HCl 1 gm/ Dextrose 50 mls @ 100 mls/hr 03/30/18 11:15 03/30/18 12:59 IVPB 100 mls/hr Q12H NEREYDA Administration Protocol Insulin Aspart 0 unit 03/27/18 12:00 03/30/18 13:02 Novolog SC 3 unit Q6H NEREYDA Administration Protocol Lactulose 20 gm 03/29/18 18:00 03/30/18 10:35 Enulose PO 20 gm BID NEREYDA Administration Midodrine 5 mg 03/27/18 14:00 03/30/18 05:21 Proamatine PO 5 mg Q8H NEREYDA Administration Multivitamins/Vitamin C 5 ml 03/30/18 10:00 03/30/18 11:05 Multi-Delyn Liquid PO 5 ml DAILY NEREYDA Administration Phytonadione 10 mg 03/29/18 15:30 03/30/18 11:05 Vitamin K Tab PO 03/31/18 10:01 10 mg DAILY NEREYDA Administration Potassium Chloride 40 meq 03/30/18 09:30 03/30/18 10:36 Potassium Chloride Oral Soln PO 03/30/18 15:31 40 meq Q6H NEREYDA Administration Potassium Phos/Sodium Phos 1 pkt 03/29/18 18:00 03/30/18 11:05 Neutra-Phos PO 1 pkt BID NEREYDA Administration Propranolol HCl 10 mg 03/26/18 10:00 03/30/18 10:35 Inderal PO 10 mg DAILY NEREYDA Administration Thiamine HCl 200 mg 03/30/18 09:45 03/30/18 10:35 Vitamin B1 Tab PO 200 mg Q8H NEREYDA Administration - Patient Studies Lab Studies: Microbiology Studies 03/24/18 20:46 Blood Culture - Final Blood NO GROWTH AFTER 5 DAYS Gram Stain - Final TEST NOT PERFORMED 03/24/18 20:46 Blood Culture - Final Blood NO GROWTH AFTER 5 DAYS Gram Stain - Final TEST NOT PERFORMED 03/25/18 16:00 Blood Culture - Preliminary Blood-Venous NO GROWTH AFTER 4 DAYS 03/25/18 16:30 Blood Culture - Preliminary Blood-Venous NO GROWTH AFTER 4 DAYS Lab Studies 03/30/18 03/30/18 03/30/18 Range/Units 06:35 06:35 06:35 WBC (4.8-10.8) K/uL RBC (3.80-5.20) Mil/uL Hgb (11.0-16.0) g/dL Hct (34.0-47.0) % MCV (81.0-99.0) fL MCH (27.0-31.0) pg MCHC (33.0-37.0) g/dL RDW (11.5-14.5) % Plt Count (130-400) K/uL MPV (7.2-11.7) fL Neut % (Auto) (50.0-75.0) % Lymph % (Auto) (20.0-40.0) % [place] % (Auto) (0.0-10.0) % Eos % (Auto) (0.0-4.0) % Baso % (Auto) (0.0-2.0) % Neut # (Auto) (1.8-7.0) K/uL Lymph # (Auto) (1.0-4.3) K/uL [place] # (Auto) (0.0-0.8) K/uL Eos # (Auto) (0.0-0.7) K/uL Baso # (Auto) (0.0-0.2) K/uL PT (9.7-12.2) SECONDS INR APTT (21-34) SECONDS Puncture Site pCO2 (35-45) mm/Hg pO2 (80-100) mm/Hg HCO3 (21-28) mmol/L ABG pH (7.35-7.45) ABG Total CO2 (22-28) mmol/L ABG O2 Saturation (95-98) % ABG Base Excess (-2.0-3.0) mmol/L ABG Hemoglobin (11.7-17.4) g/dL ABG Carboxyhemoglobin (0.5-1.5) % POC ABG HHb (Measured) (0.0-5.0) % ABG Methemoglobin (0.0-3.0) % Jake Test A-a O2 Difference mm/Hg Respiratory Index Hgb O2 Saturation (95.0-98.0) % Vent Mode Mechanical Rate FiO2 % Tidal Volume PEEP Sodium 142 (132-148) mmol/L Potassium 3.4 L (3.6-5.2) mmol/L Chloride 104 (98-107) mmol/L Carbon Dioxide 34 H (22-30) mmol/L Anion Gap 8 L (10-20) BUN 35 H (7-17) mg/dL Creatinine 0.5 L (0.7-1.2) mg/dL Est GFR ( Amer) > 60 Est GFR (Non-Af Amer) > 60 Random Glucose 119 H (65-105) mg/dL Lactic Acid (0.7-2.1) mmol/L Calcium 7.1 L (8.6-10.4) mg/dl Phosphorus 1.6 L (2.5-4.5) mg/dL Magnesium 1.7 (1.6-2.3) mg/dL Total Bilirubin 10.3 H (0.2-1.3) mg/dL AST 1055 H (14-36) U/L ALT 687 H D (9-52) U/L Alkaline Phosphatase 76 (38-126) U/L Ammonia 27 D (9-33) umol/L Total Protein 4.8 L (6.3-8.3) g/dL Albumin 2.0 L (3.5-5.0) g/dL Globulin 2.8 (2.2-3.9) gm/dL Albumin/Globulin Ratio 0.7 L (1.0-2.1) Free T4 5.74 H (0.78-2.19) ng/dL Thyroxine (T4) 7.65 (5.5-11.0) ug/dL Free T3 pg/mL 9.67 H (2.77-5.27) pg/mL TSH 3rd Generation < 0.02 L (0.46-4.68) mIU/L Urine Color (YELLOW) Urine Clarity (Clear) Urine pH (5.0-8.0) Ur Specific [place] (1.003-1.030) Urine Protein (NEGATIVE) mg/dL Urine Glucose (UA) (Normal) mg/dL Urine Ketones (NEGATIVE) mg/dL Urine Blood (NEGATIVE) Urine Nitrate (NEGATIVE) Urine Bilirubin (NEGATIVE) Urine Urobilinogen (0.2-1.0) mg/dL Ur Leukocyte Esterase (Negative) Isabela/uL Urine WBC (Auto) (0-5) /hpf Urine RBC (Auto) (0-3) /hpf Ur Squamous Epith Cells (0-5) /hpf Urine Bacteria (<OCC) 03/30/18 03/30/18 03/30/18 Range/Units 06:34 06:33 06:31 WBC 11.1 H (4.8-10.8) K/uL RBC 3.73 L (3.80-5.20) Mil/uL Hgb 11.9 (11.0-16.0) g/dL Hct 35.1 (34.0-47.0) % MCV 94.1 (81.0-99.0) fL MCH 31.9 H (27.0-31.0) pg MCHC 33.9 (33.0-37.0) g/dL RDW 14.5 (11.5-14.5) % Plt Count 80 L (130-400) K/uL MPV 10.7 (7.2-11.7) fL Neut % (Auto) 79.7 H (50.0-75.0) % Lymph % (Auto) 11.4 L (20.0-40.0) % [place] % (Auto) 5.7 (0.0-10.0) % Eos % (Auto) 3.0 (0.0-4.0) % Baso % (Auto) 0.2 (0.0-2.0) % Neut # (Auto) 8.8 H (1.8-7.0) K/uL Lymph # (Auto) 1.3 (1.0-4.3) K/uL [place] # (Auto) 0.6 (0.0-0.8) K/uL Eos # (Auto) 0.3 (0.0-0.7) K/uL Baso # (Auto) 0.0 (0.0-0.2) K/uL PT 29.7 H* (9.7-12.2) SECONDS INR 2.7 APTT 45 H (21-34) SECONDS Puncture Site pCO2 (35-45) mm/Hg pO2 (80-100) mm/Hg HCO3 (21-28) mmol/L ABG pH (7.35-7.45) ABG Total CO2 (22-28) mmol/L ABG O2 Saturation (95-98) % ABG Base Excess (-2.0-3.0) mmol/L ABG Hemoglobin (11.7-17.4) g/dL ABG Carboxyhemoglobin (0.5-1.5) % POC ABG HHb (Measured) (0.0-5.0) % ABG Methemoglobin (0.0-3.0) % Jake Test A-a O2 Difference mm/Hg Respiratory Index Hgb O2 Saturation (95.0-98.0) % Vent Mode Mechanical Rate FiO2 % Tidal Volume PEEP Sodium (132-148) mmol/L Potassium (3.6-5.2) mmol/L Chloride (98-107) mmol/L Carbon Dioxide (22-30) mmol/L Anion Gap (10-20) BUN (7-17) mg/dL Creatinine (0.7-1.2) mg/dL Est GFR ( Amer) Est GFR (Non-Af Amer) Random Glucose (65-105) mg/dL Lactic Acid (0.7-2.1) mmol/L Calcium (8.6-10.4) mg/dl Phosphorus (2.5-4.5) mg/dL Magnesium (1.6-2.3) mg/dL Total Bilirubin (0.2-1.3) mg/dL AST (14-36) U/L ALT (9-52) U/L Alkaline Phosphatase (38-126) U/L Ammonia (9-33) umol/L Total Protein (6.3-8.3) g/dL Albumin (3.5-5.0) g/dL Globulin (2.2-3.9) gm/dL Albumin/Globulin Ratio (1.0-2.1) Free T4 (0.78-2.19) ng/dL Thyroxine (T4) (5.5-11.0) ug/dL Free T3 pg/mL (2.77-5.27) pg/mL TSH 3rd Generation (0.46-4.68) mIU/L Urine Color Martha (YELLOW) Urine Clarity Clear (Clear) Urine pH 6.0 (5.0-8.0) Ur Specific [place] 1.016 (1.003-1.030) Urine Protein Negative (NEGATIVE) mg/dL Urine Glucose (UA) 1+ (Normal) mg/dL Urine Ketones Negative (NEGATIVE) mg/dL Urine Blood 1+ H (NEGATIVE) Urine Nitrate Negative (NEGATIVE) Urine Bilirubin 1+ H (NEGATIVE) Urine Urobilinogen Normal (0.2-1.0) mg/dL Ur Leukocyte Esterase Neg (Negative) Isabela/uL Urine WBC (Auto) 7 H (0-5) /hpf Urine RBC (Auto) 16 H (0-3) /hpf Ur Squamous Epith Cells < 1 (0-5) /hpf Urine Bacteria Rare (<OCC) 03/30/18 03/29/18 03/29/18 Range/Units 05:30 15:29 15:20 WBC (4.8-10.8) K/uL RBC (3.80-5.20) Mil/uL Hgb (11.0-16.0) g/dL Hct (34.0-47.0) % MCV (81.0-99.0) fL MCH (27.0-31.0) pg MCHC (33.0-37.0) g/dL RDW (11.5-14.5) % Plt Count (130-400) K/uL MPV (7.2-11.7) fL Neut % (Auto) (50.0-75.0) % Lymph % (Auto) (20.0-40.0) % [place] % (Auto) (0.0-10.0) % Eos % (Auto) (0.0-4.0) % Baso % (Auto) (0.0-2.0) % Neut # (Auto) (1.8-7.0) K/uL Lymph # (Auto) (1.0-4.3) K/uL [place] # (Auto) (0.0-0.8) K/uL Eos # (Auto) (0.0-0.7) K/uL Baso # (Auto) (0.0-0.2) K/uL PT 30.2 H* (9.7-12.2) SECONDS INR 2.8 APTT (21-34) SECONDS Puncture Site Rradial pCO2 37 (35-45) mm/Hg pO2 79 L (80-100) mm/Hg HCO3 32.2 H (21-28) mmol/L ABG pH 7.55 H (7.35-7.45) ABG Total CO2 33.5 H (22-28) mmol/L ABG O2 Saturation 99.0 H (95-98) % ABG Base Excess 9.4 H (-2.0-3.0) mmol/L ABG Hemoglobin 11.6 L (11.7-17.4) g/dL ABG Carboxyhemoglobin 2.4 H (0.5-1.5) % POC ABG HHb (Measured) 1.0 (0.0-5.0) % ABG Methemoglobin 1.0 (0.0-3.0) % Jake Test Pos A-a O2 Difference 231.0 mm/Hg Respiratory Index 2.9 Hgb O2 Saturation 95.5 (95.0-98.0) % Vent Mode Prvc Mechanical Rate 12 FiO2 50.0 % Tidal Volume 380 PEEP 5 Sodium (132-148) mmol/L Potassium (3.6-5.2) mmol/L Chloride (98-107) mmol/L Carbon Dioxide (22-30) mmol/L Anion Gap (10-20) BUN (7-17) mg/dL Creatinine (0.7-1.2) mg/dL Est GFR ( Amer) Est GFR (Non-Af Amer) Random Glucose (65-105) mg/dL Lactic Acid 1.7 (0.7-2.1) mmol/L Calcium (8.6-10.4) mg/dl Phosphorus (2.5-4.5) mg/dL Magnesium (1.6-2.3) mg/dL Total Bilirubin (0.2-1.3) mg/dL AST (14-36) U/L ALT (9-52) U/L Alkaline Phosphatase (38-126) U/L Ammonia (9-33) umol/L Total Protein (6.3-8.3) g/dL Albumin (3.5-5.0) g/dL Globulin (2.2-3.9) gm/dL Albumin/Globulin Ratio (1.0-2.1) Free T4 (0.78-2.19) ng/dL Thyroxine (T4) (5.5-11.0) ug/dL Free T3 pg/mL (2.77-5.27) pg/mL TSH 3rd Generation (0.46-4.68) mIU/L Urine Color (YELLOW) Urine Clarity (Clear) Urine pH (5.0-8.0) Ur Specific [place] (1.003-1.030) Urine Protein (NEGATIVE) mg/dL Urine Glucose (UA) (Normal) mg/dL Urine Ketones (NEGATIVE) mg/dL Urine Blood (NEGATIVE) Urine Nitrate (NEGATIVE) Urine Bilirubin (NEGATIVE) Urine Urobilinogen (0.2-1.0) mg/dL Ur Leukocyte Esterase (Negative) Isabela/uL Urine WBC (Auto) (0-5) /hpf Urine RBC (Auto) (0-3) /hpf Ur Squamous Epith Cells (0-5) /hpf Urine Bacteria (<OCC) Laboratory Results - last 24 hr 03/29/18 03/29/18 03/30/18 15:20 15:29 05:30 WBC RBC Hgb Hct MCV MCH MCHC RDW Plt Count MPV Neut % (Auto) Lymph % (Auto) [place] % (Auto) Eos % (Auto) Baso % (Auto) Neut # (Auto) Lymph # (Auto) [place] # (Auto) Eos # (Auto) Baso # (Auto) PT 30.2 H* INR 2.8 APTT Puncture Site Rradial pCO2 37 pO2 79 L HCO3 32.2 H ABG pH 7.55 H ABG Total CO2 33.5 H ABG O2 Saturation 99.0 H ABG Base Excess 9.4 H ABG Hemoglobin 11.6 L ABG Carboxyhemoglobin 2.4 H POC ABG HHb (Measured) 1.0 ABG Methemoglobin 1.0 Jake Test Pos A-a O2 Difference 231.0 Respiratory Index 2.9 Hgb O2 Saturation 95.5 Vent Mode Prvc Mechanical Rate 12 FiO2 50.0 Tidal Volume 380 PEEP 5 Sodium Potassium Chloride Carbon Dioxide Anion Gap BUN Creatinine Est GFR ( Amer) Est GFR (Non-Af Amer) Random Glucose Lactic Acid 1.7 Calcium Phosphorus Magnesium Total Bilirubin AST ALT Alkaline Phosphatase Ammonia Total Protein Albumin Globulin Albumin/Globulin Ratio Free T4 Thyroxine (T4) Free T3 pg/mL TSH 3rd Generation Urine Color Urine Clarity Urine pH Ur Specific [place] Urine Protein Urine Glucose (UA) Urine Ketones Urine Blood Urine Nitrate Urine Bilirubin Urine Urobilinogen Ur Leukocyte Esterase Urine WBC (Auto) Urine RBC (Auto) Ur Squamous Epith Cells Urine Bacteria 03/30/18 03/30/18 03/30/18 06:31 06:33 06:34 WBC 11.1 H RBC 3.73 L Hgb 11.9 Hct 35.1 MCV 94.1 MCH 31.9 H MCHC 33.9 RDW 14.5 Plt Count 80 L MPV 10.7 Neut % (Auto) 79.7 H Lymph % (Auto) 11.4 L [place] % (Auto) 5.7 Eos % (Auto) 3.0 Baso % (Auto) 0.2 Neut # (Auto) 8.8 H Lymph # (Auto) 1.3 [place] # (Auto) 0.6 Eos # (Auto) 0.3 Baso # (Auto) 0.0 PT 29.7 H* INR 2.7 APTT 45 H Puncture Site pCO2 pO2 HCO3 ABG pH ABG Total CO2 ABG O2 Saturation ABG Base Excess ABG Hemoglobin ABG Carboxyhemoglobin POC ABG HHb (Measured) ABG Methemoglobin Jake Test A-a O2 Difference Respiratory Index Hgb O2 Saturation Vent Mode Mechanical Rate FiO2 Tidal Volume PEEP Sodium Potassium Chloride Carbon Dioxide Anion Gap BUN Creatinine Est GFR ( Amer) Est GFR (Non-Af Amer) Random Glucose Lactic Acid Calcium Phosphorus Magnesium Total Bilirubin AST ALT Alkaline Phosphatase Ammonia Total Protein Albumin Globulin Albumin/Globulin Ratio Free T4 Thyroxine (T4) Free T3 pg/mL TSH 3rd Generation Urine Color Martha Urine Clarity Clear Urine pH 6.0 Ur Specific [place] 1.016 Urine Protein Negative Urine Glucose (UA) 1+ Urine Ketones Negative Urine Blood 1+ H Urine Nitrate Negative Urine Bilirubin 1+ H Urine Urobilinogen Normal Ur Leukocyte Esterase Neg Urine WBC (Auto) 7 H Urine RBC (Auto) 16 H Ur Squamous Epith Cells < 1 Urine Bacteria Rare 03/30/18 03/30/18 03/30/18 06:35 06:35 06:35 WBC RBC Hgb Hct MCV MCH MCHC RDW Plt Count MPV Neut % (Auto) Lymph % (Auto) [place] % (Auto) Eos % (Auto) Baso % (Auto) Neut # (Auto) Lymph # (Auto) [place] # (Auto) Eos # (Auto) Baso # (Auto) PT INR APTT Puncture Site pCO2 pO2 HCO3 ABG pH ABG Total CO2 ABG O2 Saturation ABG Base Excess ABG Hemoglobin ABG Carboxyhemoglobin POC ABG HHb (Measured) ABG Methemoglobin Jake Test A-a O2 Difference Respiratory Index Hgb O2 Saturation Vent Mode Mechanical Rate FiO2 Tidal Volume PEEP Sodium 142 Potassium 3.4 L Chloride 104 Carbon Dioxide 34 H Anion Gap 8 L BUN 35 H Creatinine 0.5 L Est GFR ( Amer) > 60 Est GFR (Non-Af Amer) > 60 Random Glucose 119 H Lactic Acid Calcium 7.1 L Phosphorus 1.6 L Magnesium 1.7 Total Bilirubin 10.3 H AST 1055 H ALT 687 H D Alkaline Phosphatase 76 Ammonia 27 D Total Protein 4.8 L Albumin 2.0 L Globulin 2.8 Albumin/Globulin Ratio 0.7 L Free T4 5.74 H Thyroxine (T4) 7.65 Free T3 pg/mL 9.67 H TSH 3rd Generation < 0.02 L Urine Color Urine Clarity Urine pH Ur Specific [place] Urine Protein Urine Glucose (UA) Urine Ketones Urine Blood Urine Nitrate Urine Bilirubin Urine Urobilinogen Ur Leukocyte Esterase Urine WBC (Auto) Urine RBC (Auto) Ur Squamous Epith Cells Urine Bacteria Fingerstick Blood Sugar Results: 200 Review of Systems - Constitutional Additional comments: unable to obtain ROS 2nd intubation Assessment/Plan - Assessment and Plan (Free Text) Assessment: AMS: suspect encephalopthy metabolic (hepatic), drug related (low pre-test proability) and/or infectious(possible):ammonia level decreasing, pt/inr improving, continue neurology follow up, MRi pending at [facility] (MRI is closed as per RN-a p supervisor) -shock: titrate off pressors, lactic normalizing -NG tube feeds -MICHELLE: resolved -hyperthyroidism:continue as per endocrine -chronic systolic heart failure:continue to monitor, titrate norepi to keep MAP >65 -dvt ppx INR >2.0 -PUD ppx protonix Prognosis guarded pending MRI eval cc time 45 minutes d/w daughters at bedside regarding current clinical management -Family requested that patient has an accepting physician at [facility] Dr. August Noe -Called [facility] ICu physician Dr. Yang at [phone] -During my conversation, there were no ICu bed s available as per Dr. Yang cc time 55 miuntes including time spent coordinating care for transfer to [facility]. - Date & Time Date: 03/30/18 Time: 13:50
--- NOTE | 2018-03-30 17:00 | PN ---
DATE: ICU, room 17 This is a 72-year-old female with supervening acute respiratory failure, currently intubated and unresponsive, and is now being followed closely for metabolic management of recent thyrotoxicosis as noted thereof. She was started on high dose medical therapy with thioureas and her biochemical indices have improved accordingly as noted. Her latest chemistry today showed a BUN of 35, sodium 142, potassium 3.4, chloride 104, CO2 of 34, glucose 119, and creatinine 0.5. Her latest thyroid studies showed a T4 of 7.67 with a free T4 of 5.74 and a free T3 of 9.67 and a TSH of less than 0.02. The TSH suppression will take months to improve, but the most important and total T4, free T4, and free T3 have improved accordingly as noted. We will continue the medical therapy with PTU as given, but would titrate down to at least 150 every 8 hours as these are very short-acting thioureas. We will obtain serial chemistries and supplement accordingly as noted. We will follow up. Ani House MD
[2018-03-30] MEDS: Fluconazole IV 100mg/50 ml NS 50 ML IVPB SCH (17:35)
[2018-03-30 18:53] LABS: TSI 401 % baseline (<140)
[2018-03-30] MEDS: Albumin Human 25% (12.5 gm/50 ml) IV SCH (19:47)
[2018-03-31 00:09] LABS: SPECIMEN SOURCE Serum
[2018-03-31] MEDS: Sodium Chloride 0.9% 1,000 ML IV SCH ×2 (00:29→17:57)
[2018-03-31] MEDS: (Novolog) Insulin Aspart, Recombinant 100 u/ml 10 ml vial SC SCH ×5 (00:33→23:28)
[2018-03-31] MEDS: Cholestyramine 4 gm/5.5 gm UD Packet PO SCH ×4 (00:34→23:27)
[2018-03-31 04:44] LABS: ABG ALLEN TEST POS; ARTERIAL BLOOD GAS HCO3 31.3 mmol/L (21-28); ARTERIAL BLOOD GAS O2 SAT 98.9 % (95-98); ARTERIAL BLOOD GAS PCO2 40 mm/Hg (35-45); ARTERIAL BLOOD GAS PH 7.51 (7.35-7.45); ARTERIAL BLOOD GAS PO2 82 mm/Hg (80-100); ARTERIAL BLOOD GAS TCO2 33.1 mmol/L (22-28)
[2018-03-31] MEDS: Albumin Human 25% (12.5 gm/50 ml) IV SCH ×2 (05:18→17:58)
[2018-03-31 06:10] LABS: BASO % 0.3 % (0.0-2.0); EOS # 0.4 K/uL (0.0-0.7); EOS % 3.6 % (0.0-4.0); HEMOGLOBIN 11.6 g/dL (11.0-16.0); LYMPH # 1.5 K/uL (1.0-4.3); LYMPH % 14.1 % (20.0-40.0); MEAN CELL VOLUME 94.5 fL (81.0-99.0); MEAN CORPUSCULAR HGB CONC 33.9 g/dL (33.0-37.0); MEAN PLATELET VOLUME 11.3 fL (7.2-11.7); MONO # 0.9 K/uL (0.0-0.8); MONO % 8.5 % (0.0-10.0); NEUT # 7.7 K/uL (1.8-7.0); NEUT % 73.5 % (50.0-75.0); NRBC % 0.1 % (0.0-2.0); RBC 3.62 Mil/uL (3.80-5.20); WHITE BLOOD COUNT 10.5 K/uL (4.8-10.8)
[2018-03-31 06:16] LABS: INR 2.3; PROTHROMBIN TIME 25.4 SECONDS (9.7-12.2)
[2018-03-31 06:24] LABS: ALB/GLOB RATIO 0.6 (1.0-2.1); ALBUMIN 1.9 g/dL (3.5-5.0); ALT/SGPT 470 U/L (9-52); AST/SGOT 512 U/L (14-36); BLOOD UREA NITROGEN 34 mg/dL (7-17); CALCIUM 7.6 mg/dl (8.6-10.4); GFR AFRICAN-AMERICAN > 60; GFR NON-AFRICAN AMERICAN > 60
--- NOTE | 2018-03-31 07:02 | CP.PCM.PN ---
Subjective - Date & Time of Evaluation Date of Evaluation: 03/31/18 Time of Evaluation: 07:02 - Subjective Subjective: Ms. Jewell was seen and examined at the bedside in ICU. She is on mechanical ventilator on PRVC mode. Her pupils are reactive to light with 3 mm size equal bilaterally, + corneal reflex, weak gag reflex, with minimally withdrawing from any noxious stimuli with GCS- 4T. with minimal opening of bilateral eyelids as a response to noxious stimuli. At present, she is on vasopressin and levophed , and diprivan drip for sedation. There was no untoward events overnight. Objective - Vital Signs/Intake and Output Vital Signs (last 24 hours): Temp Pulse Resp BP Pulse Ox 98 F 78 23 111/44 L 97 03/31/18 04:00 03/31/18 06:11 03/31/18 06:11 03/31/18 06:11 03/31/18 06:11 Intake and Output: 03/31/18 03/31/18 06:59 18:59 Intake Total 1787.8 Output Total 660 Balance 1127.8 - Medications Medications: Current Medications Acetaminophen (Tylenol 650mg/20.3ml Solution Ud) 650 mg PO Q4H PRN PRN Reason: Temperature above 100.6 Last Admin: 03/28/18 14:47 Dose: 650 mg Albumin Human (Albumin Human 25% (12.5 Gm/50 Ml)) 12.5 gm IV Q12H [facility] Stop: 04/02/18 06:16 Last Admin: 03/31/18 05:18 Dose: 12.5 gm Ascorbic Acid (Vitamin C 500 Mg Tab) 500 mg PO DAILY [facility] Last Admin: 03/30/18 10:36 Dose: 500 mg Cholestyramine Resin (Prevalite) 4 gm PO Q8H [facility] Last Admin: 03/31/18 00:34 Dose: 4 gm Famotidine (Pepcid) 20 mg PO BID [facility] Last Admin: 03/30/18 19:47 Dose: 20 mg Folic Acid (Folic Acid) 1 mg PO DAILY [facility] Last Admin: 03/30/18 10:36 Dose: 1 mg Norepinephrine Bitartrate 4 mg (/ Dextrose) 254 mls @ 15.24 mls/hr IV .[id number] PRN; Protocol; 4 MCG/MIN PRN Reason: TITRATE PER MD ORDER Last Titration: 03/31/18 02:18 Dose: 0 mcg/min, 0 mls/hr Vasopressin 40 units/ Sodium (Chloride) 40 mls @ 0.6 mls/hr IV .Q24H NEREYDA; 0.01 UNITS/MIN PRN Reason: Protocol Last Admin: 03/30/18 21:13 Dose: 0.03 units/min, 1.8 mls/hr Vancomycin/Sodium Chloride (Vancomycin 1 Gm/Ns 200 Ml) 1 gm in 200 mls @ 166.7 mls/hr IVPB Q24H NEREYDA PRN Reason: Protocol Stop: 04/01/18 10:01 Last Admin: 03/30/18 10:35 Dose: 166.7 mls/hr Sodium Chloride (Sodium Chloride 0.9%) 1,000 mls @ 75 mls/hr IV .[id number] [facility] Last Admin: 03/31/18 00:29 Dose: Not Given Fluconazole (Diflucan Iv 100 Mg/50 Ml Ns) 50 mls @ 100 mls/hr IVPB Q24H NEREYDA PRN Reason: Protocol Last Admin: 03/30/18 17:35 Dose: 100 mls/hr Propofol (Diprivan) 1,000 mg in 100 mls @ 1.742 mls/hr IV .Q24H PRN; Protocol; 5 MCG/KG/MIN PRN Reason: TITRATE PER MD ORDER Last Admin: 03/30/18 06:29 Dose: 5 mcg/kg/min, 1.742 mls/hr Levetiracetam 1,500 mg/ (Dextrose) 115 mls @ 420 mls/hr IVPB Q12H [facility] Last Admin: 03/30/18 21:14 Dose: 420 mls/hr Cefepime HCl 1 gm/ Dextrose 50 mls @ 100 mls/hr IVPB Q12H NEREYDA PRN Reason: Protocol Last Admin: 03/30/18 22:31 Dose: 100 mls/hr Insulin Aspart (Novolog) 0 unit SC Q6H NEREYDA PRN Reason: Protocol Last Admin: 03/31/18 05:29 Dose: 2 unit Lactulose (Enulose) 20 gm PO BID [facility] Last Admin: 03/30/18 17:35 Dose: 20 gm Midodrine (Proamatine) 5 mg PO Q8H [facility] Last Admin: 05/21/18 05:30 Dose: 5 mg Multivitamins/Vitamin C (Multi-Delyn Liquid) 5 ml PO DAILY [facility] Last Admin: 03/30/18 11:05 Dose: 5 ml Phytonadione (Vitamin K Tab) 10 mg PO DAILY NEREYDA Stop: 03/31/18 10:01 Last Admin: 03/30/18 11:05 Dose: 10 mg Potassium Phos/Sodium Phos (Neutra-Phos) 1 pkt PO BID [facility] Last Admin: 03/30/18 17:35 Dose: 1 pkt Propranolol HCl (Inderal) 10 mg PO DAILY [facility] Last Admin: 03/30/18 10:35 Dose: 10 mg Thiamine HCl (Vitamin B1 Tab) 200 mg PO Q8H [facility] Last Admin: 03/31/18 01:06 Dose: 200 mg - Labs Labs: 03/31/18 06:00 03/31/18 06:00 PT 25.4 SECONDS (9.7-12.2) H 03/31/18 06:00 INR 2.3 03/31/18 06:00 APTT 44 SECONDS (21-34) H 03/31/18 06:00 - Constitutional Appears: No Acute Distress - Head Exam Head Exam: NORMAL INSPECTION - Eye Exam Pupil Exam: PERRL Additional comments: 3 mm reactive - Neurological Exam Neuro motor strength exam: Left Upper Extremity: 0, Right Upper Extremity: 0, Left Lower Extremity: 0, Right Lower Extremity: 0 Additional comments: GCS- 4T Assessment and Plan (1) Seizure Assessment & Plan: Case discussed with Dr. Gross, continue all current medical regimen. Recommend MRI of the brain without contrast, pending repeat EEG today. Recommend to treat any electrolyte abnormalities. Status: Acute
--- NOTE | 2018-03-31 07:57 | CP.PCM.PN ---
Subjective - Date & Time of Evaluation Date of Evaluation: 03/31/18 Time of Evaluation: 07:50 - Subjective Subjective: remains intubated. awaiting MRI Objective - Vital Signs/Intake and Output Vital Signs (last 24 hours): Temp Pulse Resp BP Pulse Ox 98 F 78 23 111/44 L 97 03/31/18 04:00 03/31/18 06:11 03/31/18 06:11 03/31/18 06:11 03/31/18 06:11 Intake and Output: 03/31/18 03/31/18 06:59 18:59 Intake Total 1787.8 Output Total 660 Balance 1127.8 - Medications Medications: Current Medications Acetaminophen (Tylenol 650mg/20.3ml Solution Ud) 650 mg PO Q4H PRN PRN Reason: Temperature above 100.6 Last Admin: 03/28/18 14:47 Dose: 650 mg Albumin Human (Albumin Human 25% (12.5 Gm/50 Ml)) 12.5 gm IV Q12H [facility] Stop: 04/02/18 06:16 Last Admin: 03/31/18 05:18 Dose: 12.5 gm Ascorbic Acid (Vitamin C 500 Mg Tab) 500 mg PO DAILY [facility] Last Admin: 03/30/18 10:36 Dose: 500 mg Cholestyramine Resin (Prevalite) 4 gm PO Q8H [facility] Last Admin: 03/31/18 00:34 Dose: 4 gm Famotidine (Pepcid) 20 mg PO BID [facility] Last Admin: 03/30/18 19:47 Dose: 20 mg Folic Acid (Folic Acid) 1 mg PO DAILY [facility] Last Admin: 03/30/18 10:36 Dose: 1 mg Norepinephrine Bitartrate 4 mg (/ Dextrose) 254 mls @ 15.24 mls/hr IV .[id number] PRN; Protocol; 4 MCG/MIN PRN Reason: TITRATE PER MD ORDER Last Titration: 03/31/18 02:18 Dose: 0 mcg/min, 0 mls/hr Vasopressin 40 units/ Sodium (Chloride) 40 mls @ 0.6 mls/hr IV .Q24H [facility]; 0.01 UNITS/MIN PRN Reason: Protocol Last Admin: 03/30/18 21:13 Dose: 0.03 units/min, 1.8 mls/hr Vancomycin/Sodium Chloride (Vancomycin 1 Gm/Ns 200 Ml) 1 gm in 200 mls @ 166.7 mls/hr IVPB Q24H [facility] PRN Reason: Protocol Stop: 04/01/18 10:01 Last Admin: 03/30/18 10:35 Dose: 166.7 mls/hr Sodium Chloride (Sodium Chloride 0.9%) 1,000 mls @ 75 mls/hr IV .[id number] [facility] Last Admin: 03/31/18 00:29 Dose: Not Given Fluconazole (Diflucan Iv 100 Mg/50 Ml Ns) 50 mls @ 100 mls/hr IVPB Q24H [facility] PRN Reason: Protocol Last Admin: 03/30/18 17:35 Dose: 100 mls/hr Propofol (Diprivan) 1,000 mg in 100 mls @ 1.742 mls/hr IV .Q24H PRN; Protocol; 5 MCG/KG/MIN PRN Reason: TITRATE PER MD ORDER Last Admin: 03/30/18 06:29 Dose: 5 mcg/kg/min, 1.742 mls/hr Levetiracetam 1,500 mg/ (Dextrose) 115 mls @ 420 mls/hr IVPB Q12H [facility] Last Admin: 03/30/18 21:14 Dose: 420 mls/hr Cefepime HCl 1 gm/ Dextrose 50 mls @ 100 mls/hr IVPB Q12H [facility] PRN Reason: Protocol Last Admin: 03/30/18 22:31 Dose: 100 mls/hr Insulin Aspart (Novolog) 0 unit SC Q6H [facility] PRN Reason: Protocol Last Admin: 03/31/18 05:29 Dose: 2 unit Lactulose (Enulose) 20 gm PO BID [facility] Last Admin: 03/30/18 17:35 Dose: 20 gm Midodrine (Proamatine) 5 mg PO Q8H [facility] Last Admin: 03/31/18 05:30 Dose: 5 mg Multivitamins/Vitamin C (Multi-Delyn Liquid) 5 ml PO DAILY [facility] Last Admin: 03/30/18 11:05 Dose: 5 ml Phytonadione (Vitamin K Tab) 10 mg PO DAILY [facility] Stop: 03/31/18 10:01 Last Admin: 03/30/18 11:05 Dose: 10 mg Potassium Phos/Sodium Phos (Neutra-Phos) 1 pkt PO BID [facility] Last Admin: 03/30/18 17:35 Dose: 1 pkt Propranolol HCl (Inderal) 10 mg PO DAILY [facility] Last Admin: 03/30/18 10:35 Dose: 10 mg Thiamine HCl (Vitamin B1 Tab) 200 mg PO Q8H [facility] Last Admin: 03/31/18 01:06 Dose: 200 mg - Labs Labs: 03/31/18 06:00 03/31/18 06:00 PT 25.4 SECONDS (9.7-12.2) H 03/31/18 06:00 INR 2.3 03/31/18 06:00 APTT 44 SECONDS (21-34) H 03/31/18 06:00 - Constitutional Appears: Non-toxic - Head Exam Head Exam: NORMAL INSPECTION - Eye Exam Eye Exam: Normal appearance - ENT Exam ENT Exam: Mucous Membranes Moist - Neck Exam Neck Exam: absent: Lymphadenopathy - Respiratory Exam Respiratory Exam: Decreased Breath Sounds - Cardiovascular Exam Cardiovascular Exam: REGULAR RHYTHM - GI/Abdominal Exam GI & Abdominal Exam: Normal Bowel Sounds - Rectal Exam Rectal Exam: Deferred - Extremities Exam Extremities Exam: Pedal Edema - Back Exam Back Exam: NORMAL INSPECTION - Skin Skin Exam: Normal Color Assessment and Plan (1) Cardiomyopathy Assessment & Plan: stable cardiac status. medical therpay . neuro work up in progress Status: Acute
--- NOTE | 2018-03-31 08:21 | PN ---
DATE: 03/28/2018 ENDO FOLLOWUP NOTE LOCATION: ICU, room 17. SUBJECTIVE: This is a 72-year-old female with acute respiratory failure and remains endotracheally intubated at this time, with also concomitant overt thyrotoxicosis and being treated medically as given thereof. She is now on a supramaximal dose of the medical therapy with thioureas as given. Her latest chemistries today shows a BUN of 50, sodium 139, potassium 2.5, chloride 91, CO2 38, glucose 157, and creatinine 0.7. Her liver transaminases remain elevated as noted. The repeat thyroid studies today shows a T4 of 8.29, with a free T3 of 14.40, a free T4 of 6.98, and the repeat serum cortisol is 118. For this time, we will discontinue the IV hydrocortisone as she clearly has no evidence of hypoadrenalism at this time. We will also continue the medical therapy with propylthiouracil or PTU given as 300 mg every 8 hours as ordered. We will obtain serial thyroid studies and titrate the dose regimen accordingly. We will follow. Ani House MD
--- NOTE | 2018-03-31 08:32 | CP.PCM.PN ---
<Jeremias Ribeiro - Last Filed: 03/31/18 14:10> Subjective - Date & Time of Evaluation Date of Evaluation: 03/31/18 Time of Evaluation: 07:15 - Subjective Subjective: PGY4 GI Follow-up Pt seen and examined bedside unconscious no overnight events ROS: could not be conducted Objective - Vital Signs/Intake and Output Vital Signs (last 24 hours): Temp Pulse Resp BP Pulse Ox 98.5 F 75 21 104/46 L 97 03/31/18 08:00 03/31/18 08:11 03/31/18 08:11 03/31/18 08:11 03/31/18 08:11 Intake and Output: 03/31/18 03/31/18 06:59 18:59 Intake Total 1787.8 Output Total 660 Balance 1127.8 - Medications Medications: Current Medications Acetaminophen (Tylenol 650mg/20.3ml Solution Ud) 650 mg PO Q4H PRN PRN Reason: Temperature above 100.6 Last Admin: 03/28/18 14:47 Dose: 650 mg Albumin Human (Albumin Human 25% (12.5 Gm/50 Ml)) 12.5 gm IV Q12H [facility] Stop: 04/02/18 06:16 Last Admin: 03/31/18 05:18 Dose: 12.5 gm Ascorbic Acid (Vitamin C 500 Mg Tab) 500 mg PO DAILY [facility] Last Admin: 03/30/18 10:36 Dose: 500 mg Cholestyramine Resin (Prevalite) 4 gm PO Q8H [facility] Last Admin: 03/31/18 08:18 Dose: 4 gm Famotidine (Pepcid) 20 mg PO BID [facility] Last Admin: 03/30/18 19:47 Dose: 20 mg Folic Acid (Folic Acid) 1 mg PO DAILY [facility] Last Admin: 03/30/18 10:36 Dose: 1 mg Norepinephrine Bitartrate 4 mg (/ Dextrose) 254 mls @ 15.24 mls/hr IV .[id number] PRN; Protocol; 4 MCG/MIN PRN Reason: TITRATE PER MD ORDER Last Titration: 03/31/18 02:18 Dose: 0 mcg/min, 0 mls/hr Vasopressin 40 units/ Sodium (Chloride) 40 mls @ 0.6 mls/hr IV .Q24H [facility]; 0.01 UNITS/MIN PRN Reason: Protocol Last Admin: 03/30/18 21:13 Dose: 0.03 units/min, 1.8 mls/hr Vancomycin/Sodium Chloride (Vancomycin 1 Gm/Ns 200 Ml) 1 gm in 200 mls @ 166.7 mls/hr IVPB Q24H [facility] PRN Reason: Protocol Stop: 04/01/18 10:01 Last Admin: 03/30/18 10:35 Dose: 166.7 mls/hr Sodium Chloride (Sodium Chloride 0.9%) 1,000 mls @ 75 mls/hr IV .[id number] [facility] Last Admin: 03/31/18 00:29 Dose: Not Given Fluconazole (Diflucan Iv 100 Mg/50 Ml Ns) 50 mls @ 100 mls/hr IVPB Q24H [facility] PRN Reason: Protocol Last Admin: 03/30/18 17:35 Dose: 100 mls/hr Propofol (Diprivan) 1,000 mg in 100 mls @ 1.742 mls/hr IV .Q24H PRN; Protocol; 5 MCG/KG/MIN PRN Reason: TITRATE PER MD ORDER Last Admin: 03/30/18 06:29 Dose: 5 mcg/kg/min, 1.742 mls/hr Levetiracetam 1,500 mg/ (Dextrose) 115 mls @ 420 mls/hr IVPB Q12H [facility] Last Admin: 03/30/18 21:14 Dose: 420 mls/hr Cefepime HCl 1 gm/ Dextrose 50 mls @ 100 mls/hr IVPB Q12H [facility] PRN Reason: Protocol Last Admin: 03/30/18 22:31 Dose: 100 mls/hr Insulin Aspart (Novolog) 0 unit SC Q6H [facility] PRN Reason: Protocol Last Admin: 03/31/18 05:29 Dose: 2 unit Lactulose (Enulose) 20 gm PO BID [facility] Last Admin: 03/30/18 17:35 Dose: 20 gm Midodrine (Proamatine) 5 mg PO Q8H [facility] Last Admin: 03/31/18 05:30 Dose: 5 mg Multivitamins/Vitamin C (Multi-Delyn Liquid) 5 ml PO DAILY [facility] Last Admin: 03/30/18 11:05 Dose: 5 ml Phytonadione (Vitamin K Tab) 10 mg PO DAILY [facility] Stop: 03/31/18 10:01 Last Admin: 03/30/18 11:05 Dose: 10 mg Potassium Phos/Sodium Phos (Neutra-Phos) 1 pkt PO BID [facility] Last Admin: 03/30/18 17:35 Dose: 1 pkt Propranolol HCl (Inderal) 10 mg PO DAILY [facility] Last Admin: 03/30/18 10:35 Dose: 10 mg Thiamine HCl (Vitamin B1 Tab) 200 mg PO Q8H [facility] Last Admin: 03/31/18 01:06 Dose: 200 mg - Labs Labs: 03/31/18 06:00 03/31/18 06:00 PT 25.4 SECONDS (9.7-12.2) H 03/31/18 06:00 INR 2.3 03/31/18 06:00 APTT 44 SECONDS (21-34) H 03/31/18 06:00 - Constitutional Appears: No Acute Distress - Head Exam Head Exam: ATRAUMATIC, NORMOCEPHALIC - Eye Exam Eye Exam: Scleral icterus - ENT Exam ENT Exam: Mucous Membranes Moist - Neck Exam Neck Exam: Normal Inspection - Respiratory Exam Respiratory Exam: Clear to Ausculation Bilateral, NORMAL BREATHING PATTERN. absent: Rales, Rhonchi, Wheezes, Respiratory Distress - Cardiovascular Exam Cardiovascular Exam: REGULAR RHYTHM, +S1, +S2 - GI/Abdominal Exam GI & Abdominal Exam: Soft, Normal Bowel Sounds. absent: Distended, Firm, Guarding, Rigid, Tenderness, Hyperactive Bowel Sounds, Organomegaly - Extremities Exam Extremities Exam: absent: Joint Swelling, Pedal Edema - Neurological Exam Neurological Exam: Altered - Psychiatric Exam Additional comments: cannot assess due to AMS - Skin Skin Exam: Dry, Intact, Warm Additional comments: juandiced Assessment and Plan - Assessment and Plan (Free Text) Assessment: Albina Jewell is a 72F w/ hx of hyperthyroidism who presented w/ near syncope, diarrhea, and abd pain. Pt was found to have acute cholecystitis on imaging. Course complicated with sepsis, rhabdomyolysis, thyroid storm, respiratory failure Elevate liver enzymes, etiology unknown, but likely multifactorial from thyroid storm, sepsis, mediation induced, rhabdo Repiratory Failure Diarrhea DDx: thyroid storm Thyroid storm MICHELLE Sepsis cholelithiasis Hypodense lesion in liver, small, inconclusive on CT Plan: -factor 2, 5, 8 levels pending -continue to monitor LFTs, ASt/ALT improving , bilirubin rising -recheck INR in the AM -MELD Na: 25 -Hep viral serologies neg -HIDA neg -CT revealed normal CBD, + cholelithiasis -recommend CT liver, once medially stable, not urgent, to eval hepatic lesion -initial rise of LFts may be 2/2 thyroid meds and storm -continue to monitor, will likely improve over time -going for MRI today at [facility] D/W Dr. Marroquin <Vanessa Marroquin - Last Filed: 03/31/18 15:01> Objective - Vital Signs/Intake and Output Vital Signs (last 24 hours): Temp Pulse Resp BP Pulse Ox 97.5 F L 72 22 109/41 L 96 03/31/18 12:00 03/31/18 13:00 03/31/18 13:00 03/31/18 12:46 03/31/18 13:00 Intake and Output: 03/31/18 03/31/18 06:59 18:59 Intake Total 1787.8 1059.5 Output Total 660 250 Balance 1127.8 809.5 - Medications Medications: Current Medications Albumin Human (Albumin Human 25% (12.5 Gm/50 Ml)) 12.5 gm IV Q12H [facility] Stop: 04/02/18 06:16 Last Admin: 03/31/18 05:18 Dose: 12.5 gm Ascorbic Acid (Vitamin C 500 Mg Tab) 500 mg PO DAILY [facility] Last Admin: 03/31/18 09:55 Dose: 500 mg Cholestyramine Resin (Prevalite) 4 gm PO Q8H [facility] Last Admin: 03/31/18 08:18 Dose: 4 gm Famotidine (Pepcid) 20 mg PO BID [facility] Last Admin: 03/31/18 09:55 Dose: 20 mg Folic Acid (Folic Acid) 1 mg PO DAILY [facility] Last Admin: 03/31/18 09:55 Dose: 1 mg Norepinephrine Bitartrate 4 mg (/ Dextrose) 254 mls @ 15.24 mls/hr IV .[id number] PRN; Protocol; 4 MCG/MIN PRN Reason: TITRATE PER MD ORDER Last Titration: 03/31/18 02:18 Dose: 0 mcg/min, 0 mls/hr Vasopressin 40 units/ Sodium (Chloride) 40 mls @ 0.6 mls/hr IV .Q24H [facility]; 0.01 UNITS/MIN PRN Reason: Protocol Last Admin: 03/30/18 21:13 Dose: 0.03 units/min, 1.8 mls/hr Vancomycin/Sodium Chloride (Vancomycin 1 Gm/Ns 200 Ml) 1 gm in 200 mls @ 166.7 mls/hr IVPB Q24H [facility] PRN Reason: Protocol Stop: 04/01/18 10:01 Last Admin: 03/31/18 09:54 Dose: 166.7 mls/hr Sodium Chloride (Sodium Chloride 0.9%) 1,000 mls @ 75 mls/hr IV .[id number] [facility] Last Admin: 03/31/18 00:29 Dose: Not Given Fluconazole (Diflucan Iv 100 Mg/50 Ml Ns) 50 mls @ 100 mls/hr IVPB Q24H [facility] PRN Reason: Protocol Last Admin: 03/30/18 17:35 Dose: 100 mls/hr Propofol (Diprivan) 1,000 mg in 100 mls @ 1.742 mls/hr IV .Q24H PRN; Protocol; 5 MCG/KG/MIN PRN Reason: TITRATE PER MD ORDER Last Titration: 03/31/18 12:00 Dose: 0 mcg/kg/min, 0 mls/hr Levetiracetam 1,500 mg/ (Dextrose) 115 mls @ 420 mls/hr IVPB Q12H [facility] Last Admin: 03/31/18 09:47 Dose: 420 mls/hr Cefepime HCl 1 gm/ Dextrose 50 mls @ 100 mls/hr IVPB Q12H [facility] PRN Reason: Protocol Last Admin: 03/31/18 11:15 Dose: 100 mls/hr Insulin Aspart (Novolog) 0 unit SC Q6H [facility] PRN Reason: Protocol Last Admin: 03/31/18 12:00 Dose: Not Given Midodrine (Proamatine) 5 mg PO Q8H [facility] Last Admin: 03/31/18 13:36 Dose: 5 mg Multivitamins/Vitamin C (Multi-Delyn Liquid) 5 ml PO DAILY [facility] Last Admin: 03/31/18 09:55 Dose: 5 ml Propranolol HCl (Inderal) 10 mg PO DAILY [facility] Last Admin: 03/31/18 09:55 Dose: 10 mg Thiamine HCl (Vitamin B1 Tab) 200 mg PO Q8H [facility] Last Admin: 03/31/18 09:55 Dose: 200 mg - Labs Labs: 03/31/18 06:00 03/31/18 06:00 PT 25.4 SECONDS (9.7-12.2) H 03/31/18 06:00 INR 2.3 03/31/18 06:00 APTT 44 SECONDS (21-34) H 03/31/18 06:00 Attending/Attestation - Attestation I have personally seen and examined this patient.: Yes I have fully participated in the care of the patient.: Yes I have reviewed all pertinent clinical information, including history, physical exam and plan: Yes Notes (Text): 03/31/18 14:56 This is a 72 yr old F with history of hyperthyroidism who presented with near syncope, diarrhea, and abdominal pain. Pt was found to have acute cholecystitis on imaging. Course complicated with sepsis, rhabdomyolysis, thyroid storm, respiratory failure. Gi consulted for elevated LFT with negative hepatitis serologies and down trending AST/ALT. Likely due to thyroid storm. GGT normal. Bilirubin will take time to downtrend. Please send direct bilirubin, GGT and LDH and fibrinogen. Will follow
--- NOTE | 2018-03-31 08:39 | RAD ---
HISTORY: eval lungs COMPARISON: Chest radiograph dated 03/30/2018. FINDINGS: LUNGS: Stable chronic prominence the bilateral interstitial markings with with superimposed pulmonary vascular congestion. Bibasilar atelectasis. PLEURA: Small bilateral pleural effusions, decreased in size. No pneumothorax apparent. CARDIOVASCULAR: Atherosclerotic aortic calcifications. Cardiomediastinal silhouette stably enlarged. OSSEOUS STRUCTURES: Unchanged. VISUALIZED UPPER ABDOMEN: Normal. OTHER FINDINGS: Endotracheal, enteric tubes, unchanged. IMPRESSION: Interval decrease in size of residual small pleural effusions. No other significant interval change.
[2018-03-31] MEDS: Vancomycin 1 gm/NS 200 ml 1 GM/200 ML BAG IVPB SCH (09:54)
[2018-03-31] MEDS: Potassium & Sodium Phosphate PO SCH (09:55)
[2018-03-31] MEDS: Multiple Vitamins Oral Solution PO SCH (09:55)
--- NOTE | 2018-03-31 13:41 | EEG ---
DATE: EEG DESCRIPTION: As follows: This EEG was acquired using 16 electrodes placed according to the 10-20 International electrode system. All electrodes were referenced to A1-A2, P1-P2 respectively. Continuous seizure monitoring was done using spike detection services. BACKGROUND RHYTHM: There is no normal background rhythm, but rather a 3-4 Hz activity that is not reactive or symmetric. In the left hemisphere, there are semi periodic PLEDs as well as occasional spikes in the left temporal lobe, pace is worsening at T3. There were no clinical or subclinical seizures. There are no other interictal or epileptiform discharges. There is no sleep captured. IMPRESSION: This is an abnormal awake and drowsy electroencephalogram. The presence of periodic lateralized epileptiform discharges indicates pathology in the left temporal lobe. 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 In addition, the presence of spikes in the left temporal lobe indicates the seated position for seizures. Clinical correlation is required. Findings discussed with Dr. Jean and neurointensivist. Osiris Hua MD [place]
[2018-03-31] MEDS: Fluconazole IV 100mg/50 ml NS 50 ML IVPB SCH (17:44)
--- NOTE | 2018-03-31 18:34 | CP.CCUPN ---
"CCU Subjective - Physician Review Subjective (Free Text): Patient seen and examined at bedside. No overnight events reported. Patient currently on Ventilator. GCS currently 4T (Improved). CCU Objective - Vital Signs / Intake & Output Vital Signs (Last 4 hours): Vital Signs Temp Pulse Resp BP Pulse Ox 03/31/18 18:00 59 L 18 97 03/31/18 17:52 58 L 16 96/39 L 96 03/31/18 17:20 59 L 15 96/42 L 96 03/31/18 17:00 60 19 95 03/31/18 16:50 63 18 101/40 L 94 L 03/31/18 16:30 97.5 F L 03/31/18 16:20 68 16 102/46 L 95 Intake and Output (Last 8hrs): Intake & Output 03/31/18 03/31/18 03/31/18 06:59 14:59 22:59 Intake Total 981.2 1151.3 174.6 Output Total 450 250 Balance 531.2 901.3 174.6 Weight 135 lb Intake: IV 23 89.3 Intake, IV Amount 668.2 572.0 134.6 Left Distal Port Internal 15.2 Jugular Left Medial Port Internal 13.6 7.6 Jugular Left Proximal Port 625.0 550 131 Internal Jugular left distal port y 14.4 14.4 3.6 Tube Feeding 180 140 40 Other 110 350 Output: Urine 450 250 Urethral (Garcia) 450 250 Other: # Bowel Movements 1 1 1 - Physical Exam Head: Positive for: Atraumatic, Normocephalic Pupils: Positive for: Sluggish Conjunctiva: Positive for: Normal Mouth: Positive for: Moist Mucous Membranes Respiratory/Chest: Positive for: Good Air Exchange, Rales. Negative for: Respiratory Distress, Accessory Muscle Use, Rhonchi Cardiovascular: Positive for: Regular Rate and Rhythm, Normal S1, S2. Negative for: Tachycardic Abdomen: Positive for: Normal Bowel Sounds. Negative for: Distention Neurological: Negative for: GCS=15 (GCS=4T) Skin: Positive for: Warm, Dry Psychiatric: Negative for: Alert, Oriented x 3 - Medications Active Medications: Active Medications Generic Name Dose Route Start Last Admin Trade Name Freq PRN Reason Stop Dose Admin Albumin Human 12.5 gm 03/30/18 18:15 05/21/18 17:58 Albumin Human 25% (12.5 Gm/50 Ml) IV 04/02/18 06:16 12.5 gm Q12H NEREYDA Administration Ascorbic Acid 500 mg 03/30/18 10:00 03/31/18 09:55 Vitamin C 500 Mg Tab PO 500 mg DAILY NEREYDA Administration Cholestyramine Resin 4 gm 03/26/18 08:15 03/31/18 17:43 Prevalite PO 4 gm Q8H NEREYDA Administration Famotidine 20 mg 03/25/18 10:00 03/31/18 17:44 Pepcid PO 20 mg BID NEREYDA Administration Folic Acid 1 mg 03/30/18 10:00 03/31/18 09:55 Folic Acid PO 1 mg DAILY NEREYDA Administration Norepinephrine Bitartrate 4 mg 254 mls @ 15.24 mls/hr 03/25/18 17:51 02:18 / Dextrose IV 0 mcg/min .[id number] PRN 0 mls/hr TITRATE PER MD ORDER Titration Protocol 4 MCG/MIN Vasopressin 40 units/ Sodium 40 mls @ 0.6 mls/hr 03/26/18 18:15 03/31/18 14: 00 Chloride IV 0.03 units/min .Q24H NEREYDA 1.8 mls/hr Protocol Administration 0.01 UNITS/MIN Vancomycin/Sodium Chloride 1 gm in 200 mls @ 166.7 mls/hr 03/27/18 10:00 09:54 Vancomycin 1 Gm/Ns 200 Ml IVPB 04/01/18 10:01 166.7 mls/hr Q24H NEREYDA Administration Protocol Sodium Chloride 1,000 mls @ 75 mls/hr 03/27/18 15:15 03/31/18 17:57 Sodium Chloride 0.9% IV 75 mls/hr .[id number] NEREYDA Administration Fluconazole 50 mls @ 100 mls/hr 03/27/18 18:00 03/31/18 17:44 Diflucan Iv 100 Mg/50 Ml Ns IVPB 100 mls/hr Q24H NEREYDA Administration Protocol Propofol 1,000 mg in 100 mls @ 1.742 mls/hr 03/29/18 13:17 03/31/18 12:00 Diprivan IV 0 mcg/kg/min .Q24H PRN 0 mls/hr TITRATE PER MD ORDER Titration Protocol 5 MCG/KG/MIN Levetiracetam 1,500 mg/ 115 mls @ 420 mls/hr 03/30/18 21:00 03/31/18 09:47 Dextrose IVPB 420 mls/hr Q12H NEREYDA Administration Cefepime HCl 1 gm/ Dextrose 50 mls @ 100 mls/hr 03/30/18 11:15 03/31/18 11:15 IVPB 100 mls/hr Q12H NEREYDA Administration Protocol Insulin Aspart 0 unit 03/27/18 12:00 03/31/18 17:48 Novolog SC Not Given Q6H NEREYDA Protocol Midodrine 5 mg 03/27/18 14:00 03/31/18 13:36 Proamatine PO 5 mg Q8H NEREYDA Administration Multivitamins/Vitamin C 5 ml 03/30/18 10:00 03/31/18 09:55 Multi-Delyn Liquid PO 5 ml DAILY NEREYDA Administration Propranolol HCl 10 mg 03/26/18 10:00 03/31/18 09:55 Inderal PO 10 mg DAILY NEREYDA Administration Propylthiouracil 150 mg 04/01/18 10:00 Propylthiouracil PO TID NEREYDA Thiamine HCl 200 mg 03/30/18 09:45 03/31/18 17:43 Vitamin B1 Tab PO 200 mg Q8H NEREYDA Administration - Patient Studies Lab Studies: Microbiology Studies 03/30/18 06:31 Urine Culture - Final Urine,Garcia No Growth (<1,000 CFU/ML) 03/25/18 16:00 Blood Culture - Final Blood-Venous NO GROWTH AFTER 5 DAYS Gram Stain - Final TEST NOT PERFORMED 03/25/18 16:30 Blood Culture - Final Blood-Venous NO GROWTH AFTER 5 DAYS Gram Stain - Final TEST NOT PERFORMED Lab Studies 03/31/18 03/31/18 03/31/18 Range/Units 17:43 11:31 06:00 WBC (4.8-10.8) K/uL RBC (3.80-5.20) Mil/uL Hgb (11.0-16.0) g/dL Hct (34.0-47.0) % MCV (81.0-99.0) fL MCH (27.0-31.0) pg MCHC (33.0-37.0) g/dL RDW (11.5-14.5) % Plt Count (130-400) K/uL MPV (7.2-11.7) fL Neut % (Auto) (50.0-75.0) % Lymph % (Auto) (20.0-40.0) % [place] % (Auto) (0.0-10.0) % Eos % (Auto) (0.0-4.0) % Baso % (Auto) (0.0-2.0) % Neut # (Auto) (1.8-7.0) K/uL Lymph # (Auto) (1.0-4.3) K/uL [place] # (Auto) (0.0-0.8) K/uL Eos # (Auto) (0.0-0.7) K/uL Baso # (Auto) (0.0-0.2) K/uL Differential Comment PT (9.7-12.2) SECONDS INR APTT (21-34) SECONDS Puncture Site pCO2 (35-45) mm/Hg pO2 (80-100) mm/Hg HCO3 (21-28) mmol/L ABG pH (7.35-7.45) ABG Total CO2 (22-28) mmol/L ABG O2 Saturation (95-98) % ABG Base Excess (-2.0-3.0) mmol/L Jake Test ABG Potassium (3.6-5.2) mmol/L A-a O2 Difference mm/Hg Respiratory Index Sodium (132-148) mmol/l Chloride (98-107) mmol/L Glucose (65-105) mg/dl Lactate (0.7-2.1) mmol/L Vent Mode Mechanical Rate FiO2 % Tidal Volume PEEP Potassium (3.6-5.2) mmol/L Carbon Dioxide (22-30) mmol/L Anion Gap (10-20) BUN (7-17) mg/dL Creatinine (0.7-1.2) mg/dL Est GFR ( Amer) Est GFR (Non-Af Amer) POC Glucose (mg/dL) 144 H 168 H (65-110) mg/dL Random Glucose (65-105) mg/dL Calcium (8.6-10.4) mg/dl Phosphorus (2.5-4.5) mg/dL Magnesium (1.6-2.3) mg/dL Total Bilirubin (0.2-1.3) mg/dL AST (14-36) U/L ALT (9-52) U/L Alkaline Phosphatase (38-126) U/L Total Protein (6.3-8.3) g/dL Albumin (3.5-5.0) g/dL Globulin (2.2-3.9) gm/dL Albumin/Globulin Ratio (1.0-2.1) Free T4 4.76 H (0.78-2.19) ng/dL Thyroxine (T4) (5.5-11.0) ug/dL Free T3 pg/mL (2.77-5.27) pg/mL TSH 3rd Generation (0.46-4.68) mIU/L Thyroid Stim Immunoglob (<140) % baseline Arterial Blood Potassium (3.6-5.2) mmol/L Smooth Muscle Ab Titer (< 1:20) Titer Anti-Smooth Muscle Ab (Negative) HSV Source Description HSV I IgG Ab index HSV II IgG index HSV I DNA PCR (Not Detected) HSV II DNA PCR (Not Detected) 03/31/18 03/31/18 03/31/18 Range/Units 06:00 06:00 06:00 WBC 10.5 (4.8-10.8) K/uL RBC 3.62 L (3.80-5.20) Mil/uL Hgb 11.6 (11.0-16.0) g/dL Hct 34.2 (34.0-47.0) % MCV 94.5 (81.0-99.0) fL MCH 32.0 H (27.0-31.0) pg MCHC 33.9 (33.0-37.0) g/dL RDW 15.0 H (11.5-14.5) % Plt Count 95 L (130-400) K/uL MPV 11.3 (7.2-11.7) fL Neut % (Auto) 73.5 (50.0-75.0) % Lymph % (Auto) 14.1 L (20.0-40.0) % [place] % (Auto) 8.5 (0.0-10.0) % Eos % (Auto) 3.6 (0.0-4.0) % Baso % (Auto) 0.3 (0.0-2.0) % Neut # (Auto) 7.7 H (1.8-7.0) K/uL Lymph # (Auto) 1.5 (1.0-4.3) K/uL [place] # (Auto) 0.9 H (0.0-0.8) K/uL Eos # (Auto) 0.4 (0.0-0.7) K/uL Baso # (Auto) 0.0 (0.0-0.2) K/uL Differential Comment PT 25.4 H (9.7-12.2) SECONDS INR 2.3 APTT 44 H (21-34) SECONDS Puncture Site pCO2 (35-45) mm/Hg pO2 (80-100) mm/Hg HCO3 (21-28) mmol/L ABG pH (7.35-7.45) ABG Total CO2 (22-28) mmol/L ABG O2 Saturation (95-98) % ABG Base Excess (-2.0-3.0) mmol/L Jake Test ABG Potassium (3.6-5.2) mmol/L A-a O2 Difference mm/Hg Respiratory Index Sodium 144 (132-148) mmol/l Chloride 108 H (98-107) mmol/L Glucose (65-105) mg/dl Lactate (0.7-2.1) mmol/L Vent Mode Mechanical Rate FiO2 % Tidal Volume PEEP Potassium 4.2 (3.6-5.2) mmol/L Carbon Dioxide 31 H (22-30) mmol/L Anion Gap 10 (10-20) BUN 34 H (7-17) mg/dL Creatinine 0.5 L (0.7-1.2) mg/dL Est GFR ( Amer) > 60 Est GFR (Non-Af Amer) > 60 POC Glucose (mg/dL) (65-110) mg/dL Random Glucose 139 H (65-105) mg/dL Calcium 7.6 L (8.6-10.4) mg/dl Phosphorus 2.5 (2.5-4.5) mg/dL Magnesium 2.0 (1.6-2.3) mg/dL Total Bilirubin 11.9 H (0.2-1.3) mg/dL AST 512 H D (14-36) U/L ALT 470 H D (9-52) U/L Alkaline Phosphatase 79 (38-126) U/L Total Protein 4.8 L (6.3-8.3) g/dL Albumin 1.9 L (3.5-5.0) g/dL Globulin 2.9 (2.2-3.9) gm/dL Albumin/Globulin Ratio 0.6 L (1.0-2.1) Free T4 (0.78-2.19) ng/dL Thyroxine (T4) 6.80 (5.5-11.0) ug/dL Free T3 pg/mL 9.14 H (2.77-5.27) pg/mL TSH 3rd Generation < 0.02 L (0.46-4.68) mIU/L Thyroid Stim Immunoglob (<140) % baseline Arterial Blood Potassium (3.6-5.2) mmol/L Smooth Muscle Ab Titer (< 1:20) Titer Anti-Smooth Muscle Ab (Negative) HSV Source Description HSV I IgG Ab index HSV II IgG index HSV I DNA PCR (Not Detected) HSV II DNA PCR (Not Detected) 03/31/18 03/31/18 03/31/18 Range/Units 05:27 04:25 00:10 WBC (4.8-10.8) K/uL RBC (3.80-5.20) Mil/uL Hgb (11.0-16.0) g/dL Hct (34.0-47.0) % MCV (81.0-99.0) fL MCH (27.0-31.0) pg MCHC (33.0-37.0) g/dL RDW (11.5-14.5) % Plt Count (130-400) K/uL MPV (7.2-11.7) fL Neut % (Auto) (50.0-75.0) % Lymph % (Auto) (20.0-40.0) % [place] % (Auto) (0.0-10.0) % Eos % (Auto) (0.0-4.0) % Baso % (Auto) (0.0-2.0) % Neut # (Auto) (1.8-7.0) K/uL Lymph # (Auto) (1.0-4.3) K/uL [place] # (Auto) (0.0-0.8) K/uL Eos # (Auto) (0.0-0.7) K/uL Baso # (Auto) (0.0-0.2) K/uL Differential Comment PT (9.7-12.2) SECONDS INR APTT (21-34) SECONDS Puncture Site Rr pCO2 40 (35-45) mm/Hg pO2 82 (80-100) mm/Hg HCO3 31.3 H (21-28) mmol/L ABG pH 7.51 H (7.35-7.45) ABG Total CO2 33.1 H (22-28) mmol/L ABG O2 Saturation 98.9 H (95-98) % ABG Base Excess 8.2 H (-2.0-3.0) mmol/L Jake Test Pos ABG Potassium 4.0 (3.6-5.2) mmol/L A-a O2 Difference 225.0 mm/Hg Respiratory Index 2.7 Sodium 142.0 (132-148) mmol/l Chloride 109.0 H (98-107) mmol/L Glucose 140 H (65-105) mg/dl Lactate 1.3 (0.7-2.1) mmol/L Vent Mode Prvc Mechanical Rate 12 FiO2 50.0 % Tidal Volume 380 PEEP 5 Potassium (3.6-5.2) mmol/L Carbon Dioxide (22-30) mmol/L Anion Gap (10-20) BUN (7-17) mg/dL Creatinine (0.7-1.2) mg/dL Est GFR ( Amer) Est GFR (Non-Af Amer) POC Glucose (mg/dL) 154 H 205 H (65-110) mg/dL Random Glucose (65-105) mg/dL Calcium (8.6-10.4) mg/dl Phosphorus (2.5-4.5) mg/dL Magnesium (1.6-2.3) mg/dL Total Bilirubin (0.2-1.3) mg/dL AST (14-36) U/L ALT (9-52) U/L Alkaline Phosphatase (38-126) U/L Total Protein (6.3-8.3) g/dL Albumin (3.5-5.0) g/dL Globulin (2.2-3.9) gm/dL Albumin/Globulin Ratio (1.0-2.1) Free T4 (0.78-2.19) ng/dL Thyroxine (T4) (5.5-11.0) ug/dL Free T3 pg/mL (2.77-5.27) pg/mL TSH 3rd Generation (0.46-4.68) mIU/L Thyroid Stim Immunoglob (<140) % baseline Arterial Blood Potassium 4.0 (3.6-5.2) mmol/L Smooth Muscle Ab Titer (< 1:20) Titer Anti-Smooth Muscle Ab (Negative) HSV Source Description HSV I IgG Ab index HSV II IgG index HSV I DNA PCR (Not Detected) HSV II DNA PCR (Not Detected) 03/30/18 03/30/18 03/30/18 Range/Units 17:56 12:38 05:42 WBC (4.8-10.8) K/uL RBC (3.80-5.20) Mil/uL Hgb (11.0-16.0) g/dL Hct (34.0-47.0) % MCV (81.0-99.0) fL MCH (27.0-31.0) pg MCHC (33.0-37.0) g/dL RDW (11.5-14.5) % Plt Count (130-400) K/uL MPV (7.2-11.7) fL Neut % (Auto) (50.0-75.0) % Lymph % (Auto) (20.0-40.0) % [place] % (Auto) (0.0-10.0) % Eos % (Auto) (0.0-4.0) % Baso % (Auto) (0.0-2.0) % Neut # (Auto) (1.8-7.0) K/uL Lymph # (Auto) (1.0-4.3) K/uL [place] # (Auto) (0.0-0.8) K/uL Eos # (Auto) (0.0-0.7) K/uL Baso # (Auto) (0.0-0.2) K/uL Differential Comment PT (9.7-12.2) SECONDS INR APTT (21-34) SECONDS Puncture Site pCO2 (35-45) mm/Hg pO2 (80-100) mm/Hg HCO3 (21-28) mmol/L ABG pH (7.35-7.45) ABG Total CO2 (22-28) mmol/L ABG O2 Saturation (95-98) % ABG Base Excess (-2.0-3.0) mmol/L Jake Test ABG Potassium (3.6-5.2) mmol/L A-a O2 Difference mm/Hg Respiratory Index Sodium (132-148) mmol/l Chloride (98-107) mmol/L Glucose (65-105) mg/dl Lactate (0.7-2.1) mmol/L Vent Mode Mechanical Rate FiO2 % Tidal Volume PEEP Potassium (3.6-5.2) mmol/L Carbon Dioxide (22-30) mmol/L Anion Gap (10-20) BUN (7-17) mg/dL Creatinine (0.7-1.2) mg/dL Est GFR ( Amer) Est GFR (Non-Af Amer) POC Glucose (mg/dL) 196 H 200 H 147 H (65-110) mg/dL Random Glucose (65-105) mg/dL Calcium (8.6-10.4) mg/dl Phosphorus (2.5-4.5) mg/dL Magnesium (1.6-2.3) mg/dL Total Bilirubin (0.2-1.3) mg/dL AST (14-36) U/L ALT (9-52) U/L Alkaline Phosphatase (38-126) U/L Total Protein (6.3-8.3) g/dL Albumin (3.5-5.0) g/dL Globulin (2.2-3.9) gm/dL Albumin/Globulin Ratio (1.0-2.1) Free T4 (0.78-2.19) ng/dL Thyroxine (T4) (5.5-11.0) ug/dL Free T3 pg/mL (2.77-5.27) pg/mL TSH 3rd Generation (0.46-4.68) mIU/L Thyroid Stim Immunoglob (<140) % baseline Arterial Blood Potassium (3.6-5.2) mmol/L Smooth Muscle Ab Titer (< 1:20) Titer Anti-Smooth Muscle Ab (Negative) HSV Source Description HSV I IgG Ab index HSV II IgG index HSV I DNA PCR (Not Detected) HSV II DNA PCR (Not Detected) 05/20/18 05/19/18 05/19/18 Range/Units 00:07 17:56 11:17 WBC (4.8-10.8) K/uL RBC (3.80-5.20) Mil/uL Hgb (11.0-16.0) g/dL Hct (34.0-47.0) % MCV (81.0-99.0) fL MCH (27.0-31.0) pg MCHC (33.0-37.0) g/dL RDW (11.5-14.5) % Plt Count (130-400) K/uL MPV (7.2-11.7) fL Neut % (Auto) (50.0-75.0) % Lymph % (Auto) (20.0-40.0) % [place] % (Auto) (0.0-10.0) % Eos % (Auto) (0.0-4.0) % Baso % (Auto) (0.0-2.0) % Neut # (Auto) (1.8-7.0) K/uL Lymph # (Auto) (1.0-4.3) K/uL [place] # (Auto) (0.0-0.8) K/uL Eos # (Auto) (0.0-0.7) K/uL Baso # (Auto) (0.0-0.2) K/uL Differential Comment PT (9.7-12.2) SECONDS INR APTT (21-34) SECONDS Puncture Site pCO2 (35-45) mm/Hg pO2 (80-100) mm/Hg HCO3 (21-28) mmol/L ABG pH (7.35-7.45) ABG Total CO2 (22-28) mmol/L ABG O2 Saturation (95-98) % ABG Base Excess (-2.0-3.0) mmol/L Jake Test ABG Potassium (3.6-5.2) mmol/L A-a O2 Difference mm/Hg Respiratory Index Sodium (132-148) mmol/l Chloride (98-107) mmol/L Glucose (65-105) mg/dl Lactate (0.7-2.1) mmol/L Vent Mode Mechanical Rate FiO2 % Tidal Volume PEEP Potassium (3.6-5.2) mmol/L Carbon Dioxide (22-30) mmol/L Anion Gap (10-20) BUN (7-17) mg/dL Creatinine (0.7-1.2) mg/dL Est GFR ( Amer) Est GFR (Non-Af Amer) POC Glucose (mg/dL) 126 H 146 H 199 H (65-110) mg/dL Random Glucose (65-105) mg/dL Calcium (8.6-10.4) mg/dl Phosphorus (2.5-4.5) mg/dL Magnesium (1.6-2.3) mg/dL Total Bilirubin (0.2-1.3) mg/dL AST (14-36) U/L ALT (9-52) U/L Alkaline Phosphatase (38-126) U/L Total Protein (6.3-8.3) g/dL Albumin (3.5-5.0) g/dL Globulin (2.2-3.9) gm/dL Albumin/Globulin Ratio (1.0-2.1) Free T4 (0.78-2.19) ng/dL Thyroxine (T4) (5.5-11.0) ug/dL Free T3 pg/mL (2.77-5.27) pg/mL TSH 3rd Generation (0.46-4.68) mIU/L Thyroid Stim Immunoglob (<140) % baseline Arterial Blood Potassium (3.6-5.2) mmol/L Smooth Muscle Ab Titer (< 1:20) Titer Anti-Smooth Muscle Ab (Negative) HSV Source Description HSV I IgG Ab index HSV II IgG index HSV I DNA PCR (Not Detected) HSV II DNA PCR (Not Detected) 03/29/18 03/29/18 03/28/18 Range/Units 04:59 00:05 18:09 WBC (4.8-10.8) K/uL RBC (3.80-5.20) Mil/uL Hgb (11.0-16.0) g/dL Hct (34.0-47.0) % MCV (81.0-99.0) fL MCH (27.0-31.0) pg MCHC (33.0-37.0) g/dL RDW (11.5-14.5) % Plt Count (130-400) K/uL MPV (7.2-11.7) fL Neut % (Auto) (50.0-75.0) % Lymph % (Auto) (20.0-40.0) % [place] % (Auto) (0.0-10.0) % Eos % (Auto) (0.0-4.0) % Baso % (Auto) (0.0-2.0) % Neut # (Auto) (1.8-7.0) K/uL Lymph # (Auto) (1.0-4.3) K/uL [place] # (Auto) (0.0-0.8) K/uL Eos # (Auto) (0.0-0.7) K/uL Baso # (Auto) (0.0-0.2) K/uL Differential Comment PT (9.7-12.2) SECONDS INR APTT (21-34) SECONDS Puncture Site pCO2 (35-45) mm/Hg pO2 (80-100) mm/Hg HCO3 (21-28) mmol/L ABG pH (7.35-7.45) ABG Total CO2 (22-28) mmol/L ABG O2 Saturation (95-98) % ABG Base Excess (-2.0-3.0) mmol/L Jake Test ABG Potassium (3.6-5.2) mmol/L A-a O2 Difference mm/Hg Respiratory Index Sodium (132-148) mmol/l Chloride (98-107) mmol/L Glucose (65-105) mg/dl Lactate (0.7-2.1) mmol/L Vent Mode Mechanical Rate FiO2 % Tidal Volume PEEP Potassium (3.6-5.2) mmol/L Carbon Dioxide (22-30) mmol/L Anion Gap (10-20) BUN (7-17) mg/dL Creatinine (0.7-1.2) mg/dL Est GFR ( Amer) Est GFR (Non-Af Amer) POC Glucose (mg/dL) 207 H 219 H 203 H (65-110) mg/dL Random Glucose (65-105) mg/dL Calcium (8.6-10.4) mg/dl Phosphorus (2.5-4.5) mg/dL Magnesium (1.6-2.3) mg/dL Total Bilirubin (0.2-1.3) mg/dL AST (14-36) U/L ALT (9-52) U/L Alkaline Phosphatase (38-126) U/L Total Protein (6.3-8.3) g/dL Albumin (3.5-5.0) g/dL Globulin (2.2-3.9) gm/dL Albumin/Globulin Ratio (1.0-2.1) Free T4 (0.78-2.19) ng/dL Thyroxine (T4) (5.5-11.0) ug/dL Free T3 pg/mL (2.77-5.27) pg/mL TSH 3rd Generation (0.46-4.68) mIU/L Thyroid Stim Immunoglob (<140) % baseline Arterial Blood Potassium (3.6-5.2) mmol/L Smooth Muscle Ab Titer (< 1:20) Titer Anti-Smooth Muscle Ab (Negative) HSV Source Description HSV I IgG Ab index HSV II IgG index HSV I DNA PCR (Not Detected) HSV II DNA PCR (Not Detected) 03/28/18 03/27/18 03/26/18 Range/Units 06:02 11:52 06:14 WBC (4.8-10.8) K/uL RBC (3.80-5.20) Mil/uL Hgb (11.0-16.0) g/dL Hct (34.0-47.0) % MCV (81.0-99.0) fL MCH (27.0-31.0) pg MCHC (33.0-37.0) g/dL RDW (11.5-14.5) % Plt Count (130-400) K/uL MPV (7.2-11.7) fL Neut % (Auto) (50.0-75.0) % Lymph % (Auto) (20.0-40.0) % [place] % (Auto) (0.0-10.0) % Eos % (Auto) (0.0-4.0) % Baso % (Auto) (0.0-2.0) % Neut # (Auto) (1.8-7.0) K/uL Lymph # (Auto) (1.0-4.3) K/uL [place] # (Auto) (0.0-0.8) K/uL Eos # (Auto) (0.0-0.7) K/uL Baso # (Auto) (0.0-0.2) K/uL Differential Comment PT (9.7-12.2) SECONDS INR APTT (21-34) SECONDS Puncture Site pCO2 (35-45) mm/Hg pO2 (80-100) mm/Hg HCO3 (21-28) mmol/L ABG pH (7.35-7.45) ABG Total CO2 (22-28) mmol/L ABG O2 Saturation (95-98) % ABG Base Excess (-2.0-3.0) mmol/L Jake Test ABG Potassium (3.6-5.2) mmol/L A-a O2 Difference mm/Hg Respiratory Index Sodium (132-148) mmol/l Chloride (98-107) mmol/L Glucose (65-105) mg/dl Lactate (0.7-2.1) mmol/L Vent Mode Mechanical Rate FiO2 % Tidal Volume PEEP Potassium (3.6-5.2) mmol/L Carbon Dioxide (22-30) mmol/L Anion Gap (10-20) BUN (7-17) mg/dL Creatinine (0.7-1.2) mg/dL Est GFR ( Amer) Est GFR (Non-Af Amer) POC Glucose (mg/dL) (65-110) mg/dL Random Glucose (65-105) mg/dL Calcium (8.6-10.4) mg/dl Phosphorus (2.5-4.5) mg/dL Magnesium (1.6-2.3) mg/dL Total Bilirubin (0.2-1.3) mg/dL AST (14-36) U/L ALT (9-52) U/L Alkaline Phosphatase (38-126) U/L Total Protein (6.3-8.3) g/dL Albumin (3.5-5.0) g/dL Globulin (2.2-3.9) gm/dL Albumin/Globulin Ratio (1.0-2.1) Free T4 (0.78-2.19) ng/dL Thyroxine (T4) (5.5-11.0) ug/dL Free T3 pg/mL (2.77-5.27) pg/mL TSH 3rd Generation (0.46-4.68) mIU/L Thyroid Stim Immunoglob 401 H (<140) % baseline Arterial Blood Potassium (3.6-5.2) mmol/L Smooth Muscle Ab Titer 1:20 H (< 1:20) Titer Anti-Smooth Muscle Ab Positive H (Negative) HSV Source Description Serum HSV I IgG Ab 35.30 H index HSV II IgG <0.90 index HSV I DNA PCR Not detected (Not Detected) HSV II DNA PCR Not detected (Not Detected) Laboratory Results - last 24 hr 03/26/18 03/27/18 03/28/18 06:14 11:52 06:02 WBC RBC Hgb Hct MCV MCH MCHC RDW Plt Count MPV Neut % (Auto) Lymph % (Auto) [place] % (Auto) Eos % (Auto) Baso % (Auto) Neut # (Auto) Lymph # (Auto) [place] # (Auto) Eos # (Auto) Baso # (Auto) Differential Comment PT INR APTT Puncture Site pCO2 pO2 HCO3 ABG pH ABG Total CO2 ABG O2 Saturation ABG Base Excess Jake Test ABG Potassium A-a O2 Difference Respiratory Index Sodium Chloride Glucose Lactate Vent Mode Mechanical Rate FiO2 Tidal Volume PEEP Potassium Carbon Dioxide Anion Gap BUN Creatinine Est GFR ( Amer) Est GFR (Non-Af Amer) POC Glucose (mg/dL) Random Glucose Calcium Phosphorus Magnesium Total Bilirubin AST ALT Alkaline Phosphatase Total Protein Albumin Globulin Albumin/Globulin Ratio Free T4 Thyroxine (T4) Free T3 pg/mL TSH 3rd Generation Thyroid Stim Immunoglob 401 H Arterial Blood Potassium Smooth Muscle Ab Titer 1:20 H Anti-Smooth Muscle Ab Positive H HSV Source Description Serum HSV I IgG Ab 35.30 H HSV II IgG <0.90 HSV I DNA PCR Not detected HSV II DNA PCR Not detected 03/28/18 03/29/18 03/29/18 18:09 00:05 04:59 WBC RBC Hgb Hct MCV MCH MCHC RDW Plt Count MPV Neut % (Auto) Lymph % (Auto) [place] % (Auto) Eos % (Auto) Baso % (Auto) Neut # (Auto) Lymph # (Auto) [place] # (Auto) Eos # (Auto) Baso # (Auto) Differential Comment PT INR APTT Puncture Site pCO2 pO2 HCO3 ABG pH ABG Total CO2 ABG O2 Saturation ABG Base Excess Jake Test ABG Potassium A-a O2 Difference Respiratory Index Sodium Chloride Glucose Lactate Vent Mode Mechanical Rate FiO2 Tidal Volume PEEP Potassium Carbon Dioxide Anion Gap BUN Creatinine Est GFR ( Amer) Est GFR (Non-Af Amer) POC Glucose (mg/dL) 203 H 219 H 207 H Random Glucose Calcium Phosphorus Magnesium Total Bilirubin AST ALT Alkaline Phosphatase Total Protein Albumin Globulin Albumin/Globulin Ratio Free T4 Thyroxine (T4) Free T3 pg/mL TSH 3rd Generation Thyroid Stim Immunoglob Arterial Blood Potassium Smooth Muscle Ab Titer Anti-Smooth Muscle Ab HSV Source Description HSV I IgG Ab HSV II IgG HSV I DNA PCR HSV II DNA PCR 03/29/18 03/29/18 03/30/18 11:17 17:56 00:07 WBC RBC Hgb Hct MCV MCH MCHC RDW Plt Count MPV Neut % (Auto) Lymph % (Auto) [place] % (Auto) Eos % (Auto) Baso % (Auto) Neut # (Auto) Lymph # (Auto) [place] # (Auto) Eos # (Auto) Baso # (Auto) Differential Comment PT INR APTT Puncture Site pCO2 pO2 HCO3 ABG pH ABG Total CO2 ABG O2 Saturation ABG Base Excess Jake Test ABG Potassium A-a O2 Difference Respiratory Index Sodium Chloride Glucose Lactate Vent Mode Mechanical Rate FiO2 Tidal Volume PEEP Potassium Carbon Dioxide Anion Gap BUN Creatinine Est GFR ( Amer) Est GFR (Non-Af Amer) POC Glucose (mg/dL) 199 H 146 H 126 H Random Glucose Calcium Phosphorus Magnesium Total Bilirubin AST ALT Alkaline Phosphatase Total Protein Albumin Globulin Albumin/Globulin Ratio Free T4 Thyroxine (T4) Free T3 pg/mL TSH 3rd Generation Thyroid Stim Immunoglob Arterial Blood Potassium Smooth Muscle Ab Titer Anti-Smooth Muscle Ab HSV Source Description HSV I IgG Ab HSV II IgG HSV I DNA PCR HSV II DNA PCR 03/30/18 03/30/18 03/30/18 05:42 12:38 17:56 WBC RBC Hgb Hct MCV MCH MCHC RDW Plt Count MPV Neut % (Auto) Lymph % (Auto) [place] % (Auto) Eos % (Auto) Baso % (Auto) Neut # (Auto) Lymph # (Auto) [place] # (Auto) Eos # (Auto) Baso # (Auto) Differential Comment PT INR APTT Puncture Site pCO2 pO2 HCO3 ABG pH ABG Total CO2 ABG O2 Saturation ABG Base Excess Jake Test ABG Potassium A-a O2 Difference Respiratory Index Sodium Chloride Glucose Lactate Vent Mode Mechanical Rate FiO2 Tidal Volume PEEP Potassium Carbon Dioxide Anion Gap BUN Creatinine Est GFR ( Amer) Est GFR (Non-Af Amer) POC Glucose (mg/dL) 147 H 200 H 196 H Random Glucose Calcium Phosphorus Magnesium Total Bilirubin AST ALT Alkaline Phosphatase Total Protein Albumin Globulin Albumin/Globulin Ratio Free T4 Thyroxine (T4) Free T3 pg/mL TSH 3rd Generation Thyroid Stim Immunoglob Arterial Blood Potassium Smooth Muscle Ab Titer Anti-Smooth Muscle Ab HSV Source Description HSV I IgG Ab HSV II IgG HSV I DNA PCR HSV II DNA PCR 03/31/18 03/31/18 03/31/18 00:10 04:25 05:27 WBC RBC Hgb Hct MCV MCH MCHC RDW Plt Count MPV Neut % (Auto) Lymph % (Auto) [place] % (Auto) Eos % (Auto) Baso % (Auto) Neut # (Auto) Lymph # (Auto) [place] # (Auto) Eos # (Auto) Baso # (Auto) Differential Comment PT INR APTT Puncture Site Rr pCO2 40 pO2 82 HCO3 31.3 H ABG pH 7.51 H ABG Total CO2 33.1 H ABG O2 Saturation 98.9 H ABG Base Excess 8.2 H Jake Test Pos ABG Potassium 4.0 A-a O2 Difference 225.0 Respiratory Index 2.7 Sodium 142.0 Chloride 109.0 H Glucose 140 H Lactate 1.3 Vent Mode Prvc Mechanical Rate 12 FiO2 50.0 Tidal Volume 380 PEEP 5 Potassium Carbon Dioxide Anion Gap BUN Creatinine Est GFR ( Amer) Est GFR (Non-Af Amer) POC Glucose (mg/dL) 205 H 154 H Random Glucose Calcium Phosphorus Magnesium Total Bilirubin AST ALT Alkaline Phosphatase Total Protein Albumin Globulin Albumin/Globulin Ratio Free T4 Thyroxine (T4) Free T3 pg/mL TSH 3rd Generation Thyroid Stim Immunoglob Arterial Blood Potassium 4.0 Smooth Muscle Ab Titer Anti-Smooth Muscle Ab HSV Source Description HSV I IgG Ab HSV II IgG HSV I DNA PCR HSV II DNA PCR 03/31/18 03/31/18 03/31/18 06:00 06:00 06:00 WBC 10.5 RBC 3.62 L Hgb 11.6 Hct 34.2 MCV 94.5 MCH 32.0 H MCHC 33.9 RDW 15.0 H Plt Count 95 L MPV 11.3 Neut % (Auto) 73.5 Lymph % (Auto) 14.1 L [place] % (Auto) 8.5 Eos % (Auto) 3.6 Baso % (Auto) 0.3 Neut # (Auto) 7.7 H Lymph # (Auto) 1.5 [place] # (Auto) 0.9 H Eos # (Auto) 0.4 Baso # (Auto) 0.0 Differential Comment PT 25.4 H INR 2.3 APTT 44 H Puncture Site pCO2 pO2 HCO3 ABG pH ABG Total CO2 ABG O2 Saturation ABG Base Excess Jake Test ABG Potassium A-a O2 Difference Respiratory Index Sodium 144 Chloride 108 H Glucose Lactate Vent Mode Mechanical Rate FiO2 Tidal Volume PEEP Potassium 4.2 Carbon Dioxide 31 H Anion Gap 10 BUN 34 H Creatinine 0.5 L Est GFR ( Amer) > 60 Est GFR (Non-Af Amer) > 60 POC Glucose (mg/dL) Random Glucose 139 H Calcium 7.6 L Phosphorus 2.5 Magnesium 2.0 Total Bilirubin 11.9 H AST 512 H D ALT 470 H D Alkaline Phosphatase 79 Total Protein 4.8 L Albumin 1.9 L Globulin 2.9 Albumin/Globulin Ratio 0.6 L Free T4 Thyroxine (T4) 6.80 Free T3 pg/mL 9.14 H TSH 3rd Generation < 0.02 L Thyroid Stim Immunoglob Arterial Blood Potassium Smooth Muscle Ab Titer Anti-Smooth Muscle Ab HSV Source Description HSV I IgG Ab HSV II IgG HSV I DNA PCR HSV II DNA PCR 03/31/18 03/31/18 03/31/18 06:00 11:31 17:43 WBC RBC Hgb Hct MCV MCH MCHC RDW Plt Count MPV Neut % (Auto) Lymph % (Auto) [place] % (Auto) Eos % (Auto) Baso % (Auto) Neut # (Auto) Lymph # (Auto) [place] # (Auto) Eos # (Auto) Baso # (Auto) Differential Comment PT INR APTT Puncture Site pCO2 pO2 HCO3 ABG pH ABG Total CO2 ABG O2 Saturation ABG Base Excess Jake Test ABG Potassium A-a O2 Difference Respiratory Index Sodium Chloride Glucose Lactate Vent Mode Mechanical Rate FiO2 Tidal Volume PEEP Potassium Carbon Dioxide Anion Gap BUN Creatinine Est GFR ( Amer) Est GFR (Non-Af Amer) POC Glucose (mg/dL) 168 H 144 H Random Glucose Calcium Phosphorus Magnesium Total Bilirubin AST ALT Alkaline Phosphatase Total Protein Albumin Globulin Albumin/Globulin Ratio Free T4 4.76 H Thyroxine (T4) Free T3 pg/mL TSH 3rd Generation Thyroid Stim Immunoglob Arterial Blood Potassium Smooth Muscle Ab Titer Anti-Smooth Muscle Ab HSV Source Description HSV I IgG Ab HSV II IgG HSV I DNA PCR HSV II DNA PCR Fingerstick Blood Sugar Results: 144 Assessment/Plan - Assessment and Plan (Free Text) Assessment: 72 year old female with past medical history of recently diagnosed hyperthyroidism is admitted for intractable diarrhea, N/V likely 2/2 gastroenteritis vs. cholecystitis vs. hyperthyroidism. Abdominal US on admission showed cholelithiasis with gallbladder wall thickening and small amount of pericholecystic fluid which could represent acute cholecystitis. HIDA - negative, cystic duct patent. Patient admitted to ICU for respiratory distress likely 2/2 to thyroid storm. Patient intubated in the ICU and started on Levophed and Bicarb drip, later started on vasopressin drip. Currently being treat for Thyroid Storm. Off Sodium Bicarb Drip OFf Levophed Drip Plan: Neuro: A: AMS GCS: 4T Sedation: Propofol Drip Weened today Head/Neck CTA: Negative for any occlusion or significant stenosis. MRI Brain (03/31/18): An Atypical pattern of restricted diffusion is identified affecting primarly gyri of the b/l frontal and temporal lobes with the brainstem and basal ganglia appearing spared. Please See Full Reprot EEG per Neuro shows CVA vs HSV Encephalitis Repeat EEG AFTER patient is OFF sedation PENDING, F/U Keppra 1500mg Q12H Consider Lumbar Tap. Cardio A: tachycardia 2/2 to thyroid storm (improving), Hypotension (Improving), Acute Systolic CHF ECHO showed EF of 20% Cont. Propanolol Levophed Drip PRN - Currently Stopped Cont. Vasopressin Drip Cont. Midodrine 5mg PO Q8H Cardiology on Consult, Recs appreciated. Pulm: Intubated PRVC 16RR, 40% Fi02, 400 TV, and 5 PEEP ABG (03/25) 7.22/32/49/14 ABG (03/26) 7.35/27/179/17.9 ABG (03/28): 7.57/43/76/37.1 ABG (03/31): 7.51/40/82/31.3 Renal A: Metabolic Acidosis, Hypocalcemia, MICHELLE (Resolved) NS @ 75 mls/hr GI A: Elevated LFTs (Improving ), Likely Shock liver vs Medication induced. . Diarrhea, HLD Monitor Pepcid BID Liquid Diet. Stool occult blodd - POSITIVE Consider GI Consult. C Diff Ordered - NEGATIVE Fecal Leukocytes ORdered -NEGATIVE Prevalite Endo: A: Hyperthyroidism, Thyroid Storm, Acute Thyroiditis Free T4 Downtrending Thyroperoxidase AB - Elevated, Follow up TIS Thyroglobulin Ab <1 Cont. PTU 150mg PO TID Propanolol 10mg Daily Thyroid US: no nodules, cysts, or masses noted Endocrinology Consulted, Recs Appreciated Heme/Onc A: Thrombycytopenia (Improving) Lovenox DC'd Monitor H&H and signs of bleeding. Smooth Muscle Ab- POSITIVE, Anti-Mitochondrial Ab- NEGATIVE, ID: A: Febrile likely 2/2 to thyroid storm vs UTI, Band Neutrophils, Leukocytosis ( improving), Possible HSV Encephalitis Cont. Cefepime 1gm Q12H, Vanco 1g Q24H Urine Culture Grew Yeast Species. Repeat Urine Culture - NEGATIVE PRN Tylenol F/U Pancultures | Lactate 12.1 from 11.4 yesterday. ProCal Elevated at 4.09 HSV 1 AB - POSITIVE HIV - NEGATIVE HEpatitis Panel - NEGATIVE C. Diff - NEGATIVE Proph Lovenox (Held) and Pepcid Patient seen and discussed with Attending Blanca Carmen, PGY- 1"
--- NOTE | 2018-03-31 20:46 | CP.PCM.PN ---
Subjective - Date & Time of Evaluation Date of Evaluation: 03/31/18 Time of Evaluation: 18:45 - Subjective Subjective: Hospitalist Service/Medical Attending Note Patient seen and examined. Case discussed with ICU and endocrinology. Patient is accompanied by her two daughters, boyfriend in law, and other family members. Patient's primary contact is her daughter, Angelina Berger [phone]. Patient has went and completed Brain MRI today. Patient is off sedation by ICU. Patient remains intubated, on ventilated, on one pressor. Unable to complete ROS secondary to patient's clinical state. Discussed with RnYue-->when she received patient from MRI, patient does cry when she appears to talk to her, +cough. When I am at bedside, both patient's feet appeared to shake. Patient is very weak. unable to assess if patient able to withdraw to pain on my exam nor respond to her name. Patient had small bowel movement; patient was on Lactulose today and stool became more watery and lactulose was discontinued. Discussed with endocrinology, to continue PTU 150mg PO Q8H; restarted on the JAN. Reviewed patient's history with daughters, patient has multiple smoking year history, does not regularly see a doctor, until recently she was having leg edema, which her prompted her visits with the endocrinology, cardiology, and PMD. Patient noted to have "stool that runs through her" for the past 3 years and unintentional weight loss from 125-->85 lbs. She was told in the past her thyroid was enlarged 3 years ago. Objective - Vital Signs/Intake and Output Vital Signs (last 24 hours): Temp Pulse Resp BP Pulse Ox 97.5 F L 59 L 16 98/39 L 96 03/31/18 16:30 03/31/18 19:00 03/31/18 19:00 03/31/18 18:50 03/31/18 19:00 Intake and Output: 03/31/18 04/01/18 18:59 06:59 Intake Total 1497.7 Output Total 470 Balance 1027.7 - Medications Medications: Current Medications Albumin Human (Albumin Human 25% (12.5 Gm/50 Ml)) 12.5 gm IV Q12H NEREYDA Stop: 04/02/18 06:16 Last Admin: 03/31/18 17:58 Dose: 12.5 gm Ascorbic Acid (Vitamin C 500 Mg Tab) 500 mg PO DAILY [facility] Last Admin: 03/31/18 09:55 Dose: 500 mg Cholestyramine Resin (Prevalite) 4 gm PO Q8H [facility] Last Admin: 03/31/18 17:43 Dose: 4 gm Famotidine (Pepcid) 20 mg PO BID [facility] Last Admin: 03/31/18 17:44 Dose: 20 mg Folic Acid (Folic Acid) 1 mg PO DAILY [facility] Last Admin: 03/31/18 09:55 Dose: 1 mg Norepinephrine Bitartrate 4 mg (/ Dextrose) 254 mls @ 15.24 mls/hr IV .[id number] PRN; Protocol; 4 MCG/MIN PRN Reason: TITRATE PER MD ORDER Last Titration: 03/31/18 02:18 Dose: 0 mcg/min, 0 mls/hr Vasopressin 40 units/ Sodium (Chloride) 40 mls @ 0.6 mls/hr IV .Q24H NEREYDA; 0.01 UNITS/MIN PRN Reason: Protocol Last Admin: 03/31/18 14:00 Dose: 0.03 units/min, 1.8 mls/hr Vancomycin/Sodium Chloride (Vancomycin 1 Gm/Ns 200 Ml) 1 gm in 200 mls @ 166.7 mls/hr IVPB Q24H NEREYDA PRN Reason: Protocol Stop: 04/01/18 10:01 Last Admin: 03/31/18 09:54 Dose: 166.7 mls/hr Sodium Chloride (Sodium Chloride 0.9%) 1,000 mls @ 75 mls/hr IV .[id number] [facility] Last Admin: 03/31/18 17:57 Dose: 75 mls/hr Propofol (Diprivan) 1,000 mg in 100 mls @ 1.742 mls/hr IV .Q24H PRN; Protocol; 5 MCG/KG/MIN PRN Reason: TITRATE PER MD ORDER Last Titration: 03/31/18 12:00 Dose: 0 mcg/kg/min, 0 mls/hr Levetiracetam 1,500 mg/ (Dextrose) 115 mls @ 420 mls/hr IVPB Q12H [facility] Last Admin: 03/31/18 09:47 Dose: 420 mls/hr Cefepime HCl 1 gm/ Dextrose 50 mls @ 100 mls/hr IVPB Q12H [facility] PRN Reason: Protocol Last Admin: 03/31/18 11:15 Dose: 100 mls/hr Insulin Aspart (Novolog) 0 unit SC Q6H NEREYDA PRN Reason: Protocol Last Admin: 03/31/18 17:48 Dose: Not Given Midodrine (Proamatine) 5 mg PO Q8H [facility] Last Admin: 03/31/18 13:36 Dose: 5 mg Multivitamins/Vitamin C (Multi-Delyn Liquid) 5 ml PO DAILY [facility] Last Admin: 03/31/18 09:55 Dose: 5 ml Propranolol HCl (Inderal) 10 mg PO DAILY [facility] Last Admin: 03/31/18 09:55 Dose: 10 mg Propylthiouracil (Propylthiouracil) 150 mg PO TID [facility] Thiamine HCl (Vitamin B1 Tab) 200 mg PO Q8H [facility] Last Admin: 03/31/18 17:43 Dose: 200 mg - Labs Labs: 03/31/18 06:00 03/31/18 06:00 PT 25.4 SECONDS (9.7-12.2) H 03/31/18 06:00 INR 2.3 03/31/18 06:00 APTT 44 SECONDS (21-34) H 03/31/18 06:00 - Constitutional Appears: Unkempt, Older Than Stated Age, Confused, Chronically Ill, Other ( jaundiced) - Head Exam Additional comments: jaundiced TLC over left neck Intubated OGT tube Garcia - Eye Exam Eye Exam: PERRL Pupil Exam: PERRL Additional comments: reactive to light, no miosis/no mydrasis, no scleral icterus - ENT Exam ENT Exam: Mucous Membranes Dry - Neck Exam Neck Exam: Thyromegaly (palpable) - Respiratory Exam Respiratory Exam: Decreased Breath Sounds, Rales Additional comments: intubated on vent +rales - Cardiovascular Exam Cardiovascular Exam: Bradycardia, +S1, +S2 - GI/Abdominal Exam GI & Abdominal Exam: Soft, Normal Bowel Sounds Additional comments: no rebound, no guarding, no rigidity I palpated on the stomach but did not see any visual reaction - Extremities Exam Additional comments: upper extremities swelling bilateral; pitting lower extremities swelling bilateral: extends past the knees negative babinski' bilateral - Neurological Exam Neurological Exam: Altered Additional comments: unable to test strength secondary to altered mental status patient during my exam is not retracting to pain, not reacting to voice No observed decrebiate or dolls hand position Assessment and Plan (1) Acute respiratory failure Assessment & Plan: intubated 03/26/18 vent management per ICU weaning per ICU Status: Acute (2) Metabolic encephalopathy Assessment & Plan: Neurology (Dr. Gross/Javid) on board etiologies: thyroid storm; infectious etiology; seizure related? Completed MRI which was inconclusive except ruled out brainstem stroke; varied differential diagnoses on report Anti-seizure medication: Keppra 1500mg IV Q12H Given consideration for HSV encephalitis: Patient started on Acyclovir 500mg IV Q12H (started on 03/27/18), Cefepime 1gm IV Q12 (active since 03/30/18), and Vancomycin 1gm IVPB Q24H (active since 03/27/18) * Blood cultures (03/24/18): no growth after 5 days X2 * Blood cultures (03/25/18): no growth after 5 days X2 * HSV 1 DNA and HSV II DNA: not detected * HIV egative 03/28 EEG: Abnormal, frequent PLEDS 03/27 EEG: abnormal awake and drowsy EEG. periodic Lateralized epilpetiform discharges indicate pathology in left temporal lobe (on DD: HSV encephalitis; post stroke, post icital); spikes ~ seizures Brain MRI w/o contrast (03/31/18): atypical pattern of restricted diffusion is identified affecting primarily gyri of the bilateral frontal and temporal lobes w brainstem and basal ganglia appearing spared. Pattern of ischemia including--- > post seizure,HSV, hypoxic ischemic encephalopathy, CJD, venous sinus thrombosis. No evidence of brainstem infarction on acute or subacute CT Head (03/28/18): no acute intracranial abnormalities. No significant findings to account for clinical presentation. No significant interval change compared to prior examinations (prior head CT 03/26) CT Head and Neck (03/27/18): no occlusion or significant stenosis appreciated within intracranial and neck arterial circulation 03/31: off sedation by ICU; completed MRI; ICU discussed with family regarding findings; will need to f/u neurology regarding LP Status: Acute (3) Thyroid storm Assessment & Plan: Endocrinology (Dr. House) on board-->help appreciated titrate PTU 150mg PO Q8H Propranolol 10mg PO daily Anti-TPO: elevated (upper 70s) Thyroglobulin <1 Thyroglobulin: 1360.2 TSI 401-->likely Graves disease TSH: <0.02 Total T3: elevated 6.42--->1.76 (03/26-->03/29) Free T3: >22.80--->9.14 (03/26-->03/31) Free T4: >6.99-->4.76 (03/26-->03/31) Thyroxine: 6.80 Thyroid US (03/25/18): mildly enlarged right lobe and isthmus are identified with the left lobe upper limits normal size. Overaal parenchymal appearance is heterogenous in echotexture without focal mass or cyst is defined Status: Acute (4) Cardiomyopathy Assessment & Plan: Cardiology (Dr. Trevino) on case--> help appreciated Likely due to thyrotoxicois Inderal 10mg PO daily Echocardiogram (03/25/18): left ventricle is mildly dilated, normal left ventricular wall thickness, systolic function is severely impaired. global hypokinesis of the left ventricle. No left ventricle thrombus noted on this study. Mild aortic regurgitation. Mitral regurgitation is mild to moderate moderate tricupsid regurgitation Chest xray (03/31/18): decreased pleural effusions Status: Acute (5) Smoker Status: Chronic (6) Seizure disorder Assessment & Plan: Neurology (Dr. Gross/Dr. Hua) on board-->help appreciated Unclear if seizure is mainfestation of thyroid storm, which is rare or if HSV encephalitis off profolol 03/31 per ICU Keppra 1500mg IV Q12H Given consideration for HSV encephalitis: Patient started on Acyclovir 500mg IV Q12H (started on 03/27/18) * Blood cultures (03/24/18): no growth after 5 days X2 * Blood cultures (03/25/18): no growth after 5 days X2 * HSV 1 DNA and HSV II DNA: not detected * HIV egative 03/28 EEG: Abnormal, frequent PLEDS 03/27 EEG: abnormal awake and drowsy EEG. periodic Lateralized epilpetiform discharges indicate pathology in left temporal lobe (on DD: HSV encephalitis; post stroke, post icital); spikes ~ seizures Brain MRI w/o contrast (03/31/18): atypical pattern of restricted diffusion is identified affecting primarily gyri of the bilateral frontal and temporal lobes w brainstem and basal ganglia appearing spared. Pattern of ischemia including--- > post seizure,HSV, hypoxic ischemic encephalopathy, CJD, venous sinus thrombosis. No evidence of brainstem infarction on acute or subacute Status: Acute (7) Abdominal pain Assessment & Plan: Consult initially for acute cholecystitis General surgery (Dr. Cummins) on board-->help appreciated * no acute general surgical intervention; IV abx GI (Dr. Pacheco) on board-->help appreciated 03/25/18 HIDA Scan: normal; cyst duct is patent CT abdomen/pelvis (IV contrast): gallbladder distended, thickwalled w minimal stranding of the pericholecystic fat. further findings per report Gallbladder US (03/25/18): cholelithiasis with gallbladder wall thickening and small amount of pericholecystic fluid. Status: Acute (8) Transaminitis Assessment & Plan: 03/31: Downtrending Ammonia improved; was on lactulose; d/c secondary to diarrhea today Note: patient is on PTU, Acyclovir, Cefepime, fluonazole Anti-Smooth Ab: 1:20 is positive (unclear if Graves disease affects this) Anti-mitochondiral ab: negative Completed 3 doses of Vitamin K 10mg today GI (Dr. Pacheco's group) on board-->help appreciated Hepatitis panel negative multifactorial: drug induced, acute phase reactant CT abdomen/pelvis (IV contrast): gallbladder distended, thickwalled w minimal stranding of the pericholecystic fat. further findings per report Gallbladder US (03/25/18): cholelithiasis with gallbladder wall thickening and small amount of pericholecystic fluid. Noted liver hypodensity that cannot be further characterized on current examination Status: Acute (9) Swelling Assessment & Plan: low albumin third spacing Receiving IV albumin Status: Acute (10) Thrombocytopenia Assessment & Plan: improving off DVT ppx monitor to determine for possible lp? Status: Acute (11) Prophylactic measure Assessment & Plan: intubated 03/26 TLC 03/26 OGT tube NGT Jose Berger (daughter, point of contact): [phone] chemical anticoagulation contraindicated secondary to thrombocytopenia Pepcid 20mg PO day NS 75 cc/hr Off sedation 03/31 On pressor Status: Acute
[2018-03-31] MEDS: Acyclovir 500 MG in Sodium Chloride 0.9% 100 ML IV SCH (21:35)
--- NOTE | 2018-03-31 22:52 | PN ---
DATE: ENDOCRINOLOGY FOLLOWUP NOTE LOCATION: ICU, room 17. This is a 72-year-old female with persistent unresponsiveness and recent acute respiratory failure, now being followed closely for metabolic management. Her glycemic levels are fluctuating, but within acceptable metabolic ranges and have ranged from 154 to 168 mg/dL. It was 205 earlier this morning as noted. The latest chemistry showed a BUN of 34, sodium 144, potassium 4.2, chloride 108, CO2 of 31, glucose 139, and creatinine 0.5. Her liver transaminases are slowly improving and trending downwards as noted. Total bilirubin is 11.9 at this time. The repeat thyroid study showed a total T4 of 6.8 with a free T4 of 4.76 and a free T3 of 9.14 and a TSH of less than 0.02. She was treated with medical therapy using Propylthiouracil, Propylthiouracil at the supramaximal and dosing regimen as given by the medical staff of Propylthiouracil given as 300 every 8 hours as noted. However at this time, it has been discontinued as noted. 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 She was also empirically started on IV steroids which actually I discontinued eventually because of the normal cortisol values as noted thereof. She is being seen now by multiple specialist at this time, and the clinical impressions and recommendations have been noted, especially with the recent GI evaluation and management thereof. We will obtain serial thyroid studies for now because of the markedly elevated liver transaminases, would prudently hold off the Propylthiouracil medications at this time and observe her metabolic response thereof. We will follow up with you. Ani House MD
[2018-03-31] MEDS ORDERED: levETIRAcetam 1,000 MG in Sodium Chloride 0.9% 100 ML IVPB STA (23:44)
[2018-03-31] MEDS ORDERED: Lacosamide 200mg/20ml Inj IV SCH (23:45)
--- NOTE | 2018-03-31 23:45 | PCM.EEG ---
Electroencephalogram Report - Electroencephalogram Report Procedure Date: 03/30/18 Interpretation: one electrographic seizure noted arising from left temporal lobe. frequent pleds and triphasics Impression: abnormal eeg. prolonged seizure and PLEDS indicate epileptiform activity.
[2018-03-31] MEDS: Propofol 10 mg/ml 1,000 MG/100 ML VIAL IV PRN (23:51)
[2018-04-01] MEDS ORDERED: LACOSAMIDE 200 MG/20 ML IV SCH ×2
[2018-04-01] MEDS: Sodium Chloride 0.9% 1,000 ML IV SCH ×2 (00:59→17:01)
[2018-04-01] MEDS: Albumin Human 25% (12.5 gm/50 ml) IV SCH ×2 (05:14→17:18)
[2018-04-01] MEDS: (Novolog) Insulin Aspart, Recombinant 100 u/ml 10 ml vial SC SCH ×3 (05:15→17:44)
[2018-04-01 05:54] LABS: ABG ALLEN TEST POS; ARTERIAL BLOOD GAS HCO3 28.4 mmol/L (21-28); ARTERIAL BLOOD GAS HEMOGLOBIN 11.8 g/dL (11.7-17.4); ARTERIAL BLOOD GAS O2 SAT 99.9 % (95-98); ARTERIAL BLOOD GAS PCO2 43 mm/Hg (35-45); ARTERIAL BLOOD GAS PH 7.44 (7.35-7.45); ARTERIAL BLOOD GAS PO2 91 mm/Hg (80-100); ARTERIAL BLOOD GAS TCO2 30.5 mmol/L (22-28)
[2018-04-01 06:27] LABS: BILIRUBIN,DIRECT 11.4 mg/dL (0.0-0.4)
--- NOTE | 2018-04-01 08:45 | RAD ---
HISTORY: intubated COMPARISON: 03/31/2018 FINDINGS: LUNGS: Hazy opacity in lower left seymour thorax possibly due to dependent pleural fluid. PLEURA: Left pleural effusion, small. No right pleural effusion. No pneumothorax. CARDIOVASCULAR: ET tube, NG tube and left IJ central venous catheter unchanged. OSSEOUS STRUCTURES: No significant abnormalities. VISUALIZED UPPER ABDOMEN: Normal. OTHER FINDINGS: None. IMPRESSION: Probable small left pleural effusion. Otherwise unremarkable. Lines and tubes unchanged.
--- NOTE | 2018-04-01 08:48 | CP.PCM.PN ---
<Jeremias Ribeiro - Last Filed: 04/01/18 08:52> Subjective - Date & Time of Evaluation Date of Evaluation: 04/01/18 Time of Evaluation: 07:15 - Subjective Subjective: PGY4 GI Follow-up Pt seen and examined bedside Sedated No overnight events still off of Levophed ROS: 12 point ROS could not be conducted Objective - Vital Signs/Intake and Output Vital Signs (last 24 hours): Temp Pulse Resp BP Pulse Ox 97.6 F 67 20 104/54 L 94 L 04/01/18 08:00 04/01/18 08:00 04/01/18 08:00 04/01/18 07:51 04/01/18 08:00 Intake and Output: 04/01/18 04/01/18 06:59 18:59 Intake Total 1548.8 197.6 Output Total 490 25 Balance 1058.8 172.6 - Medications Medications: Current Medications Albumin Human (Albumin Human 25% (12.5 Gm/50 Ml)) 12.5 gm IV Q12H [facility] Stop: 04/02/18 06:16 Last Admin: 04/01/18 05:14 Dose: 12.5 gm Ascorbic Acid (Vitamin C 500 Mg Tab) 500 mg PO DAILY [facility] Last Admin: 03/31/18 09:55 Dose: 500 mg Cholestyramine Resin (Prevalite) 4 gm PO Q8H [facility] Last Admin: 03/31/18 23:27 Dose: 4 gm Famotidine (Pepcid) 20 mg PO DAILY [facility] Folic Acid (Folic Acid) 1 mg PO DAILY [facility] Last Admin: 03/31/18 09:55 Dose: 1 mg Norepinephrine Bitartrate 4 mg (/ Dextrose) 254 mls @ 15.24 mls/hr IV .[id number] PRN; Protocol; 4 MCG/MIN PRN Reason: TITRATE PER MD ORDER Last Titration: 03/31/18 02:18 Dose: 0 mcg/min, 0 mls/hr Vasopressin 40 units/ Sodium (Chloride) 40 mls @ 0.6 mls/hr IV .Q24H [facility]; 0.01 UNITS/MIN PRN Reason: Protocol Last Admin: 03/31/18 14:00 Dose: 0.03 units/min, 1.8 mls/hr Vancomycin/Sodium Chloride (Vancomycin 1 Gm/Ns 200 Ml) 1 gm in 200 mls @ 166.7 mls/hr IVPB Q24H [facility] PRN Reason: Protocol Stop: 04/01/18 10:01 Last Admin: 03/31/18 09:54 Dose: 166.7 mls/hr Sodium Chloride (Sodium Chloride 0.9%) 1,000 mls @ 75 mls/hr IV .[id number] [facility] Last Admin: 04/01/18 00:59 Dose: 75 mls/hr Propofol (Diprivan) 1,000 mg in 100 mls @ 1.742 mls/hr IV .Q24H PRN; Protocol; 5 MCG/KG/MIN PRN Reason: TITRATE PER MD ORDER Last Admin: 03/31/18 23:51 Dose: 5 mcg/kg/min, 1.742 mls/hr Levetiracetam 1,500 mg/ (Dextrose) 115 mls @ 420 mls/hr IVPB Q12H [facility] Last Admin: 03/31/18 21:30 Dose: 420 mls/hr Cefepime HCl 1 gm/ Dextrose 50 mls @ 100 mls/hr IVPB Q12H [facility] PRN Reason: Protocol Last Admin: 03/31/18 23:26 Dose: 100 mls/hr Acyclovir 500 mg/ Sodium (Chloride) 100 mls @ 100 mls/hr IV Q12H [facility] PRN Reason: Protocol Last Admin: 03/31/18 21:35 Dose: 100 mls/hr Lacosamide (Vimpat 200mg/20ml) 10 mls @ 20 mls/hr IV Q12H [facility] Last Admin: 04/01/18 00:47 Dose: 20 mls/hr Insulin Aspart (Novolog) 0 unit SC Q6H [facility] PRN Reason: Protocol Last Admin: 04/01/18 05:15 Dose: Not Given Midodrine (Proamatine) 5 mg PO Q8H [facility] Last Admin: 04/01/18 05:13 Dose: 5 mg Multivitamins/Vitamin C (Multi-Delyn Liquid) 5 ml PO DAILY [facility] Last Admin: 03/31/18 09:55 Dose: 5 ml Propranolol HCl (Inderal) 10 mg PO DAILY [facility] Last Admin: 03/31/18 09:55 Dose: 10 mg Propylthiouracil (Propylthiouracil) 150 mg PO TID [facility] Last Admin: 03/31/18 21:36 Dose: 150 mg Thiamine HCl (Vitamin B1 Tab) 200 mg PO Q8H [facility] Last Admin: 04/01/18 00:47 Dose: 200 mg - Labs Labs: 03/31/18 06:00 03/31/18 06:00 PT 25.4 SECONDS (9.7-12.2) H 03/31/18 06:00 INR 2.3 03/31/18 06:00 APTT 44 SECONDS (21-34) H 03/31/18 06:00 - Constitutional Appears: Non-toxic, No Acute Distress, Chronically Ill - Head Exam Head Exam: ATRAUMATIC, NORMOCEPHALIC - Eye Exam Eye Exam: Scleral icterus - Neck Exam Neck Exam: Normal Inspection - Respiratory Exam Respiratory Exam: Clear to Ausculation Bilateral, NORMAL BREATHING PATTERN. absent: Rales, Rhonchi, Wheezes, Respiratory Distress - Cardiovascular Exam Cardiovascular Exam: REGULAR RHYTHM, +S1, +S2 - GI/Abdominal Exam GI & Abdominal Exam: Soft, Normal Bowel Sounds. absent: Distended, Firm, Guarding, Rigid, Tenderness, Organomegaly - Extremities Exam Extremities Exam: Pedal Edema. absent: Joint Swelling - Neurological Exam Neurological Exam: Altered - Psychiatric Exam Additional comments: could not assess - Skin Additional comments: juandiced Assessment and Plan - Assessment and Plan (Free Text) Assessment: Albina Jewell is a 72F w/ hx of hyperthyroidism who presented w/ near syncope, diarrhea, and abd pain. Pt was found to have acute cholecystitis on imaging. Course complicated with sepsis, rhabdomyolysis, thyroid storm, respiratory failure Elevate liver enzymes likely multifactorial from thyroid storm, sepsis, mediation induced, rhabdo Repiratory Failure Diarrhea Thyroid storm MICHELLE Sepsis cholelithiasis Hypodense lesion in liver, small, inconclusive on CT Plan: -factor 2, 5, 8 levels pending -continue to monitor LFTs, ASt/ALT improving , bilirubin rising -recheck INR in the AM -MELD Na: 25 03/31/18 -Hep viral serologies neg -HIDA neg -CT revealed normal CBD, + cholelithiasis -recommend CT liver, once medially stable, not urgent, to eval hepatic lesion -Morning Labs pending -anti-smooth antibodies weakly positive -will get repeat abd U/S to eval liver and GB, as well as hepatic and portal vein flow D/W Dr. Pacehco <Loc Pacheco - Last Filed: 04/01/18 09:37> Objective - Vital Signs/Intake and Output Vital Signs (last 24 hours): Temp Pulse Resp BP Pulse Ox 97.6 F 67 20 104/54 L 94 L 04/01/18 08:00 04/01/18 08:00 04/01/18 08:00 04/01/18 07:51 04/01/18 08:00 Intake and Output: 04/01/18 04/01/18 06:59 18:59 Intake Total 1548.8 197.6 Output Total 490 25 Balance 1058.8 172.6 - Medications Medications: Current Medications Albumin Human (Albumin Human 25% (12.5 Gm/50 Ml)) 12.5 gm IV Q12H [facility] Stop: 04/02/18 06:16 Last Admin: 04/01/18 05:14 Dose: 12.5 gm Ascorbic Acid (Vitamin C 500 Mg Tab) 500 mg PO DAILY [facility] Last Admin: 03/31/18 09:55 Dose: 500 mg Cholestyramine Resin (Prevalite) 4 gm PO Q8H [facility] Last Admin: 03/31/18 23:27 Dose: 4 gm Famotidine (Pepcid) 20 mg PO DAILY [facility] Folic Acid (Folic Acid) 1 mg PO DAILY [facility] Last Admin: 03/31/18 09:55 Dose: 1 mg Norepinephrine Bitartrate 4 mg (/ Dextrose) 254 mls @ 15.24 mls/hr IV .[id number] PRN; Protocol; 4 MCG/MIN PRN Reason: TITRATE PER MD ORDER Last Titration: 03/31/18 02:18 Dose: 0 mcg/min, 0 mls/hr Vasopressin 40 units/ Sodium (Chloride) 40 mls @ 0.6 mls/hr IV .Q24H [facility]; 0.01 UNITS/MIN PRN Reason: Protocol Last Admin: 03/31/18 14:00 Dose: 0.03 units/min, 1.8 mls/hr Vancomycin/Sodium Chloride (Vancomycin 1 Gm/Ns 200 Ml) 1 gm in 200 mls @ 166.7 mls/hr IVPB Q24H [facility] PRN Reason: Protocol Stop: 04/01/18 10:01 Last Admin: 03/31/18 09:54 Dose: 166.7 mls/hr Sodium Chloride (Sodium Chloride 0.9%) 1,000 mls @ 75 mls/hr IV .[id number] [facility] Last Admin: 04/01/18 00:59 Dose: 75 mls/hr Propofol (Diprivan) 1,000 mg in 100 mls @ 1.742 mls/hr IV .Q24H PRN; Protocol; 5 MCG/KG/MIN PRN Reason: TITRATE PER MD ORDER Last Admin: 03/31/18 23:51 Dose: 5 mcg/kg/min, 1.742 mls/hr Levetiracetam 1,500 mg/ (Dextrose) 115 mls @ 420 mls/hr IVPB Q12H [facility] Last Admin: 03/31/18 21:30 Dose: 420 mls/hr Cefepime HCl 1 gm/ Dextrose 50 mls @ 100 mls/hr IVPB Q12H [facility] PRN Reason: Protocol Last Admin: 03/31/18 23:26 Dose: 100 mls/hr Acyclovir 500 mg/ Sodium (Chloride) 100 mls @ 100 mls/hr IV Q12H [facility] PRN Reason: Protocol Last Admin: 03/31/18 21:35 Dose: 100 mls/hr Lacosamide (Vimpat 200mg/20ml) 10 mls @ 20 mls/hr IV Q12H [facility] Last Admin: 04/01/18 00:47 Dose: 20 mls/hr Insulin Aspart (Novolog) 0 unit SC Q6H [facility] PRN Reason: Protocol Last Admin: 04/01/18 05:15 Dose: Not Given Midodrine (Proamatine) 5 mg PO Q8H [facility] Last Admin: 04/01/18 05:13 Dose: 5 mg Multivitamins/Vitamin C (Multi-Delyn Liquid) 5 ml PO DAILY [facility] Last Admin: 03/31/18 09:55 Dose: 5 ml Propranolol HCl (Inderal) 10 mg PO DAILY [facility] Last Admin: 03/31/18 09:55 Dose: 10 mg Propylthiouracil (Propylthiouracil) 150 mg PO TID [facility] Last Admin: 03/31/18 21:36 Dose: 150 mg Thiamine HCl (Vitamin B1 Tab) 200 mg PO Q8H [facility] Last Admin: 04/01/18 00:47 Dose: 200 mg - Labs Labs: 03/31/18 06:00 03/31/18 06:00 PT 25.4 SECONDS (9.7-12.2) H 03/31/18 06:00 INR 2.3 03/31/18 06:00 APTT 44 SECONDS (21-34) H 03/31/18 06:00 Attending/Attestation - Attestation I have personally seen and examined this patient.: Yes I have fully participated in the care of the patient.: Yes I have reviewed all pertinent clinical information, including history, physical exam and plan: Yes Notes (Text): 04/01/18 09:34 I have seen and examined patient with GI fellow. No acute events overnight, she remains intubated and sedated in critical care unit. No reported abdominal pain, nausea, vomiting. Tolerating tube feeding without difficulty. Hyperthyroidism, thyroid storm Sepsis, cholecystitis Transaminitis - etiology DILI vs thyroid dysfunction vs cholestasis of sepsis vs obstructive pathology - Continue with tube feeding as tolerated - Continue with antibiotic therapy as per critical care team - LFTs slowly trending down, continue to monitor. Obtain abdominal US with doppler for further evaluation. - Follow up autoimmune serology testing - Will continue to monitor patient clinical course
[2018-04-01] MEDS: Multiple Vitamins Oral Solution PO SCH (09:33)
[2018-04-01] MEDS: Vancomycin 1 gm/NS 200 ml 1 GM/200 ML BAG IVPB SCH (09:34)
[2018-04-01] MEDS: Cholestyramine 4 gm/5.5 gm UD Packet PO SCH ×2 (09:35→16:59)
[2018-04-01 10:04] LABS: BASO % 0.2 % (0.0-2.0); EOS # 0.3 K/uL (0.0-0.7); EOS % 3.3 % (0.0-4.0); HEMOGLOBIN 11.4 g/dL (11.0-16.0); LYMPH # 1.3 K/uL (1.0-4.3); LYMPH % 12.6 % (20.0-40.0); MEAN CELL VOLUME 95.2 fL (81.0-99.0); MEAN CORPUSCULAR HGB CONC 33.6 g/dL (33.0-37.0); MEAN PLATELET VOLUME 11.2 fL (7.2-11.7); MONO # 1.1 K/uL (0.0-0.8); MONO % 10.6 % (0.0-10.0); NEUT # 7.4 K/uL (1.8-7.0); NEUT % 73.3 % (50.0-75.0); NRBC % 0.1 % (0.0-2.0); RBC 3.56 Mil/uL (3.80-5.20); RED CELL DISTRIBUTION WIDTH 15.5 % (11.5-14.5); WHITE BLOOD COUNT 10.1 K/uL (4.8-10.8)
[2018-04-01] MEDS: Acyclovir 500 MG in Sodium Chloride 0.9% 100 ML IV SCH (10:12)
[2018-04-01 10:33] LABS: ALB/GLOB RATIO 0.9 (1.0-2.1); ALBUMIN 2.6 g/dL (3.5-5.0); ALT/SGPT 259 U/L (9-52); AST/SGOT 167 U/L (14-36); BLOOD UREA NITROGEN 33 mg/dL (7-17); CALCIUM 7.7 mg/dl (8.6-10.4); GFR AFRICAN-AMERICAN > 60; GFR NON-AFRICAN AMERICAN > 60
[2018-04-01] MEDS ORDERED: Lacosamide 200mg/20ml 100 MG in Sodium Chloride 0.9% 100 ML IV SCH (13:00)
--- NOTE | 2018-04-01 13:11 | CP.PCM.PN ---
Subjective - Date & Time of Evaluation Date of Evaluation: 04/01/18 Time of Evaluation: 10:10 - Subjective Subjective: Patient feeling much better Nausea or vomiting Vital signs noted Objective - Vital Signs/Intake and Output Vital Signs (last 24 hours): Temp Pulse Resp BP Pulse Ox 97.6 F 70 21 101/51 L 95 04/01/18 11:53 04/01/18 12:00 04/01/18 12:00 04/01/18 11:50 04/01/18 12:00 Intake and Output: 04/01/18 04/01/18 06:59 18:59 Intake Total 1548.8 1069.4 Output Total 490 175 Balance 1058.8 894.4 - Medications Medications: Current Medications Albumin Human (Albumin Human 25% (12.5 Gm/50 Ml)) 12.5 gm IV Q12H [facility] Stop: 04/02/18 06:16 Last Admin: 04/01/18 05:14 Dose: 12.5 gm Ascorbic Acid (Vitamin C 500 Mg Tab) 500 mg PO DAILY [facility] Last Admin: 04/01/18 09:33 Dose: 500 mg Cholestyramine Resin (Prevalite) 4 gm PO Q8H [facility] Last Admin: 04/01/18 09:35 Dose: 4 gm Famotidine (Pepcid) 20 mg PO DAILY [facility] Last Admin: 04/01/18 09:33 Dose: 20 mg Folic Acid (Folic Acid) 1 mg PO DAILY [facility] Last Admin: 04/01/18 09:33 Dose: 1 mg Norepinephrine Bitartrate 4 mg (/ Dextrose) 254 mls @ 15.24 mls/hr IV .[id number] PRN; Protocol; 4 MCG/MIN PRN Reason: TITRATE PER MD ORDER Last Titration: 03/31/18 02:18 Dose: 0 mcg/min, 0 mls/hr Vasopressin 40 units/ Sodium (Chloride) 40 mls @ 0.6 mls/hr IV .Q24H [facility]; 0.01 UNITS/MIN PRN Reason: Protocol Last Titration: 04/01/18 12:11 Dose: 0.03 units/min, 1.8 mls/hr Sodium Chloride (Sodium Chloride 0.9%) 1,000 mls @ 75 mls/hr IV .[id number] [facility] Last Admin: 04/01/18 00:59 Dose: 75 mls/hr Propofol (Diprivan) 1,000 mg in 100 mls @ 1.742 mls/hr IV .Q24H PRN; Protocol; 5 MCG/KG/MIN PRN Reason: TITRATE PER MD ORDER Last Admin: 03/31/18 23:51 Dose: 5 mcg/kg/min, 1.742 mls/hr Levetiracetam 1,500 mg/ (Dextrose) 115 mls @ 420 mls/hr IVPB Q12H [facility] Last Admin: 04/01/18 09:33 Dose: 420 mls/hr Cefepime HCl 1 gm/ Dextrose 50 mls @ 100 mls/hr IVPB Q12H [facility] PRN Reason: Protocol Last Admin: 04/01/18 12:01 Dose: 100 mls/hr Acyclovir 500 mg/ Sodium (Chloride) 100 mls @ 100 mls/hr IV Q12H [facility] PRN Reason: Protocol Last Admin: 04/01/18 10:12 Dose: 100 mls/hr Lacosamide 100 mg/ Sodium (Chloride) 110 mls @ 110 mls/hr IV Q12H [facility] Last Admin: 04/01/18 12:55 Dose: 110 mls/hr Insulin Aspart (Novolog) 0 unit SC Q6H [facility] PRN Reason: Protocol Last Admin: 04/01/18 12:01 Dose: 2 unit Midodrine (Proamatine) 5 mg PO Q8H [facility] Last Admin: 04/01/18 05:13 Dose: 5 mg Multivitamins/Vitamin C (Multi-Delyn Liquid) 5 ml PO DAILY [facility] Last Admin: 04/01/18 09:33 Dose: 5 ml Propranolol HCl (Inderal) 10 mg PO DAILY [facility] Last Admin: 04/01/18 09:32 Dose: 10 mg Propylthiouracil (Propylthiouracil) 150 mg PO TID [facility] Last Admin: 04/01/18 09:32 Dose: 150 mg Thiamine HCl (Vitamin B1 Tab) 200 mg PO Q8H [facility] Last Admin: 04/01/18 09:33 Dose: 200 mg - Labs Labs: 04/01/18 09:57 04/01/18 09:57 PT 25.4 SECONDS (9.7-12.2) H 03/31/18 06:00 INR 2.3 03/31/18 06:00 APTT 44 SECONDS (21-34) H 03/31/18 06:00 - Constitutional Appears: No Acute Distress - ENT Exam ENT Exam: Mucous Membranes Moist - Respiratory Exam Respiratory Exam: absent: Chest Wall Tenderness - Cardiovascular Exam Cardiovascular Exam: absent: Gallop, JVD, Rubs - GI/Abdominal Exam GI & Abdominal Exam: Soft, Normal Bowel Sounds - Back Exam Back Exam: absent: CVA tenderness (L) - Neurological Exam Neurological Exam: Alert - Psychiatric Exam Psychiatric exam: Normal Affect - Skin Skin Exam: absent: Cyanosis Assessment and Plan - Assessment and Plan (Free Text) Assessment: non-oliguric Acute Kidney Injury (N17.9) likely due to sepsis/shock, contrast : Resolved Hypokalemia, hypocalcemia active smoker hyperthyroidism abnormal LFT, cholelithiasis and ? cholecystitis, thyroid storm, acute respi failure s/p intubation septic shock, lactic acidosis coagulopathic, thrombocytopenia Rhabdomyolysis, hypophosphatemia patient recover from acute kidney injury As per primary team
[2018-04-01 13:49] LABS: INR 2.3; PROTHROMBIN TIME 25.4 SECONDS (9.7-12.2)
--- NOTE | 2018-04-01 13:59 | CP.PCM.PN ---
Subjective - Date & Time of Evaluation Date of Evaluation: 04/01/18 Time of Evaluation: 11:45 - Subjective Subjective: Mrs. Jewell was seen and examined today at bedside in the ICU. She continues to be unresponsive, on proporol. I discussed the patient's MRI results, and condition with her family and recommended transfer for continuous EEG monitoring. Objective - Vital Signs/Intake and Output Vital Signs (last 24 hours): Temp Pulse Resp BP Pulse Ox 97.6 F 58 L 20 84/30 L 93 L 04/01/18 11:53 04/01/18 13:20 04/01/18 13:20 04/01/18 13:20 04/01/18 13:00 Intake and Output: 04/01/18 04/01/18 06:59 18:59 Intake Total 1548.8 1069.4 Output Total 490 175 Balance 1058.8 894.4 - Medications Medications: Current Medications Albumin Human (Albumin Human 25% (12.5 Gm/50 Ml)) 12.5 gm IV Q12H [facility] Stop: 04/02/18 06:16 Last Admin: 04/01/18 05:14 Dose: 12.5 gm Ascorbic Acid (Vitamin C 500 Mg Tab) 500 mg PO DAILY [facility] Last Admin: 04/01/18 09:33 Dose: 500 mg Cholestyramine Resin (Prevalite) 4 gm PO Q8H [facility] Last Admin: 04/01/18 09:35 Dose: 4 gm Famotidine (Pepcid) 20 mg PO DAILY [facility] Last Admin: 04/01/18 09:33 Dose: 20 mg Folic Acid (Folic Acid) 1 mg PO DAILY [facility] Last Admin: 04/01/18 09:33 Dose: 1 mg Norepinephrine Bitartrate 4 mg (/ Dextrose) 254 mls @ 15.24 mls/hr IV .[id number] PRN; Protocol; 4 MCG/MIN PRN Reason: TITRATE PER MD ORDER Last Titration: 03/31/18 02:18 Dose: 0 mcg/min, 0 mls/hr Vasopressin 40 units/ Sodium (Chloride) 40 mls @ 0.6 mls/hr IV .Q24H [facility]; 0.01 UNITS/MIN PRN Reason: Protocol Last Titration: 04/01/18 13:28 Dose: 0.04 units/min, 2.4 mls/hr Sodium Chloride (Sodium Chloride 0.9%) 1,000 mls @ 75 mls/hr IV .[id number] [facility] Last Admin: 04/01/18 00:59 Dose: 75 mls/hr Propofol (Diprivan) 1,000 mg in 100 mls @ 1.742 mls/hr IV .Q24H PRN; Protocol; 5 MCG/KG/MIN PRN Reason: TITRATE PER MD ORDER Last Admin: 03/31/18 23:51 Dose: 5 mcg/kg/min, 1.742 mls/hr Levetiracetam 1,500 mg/ (Dextrose) 115 mls @ 420 mls/hr IVPB Q12H [facility] Last Admin: 04/01/18 09:33 Dose: 420 mls/hr Cefepime HCl 1 gm/ Dextrose 50 mls @ 100 mls/hr IVPB Q12H [facility] PRN Reason: Protocol Last Admin: 04/01/18 12:01 Dose: 100 mls/hr Acyclovir 500 mg/ Sodium (Chloride) 100 mls @ 100 mls/hr IV Q12H [facility] PRN Reason: Protocol Last Admin: 04/01/18 10:12 Dose: 100 mls/hr Lacosamide 100 mg/ Sodium (Chloride) 110 mls @ 110 mls/hr IV Q12H [facility] Last Admin: 04/01/18 12:55 Dose: 110 mls/hr Insulin Aspart (Novolog) 0 unit SC Q6H [facility] PRN Reason: Protocol Last Admin: 04/01/18 12:01 Dose: 2 unit Midodrine (Proamatine) 5 mg PO Q8H [facility] Last Admin: 04/01/18 13:44 Dose: 5 mg Multivitamins/Vitamin C (Multi-Delyn Liquid) 5 ml PO DAILY [facility] Last Admin: 04/01/18 09:33 Dose: 5 ml Propranolol HCl (Inderal) 10 mg PO DAILY [facility] Last Admin: 04/01/18 09:32 Dose: 10 mg Propylthiouracil (Propylthiouracil) 150 mg PO TID [facility] Last Admin: 04/01/18 13:44 Dose: 150 mg Thiamine HCl (Vitamin B1 Tab) 200 mg PO Q8H [facility] Last Admin: 04/01/18 09:33 Dose: 200 mg - Labs Labs: 04/01/18 09:57 05/22/18 09:57 PT 25.4 SECONDS (9.7-12.2) H 03/31/18 06:00 INR 2.3 03/31/18 06:00 APTT 44 SECONDS (21-34) H 03/31/18 06:00 - Neurological Exam Additional comments: Neurologically unchanged compared with previous examination. 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 Status: Acute (3) Thyroid storm Status: Acute
[2018-04-01] MEDS ORDERED: DOPamine 400mg/250ml D5W 400 MG/250 ML BAG IV ONE (14:15)
[2018-04-01] MEDS ORDERED: DOPamine 400mg/250ml D5W 400 MG/250 ML BAG IV PRN (14:18)
--- NOTE | 2018-04-01 14:43 | CP.CCUPN ---
"<Blanca Carmen - Last Filed: 04/01/18 15:00> CCU Subjective - Physician Review Subjective (Free Text): Patient seen and examined at bedside. No overnight events reported. Patient currently on Ventilator. GCS currently 4T (Improved). CCU Objective - Vital Signs / Intake & Output Vital Signs (Last 4 hours): Vital Signs Temp Pulse Resp BP Pulse Ox 04/01/18 14:22 84/49 L 04/01/18 14:21 69 13 102/53 L 98 04/01/18 14:17 57 L 19 89/38 L 95 04/01/18 14:10 58 L 20 89/40 L 94 L 04/01/18 14:00 57 L 19 94 L 04/01/18 13:50 58 L 19 84/37 L 93 L 04/01/18 13:20 58 L 20 84/30 L 04/01/18 13:00 61 21 93 L 04/01/18 12:50 63 21 106/45 L 93 L 04/01/18 12:21 64 21 104/46 L 95 04/01/18 12:00 70 21 95 04/01/18 11:53 97.6 F 04/01/18 11:50 64 21 101/51 L 94 L 04/01/18 11:20 64 20 99/49 L 95 04/01/18 11:00 66 20 95 04/01/18 10:51 64 20 108/44 L 94 L Intake and Output (Last 8hrs): Intake & Output 03/31/18 04/01/18 04/01/18 22:59 06:59 14:59 Intake Total 826.1 1069.1 1255.6 Output Total 320 320 215 Balance 506.1 749.1 1040.6 Weight 132 lb 9.6 oz Intake: IV 50.7 26 Intake, IV Amount 506.1 778.4 1189.6 Left Medial Port Internal 14 16 Jugular Left Proximal Port 493.5 750.0 1150 Internal Jugular left distal port y 12.6 14.4 16.8 left proximal port y 6.8 Tube Feeding 140 160 40 Other 180 80 Output: Urine 320 320 215 Urethral (Garcia) 320 320 215 Other: # Bowel Movements 1 1 - Physical Exam Head: Positive for: Atraumatic, Normocephalic Pupils: Positive for: Sluggish Conjunctiva: Positive for: Normal Mouth: Positive for: Moist Mucous Membranes Respiratory/Chest: Positive for: Good Air Exchange, Rales. Negative for: Respiratory Distress, Accessory Muscle Use, Rhonchi Cardiovascular: Positive for: Regular Rate and Rhythm, Normal S1, S2. Negative for: Tachycardic Abdomen: Positive for: Normal Bowel Sounds. Negative for: Distention Neurological: Negative for: GCS=15 (GCS=4T) Skin: Positive for: Warm, Dry Psychiatric: Negative for: Alert, Oriented x 3 - Medications Active Medications: Active Medications Generic Name Dose Route Start Last Admin Trade Name Freq PRN Reason Stop Dose Admin Albumin Human 12.5 gm 03/30/18 18:15 04/01/18 05:14 Albumin Human 25% (12.5 Gm/50 Ml) IV 04/02/18 06:16 12.5 gm Q12H NEREYDA Administration Ascorbic Acid 500 mg 03/30/18 10:00 04/01/18 09:33 Vitamin C 500 Mg Tab PO 500 mg DAILY NEREYDA Administration Cholestyramine Resin 4 gm 03/26/18 08:15 04/01/18 09:35 Prevalite PO 4 gm Q8H NEREYDA Administration Famotidine 20 mg 04/01/18 10:00 04/01/18 09:33 Pepcid PO 20 mg DAILY NEREYDA Administration Folic Acid 1 mg 03/30/18 10:00 04/01/18 09:33 Folic Acid PO 1 mg DAILY NEREYDA Administration Norepinephrine Bitartrate 4 mg 254 mls @ 15.24 mls/hr 03/25/18 17:51 02:18 / Dextrose IV 0 mcg/min .[id number] PRN 0 mls/hr TITRATE PER MD ORDER Titration Protocol 4 MCG/MIN Vasopressin 40 units/ Sodium 40 mls @ 0.6 mls/hr 03/26/18 18:15 04/01/18 13: 28 Chloride IV 0.04 units/min .Q24H NEREYDA 2.4 mls/hr Protocol Titration 0.01 UNITS/MIN Sodium Chloride 1,000 mls @ 75 mls/hr 03/27/18 15:15 04/01/18 00:59 Sodium Chloride 0.9% IV 75 mls/hr .[id number] NEREYDA Administration Propofol 1,000 mg in 100 mls @ 1.742 mls/hr 03/29/18 13:17 03/31/18 23:51 Diprivan IV 5 mcg/kg/min .Q24H PRN 1.742 mls/hr TITRATE PER MD ORDER Administration Protocol 5 MCG/KG/MIN Levetiracetam 1,500 mg/ 115 mls @ 420 mls/hr 03/30/18 21:00 04/01/18 09:33 Dextrose IVPB 420 mls/hr Q12H NEREYDA Administration Cefepime HCl 1 gm/ Dextrose 50 mls @ 100 mls/hr 03/30/18 11:15 04/01/18 12:01 IVPB 100 mls/hr Q12H NEREYDA Administration Protocol Acyclovir 500 mg/ Sodium 100 mls @ 100 mls/hr 03/31/18 21:30 04/01/18 10:12 Chloride IV 100 mls/hr Q12H NEREYDA Administration Protocol Lacosamide 100 mg/ Sodium 110 mls @ 110 mls/hr 04/01/18 13:00 04/01/18 12:55 Chloride IV 110 mls/hr Q12H NEREYDA Administration Dopamine HCl/Dextrose 400 mg in 250 mls @ 4.511 mls/hr 04/01/18 14:18 14:22 Dopamine 400mg/250ml D5w IV 3 mcg/kg/min .Q24H PRN 6.766 mls/hr TITRATE PER MD ORDER Administration Protocol 2 MCG/KG/MIN Insulin Aspart 0 unit 03/27/18 12:00 04/01/18 12:01 Novolog SC 2 unit Q6H NEREYDA Administration Protocol Midodrine 5 mg 03/27/18 14:00 04/01/18 13:44 Proamatine PO 5 mg Q8H NEREYDA Administration Multivitamins/Vitamin C 5 ml 03/30/18 10:00 04/01/18 09:33 Multi-Delyn Liquid PO 5 ml DAILY NEREYDA Administration Propranolol HCl 10 mg 03/26/18 10:00 04/01/18 09:32 Inderal PO 10 mg DAILY NEREYDA Administration Propylthiouracil 150 mg 03/31/18 21:30 04/01/18 13:44 Propylthiouracil PO 150 mg TID NEREYDA Administration Thiamine HCl 200 mg 03/30/18 09:45 04/01/18 09:33 Vitamin B1 Tab PO 200 mg Q8H NEREYDA Administration - Patient Studies Lab Studies: Lab Studies 04/01/18 04/01/18 04/01/18 Range/Units 13:37 11:24 09:57 WBC (4.8-10.8) K/uL RBC (3.80-5.20) Mil/uL Hgb (11.0-16.0) g/dL Hct (34.0-47.0) % MCV (81.0-99.0) fL MCH (27.0-31.0) pg MCHC (33.0-37.0) g/dL RDW (11.5-14.5) % Plt Count (130-400) K/uL MPV (7.2-11.7) fL Neut % (Auto) (50.0-75.0) % Lymph % (Auto) (20.0-40.0) % Bell % (Auto) (0.0-10.0) % Eos % (Auto) (0.0-4.0) % Baso % (Auto) (0.0-2.0) % Neut # (Auto) (1.8-7.0) K/uL Lymph # (Auto) (1.0-4.3) K/uL Bell # (Auto) (0.0-0.8) K/uL Eos # (Auto) (0.0-0.7) K/uL Baso # (Auto) (0.0-0.2) K/uL PT 25.4 H (9.7-12.2) SECONDS INR 2.3 Fibrinogen (200-400) mg/dL Puncture Site pCO2 (35-45) mm/Hg pO2 (80-100) mm/Hg HCO3 (21-28) mmol/L ABG pH (7.35-7.45) ABG Total CO2 (22-28) mmol/L ABG O2 Saturation (95-98) % ABG Base Excess (-2.0-3.0) mmol/L ABG Hemoglobin (11.7-17.4) g/dL ABG Carboxyhemoglobin (0.5-1.5) % POC ABG HHb (Measured) (0.0-5.0) % ABG Methemoglobin (0.0-3.0) % Jake Test A-a O2 Difference mm/Hg Respiratory Index Hgb O2 Saturation (95.0-98.0) % Vent Mode Mechanical Rate FiO2 % Tidal Volume PEEP Sodium 144 (132-148) mmol/L Potassium 4.3 (3.6-5.2) mmol/L Chloride 111 H (98-107) mmol/L Carbon Dioxide 28 (22-30) mmol/L Anion Gap 9 L (10-20) BUN 33 H (7-17) mg/dL Creatinine 0.4 L (0.7-1.2) mg/dL Est GFR ( Amer) > 60 Est GFR (Non-Af Amer) > 60 POC Glucose (mg/dL) 173 H (65-110) mg/dL Random Glucose 134 H (65-105) mg/dL Calcium 7.7 L (8.6-10.4) mg/dl Total Bilirubin 13.4 H (0.2-1.3) mg/dL Direct Bilirubin (0.0-0.4) mg/dL GGT (8-78) U/L AST 167 H D (14-36) U/L ALT 259 H D (9-52) U/L Alkaline Phosphatase 70 (38-126) U/L Ammonia (9-33) umol/L Lactate Dehydrogenase (313-618) U/L Total Protein 5.6 L (6.3-8.3) g/dL Albumin 2.6 L D (3.5-5.0) g/dL Globulin 3.0 (2.2-3.9) gm/dL Albumin/Globulin Ratio 0.9 L (1.0-2.1) Procalcitonin (0.19-0.49) NG/ML Free T4 (0.78-2.19) ng/dL Free T3 pg/mL (2.77-5.27) pg/mL RUSSELL Nuclear Membr Pat (Negative) Smooth Muscle Ab Titer (< 1:20) Titer Anti-Smooth Muscle Ab (Negative) 04/01/18 04/01/18 04/01/18 Range/Units 09:57 07:36 05:55 WBC 10.1 (4.8-10.8) K/uL RBC 3.56 L (3.80-5.20) Mil/uL Hgb 11.4 (11.0-16.0) g/dL Hct 33.9 L (34.0-47.0) % MCV 95.2 (81.0-99.0) fL MCH 32.0 H (27.0-31.0) pg MCHC 33.6 (33.0-37.0) g/dL RDW 15.5 H (11.5-14.5) % Plt Count 94 L (130-400) K/uL MPV 11.2 (7.2-11.7) fL Neut % (Auto) 73.3 (50.0-75.0) % Lymph % (Auto) 12.6 L (20.0-40.0) % Bell % (Auto) 10.6 H (0.0-10.0) % Eos % (Auto) 3.3 (0.0-4.0) % Baso % (Auto) 0.2 (0.0-2.0) % Neut # (Auto) 7.4 H (1.8-7.0) K/uL Lymph # (Auto) 1.3 (1.0-4.3) K/uL Bell # (Auto) 1.1 H (0.0-0.8) K/uL Eos # (Auto) 0.3 (0.0-0.7) K/uL Baso # (Auto) 0.0 (0.0-0.2) K/uL PT (9.7-12.2) SECONDS INR Fibrinogen 77 L (200-400) mg/dL Puncture Site pCO2 (35-45) mm/Hg pO2 (80-100) mm/Hg HCO3 (21-28) mmol/L ABG pH (7.35-7.45) ABG Total CO2 (22-28) mmol/L ABG O2 Saturation (95-98) % ABG Base Excess (-2.0-3.0) mmol/L ABG Hemoglobin (11.7-17.4) g/dL ABG Carboxyhemoglobin (0.5-1.5) % POC ABG HHb (Measured) (0.0-5.0) % ABG Methemoglobin (0.0-3.0) % Jake Test A-a O2 Difference mm/Hg Respiratory Index Hgb O2 Saturation (95.0-98.0) % Vent Mode Mechanical Rate FiO2 % Tidal Volume PEEP Sodium (132-148) mmol/L Potassium (3.6-5.2) mmol/L Chloride (98-107) mmol/L Carbon Dioxide (22-30) mmol/L Anion Gap (10-20) BUN (7-17) mg/dL Creatinine (0.7-1.2) mg/dL Est GFR ( Amer) Est GFR (Non-Af Amer) POC Glucose (mg/dL) (65-110) mg/dL Random Glucose (65-105) mg/dL Calcium (8.6-10.4) mg/dl Total Bilirubin (0.2-1.3) mg/dL Direct Bilirubin (0.0-0.4) mg/dL GGT (8-78) U/L AST (14-36) U/L ALT (9-52) U/L Alkaline Phosphatase (38-126) U/L Ammonia (9-33) umol/L Lactate Dehydrogenase (313-618) U/L Total Protein (6.3-8.3) g/dL Albumin (3.5-5.0) g/dL Globulin (2.2-3.9) gm/dL Albumin/Globulin Ratio (1.0-2.1) Procalcitonin 0.70 H (0.19-0.49) NG/ML Free T4 (0.78-2.19) ng/dL Free T3 pg/mL (2.77-5.27) pg/mL RUSSELL Nuclear Membr Pat (Negative) Smooth Muscle Ab Titer (< 1:20) Titer Anti-Smooth Muscle Ab (Negative) 04/01/18 04/01/18 04/01/18 Range/Units 05:55 05:55 05:55 WBC (4.8-10.8) K/uL RBC (3.80-5.20) Mil/uL Hgb (11.0-16.0) g/dL Hct (34.0-47.0) % MCV (81.0-99.0) fL MCH (27.0-31.0) pg MCHC (33.0-37.0) g/dL RDW (11.5-14.5) % Plt Count (130-400) K/uL MPV (7.2-11.7) fL Neut % (Auto) (50.0-75.0) % Lymph % (Auto) (20.0-40.0) % Bell % (Auto) (0.0-10.0) % Eos % (Auto) (0.0-4.0) % Baso % (Auto) (0.0-2.0) % Neut # (Auto) (1.8-7.0) K/uL Lymph # (Auto) (1.0-4.3) K/uL Bell # (Auto) (0.0-0.8) K/uL Eos # (Auto) (0.0-0.7) K/uL Baso # (Auto) (0.0-0.2) K/uL PT (9.7-12.2) SECONDS INR Fibrinogen (200-400) mg/dL Puncture Site pCO2 (35-45) mm/Hg pO2 (80-100) mm/Hg HCO3 (21-28) mmol/L ABG pH (7.35-7.45) ABG Total CO2 (22-28) mmol/L ABG O2 Saturation (95-98) % ABG Base Excess (-2.0-3.0) mmol/L ABG Hemoglobin (11.7-17.4) g/dL ABG Carboxyhemoglobin (0.5-1.5) % POC ABG HHb (Measured) (0.0-5.0) % ABG Methemoglobin (0.0-3.0) % Jake Test A-a O2 Difference mm/Hg Respiratory Index Hgb O2 Saturation (95.0-98.0) % Vent Mode Mechanical Rate FiO2 % Tidal Volume PEEP Sodium (132-148) mmol/L Potassium (3.6-5.2) mmol/L Chloride (98-107) mmol/L Carbon Dioxide (22-30) mmol/L Anion Gap (10-20) BUN (7-17) mg/dL Creatinine (0.7-1.2) mg/dL Est GFR ( Amer) Est GFR (Non-Af Amer) POC Glucose (mg/dL) (65-110) mg/dL Random Glucose (65-105) mg/dL Calcium (8.6-10.4) mg/dl Total Bilirubin (0.2-1.3) mg/dL Direct Bilirubin 11.4 H (0.0-0.4) mg/dL GGT 41 (8-78) U/L AST (14-36) U/L ALT (9-52) U/L Alkaline Phosphatase (38-126) U/L Ammonia 20 D (9-33) umol/L Lactate Dehydrogenase 893 H (313-618) U/L Total Protein (6.3-8.3) g/dL Albumin (3.5-5.0) g/dL Globulin (2.2-3.9) gm/dL Albumin/Globulin Ratio (1.0-2.1) Procalcitonin (0.19-0.49) NG/ML Free T4 3.08 H (0.78-2.19) ng/dL Free T3 pg/mL 6.87 H (2.77-5.27) pg/mL RUSSELL Nuclear Membr Pat (Negative) Smooth Muscle Ab Titer (< 1:20) Titer Anti-Smooth Muscle Ab (Negative) 04/01/18 04/01/18 03/31/18 Range/Units 05:28 05:07 23:23 WBC (4.8-10.8) K/uL RBC (3.80-5.20) Mil/uL Hgb (11.0-16.0) g/dL Hct (34.0-47.0) % MCV (81.0-99.0) fL MCH (27.0-31.0) pg MCHC (33.0-37.0) g/dL RDW (11.5-14.5) % Plt Count (130-400) K/uL MPV (7.2-11.7) fL Neut % (Auto) (50.0-75.0) % Lymph % (Auto) (20.0-40.0) % Bell % (Auto) (0.0-10.0) % Eos % (Auto) (0.0-4.0) % Baso % (Auto) (0.0-2.0) % Neut # (Auto) (1.8-7.0) K/uL Lymph # (Auto) (1.0-4.3) K/uL Bell # (Auto) (0.0-0.8) K/uL Eos # (Auto) (0.0-0.7) K/uL Baso # (Auto) (0.0-0.2) K/uL PT (9.7-12.2) SECONDS INR Fibrinogen (200-400) mg/dL Puncture Site Rr pCO2 43 (35-45) mm/Hg pO2 91 (80-100) mm/Hg HCO3 28.4 H (21-28) mmol/L ABG pH 7.44 (7.35-7.45) ABG Total CO2 30.5 H (22-28) mmol/L ABG O2 Saturation 99.9 H (95-98) % ABG Base Excess 4.5 H (-2.0-3.0) mmol/L ABG Hemoglobin 11.8 (11.7-17.4) g/dL ABG Carboxyhemoglobin 2.5 H (0.5-1.5) % POC ABG HHb (Measured) 0.1 (0.0-5.0) % ABG Methemoglobin 0.7 (0.0-3.0) % Jake Test Pos A-a O2 Difference 212.0 mm/Hg Respiratory Index 2.3 Hgb O2 Saturation 96.7 (95.0-98.0) % Vent Mode Prvc Mechanical Rate 16 FiO2 50.0 % Tidal Volume 500 PEEP 5 Sodium (132-148) mmol/L Potassium (3.6-5.2) mmol/L Chloride (98-107) mmol/L Carbon Dioxide (22-30) mmol/L Anion Gap (10-20) BUN (7-17) mg/dL Creatinine (0.7-1.2) mg/dL Est GFR ( Amer) Est GFR (Non-Af Amer) POC Glucose (mg/dL) 147 H 207 H (65-110) mg/dL Random Glucose (65-105) mg/dL Calcium (8.6-10.4) mg/dl Total Bilirubin (0.2-1.3) mg/dL Direct Bilirubin (0.0-0.4) mg/dL GGT (8-78) U/L AST (14-36) U/L ALT (9-52) U/L Alkaline Phosphatase (38-126) U/L Ammonia (9-33) umol/L Lactate Dehydrogenase (313-618) U/L Total Protein (6.3-8.3) g/dL Albumin (3.5-5.0) g/dL Globulin (2.2-3.9) gm/dL Albumin/Globulin Ratio (1.0-2.1) Procalcitonin (0.19-0.49) NG/ML Free T4 (0.78-2.19) ng/dL Free T3 pg/mL (2.77-5.27) pg/mL RUSSELL Nuclear Membr Pat (Negative) Smooth Muscle Ab Titer (< 1:20) Titer Anti-Smooth Muscle Ab (Negative) 03/31/18 03/27/18 03/27/18 Range/Units 17:43 11:52 11:52 WBC (4.8-10.8) K/uL RBC (3.80-5.20) Mil/uL Hgb (11.0-16.0) g/dL Hct (34.0-47.0) % MCV (81.0-99.0) fL MCH (27.0-31.0) pg MCHC (33.0-37.0) g/dL RDW (11.5-14.5) % Plt Count (130-400) K/uL MPV (7.2-11.7) fL Neut % (Auto) (50.0-75.0) % Lymph % (Auto) (20.0-40.0) % Bell % (Auto) (0.0-10.0) % Eos % (Auto) (0.0-4.0) % Baso % (Auto) (0.0-2.0) % Neut # (Auto) (1.8-7.0) K/uL Lymph # (Auto) (1.0-4.3) K/uL Bell # (Auto) (0.0-0.8) K/uL Eos # (Auto) (0.0-0.7) K/uL Baso # (Auto) (0.0-0.2) K/uL PT (9.7-12.2) SECONDS INR Fibrinogen (200-400) mg/dL Puncture Site pCO2 (35-45) mm/Hg pO2 (80-100) mm/Hg HCO3 (21-28) mmol/L ABG pH (7.35-7.45) ABG Total CO2 (22-28) mmol/L ABG O2 Saturation (95-98) % ABG Base Excess (-2.0-3.0) mmol/L ABG Hemoglobin (11.7-17.4) g/dL ABG Carboxyhemoglobin (0.5-1.5) % POC ABG HHb (Measured) (0.0-5.0) % ABG Methemoglobin (0.0-3.0) % Jake Test A-a O2 Difference mm/Hg Respiratory Index Hgb O2 Saturation (95.0-98.0) % Vent Mode Mechanical Rate FiO2 % Tidal Volume PEEP Sodium (132-148) mmol/L Potassium (3.6-5.2) mmol/L Chloride (98-107) mmol/L Carbon Dioxide (22-30) mmol/L Anion Gap (10-20) BUN (7-17) mg/dL Creatinine (0.7-1.2) mg/dL Est GFR ( Amer) Est GFR (Non-Af Amer) POC Glucose (mg/dL) 144 H (65-110) mg/dL Random Glucose (65-105) mg/dL Calcium (8.6-10.4) mg/dl Total Bilirubin (0.2-1.3) mg/dL Direct Bilirubin (0.0-0.4) mg/dL GGT (8-78) U/L AST (14-36) U/L ALT (9-52) U/L Alkaline Phosphatase (38-126) U/L Ammonia (9-33) umol/L Lactate Dehydrogenase (313-618) U/L Total Protein (6.3-8.3) g/dL Albumin (3.5-5.0) g/dL Globulin (2.2-3.9) gm/dL Albumin/Globulin Ratio (1.0-2.1) Procalcitonin (0.19-0.49) NG/ML Free T4 (0.78-2.19) ng/dL Free T3 pg/mL (2.77-5.27) pg/mL RUSSELL Nuclear Membr Pat Negative (Negative) Smooth Muscle Ab Titer 1:20 H (< 1:20) Titer Anti-Smooth Muscle Ab Positive H (Negative) Laboratory Results - last 24 hr 03/27/18 03/27/18 03/31/18 11:52 11:52 17:43 WBC RBC Hgb Hct MCV MCH MCHC RDW Plt Count MPV Neut % (Auto) Lymph % (Auto) Bell % (Auto) Eos % (Auto) Baso % (Auto) Neut # (Auto) Lymph # (Auto) Bell # (Auto) Eos # (Auto) Baso # (Auto) PT INR Fibrinogen Puncture Site pCO2 pO2 HCO3 ABG pH ABG Total CO2 ABG O2 Saturation ABG Base Excess ABG Hemoglobin ABG Carboxyhemoglobin POC ABG HHb (Measured) ABG Methemoglobin Jake Test A-a O2 Difference Respiratory Index Hgb O2 Saturation Vent Mode Mechanical Rate FiO2 Tidal Volume PEEP Sodium Potassium Chloride Carbon Dioxide Anion Gap BUN Creatinine Est GFR ( Amer) Est GFR (Non-Af Amer) POC Glucose (mg/dL) 144 H Random Glucose Calcium Total Bilirubin Direct Bilirubin GGT AST ALT Alkaline Phosphatase Ammonia Lactate Dehydrogenase Total Protein Albumin Globulin Albumin/Globulin Ratio Procalcitonin Free T4 Free T3 pg/mL RUSSELL Nuclear Membr Pat Negative Smooth Muscle Ab Titer 1:20 H Anti-Smooth Muscle Ab Positive H 03/31/18 04/01/18 04/01/18 23:23 05:07 05:28 WBC RBC Hgb Hct MCV MCH MCHC RDW Plt Count MPV Neut % (Auto) Lymph % (Auto) Bell % (Auto) Eos % (Auto) Baso % (Auto) Neut # (Auto) Lymph # (Auto) Bell # (Auto) Eos # (Auto) Baso # (Auto) PT INR Fibrinogen Puncture Site Rr pCO2 43 pO2 91 HCO3 28.4 H ABG pH 7.44 ABG Total CO2 30.5 H ABG O2 Saturation 99.9 H ABG Base Excess 4.5 H ABG Hemoglobin 11.8 ABG Carboxyhemoglobin 2.5 H POC ABG HHb (Measured) 0.1 ABG Methemoglobin 0.7 Jake Test Pos A-a O2 Difference 212.0 Respiratory Index 2.3 Hgb O2 Saturation 96.7 Vent Mode Prvc Mechanical Rate 16 FiO2 50.0 Tidal Volume 500 PEEP 5 Sodium Potassium Chloride Carbon Dioxide Anion Gap BUN Creatinine Est GFR ( Amer) Est GFR (Non-Af Amer) POC Glucose (mg/dL) 207 H 147 H Random Glucose Calcium Total Bilirubin Direct Bilirubin GGT AST ALT Alkaline Phosphatase Ammonia Lactate Dehydrogenase Total Protein Albumin Globulin Albumin/Globulin Ratio Procalcitonin Free T4 Free T3 pg/mL RUSSELL Nuclear Membr Pat Smooth Muscle Ab Titer Anti-Smooth Muscle Ab 0504/01/18 04/01/18 05:55 05:55 05:55 WBC RBC Hgb Hct MCV MCH MCHC RDW Plt Count MPV Neut % (Auto) Lymph % (Auto) Bell % (Auto) Eos % (Auto) Baso % (Auto) Neut # (Auto) Lymph # (Auto) Bell # (Auto) Eos # (Auto) Baso # (Auto) PT INR Fibrinogen Puncture Site pCO2 pO2 HCO3 ABG pH ABG Total CO2 ABG O2 Saturation ABG Base Excess ABG Hemoglobin ABG Carboxyhemoglobin POC ABG HHb (Measured) ABG Methemoglobin Jake Test A-a O2 Difference Respiratory Index Hgb O2 Saturation Vent Mode Mechanical Rate FiO2 Tidal Volume PEEP Sodium Potassium Chloride Carbon Dioxide Anion Gap BUN Creatinine Est GFR ( Amer) Est GFR (Non-Af Amer) POC Glucose (mg/dL) Random Glucose Calcium Total Bilirubin Direct Bilirubin 11.4 H GGT 41 AST ALT Alkaline Phosphatase Ammonia 20 D Lactate Dehydrogenase 893 H Total Protein Albumin Globulin Albumin/Globulin Ratio Procalcitonin Free T4 3.08 H Free T3 pg/mL 6.87 H RUSSELL Nuclear Membr Pat Smooth Muscle Ab Titer Anti-Smooth Muscle Ab 04/01/18 04/01/18 04/01/18 05:55 07:36 09:57 WBC 10.1 RBC 3.56 L Hgb 11.4 Hct 33.9 L MCV 95.2 MCH 32.0 H MCHC 33.6 RDW 15.5 H Plt Count 94 L MPV 11.2 Neut % (Auto) 73.3 Lymph % (Auto) 12.6 L Bell % (Auto) 10.6 H Eos % (Auto) 3.3 Baso % (Auto) 0.2 Neut # (Auto) 7.4 H Lymph # (Auto) 1.3 Bell # (Auto) 1.1 H Eos # (Auto) 0.3 Baso # (Auto) 0.0 PT INR Fibrinogen 77 L Puncture Site pCO2 pO2 HCO3 ABG pH ABG Total CO2 ABG O2 Saturation ABG Base Excess ABG Hemoglobin ABG Carboxyhemoglobin POC ABG HHb (Measured) ABG Methemoglobin Jake Test A-a O2 Difference Respiratory Index Hgb O2 Saturation Vent Mode Mechanical Rate FiO2 Tidal Volume PEEP Sodium Potassium Chloride Carbon Dioxide Anion Gap BUN Creatinine Est GFR ( Amer) Est GFR (Non-Af Amer) POC Glucose (mg/dL) Random Glucose Calcium Total Bilirubin Direct Bilirubin GGT AST ALT Alkaline Phosphatase Ammonia Lactate Dehydrogenase Total Protein Albumin Globulin Albumin/Globulin Ratio Procalcitonin 0.70 H Free T4 Free T3 pg/mL RUSSELL Nuclear Membr Pat Smooth Muscle Ab Titer Anti-Smooth Muscle Ab 04/01/18 04/01/18 04/01/18 09:57 11:24 13:37 WBC RBC Hgb Hct MCV MCH MCHC RDW Plt Count MPV Neut % (Auto) Lymph % (Auto) Bell % (Auto) Eos % (Auto) Baso % (Auto) Neut # (Auto) Lymph # (Auto) Bell # (Auto) Eos # (Auto) Baso # (Auto) PT 25.4 H INR 2.3 Fibrinogen Puncture Site pCO2 pO2 HCO3 ABG pH ABG Total CO2 ABG O2 Saturation ABG Base Excess ABG Hemoglobin ABG Carboxyhemoglobin POC ABG HHb (Measured) ABG Methemoglobin Jake Test A-a O2 Difference Respiratory Index Hgb O2 Saturation Vent Mode Mechanical Rate FiO2 Tidal Volume PEEP Sodium 144 Potassium 4.3 Chloride 111 H Carbon Dioxide 28 Anion Gap 9 L BUN 33 H Creatinine 0.4 L Est GFR ( Amer) > 60 Est GFR (Non-Af Amer) > 60 POC Glucose (mg/dL) 173 H Random Glucose 134 H Calcium 7.7 L Total Bilirubin 13.4 H Direct Bilirubin GGT AST 167 H D ALT 259 H D Alkaline Phosphatase 70 Ammonia Lactate Dehydrogenase Total Protein 5.6 L Albumin 2.6 L D Globulin 3.0 Albumin/Globulin Ratio 0.9 L Procalcitonin Free T4 Free T3 pg/mL RUSSELL Nuclear Membr Pat Smooth Muscle Ab Titer Anti-Smooth Muscle Ab Fingerstick Blood Sugar Results: 173 Review of Systems - Review of Systems Systems not reviewed;Unavailable: Intubated Assessment/Plan - Assessment and Plan (Free Text) Assessment: Assessment: 72 year old female with past medical history of recently diagnosed hyperthyroidism is admitted for intractable diarrhea, N/V likely 2/2 gastroenteritis vs. cholecystitis vs. hyperthyroidism. Abdominal US on admission showed cholelithiasis with gallbladder wall thickening and small amount of pericholecystic fluid which could represent acute cholecystitis. HIDA - negative, cystic duct patent. Patient admitted to ICU for respiratory distress likely 2/2 to thyroid storm. Patient intubated in the ICU and started on Levophed and Bicarb drip, later started on vasopressin drip. Currently being treat for Thyroid Storm. Off Sodium Bicarb Drip OFf Levophed Drip EEG/MRI point towards seizures vs HSV encephalitis. Plan: Neuro: A: AMS GCS: 4T Sedation: Propofol Drip Weened today Head/Neck CTA: Negative for any occlusion or significant stenosis. MRI Brain (03/31/18): An Atypical pattern of restricted diffusion is identified affecting primarly gyri of the b/l frontal and temporal lobes with the brainstem and basal ganglia appearing spared. Please See Full Report EEG per Neuro shows CVA vs HSV Encephalitis EEG (03/31): abnormal eeg. prolonged seizure and PLEDS indicate epileptiform activity. Keppra 1500mg Q12H Consider Lumbar Tap. Neuro Recommends Transfer for Continuous EEG monitoring. Began planning for transfer to [facility]. Started Lacosamide 100mg Q12 per Neuro. Cardio A: tachycardia 2/2 to thyroid storm (improving), Hypotension (Improving), Acute Systolic CHF ECHO showed EF of 20% Cont. Propanolol Cont. Vasopressin Drip Cont. Midodrine 5mg PO Q8H Started Dopamine due to cardiomyopathy Cardiology on Consult, Recs appreciated. Pulm: Intubated PRVC 16RR, 40% Fi02, 400 TV, and 5 PEEP. Fi02 increased to 70% due to patient desaturating ABG (03/25) 7.22/32/49/14 ABG (03/26) 7.35/27/179/17.9 ABG (03/28): 7.57/43/76/37.1 ABG (03/31): 7.51/40/82/31.3 ABG (03/31): 7.44/43/91/28.4 Renal A: Metabolic Acidosis, Hypocalcemia, MICHELLE (Resolved) NS @ 75 mls/hr GI A: Elevated LFTs (Improving ), Likely Shock liver vs Medication induced. . Diarrhea, HLD Monitor Pepcid BID Liquid Diet. Stool occult blodd - POSITIVE Consider GI Consult. C Diff Ordered - NEGATIVE Fecal Leukocytes ORdered -NEGATIVE Prevalite Endo: A: Hyperthyroidism, Thyroid Storm, Acute Thyroiditis Free T4 Downtrending, T3 Downtrending. Thyroperoxidase AB - Elevated, Follow up TIS Thyroglobulin Ab <1 Cont. PTU 150mg PO TID Propanolol 10mg Daily Thyroid US: no nodules, cysts, or masses noted Endocrinology Consulted, Recs Appreciated Heme/Onc A: Thrombycytopenia (Improving), Low Fibrinogen Lovenox DC'd Monitor H&H and signs of bleeding. Smooth Muscle Ab- POSITIVE, Anti-Mitochondrial Ab- NEGATIVE, ordered Fibronogen. ID: A: Febrile likely 2/2 to thyroid storm vs UTI, Band Neutrophils, Leukocytosis ( improving), Possible HSV Encephalitis Cont. Cefepime 1gm Q12H, Vanco 1g Q24H Urine Culture Grew Yeast Species. Repeat Urine Culture - NEGATIVE PRN Tylenol F/U Pancultures | Lactate 12.1 from 11.4 yesterday. ProCal Elevated at 4.09 HSV 1 AB - POSITIVE HIV - NEGATIVE HEpatitis Panel - NEGATIVE C. Diff - NEGATIVE Proph Lovenox (Held) and Pepcid Dispo: Began initiating transfer to [facility] for continuous EEG Monitoring Patient seen and discussed with Attending Blanca Carmen, PGY- 1 <Jose Duran - Last Filed: 04/01/18 17:28> CCU Objective - Vital Signs / Intake & Output Vital Signs (Last 4 hours): Vital Signs Temp Pulse Resp BP Pulse Ox 04/01/18 17:09 78 19 104/51 L 92 L 04/01/18 17:00 62 19 92 L 04/01/18 16:09 61 19 116/49 L 92 L 04/01/18 16:00 96.5 F L 82 21 93 L 04/01/18 15:10 90 21 107/50 L 92 L 04/01/18 15:00 90 21 92 L 04/01/18 14:22 84/49 L 04/01/18 14:21 69 13 102/53 L 98 04/01/18 14:17 57 L 19 89/38 L 95 04/01/18 14:10 58 L 20 89/40 L 94 L 04/01/18 14:00 57 L 19 94 L 04/01/18 13:50 58 L 19 84/37 L 93 L Intake and Output (Last 8hrs): Intake & Output 04/01/18 04/01/18 04/01/18 06:59 14:59 22:59 Intake Total 1069.1 1255.6 328.6 Output Total 320 215 80 Balance 749.1 1040.6 248.6 Weight 132 lb 9.6 oz Intake: IV 50.7 26 Intake, IV Amount 778.4 1189.6 308.6 Left Medial Port Internal 14 16 6 Jugular Left Proximal Port 750.0 1150 275 Internal Jugular left distal port y 14.4 16.8 7.2 left proximal port y 6.8 20.4 Tube Feeding 160 40 20 Other 80 Output: Urine 320 215 80 Urethral (Garcia) 320 215 80 Other: # Bowel Movements 1 - Medications Active Medications: Active Medications Generic Name Dose Route Start Last Admin Trade Name Freq PRN Reason Stop Dose Admin Albumin Human 12.5 gm 03/30/18 18:15 04/01/18 17:18 Albumin Human 25% (12.5 Gm/50 Ml) IV 04/02/18 06:16 12.5 gm Q12H NEREYDA Administration Ascorbic Acid 500 mg 03/30/18 10:00 04/01/18 09:33 Vitamin C 500 Mg Tab PO 500 mg DAILY NEREYDA Administration Cholestyramine Resin 4 gm 03/26/18 08:15 04/01/18 16:59 Prevalite PO 4 gm Q8H NEREYDA Administration Famotidine 20 mg 04/01/18 10:00 04/01/18 09:33 Pepcid PO 20 mg DAILY NEREYDA Administration Folic Acid 1 mg 03/30/18 10:00 04/01/18 09:33 Folic Acid PO 1 mg DAILY NEREYDA Administration Norepinephrine Bitartrate 4 mg 254 mls @ 15.24 mls/hr 03/25/18 17:51 02:18 / Dextrose IV 0 mcg/min .[id number] PRN 0 mls/hr TITRATE PER MD ORDER Titration Protocol 4 MCG/MIN Vasopressin 40 units/ Sodium 40 mls @ 0.6 mls/hr 03/26/18 18:15 04/01/18 13: 28 Chloride IV 0.04 units/min .Q24H NEREYDA 2.4 mls/hr Protocol Titration 0.01 UNITS/MIN Sodium Chloride 1,000 mls @ 75 mls/hr 03/27/18 15:15 04/01/18 17:01 Sodium Chloride 0.9% IV 75 mls/hr .[id number] NEREYDA Administration Propofol 1,000 mg in 100 mls @ 1.742 mls/hr 03/29/18 13:17 03/31/18 23:51 Diprivan IV 5 mcg/kg/min .Q24H PRN 1.742 mls/hr TITRATE PER MD ORDER Administration Protocol 5 MCG/KG/MIN Levetiracetam 1,500 mg/ 115 mls @ 420 mls/hr 03/30/18 21:00 04/01/18 09:33 Dextrose IVPB 420 mls/hr Q12H NEREYDA Administration Cefepime HCl 1 gm/ Dextrose 50 mls @ 100 mls/hr 03/30/18 11:15 04/01/18 12:01 IVPB 100 mls/hr Q12H NEREYDA Administration Protocol Acyclovir 500 mg/ Sodium 100 mls @ 100 mls/hr 03/31/18 21:30 04/01/18 10:12 Chloride IV 100 mls/hr Q12H NEREYDA Administration Protocol Lacosamide 100 mg/ Sodium 110 mls @ 110 mls/hr 04/01/18 13:00 04/01/18 12:55 Chloride IV 110 mls/hr Q12H NEREYDA Administration Dopamine HCl/Dextrose 400 mg in 250 mls @ 4.511 mls/hr 04/01/18 14:18 14:22 Dopamine 400mg/250ml D5w IV 3 mcg/kg/min .Q24H PRN 6.766 mls/hr TITRATE PER MD ORDER Administration Protocol 2 MCG/KG/MIN Insulin Aspart 0 unit 03/27/18 12:00 04/01/18 12:01 Novolog SC 2 unit Q6H NEREYDA Administration Protocol Midodrine 5 mg 03/27/18 14:00 04/01/18 13:44 Proamatine PO 5 mg Q8H NEREYDA Administration Multivitamins/Vitamin C 5 ml 03/30/18 10:00 04/01/18 09:33 Multi-Delyn Liquid PO 5 ml DAILY NEREYDA Administration Propranolol HCl 10 mg 03/26/18 10:00 04/01/18 09:32 Inderal PO 10 mg DAILY NEREYDA Administration Propylthiouracil 150 mg 03/31/18 21:30 04/01/18 16:59 Propylthiouracil PO 150 mg TID NEREYDA Administration Thiamine HCl 200 mg 03/30/18 09:45 04/01/18 16:58 Vitamin B1 Tab PO 200 mg Q8H NEREYDA Administration - Patient Studies Lab Studies: Lab Studies 04/01/18 04/01/18 04/01/18 Range/Units 13:37 11:24 09:57 WBC (4.8-10.8) K/uL RBC (3.80-5.20) Mil/uL Hgb (11.0-16.0) g/dL Hct (34.0-47.0) % MCV (81.0-99.0) fL MCH (27.0-31.0) pg MCHC (33.0-37.0) g/dL RDW (11.5-14.5) % Plt Count (130-400) K/uL MPV (7.2-11.7) fL Neut % (Auto) (50.0-75.0) % Lymph % (Auto) (20.0-40.0) % Bell % (Auto) (0.0-10.0) % Eos % (Auto) (0.0-4.0) % Baso % (Auto) (0.0-2.0) % Neut # (Auto) (1.8-7.0) K/uL Lymph # (Auto) (1.0-4.3) K/uL Bell # (Auto) (0.0-0.8) K/uL Eos # (Auto) (0.0-0.7) K/uL Baso # (Auto) (0.0-0.2) K/uL PT 25.4 H (9.7-12.2) SECONDS INR 2.3 Fibrinogen (200-400) mg/dL Puncture Site pCO2 (35-45) mm/Hg pO2 (80-100) mm/Hg HCO3 (21-28) mmol/L ABG pH (7.35-7.45) ABG Total CO2 (22-28) mmol/L ABG O2 Saturation (95-98) % ABG Base Excess (-2.0-3.0) mmol/L ABG Hemoglobin (11.7-17.4) g/dL ABG Carboxyhemoglobin (0.5-1.5) % POC ABG HHb (Measured) (0.0-5.0) % ABG Methemoglobin (0.0-3.0) % Jaek Test A-a O2 Difference mm/Hg Respiratory Index Hgb O2 Saturation (95.0-98.0) % Vent Mode Mechanical Rate FiO2 % Tidal Volume PEEP Sodium 144 (132-148) mmol/L Potassium 4.3 (3.6-5.2) mmol/L Chloride 111 H (98-107) mmol/L Carbon Dioxide 28 (22-30) mmol/L Anion Gap 9 L (10-20) BUN 33 H (7-17) mg/dL Creatinine 0.4 L (0.7-1.2) mg/dL Est GFR ( Amer) > 60 Est GFR (Non-Af Amer) > 60 POC Glucose (mg/dL) 173 H (65-110) mg/dL Random Glucose 134 H (65-105) mg/dL Calcium 7.7 L (8.6-10.4) mg/dl Total Bilirubin 13.4 H (0.2-1.3) mg/dL Direct Bilirubin (0.0-0.4) mg/dL GGT (8-78) U/L AST 167 H D (14-36) U/L ALT 259 H D (9-52) U/L Alkaline Phosphatase 70 (38-126) U/L Ammonia (9-33) umol/L Lactate Dehydrogenase (313-618) U/L Total Protein 5.6 L (6.3-8.3) g/dL Albumin 2.6 L D (3.5-5.0) g/dL Globulin 3.0 (2.2-3.9) gm/dL Albumin/Globulin Ratio 0.9 L (1.0-2.1) Procalcitonin (0.19-0.49) NG/ML Free T4 (0.78-2.19) ng/dL Free T3 pg/mL (2.77-5.27) pg/mL RUSSELL Nuclear Membr Pat (Negative) 04/01/18 04/01/18 04/01/18 Range/Units 09:57 07:36 05:55 WBC 10.1 (4.8-10.8) K/uL RBC 3.56 L (3.80-5.20) Mil/uL Hgb 11.4 (11.0-16.0) g/dL Hct 33.9 L (34.0-47.0) % MCV 95.2 (81.0-99.0) fL MCH 32.0 H (27.0-31.0) pg MCHC 33.6 (33.0-37.0) g/dL RDW 15.5 H (11.5-14.5) % Plt Count 94 L (130-400) K/uL MPV 11.2 (7.2-11.7) fL Neut % (Auto) 73.3 (50.0-75.0) % Lymph % (Auto) 12.6 L (20.0-40.0) % Bell % (Auto) 10.6 H (0.0-10.0) % Eos % (Auto) 3.3 (0.0-4.0) % Baso % (Auto) 0.2 (0.0-2.0) % Neut # (Auto) 7.4 H (1.8-7.0) K/uL Lymph # (Auto) 1.3 (1.0-4.3) K/uL Bell # (Auto) 1.1 H (0.0-0.8) K/uL Eos # (Auto) 0.3 (0.0-0.7) K/uL Baso # (Auto) 0.0 (0.0-0.2) K/uL PT (9.7-12.2) SECONDS INR Fibrinogen 77 L (200-400) mg/dL Puncture Site pCO2 (35-45) mm/Hg pO2 (80-100) mm/Hg HCO3 (21-28) mmol/L ABG pH (7.35-7.45) ABG Total CO2 (22-28) mmol/L ABG O2 Saturation (95-98) % ABG Base Excess (-2.0-3.0) mmol/L ABG Hemoglobin (11.7-17.4) g/dL ABG Carboxyhemoglobin (0.5-1.5) % POC ABG HHb (Measured) (0.0-5.0) % ABG Methemoglobin (0.0-3.0) % Jake Test A-a O2 Difference mm/Hg Respiratory Index Hgb O2 Saturation (95.0-98.0) % Vent Mode Mechanical Rate FiO2 % Tidal Volume PEEP Sodium (132-148) mmol/L Potassium (3.6-5.2) mmol/L Chloride (98-107) mmol/L Carbon Dioxide (22-30) mmol/L Anion Gap (10-20) BUN (7-17) mg/dL Creatinine (0.7-1.2) mg/dL Est GFR ( Amer) Est GFR (Non-Af Amer) POC Glucose (mg/dL) (65-110) mg/dL Random Glucose (65-105) mg/dL Calcium (8.6-10.4) mg/dl Total Bilirubin (0.2-1.3) mg/dL Direct Bilirubin (0.0-0.4) mg/dL GGT (8-78) U/L AST (14-36) U/L ALT (9-52) U/L Alkaline Phosphatase (38-126) U/L Ammonia (9-33) umol/L Lactate Dehydrogenase (313-618) U/L Total Protein (6.3-8.3) g/dL Albumin (3.5-5.0) g/dL Globulin (2.2-3.9) gm/dL Albumin/Globulin Ratio (1.0-2.1) Procalcitonin 0.70 H (0.19-0.49) NG/ML Free T4 (0.78-2.19) ng/dL Free T3 pg/mL (2.77-5.27) pg/mL RUSSLEL Nuclear Membr Pat (Negative) 04/01/18 04/01/18 04/01/18 Range/Units 05:55 05:55 05:55 WBC (4.8-10.8) K/uL RBC (3.80-5.20) Mil/uL Hgb (11.0-16.0) g/dL Hct (34.0-47.0) % MCV (81.0-99.0) fL MCH (27.0-31.0) pg MCHC (33.0-37.0) g/dL RDW (11.5-14.5) % Plt Count (130-400) K/uL MPV (7.2-11.7) fL Neut % (Auto) (50.0-75.0) % Lymph % (Auto) (20.0-40.0) % Bell % (Auto) (0.0-10.0) % Eos % (Auto) (0.0-4.0) % Baso % (Auto) (0.0-2.0) % Neut # (Auto) (1.8-7.0) K/uL Lymph # (Auto) (1.0-4.3) K/uL Bell # (Auto) (0.0-0.8) K/uL Eos # (Auto) (0.0-0.7) K/uL Baso # (Auto) (0.0-0.2) K/uL PT (9.7-12.2) SECONDS INR Fibrinogen (200-400) mg/dL Puncture Site pCO2 (35-45) mm/Hg pO2 (80-100) mm/Hg HCO3 (21-28) mmol/L ABG pH (7.35-7.45) ABG Total CO2 (22-28) mmol/L ABG O2 Saturation (95-98) % ABG Base Excess (-2.0-3.0) mmol/L ABG Hemoglobin (11.7-17.4) g/dL ABG Carboxyhemoglobin (0.5-1.5) % POC ABG HHb (Measured) (0.0-5.0) % ABG Methemoglobin (0.0-3.0) % Jake Test A-a O2 Difference mm/Hg Respiratory Index Hgb O2 Saturation (95.0-98.0) % Vent Mode Mechanical Rate FiO2 % Tidal Volume PEEP Sodium (132-148) mmol/L Potassium (3.6-5.2) mmol/L Chloride (98-107) mmol/L Carbon Dioxide (22-30) mmol/L Anion Gap (10-20) BUN (7-17) mg/dL Creatinine (0.7-1.2) mg/dL Est GFR ( Amer) Est GFR (Non-Af Amer) POC Glucose (mg/dL) (65-110) mg/dL Random Glucose (65-105) mg/dL Calcium (8.6-10.4) mg/dl Total Bilirubin (0.2-1.3) mg/dL Direct Bilirubin 11.4 H (0.0-0.4) mg/dL GGT 41 (8-78) U/L AST (14-36) U/L ALT (9-52) U/L Alkaline Phosphatase (38-126) U/L Ammonia 20 D (9-33) umol/L Lactate Dehydrogenase 893 H (313-618) U/L Total Protein (6.3-8.3) g/dL Albumin (3.5-5.0) g/dL Globulin (2.2-3.9) gm/dL Albumin/Globulin Ratio (1.0-2.1) Procalcitonin (0.19-0.49) NG/ML Free T4 3.08 H (0.78-2.19) ng/dL Free T3 pg/mL 6.87 H (2.77-5.27) pg/mL RUSSELL Nuclear Membr Pat (Negative) 04/01/18 04/01/18 03/31/18 Range/Units 05:28 05:07 23:23 WBC (4.8-10.8) K/uL RBC (3.80-5.20) Mil/uL Hgb (11.0-16.0) g/dL Hct (34.0-47.0) % MCV (81.0-99.0) fL MCH (27.0-31.0) pg MCHC (33.0-37.0) g/dL RDW (11.5-14.5) % Plt Count (130-400) K/uL MPV (7.2-11.7) fL Neut % (Auto) (50.0-75.0) % Lymph % (Auto) (20.0-40.0) % Bell % (Auto) (0.0-10.0) % Eos % (Auto) (0.0-4.0) % Baso % (Auto) (0.0-2.0) % Neut # (Auto) (1.8-7.0) K/uL Lymph # (Auto) (1.0-4.3) K/uL Bell # (Auto) (0.0-0.8) K/uL Eos # (Auto) (0.0-0.7) K/uL Baso # (Auto) (0.0-0.2) K/uL PT (9.7-12.2) SECONDS INR Fibrinogen (200-400) mg/dL Puncture Site Rr pCO2 43 (35-45) mm/Hg pO2 91 (80-100) mm/Hg HCO3 28.4 H (21-28) mmol/L ABG pH 7.44 (7.35-7.45) ABG Total CO2 30.5 H (22-28) mmol/L ABG O2 Saturation 99.9 H (95-98) % ABG Base Excess 4.5 H (-2.0-3.0) mmol/L ABG Hemoglobin 11.8 (11.7-17.4) g/dL ABG Carboxyhemoglobin 2.5 H (0.5-1.5) % POC ABG HHb (Measured) 0.1 (0.0-5.0) % ABG Methemoglobin 0.7 (0.0-3.0) % Jake Test Pos A-a O2 Difference 212.0 mm/Hg Respiratory Index 2.3 Hgb O2 Saturation 96.7 (95.0-98.0) % Vent Mode Prvc Mechanical Rate 16 FiO2 50.0 % Tidal Volume 500 PEEP 5 Sodium (132-148) mmol/L Potassium (3.6-5.2) mmol/L Chloride (98-107) mmol/L Carbon Dioxide (22-30) mmol/L Anion Gap (10-20) BUN (7-17) mg/dL Creatinine (0.7-1.2) mg/dL Est GFR ( Amer) Est GFR (Non-Af Amer) POC Glucose (mg/dL) 147 H 207 H (65-110) mg/dL Random Glucose (65-105) mg/dL Calcium (8.6-10.4) mg/dl Total Bilirubin (0.2-1.3) mg/dL Direct Bilirubin (0.0-0.4) mg/dL GGT (8-78) U/L AST (14-36) U/L ALT (9-52) U/L Alkaline Phosphatase (38-126) U/L Ammonia (9-33) umol/L Lactate Dehydrogenase (313-618) U/L Total Protein (6.3-8.3) g/dL Albumin (3.5-5.0) g/dL Globulin (2.2-3.9) gm/dL Albumin/Globulin Ratio (1.0-2.1) Procalcitonin (0.19-0.49) NG/ML Free T4 (0.78-2.19) ng/dL Free T3 pg/mL (2.77-5.27) pg/mL RUSSELL Nuclear Membr Pat (Negative) 03/31/18 03/27/18 Range/Units 17:43 11:52 WBC (4.8-10.8) K/uL RBC (3.80-5.20) Mil/uL Hgb (11.0-16.0) g/dL Hct (34.0-47.0) % MCV (81.0-99.0) fL MCH (27.0-31.0) pg MCHC (33.0-37.0) g/dL RDW (11.5-14.5) % Plt Count (130-400) K/uL MPV (7.2-11.7) fL Neut % (Auto) (50.0-75.0) % Lymph % (Auto) (20.0-40.0) % Bell % (Auto) (0.0-10.0) % Eos % (Auto) (0.0-4.0) % Baso % (Auto) (0.0-2.0) % Neut # (Auto) (1.8-7.0) K/uL Lymph # (Auto) (1.0-4.3) K/uL Bell # (Auto) (0.0-0.8) K/uL Eos # (Auto) (0.0-0.7) K/uL Baso # (Auto) (0.0-0.2) K/uL PT (9.7-12.2) SECONDS INR Fibrinogen (200-400) mg/dL Puncture Site pCO2 (35-45) mm/Hg pO2 (80-100) mm/Hg HCO3 (21-28) mmol/L ABG pH (7.35-7.45) ABG Total CO2 (22-28) mmol/L ABG O2 Saturation (95-98) % ABG Base Excess (-2.0-3.0) mmol/L ABG Hemoglobin (11.7-17.4) g/dL ABG Carboxyhemoglobin (0.5-1.5) % POC ABG HHb (Measured) (0.0-5.0) % ABG Methemoglobin (0.0-3.0) % Jake Test A-a O2 Difference mm/Hg Respiratory Index Hgb O2 Saturation (95.0-98.0) % Vent Mode Mechanical Rate FiO2 % Tidal Volume PEEP Sodium (132-148) mmol/L Potassium (3.6-5.2) mmol/L Chloride (98-107) mmol/L Carbon Dioxide (22-30) mmol/L Anion Gap (10-20) BUN (7-17) mg/dL Creatinine (0.7-1.2) mg/dL Est GFR ( Amer) Est GFR (Non-Af Amer) POC Glucose (mg/dL) 144 H (65-110) mg/dL Random Glucose (65-105) mg/dL Calcium (8.6-10.4) mg/dl Total Bilirubin (0.2-1.3) mg/dL Direct Bilirubin (0.0-0.4) mg/dL GGT (8-78) U/L AST (14-36) U/L ALT (9-52) U/L Alkaline Phosphatase (38-126) U/L Ammonia (9-33) umol/L Lactate Dehydrogenase (313-618) U/L Total Protein (6.3-8.3) g/dL Albumin (3.5-5.0) g/dL Globulin (2.2-3.9) gm/dL Albumin/Globulin Ratio (1.0-2.1) Procalcitonin (0.19-0.49) NG/ML Free T4 (0.78-2.19) ng/dL Free T3 pg/mL (2.77-5.27) pg/mL RUSSELL Nuclear Membr Pat Negative (Negative) Laboratory Results - last 24 hr 03/27/18 03/31/18 03/31/18 11:52 17:43 23:23 WBC RBC Hgb Hct MCV MCH MCHC RDW Plt Count MPV Neut % (Auto) Lymph % (Auto) Bell % (Auto) Eos % (Auto) Baso % (Auto) Neut # (Auto) Lymph # (Auto) Bell # (Auto) Eos # (Auto) Baso # (Auto) PT INR Fibrinogen Puncture Site pCO2 pO2 HCO3 ABG pH ABG Total CO2 ABG O2 Saturation ABG Base Excess ABG Hemoglobin ABG Carboxyhemoglobin POC ABG HHb (Measured) ABG Methemoglobin Jake Test A-a O2 Difference Respiratory Index Hgb O2 Saturation Vent Mode Mechanical Rate FiO2 Tidal Volume PEEP Sodium Potassium Chloride Carbon Dioxide Anion Gap BUN Creatinine Est GFR ( Amer) Est GFR (Non-Af Amer) POC Glucose (mg/dL) 144 H 207 H Random Glucose Calcium Total Bilirubin Direct Bilirubin GGT AST ALT Alkaline Phosphatase Ammonia Lactate Dehydrogenase Total Protein Albumin Globulin Albumin/Globulin Ratio Procalcitonin Free T4 Free T3 pg/mL RUSSELL Nuclear Membr Pat Negative 04/01/18 04/01/18 04/01/18 05:07 05:28 05:55 WBC RBC Hgb Hct MCV MCH MCHC RDW Plt Count MPV Neut % (Auto) Lymph % (Auto) Bell % (Auto) Eos % (Auto) Baso % (Auto) Neut # (Auto) Lymph # (Auto) Bell # (Auto) Eos # (Auto) Baso # (Auto) PT INR Fibrinogen Puncture Site Rr pCO2 43 pO2 91 HCO3 28.4 H ABG pH 7.44 ABG Total CO2 30.5 H ABG O2 Saturation 99.9 H ABG Base Excess 4.5 H ABG Hemoglobin 11.8 ABG Carboxyhemoglobin 2.5 H POC ABG HHb (Measured) 0.1 ABG Methemoglobin 0.7 Jake Test Pos A-a O2 Difference 212.0 Respiratory Index 2.3 Hgb O2 Saturation 96.7 Vent Mode Prvc Mechanical Rate 16 FiO2 50.0 Tidal Volume 500 PEEP 5 Sodium Potassium Chloride Carbon Dioxide Anion Gap BUN Creatinine Est GFR ( Amer) Est GFR (Non-Af Amer) POC Glucose (mg/dL) 147 H Random Glucose Calcium Total Bilirubin Direct Bilirubin 11.4 H GGT 41 AST ALT Alkaline Phosphatase Ammonia Lactate Dehydrogenase 893 H Total Protein Albumin Globulin Albumin/Globulin Ratio Procalcitonin Free T4 Free T3 pg/mL 6.87 H RUSSELL Nuclear Membr Pat 04/01/18 04/01/18 04/01/18 05:55 05:55 05:55 WBC RBC Hgb Hct MCV MCH MCHC RDW Plt Count MPV Neut % (Auto) Lymph % (Auto) Bell % (Auto) Eos % (Auto) Baso % (Auto) Neut # (Auto) Lymph # (Auto) Bell # (Auto) Eos # (Auto) Baso # (Auto) PT INR Fibrinogen Puncture Site pCO2 pO2 HCO3 ABG pH ABG Total CO2 ABG O2 Saturation ABG Base Excess ABG Hemoglobin ABG Carboxyhemoglobin POC ABG HHb (Measured) ABG Methemoglobin Jake Test A-a O2 Difference Respiratory Index Hgb O2 Saturation Vent Mode Mechanical Rate FiO2 Tidal Volume PEEP Sodium Potassium Chloride Carbon Dioxide Anion Gap BUN Creatinine Est GFR ( Amer) Est GFR (Non-Af Amer) POC Glucose (mg/dL) Random Glucose Calcium Total Bilirubin Direct Bilirubin GGT AST ALT Alkaline Phosphatase Ammonia 20 D Lactate Dehydrogenase Total Protein Albumin Globulin Albumin/Globulin Ratio Procalcitonin 0.70 H Free T4 3.08 H Free T3 pg/mL RUSSELL Nuclear Membr Pat 04/01/18 04/01/18 04/01/18 07:36 09:57 09:57 WBC 10.1 RBC 3.56 L Hgb 11.4 Hct 33.9 L MCV 95.2 MCH 32.0 H MCHC 33.6 RDW 15.5 H Plt Count 94 L MPV 11.2 Neut % (Auto) 73.3 Lymph % (Auto) 12.6 L Bell % (Auto) 10.6 H Eos % (Auto) 3.3 Baso % (Auto) 0.2 Neut # (Auto) 7.4 H Lymph # (Auto) 1.3 Bell # (Auto) 1.1 H Eos # (Auto) 0.3 Baso # (Auto) 0.0 PT INR Fibrinogen 77 L Puncture Site pCO2 pO2 HCO3 ABG pH ABG Total CO2 ABG O2 Saturation ABG Base Excess ABG Hemoglobin ABG Carboxyhemoglobin POC ABG HHb (Measured) ABG Methemoglobin Jake Test A-a O2 Difference Respiratory Index Hgb O2 Saturation Vent Mode Mechanical Rate FiO2 Tidal Volume PEEP Sodium 144 Potassium 4.3 Chloride 111 H Carbon Dioxide 28 Anion Gap 9 L BUN 33 H Creatinine 0.4 L Est GFR ( Amer) > 60 Est GFR (Non-Af Amer) > 60 POC Glucose (mg/dL) Random Glucose 134 H Calcium 7.7 L Total Bilirubin 13.4 H Direct Bilirubin GGT AST 167 H D ALT 259 H D Alkaline Phosphatase 70 Ammonia Lactate Dehydrogenase Total Protein 5.6 L Albumin 2.6 L D Globulin 3.0 Albumin/Globulin Ratio 0.9 L Procalcitonin Free T4 Free T3 pg/mL RUSSELL Nuclear Membr Pat 04/01/18 04/01/18 11:24 13:37 WBC RBC Hgb Hct MCV MCH MCHC RDW Plt Count MPV Neut % (Auto) Lymph % (Auto) Bell % (Auto) Eos % (Auto) Baso % (Auto) Neut # (Auto) Lymph # (Auto) Bell # (Auto) Eos # (Auto) Baso # (Auto) PT 25.4 H INR 2.3 Fibrinogen Puncture Site pCO2 pO2 HCO3 ABG pH ABG Total CO2 ABG O2 Saturation ABG Base Excess ABG Hemoglobin ABG Carboxyhemoglobin POC ABG HHb (Measured) ABG Methemoglobin Jake Test A-a O2 Difference Respiratory Index Hgb O2 Saturation Vent Mode Mechanical Rate FiO2 Tidal Volume PEEP Sodium Potassium Chloride Carbon Dioxide Anion Gap BUN Creatinine Est GFR ( Amer) Est GFR (Non-Af Amer) POC Glucose (mg/dL) 173 H Random Glucose Calcium Total Bilirubin Direct Bilirubin GGT AST ALT Alkaline Phosphatase Ammonia Lactate Dehydrogenase Total Protein Albumin Globulin Albumin/Globulin Ratio Procalcitonin Free T4 Free T3 pg/mL RUSSELL Nuclear Membr Pat Attending/Attestation - Attestation I have personally seen and examined this patient.: Yes I have fully participated in the care of the patient.: Yes I have reviewed all pertinent clinical information: Yes Notes (Text): 04/01/18 17:25 Patient seen and examined in the intensive care unit. Case discussed with house staff in the morning rounds. Case discussed with family on multiple occasions Remains intubated on ventilatory support No change in mental status with positive gag and corneal reflexes Seen by neurology and started on antiepileptic for seizures Being treated for sepsis and viral encephalitis Started on dopamine and on vasopressin for hypotension Good urine output Continue treatment for thyrotoxicosis Seen by GI for elevated hepatic enzymes/bilirubin Cryoprecipitate for low fibrinogen spoke with [place] craftsman for continuous EEG monitoring and transfer"
--- NOTE | 2018-04-01 14:59 | CP.PCM.PN ---
Subjective - Date & Time of Evaluation Date of Evaluation: 04/01/18 Time of Evaluation: 14:50 - Subjective Subjective: Medical Attending Note: Patient send and examined at bedside. Patient seen at bedside with multiple family members. Unable to ROS secondary to clinical condition. Patient intubated , ogt tubed, on vent. Patient hypoxic at 89% at bedside. Patient ordered for portable chest xray. Objective - Vital Signs/Intake and Output Vital Signs (last 24 hours): Temp Pulse Resp BP Pulse Ox 97.6 F 69 13 84/49 L 98 04/01/18 11:53 04/01/18 14:21 04/01/18 14:21 04/01/18 14:22 04/01/18 14:21 Intake and Output: 04/01/18 04/01/18 06:59 18:59 Intake Total 1548.8 1255.6 Output Total 490 215 Balance 1058.8 1040.6 - Medications Medications: Current Medications Albumin Human (Albumin Human 25% (12.5 Gm/50 Ml)) 12.5 gm IV Q12H COUNTS INCLUDE 234 BEDS AT THE [facility] Stop: 04/02/18 06:16 Last Admin: 04/01/18 05:14 Dose: 12.5 gm Ascorbic Acid (Vitamin C 500 Mg Tab) 500 mg PO DAILY COUNTS INCLUDE 234 BEDS AT THE [facility] Last Admin: 04/01/18 09:33 Dose: 500 mg Cholestyramine Resin (Prevalite) 4 gm PO Q8H COUNTS INCLUDE 234 BEDS AT THE [facility] Last Admin: 04/01/18 09:35 Dose: 4 gm Famotidine (Pepcid) 20 mg PO DAILY COUNTS INCLUDE 234 BEDS AT THE [facility] Last Admin: 04/01/18 09:33 Dose: 20 mg Folic Acid (Folic Acid) 1 mg PO DAILY COUNTS INCLUDE 234 BEDS AT THE [facility] Last Admin: 04/01/18 09:33 Dose: 1 mg Norepinephrine Bitartrate 4 mg (/ Dextrose) 254 mls @ 15.24 mls/hr IV .[id number] PRN; Protocol; 4 MCG/MIN PRN Reason: TITRATE PER MD ORDER Last Titration: 03/31/18 02:18 Dose: 0 mcg/min, 0 mls/hr Vasopressin 40 units/ Sodium (Chloride) 40 mls @ 0.6 mls/hr IV .Q24H NEREYDA; 0.01 UNITS/MIN PRN Reason: Protocol Last Titration: 04/01/18 13:28 Dose: 0.04 units/min, 2.4 mls/hr Sodium Chloride (Sodium Chloride 0.9%) 1,000 mls @ 75 mls/hr IV .[id number] COUNTS INCLUDE 234 BEDS AT THE [facility] Last Admin: 04/01/18 00:59 Dose: 75 mls/hr Propofol (Diprivan) 1,000 mg in 100 mls @ 1.742 mls/hr IV .Q24H PRN; Protocol; 5 MCG/KG/MIN PRN Reason: TITRATE PER MD ORDER Last Admin: 03/31/18 23:51 Dose: 5 mcg/kg/min, 1.742 mls/hr Levetiracetam 1,500 mg/ (Dextrose) 115 mls @ 420 mls/hr IVPB Q12H COUNTS INCLUDE 234 BEDS AT THE [facility] Last Admin: 04/01/18 09:33 Dose: 420 mls/hr Cefepime HCl 1 gm/ Dextrose 50 mls @ 100 mls/hr IVPB Q12H COUNTS INCLUDE 234 BEDS AT THE [facility] PRN Reason: Protocol Last Admin: 04/01/18 12:01 Dose: 100 mls/hr Acyclovir 500 mg/ Sodium (Chloride) 100 mls @ 100 mls/hr IV Q12H COUNTS INCLUDE 234 BEDS AT THE [facility] PRN Reason: Protocol Last Admin: 04/01/18 10:12 Dose: 100 mls/hr Lacosamide 100 mg/ Sodium (Chloride) 110 mls @ 110 mls/hr IV Q12H COUNTS INCLUDE 234 BEDS AT THE [facility] Last Admin: 04/01/18 12:55 Dose: 110 mls/hr Dopamine HCl/Dextrose (Dopamine 400mg/250ml D5w) 400 mg in 250 mls @ 4.511 mls/ hr IV .Q24H PRN; Protocol; 2 MCG/KG/MIN PRN Reason: TITRATE PER MD ORDER Last Admin: 04/01/18 14:22 Dose: 3 mcg/kg/min, 6.766 mls/hr Insulin Aspart (Novolog) 0 unit SC Q6H COUNTS INCLUDE 234 BEDS AT THE [facility] PRN Reason: Protocol Last Admin: 04/01/18 12:01 Dose: 2 unit Midodrine (Proamatine) 5 mg PO Q8H COUNTS INCLUDE 234 BEDS AT THE [facility] Last Admin: 04/01/18 13:44 Dose: 5 mg Multivitamins/Vitamin C (Multi-Delyn Liquid) 5 ml PO DAILY COUNTS INCLUDE 234 BEDS AT THE [facility] Last Admin: 04/01/18 09:33 Dose: 5 ml Propranolol HCl (Inderal) 10 mg PO DAILY COUNTS INCLUDE 234 BEDS AT THE [facility] Last Admin: 04/01/18 09:32 Dose: 10 mg Propylthiouracil (Propylthiouracil) 150 mg PO TID COUNTS INCLUDE 234 BEDS AT THE [facility] Last Admin: 04/01/18 13:44 Dose: 150 mg Thiamine HCl (Vitamin B1 Tab) 200 mg PO Q8H COUNTS INCLUDE 234 BEDS AT THE [facility] Last Admin: 04/01/18 09:33 Dose: 200 mg - Labs Labs: 04/01/18 09:57 04/01/18 09:57 PT 25.4 SECONDS (9.7-12.2) H 04/01/18 13:37 INR 2.3 04/01/18 13:37 APTT 44 SECONDS (21-34) H 03/31/18 06:00 - Constitutional Appears: Toxic, In Acute Distress, Older Than Stated Age - Head Exam Head Exam: NORMAL INSPECTION Additional comments: +TLC Left line +OGT intubated - Eye Exam Pupil Exam: absent: Miosis, Mydriatic - ENT Exam ENT Exam: Mucous Membranes Dry - Respiratory Exam Respiratory Exam: Decreased Breath Sounds, Rales, NORMAL BREATHING PATTERN. absent: Wheezes - Cardiovascular Exam Cardiovascular Exam: REGULAR RHYTHM, +S1, +S2 - GI/Abdominal Exam GI & Abdominal Exam: Soft, Normal Bowel Sounds. absent: Distended, Firm, Guarding, Rigid, Tenderness, Rebound - Extremities Exam Extremities Exam: Pedal Edema Additional comments: b/l upper and lower extremities--swelling pitting - Neurological Exam Neurological Exam: Altered Additional comments: unable to retract upper and lower extremities pitting edema bilateral upper and lower extremities - Skin Additional comments: jaundice Assessment and Plan (1) Acute respiratory failure Status: Acute (2) Metabolic encephalopathy Status: Acute (3) Thyroid storm Status: Acute (4) Cardiomyopathy Status: Acute (5) Smoker Status: Chronic (6) Seizure disorder Status: Acute (7) Abdominal pain Status: Acute (8) Transaminitis Status: Acute (9) Swelling Status: Acute (10) Thrombocytopenia Status: Acute (11) Prophylactic measure Status: Acute Attending/Attestation - Attestation I have personally seen and examined this patient.: Yes I have fully participated in the care of the patient.: Yes I have reviewed all pertinent clinical information, including history, physical exam and plan: Yes Notes (Text): Discussed with ICU, patient is pending transfer to [place] pending bed availability; patient will need continuous EEG monitoring given newest EEG for showing PLEDS. Neurology also recommending for continuous EEG. Patient ordered for portable chest xray given hypoxic at 89%-92%. Patient started on second pressor. Liver function is downtrending. Bilirubin is elevated. Procalcitonin has improved. Patient started on second anti-seizure (Vimpat). Hematology (Dr. Ruddy Ferrara) consulted-->low fibrogen, dic, sepsis Assessment and Plan (1) Acute respiratory failure Assessment & Plan: intubated 03/26/18 vent management per ICU weaning per ICU Status: Acute (2) Metabolic encephalopathy Assessment & Plan: Neurology (Dr. Gross/Javid) on board etiologies: thyroid storm; infectious etiology; seizure related? Completed MRI which was inconclusive except ruled out brainstem stroke; varied differential diagnoses on report Anti-seizure medication: Keppra 1500mg IV Q12H Given consideration for HSV encephalitis: Patient started on Acyclovir 500mg IV Q12H (started on 03/27/18), Cefepime 1gm IV Q12 (active since 03/30/18), and Vancomycin 1gm IVPB Q24H (active since 03/27/18) * Blood cultures (03/24/18): no growth after 5 days X2 * Blood cultures (03/25/18): no growth after 5 days X2 * HSV 1 DNA and HSV II DNA: not detected * HIV negative 03/28 EEG: Abnormal, frequent PLEDS 03/27 EEG: abnormal awake and drowsy EEG. periodic Lateralized epilpetiform discharges indicate pathology in left temporal lobe (on DD: HSV encephalitis; post stroke, post icital); spikes ~ seizures Brain MRI w/o contrast (03/31/18): atypical pattern of restricted diffusion is identified affecting primarily gyri of the bilateral frontal and temporal lobes w brainstem and basal ganglia appearing spared. Pattern of ischemia including--- > post seizure,HSV, hypoxic ischemic encephalopathy, CJD, venous sinus thrombosis. No evidence of brainstem infarction on acute or subacute CT Head (03/28/18): no acute intracranial abnormalities. No significant findings to account for clinical presentation. No significant interval change compared to prior examinations (prior head CT 03/26) CT Head and Neck (03/27/18): no occlusion or significant stenosis appreciated within intracranial and neck arterial circulation 03/31: off sedation by ICU; completed MRI; ICU discussed with family regarding findings; will need to f/u neurology regarding LP 04/01: patient is on sedation. newest eeg: showing seizure. patient is needing continuous eeg monitor. started on second anti-seizure medication Status: Acute (3) Thyroid storm Assessment & Plan: Endocrinology (Dr. House) on board-->help appreciated titrate PTU 150mg PO Q8H Propranolol 10mg PO daily Anti-TPO: elevated (upper 70s) Thyroglobulin <1 Thyroglobulin: 1360.2 TSI 401-->likely Graves disease TSH: <0.02 Total T3: elevated 6.42--->1.76 (03/26-->03/29) Free T3: >22.80--->9.14 (03/26-->03/31) Free T4: >6.99-->4.76 (03/26-->03/31) Thyroxine: 6.80 Thyroid US (03/25/18): mildly enlarged right lobe and isthmus are identified with the left lobe upper limits normal size. Overall parenchymal appearance is heterogenous in echotexture without focal mass or cyst is defined Status: Acute (4) Cardiomyopathy Assessment & Plan: Cardiology (Dr. Trevino) on case--> help appreciated Likely due to thyrotoxicois Inderal 10mg PO daily Echocardiogram (03/25/18): left ventricle is mildly dilated, normal left ventricular wall thickness, systolic function is severely impaired. global hypokinesis of the left ventricle. No left ventricle thrombus noted on this study. Mild aortic regurgitation. Mitral regurgitation is mild to moderate moderate tricupsid regurgitation Chest xray (03/31/18): decreased pleural effusions Status: Acute (5) Smoker Status: Chronic (6) Seizure disorder Assessment & Plan: Neurology (Dr. Gross/Dr. Hua) on board-->help appreciated Unclear if seizure is mainfestation of thyroid storm, which is rare or if HSV encephalitis restart profolol 04/01 per ICU pending transfer to [facility] for continous eeg monitoring Keppra 1500mg IV Q12H Given consideration for HSV encephalitis: Patient started on Acyclovir 500mg IV Q12H (started on 03/27/18) * Blood cultures (03/24/18): no growth after 5 days X2 * Blood cultures (03/25/18): no growth after 5 days X2 * HSV 1 DNA and HSV II DNA: not detected * HIV egative 03/28 EEG: Abnormal, frequent PLEDS 03/27 EEG: abnormal awake and drowsy EEG. periodic Lateralized epilpetiform discharges indicate pathology in left temporal lobe (on DD: HSV encephalitis; post stroke, post icital); spikes ~ seizures Brain MRI w/o contrast (03/31/18): atypical pattern of restricted diffusion is identified affecting primarily gyri of the bilateral frontal and temporal lobes w brainstem and basal ganglia appearing spared. Pattern of ischemia including--- > post seizure,HSV, hypoxic ischemic encephalopathy, CJD, venous sinus thrombosis. No evidence of brainstem infarction on acute or subacute pending transfer to [place]; no bed available at this time, for continous EEG for seizure elipticus Status: Acute (7) Abdominal pain Assessment & Plan: Consult initially for acute cholecystitis General surgery (Dr. Cummins) on board-->help appreciated * no acute general surgical intervention; IV abx GI (Dr. Pacheco) on board-->help appreciated 03/25/18 HIDA Scan: normal; cyst duct is patent CT abdomen/pelvis (IV contrast): gallbladder distended, thickwalled w minimal stranding of the pericholecystic fat. further findings per report Gallbladder US (03/25/18): cholelithiasis with gallbladder wall thickening and small amount of pericholecystic fluid. Status: Acute (8) Transaminitis Assessment & Plan: 04/01: improving; INR refractory to Vitamin K. hematology-oncology consulted 03/31: Downtrending Ammonia improved; was on lactulose; d/c secondary to diarrhea today Note: patient is on PTU, Acyclovir, Cefepime, fluonazole Anti-Smooth Ab: 1:20 is positive (unclear if Graves disease affects this) Anti-mitochondiral ab: negative Completed 3 doses of Vitamin K 10mg today GI (Dr. Pacheco's group) on board-->help appreciated Hepatitis panel negative multifactorial: drug induced, acute phase reactant CT abdomen/pelvis (IV contrast): gallbladder distended, thickwalled w minimal stranding of the pericholecystic fat. further findings per report Gallbladder US (03/25/18): cholelithiasis with gallbladder wall thickening and small amount of pericholecystic fluid. Noted liver hypodensity that cannot be further characterized on current examination Status: Acute (9) Swelling Assessment & Plan: low albumin third spacing Receiving IV albumin Status: Acute (10) Thrombocytopenia Assessment & Plan: no LP at this time Status: Acute (11) Prophylactic measure Assessment & Plan: intubated 03/26 TLC 03/26 OGT tube NGT Garcia Angelina Berger (daughter, point of contact): [phone] chemical anticoagulation contraindicated secondary to thrombocytopenia Pepcid 20mg PO day NS 75 cc/hr On sedation 03/31 On 2 pressors Status: Acute
--- NOTE | 2018-04-01 15:05 | CP.PCM.PN ---
Subjective - Date & Time of Evaluation Date of Evaluation: 04/01/18 Time of Evaluation: 03:00 - Subjective Subjective: dictated Objective - Vital Signs/Intake and Output Vital Signs (last 24 hours): Temp Pulse Resp BP Pulse Ox 97.6 F 90 21 84/49 L 92 L 04/01/18 11:53 04/01/18 15:00 04/01/18 15:00 04/01/18 14:22 04/01/18 15:00 Intake and Output: 04/01/18 04/01/18 06:59 18:59 Intake Total 1548.8 1341.8 Output Total 490 240 Balance 1058.8 1101.8 - Medications Medications: Current Medications Albumin Human (Albumin Human 25% (12.5 Gm/50 Ml)) 12.5 gm IV Q12H [facility] Stop: 04/02/18 06:16 Last Admin: 04/01/18 05:14 Dose: 12.5 gm Ascorbic Acid (Vitamin C 500 Mg Tab) 500 mg PO DAILY [facility] Last Admin: 04/01/18 09:33 Dose: 500 mg Cholestyramine Resin (Prevalite) 4 gm PO Q8H [facility] Last Admin: 04/01/18 09:35 Dose: 4 gm Famotidine (Pepcid) 20 mg PO DAILY [facility] Last Admin: 04/01/18 09:33 Dose: 20 mg Folic Acid (Folic Acid) 1 mg PO DAILY [facility] Last Admin: 04/01/18 09:33 Dose: 1 mg Norepinephrine Bitartrate 4 mg (/ Dextrose) 254 mls @ 15.24 mls/hr IV .[id number] PRN; Protocol; 4 MCG/MIN PRN Reason: TITRATE PER MD ORDER Last Titration: 03/31/18 02:18 Dose: 0 mcg/min, 0 mls/hr Vasopressin 40 units/ Sodium (Chloride) 40 mls @ 0.6 mls/hr IV .Q24H NEREYDA; 0.01 UNITS/MIN PRN Reason: Protocol Last Titration: 04/01/18 13:28 Dose: 0.04 units/min, 2.4 mls/hr Sodium Chloride (Sodium Chloride 0.9%) 1,000 mls @ 75 mls/hr IV .[id number] [facility] Last Admin: 04/01/18 00:59 Dose: 75 mls/hr Propofol (Diprivan) 1,000 mg in 100 mls @ 1.742 mls/hr IV .Q24H PRN; Protocol; 5 MCG/KG/MIN PRN Reason: TITRATE PER MD ORDER Last Admin: 03/31/18 23:51 Dose: 5 mcg/kg/min, 1.742 mls/hr Levetiracetam 1,500 mg/ (Dextrose) 115 mls @ 420 mls/hr IVPB Q12H [facility] Last Admin: 04/01/18 09:33 Dose: 420 mls/hr Cefepime HCl 1 gm/ Dextrose 50 mls @ 100 mls/hr IVPB Q12H NEREYDA PRN Reason: Protocol Last Admin: 04/01/18 12:01 Dose: 100 mls/hr Acyclovir 500 mg/ Sodium (Chloride) 100 mls @ 100 mls/hr IV Q12H NEREYDA PRN Reason: Protocol Last Admin: 04/01/18 10:12 Dose: 100 mls/hr Lacosamide 100 mg/ Sodium (Chloride) 110 mls @ 110 mls/hr IV Q12H [facility] Last Admin: 04/01/18 12:55 Dose: 110 mls/hr Dopamine HCl/Dextrose (Dopamine 400mg/250ml D5w) 400 mg in 250 mls @ 4.511 mls/ hr IV .Q24H PRN; Protocol; 2 MCG/KG/MIN PRN Reason: TITRATE PER MD ORDER Last Admin: 04/01/18 14:22 Dose: 3 mcg/kg/min, 6.766 mls/hr Insulin Aspart (Novolog) 0 unit SC Q6H NEREYDA PRN Reason: Protocol Last Admin: 04/01/18 12:01 Dose: 2 unit Midodrine (Proamatine) 5 mg PO Q8H [facility] Last Admin: 04/01/18 13:44 Dose: 5 mg Multivitamins/Vitamin C (Multi-Delyn Liquid) 5 ml PO DAILY [facility] Last Admin: 04/01/18 09:33 Dose: 5 ml Propranolol HCl (Inderal) 10 mg PO DAILY [facility] Last Admin: 04/01/18 09:32 Dose: 10 mg Propylthiouracil (Propylthiouracil) 150 mg PO TID [facility] Last Admin: 04/01/18 13:44 Dose: 150 mg Thiamine HCl (Vitamin B1 Tab) 200 mg PO Q8H [facility] Last Admin: 04/01/18 09:33 Dose: 200 mg - Labs Labs: 04/01/18 09:57 04/01/18 09:57 PT 25.4 SECONDS (9.7-12.2) H 04/01/18 13:37 INR 2.3 04/01/18 13:37 APTT 44 SECONDS (21-34) H 03/31/18 06:00
--- NOTE | 2018-04-01 15:38 | CP.PCM.CON ---
History of Present Illness - History of Present Illness History of Present Illness: 72 year old female with a history of hyperthyroid, presenting with N/V, complicated by thyroid storm secondary to IV contrast administration s/p respiratory failure, AMS, with thrombocytopenia, anemia, and coagulopathy. The patient is currently intubated and I am unable to obtain a history from the patient. Review of her records shows a platelet laura of 67,000. She was found to have a low fibrinogen and is to receive cryopercipitate transfusion. There is no sign of abnormal bleeding or clotting. Past medical, surgical, family, social history cannot be obtained from the patient. Allergies: NKA Review of systems cannot be obtained. Past Patient History - Past Social History Smoking Status: Light Smoker < 10 Cigarettes Daily - CARDIAC Hx Cardia Arrhythmia: Yes - PULMONARY Hx Respiratory Disorders: No - NEUROLOGICAL Hx Neurological Disorder: No - HEENT Hx HEENT Problems: No - RENAL Hx Chronic Kidney Disease: No - ENDOCRINE/METABOLIC Hx Hyperthyroidism: Yes (DX March) - HEMATOLOGICAL/ONCOLOGICAL Hx Blood Disorders: No - INTEGUMENTARY Hx Dermatological Problems: No - MUSCULOSKELETAL/RHEUMATOLOGICAL Hx Falls: Yes (felt dizzy at home and fell) - GASTROINTESTINAL Hx Diarrhea: Yes Hx Nausea: Yes - GENITOURINARY/GYNECOLOGICAL Hx Genitourinary Disorders: No - PSYCHIATRIC Hx Psychophysiologic Disorder: No Hx Substance Use: No - SURGICAL HISTORY Hx Surgeries: No - ANESTHESIA Hx Anesthesia: Yes Hx Anesthesia Reactions: No Hx Malignant Hyperthermia: No Has any member of the family had a problem w/ anesthesia?: No Meds Allergies/Adverse Reactions: Allergies Allergy/AdvReac Type Severity Reaction Status Date / Time No Known Allergies Allergy Unverified 03/24/18 20:31 - Medications Medications: Current Medications Albumin Human (Albumin Human 25% (12.5 Gm/50 Ml)) 12.5 gm IV Q12H [facility] Stop: 04/02/18 06:16 Last Admin: 04/01/18 05:14 Dose: 12.5 gm Ascorbic Acid (Vitamin C 500 Mg Tab) 500 mg PO DAILY [facility] Last Admin: 04/01/18 09:33 Dose: 500 mg Cholestyramine Resin (Prevalite) 4 gm PO Q8H [facility] Last Admin: 04/01/18 09:35 Dose: 4 gm Famotidine (Pepcid) 20 mg PO DAILY [facility] Last Admin: 05/22/18 09:33 Dose: 20 mg Folic Acid (Folic Acid) 1 mg PO DAILY [facility] Last Admin: 04/01/18 09:33 Dose: 1 mg Norepinephrine Bitartrate 4 mg (/ Dextrose) 254 mls @ 15.24 mls/hr IV .[id number] PRN; Protocol; 4 MCG/MIN PRN Reason: TITRATE PER MD ORDER Last Titration: 03/31/18 02:18 Dose: 0 mcg/min, 0 mls/hr Vasopressin 40 units/ Sodium (Chloride) 40 mls @ 0.6 mls/hr IV .Q24H [facility]; 0.01 UNITS/MIN PRN Reason: Protocol Last Titration: 04/01/18 13:28 Dose: 0.04 units/min, 2.4 mls/hr Sodium Chloride (Sodium Chloride 0.9%) 1,000 mls @ 75 mls/hr IV .[id number] [facility] Last Admin: 04/01/18 00:59 Dose: 75 mls/hr Propofol (Diprivan) 1,000 mg in 100 mls @ 1.742 mls/hr IV .Q24H PRN; Protocol; 5 MCG/KG/MIN PRN Reason: TITRATE PER MD ORDER Last Admin: 03/31/18 23:51 Dose: 5 mcg/kg/min, 1.742 mls/hr Levetiracetam 1,500 mg/ (Dextrose) 115 mls @ 420 mls/hr IVPB Q12H [facility] Last Admin: 04/01/18 09:33 Dose: 420 mls/hr Cefepime HCl 1 gm/ Dextrose 50 mls @ 100 mls/hr IVPB Q12H [facility] PRN Reason: Protocol Last Admin: 04/01/18 12:01 Dose: 100 mls/hr Acyclovir 500 mg/ Sodium (Chloride) 100 mls @ 100 mls/hr IV Q12H [facility] PRN Reason: Protocol Last Admin: 04/01/18 10:12 Dose: 100 mls/hr Lacosamide 100 mg/ Sodium (Chloride) 110 mls @ 110 mls/hr IV Q12H [facility] Last Admin: 04/01/18 12:55 Dose: 110 mls/hr Dopamine HCl/Dextrose (Dopamine 400mg/250ml D5w) 400 mg in 250 mls @ 4.511 mls/ hr IV .Q24H PRN; Protocol; 2 MCG/KG/MIN PRN Reason: TITRATE PER MD ORDER Last Admin: 04/01/18 14:22 Dose: 3 mcg/kg/min, 6.766 mls/hr Insulin Aspart (Novolog) 0 unit SC Q6H [facility] PRN Reason: Protocol Last Admin: 04/01/18 12:01 Dose: 2 unit Midodrine (Proamatine) 5 mg PO Q8H [facility] Last Admin: 04/01/18 13:44 Dose: 5 mg Multivitamins/Vitamin C (Multi-Delyn Liquid) 5 ml PO DAILY [facility] Last Admin: 04/01/18 09:33 Dose: 5 ml Propranolol HCl (Inderal) 10 mg PO DAILY [facility] Last Admin: 04/01/18 09:32 Dose: 10 mg Propylthiouracil (Propylthiouracil) 150 mg PO TID [facility] Last Admin: 04/01/18 13:44 Dose: 150 mg Thiamine HCl (Vitamin B1 Tab) 200 mg PO Q8H [facility] Last Admin: 04/01/18 09:33 Dose: 200 mg Physical Exam - Head Exam Head Exam: ATRAUMATIC - Eye Exam Eye Exam: Normal appearance - ENT Exam ENT Exam: Mucous Membranes Dry - Respiratory Exam Respiratory Exam: NORMAL BREATHING PATTERN - Cardiovascular Exam Cardiovascular Exam: +S1, +S2 - GI/Abdominal Exam GI & Abdominal Exam: Normal Bowel Sounds Results - Vital Signs Recent Vital Signs: Last Vital Signs Temp 97.6 F 04/01/18 11:53 Pulse 90 04/01/18 15:00 Resp 21 04/01/18 15:00 BP 84/49 L 04/01/18 14:22 Pulse Ox 92 L 04/01/18 15:00 - Labs Result Diagrams: 04/01/18 09:57 04/01/18 09:57 Labs: Laboratory Results - last 24 hr 03/27/18 03/27/18 03/31/18 11:52 11:52 17:43 WBC RBC Hgb Hct MCV MCH MCHC RDW Plt Count MPV Neut % (Auto) Lymph % (Auto) Kaufman % (Auto) Eos % (Auto) Baso % (Auto) Neut # (Auto) Lymph # (Auto) Kaufman # (Auto) Eos # (Auto) Baso # (Auto) PT INR Fibrinogen Puncture Site pCO2 pO2 HCO3 ABG pH ABG Total CO2 ABG O2 Saturation ABG Base Excess ABG Hemoglobin ABG Carboxyhemoglobin POC ABG HHb (Measured) ABG Methemoglobin Jake Test A-a O2 Difference Respiratory Index Hgb O2 Saturation Vent Mode Mechanical Rate FiO2 Tidal Volume PEEP Sodium Potassium Chloride Carbon Dioxide Anion Gap BUN Creatinine Est GFR ( Amer) Est GFR (Non-Af Amer) POC Glucose (mg/dL) 144 H Random Glucose Calcium Total Bilirubin Direct Bilirubin GGT AST ALT Alkaline Phosphatase Ammonia Lactate Dehydrogenase Total Protein Albumin Globulin Albumin/Globulin Ratio Procalcitonin Free T4 Free T3 pg/mL RUSSELL Nuclear Membr Pat Negative Smooth Muscle Ab Titer 1:20 H 03/31/18 04/01/18 04/01/18 23:23 05:07 05:28 WBC RBC Hgb Hct MCV MCH MCHC RDW Plt Count MPV Neut % (Auto) Lymph % (Auto) Kaufman % (Auto) Eos % (Auto) Baso % (Auto) Neut # (Auto) Lymph # (Auto) Kaufman # (Auto) Eos # (Auto) Baso # (Auto) PT INR Fibrinogen Puncture Site Rr pCO2 43 pO2 91 HCO3 28.4 H ABG pH 7.44 ABG Total CO2 30.5 H ABG O2 Saturation 99.9 H ABG Base Excess 4.5 H ABG Hemoglobin 11.8 ABG Carboxyhemoglobin 2.5 H POC ABG HHb (Measured) 0.1 ABG Methemoglobin 0.7 Jake Test Pos A-a O2 Difference 212.0 Respiratory Index 2.3 Hgb O2 Saturation 96.7 Vent Mode Prvc Mechanical Rate 16 FiO2 50.0 Tidal Volume 500 PEEP 5 Sodium Potassium Chloride Carbon Dioxide Anion Gap BUN Creatinine Est GFR ( Amer) Est GFR (Non-Af Amer) POC Glucose (mg/dL) 207 H 147 H Random Glucose Calcium Total Bilirubin Direct Bilirubin GGT AST ALT Alkaline Phosphatase Ammonia Lactate Dehydrogenase Total Protein Albumin Globulin Albumin/Globulin Ratio Procalcitonin Free T4 Free T3 pg/mL RUSSELL Nuclear Membr Pat Smooth Muscle Ab Titer 04/01/18 04/01/18 04/01/18 05:55 05:55 05:55 WBC RBC Hgb Hct MCV MCH MCHC RDW Plt Count MPV Neut % (Auto) Lymph % (Auto) Kaufman % (Auto) Eos % (Auto) Baso % (Auto) Neut # (Auto) Lymph # (Auto) Kaufman # (Auto) Eos # (Auto) Baso # (Auto) PT INR Fibrinogen Puncture Site pCO2 pO2 HCO3 ABG pH ABG Total CO2 ABG O2 Saturation ABG Base Excess ABG Hemoglobin ABG Carboxyhemoglobin POC ABG HHb (Measured) ABG Methemoglobin Jake Test A-a O2 Difference Respiratory Index Hgb O2 Saturation Vent Mode Mechanical Rate FiO2 Tidal Volume PEEP Sodium Potassium Chloride Carbon Dioxide Anion Gap BUN Creatinine Est GFR ( Amer) Est GFR (Non-Af Amer) POC Glucose (mg/dL) Random Glucose Calcium Total Bilirubin Direct Bilirubin 11.4 H GGT 41 AST ALT Alkaline Phosphatase Ammonia 20 D Lactate Dehydrogenase 893 H Total Protein Albumin Globulin Albumin/Globulin Ratio Procalcitonin Free T4 3.08 H Free T3 pg/mL 6.87 H RUSSELL Nuclear Membr Pat Smooth Muscle Ab Titer 04/01/18 04/01/18 04/01/18 05:55 07:36 09:57 WBC 10.1 RBC 3.56 L Hgb 11.4 Hct 33.9 L MCV 95.2 MCH 32.0 H MCHC 33.6 RDW 15.5 H Plt Count 94 L MPV 11.2 Neut % (Auto) 73.3 Lymph % (Auto) 12.6 L Kaufman % (Auto) 10.6 H Eos % (Auto) 3.3 Baso % (Auto) 0.2 Neut # (Auto) 7.4 H Lymph # (Auto) 1.3 Kaufman # (Auto) 1.1 H Eos # (Auto) 0.3 Baso # (Auto) 0.0 PT INR Fibrinogen 77 L Puncture Site pCO2 pO2 HCO3 ABG pH ABG Total CO2 ABG O2 Saturation ABG Base Excess ABG Hemoglobin ABG Carboxyhemoglobin POC ABG HHb (Measured) ABG Methemoglobin Jake Test A-a O2 Difference Respiratory Index Hgb O2 Saturation Vent Mode Mechanical Rate FiO2 Tidal Volume PEEP Sodium Potassium Chloride Carbon Dioxide Anion Gap BUN Creatinine Est GFR ( Amer) Est GFR (Non-Af Amer) POC Glucose (mg/dL) Random Glucose Calcium Total Bilirubin Direct Bilirubin GGT AST ALT Alkaline Phosphatase Ammonia Lactate Dehydrogenase Total Protein Albumin Globulin Albumin/Globulin Ratio Procalcitonin 0.70 H Free T4 Free T3 pg/mL RUSSELL Nuclear Membr Pat Smooth Muscle Ab Titer 04/01/18 04/01/18 04/01/18 09:57 11:24 13:37 WBC RBC Hgb Hct MCV MCH MCHC RDW Plt Count MPV Neut % (Auto) Lymph % (Auto) Kaufman % (Auto) Eos % (Auto) Baso % (Auto) Neut # (Auto) Lymph # (Auto) Kaufman # (Auto) Eos # (Auto) Baso # (Auto) PT 25.4 H INR 2.3 Fibrinogen Puncture Site pCO2 pO2 HCO3 ABG pH ABG Total CO2 ABG O2 Saturation ABG Base Excess ABG Hemoglobin ABG Carboxyhemoglobin POC ABG HHb (Measured) ABG Methemoglobin Jake Test A-a O2 Difference Respiratory Index Hgb O2 Saturation Vent Mode Mechanical Rate FiO2 Tidal Volume PEEP Sodium 144 Potassium 4.3 Chloride 111 H Carbon Dioxide 28 Anion Gap 9 L BUN 33 H Creatinine 0.4 L Est GFR ( Amer) > 60 Est GFR (Non-Af Amer) > 60 POC Glucose (mg/dL) 173 H Random Glucose 134 H Calcium 7.7 L Total Bilirubin 13.4 H Direct Bilirubin GGT AST 167 H D ALT 259 H D Alkaline Phosphatase 70 Ammonia Lactate Dehydrogenase Total Protein 5.6 L Albumin 2.6 L D Globulin 3.0 Albumin/Globulin Ratio 0.9 L Procalcitonin Free T4 Free T3 pg/mL RUSSELL Nuclear Membr Pat Smooth Muscle Ab Titer Assessment & Plan (1) DIC (disseminated intravascular coagulation) Assessment and Plan: low fibrinogen, thrombocytopenia likely secondary to acute illness for cryopercipitate transfusion repeat fibrinogen in AM Status: Acute (2) Coagulopathy Assessment and Plan: DIC may have nutritionalcomponent Status: Acute (3) Thrombocytopenia Assessment and Plan: secondary to DIC for cryopercipitate transfusion Status: Acute (4) Anemia Assessment and Plan: will check retic count, b12, folate, ferritin, FOBT to further characterize Thank you for this interesting consult. Status: Acute
[2018-04-01 16:09] VITALS: TEMP 96.5
--- NOTE | 2018-04-01 16:11 | RAD ---
HISTORY: Hypoxia COMPARISON: 04/01/2018 FINDINGS: LUNGS: Opacity at both lung bases possibly reflecting small bilateral dependent pleural effusions. Left basilar opacity diminished compared to prior examination. Rule out basilar infiltrates. PLEURA: As above. No pneumothorax. CARDIOVASCULAR: ET tube and left IJ central venous catheter unchanged. Nasogastric tube unchanged. OSSEOUS STRUCTURES: No significant abnormalities. VISUALIZED UPPER ABDOMEN: Normal. OTHER FINDINGS: None. IMPRESSION: Possible small dependent bilateral pleural effusion. Rule out basilar infiltrates. Lines and tubes unchanged.
--- NOTE | 2018-04-01 16:57 | PN ---
DATE: LOCATION: ICU, Room 17. SUBJECTIVE: This is a 72-year-old female with recent overt thyrotoxicosis and is now being followed closely for metabolic management. She also had recent acute respiratory failure, and remains intubated and sedated at this time. She has been taken off IV pressors as noted. Her latest chemistries showed BUN of 33, sodium 144, potassium 4.3, chloride 111, CO2 28, glucose 134, and creatinine 0.4. The glucose levels have ranged from 147 to 173 mg/dL. The liver transaminases have declined and improved as noted. Her latest thyroid studies showed free T3 of 6.87, with a free T4 of 3.08, and a total T4 of 6.80, and TSH of less than 0.02. As discussed with Dr. Mignon Sullivan yesterday, we would resume a much lower dosing of the PTU given as 150 mg p.o. t.i.d. as ordered. We will obtain serial chemistries and supplement accordingly as noted. We will follow up with you. Ani House MD
[2018-04-01 17:22] VITALS: O2SAT 92
--- NOTE | 2018-04-01 17:42 | US ---
PROCEDURE: Abdominal ultrasound, limited. HISTORY: Elevated lfts,eval portal or hepatic vein flow COMPARISON: None available. TECHNIQUE: Standard protocol for this study/examination. FINDINGS: Hepato pedal blood flow identified. No evidence of portal vein thrombosis. No collaterals are identified. Patent hepatic veins as visualized. No abnormalities identified in visualize portions of the inferior vena cava. Incidental finding(s): Cholelithiasis, gallbladder wall thickening. The dominant stone identified on the prior study is readily apparent on the current examination. This measures 2.6 x 2.7 cm. Low volume and incompletely visualized ascites IMPRESSION: Patent portal veins, hepatic veins and inferior vena cava is visualized. Additional benign and/or incidental findings described above.
[2018-04-01 18:15] VITALS: PULSE 79
--- NOTE | 2018-04-01 19:10 | CP.PCM.DIS ---
<Blanca Carmen - Last Filed: 04/01/18 20:01> Provider - Provider Date of Admission: 03/25/18 11:22 Attending physician: Mignon Sullivan DO Consults: General Surgery - Dr. Cummins Cardiology - Dr. Trevino Endocrinology - Dr. House GI - Dr. Hall Hematology - Dr. Ferrara ID - Dr. Avendano Neurology - Dr. Hua Pulneil - Dr. Duran Time Spent in preparation of Discharge (in minutes): 50 Hospital Course - Lab Results Lab Results: Micro Results 03/30/18 06:31 Urine,Garcia Urine Culture - Final No Growth (<1,000 CFU/ML) 03/25/18 16:00 Blood-Venous Blood Culture - Final NO GROWTH AFTER 5 DAYS 03/25/18 16:00 Blood-Venous Gram Stain - Final TEST NOT PERFORMED 03/25/18 16:30 Blood-Venous Blood Culture - Final NO GROWTH AFTER 5 DAYS 03/25/18 16:30 Blood-Venous Gram Stain - Final TEST NOT PERFORMED 03/24/18 20:46 Blood Blood Culture - Final NO GROWTH AFTER 5 DAYS 03/24/18 20:46 Blood Gram Stain - Final TEST NOT PERFORMED 03/24/18 20:46 Blood Blood Culture - Final NO GROWTH AFTER 5 DAYS 03/24/18 20:46 Blood Gram Stain - Final TEST NOT PERFORMED 03/27/18 13:50 Trachasp Gram Stain - Final 03/27/18 13:50 Trachasp Sputum Culture - Final Yeast Species 03/27/18 13:40 Urine,Garcia Urine Culture - Final Yeast Species 03/25/18 08:15 Stool Stool Culture - Final NO SALMONELLA, SHIGELLA OR CAMPYLOBACTER ISOLATED. 03/25/18 16:34 Urine,Catheterized Urine Culture - Final Yeast Species 03/25/18 05:57 Nose MRSA Culture (Admit) - Final MRSA NOT DETECTED Most Recent Lab Values WBC 10.1 K/uL (4.8-10.8) 04/01/18 09:57 RBC 3.56 Mil/uL (3.80-5.20) L 04/01/18 09:57 Hgb 11.4 g/dL (11.0-16.0) 04/01/18 09:57 Hct 33.9 % (34.0-47.0) L 04/01/18 09:57 MCV 95.2 fL (81.0-99.0) 04/01/18 09:57 MCH 32.0 pg (27.0-31.0) H 04/01/18 09:57 MCHC 33.6 g/dL (33.0-37.0) 04/01/18 09:57 RDW 15.5 % (11.5-14.5) H 04/01/18 09:57 Plt Count 94 K/uL (130-400) L 04/01/18 09:57 MPV 11.2 fL (7.2-11.7) 04/01/18 09:57 Neut % (Auto) 73.3 % (50.0-75.0) 04/01/18 09:57 Lymph % (Auto) 12.6 % (20.0-40.0) L 04/01/18 09:57 Greene % (Auto) 10.6 % (0.0-10.0) H 04/01/18 09:57 Eos % (Auto) 3.3 % (0.0-4.0) 04/01/18 09:57 Baso % (Auto) 0.2 % (0.0-2.0) 04/01/18 09:57 Neut # (Auto) 7.4 K/uL (1.8-7.0) H 04/01/18 09:57 Lymph # (Auto) 1.3 K/uL (1.0-4.3) 04/01/18 09:57 Greene # (Auto) 1.1 K/uL (0.0-0.8) H 04/01/18 09:57 Eos # (Auto) 0.3 K/uL (0.0-0.7) 04/01/18 09:57 Baso # (Auto) 0.0 K/uL (0.0-0.2) 04/01/18 09:57 Neutrophils % (Manual) 77 % (50-75) H 03/28/18 05:59 Band Neutrophils % 16 % (0-2) H* 03/28/18 05:59 Lymphocytes % (Manual) 5 % (20-40) L 03/28/18 05:59 Reactive Lymphs % 1 % (0-0) H 03/27/18 06:29 Monocytes % (Manual) 2 % (0-10) 03/28/18 05:59 Differential Comment 03/31/18 06:00 Toxic Granulation Present 03/26/18 06:13 Platelet Estimate Decreased (NORMAL) L 03/28/18 05:59 Large Platelets Present 03/28/18 05:59 RBC Morphology Normal 03/25/18 20:42 Polychromasia Slight 03/28/18 05:59 Hypochromasia (manual) Slight 03/28/18 05:59 Poikilocytosis (manual Slight 03/27/18 06:29 Anisocytosis (manual) Slight 03/28/18 05:59 Ovalocytes Slight 03/27/18 06:29 Jeff Cells Slight 03/26/18 06:13 PT 25.4 SECONDS (9.7-12.2) H 04/01/18 13:37 INR 2.3 04/01/18 13:37 APTT 44 SECONDS (21-34) H 03/31/18 06:00 Fibrinogen 77 mg/dL (200-400) L 04/01/18 07:36 Puncture Site Rr 04/01/18 05:28 pCO2 43 mm/Hg (35-45) 04/01/18 05:28 pO2 91 mm/Hg (80-100) 04/01/18 05:28 HCO3 28.4 mmol/L (21-28) H 04/01/18 05:28 ABG pH 7.44 (7.35-7.45) 04/01/18 05:28 ABG Total CO2 30.5 mmol/L (22-28) H 04/01/18 05:28 ABG O2 Saturation 99.9 % (95-98) H 04/01/18 05:28 ABG Base Excess 4.5 mmol/L (-2.0-3.0) H 04/01/18 05:28 ABG Hemoglobin 11.8 g/dL (11.7-17.4) 04/01/18 05:28 ABG Carboxyhemoglobin 2.5 % (0.5-1.5) H 04/01/18 05:28 POC ABG HHb (Measured) 0.1 % (0.0-5.0) 04/01/18 05:28 ABG Methemoglobin 0.7 % (0.0-3.0) 04/01/18 05:28 Jake Test Pos 04/01/18 05:28 ABG Potassium 4.0 mmol/L (3.6-5.2) 03/31/18 04:25 A-a O2 Difference 212.0 mm/Hg 04/01/18 05:28 Respiratory Index 2.3 04/01/18 05:28 Hgb O2 Saturation 96.7 % (95.0-98.0) 04/01/18 05:28 Sodium 142.0 mmol/l (132-148) 03/31/18 04:25 Chloride 109.0 mmol/L (98-107) H 03/31/18 04:25 Glucose 140 mg/dl (65-105) H 03/31/18 04:25 Lactate 1.3 mmol/L (0.7-2.1) 03/31/18 04:25 Vent Mode Prvc 04/01/18 05:28 Mechanical Rate 16 04/01/18 05:28 FiO2 50.0 % 04/01/18 05:28 Tidal Volume 500 04/01/18 05:28 PEEP 5 04/01/18 05:28 Crit Value Called To Nirmala karimi/rn 03/26/18 04:25 Crit Value Called By Phil monge/rt 03/26/18 04:25 Crit Value Read Back Y 03/26/18 04:25 Blood Gas Notified Time 445 03/26/18 04:25 Sodium 144 mmol/L (132-148) 04/01/18 09:57 Potassium 4.3 mmol/L (3.6-5.2) 04/01/18 09:57 Chloride 111 mmol/L (98-107) H 04/01/18 09:57 Carbon Dioxide 28 mmol/L (22-30) 04/01/18 09:57 Anion Gap 9 (10-20) L 04/01/18 09:57 BUN 33 mg/dL (7-17) H 04/01/18 09:57 Creatinine 0.4 mg/dL (0.7-1.2) L 04/01/18 09:57 Est GFR ( Amer) > 60 04/01/18 09:57 Est GFR (Non-Af Amer) > 60 04/01/18 09:57 POC Glucose (mg/dL) 146 mg/dL (65-110) H 04/01/18 17:44 Random Glucose 134 mg/dL (65-105) H 04/01/18 09:57 Hemoglobin A1c 5.5 % (4.2-6.5) 03/28/18 07:08 Lactic Acid 1.7 mmol/L (0.7-2.1) 03/29/18 15:29 Calcium 7.7 mg/dl (8.6-10.4) L 04/01/18 09:57 Phosphorus 2.5 mg/dL (2.5-4.5) 03/31/18 06:00 Magnesium 2.0 mg/dL (1.6-2.3) 03/31/18 06:00 Total Bilirubin 13.4 mg/dL (0.2-1.3) H 04/01/18 09:57 Direct Bilirubin 11.4 mg/dL (0.0-0.4) H 04/01/18 05:55 GGT 41 U/L (8-78) 04/01/18 05:55 AST 167 U/L (14-36) H D 04/01/18 09:57 ALT 259 U/L (9-52) H D 04/01/18 09:57 Alkaline Phosphatase 70 U/L (38-126) 04/01/18 09:57 Ammonia 20 umol/L (9-33) D 04/01/18 05:55 Lactate Dehydrogenase 893 U/L (313-618) H 04/01/18 05:55 Total Creatine Kinase 431 U/L (30-135) H 03/28/18 08:32 CK-MB (Mass) 21.2 ng/mL (0.0-3.38) H 03/26/18 03:16 Troponin I 0.1160 ng/mL (0.00-0.120) 03/26/18 03:16 Total Protein 5.6 g/dL (6.3-8.3) L 04/01/18 09:57 Albumin 2.6 g/dL (3.5-5.0) L D 04/01/18 09:57 Globulin 3.0 gm/dL (2.2-3.9) 04/01/18 09:57 Albumin/Globulin Ratio 0.9 (1.0-2.1) L 04/01/18 09:57 Ceruloplasmin 29 mg/dL (18-53) 03/27/18 11:52 Lipase 125 U/L (23-300) 03/24/18 20:59 Procalcitonin 0.70 NG/ML (0.19-0.49) H 04/01/18 05:55 Free T4 3.08 ng/dL (0.78-2.19) H 04/01/18 05:55 Thyroxine (T4) 6.80 ug/dL (5.5-11.0) 03/31/18 06:00 Free T3 pg/mL 6.87 pg/mL (2.77-5.27) H 04/01/18 05:55 Total T3 1.76 nmol/L (1.49-2.60) 03/29/18 07:01 Thyroglobulin, Quant 1360.2 ng/mL (2.8-40.9) H 03/25/18 20:42 TSH 3rd Generation < 0.02 mIU/L (0.46-4.68) L 03/31/18 06:00 Thyroid Stim Immunoglob 401 % baseline (<140) H 03/26/18 06:14 Cortisol AM Sample 118.0 ug/dL (4.46-22.7) H 03/28/18 06:02 Arterial Blood Potassium 4.0 mmol/L (3.6-5.2) 03/31/18 04:25 Urine Color Martha (YELLOW) 03/30/18 06:31 Urine Clarity Clear (Clear) 03/30/18 06:31 Urine pH 6.0 (5.0-8.0) 03/30/18 06:31 Ur Specific [place] 1.016 (1.003-1.030) 03/30/18 06:31 Urine Protein Negative mg/dL (NEGATIVE) 03/30/18 06:31 Urine Glucose (UA) 1+ mg/dL (Normal) 03/30/18 06:31 Urine Ketones Negative mg/dL (NEGATIVE) 03/30/18 06:31 Urine Blood 1+ (NEGATIVE) H 03/30/18 06:31 Urine Nitrate Negative (NEGATIVE) 03/30/18 06:31 Urine Bilirubin 1+ (NEGATIVE) H 03/30/18 06:31 Urine Urobilinogen Normal mg/dL (0.2-1.0) 03/30/18 06:31 Ur Leukocyte Esterase Neg Isabela/uL (Negative) 03/30/18 06:31 Urine WBC (Auto) 7 /hpf (0-5) H 03/30/18 06:31 Urine RBC (Auto) 16 /hpf (0-3) H 03/30/18 06:31 Ur Squamous Epith Cells < 1 /hpf (0-5) 03/30/18 06:31 Urine Bacteria Rare (<OCC) 03/30/18 06:31 Urine Yeast (Budding) Mod /hpf (NEGATIVE) H 03/27/18 13:40 Stool Occult Blood Positive (NEGATIVE) H 03/26/18 06:08 Stool Leukocytes, Qual Positive (NEGATIVE) H 03/25/18 08:15 Random Vancomycin 6.5 ug/mL 03/27/18 06:31 IgG 1286.3 mg/dL (700.0-1600.0) 03/27/18 11:52 RUSSELL Nuclear Membr Pat Negative (Negative) 03/27/18 11:52 Anti-Mitochondrial Ab Negative (Negative) 03/27/18 11:52 Smooth Muscle Ab Titer 1:20 Titer (< 1:20) H 03/27/18 11:52 Anti-Smooth Muscle Ab Positive (Negative) H 03/27/18 11:52 Thyroperoxidase Ab 77 IU/mL (<9) H 03/26/18 06:14 Thyroglobulin Antibody <1 IU/mL (< OR = 1) 03/25/18 20:42 C. difficile Ag & Toxin Negative (NEGATIVE) 03/25/18 08:15 Hepatitis A IgM Ab Negative (NEGATIVE) 03/27/18 11:52 Hep Bs Antigen Negative (NEGATIVE) 03/27/18 11:52 Hep B Core IgM Ab Negative (NEGATIVE) 03/27/18 11:52 Hepatitis C Antibody Negative (NEGATIVE) 03/27/18 11:52 HSV Source Description Serum 03/28/18 06:02 HSV I IgG Ab 35.30 index H 03/28/18 06:02 HSV II IgG <0.90 index 03/28/18 06:02 HSV I DNA PCR Not detected (Not Detected) 03/28/18 06:02 HSV II DNA PCR Not detected (Not Detected) 03/28/18 06:02 HIV 1&2 Antibody Screen Negative (NEGATIVE) 03/28/18 11:13 - Hospital Course Hospital Course: 72 year old female with past medical history of recently diagnosed hyperthyroidism presented to hospital for intractable diarrhea, N/V and fall. CT Abd/Pelvis on Admission showed gallbladder distended, thickwalled w minimal stranding of the pericholecystic fat. Gall bladder US showed cholelithiasis with gallbladder wall thickening and small amount of pericholecystic fluid. GI and surgery were consulted on this case. HIDA scan was ordered returned negative. Patient became tachycardic with respiratory distress. At this time ICU was consulted. Patient was was emergently intubated and started on treatment for thyroid storm which was likely 2/2 to iodine contrast. Patient was started on Propanol and Methimazole. patient Methimazole was switched to PTU. Patient began to be hypotensive as well requiring pressors. Endocrinology and Cardiology were consulted on the case. Patient did not wake up post intubated. Neurology was consulted for AMS. Chemical Anticoagulation stopped 2/2 to thromboyctopenia. Hematology was consulted on the case. Patient received freuqent EEG, Head CT, and 1 MRI (Done at [facility]). Hospital Course Complicated with Elevated LFT's which began to be trend down. ECHO showed systolic cardiomyopathy with EF of 20%. Pertinent labs and imaging below. EEG/MRI were consistent with a DDx of Seizures vs HSV encephalitis. ID was consulted on the case. Patient started on Anti-Seizure management and Acyclovir. After MRI it was decided by Neuro that patient would need continious EEG monitoring which is not offered at [facility] facilities. Patient transferred to [facility] ([place], [place]) for continuous EEG monitoring and continued management of multiple comorbidities. Blood cultures (03/24/18): no growth after 5 days X2 Blood cultures (03/25/18): no growth after 5 days X2 HSV 1 DNA and HSV II DNA: not detected HIV negative 03/28 EEG: Abnormal, frequent PLEDS 03/27 EEG: abnormal awake and drowsy EEG. periodic Lateralized epilpetiform discharges indicate pathology in left temporal lobe (on DD: HSV encephalitis; post stroke, post icital); spikes ~ seizures Brain MRI w/o contrast (03/31/18): atypical pattern of restricted diffusion is identified affecting primarily gyri of the bilateral frontal and temporal lobes w brainstem and basal ganglia appearing spared. Pattern of ischemia including--- > post seizure,HSV, hypoxic ischemic encephalopathy, CJD, venous sinus thrombosis. No evidence of brainstem infarction on acute or subacute CT Head (03/28/18): no acute intracranial abnormalities. No significant findings to account for clinical presentation. No significant interval change compared to prior examinations (prior head CT 03/26) CT Head and Neck (03/27/18): no occlusion or significant stenosis appreciated within intracranial and neck arterial circulation Anti-TPO: elevated (upper 70s) Thyroglobulin <1 Thyroglobulin: 1360.2 TSI 401-->likely Graves disease TSH: <0.02 Total T3: elevated 6.42--->1.76 (03/26-->03/29) Free T3: >22.80--->9.14 (03/26-->03/31) Free T4: >6.99-->4.76 (03/26-->03/31) Thyroxine: 6.80 Thyroid US (03/25/18): mildly enlarged right lobe and isthmus are identified with the left lobe upper limits normal size. Overall parenchymal appearance is heterogenous in echotexture without focal mass or cyst is defined Echocardiogram (03/25/18): left ventricle is mildly dilated, normal left ventricular wall thickness, systolic function is severely impaired. global hypokinesis of the left ventricle. No left ventricle thrombus noted on this study. Mild aortic regurgitation. Mitral regurgitation is mild to moderate moderate tricupsid regurgitation Chest xray (03/31/18): decreased pleural effusions 03/25/18 HIDA Scan: normal; cyst duct is patent CT abdomen/pelvis (IV contrast): gallbladder distended, thickwalled w minimal stranding of the pericholecystic fat. further findings per report Gallbladder US (03/25/18): cholelithiasis with gallbladder wall thickening and small amount of pericholecystic fluid. Anti-Smooth Ab: 1:20 is positive (unclear if Graves disease affects this) Anti-mitochondiral ab: negative Hepatitis Panel: NEGATIVE Angelina Berger (daughter, point of contact): [phone] Patient discussed with primary/ICU Attending Blanca Carmen, PGY- 1 Discharge Exam - Head Exam Head Exam: NORMAL INSPECTION - Additional Findings Additional findings: - Constitutional Appears: Toxic, In Acute Distress, Older Than Stated Age - Head Exam Head Exam: NORMAL INSPECTION Additional comments: +TLC Left line +OGT intubated - Eye Exam Pupil Exam: absent: Miosis, Mydriatic - ENT Exam ENT Exam: Mucous Membranes Dry - Respiratory Exam Respiratory Exam: Decreased Breath Sounds, Rales, NORMAL BREATHING PATTERN. absent: Wheezes - Cardiovascular Exam Cardiovascular Exam: REGULAR RHYTHM, +S1, +S2 - GI/Abdominal Exam GI & Abdominal Exam: Soft, Normal Bowel Sounds. absent: Distended, Firm, Guarding, Rigid, Tenderness, Rebound - Extremities Exam Extremities Exam: Pedal Edema Additional comments: b/l upper and lower extremities--swelling pitting - Neurological Exam Neurological Exam: Altered Additional comments: unable to retract upper and lower extremities pitting edema bilateral upper and lower extremities - Skin Additional comments: jaundice Discharge Plan - Follow Up Plan Condition: CRITICAL Disposition: Trans to Other Acute Care Hosp Additional Instructions: Patient transferred to [facility] w/ Nurse and Monitor. <Mignon Sullivan V - Last Filed: 04/01/18 21:00> Provider - Provider Date of Admission: 03/25/18 11:22 Attending physician: iMgnon Sullivan DO Diagnosis - Discharge Diagnosis (1) Acute respiratory failure Status: Acute (2) Metabolic encephalopathy Status: Acute (3) Thyroid storm Status: Acute (4) Cardiomyopathy Status: Acute (5) Smoker Status: Chronic (6) Seizure disorder Status: Acute (7) Abdominal pain Status: Acute (8) Transaminitis Status: Acute (9) Swelling Status: Acute (10) Thrombocytopenia Status: Acute (11) Prophylactic measure Status: Acute Hospital Course - Lab Results Lab Results: Micro Results 03/30/18 06:31 Urine,Garcia Urine Culture - Final No Growth (<1,000 CFU/ML) 03/25/18 16:00 Blood-Venous Blood Culture - Final NO GROWTH AFTER 5 DAYS 03/25/18 16:00 Blood-Venous Gram Stain - Final TEST NOT PERFORMED 03/25/18 16:30 Blood-Venous Blood Culture - Final NO GROWTH AFTER 5 DAYS 03/25/18 16:30 Blood-Venous Gram Stain - Final TEST NOT PERFORMED 03/24/18 20:46 Blood Blood Culture - Final NO GROWTH AFTER 5 DAYS 03/24/18 20:46 Blood Gram Stain - Final TEST NOT PERFORMED 03/24/18 20:46 Blood Blood Culture - Final NO GROWTH AFTER 5 DAYS 03/24/18 20:46 Blood Gram Stain - Final TEST NOT PERFORMED 03/27/18 13:50 Trachasp Gram Stain - Final 03/27/18 13:50 Trachasp Sputum Culture - Final Yeast Species 03/27/18 13:40 Urine,Garcia Urine Culture - Final Yeast Species 03/25/18 08:15 Stool Stool Culture - Final NO SALMONELLA, SHIGELLA OR CAMPYLOBACTER ISOLATED. 03/25/18 16:34 Urine,Catheterized Urine Culture - Final Yeast Species 03/25/18 05:57 Nose MRSA Culture (Admit) - Final MRSA NOT DETECTED Most Recent Lab Values WBC 10.1 K/uL (4.8-10.8) 04/01/18 09:57 RBC 3.56 Mil/uL (3.80-5.20) L 04/01/18 09:57 Hgb 11.4 g/dL (11.0-16.0) 04/01/18 09:57 Hct 33.9 % (34.0-47.0) L 04/01/18 09:57 MCV 95.2 fL (81.0-99.0) 04/01/18 09:57 MCH 32.0 pg (27.0-31.0) H 04/01/18 09:57 MCHC 33.6 g/dL (33.0-37.0) 04/01/18 09:57 RDW 15.5 % (11.5-14.5) H 04/01/18 09:57 Plt Count 94 K/uL (130-400) L 04/01/18 09:57 MPV 11.2 fL (7.2-11.7) 04/01/18 09:57 Neut % (Auto) 73.3 % (50.0-75.0) 04/01/18 09:57 Lymph % (Auto) 12.6 % (20.0-40.0) L 04/01/18 09:57 Greene % (Auto) 10.6 % (0.0-10.0) H 04/01/18 09:57 Eos % (Auto) 3.3 % (0.0-4.0) 04/01/18 09:57 Baso % (Auto) 0.2 % (0.0-2.0) 04/01/18 09:57 Neut # (Auto) 7.4 K/uL (1.8-7.0) H 04/01/18 09:57 Lymph # (Auto) 1.3 K/uL (1.0-4.3) 04/01/18 09:57 Greene # (Auto) 1.1 K/uL (0.0-0.8) H 04/01/18 09:57 Eos # (Auto) 0.3 K/uL (0.0-0.7) 04/01/18 09:57 Baso # (Auto) 0.0 K/uL (0.0-0.2) 04/01/18 09:57 Neutrophils % (Manual) 77 % (50-75) H 03/28/18 05:59 Band Neutrophils % 16 % (0-2) H* 03/28/18 05:59 Lymphocytes % (Manual) 5 % (20-40) L 03/28/18 05:59 Reactive Lymphs % 1 % (0-0) H 03/27/18 06:29 Monocytes % (Manual) 2 % (0-10) 03/28/18 05:59 Differential Comment 03/31/18 06:00 Toxic Granulation Present 03/26/18 06:13 Platelet Estimate Decreased (NORMAL) L 03/28/18 05:59 Large Platelets Present 03/28/18 05:59 RBC Morphology Normal 03/25/18 20:42 Polychromasia Slight 03/28/18 05:59 Hypochromasia (manual) Slight 03/28/18 05:59 Poikilocytosis (manual Slight 03/27/18 06:29 Anisocytosis (manual) Slight 03/28/18 05:59 Ovalocytes Slight 03/27/18 06:29 [place] Cells Slight 03/26/18 06:13 PT 25.4 SECONDS (9.7-12.2) H 04/01/18 13:37 INR 2.3 04/01/18 13:37 APTT 44 SECONDS (21-34) H 03/31/18 06:00 Fibrinogen 77 mg/dL (200-400) L 04/01/18 07:36 Puncture Site Rr 04/01/18 05:28 pCO2 43 mm/Hg (35-45) 04/01/18 05:28 pO2 91 mm/Hg (80-100) 04/01/18 05:28 HCO3 28.4 mmol/L (21-28) H 04/01/18 05:28 ABG pH 7.44 (7.35-7.45) 04/01/18 05:28 ABG Total CO2 30.5 mmol/L (22-28) H 04/01/18 05:28 ABG O2 Saturation 99.9 % (95-98) H 04/01/18 05:28 ABG Base Excess 4.5 mmol/L (-2.0-3.0) H 04/01/18 05:28 ABG Hemoglobin 11.8 g/dL (11.7-17.4) 04/01/18 05:28 ABG Carboxyhemoglobin 2.5 % (0.5-1.5) H 04/01/18 05:28 POC ABG HHb (Measured) 0.1 % (0.0-5.0) 04/01/18 05:28 ABG Methemoglobin 0.7 % (0.0-3.0) 04/01/18 05:28 Jake Test Pos 04/01/18 05:28 ABG Potassium 4.0 mmol/L (3.6-5.2) 03/31/18 04:25 A-a O2 Difference 212.0 mm/Hg 04/01/18 05:28 Respiratory Index 2.3 04/01/18 05:28 Hgb O2 Saturation 96.7 % (95.0-98.0) 04/01/18 05:28 Sodium 142.0 mmol/l (132-148) 03/31/18 04:25 Chloride 109.0 mmol/L (98-107) H 03/31/18 04:25 Glucose 140 mg/dl (65-105) H 03/31/18 04:25 Lactate 1.3 mmol/L (0.7-2.1) 03/31/18 04:25 Vent Mode Prvc 04/01/18 05:28 Mechanical Rate 16 04/01/18 05:28 FiO2 50.0 % 04/01/18 05:28 Tidal Volume 500 04/01/18 05:28 PEEP 5 04/01/18 05:28 Crit Value Called To Nirmala karimi/rn 03/26/18 04:25 Crit Value Called By Phil monge/rt 03/26/18 04:25 Crit Value Read Back Y 03/26/18 04:25 Blood Gas Notified Time 445 03/26/18 04:25 Sodium 144 mmol/L (132-148) 04/01/18 09:57 Potassium 4.3 mmol/L (3.6-5.2) 04/01/18 09:57 Chloride 111 mmol/L (98-107) H 04/01/18 09:57 Carbon Dioxide 28 mmol/L (22-30) 04/01/18 09:57 Anion Gap 9 (10-20) L 04/01/18 09:57 BUN 33 mg/dL (7-17) H 04/01/18 09:57 Creatinine 0.4 mg/dL (0.7-1.2) L 04/01/18 09:57 Est GFR ( Amer) > 60 04/01/18 09:57 Est GFR (Non-Af Amer) > 60 04/01/18 09:57 POC Glucose (mg/dL) 146 mg/dL (65-110) H 04/01/18 17:44 Random Glucose 134 mg/dL (65-105) H 04/01/18 09:57 Hemoglobin A1c 5.5 % (4.2-6.5) 03/28/18 07:08 Lactic Acid 1.7 mmol/L (0.7-2.1) 03/29/18 15:29 Calcium 7.7 mg/dl (8.6-10.4) L 04/01/18 09:57 Phosphorus 2.5 mg/dL (2.5-4.5) 03/31/18 06:00 Magnesium 2.0 mg/dL (1.6-2.3) 03/31/18 06:00 Total Bilirubin 13.4 mg/dL (0.2-1.3) H 04/01/18 09:57 Direct Bilirubin 11.4 mg/dL (0.0-0.4) H 04/01/18 05:55 GGT 41 U/L (8-78) 04/01/18 05:55 AST 167 U/L (14-36) H D 04/01/18 09:57 ALT 259 U/L (9-52) H D 04/01/18 09:57 Alkaline Phosphatase 70 U/L (38-126) 04/01/18 09:57 Ammonia 20 umol/L (9-33) D 04/01/18 05:55 Lactate Dehydrogenase 893 U/L (313-618) H 04/01/18 05:55 Total Creatine Kinase 431 U/L (30-135) H 03/28/18 08:32 CK-MB (Mass) 21.2 ng/mL (0.0-3.38) H 03/26/18 03:16 Troponin I 0.1160 ng/mL (0.00-0.120) 03/26/18 03:16 Total Protein 5.6 g/dL (6.3-8.3) L 04/01/18 09:57 Albumin 2.6 g/dL (3.5-5.0) L D 04/01/18 09:57 Globulin 3.0 gm/dL (2.2-3.9) 04/01/18 09:57 Albumin/Globulin Ratio 0.9 (1.0-2.1) L 04/01/18 09:57 Ceruloplasmin 29 mg/dL (18-53) 03/27/18 11:52 Lipase 125 U/L (23-300) 03/24/18 20:59 Procalcitonin 0.70 NG/ML (0.19-0.49) H 04/01/18 05:55 Free T4 3.08 ng/dL (0.78-2.19) H 04/01/18 05:55 Thyroxine (T4) 6.80 ug/dL (5.5-11.0) 03/31/18 06:00 Free T3 pg/mL 6.87 pg/mL (2.77-5.27) H 04/01/18 05:55 Total T3 1.76 nmol/L (1.49-2.60) 03/29/18 07:01 Thyroglobulin, Quant 1360.2 ng/mL (2.8-40.9) H 03/25/18 20:42 TSH 3rd Generation < 0.02 mIU/L (0.46-4.68) L 03/31/18 06:00 Thyroid Stim Immunoglob 401 % baseline (<140) H 03/26/18 06:14 Cortisol AM Sample 118.0 ug/dL (4.46-22.7) H 03/28/18 06:02 Arterial Blood Potassium 4.0 mmol/L (3.6-5.2) 03/31/18 04:25 Urine Color Martha (YELLOW) 03/30/18 06:31 Urine Clarity Clear (Clear) 03/30/18 06:31 Urine pH 6.0 (5.0-8.0) 03/30/18 06:31 Ur Specific [place] 1.016 (1.003-1.030) 03/30/18 06:31 Urine Protein Negative mg/dL (NEGATIVE) 03/30/18 06:31 Urine Glucose (UA) 1+ mg/dL (Normal) 03/30/18 06:31 Urine Ketones Negative mg/dL (NEGATIVE) 03/30/18 06:31 Urine Blood 1+ (NEGATIVE) H 03/30/18 06:31 Urine Nitrate Negative (NEGATIVE) 03/30/18 06:31 Urine Bilirubin 1+ (NEGATIVE) H 03/30/18 06:31 Urine Urobilinogen Normal mg/dL (0.2-1.0) 03/30/18 06:31 Ur Leukocyte Esterase Neg [place]/uL (Negative) 03/30/18 06:31 Urine WBC (Auto) 7 /hpf (0-5) H 03/30/18 06:31 Urine RBC (Auto) 16 /hpf (0-3) H 03/30/18 06:31 Ur Squamous Epith Cells < 1 /hpf (0-5) 03/30/18 06:31 Urine Bacteria Rare (<OCC) 03/30/18 06:31 Urine Yeast (Budding) Mod /hpf (NEGATIVE) H 03/27/18 13:40 Stool Occult Blood Positive (NEGATIVE) H 03/26/18 06:08 Stool Leukocytes, Qual Positive (NEGATIVE) H 03/25/18 08:15 Random Vancomycin 6.5 ug/mL 03/27/18 06:31 IgG 1286.3 mg/dL (700.0-1600.0) 03/27/18 11:52 RUSSELL Nuclear Membr Pat Negative (Negative) 03/27/18 11:52 Anti-Mitochondrial Ab Negative (Negative) 03/27/18 11:52 Smooth Muscle Ab Titer 1:20 Titer (< 1:20) H 03/27/18 11:52 Anti-Smooth Muscle Ab Positive (Negative) H 03/27/18 11:52 Thyroperoxidase Ab 77 IU/mL (<9) H 03/26/18 06:14 Thyroglobulin Antibody <1 IU/mL (< OR = 1) 03/25/18 20:42 C. difficile Ag & Toxin Negative (NEGATIVE) 03/25/18 08:15 Hepatitis A IgM Ab Negative (NEGATIVE) 03/27/18 11:52 Hep Bs Antigen Negative (NEGATIVE) 03/27/18 11:52 Hep B Core IgM Ab Negative (NEGATIVE) 03/27/18 11:52 Hepatitis C Antibody Negative (NEGATIVE) 03/27/18 11:52 HSV Source Description Serum 03/28/18 06:02 HSV I IgG Ab 35.30 index H 03/28/18 06:02 HSV II IgG <0.90 index 03/28/18 06:02 HSV I DNA PCR Not detected (Not Detected) 03/28/18 06:02 HSV II DNA PCR Not detected (Not Detected) 03/28/18 06:02 HIV 1&2 Antibody Screen Negative (NEGATIVE) 03/28/18 11:13 Attending/Attestation - Attestation I have personally seen and examined this patient.: Yes I have fully participated in the care of the patient.: Yes I have reviewed all pertinent clinical information, including history, physical exam and plan: Yes Notes (Text): Addendu,: Patient under the ICU care, needed transfer to facility to support continuous EEG monitoring given seizure activity noted in EEGs. We attempted to call [facility] multiple times today but there is no bed available. Patient was ultimately accepted at [facility] for continuous EEG monitoring. Patient is on pressors, remains intubated. During hospitalization, endocrinology, hematology, neurology, GI, critical care , general surgery consulted during hospitalization. Help appreciated. This is a summary of patient's hospitalization. Please refer to medical record for further details of record. Discharge Diagnoses (1) Acute respiratory failure Assessment & Plan: intubated 03/26/18 Bedside echocardiogam and doppler 04/01/18 patient remains with low ejection fraction, no clot observed, no dvt observed remains intubated Status: Acute (2) Metabolic encephalopathy Assessment & Plan: Neurology (Dr. Gross/Javid) on board etiologies: thyroid storm; infectious etiology; seizure related? Completed MRI which was inconclusive except ruled out brainstem stroke; varied differential diagnoses on official report Anti-seizure medication: * Keppra 1500mg IV Q12H * start Vimpat 100mg IV Q12 Given consideration for HSV encephalitis: * Patient started on Acyclovir 500mg IV Q12H (started on 03/27/18), Cefepime 1gm IV Q12 (active since 03/30/18), and Vancomycin 1gm IVPB Q24H (active since ) * Patient unable to have LP secondary to thrombocytopenia and elevated INR refractory to vitamin K * Blood cultures (03/24/18): no growth after 5 days X2 * Blood cultures (03/25/18): no growth after 5 days X2 * HSV 1 DNA and HSV II DNA: not detected * HIV negative Imagin/18 EEG: Abnormal, frequent PLEDS 03/27 EEG: abnormal awake and drowsy EEG. periodic Lateralized epilpetiform discharges indicate pathology in left temporal lobe (on DD: HSV encephalitis; post stroke, post icital); spikes ~ seizures 03/31 EEGL abnormal EEG, prolonged seizure and PLEDS indicate epileptiform activity Brain MRI w/o contrast (03/31/18): atypical pattern of restricted diffusion is identified affecting primarily gyri of the bilateral frontal and temporal lobes w brainstem and basal ganglia appearing spared. Pattern of ischemia including--- > post seizure,HSV, hypoxic ischemic encephalopathy, CJD, venous sinus thrombosis. No evidence of brainstem infarction on acute or subacute CT Head (03/28/18): no acute intracranial abnormalities. No significant findings to account for clinical presentation. No significant interval change compared to prior examinations (prior head CT 03/26) CT Head and Neck (03/27/18): no occlusion or significant stenosis appreciated within intracranial and neck arterial circulation 03/31: off sedation by ICU; completed MRI; ICU discussed with family regarding findings; will need to f/u neurology regarding LP 04/01: patient is on sedation. newest eeg: showing seizure. patient is needing continuous eeg monitor. started on second anti-seizure medication; patient accepted to [facility] for continous EEG monitoring. Status: Acute (3) Thyroid storm Assessment & Plan: Endocrinology (Dr. House) on board-->help appreciated titrate PTU 150mg PO Q8H (start 03/31/18) from prior dosing Propranolol 10mg PO daily Review of thyroid workup: Anti-TPO: elevated (upper 70s) Thyroglobulin <1 Thyroglobulin: 1360.2 TSI 401-->likely Graves disease TSH: <0.02 Total T3: elevated 6.42--->1.76 (03/26-->03/29) Free T3: >22.80--->6.87 (03/26-->03/31) Free T4: >6.99-->3.08 (03/26-->03/31) Thyroxine: 6.80 Thyroid US (03/25/18): mildly enlarged right lobe and isthmus are identified with the left lobe upper limits normal size. Overall parenchymal appearance is heterogenous in echotexture without focal mass or cyst is defined Status: Acute (4) Cardiomyopathy Assessment & Plan: * Cardiology (Dr. Trevino) on case--> help appreciated * Likely due to thyrotoxicois * Inderal 10mg PO daily * Echocardiogram (03/25/18): left ventricle is mildly dilated, normal left ventricular wall thickness, systolic function is severely impaired. global hypokinesis of the left ventricle. No left ventricle thrombus noted on this study. Mild aortic regurgitation. Mitral regurgitation is mild to moderate moderate tricupsid regurgitation * Chest xray (03/31/18): decreased pleural effusions * Repeat echocardiogram (04/01/18); pending official report Status: Acute (5) Smoker Status: Chronic (6) Seizure disorder Assessment & Plan: Anti-seizure medication: * Keppra 1500mg IV Q12H * start Vimpat 100mg IV Q12 Given consideration for HSV encephalitis: * Patient started on Acyclovir 500mg IV Q12H (started on 03/27/18), Cefepime 1gm IV Q12 (active since 03/30/18), and Vancomycin 1gm IVPB Q24H (active since ) * Patient unable to have LP secondary to thrombocytopenia and elevated INR refractory to vitamin K * Blood cultures (03/24/18): no growth after 5 days X2 * Blood cultures (03/25/18): no growth after 5 days X2 * HSV 1 DNA and HSV II DNA: not detected * HIV negative Imagin/18 EEG: Abnormal, frequent PLEDS 03/27 EEG: abnormal awake and drowsy EEG. periodic Lateralized epilpetiform discharges indicate pathology in left temporal lobe (on DD: HSV encephalitis; post stroke, post icital); spikes ~ seizures 03/31 EEGL abnormal EEG, prolonged seizure and PLEDS indicate epileptiform activity Brain MRI w/o contrast (03/31/18): atypical pattern of restricted diffusion is identified affecting primarily gyri of the bilateral frontal and temporal lobes w brainstem and basal ganglia appearing spared. Pattern of ischemia including--- > post seizure,HSV, hypoxic ischemic encephalopathy, CJD, venous sinus thrombosis. No evidence of brainstem infarction on acute or subacute CT Head (03/28/18): no acute intracranial abnormalities. No significant findings to account for clinical presentation. No significant interval change compared to prior examinations (prior head CT 03/26) CT Head and Neck (03/27/18): no occlusion or significant stenosis appreciated within intracranial and neck arterial circulation 03/31: off sedation by ICU; completed MRI; ICU discussed with family regarding findings; will need to f/u neurology regarding LP 04/01: patient is on sedation. newest eeg: showing seizure. patient is needing continuous eeg monitor. started on second anti-seizure medication; patient accepted to [facility] for continous EEG monitoring. Status: Acute (7) Abdominal pain Assessment & Plan: Consult initially for acute cholecystitis General surgery (Dr. Cummins) on board-->help appreciated * no acute general surgical intervention; IV abx GI (Dr. Pacheco) on board-->help appreciated 03/25/18 HIDA Scan: normal; cyst duct is patent CT abdomen/pelvis (IV contrast): gallbladder distended, thickwalled w minimal stranding of the pericholecystic fat. further findings per report Gallbladder US (03/25/18): cholelithiasis with gallbladder wall thickening and small amount of pericholecystic fluid. Status: Acute (8) Transaminitis Assessment & Plan: 04/01: improving; INR refractory to Vitamin K. hematology-oncology consulted given low fibrinogen, recommendation for cryopreciptate 03/31: Downtrending Ammonia improved; was on lactulose; d/c secondary to diarrhea today Note: patient is on PTU, Acyclovir, Cefepime, fluonazole Anti-Smooth Ab: 1:20 is positive (unclear if Graves disease affects this) Anti-mitochondiral ab: negative Completed 3 doses of Vitamin K 10mg, last dose 03/31/18 On cholyestraime GI (Dr. Pacheco's group) on board-->help appreciated Hepatitis panel negative multifactorial: drug induced, acute phase reactant CT abdomen/pelvis (IV contrast): gallbladder distended, thickwalled w minimal stranding of the pericholecystic fat. further findings per report Gallbladder US (03/25/18): cholelithiasis with gallbladder wall thickening and small amount of pericholecystic fluid. Noted liver hypodensity that cannot be further characterized on current examination Status: Acute (9) Swelling Assessment & Plan: low albumin third spacing Receiving IV albumin Status: Acute (10) Thrombocytopenia Assessment & Plan: no LP at this time; given bleeding risk Status: Acute (11) Prophylactic measure Assessment & Plan: intubated 03/26 TLC 03/26 OGT tube NGT Garcia Angelina Berger (daughter, point of contact): [phone]-->updated during hospitalization; including discussion with ICU chemical anticoagulation contraindicated secondary to thrombocytopenia Pepcid 20mg PO day NS 75 cc/hr On sedation 03/31 On 2 pressors Status: Acute
[2018-04-01 19:16] VITALS: BP 112/47; RESP 21
--- NOTE | 2018-04-02 11:39 | CARD ---
APPROVED REPORT EXAM: LIMITED Two-dimensional echocardiogram. Other Information Quality : GoodRhythm : INDICATION Dyspnea Rule out thrombus/ Desaturation LEFT VENTRICLE The Left Ventricle is moderately dilated. suspicious for lv thrombus. There is normal left ventricular wall thickness. The systolic function is moderately impaired. ATRIA The left atrium is moderately dilated. The right atrium size is normal. AORTIC VALVE The aortic valve is normal in structure. MITRAL VALVE The mitral valve is normal in structure. <Conclusion> The Left Ventricle is moderately dilated. suspicious for lv thrombus. The systolic function is moderately impaired. limited study.
--- NOTE | 2018-04-02 15:15 | VASCLAB ---
PROCEDURE: Lower Extremity Venous Duplex Exam. HISTORY: R/O DVT PRIORS: None. TECHNIQUE: Bilateral common femoral, femoral, popliteal and posterior tibial, peroneal and great saphenous veins were evaluated. Flow was assessed with color Doppler, compressibility, assessment of phasic flow and augmentation response. Report prepared by Lucius Conde, GERARDO, RVT FINDINGS: RIGHT: 1. Common Femoral Vein: 1.1. Compressibility - Fully compressible: Thrombus - None : Flow - Phasic: Augmentation -Normal: Reflux - None. 2. Femoral Vein: 2.1. Compressibility - Fully compressible: Thrombus - None : Flow - Phasic: Augmentation -Normal: Reflux - None. 3. Popliteal Vein: 3.1. Compressibility - Fully compressible: Thrombus - None : Flow - Phasic: Augmentation -Normal: Reflux - None. 4. Posterior Tibial Vein: 4.1. Compressibility - Fully compressible: Thrombus - None: Flow - Phasic: Augmentation -Normal: Reflux - None. 5. Peroneal Vein: 5.1. Compressibility - Fully compressible: Thrombus - None: Flow - Phasic: Augmentation -Normal: Reflux - None. 6. Great Saphenous Vein: 6.1. Compressibility - Fully compressible: Thrombus - None: Flow - Phasic: Augmentation - Normal: Reflux - None. LEFT: 1. Common Femoral Vein: 1.1. Compressibility - Fully compressible: Thrombus - None: Flow - Phasic: Augmentation -Normal: Reflux - None. 2. Femoral Vein: 2.1. Compressibility - Fully compressible: Thrombus - None: Flow - Phasic: Augmentation -Normal: Reflux - None. 3. Popliteal Vein: 3.1. Compressibility - Fully compressible: Thrombus - None : Flow - Phasic: Augmentation -Normal: Reflux - None. 4. Posterior Tibial Vein: 4.1. Compressibility - Fully compressible: Thrombus - None: Flow - Phasic: Augmentation -Normal: Reflux - None. 5. Peroneal Vein: 5.1. Compressibility - Fully compressible: Thrombus - None: Flow - Phasic: Augmentation -Normal: Reflux - None. 6. Great Saphenous Vein: 6.1. Compressibility - Fully compressible: Thrombus - None: Flow - Phasic: Augmentation - Normal: Reflux - None. OTHER FINDINGS: Technically limited study due to severe swelling of the lower extremities. IMPRESSION: Right: No evidence of deep or superficial vein thrombosis of the right lower extremity. Normal valve function noted of the right side. Left: No evidence of deep or superficial vein thrombosis of the left lower extremity. Normal valve function noted of the left side.
== END 2018-04-01 20:47 | disposition short-term general hospital (02) | DRG 870 ==
LOC: C.ER 20:23 → C.9E 03-25 01:24 → UNDOADMOB 03-25 02:09 → C.9E 03-25 02:45 → C.3T 03-25 02:45 → C.9E 03-25 02:59 → C.9I 03-25 06:14 → OBSVTOIN 03-25 11:22 → INTOOBSV 03-25 11:22
PROVIDERS: ADMIT Hospitalist; ATTEND Hospitalist
PROC: 0BH17EZ Insertion of Endotracheal Airway into Trachea, Via Natural or Artificial Opening (ICD-10-PCS; principal; 2018-03-25)
PROC: 5A1955Z Respiratory Ventilation, Greater than 96 Consecutive Hours (ICD-10-PCS; 2018-03-25)
PROC: 4A043B0 Measurement of Venous Pressure, Central, Percutaneous Approach (ICD-10-PCS; 2018-03-26)
DX: A41.9 Sepsis, unspecified organism (principal); E05.01 Thyrotoxicosis with diffuse goiter with thyrotoxic crisis or storm; B00.4 Herpesviral encephalitis; D65 Disseminated intravascular coagulation [defibrination syndrome]; G93.41 Metabolic encephalopathy; I50.23 Acute on chronic systolic (congestive) heart failure; J96.01 Acute respiratory failure with hypoxia; K72.00 Acute and subacute hepatic failure without coma; R57.0 Cardiogenic shock; R65.21 Severe sepsis with septic shock; E06.0 Acute thyroiditis; E87.2 Acidosis; I42.9 Cardiomyopathy, unspecified; K80.00 Calculus of gallbladder with acute cholecystitis without obstruction; N17.9 Acute kidney failure, unspecified; M62.82 Rhabdomyolysis; E11.649 Type 2 diabetes mellitus with hypoglycemia without coma; E78.5 Hyperlipidemia, unspecified; D73.89 Other diseases of spleen; E83.51 Hypocalcemia; E86.0 Dehydration; E87.6 Hypokalemia; F17.200 Nicotine dependence, unspecified, uncomplicated; G40.901 Epilepsy, unspecified, not intractable, with status epilepticus; I11.0 Hypertensive heart disease with heart failure; I35.1 Nonrheumatic aortic (valve) insufficiency; K52.9 Noninfective gastroenteritis and colitis, unspecified; I34.0 Nonrheumatic mitral (valve) insufficiency; I36.1 Nonrheumatic tricuspid (valve) insufficiency